=== PATIENT | male | born 1940 | race Caucasian/White ===

== ENCOUNTER → 2019-10-02 | Outpatient (CLI) | payer MEDICARE, SELFPAY ==
[2019-10-02 09:50] VITALS: BMI 40.7
[2019-10-02 12:50] LABS: Anion Gap 5 (5-15); BUN 17 mg/dL (7-18); BUN/Creat Ratio 14.8 RATIO (10-20); Calcium,Total 8.8 mg/dL (8.5-10.1); Chloride 107 mmol/L (98-107); Creatinine, Serum 1.15 mg/dL (0.70-1.30); EST Glomerular Filtration Rate 65 mL/min (>60); Est Glom Filt Rate - Afr Amer 79 mL/min (>60); Glucose 104 mg/dL (74-106); Potassium 3.9 mmol/L (3.5-5.1); Sodium Level 141 mmol/L (136-145)
== END | disposition home or self-care (01) ==
PROVIDERS: PCP Nurse Practitioner Family; Referring Provider Internal Medicine Cardiovascular Disease; Visit Provider Internal Medicine Cardiovascular Disease
DX: I10 Essential (primary) hypertension (principal)
CPT/HCPCS: 36415; 80048

== ENCOUNTER → 2019-10-21 | Outpatient (CLI) | payer MEDICARE, SELFPAY ==
[2019-10-02 09:50] VITALS: BMI 40.7
--- NOTE | 2019-10-21 10:01 | ECHOD_ITS ---
Reason For Study: CAD/ASHD Procedure This was a 2D Doppler, Color Flow transthoracic echocardiogram. Exam performed in department. Left Ventricle Normal LV size. Moderate concentric left ventricular hypertrophy. Left ventricular systolic function is normal. The estimated ejection fraction is 70 %. Stage 1 diastolic dysfunction. No regional wall motion abnormalities noted. Right Ventricle Normal RV size. Normal systolic function. Atria The left atrium is moderately enlarged. Normal right atrium. Mitral Valve Normal mitral valve. Tricuspid Valve Normal tricuspid valve. Aortic Valve Normal aortic valve. Trisinus/trileaflet aortic valve. Pulmonic Valve Normal pulmonic valve. Great Vessels Normal aortic root. The pulmonary artery is normal size. Normal inferior vena cava. Pericardium/Pleural No pericardial effusion. MMode/2D Measurements & Calculations LVIDd: 5.2 cm IVSd: 1.8 cm Ao root diam: 3.3 cm LVIDs: 3.9 cm LVPWd: 1.5 cm RVDd: 3.5 cm FS: 24.9 % LAV(MOD-bp): 120.5 ml LA A4 area: 29.9 cm2 LA dimension(2D): 5.4 cm LAV(MOD-bp) Indexed: 55.9 ml/m2 LAV(MOD-sp2): 110.3 ml LAV(MOD-sp4): 121.3 ml RA A4 area: 19.8 cm2 Time Measurements MV dec time: 0.21 sec Doppler Measurements & Calculations MV E max yuval: 72.0 cm/sec Lat Peak E' Yuval: 5.7 cm/sec Med Peak E' Yuval: 4.7 cm/sec MV A max yuval: 103.7 cm/sec E/E' lat: 12.6 E/E' med: 15.2 MV E/A: 0.69 Ao V2 max: 169.3 cm/sec LV V1 max: 81.9 cm/sec MR max yuval: 572.7 cm/sec Ao max P.5 mmHg LV V1 max P.7 mmHg MR max P.2 mmHg PA V2 max: 94.2 cm/sec TR max yuval: 191.8 cm/sec TR max P.7 mmHg Interpretation Summary Normal LV size. Moderate concentric left ventricular hypertrophy. Left ventricular systolic function is normal. The estimated ejection fraction is 70 %. Stage 1 diastolic dysfunction. The left atrium is moderately enlarged. Ordering Physician: Papa Morgan Referring Physician: Rajesh Caal Performed By: Aaliyah Lares RVT, RDCS and Student
== END | disposition home or self-care (01) ==
PROVIDERS: PCP Nurse Practitioner Family; Referring Provider Internal Medicine Cardiovascular Disease; Visit Provider Internal Medicine Cardiovascular Disease
DX: I25.10 Atherosclerotic heart disease of native coronary artery without angina pectoris (principal)
CPT/HCPCS: 93306

== ENCOUNTER → 2019-12-19 | Outpatient (CLI) | payer MEDICARE, SELFPAY ==
[2019-10-02 09:50] VITALS: BMI 40.7
[2019-12-19 09:08] LABS: Hematocrit 40.2 % (40-54); Hemoglobin 12.9 g/dL (13.0-16.5); Mean Corp Hgb Conc 32.1 g/dL (32-36); Mean Corpuscular Hgb 30.9 pg (27.0-32.0); Mean Corpuscular Volume 96.4 fL (80-94); Mean Platelet Vol. 10.3 fl (6.2-12.0); Platelet Count 132 K/mm3 (150-450); RBC Distribution Width CV 13.9 % (11.6-14.6); RBC Distribution Width SD 48.9 fl (35.1-43.9); Red Blood Count 4.17 M/mm3 (4.6-6.2); White Blood Count 7.1 K/mm3 (4.4-11.0)
[2019-12-19 09:37] LABS: Vitamin D,25 Hydroxy 46.4 ng/mL
[2019-12-19 09:38] LABS: AST(SGOT) 31 U/L (15-37); Alanine Aminotransfer ALT/SGPT 27 U/L (16-61); Albumin, Serum 3.8 g/dL (3.2-5.0); Alkaline Phosphatase 78 U/L (45-117); Anion Gap 4 (5-15); BUN 15 mg/dL (7-18); BUN/Creat Ratio 12.3 RATIO (10-20); Calcium,Total 9.6 mg/dL (8.5-10.1); Chloride 104 mmol/L (98-107); Cholesterol 91 mg/dL (200); Creatinine, Serum 1.22 mg/dL (0.70-1.30); EST Glomerular Filtration Rate 61 mL/min (>60); Est Glom Filt Rate - Afr Amer 74 mL/min (>60); Globulin 3.7 g/dL (2.2-4.2); Glucose 110 mg/dL (74-106); High Density Lipoprotein 28 mg/dL; Potassium 3.7 mmol/L (3.5-5.1); Protein, Total 7.5 g/dL (6.4-8.2); Sodium Level 139 mmol/L (136-145); Triglycerides 118 mg/dL; Very Low Density Lipoprotein 24 mg/dL (5-40)
== END | disposition home or self-care (01) ==
LOC: LAB 08:21
PROVIDERS: PCP Nurse Practitioner Family; Referring Provider Nurse Practitioner Family; Visit Provider Nurse Practitioner Family
DX: E55.9 Vitamin D deficiency, unspecified (principal); I12.9 Hypertensive chronic kidney disease with stage 1 through stage 4 chronic kidney disease, or unspecified chronic kidney disease; N18.9 Chronic kidney disease, unspecified; R73.01 Impaired fasting glucose; E78.5 Hyperlipidemia, unspecified; I25.10 Atherosclerotic heart disease of native coronary artery without angina pectoris
CPT/HCPCS: 36415; 80053; 80061; 82306; 85027

== ENCOUNTER → 2020-06-18 08:51 | Outpatient (CLI) | payer MEDICARE, SELFPAY ==
[2019-10-02 09:50] VITALS: BMI 40.7
[2020-06-18 10:30] LABS: Hematocrit 36.9 % (40-54); Hemoglobin 12.1 g/dL (13.0-16.5); Mean Corp Hgb Conc 32.8 g/dL (32-36); Mean Corpuscular Hgb 31.8 pg (27.0-32.0); Mean Corpuscular Volume 96.9 fL (80-94); Mean Platelet Vol. 10.3 fl (6.2-12.0); Platelet Count 129 K/mm3 (150-450); RBC Distribution Width CV 14.3 % (11.6-14.6); RBC Distribution Width SD 50.6 fl (35.1-43.9); Red Blood Count 3.81 M/mm3 (4.6-6.2); White Blood Count 6.8 K/mm3 (4.4-11.0)
[2020-06-18 10:56] LABS: Vitamin D,25 Hydroxy 37.2 ng/mL
[2020-06-18 11:03] LABS: AST(SGOT) 23 U/L (15-37); Alanine Aminotransfer ALT/SGPT 22 U/L (16-61); Albumin, Serum 3.7 g/dL (3.2-5.0); Alkaline Phosphatase 70 U/L (45-117); Anion Gap 5 (5-15); BUN 20 mg/dL (7-18); BUN/Creat Ratio 17.4 RATIO (10-20); Calcium,Total 9.1 mg/dL (8.5-10.1); Chloride 105 mmol/L (98-107); Cholesterol 97 mg/dL (200); Creatinine, Serum 1.15 mg/dL (0.70-1.30); EST Glomerular Filtration Rate 65 mL/min (>60); Est Glom Filt Rate - Afr Amer 79 mL/min (>60); Globulin 3.7 g/dL (2.2-4.2); Glucose 101 mg/dL (74-106); High Density Lipoprotein 28 mg/dL; Potassium 3.9 mmol/L (3.5-5.1); Protein, Total 7.4 g/dL (6.4-8.2); Sodium Level 141 mmol/L (136-145); Triglycerides 124 mg/dL; Very Low Density Lipoprotein 25 mg/dL (5-40)
== END ==
PROVIDERS: PCP Nurse Practitioner Family; Referring Provider Nurse Practitioner Family; Visit Provider Nurse Practitioner Family
DX: E55.9 Vitamin D deficiency, unspecified (principal); E78.5 Hyperlipidemia, unspecified; I12.9 Hypertensive chronic kidney disease with stage 1 through stage 4 chronic kidney disease, or unspecified chronic kidney disease; N18.9 Chronic kidney disease, unspecified
CPT/HCPCS: 36415; 80053; 80061; 82306; 85027

== ENCOUNTER → 2020-06-29 14:54 | Outpatient (CLI) | payer MEDICARE, SELFPAY ==
[2019-10-02 09:50] VITALS: BMI 40.7
--- NOTE | 2020-06-29 14:57 | VDLE_ITS ---
Reason For Study: Pain in LLE Procedure LEFT This is a venous duplex using B-mode, color GSV is normal. flow and spectral Doppler. CFV is compressible, spontaneous, phasic, Exam performed in department. competent, and demonstrates normal A preliminary report was called and/or faxed augmentation. to [facility]. FV is compressible, spontaneous, phasic, competent and demonstrates normal augmentation. POP V is compressible, spontaneous, phasic, competent and demonstrates normal augmentation. T/P Trunk is compressible. PTV is compressible. LT PerV is compressible. VL/Venous Duplex US, Unilateral Interpretation Summary Left no DVT or SVT. Ordering Physician: Rajesh Caal Referring Physician: Rajesh Caal Performed By: Allison Lund RVT
--- NOTE | 2020-06-29 15:30 | RAD_ITS ---
ACR Level 3 findings have been noted. An addendum which confirms receipt of the report will follow. INDICATION: CHRONIC BACK PAIN THAT IS WORSENING AND NOW HAVING RADICULAR PAIN -- LEFT SIDE EXAMINATION/TECHNIQUE: X-RAY - XR Spine Lumbar 2 or 3 Views COMPARISON: None. FINDINGS: VERTEBRAE: Preserved vertebral body height. Age-indeterminate anterior wedge compression deformity of L1. 7 mm anterolisthesis L4 on L5. Preservation of the normal lumbar lordosis. Mild left convex curvature of the lumbar spine. Severe multilevel facet arthropathy. DISCS: Moderate multilevel disc space narrowing and osteophytosis, most severe at L5-S1. INCLUDED ABDOMEN: Mild air-filled dilatation of the large bowel measuring up to 6.4 cm in diameter. No small bowel dilatation. Partially visualized right hip arthroplasty. RAD/Lumbar Spine 2 or 3 Views IMPRESSION: Mild air-filled dilatation of the large bowel measuring up to 6.4 cm in diameter. No small bowel dilatation. Recommend clinical correlation. Age-indeterminate anterior wedge compression deformity of L1. Grade 1 anterolisthesis L4 on L5. Moderate multilevel lumbar spondylosis. Severe multilevel facet arthropathy. Electronically Signed: Erik Vazquez MD at 16:33 EDT Tel , Service support ,
== END ==
PROVIDERS: PCP Nurse Practitioner Family; Referring Provider Nurse Practitioner Family; Visit Provider Nurse Practitioner Family
DX: M79.662 Pain in left lower leg (principal); M54.5 Low back pain
CPT/HCPCS: 72100; 93971

== ENCOUNTER → 2020-12-21 08:39 | Outpatient (CLI) | payer MEDICARE, SELFPAY ==
[2020-12-21 09:35] LABS: Hematocrit 35.3 % (40-54); Hemoglobin 11.4 g/dL (13.0-16.5); Mean Corp Hgb Conc 32.3 g/dL (32-36); Mean Corpuscular Hgb 31.8 pg (27.0-32.0); Mean Corpuscular Volume 98.3 fL (80-94); Platelet Count 109 K/mm3 (150-450); RBC Distribution Width CV 14.8 % (11.6-14.6); RBC Distribution Width SD 53.1 fl (35.1-43.9); Red Blood Count 3.59 M/mm3 (4.6-6.2); White Blood Count 6.9 K/mm3 (4.4-11.0)
[2020-12-21 10:03] LABS: Vitamin D,25 Hydroxy 34.5 ng/mL
[2020-12-21 10:09] LABS: ALB/GLOB Ratio 0.8 RATIO (0.9-2.4); AST(SGOT) 30 U/L (15-37); Alanine Aminotransfer ALT/SGPT 31 U/L (16-61); Albumin, Serum 3.4 g/dL (3.2-5.0); Alkaline Phosphatase 68 U/L (45-117); Anion Gap 7 (5-15); BUN 20 mg/dL (7-18); BUN/Creat Ratio 16.7 RATIO (10-20); CRP < 2.90 mg/L (0.0-3.0); Calcium,Total 9.2 mg/dL (8.5-10.1); Chloride 107 mmol/L (98-107); Cholesterol 98 mg/dL (200); EST Glomerular Filtration Rate 62 mL/min (>60); Est Glom Filt Rate - Afr Amer 75 mL/min (>60); Globulin 4.1 g/dL (2.2-4.2); Glucose 111 mg/dL (74-106); High Density Lipoprotein 26 mg/dL; PSA,Total- Diagnostic 1.12 ng/mL (0.0-4.0); Potassium 4.1 mmol/L (3.5-5.1); Protein, Total 7.5 g/dL (6.4-8.2); Sodium Level 143 mmol/L (136-145); Triglycerides 142 mg/dL; Very Low Density Lipoprotein 28 mg/dL (5-40)
== END ==
PROVIDERS: PCP Nurse Practitioner Family; Visit Provider Nurse Practitioner Family
DX: D69.6 Thrombocytopenia, unspecified (principal); N40.0 Benign prostatic hyperplasia without lower urinary tract symptoms; E55.9 Vitamin D deficiency, unspecified; I13.0 Hypertensive heart and chronic kidney disease with heart failure and stage 1 through stage 4 chronic kidney disease, or unspecified chronic kidney disease; I50.9 Heart failure, unspecified; N18.9 Chronic kidney disease, unspecified; I25.10 Atherosclerotic heart disease of native coronary artery without angina pectoris; E78.5 Hyperlipidemia, unspecified
CPT/HCPCS: 36415; 80053; 80061; 82306; 83880; 84153; 85027; 86140

== ENCOUNTER 2021-06-29 08:28 | Outpatient (CLI) | payer MEDICARE, SELFPAY ==
[2021-06-29 10:20] LABS: Hematocrit 38.7 % (40-54); Hemoglobin 12.3 g/dL (13.0-16.5); Mean Corp Hgb Conc 31.8 g/dL (32-36); Mean Corpuscular Hgb 31.5 pg (27.0-32.0); Mean Platelet Vol. 10.7 fl (6.2-12.0); Platelet Count 142 K/mm3 (150-450); RBC Distribution Width CV 14.7 % (11.6-14.6); RBC Distribution Width SD 53.9 fl (35.1-43.9); Red Blood Count 3.91 M/mm3 (4.6-6.2); White Blood Count 8.1 K/mm3 (4.4-11.0)
[2021-06-29 10:51] LABS: ALB/GLOB Ratio 0.8 RATIO (0.9-2.4); AST(SGOT) 20 U/L (15-37); Alanine Aminotransfer ALT/SGPT 18 U/L (16-61); Albumin, Serum 3.6 g/dL (3.2-5.0); Alkaline Phosphatase 70 U/L (45-117); Anion Gap 4 (5-15); BUN 17 mg/dL (7-18); BUN/Creat Ratio 14.2 RATIO (10-20); Calcium,Total 8.8 mg/dL (8.5-10.1); Chloride 107 mmol/L (98-107); Cholesterol 103 mg/dL (200); EST Glomerular Filtration Rate 62 mL/min (>60); Est Glom Filt Rate - Afr Amer 75 mL/min (>60); Globulin 4.3 g/dL (2.2-4.2); Glucose 103 mg/dL (74-106); High Density Lipoprotein 28 mg/dL; Potassium 3.7 mmol/L (3.5-5.1); Protein, Total 7.9 g/dL (6.4-8.2); Sodium Level 142 mmol/L (136-145); Triglycerides 187 mg/dL; Very Low Density Lipoprotein 37 mg/dL (5-40)
[2021-06-29 10:52] LABS: Vitamin D,25 Hydroxy 39.9 ng/mL
== END 2021-06-29 23:59 | disposition home or self-care (01) ==
LOC: LAB 08:30
PROVIDERS: PCP Nurse Practitioner Family; Referring Provider Nurse Practitioner Family; Visit Provider Nurse Practitioner Family
DX: D53.9 Nutritional anemia, unspecified (principal); I12.9 Hypertensive chronic kidney disease with stage 1 through stage 4 chronic kidney disease, or unspecified chronic kidney disease; E78.5 Hyperlipidemia, unspecified; N18.9 Chronic kidney disease, unspecified; E55.9 Vitamin D deficiency, unspecified
CPT/HCPCS: 36415; 80053; 80061; 82306; 85027

== ENCOUNTER → 2022-01-06 | Outpatient (CLI) | payer MEDICARE, SELFPAY ==
[2022-01-06 09:04] LABS: Hematocrit 40.2 % (40-54); Hemoglobin 13.1 g/dL (13.0-16.5); Mean Corp Hgb Conc 32.6 g/dL (32-36); Mean Corpuscular Hgb 32.3 pg (27.0-32.0); Mean Corpuscular Volume 99.3 fL (80-94); Mean Platelet Vol. 10.5 fl (6.2-12.0); Platelet Count 118 K/mm3 (150-450); RBC Distribution Width CV 13.9 % (11.6-14.6); RBC Distribution Width SD 50.9 fl (35.1-43.9); Red Blood Count 4.05 M/mm3 (4.6-6.2); White Blood Count 8.3 K/mm3 (4.4-11.0)
[2022-01-06 09:33] LABS: BNP,B-Type NATRIURETIC PEPTIDE 108.8 pg/mL (0-100)
[2022-01-06 09:35] LABS: ALB/GLOB Ratio 0.8 RATIO (0.9-2.4); AST(SGOT) 25 U/L (15-37); Alanine Aminotransfer ALT/SGPT 22 U/L (16-61); Albumin, Serum 3.5 g/dL (3.2-5.0); Alkaline Phosphatase 76 U/L (45-117); Anion Gap 5 (5-15); BUN 22 mg/dL (7-18); BUN/Creat Ratio 16.2 RATIO (10-20); Calcium,Total 9.4 mg/dL (8.5-10.1); Chloride 107 mmol/L (98-107); Cholesterol 95 mg/dL (200); Creatinine, Serum 1.36 mg/dL (0.70-1.30); EST Glomerular Filtration Rate 53 mL/min (>60); Est Glom Filt Rate - Afr Amer 65 mL/min (>60); Globulin 4.2 g/dL (2.2-4.2); Glucose 113 mg/dL (74-106); High Density Lipoprotein 29 mg/dL; Potassium 3.9 mmol/L (3.5-5.1); Protein, Total 7.7 g/dL (6.4-8.2); Sodium Level 143 mmol/L (136-145); Triglycerides 150 mg/dL; Very Low Density Lipoprotein 30 mg/dL (5-40); Vitamin D,25 Hydroxy 42.4 ng/mL
== END | disposition home or self-care (01) ==
LOC: LAB 08:24
PROVIDERS: PCP Nurse Practitioner Family; Referring Provider Nurse Practitioner Family; Visit Provider Nurse Practitioner Family
DX: N18.9 Chronic kidney disease, unspecified (principal); I50.9 Heart failure, unspecified; I13.0 Hypertensive heart and chronic kidney disease with heart failure and stage 1 through stage 4 chronic kidney disease, or unspecified chronic kidney disease; D53.9 Nutritional anemia, unspecified; R73.01 Impaired fasting glucose; E78.5 Hyperlipidemia, unspecified; E55.9 Vitamin D deficiency, unspecified
CPT/HCPCS: 36415; 80053; 80061; 82306; 83880; 85027

== ENCOUNTER 2022-04-24 17:30 | Inpatient (IN) | payer MEDICARE, SELFPAY ==
[2022-04-24] VITALS (11 sets, daily range): BP systolic 94–135; BP diastolic 43–122; PULSE 69–140; RESP 16–22; TEMP 35.6–36.6; O2SAT 92–100; BMI 41.0; BMI 38.9
--- NOTE | 2022-04-24 17:46 | EDS_ITS ---
HPI HPI - GI History of Present Illness Chief Complaint: GI Bleed Informant: patient Nausea/Vomiting/Emesis GI Symptom: Positive for Nausea and Vomiting Onset: Today Quality: Positive for - (Dark brown) Severity: Moderate Diarrhea/Melena/Hematochezia GI Symptom: Positive for Hematochezia Onset: Today Stool Quality: Positive for BRB per rectum Severity: Moderate Associated Symptoms Associated Symptoms: Negative for Dysuria, Frequency or Hematuria Narrative Narrative: Patient presents with rectal bleeding and hematemesis. Patient states his em esis is dark brown. Patient denies any coffee grounds. Patient states he is passing bright red blood from his rectum. Patient states he has a history of hemorrhoids and initially thought that it was due to his hemorrhoids. Patient denies any lightheadedness or dizziness. Patient denies any chest pain or palpitations. Patient denies any shortness of breath or cough. Patient does admit to some mild chills. Patient denies any abdominal pain. Patient denies any urinary complaints. 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 BPH (benign prostatic hyperplasia) Cardiac arrest (11/2015) COVID-19 virus detected (03/21/21) Essential (primary) hypertension GERD (gastroesophageal reflux disease) Hyperlipidemia Obesity Obstructive sleep apnea Syncope and collapse Home Medications aspirin 81 mg tablet,delayed release (Adult Aspirin Regimen) 81 mg PO QDAY 03/22/17 [History Last Taken Unknown] atenolol 50 mg tablet 50 mg PO BID #180 tabs 05/03/18 [Rx Last Taken Unknown] losartan 100 mg tablet 100 mg PO DAILY #90 tabs 05/03/18 [Rx Last Taken Unknown] omega-3 fatty acids 1,000 mg capsule (Fish Oil Concentrate) 1,000 mg PO DAILY 09/30/20 [History Last Taken Unknown] furosemide 40 mg tablet (Lasix) 40 mg PO DAILY #90 tabs 06/07/21 [Rx Last Taken Unknown] nitroglycerin 0.4 mg sublingual tablet 0.4 mg sublingual Q5-15M PRN chest pain #25 tabs 06/07/21 [Rx Last Taken Unknown] atorvastatin 80 mg tablet 80 mg PO QDAY #90 tabs 07/05/21 [Rx Last Taken Unknown] cinnamon bark 500 mg capsule (Cinnamon) 500 mg PO DAILY 12/08/21 [History Last Taken Unknown] clopidogrel 75 mg tablet (Plavix) 75 mg PO QDAY #90 tabs 12/08/21 [Rx Last Taken Unknown] niacin 500 mg tablet 500 mg PO DAILY 12/08/21 [History Last Taken Unknown] Allergy/AdvReac Type Severity Reaction Status Date / Time No Known Allergies Allergy Verified 12/08/21 13:44 Family History (Updated 04/24/22 @ 21:[address] Liberty Dan MD) Father CAD (coronary artery disease) Heart disease Hypertension Myocardial infarction Brother CAD (coronary artery disease) Heart disease Hypertension Myocardial infarction Mother CAD (coronary artery disease) Heart disease Hypertension Myocardial infarction Other Diabetes Surgical History History of coronary artery stent placement (12/07/15) History of hemorrhoidectomy (1972) History of right hip replacement (09/2013) Social History (Updated 04/24/22 @ 21:[address] Liberty Dan MD) household members: spouse Smoking Status: Former smoker how long ago did patient quit smoking: Quit in his 30s, smoked since teen (~ 15-20 years), < 1 ppd day. alcohol intake: former substance use type: does not use caffeine: Yes Type: tea Number of servings: 2 ROS ROS ED Constitutional Constitutional ED: Reports chills and subjective; Denies fever(s) Eyes Eyes: Denies blurry vision or change in vision ENT ENT ED: Denies rhinorrhea or sore throat Cardiovascular Cardiovascular: Denies chest pain or palpitations Respiratory/Chest Respiratory/Chest: Denies cough or dyspnea Gastrointestinal Gastrointestinal: Reports melena, nausea and vomiting; Denies abdominal pain Genitourinary Genitourinary ED: Denies dysuria or hematuria Musculoskeletal Musculoskeletal: Denies back pain or neck pain Integumentary Denies abscess or rash Neurologic Neurologic: Denies headache(s) or weakness Allergic/Immunologic Allergic/Immunologic ED: Denies mouth swelling or urticaria EXAM Physical Exam Const Vital Signs: 04/24/22 17:31 04/24/22 18:30 04/24/22 19:58 Temperature 96.1 F L Temperature Source Temporal Pulse Rate 69 117 H 126 H Respiratory Rate 18 22 H 18 Blood Pressure 135/122 H 103/43 L 109/54 L Blood Pressure Mean 126 63 72 Pulse Ox 92 97 Oxygen Delivery Method Room Air Nasal Cannula Oxygen Flow Rate (L/min) 3 04/24/22 21:00 Temperature Temperature Source Pulse Rate 113 H Respiratory Rate 18 Blood Pressure 105/74 Blood Pressure Mean 84 Pulse Ox 98 Oxygen Delivery Method Nasal Cannula Oxygen Flow Rate (L/min) 3 Positive well nourished and well developed General Appearance ED: well developed HEENT Reports moist mucous membranes Neck supple and no JVD Resp normal respiratory effort and clear to auscultation bilaterally Cardio regular rate, regular rhythm and no murmurs GI normal to inspection, nondistended, normoactive bowel sounds and non-tender GI Narrative: Rectal exam showed dark blood on the perineum and rectal area. Because of this, stool Hemoccult was canceled since it is obviously positive. Palpation: soft Rectal Exam: heme positive stool Extremity normal to inspection General Extremety ED: Negative for edema or tenderness General Extremity: Negative for edema Neuro oriented x3, CN's II-XII intact bilaterally and no sensory deficits noted Sensorium / Orientation: alert Motor Exam: strength 5/5 throughout Psych mental status grossly normal Skin no rashes or lesions noted MDM MDM MDM Narrative Medical decision making narrative: Differential diagnosis includes upper gastrointestinal bleeding, lower gastrointestinal bleeding, peptic ulcer disease, coagulopathy, and cancer. CBC will be obtained to assess for anemia and leukocytosis. Comprehensive metabolic profile will be obtained to assess for electrolyte abnormality, renal function, and hepatic function. PT was INR and PTT will be obtained to assess for coagulopathy. CT scan of the abdomen pelvis will be obtained to assess for mass, or inflammatory process. Stool occult blood will be obtained to assess for gastrointestinal bleeding. Lab Data Attestation: I reviewed the patient's lab results. Lab results narrative: CBC was reviewed. There is a leukocytosis of 21.3. Hemoglobin was 8.3 and hematocrit was 27.8. This is a significant drop from previous outpatient result which was 13.1 on 01/06/2022. Pro time with INR was reviewed. Pro time was 15.6 and INR is 1.3. PTT was reviewed and was normal. Comprehensive metabolic profile was reviewed and showed a CO2 of 15 with an anion gap of 21. BUN was 52 and creatinine was 2.43. Glucose was slightly elevated at 247. Blood type was O+. Screen was negative. Labs: Laboratory Results - last 24 hr 04/24/22 04/24/22 04/24/22 17:48 17:48 17:48 WBC 21.3 H RBC 2.60 L Hgb 8.3 L Hct 27.8 L MCV 106.9 H MCH 31.9 MCHC 29.9 L RDW Std Deviation 58.1 H RDW Coeff of Maura 14.9 H Plt Count 175 MPV 11.5 Immature Gran % (Auto) 1.000 H Neut % (Auto) 78.9 H Lymph % (Auto) 12.3 L [place] % (Auto) 7.6 Eos % (Auto) 0.0 Baso % (Auto) 0.2 Absolute Neuts (auto) 16.8 H Absolute Lymphs (auto) 2.63 Nucleated RBC % 0 Differential Comment SCANNED Diff Path Review May foll PT 15.6 H INR 1.3 APTT 27.5 Sodium 145 Potassium 3.8 Chloride 109 H Carbon Dioxide 15.0 L Anion Gap 21 H BUN 52 H Creatinine 2.43 H Estim Creat Clear Calc 20.74 Est GFR (MDRD) Af Amer 33 L Est GFR (MDRD) Non-Af 27 L BUN/Creatinine Ratio 21.4 H Glucose 247 H Calcium 8.5 Total Bilirubin 0.30 AST 30 ALT 19 Alkaline Phosphatase 47 Total Protein 6.5 Albumin 3.1 L Globulin 3.4 Albumin/Globulin Ratio 0.9 Blood Type Antibody Screen Crossmatch 04/24/22 04/24/22 17:50 17:50 WBC RBC Hgb Hct MCV MCH MCHC RDW Std Deviation RDW Coeff of Maura Plt Count MPV Immature Gran % (Auto) Neut % (Auto) Lymph % (Auto) [place] % (Auto) Eos % (Auto) Baso % (Auto) Absolute Neuts (auto) Absolute Lymphs (auto) Nucleated RBC % Differential Comment Diff Path Review PT INR APTT Sodium Potassium Chloride Carbon Dioxide Anion Gap BUN Creatinine Estim Creat Clear Calc Est GFR (MDRD) Af Amer Est GFR (MDRD) Non-Af BUN/Creatinine Ratio Glucose Calcium Total Bilirubin AST ALT Alkaline Phosphatase Total Protein Albumin Globulin Albumin/Globulin Ratio Blood Type O POSITIVE Antibody Screen NEGATIVE Crossmatch See Detail Radiography Diagnostic Testing: Clinical Impression(s) from Imaging Studies Abdomen CT 04/24/22 18:18 IMPRESSION: (NOT LISTED IN ORDER OF SIGNIFICANCE) The urinary bladder is distended. This can suggest urinary retention. Hyperdense fluid in the rectal vault may represent prior oral contrast administration. However this may also represent blood products. Other findings as above. Electronically Signed: Triston Friedman MD at 20:06 EST , CT scan of the abdomen pelvis was reviewed. On my independent review, there is a distended bladder. There is no perforation or obstruction. There is no free air noted. There is no free fluid. Radiologist also interpreted the CT scan and noted hyperdense fluid in the rectal vault which may represent either prior oral contrast administration or blood products. Given the patient's rectal bleeding is most likely blood. Treatment and Re-Evaluation Narrative: Case was discussed with Dr. Vega from general surgery. She will help with any urgent surgical problem but recommended consulting Dr. Major tomorrow. If he is unavailable she will be able to see the patient in consultation tomorrow. Case was discussed with the hospitalist. She recommended admitting the patient to ICU. She also recommended obtaining a urinalysis and serum acetone level because of the anion gap acidosis. These were ordered. Patient and family understand and are agreeable with the plan. All questions were answered. Critical Care Time Critical Care Time: Yes Critical care time (excluding procedures): 30-74 minutes (38), Including time spent:, Discussing w/Patient &/or Family/Petroleum Inspector Supervisor, Discussing w/Consultants, Arranging Admission or Transfer and Performing Direct Patient Care at Bedside Discharge Plan Triage Chief Complaint: GI Bleed Other Complaint: Nausea/Vomiting ED Provider: Daniele Hammer Dx/Rx/DC Orders Clinical Impression: Gastrointestinal bleeding, Anemia, High anion gap metabolic acidosis, Acute kidney injury Primary Care Provider: Rajesh Caal NP Disposition Disposition: Acute Care [facility]
[2022-04-24 18:00] LABS: Absolute Lymphocyte Count 2.63 X10^3/uL (0.83-4.51); Absolute Neutrophil Count 16.8 X10^3/uL (2.0-7.7); Basophil# 0.04 X10^3/uL; Basophil% 0.2 % (0-1); Eosinophil# 0.01 X10^3/uL; Hematocrit 27.8 % (40-54); Hemoglobin 8.3 g/dL (13.0-16.5); Lymphocyte # 2.63 X10^3/ul (0.83-4.51); Lymphocyte % 12.3 % (19-41); Mean Corp Hgb Conc 29.9 g/dL (32-36); Mean Corpuscular Hgb 31.9 pg (27.0-32.0); Mean Corpuscular Volume 106.9 fL (80-94); Mean Platelet Vol. 11.5 fl (6.2-12.0); Monocyte# 1.62 X10^3/uL; Monocyte% 7.6 % (0-10); NRBC Flagged by Analyzer 0 % (0-5); Neutrophil % 78.9 % (47-70); POSITIVE DIFFERENTIAL YES; Platelet Count 175 K/mm3 (150-450); RBC Distribution Width CV 14.9 % (11.6-14.6); RBC Distribution Width SD 58.1 fl (35.1-43.9); White Blood Count 21.3 K/mm3 (4.4-11.0)
[2022-04-24] MEDS: Ondansetron 4 MG/2 ML Vial IV (18:07)
[2022-04-24 18:08] LABS: Differential Indicated SCAN CRITERIA MET
[2022-04-24 18:11] LABS: International Normalized Ratio 1.3; Partial Thromboplast Time 27.5 Seconds (24.1-36.2); Prothrombin Time (Protime)PT. 15.6 SECONDS (11.7-14.9)
[2022-04-24 18:16] LABS: ALB/GLOB Ratio 0.9 RATIO (0.9-2.4); AST(SGOT) 30 U/L (15-37); Alanine Aminotransfer ALT/SGPT 19 U/L (16-61); Albumin, Serum 3.1 g/dL (3.2-5.0); Alkaline Phosphatase 47 U/L (45-117); Anion Gap 21 (5-15); BUN 52 mg/dL (7-18); BUN/Creat Ratio 21.4 RATIO (10-20); Calcium,Total 8.5 mg/dL (8.5-10.1); Chloride 109 mmol/L (98-107); Creatinine, Serum 2.43 mg/dL (0.70-1.30); EST Glomerular Filtration Rate 27 mL/min (>60); Est Glom Filt Rate - Afr Amer 33 mL/min (>60); Estimated Creatinine Clearance 20.74 ml/min; Globulin 3.4 g/dL (2.2-4.2); Glucose 247 mg/dL (74-106); Potassium 3.8 mmol/L (3.5-5.1); Protein, Total 6.5 g/dL (6.4-8.2); Sodium Level 145 mmol/L (136-145)
--- NOTE | 2022-04-24 18:18 | CT_ITS ---
STUDY: CT Abdomen And Pelvis W/O Contrast Injection 04/24/2022 8:02 PM REASON FOR EXAM: Male, 81 years old. RECTAL BLEEDING, COFFEE GROUND EMESIS X 2 DAYS, [place],CHF,HTN pain Abdominal pain Individualized dose optimization techniques were used for this CT. COMPARISON: None. TECHNIQUE: CT Abdomen And Pelvis W/O Contrast Injection FINDINGS: There are atherosclerotic calcifications of visualized coronary arteries. The visualized portions of the heart are within normal limits. Normal liver. Normal gallbladder and extrahepatic biliary system. Normal spleen. Normal pancreas. Normal bilateral adrenal glands. No acute findings of the right kidney. No acute findings of the left kidney. Oral contrast in the visualized stomach. Normal small intestine. Normal colon. There is non-visualization of the appendix. There are calcifications of the abdominal aorta. This is consistent for atherosclerotic disease. There is NO abdominal aortic aneurysm. Vascular workup can be obtained based on clinical correlation. Normal inferior vena cava. Subcentimeter mesenteric lymph nodes. There is a right urinary bladder diverticulum or ureterocele. There are prostatic calcifications. The urinary bladder is distended. This can suggest urinary retention. Hyperdense fluid in the rectal vault may represent prior oral contrast administration. However this may also represent blood products. There is an umbilical hernia containing fat. There are diffuse degenerative changes of the visualized lumbar spine. Total right hip arthroplasty. CT/Abdomen/Pel W ORAL Cont Only IMPRESSION: (NOT LISTED IN ORDER OF SIGNIFICANCE) The urinary bladder is distended. This can suggest urinary retention. Hyperdense fluid in the rectal vault may represent prior oral contrast administration. However this may also represent blood products. Other findings as above. Electronically Signed: Triston Friedman MD at 20:06 EST ,
[2022-04-24 18:28] LABS: Differential Comment SCANNED
[2022-04-24] MEDS: 0.9% Normal Saline 1,000 ML 1000 ML IV (19:55)
--- NOTE | 2022-04-24 21:54 | NURSING ---
pt straight cath for 800cc urine sample collected and sent to lab. pt tolerated well.
--- NOTE | 2022-04-24 21:55 | ED.RN ---
attempted to contact pt Nilsa sandhu parth.
[2022-04-24 22:08] LABS: Mucous, Urine 0 SEEN /hpf (<or=2+); Red Blood Cells-Urine 0 SEEN /hpf (0-5); Squamous Epithelial Cells - UA 0 SEEN /hpf (0-5)
[2022-04-24 22:25] LABS: Magnesium 2.2 mg/dL (1.6-2.6); Phosphorus 4.8 mg/dL (2.5-4.9)
[2022-04-24 22:26] LABS: Color, Urine Yellow (Yellow); Glucose, Dipstick Normal (Normal); Ketone-Dipstick 5 mg/dl (Negative); Leukocyte Esterase-Dipstick Negative /ul (Negative); Nitrite-Dipstick Negative (Negative); Occult Blood-Urine 10 /ul (Negative); Protein-Dipstick 30 mg/dl (Negative); Specific Gravity, Urine 1.025 (1.002-1.030); Urine Bilirubin Dipstick Negative (Negative); Urine Clarity Sl. Cloudy (Clear); Urine Urobilinogen Normal (Normal)
[2022-04-24] MEDS: 0.9% Normal Saline 1,000 ML 100 ML IV (22:30)
[2022-04-24 22:41] LABS: Hyaline Cast 5-10 SEEN /lpf (0-5); White Blood Cells 0-5 SEEN /hpf (0-5)
[2022-04-24 22:42] LABS: Bacteria RARE /hpf (None Seen)
[2022-04-24 22:59] LABS: Hematocrit 23.7 % (40-54); Hemoglobin 7.6 g/dL (13.0-16.5)
--- NOTE | 2022-04-24 23:00 | EX.PCM.CON.G ---
HPI Consult Data Date of Consult: 04/24/22 HPI Narrative Reason for Consultation: GI bleed HPI Narrative: SOULEYMANE DUGGAN, is a 81 M who presents with rectal bleeding and hematemesis.? He has a history of coronary artery disease status post ventricular fibrillation arrest who underwent cardiac catheterization with angioplasty and stenting to the circumflex artery branch in 2016.? He also has a history of hypertension, hyperlipidemia, obesity. Patient states his emesis is dark brown.? Patient denies any coffee grounds.? Patient states he is passing bright red blood from his rectum.? Patient states he has a history of hemorrhoids and initially thought that it was due to his hemorrhoids.? Patient denies any lightheadedness or dizziness.? Patient denies any chest pain or palpitations.? Patient denies any shortness of breath or cough.? Patient does admit to some mild chills.? Patient denies any abdominal pain.? Patient denies any urinary complaints. He does take Plavix on a daily basis and aspirin on a daily basis. CT scan of the abdomen pelvis displayed: The urinary bladder is distended.? This can suggest urinary retention. Hyperdense fluid in the rectal vault may represent prior oral contrast administration. However this may also represent blood products. There were no signs of cirrhosis or portal hypertension. COUNTS INCLUDE 234 BEDS AT THE [facility] Medical History Atherosclerosis of [place] coronary artery of [place] heart without angina pectoris BPH (benign prostatic hyperplasia) Cardiac arrest (11/2015) COVID-19 virus detected (03/21/21) Essential (primary) hypertension GERD (gastroesophageal reflux disease) Hyperlipidemia Obesity Obstructive sleep apnea Syncope and collapse Home Medications aspirin 81 mg tablet,delayed release (Adult Aspirin Regimen) 81 mg PO QDAY 03/22/17 [History Last Taken Unknown] atenolol 50 mg tablet 50 mg PO BID #180 tabs 05/03/18 [Rx Last Taken Unknown] losartan 100 mg tablet 100 mg PO DAILY #90 tabs 05/03/18 [Rx Last Taken Unknown] omega-3 fatty acids 1,000 mg capsule (Fish Oil Concentrate) 1,000 mg PO DAILY 09/30/20 [History Last Taken Unknown] furosemide 40 mg tablet (Lasix) 40 mg PO DAILY #90 tabs 06/07/21 [Rx Last Taken Unknown] nitroglycerin 0.4 mg sublingual tablet 0.4 mg sublingual Q5-15M PRN chest pain #25 tabs 06/07/21 [Rx Last Taken Unknown] atorvastatin 80 mg tablet 80 mg PO QDAY #90 tabs 07/05/21 [Rx Last Taken Unknown] cinnamon bark 500 mg capsule (Cinnamon) 500 mg PO DAILY 12/08/21 [History Last Taken Unknown] clopidogrel 75 mg tablet (Plavix) 75 mg PO QDAY #90 tabs 12/08/21 [Rx Last Taken Unknown] niacin 500 mg tablet 500 mg PO DAILY 12/08/21 [History Last Taken Unknown] Allergy/AdvReac Type Severity Reaction Status Date / Time No Known Allergies Allergy Verified 12/08/21 13:44 Family History Father CAD (coronary artery disease) Heart disease Hypertension Myocardial infarction Brother CAD (coronary artery disease) Heart disease Hypertension Myocardial infarction Mother CAD (coronary artery disease) Heart disease Hypertension Myocardial infarction Other Diabetes Surgical History History of coronary artery stent placement (12/07/15) History of hemorrhoidectomy (1972) History of right hip replacement (09/2013) Social History household members: spouse Smoking Status: Former smoker how long ago did patient quit smoking: Quit in his 30s, smoked since teen (~ 15-20 years), < 1 ppd day. alcohol intake: former substance use type: does not use caffeine: Yes Type: tea Number of servings: 2 ROS ROS Narrative Unable to obtain secondary to acute medical status Physical Exam Const alert, oriented x3, no apparent distress and average body habitus General Appearance: cooperative, well kempt and well developed Orientation / Consciousness: awake, oriented to person, oriented to place and oriented to time HEENT normocephalic, head/scalp atraumatic and moist oral mucous membranes Eyes PERRL, EOMs intact bilaterally and conjunctivae normal Neck supple, no JVD, thyroid normal and no carotid bruits General: trachea midline Resp normal respiratory effort, no retractions, no use of accessory muscles and clear to auscultation bilaterally Auscultation: Negative for rales, rhonchi or wheezes Cardio regular rate, regular rhythm, S1 normal heart sound, S2 normal heart sound, no murmurs, no rub and no gallops GI normal to inspection, nondistended, normoactive bowel sounds, soft to palpation, non-tender and non-distended Extremity no clubbing, cyanosis or edema Skin no rashes or lesions noted General Skin Exam: no breakdown Neuro oriented x3, CN's II-XII intact bilaterally, moves all extremities, no focal motor deficits and no sensory deficits noted Sensorium / Orientation: awake, alert, oriented to person, oriented to place and oriented to time Speech: speech normal Psych affect normal Lab / Micro Data Result Diagrams: 04/25/22 16:10 04/25/22 05:08 Labs: Laboratory Results - last 24 hr 04/24/22 17:48: WBC 21.3 H, RBC 2.60 L, Hgb 8.3 L, Hct 27.8 L, MCV 106.9 H, MCH 31.9, MCHC 29.9 L, RDW Std Deviation 58.1 H, RDW Coeff of Maura 14.9 H, Plt Count 175, MPV 11.5, Immature Gran % (Auto) 1.000 H, Neut % (Auto) 78.9 H, Lymph % (Auto) 12.3 L, [place] % (Auto) 7.6, Eos % (Auto) 0.0, Baso % (Auto) 0.2, Absolute Neuts (auto) 16.8 H, Absolute Lymphs (auto) 2.63, Nucleated RBC % 0, Differential Comment SCANNED, Diff Path Review Reviewed 04/24/22 17:48: PT 15.6 H, INR 1.3, APTT 27.5 04/24/22 17:48: Sodium 145, Potassium 3.8, Chloride 109 H, Carbon Dioxide 15.0 L, Anion Gap 21 H, BUN 52 H, Creatinine 2.43 H, Estim Creat Clear Calc 20.74, Est GFR (MDRD) Af Amer 33 L, Est GFR (MDRD) Non-Af 27 L, BUN/Creatinine Ratio 21.4 H, Glucose 247 H, Calcium 8.5, Total Bilirubin 0.30, AST 30, ALT 19, Alkaline Phosphatase 47, Total Protein 6.5, Albumin 3.1 L, Globulin 3.4, Albumin/Globulin Ratio 0.9 04/24/22 17:48: Phosphorus 4.8, Magnesium 2.2 04/24/22 17:50: Blood Type O POSITIVE, Antibody Screen NEGATIVE 04/24/22 17:50: Crossmatch See Detail 04/24/22 22:00: Acetone Level NEGATIVE 04/24/22 22:00: Urine Color Yellow, Urine Clarity Sl. Cloudy, Urine pH 5.0, Ur Specific [place] 1.025, Urine Protein 30 H, Urine Glucose (UA) Normal, Urine Ketones 5 H, Urine Occult Blood 10 H, Urine Nitrite Negative, Urine Bilirubin Negative, Urine Urobilinogen Normal, Ur Leukocyte Esterase Negative, Urine RBC 0 SEEN, Urine WBC 0-5 SEEN, Ur Squamous Epith Cells 0 SEEN, Urine Bacteria RARE, Hyaline Casts 5-10 SEEN, Urine Mucus 0 SEEN 04/24/22 22:53: Hgb 7.6 L, Hct 23.7 L 04/25/22 05:08: Hgb 8.0 L, Hct 24.6 L 04/25/22 05:08: Sodium 144, Potassium 4.5, Chloride 110 H, Carbon Dioxide 21.0, Anion Gap 13, BUN 65 H, Creatinine 2.06 H, Estim Creat Clear Calc 25.38, Est GFR (MDRD) Af Amer 40 L, Est GFR (MDRD) Non-Af 33 L, BUN/Creatinine Ratio 31.6 H, Glucose 193 H, Calcium 8.1 L, Total Bilirubin 0.70, AST 37, ALT 18, Alkaline Phosphatase 37 L, Total Protein 5.6 L, Albumin 2.8 L, Globulin 2.8, Albumin/Globulin Ratio 1.0 04/25/22 05:08: Hemoglobin A1c 5.6 04/25/22 05:08: Phosphorus 3.4, Magnesium 2.1 04/25/22 10:00: Hgb 10.7 L, Hct 33.3 L 04/25/22 16:10: Hgb 9.8 L, Hct 30.4 L Radiology Impression Abdomen CT 04/24/22 18:18 IMPRESSION: (NOT LISTED IN ORDER OF SIGNIFICANCE) The urinary bladder is distended. This can suggest urinary retention. Hyperdense fluid in the rectal vault may represent prior oral contrast administration. However this may also represent blood products. Other findings as above. Electronically Signed: Tritson Friedman MD at 20:06 EST , Chest X-Ray 04/25/22 07:20 IMPRESSION: No radiographic evidence of acute cardiopulmonary disease. Electronically Signed: Brandon Roland MD at 7:47 EST , Assessment & Plan Assessment/Plan (1) Gastrointestinal bleeding: PLAN: The differential diagnosis for his upper GI bleed is likely secondary to antiplatelet induced peptic ulcer disease, angiodysplasia, Angely-Cuello tear, Rojas's erosions with telangiectasias, erosive esophagitis. Recommend octreotide drip and PPI drip. He will undergo an upper endoscopy. Him and his were explained alternatives, risk, benefits including not withstanding bleeding, infection, sepsis, perforation, need for urgent . He will have an ASA of 3. Charges/Coding Visit Charges Inpatient E&M: 49265 Init Hosp L2
--- NOTE | 2022-04-24 23:18 | PCM.HP.STD ---
HPI - General General Date of Admission: 04/24/22 Date of Service: 04/24/22 Chief Complaint: Acute Hematemesis, rectal bleeding/clots HPI Narrative The patient is an 81 y/o M w/ PMHx: CAD s/p PCI with Hx prior cardiac arrest, HTN, HLD, Morbid Obesity, KRISTY, GERD, Hx COVID-19, Former tobacco use who presents to the [facility] ED on 04/24/22 with history of persistent nausea and emesis with dark brown appearing emesis with additionally bright red blood per rectum and hematochezia initially thinking that potentially was secondary to hemorrhoids however persisted and then he started to have hematemesis although denies any lightheadedness or dizziness no any chest pain or palpitations or dyspnea but ongoing prompted ED evaluation. Per discussion with ED physician following completion of the CT of his abdomen he did have transient hypotension and reportedly his blood pressure dropped to a systolic of 50s to 60s but was very responsive to IV fluid boluses. He notes that with any movement he becomes lightheaded and dizzy. Work-up in the ED included T96.1, heart rate initially 69 with most recent repeat 117, BP initially 135/122 with most recent repeat 103/43, respiratory rate 22, 92% on room air, CBC with WC 21.3, hemoglobin 8.3, MCV 106.9, platelet 175 with significant left shift, coags with PT 15.6 otherwise not marked appearing, CMP with chloride 109, carbon dioxide 15, anion gap 21, BUN/creat 52/2.43, glucose 247, hepatic profile not marked appearing, type and screen pending per ED, CT abdomen and pelvis with noted distended urinary bladder with possible urinary retention as an etiology, hyperdense fluid in the rectal vault possibly prior oral contrast however could represent a blood product in the ED patient is started 1 L normal saline bolus as well as Zofran. ED discussed case with Dr. Vega and recommended also consultation with Dr. Major GI. Reviewed case with both general surgery and also contacted Dr. Major with gastroenterology who recommended patient be initiated both on IV Protonix continuous drip and octreotide intravenously. Reviewed plan of care with patient including evaluation by these physicians in addition to planned ICU admission with airplane patroller involvement concurrently. [facility] Medical History Atherosclerosis of [place] coronary artery of [place] heart without angina pectoris BPH (benign prostatic hyperplasia) Cardiac arrest (11/2015) COVID-19 virus detected (03/21/21) Essential (primary) hypertension GERD (gastroesophageal reflux disease) Hyperlipidemia Obesity Obstructive sleep apnea Syncope and collapse Home Medications aspirin 81 mg tablet,delayed release (Adult Aspirin Regimen) 81 mg PO QDAY 03/22/17 [History Last Taken Unknown] atenolol 50 mg tablet 50 mg PO BID #180 tabs 05/03/18 [Rx Last Taken Unknown] losartan 100 mg tablet 100 mg PO DAILY #90 tabs 05/03/18 [Rx Last Taken Unknown] omega-3 fatty acids 1,000 mg capsule (Fish Oil Concentrate) 1,000 mg PO DAILY 09/30/20 [History Last Taken Unknown] furosemide 40 mg tablet (Lasix) 40 mg PO DAILY #90 tabs 06/07/21 [Rx Last Taken Unknown] nitroglycerin 0.4 mg sublingual tablet 0.4 mg sublingual Q5-15M PRN chest pain #25 tabs 06/07/21 [Rx Last Taken Unknown] atorvastatin 80 mg tablet 80 mg PO QDAY #90 tabs 07/05/21 [Rx Last Taken Unknown] cinnamon bark 500 mg capsule (Cinnamon) 500 mg PO DAILY 12/08/21 [History Last Taken Unknown] clopidogrel 75 mg tablet (Plavix) 75 mg PO QDAY #90 tabs 12/08/21 [Rx Last Taken Unknown] niacin 500 mg tablet 500 mg PO DAILY 12/08/21 [History Last Taken Unknown] Allergy/AdvReac Type Severity Reaction Status Date / Time No Known Allergies Allergy Verified 12/08/21 13:44 Family History Father CAD (coronary artery disease) Heart disease Hypertension Myocardial infarction Brother CAD (coronary artery disease) Heart disease Hypertension Myocardial infarction Mother CAD (coronary artery disease) Heart disease Hypertension Myocardial infarction Other Diabetes Surgical History History of coronary artery stent placement (12/07/15) History of hemorrhoidectomy (1972) History of right hip replacement (09/2013) Social History household members: spouse Smoking Status: Former smoker how long ago did patient quit smoking: Quit in his 30s, smoked since teen (~ 15-20 years), < 1 ppd day. alcohol intake: former substance use type: does not use caffeine: Yes Type: tea Number of servings: 2 ROS ROS Narrative Admission Review of Systems: CONSTITUTIONAL: No weight loss, fever, chills, + weakness or fatigue. HEENT: Eyes: No visual loss, blurred vision, double vision or yellow sclerae. Ears, Nose, Throat: No hearing loss, sneezing, congestion, runny nose or sore throat. SKIN: No rash or itching, lesions, wounds. CARDIOVASCULAR: No chest pain, chest pressure or chest discomfort, palpitations, edema, orthopnea, syncopal events. RESPIRATORY: + shortness of breath primarily with exertion, No cough or sputum, wheezing, hemoptysis. GASTROINTESTINAL: + anorexia, nausea, vomiting, hematemesis, bright red blood also per rectum, no marked severe abdominal pain associated and no specific melanotic stools noted. GENITOURINARY: Despite CT findings bladder, reports No dysuria, frequency, urgency or retention. NEUROLOGICAL: +headache, dizziness, No syncope, paralysis, ataxia, numbness or tingling in the extremities, focal weakness, change in bowel or bladder control, seizure. MUSCULOSKELETAL: + muscle, back pain, joint pain or stiffness. HEMATOLOGIC: + anemia, bleeding or bruising. LYMPHATICS: No enlarged nodes. No history of splenectomy. PSYCHIATRIC: No history of depression or anxiety. ENDOCRINOLOGIC: No reports of sweating, cold or heat intolerance. No polyuria or polydipsia. ALLERGIES: No history of asthma, hives, eczema or rhinitis. Vital Signs Vital Signs Vital Signs: 04/24/22 17:31 04/24/22 18:30 04/24/22 19:58 Temperature 96.1 F L Temperature Source Temporal Pulse Rate 69 117 H 126 H Respiratory Rate 18 22 H 18 Blood Pressure 135/122 H 103/43 L 109/54 L Blood Pressure Mean 126 63 72 Pulse Ox 92 97 Oxygen Delivery Method Room Air Room Air Weight Weight: 246 lb 11.156 oz Body Mass Index (BMI) 41.0 Physical Exam Narrative Physical Examination: General: Awake, alert, oriented x 3 and cooperative, seated upright in the ED bed, extremely pale appearing, remains notably tachycardic on telemetry at bedside. Skin: Notably pale color, normal turgor, no icterus, no cyanosis, bilateral lower extremity chronic venous stasis skin changes. HEENT: AT/NC, EOMI, PERRLA, dry MM, no carotid bruits or JVD noted. Lungs: Diminished, greater bases, mildly increased respiratory rate but no distress, no rales, ronchi or wheezing. Heart: Tachycardic, regular; no gallop, rub audible. Abdomen: Soft, morbidly obese, NTTP, denies sensation of distention but appears on evaluation mildly tympanitic with distention, hyperactive BS, difficult assess HSM secondary to habitus. Extremities: No cyanosis, no clubbing, bilateral lower extremity notable chronic venous stasis skin changes, pedal to distal buckner not markedly pitting edema. Neurological: Patient awake, alert, oriented as noted, cognitive function intact; pupils equally reactive to light and accommodation, cranial nerves II-XII grossly normal, moving all 4 extremities, no focal deficits, strength severely global decrease secondary to acute presentation. Psychiatric: Affect appears flat, fatigued, no acute evidence of depressive or anxiety feelings. Results Lab / Micro Data Result Diagrams: 04/24/22 22:53 04/24/22 17:48 Labs: Laboratory Results - last 24 hr 04/24/22 17:48: WBC 21.3 H, RBC 2.60 L, Hgb 8.3 L, Hct 27.8 L, MCV 106.9 H, MCH 31.9, MCHC 29.9 L, RDW Std Deviation 58.1 H, RDW Coeff of Maura 14.9 H, Plt Count 175, MPV 11.5, Immature Gran % (Auto) 1.000 H, Neut % (Auto) 78.9 H, Lymph % (Auto) 12.3 L, [place] % (Auto) 7.6, Eos % (Auto) 0.0, Baso % (Auto) 0.2, Absolute Neuts (auto) 16.8 H, Absolute Lymphs (auto) 2.63, Nucleated RBC % 0, Differential Comment SCANNED, Diff Path Review July04/24/22 17:48: PT 15.6 H, INR 1.3, APTT 27.5 04/24/22 17:48: Sodium 145, Potassium 3.8, Chloride 109 H, Carbon Dioxide 15.0 L, Anion Gap 21 H, BUN 52 H, Creatinine 2.43 H, Estim Creat Clear Calc 20.74, Est GFR (MDRD) Af Amer 33 L, Est GFR (MDRD) Non-Af 27 L, BUN/Creatinine Ratio 21.4 H, Glucose 247 H, Calcium 8.5, Total Bilirubin 0.30, AST 30, ALT 19, Alkaline Phosphatase 47, Total Protein 6.5, Albumin 3.1 L, Globulin 3.4, Albumin/Globulin Ratio 0.9 04/24/22 17:50: Blood Type O POSITIVE, Antibody Screen NEGATIVE Radiology Impression Abdomen CT 04/24/22 18:18 IMPRESSION: (NOT LISTED IN ORDER OF SIGNIFICANCE) The urinary bladder is distended. This can suggest urinary retention. Hyperdense fluid in the rectal vault may represent prior oral contrast administration. However this may also represent blood products. Other findings as above. Electronically Signed: Triston Friedman MD at 20:06 EST Reading Location ID and State: [facility] / [place] , Service support , Assessment & Plan Assessment/Plan (1) Gastrointestinal bleeding: PLAN: Plan The patient is an 81 y/o M w/ PMHx: CAD s/p PCI with Hx prior cardiac arrest, HTN, HLD, Morbid Obesity, KRISTY, GERD, Hx COVID-19, Former tobacco use who presents to the [facility] ED on 04/24/22 with history of persistent nausea and emesis with dark brown appearing emesis with additionally bright red blood per rectum and hematochezia initially thinking that potentially was secondary to hemorrhoids however persisted and then he started to have hematemesis although denies any lightheadedness or dizziness no any chest pain or palpitations or dyspnea but ongoing prompted ED evaluation. #1. Acute GI Bleed w/ resultant Acute Blood Loss Anemia with associated significant hypotensive event: Patient with hematemesis as well as hematochezia, admission hemoglobin 8.3, prior baseline noted 12-13 with most recent hemoglobin 01/07/2020 213.1 at that time, will admit to the ICU given concerns about his presentation and high risk decompensation, will continue consultation Surgery Dr. Gary gustafson [facility] and also with Dr. Peterson Seals Eng[employer]ver and planned AM GI evaluation concurrently who are currently recommending initiation of octreotide and PPI continue drips which will be started, will request 4 u PRBC to be ordered with planned 2 units start given symptomatic presentation with IV lasix in between if necessary, maintain on IVFs in interim, obtain serial H+H, NPO status. #2. Anion gap metabolic acidosis with hyperglycemia with no history of diabetes, possibly HHS versus DKA, evaluation ongoing: We will request urinalysis as well as acetone and if appropriate may require initiation of insulin drip, hemoglobin A1c requested, if consistent with DKA or HHS requiring insulin drip will continue serial BMPs, will obtain magnesium and phosphorus levels. If diagnosis of new onset diabetes will request nutrition consultation for education. #3. Acute kidney injury: Secondary to acute presentation as noted #1, #2. Admission BUN/Cr 52/2.43, prior baseline creatinine noted to be most recently prior 1.1-1.3 primarily. Will continue to hydrate, hold nephrotoxic medications and repeat chemistry in AM. Will obtain FeNa assessment and urinalysis requested as noted. If not improving low threshold to obtain nephrology consultation. #4. CAD: Status post prior PCI noted remotely 12/07/2015, will temporarily hold aspirin, Plavix as well as hypertensive regimen given BP decrease while in the ED to be cautious, continue statin therapy. #5. Hypertension: BP decreasing in the ED, to be cautious especially given acute GI bleed will hold hypertensive regimen and add back once appropriate. #6. Hyperlipidemia: We will continue patient on statin therapy. #7. KRISTY: Given nausea and emesis with hematemesis will defer usage of CPAP for safety. #8. GERD: We will maintain on IV PPI drip as noted above #9. BPH: Per current regimen not on any medication, distended bladder noted on CT scan but patient currently asymptomatic, will straight cath as needed and place Dalal catheter if recurrent need. If necessary may also add Flomax however cautiously given #1 with low blood pressures and already dizzy/lightheadedness present. #10. Former tobacco usage: Encourage continued tobacco cessation. #11. DVT prophylaxis: SCDs, defer chemoprophylaxis given acute GI bleed presentation. #12. CODE status: Patient does not have healthcare power of health care attorney nor living will in place. Given patient's significant underlying history and acute presentation, discussed CODE status at length including difference between FULL code, DNR-CCA and DNR-CC status. Following discussions about the differences in these status, requested Full Code status. He notes being amenable to PRBC administration and endoscopies. Advanced Care Planning Face to Face Time: 18 minutes. Admission Evaluation Time spent evaluating chart, patient history, patient evaluation, care planning and discussion with specialists: 78 minutes. Charges/Coding Visit Charges Inpatient E&M: 09393 Init Hosp L3 Procedures Hospitalists Procedures: [id number] Advncd Care Plan 30 Min
[2022-04-25] VITALS (33 sets, daily range): BP systolic 87–142; BP diastolic 33–116; PULSE 102–133; RESP 18–36; TEMP 36.4–38.6; O2SAT 88–100
--- NOTE | 2022-04-25 00:24 | EKG12_ITS ---
Test Reason : Blood Pressure : / mmHG Vent. Rate : 116 BPM Atrial Rate : 116 BPM P-R Int : 232 ms QRS Dur : 076 ms QT Int : 312 ms P-R-T Axes : 061 004 012 degrees QTc Int : 433 ms Sinus tachycardia with 1st degree A-V block Inferior infarct (cited on or before 06-DEC-2015) Anterior infarct , age undetermined Abnormal ECG When compared with ECG of 06-DEC-2015 19:00, No significant change was found Confirmed by ALBAN MOTA, CODY ([id number]), advertising editor FREDERICK QUINTANILLA ([id number]) on 04/28/2022 9:12:48 AM Referred By: SHERITA FISCHER Confirmed By:JOANNA PHOENIX MD
[2022-04-25] MEDS: Ondansetron 4 MG/2 ML Vial IV (05:14)
[2022-04-25] MEDS: 0.9% Saline Lock 10 ML Syringe IV ×4 (05:14→20:34)
[2022-04-25 05:25] LABS: Hematocrit 24.6 % (40-54)
[2022-04-25 06:00] LABS: AST(SGOT) 37 U/L (15-37); Alanine Aminotransfer ALT/SGPT 18 U/L (16-61); Albumin, Serum 2.8 g/dL (3.2-5.0); Alkaline Phosphatase 37 U/L (45-117); Anion Gap 13 (5-15); BUN 65 mg/dL (7-18); BUN/Creat Ratio 31.6 RATIO (10-20); Calcium,Total 8.1 mg/dL (8.5-10.1); Chloride 110 mmol/L (98-107); Creatinine, Serum 2.06 mg/dL (0.70-1.30); EST Glomerular Filtration Rate 33 mL/min (>60); Est Glom Filt Rate - Afr Amer 40 mL/min (>60); Estimated Creatinine Clearance 25.38 ml/min; Globulin 2.8 g/dL (2.2-4.2); Glucose 193 mg/dL (74-106); Potassium 4.5 mmol/L (3.5-5.1); Protein, Total 5.6 g/dL (6.4-8.2); Sodium Level 144 mmol/L (136-145)
[2022-04-25] MEDS: fentaNYL 100 MCG/2 ML Ampul 25 MCG IV ×3 (06:32→20:34)
[2022-04-25 06:48] LABS: Magnesium 2.1 mg/dL (1.6-2.6); Phosphorus 3.4 mg/dL (2.5-4.9)
--- NOTE | 2022-04-25 06:55 | NURSING ---
Dr. Vega at bedside for central line placement.
--- NOTE | 2022-04-25 07:20 | RAD_ITS ---
INDICATION: line placement EXAMINATION/TECHNIQUE: X-RAY - AP view of chest COMPARISON: Chest x-ray from 12/06/2015 FINDINGS: LINES/DEVICES: Right jugular central line tip at lower SVC. LUNGS: No overt pulmonary edema or focal airspace consolidation. No sizable pleural effusion. No detectable pneumothorax. MEDIASTINUM AND CARDIOVASCULAR STRUCTURES: Heart size within normal limits for imaging technique. Atherosclerotic calcifications along aorta. BONES AND SOFT TISSUES: Skeletal degenerative changes. RAD/CXR for Line Placement IMPRESSION: No radiographic evidence of acute cardiopulmonary disease. Electronically Signed: Brandon Roland MD at 7:47 EST ,
--- NOTE | 2022-04-25 07:30 | EX.PCM.CON.S ---
Assessment & Plan Assessment/Plan (1) Gastrointestinal bleeding: (2) Need for intravenous access: (3) Anemia: PLAN: Plan Will place triple lumen central line as Dr. Major is preparing to do an upper possible lower colonoscopy in ICU. HPI Consult Data Date of Consult: 04/26/22 HPI Narrative HPI Narrative: SOULEYMANE DUGGAN, is a 81 M who presents to ER due to coffee ground emesis and blood per rectum--brbpr has been going on at home for a couple of days prior to coming in. Pt was hypotensive in ER but responded to IVF. Currently pt is still having blood per rectum and hypotensive in ICU- on second unit PRBC. [facility] [place] Medical History Atherosclerosis of [place] coronary artery of [place] heart without angina pectoris BPH (benign prostatic hyperplasia) Cardiac arrest (11/2015) COVID-19 virus detected (03/21/21) Essential (primary) hypertension GERD (gastroesophageal reflux disease) Hyperlipidemia Obesity Obstructive sleep apnea Syncope and collapse Home Medications aspirin 81 mg tablet,delayed release (Adult Aspirin Regimen) 81 mg PO QDAY 03/22/17 [History Last Taken Unknown] atenolol 50 mg tablet 50 mg PO BID #180 tabs 05/03/18 [Rx Last Taken Unknown] losartan 100 mg tablet 100 mg PO DAILY #90 tabs 05/03/18 [Rx Last Taken Unknown] omega-3 fatty acids 1,000 mg capsule (Fish Oil Concentrate) 1,000 mg PO DAILY 09/30/20 [History Last Taken Unknown] furosemide 40 mg tablet (Lasix) 40 mg PO DAILY #90 tabs 06/07/21 [Rx Last Taken Unknown] nitroglycerin 0.4 mg sublingual tablet 0.4 mg sublingual Q5-15M PRN chest pain #25 tabs 06/07/21 [Rx Last Taken Unknown] atorvastatin 80 mg tablet 80 mg PO QDAY #90 tabs 07/05/21 [Rx Last Taken Unknown] cinnamon bark 500 mg capsule (Cinnamon) 500 mg PO DAILY 12/08/21 [History Last Taken Unknown] clopidogrel 75 mg tablet (Plavix) 75 mg PO QDAY #90 tabs 12/08/21 [Rx Last Taken Unknown] niacin 500 mg tablet 500 mg PO DAILY 12/08/21 [History Last Taken Unknown] Allergy/AdvReac Type Severity Reaction Status Date / Time No Known Allergies Allergy Verified 12/08/21 13:44 Family History Father CAD (coronary artery disease) Heart disease Hypertension Myocardial infarction Brother CAD (coronary artery disease) Heart disease Hypertension Myocardial infarction Mother CAD (coronary artery disease) Heart disease Hypertension Myocardial infarction Other Diabetes Surgical History History of coronary artery stent placement (12/07/15) History of hemorrhoidectomy (1972) History of right hip replacement (09/2013) Social History household members: spouse Smoking Status: Former smoker how long ago did patient quit smoking: Quit in his 30s, smoked since teen (~ 15-20 years), < 1 ppd day. alcohol intake: former substance use type: does not use caffeine: Yes Type: tea Number of servings: 2 Physical Exam Const alert Resp normal respiratory effort Cardio Rate: regular rate GI soft to palpation Inspection: Negative for abdominal distention Skin No no rashes or lesions noted Neuro CN's II-XII intact bilaterally Psych affect normal Lab / Micro Data Result Diagrams: 04/26/22 08:55 04/26/22 03:05 Labs: Laboratory Results - last 24 hr 04/24/22 17:48: WBC 21.3 H, RBC 2.60 L, Hgb 8.3 L, Hct 27.8 L, MCV 106.9 H, MCH 31.9, MCHC 29.9 L, RDW Std Deviation 58.1 H, RDW Coeff of Maura 14.9 H, Plt Count 175, MPV 11.5, Immature Gran % (Auto) 1.000 H, Neut % (Auto) 78.9 H, Lymph % (Auto) 12.3 L, [place] % (Auto) 7.6, Eos % (Auto) 0.0, Baso % (Auto) 0.2, Absolute Neuts (auto) 16.8 H, Absolute Lymphs (auto) 2.63, Nucleated RBC % 0, Differential Comment SCANNED, Diff Path Review July04/24/22 17:48: PT 15.6 H, INR 1.3, APTT 27.5 04/24/22 17:48: Sodium 145, Potassium 3.8, Chloride 109 H, Carbon Dioxide 15.0 L, Anion Gap 21 H, BUN 52 H, Creatinine 2.43 H, Estim Creat Clear Calc 20.74, Est GFR (MDRD) Af Amer 33 L, Est GFR (MDRD) Non-Af 27 L, BUN/Creatinine Ratio 21.4 H, Glucose 247 H, Calcium 8.5, Total Bilirubin 0.30, AST 30, ALT 19, Alkaline Phosphatase 47, Total Protein 6.5, Albumin 3.1 L, Globulin 3.4, Albumin/Globulin Ratio 0.9 04/24/22 17:48: Phosphorus 4.8, Magnesium 2.2 04/24/22 17:50: Blood Type O POSITIVE, Antibody Screen NEGATIVE 04/24/22 17:50: Crossmatch See Detail 04/24/22 22:00: Acetone Level NEGATIVE 04/24/22 22:00: Urine Color Yellow, Urine Clarity Sl. Cloudy, Urine pH 5.0, Ur Specific [place] 1.025, Urine Protein 30 H, Urine Glucose (UA) Normal, Urine Ketones 5 H, Urine Occult Blood 10 H, Urine Nitrite Negative, Urine Bilirubin Negative, Urine Urobilinogen Normal, Ur Leukocyte Esterase Negative, Urine RBC 0 SEEN, Urine WBC 0-5 SEEN, Ur Squamous Epith Cells 0 SEEN, Urine Bacteria RARE, Hyaline Casts 5-10 SEEN, Urine Mucus 0 SEEN 04/24/22 22:53: Hgb 7.6 L, Hct 23.7 L 04/25/22 05:08: Hgb 8.0 L, Hct 24.6 L 04/25/22 05:08: Sodium 144, Potassium 4.5, Chloride 110 H, Carbon Dioxide 21.0, Anion Gap 13, BUN 65 H, Creatinine 2.06 H, Estim Creat Clear Calc 25.38, Est GFR (MDRD) Af Amer 40 L, Est GFR (MDRD) Non-Af 33 L, BUN/Creatinine Ratio 31.6 H, Glucose 193 H, Calcium 8.1 L, Total Bilirubin 0.70, AST 37, ALT 18, Alkaline Phosphatase 37 L, Total Protein 5.6 L, Albumin 2.8 L, Globulin 2.8, Albumin/Globulin Ratio 1.0 04/25/22 05:08: Phosphorus 3.4, Magnesium 2.[address] 04/24/22 18:18 IMPRESSION: (NOT LISTED IN ORDER OF SIGNIFICANCE) The urinary bladder is distended. This can suggest urinary retention. Hyperdense fluid in the rectal vault may represent prior oral contrast administration. However this may also represent blood products. Other findings as above. Electronically Signed: Triston Friedman MD at 20:06 EST Reading Location ID and State: [facility] / [place] , Service support , Charges/Coding Visit Charges Inpatient E&M: 09896 Init Hosp L3
[2022-04-25] MEDS: Etomidate 20 MG/10 ML Vial 32 MG IV (07:32)
[2022-04-25] MEDS: Epinephrine (1 mg/ml) 1 MG/ML VIAL (07:33)
--- NOTE | 2022-04-25 07:34 | PCM.OPRPT ---
Report of Operation Date of Procedure: 04/25/22 Pre-Operative Diagnosis: Need for IV access, hypotension, GI bleed Post-Operative Diagnosis: same Surgery/Procedure Performed:: Placement of Right IJ triple lumen catheter Surgeon: Sonia Vega Type of Anesthesia: Local Description of Procedure: In procedure: A time-out was completed to verify correct patient, indication procedure, and equipment needed. The patient was placed in the supine position for a central line placement to the right IJ vein. The patients right neck was prepped using chlorhexidine and a full body sterile drape was applied. 1% lidocaine was used to anesthetize the surrounding skin. US was used to get access to right internal jugular. A Triple lumen catheter was introduced into the internal jugular vein using the modified Seldinger technique with the assistance of ultrasound. The site was dilated. The catheter was threaded smoothly over the guidewire, the guidewire was removed easily, nonpulsatile blood returned. All ports were aspirated of air and flushed with sterile saline. The catheter was sutured in place and biopatch and OpSite were placed. Pt tolerated procedure well and x-ray was ordered. catheter was in proper position, no PTX. Grafts/Implants Used: ARROW triple lumen LOT: [id number] REF: [id number] Complications none
[2022-04-25 07:52] LABS: Hemoglobin A1c 5.6 % (3.8-5.6)
--- NOTE | 2022-04-25 08:34 | OP.CCLET_ITS ---
04/25/2022 Rajesh Caal Re : Upper GI endoscopy procedure for Lisandro Joyce Richar Ten This procedure was performed on Monday, April 25, 2022. My impressions and recommendations are as follows: Impressions : - No gross lesions in esophagus. - Red blood in the gastric body, in the anterior wall of the stomach and in the greater curvature of the stomach. - One spurting duodenal ulcer with a visible vessel. Injected. Treated with a heater probe. - No specimens collected. Recommendations : - Return patient to ICU for ongoing care. - NPO. - Continue present medications. My findings are described in the full procedure note, which is enclosed. If I can be of further assistance, please feel free to contact me at . Sincerely, Bernardo Major, 04/25/2022 8:34:09 AM This report has been signed electronically.
--- NOTE | 2022-04-25 08:34 | OP.EGD_ITS ---
Patient Name: Lisandro Joyce Procedure Date: 04/25/2022 7:22 AM Date of : 1940 Age: 81 Procedure: Upper GI endoscopy Indications: Hematemesis Providers: Bernardo Major DO Patient Profile: This is an 81 year old male. Refer to note in patient chart for documentation of history and physical. Patient has symptoms of acute vomiting. Complications: No immediate complications. Procedure: Pre-Anesthesia Assessment: - Prior to the procedure, a History and Physical was performed, and patient medications and allergies were reviewed. The patient is competent. The risks and benefits of the procedure and the sedation options and risks were discussed with the patient. All questions were answered and informed consent was obtained. Patient identification and proposed procedure were verified by the physician in the pre-procedure area. Mental Status Examination: alert and oriented. Airway Examination: normal oropharyngeal airway and neck mobility. Respiratory Examination: clear to auscultation. CV Examination: normal. Prophylactic Antibiotics: The patient does not require prophylactic antibiotics. Prior Anticoagulants: The patient has taken no previous anticoagulant or antiplatelet agents. ASA Grade Assessment: II - A patient with mild systemic disease. After reviewing the risks and benefits, the patient was deemed in satisfactory condition to undergo the procedure. The anesthesia plan was to use moderate sedation / analgesia (conscious sedation). Immediately prior to administration of medications, the patient was re-assessed for adequacy to receive sedatives. The heart rate, respiratory rate, oxygen saturations, blood pressure, adequacy of pulmonary ventilation, and response to care were monitored throughout the procedure. The physical status of the patient was re-assessed after the procedure. After obtaining informed consent, the endoscope was passed under direct vision. Throughout the procedure, the patient's blood pressure, pulse, and oxygen saturations were monitored continuously. The gastroscope was introduced through the mouth, and advanced to the second part of duodenum. The upper GI endoscopy was accomplished without difficulty. The patient tolerated the procedure well. Scope In: 7:33:09 AM Scope Out: 8:10:25 AM Total Procedure Duration Time 0 hours 37 minutes 16 seconds Findings: No gross lesions were noted in the entire esophagus. Red blood was found in the gastric body, on the anterior wall of the stomach and on the greater curvature of the stomach. One spurting cratered duodenal ulcer with a visible vessel was found in the first portion of the duodenum. The lesion was 6 mm in largest dimension. Area was successfully injected with 5 mL of a 1:10,000 solution of epinephrine for drug delivery. Coagulation for hemostasis using heater probe was successful. Impression: - No gross lesions in esophagus. - Red blood in the gastric body, in the anterior wall of the stomach and in the greater curvature of the stomach. - One spurting duodenal ulcer with a visible vessel. Injected. Treated with a heater probe. - No specimens collected. Recommendation: - Return patient to ICU for ongoing care. - NPO. - Continue present medications. Procedure Code(s): --- Professional --- 39547, Esophagogastroduodenoscopy, flexible, transoral; with control of bleeding, any method 33877, 59, Esophagogastroduodenoscopy, flexible, transoral; with directed submucosal injection(s), any substance CPT copyright 2017 [employer]. All rights reserved. The codes documented in this report are preliminary and upon top collar baster review may be revised to meet current compliance requirements. Bernardo Major DO 04/25/2022 8:34:09 AM This report has been signed electronically. Number of Addenda: 0 Note Initiated On: 04/25/2022 7:22 AM
--- NOTE | 2022-04-25 08:41 | CON.PCM.CC_ITS ---
Assessment & Plan Assessment/Plan (1) Gastrointestinal bleeding: (2) Anemia: (3) Acute kidney injury: PLAN: Plan RECOMMENDATIONS: 1. N.p.o. given GI procedure for 24 hours 2. Obtain H&H every 6 for 24 hours 3. Continue Protonix. Check with GI on octreotide 4. Possible dosing with Lasix pending respiratory status 5. Wean supplemental oxygen as tolerated IMPRESSIONS: 1. Hemorrhagic shock secondary to acute blood loss anemia secondary to an acute upper GI bleed with hypotension Endorgan damage demonstrated by problem #2. Patient with a hemoglobin of 8 and is not responding appropriately to transfusions. We will continue to monitor H&H's every 6 for 24 hours. Patient has had definitive therapy by GI. Patient appeared to tolerate conscious sedation well. We will continue to transfuse as necessary, but may need to start pressors if patient starts to develop respiratory complications. 2. Acute kidney injury secondary to problem #1 Patient's baseline creatinine appears to be approximately 1.1-1.3. Patient presented with a creatinine of 2.4. Patient has received aggressive fluid resuscitation and blood products. We will continue to monitor. There is no indication for renal replacement therapy at this time. We will hold on a nephrology consult and monitor for response to therapy. 3. Acute anion gap metabolic acidosis Unclear etiology at this time. Patient does appear to be responding well to resuscitation efforts. Bicarbonate is back to normal. Some concern for a nonanion gap metabolic acidosis given GI losses. No bicarbonate drip at this time. We will continue to monitor closely. Gap is currently closed. 4. CAD/hypertension/KRISTY/hyperlipidemia/GERD/advanced age/BPH Complicates care, management, recovery and prognosis. Patient is reportedly a full code, but this cannot be verified independently. Patient is on Plavix at baseline, likely complicating problem #1. Patient is receiving a Protonix drip secondary to problem #1. Patient has a Dalal in place, so BPH should not be an issue. Some concern for congestive heart failure, likely diastolic. May need to dose with Lasix given the amount of blood and fluids the patient has received. TIME: 80 minutes of critical care time spent addressing patient's acute blood loss anemia, hemorrhagic shock, acute kidney injury, review of all data and collaboration with care team HPI Consult Data Date of Consult: 04/25/22 HPI Narrative Reason for Consultation: GI bleed HPI Narrative: SOULEYMANE DUGGAN is a 81 M, with past medical history listed below, who presents to [facility] on 04/24/2022 secondary to nausea, vomiting and hematochezia. Patient reportedly had some dark brown emesis and passed bright red blood per rectum. Patient does have a history of hemorrhoids and initially thought this was due to the hemorrhoids. Patient denied any chest pain, lightheadedness, dizziness or palpitations. Patient did not have any shortness of breath or cough. Patient had initially denied any abdominal pain, but then started to have some lower abdominal pain. Patient did not have any urinary complaints. Patient does have a history of CHF and is on Lasix, aspirin and Plavix at baseline. No other anticoagulation is reported. In the ER, patient was afebrile, normotensive, but tachycardic at 126 bpm. P atient was requiring 3 L nasal cannula to maintain saturations. Laboratory work-up showed a white blood cell count of 21.3, hemoglobin of 8.3 and a platelet count of 175. Coagulation studies were within normal limits. Chemistry showed an elevated BUN of 52 and a creatinine of 2.4. Patient also h ad a decreased bicarbonate of 15 and relatively normal LFTs. CT of the abdomen showed a distended bladder with possible blood in the rectum. There was no perforation or free air noted. Surgery was consulted overnight and stated they could come in for an emergent evaluation. Patient had 4 units of blood ordered, but only 2 were given. Patient was admitted to the intensive care unit for further evaluation. On my evaluation this morning, patient was hypotensive and appeared pale. Patient continued to have frequent bloody bowel movements. Surgery and GI were called. Patient ended up having an emergent EGD by Dr. Major. I did provide conscious sedation to help stabilize the patient. Patient maintained blood pressures throughout the procedure. The patient was unable to provide any a dditional history or review of systems secondary to acute status. [facility] Medical History Atherosclerosis of [place] coronary artery of [place] heart without angina pectoris BPH (benign prostatic hyperplasia) Cardiac arrest (11/2015) COVID-19 virus detected (03/21/21) Essential (primary) hypertension GERD (gastroesophageal reflux disease) Hyperlipidemia Obesity Obstructive sleep apnea Syncope and collapse Home Medications aspirin 81 mg tablet,delayed release (Adult Aspirin Regimen) 81 mg PO QDAY 03/22/17 [History Last Taken Unknown] atenolol 50 mg tablet 50 mg PO BID #180 tabs 05/03/18 [Rx Last Taken Unknown] losartan 100 mg tablet 100 mg PO DAILY #90 tabs 05/03/18 [Rx Last Taken Unknown] omega-3 fatty acids 1,000 mg capsule (Fish Oil Concentrate) 1,000 mg PO DAILY 09/30/20 [History Last Taken Unknown] furosemide 40 mg tablet (Lasix) 40 mg PO DAILY #90 tabs 06/07/21 [Rx Last Taken Unknown] nitroglycerin 0.4 mg sublingual tablet 0.4 mg sublingual Q5-15M PRN chest pain #25 tabs 06/07/21 [Rx Last Taken Unknown] atorvastatin 80 mg tablet 80 mg PO QDAY #90 tabs 07/05/21 [Rx Last Taken Unknown] cinnamon bark 500 mg capsule (Cinnamon) 500 mg PO DAILY 12/08/21 [History Last Taken Unknown] clopidogrel 75 mg tablet (Plavix) 75 mg PO QDAY #90 tabs 12/08/21 [Rx Last Taken Unknown] niacin 500 mg tablet 500 mg PO DAILY 12/08/21 [History Last Taken Unknown] Allergy/AdvReac Type Severity Reaction Status Date / Time No Known Allergies Allergy Verified 12/08/21 13:44 Family History Father CAD (coronary artery disease) Heart disease Hypertension Myocardial infarction Brother CAD (coronary artery disease) Heart disease Hypertension Myocardial infarction Mother CAD (coronary artery disease) Heart disease Hypertension Myocardial infarction Other Diabetes Surgical History History of coronary artery stent placement (12/07/15) History of hemorrhoidectomy (1972) History of right hip replacement (09/2013) Social History household members: spouse Smoking Status: Former smoker how long ago did patient quit smoking: Quit in his 30s, smoked since teen (~ 15-20 years), < 1 ppd day. alcohol intake: former substance use type: does not use caffeine: Yes Type: tea Number of servings: 2 ROS ROS Narrative Unable to obtain secondary to acute medical status Physical Exam Narrative Given patient's acute condition, EGD was done in an emergent fashion. Patient did have an emergent central line placed by surgery to allow for this to take place. Upon placement of the bite-block, patient did have hematemesis without obvious aspiration or hypoxia. At 7:32 AM, timeout procedure was obtained. Patient was given 4 mg of etomidate and EGD was undertaken. Please see Dr. Major's note for further details. In total, the patient received 32 mg of etomidate, with the last dose at 8:08 AM and was monitored until 8:30 AM. Const alert Constitutional Narrative: Obese. Complaining of lower abdominal pain and nausea. Appeared pale. General Appearance: well developed HEENT normocephalic and head/scalp atraumatic HEENT Narrative: Pale, dry mucous membranes. No upper dentures noted. Eyes PERRL, EOMs intact bilaterally and conjunctivae normal Neck full ROM Lymph Lymphatic: no lymphadenopathy noted Resp normal respiratory effort Auscultation: Negative for rales, rhonchi or wheezes Cardio S1 normal heart sound, S2 normal heart sound, no murmurs, no rub and no gallops Cardio Narrative: Sinus tachycardia noted on telemetry Rate: tachycardic GI soft to palpation Inspection: Negative for abdominal distention Palpation: tender suprapubic Back/Spine no CVA tenderness Extremity General Extremity: edema; Negative for clubbing Skin No no rashes or lesions noted Neuro CN's II-XII intact bilaterally, moves all extremities and no focal motor deficits Psych Mood & Affect: anxious Lab / Micro Data Attestation: I reviewed the patient's lab results. Result Diagrams: 04/25/22 05:08 04/25/22 05:08 Labs: Laboratory Results - last 24 hr 04/24/22 17:48: WBC 21.3 H, RBC 2.60 L, Hgb 8.3 L, Hct 27.8 L, MCV 106.9 H, MCH 31.9, MCHC 29.9 L, RDW Std Deviation 58.1 H, RDW Coeff of Maura 14.9 H, Plt Count 175, MPV 11.5, Immature Gran % (Auto) 1.000 H, Neut % (Auto) 78.9 H, Lymph % (Auto) 12.3 L, [place] % (Auto) 7.6, Eos % (Auto) 0.0, Baso % (Auto) 0.2, Absolute Neuts (auto) 16.8 H, Absolute Lymphs (auto) 2.63, Nucleated RBC % 0, Differential Comment SCANNED, Diff Path Review July04/24/22 17:48: PT 15.6 H, INR 1.3, APTT 27.5 04/24/22 17:48: Sodium 145, Potassium 3.8, Chloride 109 H, Carbon Dioxide 15.0 L , Anion Gap 21 H, BUN 52 H, Creatinine 2.43 H, Estim Creat Clear Calc 20.74, Est GFR (MDRD) Af Amer 33 L, Est GFR (MDRD) Non-Af 27 L, BUN/Creatinine Ratio 21.4 H , Glucose 247 H, Calcium 8.5, Total Bilirubin 0.30, AST 30, ALT 19, Alkaline Phosphatase 47, Total Protein 6.5, Albumin 3.1 L, Globulin 3.4, Albumin/Globulin Ratio 0.9 04/24/22 17:48: Phosphorus 4.8, Magnesium 2.2 04/24/22 17:50: Blood Type O POSITIVE, Antibody Screen NEGATIVE 04/24/22 17:50: Crossmatch See Detail 04/24/22 22:00: Acetone Level NEGATIVE 04/24/22 22:00: Urine Color Yellow, Urine Clarity Sl. Cloudy, Urine pH 5.0, Ur Specific [place] 1.025, Urine Protein 30 H, Urine Glucose (UA) Normal, Urine Ketones 5 H, Urine Occult Blood 10 H, Urine Nitrite Negative, Urine Bilirubin Negative, Urine Urobilinogen Normal, Ur Leukocyte Esterase Negative, Urine RBC 0 SEEN, Urine WBC 0-5 SEEN, Ur Squamous Epith Cells 0 SEEN, Urine Bacteria RARE, Hyaline Casts 5-10 SEEN, Urine Mucus 0 SEEN 04/24/22 22:53: Hgb 7.6 L, Hct 23.7 L 04/25/22 05:08: Hgb 8.0 L, Hct 24.6 L 04/25/22 05:08: Sodium 144, Potassium 4.5, Chloride 110 H, Carbon Dioxide 21.0, Anion Gap 13, BUN 65 H, Creatinine 2.06 H, Estim Creat Clear Calc 25.38, Est GFR (MDRD) Af Amer 40 L, Est GFR (MDRD) Non-Af 33 L, BUN/Creatinine Ratio 31.6 H, Glucose 193 H, Calcium 8.1 L, Total Bilirubin 0.70, AST 37, ALT 18, Alkaline Phosphatase 37 L, Total Protein 5.6 L, Albumin 2.8 L, Globulin 2.8, Albumin/Globulin Ratio 1.0 04/25/22 05:08: Hemoglobin A1c 5.6 04/25/22 05:08: Phosphorus 3.4, Magnesium 2.[address] 04/24/22 18:18 IMPRESSION: (NOT LISTED IN ORDER OF SIGNIFICANCE) The urinary bladder is distended. This can suggest urinary retention. Hyperdense fluid in the rectal vault may represent prior oral contrast administration. However this may also represent blood products. Other findings as above. Electronically Signed: Triston Friedman MD at 20:06 EST , Chest X-Ray 04/25/22 07:20 IMPRESSION: No radiographic evidence of acute cardiopulmonary disease. Electronically Signed: Brandon Roland MD at 7:47 EST , Charges/Coding Procedures Hospitalists Procedures: 82000 Critial Care 1st Hr Multi Select Codes Hospitalists' Procedures Procedures: 89249 Critial Care Addl 30 Min
[2022-04-25 10:18] LABS: Hematocrit 33.3 % (40-54); Hemoglobin 10.7 g/dL (13.0-16.5)
--- NOTE | 2022-04-25 11:15 | CASEMGMT ---
RN CM SHEET TESTER CM to room to meet with patient for initial transition planning/care coordination assessment. RN RODRÍGUEZ introduced self and role at [facility]. Pt voices understanding and consents to assessment at this time. Pt resting in bed in no distress at this time. Pt is A/O at this time and answers all questions appropriately. Care providers, pharmacy, and demographics verified/updated at this time. 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 LNOK: , Nilsa. 2 adult children Living Arrangements: Lives w/his and oldest son in one-story home w/basement and 3 steps to enter home. He states no difficulty w/stairs to enter home. He does not go to the basement. He states he is independent w/ADL's and manages his own medications. does home mgmt tasks. Transportation: Pt states he can drive, but does most of the driving. DME: Has/uses a cane. Has a walker available, but does not use. No home O2. HHC/SNF: No hx of either. Has went to [facility] for OP therapy. Pt does not feel he will need any HHC or OP therapy @ discharge. Currently he is on CBR. PT/OT evals pending. Pt wishes to return home and states has no concerns with going home at time of discharge. CM to follow for home oxygen needs and any further discharge planning/needs. Pt voices no further concerns/needs at this time. Advised pt to ask for CM if any further questions/concerns/needs arise. Voices understanding. PLAN: Home. PT/OT evals pending. CM to follow. Erin VALDEZ RN, CM
[2022-04-25 12:32] LABS: Pathologist Review Reviewed
--- NOTE | 2022-04-25 15:39 | PCM.PN.HOSP ---
Subjective Subjective And examined today, he underwent an EGD and had placement of a central line. Patient had a bleeding duodenal ulceration, at the time of my examination, patient appears stable. I talked briefly with critical care about his care. Objective Data Objective Data Vital Signs: Vital Signs Temp Pulse Resp BP Pulse Ox O2 Del Method O2 Flow Rate 99.0 F 125 H 24 H 114/80 98 Nasal Cannula 2 04/25/22 12:00 04/25/22 14:00 04/25/22 14:00 04/25/22 14:00 04/25/22 14:00 04/25/22 14:00 04/25/22 14:00 Oxygen Flow Rate (L/min) 2 Oxygen Delivery Method Nasal Cannula Weight: 110.6 kg Body Mass Index (BMI) 38.9 Intake & Output: Intake and Output for Last 24 Hours 04/23/22 04/24/22 04/25/22 23:59 23:59 23:59 Intake Total 1000 / 1000 1505.00 / 1505.00 Output Total 610 / 610 Balance 1000 / 1000 895.00 / 895.00 Lab / Micro Data Result Diagrams: 04/25/22 10:00 04/25/22 05:08 Labs: Laboratory Results - last 24 hr 04/24/22 17:48: WBC 21.3 H, RBC 2.60 L, Hgb 8.3 L, Hct 27.8 L, MCV 106.9 H, MCH 31.9, MCHC 29.9 L, RDW Std Deviation 58.1 H, RDW Coeff of Maura 14.9 H, Plt Count 175, MPV 11.5, Immature Gran % (Auto) 1.000 H, Neut % (Auto) 78.9 H, Lymph % (Auto) 12.3 L, [place] % (Auto) 7.6, Eos % (Auto) 0.0, Baso % (Auto) 0.2, Absolute Neuts (auto) 16.8 H, Absolute Lymphs (auto) 2.63, Nucleated RBC % 0, Differential Comment SCANNED, Diff Path Review Reviewed 04/24/22 17:48: PT 15.6 H, INR 1.3, APTT 27.5 04/24/22 17:48: Sodium 145, Potassium 3.8, Chloride 109 H, Carbon Dioxide 15.0 L, Anion Gap 21 H, BUN 52 H, Creatinine 2.43 H, Estim Creat Clear Calc 20.74, Est GFR (MDRD) Af Amer 33 L, Est GFR (MDRD) Non-Af 27 L, BUN/Creatinine Ratio 21.4 H, Glucose 247 H, Calcium 8.5, Total Bilirubin 0.30, AST 30, ALT 19, Alkaline Phosphatase 47, Total Protein 6.5, Albumin 3.1 L, Globulin 3.4, Albumin/Globulin Ratio 0.9 04/24/22 17:48: Phosphorus 4.8, Magnesium 2.2 04/24/22 17:50: Blood Type O POSITIVE, Antibody Screen NEGATIVE 04/24/22 17:50: Crossmatch See Detail 04/24/22 22:00: Acetone Level NEGATIVE 04/24/22 22:00: Urine Color Yellow, Urine Clarity Sl. Cloudy, Urine pH 5.0, Ur Specific [place] 1.025, Urine Protein 30 H, Urine Glucose (UA) Normal, Urine Ketones 5 H, Urine Occult Blood 10 H, Urine Nitrite Negative, Urine Bilirubin Negative, Urine Urobilinogen Normal, Ur Leukocyte Esterase Negative, Urine RBC 0 SEEN, Urine WBC 0-5 SEEN, Ur Squamous Epith Cells 0 SEEN, Urine Bacteria RARE, Hyaline Casts 5-10 SEEN, Urine Mucus 0 SEEN 04/24/22 22:53: Hgb 7.6 L, Hct 23.7 L 04/25/22 05:08: Hgb 8.0 L, Hct 24.6 L 04/25/22 05:08: Sodium 144, Potassium 4.5, Chloride 110 H, Carbon Dioxide 21.0, Anion Gap 13, BUN 65 H, Creatinine 2.06 H, Estim Creat Clear Calc 25.38, Est GFR (MDRD) Af Amer 40 L, Est GFR (MDRD) Non-Af 33 L, BUN/Creatinine Ratio 31.6 H, Glucose 193 H, Calcium 8.1 L, Total Bilirubin 0.70, AST 37, ALT 18, Alkaline Phosphatase 37 L, Total Protein 5.6 L, Albumin 2.8 L, Globulin 2.8, Albumin/Globulin Ratio 1.0 04/25/22 05:08: Hemoglobin A1c 5.6 04/25/22 05:08: Phosphorus 3.4, Magnesium 2.1 04/25/22 10:00: Hgb 10.7 L, Hct 33.3 L Radiography Diagnostic Testing: Radiology Impression Abdomen CT 04/24/22 18:18 IMPRESSION: (NOT LISTED IN ORDER OF SIGNIFICANCE) The urinary bladder is distended. This can suggest urinary retention. Hyperdense fluid in the rectal vault may represent prior oral contrast administration. However this may also represent blood products. Other findings as above. Electronically Signed: Triston Friedman MD at 20:06 EST , Chest X-Ray 04/25/22 07:20 IMPRESSION: No radiographic evidence of acute cardiopulmonary disease. Electronically Signed: Brandon Roland MD at 7:47 EST , Physical Exam Const alert, oriented x3, no apparent distress and average body habitus General Appearance: cooperative, well kempt and well developed Orientation / Consciousness: awake, oriented to person, oriented to place and oriented to time HEENT normocephalic, head/scalp atraumatic and moist oral mucous membranes Eyes PERRL, EOMs intact bilaterally and conjunctivae normal Neck supple, no JVD, thyroid normal and no carotid bruits General: trachea midline Resp normal respiratory effort, no retractions, no use of accessory muscles and clear to auscultation bilaterally Auscultation: Negative for rales, rhonchi or wheezes Cardio regular rate, regular rhythm, S1 normal heart sound, S2 normal heart sound, no murmurs, no rub and no gallops GI normal to inspection, nondistended, normoactive bowel sounds, soft to palpation, non-tender and non-distended Extremity no clubbing, cyanosis or edema Skin no rashes or lesions noted General Skin Exam: no breakdown Neuro oriented x3, CN's II-XII intact bilaterally, moves all extremities, no focal motor deficits and no sensory deficits noted Sensorium / Orientation: awake, alert, oriented to person, oriented to place and oriented to time Speech: speech normal Psych affect normal Assessment & Plan Assessment/Plan (1) Gastrointestinal bleeding: PLAN: Plan 1. Acute upper gastrointestinal hemorrhage secondary to bleeding duodenal ulcer-continue IV PPI, gastroenterology is participating in his care #2 acute blood loss anemia secondary to acute duodenal hemorrhage from ulcer-requiring transfusion, patient will get a total of 4 units of packed red blood cells #3 atherosclerotic heart disease-stable at this time, patient's Plavix and aspirin will be held at this time due to upper GI bleed #4 essential hypertension-patient's blood pressure medications are being held at this time #5 hyperlipidemia-patient is on Lipitor Total clinical time spent by myself addressing the patient's medical problems, reviewing all the data, and collaborating with patient's care team: 35 minutes Charges/Coding Visit Charges Inpatient E&M: 99599 Subs Hosp L2
[2022-04-25] MEDS: oxyCODONE 5 MG Tablet PO (16:07)
[2022-04-25 16:34] LABS: Hematocrit 30.4 % (40-54); Hemoglobin 9.8 g/dL (13.0-16.5)
[2022-04-25] MEDS: Acetaminophen 325 MG Tablet 650 MG PO (17:29)
[2022-04-25] MEDS: Mag Hydrox/Al Hydrox/Simeth 30 ML UDC PO (20:34)
[2022-04-25] MEDS: proCHLORPERazine 10 MG/2 ML Vial 5 MG IV (20:34)
[2022-04-25 22:35] LABS: Hematocrit 27.6 % (40-54); Hemoglobin 9.1 g/dL (13.0-16.5)
[2022-04-26] VITALS (32 sets, daily range): BP systolic 77–144; BP diastolic 38–95; PULSE 79–124; RESP 12–24; TEMP 36.3–37.9; O2SAT 93–99; BMI 38.7
[2022-04-26 03:21] LABS: Absolute Lymphocyte Count 2.15 X10^3/uL (0.83-4.51); Absolute Neutrophil Count 16.6 X10^3/uL (2.0-7.7); Basophil# 0.05 X10^3/uL; Basophil% 0.2 % (0-1); Hematocrit 25.6 % (40-54); Lymphocyte # 2.15 X10^3/ul (0.83-4.51); Lymphocyte % 10.2 % (19-41); Mean Corp Hgb Conc 35.2 g/dL (32-36); Mean Corpuscular Hgb 32.6 pg (27.0-32.0); Mean Corpuscular Volume 92.8 fL (80-94); Mean Platelet Vol. 10.5 fl (6.2-12.0); Monocyte# 2.21 X10^3/uL; Monocyte% 10.5 % (0-10); NRBC Flagged by Analyzer 0.1 % (0-5); Neutrophil # 16.55 X10^3/uL (2.7-7.7); Neutrophil % 78.4 % (47-70); POSITIVE DIFFERENTIAL YES; Platelet Count 115 K/mm3 (150-450); RBC Distribution Width CV 16.9 % (11.6-14.6); RBC Distribution Width SD 55.2 fl (35.1-43.9); Red Blood Count 2.76 M/mm3 (4.6-6.2); White Blood Count 21.1 K/mm3 (4.4-11.0)
[2022-04-26 03:40] LABS: ALB/GLOB Ratio 0.9 RATIO (0.9-2.4); AST(SGOT) 227 U/L (15-37); Alanine Aminotransfer ALT/SGPT 219 U/L (16-61); Albumin, Serum 2.6 g/dL (3.2-5.0); Alkaline Phosphatase 38 U/L (45-117); Anion Gap 6 (5-15); BUN 75 mg/dL (7-18); BUN/Creat Ratio 37.7 RATIO (10-20); Calcium,Total 7.8 mg/dL (8.5-10.1); Chloride 114 mmol/L (98-107); Creatinine, Serum 1.99 mg/dL (0.70-1.30); EST Glomerular Filtration Rate 34 mL/min (>60); Est Glom Filt Rate - Afr Amer 42 mL/min (>60); Estimated Creatinine Clearance 26.27 ml/min; Globulin 2.9 g/dL (2.2-4.2); Glucose 163 mg/dL (74-106); Protein, Total 5.5 g/dL (6.4-8.2); Sodium Level 146 mmol/L (136-145)
[2022-04-26 03:53] LABS: Differential Indicated SCAN CRITERIA MET
[2022-04-26 04:40] LABS: Differential Comment SCANNED
[2022-04-26] MEDS: Ondansetron 4 MG/2 ML Vial IV (06:07)
[2022-04-26] MEDS: 0.9% Saline Lock 10 ML Syringe IV ×3 (06:07→22:35)
[2022-04-26] MEDS: oxyCODONE 5 MG Tablet PO ×2 (06:08→20:32)
--- NOTE | 2022-04-26 07:04 | PN.CC_ITS ---
Assessment & Plan Assessment/Plan (1) Gastrointestinal bleeding: (2) Anemia: (3) Acute kidney injury: PLAN: Plan RECOMMENDATIONS: 1. Continue n.p.o. status pending GI recommendations 2. Obtain repeat H&H in 6 hours 3. Continue Protonix. Check with GI on octreotide 4. Possible dosing with Lasix pending respiratory status 5. Wean supplemental oxygen as tolerated IMPRESSIONS: 1. Hemorrhagic shock secondary to acute blood loss anemia secondary to an acute upper GI bleed with hypotension Endorgan damage demonstrated by problem #2. Patient still having some bloody bowel movements overnight. Unclear if this is residual. H&H has remained stable. Patient does have some mild increase in liver enzymes, but this may be secondary to intervention. We will repeat H&H this afternoon given ongoing bloody bowel movements. Defer to GI on whether patient needs a repeat evaluation by endoscopy. 2. Acute kidney injury secondary to problem #1 Slightly improved. Patient's baseline creatinine appears to be approximately 1.1-1.3. Patient presented with a creatinine of 2.4. Patient has received aggressive fluid resuscitation and blood products. We will continue to monitor. There is no indication for renal replacement therapy at this time. We will hold on a nephrology consult and monitor for response to therapy. 3. Acute anion gap metabolic acidosis Unclear etiology at this time. Patient does appear to be responding well to resuscitation efforts. Bicarbonate is back to normal. Some concern for a nonanion gap metabolic acidosis given GI losses. No bicarbonate drip at this time. We will continue to monitor closely. Gap is currently closed. 4. CAD/hypertension/KRISTY/hyperlipidemia/GERD/advanced age/BPH Complicates care, management, recovery and prognosis. Patient is reportedly a full code, but this cannot be verified independently. Patient is on Plavix at baseline, likely complicating problem #1. Patient is receiving a Protonix drip secondary to problem #1. Patient has a Dalal in place, so BPH leela uld not be an issue. Some concern for congestive heart failure, likely diastolic. May need to dose with Lasix given the amount of blood and fluids the patient has received. Subjective Subjective Patient did okay from a hemodynamic standpoint. However, patient has had some bloody bowel movements reported by nursing. Patient continues to have some lower abdominal cramping that is responsive to fentanyl. Patient's H&H has remained stable. Patient remains NPO. Objective Data Objective Data Vital Signs: Vital Signs Temp Pulse Resp BP Pulse Ox O2 Del Method O2 Flow Rate 37.4 C H 95 20 H 140/58 H 97 Nasal Cannula 2 04/26/22 06:00 04/26/22 06:00 04/26/22 06:00 04/26/22 06:00 04/26/22 06:00 04/26/22 06:00 04/26/22 06:00 Oxygen Flow Rate (L/min) 2 Oxygen Delivery Method Nasal Cannula Weight: 109 kg Body Mass Index (BMI) 38.9 Intake & Output: Intake and Output for Last 24 Hours 04/24/22 04/25/22 04/26/22 23:59 23:59 23:59 Intake Total 1000 / 1000 1857.33 / 1857.33 544.5 / 544.5 Output Total 810 / 810 250 / 250 Balance 1000 / 1000 1047.33 / 1047.33 294.5 / 294.5 Lab / Micro Data Attestation: I reviewed the patient's lab results. Result Diagrams: 04/26/22 03:05 04/26/22 03:05 Labs: Laboratory Results - last 24 hr 04/24/22 17:48: Diff Path Review Reviewed 04/24/22 17:50: Crossmatch See Detail 04/25/22 05:08: Hemoglobin A1c 5.6 04/25/22 10:00: Hgb 10.7 L, Hct 33.3 L 04/25/22 16:10: Hgb 9.8 L, Hct 30.4 L 04/25/22 22:20: Hgb 9.1 L, Hct 27.6 L 04/26/22 03:05: WBC 21.1 H, RBC 2.76 L, Hgb 9.0 L, Hct 25.6 L, MCV 92.8 D, MCH 32.6 H, MCHC 35.2 D, RDW Std Deviation 55.2 H, RDW Coeff of Maura 16.9 H, Plt Count 115 L, MPV 10.5, Immature Gran % (Auto) 0.700, Neut % (Auto) 78.4 H, Lymph % (Auto) 10.2 L, [place] % (Auto) 10.5 H, Eos % (Auto) 0.0, Baso % (Auto) 0.2, Absolute Neuts (auto) 16.6 H, Absolute Lymphs (auto) 2.15, Nucleated RBC % 0.1, Differential Comment SCANNED, Diff Path Review July04/26/22 03:05: Sodium 146 H, Potassium 4.0, Chloride 114 H, Carbon Dioxide 26.0, Anion Gap 6, BUN 75 H, Creatinine 1.99 H, Estim Creat Clear Calc 26.27, Est GFR (MDRD) Af Amer 42 L, Est GFR (MDRD) Non-Af 34 L, BUN/Creatinine Ratio 37.7 H, Glucose 163 H, Calcium 7.8 L, Total Bilirubin 0.60, AST 227 H, ALT 219 H , Alkaline Phosphatase 38 L, Total Protein 5.5 L, Albumin 2.6 L, Globulin 2.9, Albumin/Globulin Ratio 0.9 Radiography Diagnostic Testing: Radiology Impression Chest X-Ray 04/25/22 07:20 IMPRESSION: No radiographic evidence of acute cardiopulmonary disease. Electronically Signed: Brandon Roland MD at 7:47 EST , Physical Exam Const alert General Appearance: well developed HEENT normocephalic and head/scalp atraumatic HEENT Narrative: Better color today., dry mucous membranes. No upper dentures noted. Eyes PERRL, EOMs intact bilaterally and conjunctivae normal Neck full ROM Lymph Lymphatic: no lymphadenopathy noted Resp normal respiratory effort Auscultation: Negative for rales, rhonchi or wheezes Cardio regular rate, regular rhythm, S1 normal heart sound, S2 normal heart sound, no murmurs, no rub and no gallops GI soft to palpation Inspection: Negative for abdominal distention Palpation: tender suprapubic Back/Spine no CVA tenderness Extremity General Extremity: edema; Negative for clubbing Skin No no rashes or lesions noted Neuro CN's II-XII intact bilaterally, moves all extremities and no focal motor deficits Psych Mood & Affect: anxious Charges/Coding Visit Charges Inpatient E&M: 13773 Subs Hosp L3
[2022-04-26] MEDS: Furosemide 20 MG/2 ML VIAL IV (07:49)
--- NOTE | 2022-04-26 08:44 | EKG12_ITS ---
Test Reason : AFIB Blood Pressure : / mmHG Vent. Rate : 089 BPM Atrial Rate : 340 BPM P-R Int : 000 ms QRS Dur : 078 ms QT Int : 372 ms P-R-T Axes : 000 -02 060 degrees QTc Int : 452 ms Atrial fibrillation with premature ventricular or aberrantly conducted complexes Inferior infarct , age undetermined Anterior infarct , age undetermined Abnormal ECG When compared with ECG of 25-APR-2022 00:24, MANUAL COMPARISON REQUIRED, DATA IS UNCONFIRMED Confirmed by ALBAN MOTA, CODY ([id number]), make up editor FREDERICK QUINTANILLA ([id number]) on 04/28/2022 9:09:19 AM Referred By: SAUD Confirmed By:JOANNA PHOENIX MD
[2022-04-26 09:08] LABS: Hemoglobin 8.8 g/dL (13.0-16.5)
--- NOTE | 2022-04-26 10:38 | PN.HOSP_ITS ---
Subjective Subjective Was seen and examined today, he will be going down for a repeat EGD today, his hemoglobin today is 8.8. Creatinine is minimally improved. Objective Data Objective Data Vital Signs: Vital Signs Temp Pulse Resp BP Pulse Ox O2 Del Method O2 Flow Rate 99.6 F H 92 18 113/38 L 97 Nasal Cannula 2 04/26/22 10:00 04/26/22 10:00 04/26/22 10:00 04/26/22 10:00 04/26/22 10:00 04/26/22 10:00 04/26/22 10:00 Oxygen Flow Rate (L/min) 2 Oxygen Delivery Method Nasal Cannula Weight: 109 kg Body Mass Index (BMI) 38.9 Intake & Output: Intake and Output for Last 24 Hours 04/24/22 04/25/22 04/26/22 23:59 23:59 23:59 Intake Total 1000 / 1000 1857.33 / 1857.33 544.5 / 544.5 Output Total 810 / 810 1000 / 1000 Balance 1000 / 1000 1047.33 / 1047.33 -455.5 / -455.5 Lab / Micro Data Result Diagrams: 04/26/22 08:55 04/26/22 03:05 Labs: Laboratory Results - last 24 hr 04/24/22 17:48: Diff Path Review Reviewed 04/24/22 17:50: Crossmatch See Detail 04/25/22 16:10: Hgb 9.8 L, Hct 30.4 L 04/25/22 22:20: Hgb 9.1 L, Hct 27.6 L 04/26/22 03:05: WBC 21.1 H, RBC 2.76 L, Hgb 9.0 L, Hct 25.6 L, MCV 92.8 D, MCH 32.6 H, MCHC 35.2 D, RDW Std Deviation 55.2 H, RDW Coeff of Maura 16.9 H, Plt Count 115 L, MPV 10.5, Immature Gran % (Auto) 0.700, Neut % (Auto) 78.4 H, Lymph % (Auto) 10.2 L, [place] % (Auto) 10.5 H, Eos % (Auto) 0.0, Baso % (Auto) 0.2, Absolute Neuts (auto) 16.6 H, Absolute Lymphs (auto) 2.15, Nucleated RBC % 0.1, Differential Comment SCANNED, Diff Path Review July04/26/22 03:05: Sodium 146 H, Potassium 4.0, Chloride 114 H, Carbon Dioxide 26.0, Anion Gap 6, BUN 75 H, Creatinine 1.99 H, Estim Creat Clear Calc 26.27, Est GFR (MDRD) Af Amer 42 L, Est GFR (MDRD) Non-Af 34 L, BUN/Creatinine Ratio 37.7 H, Glucose 163 H, Calcium 7.8 L, Total Bilirubin 0.60, AST 227 H, ALT 219 H , Alkaline Phosphatase 38 L, Total Protein 5.5 L, Albumin 2.6 L, Globulin 2.9, Albumin/Globulin Ratio 0.9 04/26/22 08:55: Hgb 8.8 L, Hct 27.0 L Physical Exam Narrative alert, oriented x3, no apparent distress and average body habitus General Appearance: cooperative, well kempt and well developed Orientation / Consciousness: awake, oriented to person, oriented to place and oriented to time HEENT normocephalic, head/scalp atraumatic and moist oral mucous membranes Eyes PERRL, EOMs intact bilaterally and conjunctivae normal Neck supple, no JVD, thyroid normal and no carotid bruits General: trachea midline Resp normal respiratory effort, no retractions, no use of accessory muscles and clear to auscultation bilaterally Auscultation: Negative for rales, rhonchi or wheezes Cardio regular rate, regular rhythm, S1 normal heart sound, S2 normal heart sound, no murmurs, no rub and no gallops GI normal to inspection, nondistended, normoactive bowel sounds, soft to palpation, non-tender and non-distended Extremity no clubbing, cyanosis or edema Skin no rashes or lesions noted General Skin Exam: no breakdown Neuro oriented x3, CN's II-XII intact bilaterally, moves all extremities, no focal motor deficits and no sensory deficits noted Sensorium / Orientation: awake, alert, oriented to person, oriented to place and oriented to time Speech: speech normal Psych affect normal Assessment & Plan Assessment/Plan (1) Gastrointestinal bleeding: PLAN: Plan 1. Acute upper gastrointestinal hemorrhage secondary to bleeding duodenal ulcer-continue IV PPI, gastroenterology is participating in his care, he will undergo an EGD today #2 acute blood loss anemia secondary to acute duodenal hemorrhage from ulcer- requiring transfusion, patient will get a total of 4 units of packed red blood cells, hemoglobin today is 8.8 #3 atherosclerotic heart disease-stable at this time, patient's Plavix and aspirin will be held at this time due to upper GI bleed #4 essential hypertension-patient's blood pressure medications are being held at this time #5 hyperlipidemia-patient is on Lipitor Total clinical time spent by myself addressing the patient's medical problems, r eviewing all the data, and collaborating with patient's care team: 36 minutes Charges/Coding Visit Charges Inpatient E&M: 00394 Subs Hosp L2
--- NOTE | 2022-04-26 11:40 | NURSING ---
To EGD w/ [employer]PER[employer] at this time
[2022-04-26] MEDS: Lactated Ringers 1,000 ML 15 ML IV (11:59)
[2022-04-26 12:41] LABS: Pathologist Review Reviewed
--- NOTE | 2022-04-26 12:47 | OP.EGD_ITS ---
Patient Name: Lisandro Joyce Procedure Date: 04/26/2022 12:32 PM Date of : 1940 Age: 81 Procedure: Upper GI endoscopy Indications: Melena Providers: Bernardo Major DO Medicines: Monitored Anesthesia Care Patient Profile: This is an 81 year old male. Refer to note in patient chart for documentation of history and physical. Patient has symptoms of acute vomiting. Complications: No immediate complications. Procedure: Pre-Anesthesia Assessment: - Prior to the procedure, a History and Physical was performed, and patient medications and allergies were reviewed. The risks and benefits of the procedure and the sedation options and risks were discussed with the patient. All questions were answered and informed consent was obtained. Patient identification and proposed procedure were verified by the physician in the pre-procedure area. Mental Status Examination: alert and oriented. Airway Examination: normal oropharyngeal airway and neck mobility. Respiratory Examination: clear to auscultation. CV Examination: normal. Prophylactic Antibiotics: The patient does not require prophylactic antibiotics. Prior Anticoagulants: The patient has taken no previous anticoagulant or antiplatelet agents. ASA Grade Assessment: II - A patient with mild systemic disease. After reviewing the risks and benefits, the patient was deemed in satisfactory condition to undergo the procedure. The anesthesia plan was to use monitored anesthesia care (MAC). Immediately prior to administration of medications, the patient was re-assessed for adequacy to receive sedatives. The heart rate, respiratory rate, oxygen saturations, blood pressure, adequacy of pulmonary ventilation, and response to care were monitored throughout the procedure. The physical status of the patient was re-assessed after the procedure. After obtaining informed consent, the endoscope was passed under direct vision. Throughout the procedure, the patient's blood pressure, pulse, and oxygen saturations were monitored continuously. The gastroscope was introduced through the mouth, and advanced to the second part of duodenum. The upper GI endoscopy was accomplished without difficulty. The patient tolerated the procedure well. Scope In: 12:40:17 PM Scope Out: 12:42:26 PM Total Procedure Duration Time 0 hours 2 minutes 9 seconds Findings: The examined esophagus was normal. Localized moderate inflammation characterized by erythema and friability was found in the gastric body. Biopsies were taken with a cold forceps for Helicobacter pylori testing. Verification of patient identification for the specimen was done. Estimated blood loss was minimal. Three non-bleeding cratered duodenal ulcers with no stigmata of bleeding were found in the duodenal bulb and in the first portion of the duodenum. The largest lesion was 5 mm in largest dimension. Coagulation for bleeding prevention using argon plasma at 0.3 liters/minute and 20 reddy was successful. Estimated blood loss was minimal. Impression: - Normal esophagus. - Chronic gastritis. Biopsied. - Multiple non-bleeding duodenal ulcers with no stigmata of bleeding. Treated with argon plasma coagulation (APC). Recommendation: - [facility]. - Full liquid diet today. - No aspirin, ibuprofen, naproxen, or other non-steroidal anti-inflammatory drugs for 12 days after biopsy. - Use Protonix (pantoprazole) 40 mg PO BID for 12 weeks. - Use sucralfate tablets 1 gram PO QID for 4 weeks. Procedure Code(s): --- Professional --- 47407, 59, Esophagogastroduodenoscopy, flexible, transoral; with control of bleeding, any method 71773, Esophagogastroduodenoscopy, flexible, transoral; with biopsy, single or multiple CPT copyright 2017 [employer]. All rights reserved. The codes documented in this report are preliminary and upon freight traffic consultant review may be revised to meet current compliance requirements. Bernardo Major DO 04/26/2022 12:47:19 PM This report has been signed electronically. Number of Addenda: 0 Note Initiated On: 04/26/2022 12:32 PM
--- NOTE | 2022-04-26 12:48 | OP.CCLET_ITS ---
04/26/2022 Rajesh Caal Re : Upper GI endoscopy procedure for Lisandro Joyce Richar Ten This procedure was performed on Tuesday, April 26, 2022. My impressions and recommendations are as follows: Impressions : - Normal esophagus. - Chronic gastritis. Biopsied. - Multiple non-bleeding duodenal ulcers with no stigmata of bleeding. Treated with argon plasma coagulation (APC). Recommendations : - [facility]. - Full liquid diet today. - No aspirin, ibuprofen, naproxen, or other non-steroidal anti-inflammatory drugs for 12 days after biopsy. - Use Protonix (pantoprazole) 40 mg PO BID for 12 weeks. - Use sucralfate tablets 1 gram PO QID for 4 weeks. My findings are described in the full procedure note, which is enclosed. If I can be of further assistance, please feel free to contact me at . Sincerely, Bernardo Major, 04/26/2022 12:47:19 PM This report has been signed electronically.
[2022-04-26] MEDS: proCHLORPERazine 10 MG/2 ML Vial 5 MG IV (20:32)
[2022-04-26] MEDS: MELATONIN 3 MG TABLET PO (20:32)
[2022-04-26] MEDS: Acetaminophen 325 MG Tablet 650 MG PO (20:33)
[2022-04-26] MEDS: Sucralfate 1 GM Tablet PO (20:33)
[2022-04-26] MEDS: Atorvastatin Calcium 80 MG Tablet PO (20:33)
[2022-04-26 23:24] LABS: ALB/GLOB Ratio 0.9 RATIO (0.9-2.4); AST(SGOT) 190 U/L (15-37); Alanine Aminotransfer ALT/SGPT 252 U/L (16-61); Albumin, Serum 2.5 g/dL (3.2-5.0); Alkaline Phosphatase 41 U/L (45-117); Anion Gap 6 (5-15); BUN 61 mg/dL (7-18); BUN/Creat Ratio 34.9 RATIO (10-20); Chloride 116 mmol/L (98-107); Creatinine, Serum 1.75 mg/dL (0.70-1.30); EST Glomerular Filtration Rate 40 mL/min (>60); Est Glom Filt Rate - Afr Amer 48 mL/min (>60); Estimated Creatinine Clearance 29.87 ml/min; Globulin 2.9 g/dL (2.2-4.2); Glucose 150 mg/dL (74-106); Magnesium 2.5 mg/dL (1.6-2.6); Phosphorus 2.5 mg/dL (2.5-4.9); Potassium 3.8 mmol/L (3.5-5.1); Protein, Total 5.4 g/dL (6.4-8.2); Sodium Level 149 mmol/L (136-145)
[2022-04-27] VITALS (13 sets, daily range): BP systolic 104–151; BP diastolic 48–73; PULSE 85–121; RESP 16–24; TEMP 36.7–38.2; O2SAT 91–100
--- NOTE | 2022-04-27 00:55 | NURSING ---
1999-This RN was told in report that patient had developed Afib today which was confirmed on an EKG that Dr. Peterson had seen. Patient also continued to have frequent ectopy and small runs of vtach throughout the day and said that cardiology had been consulted. Once looking through the patient's orders this RN did not see consult placed. This RN then called Dr. Peterson to verify it was ok to place consult cardiology order in which he agreed to. 2124- Patient continues to have frequent ectopy and afib with HR sustaining 120s. Dr. Walker was texted with this update on patient and new orders were placed. 2129- Due to the consult order just being placed this RN called the [employer] sales consultant, Dr. Morgan, to update him on consult and patient's condition. Dr. Morgan had stated that this was the first time he had heard of this patient and was not previously consulted or updated. Dr. Morgan then asked for the EKG and rhythm strips to be sent to him to review. 2144- Dr. Morgan called back after reveiwing EKG and rhythm strips and ordered for an Amiodarone 150mg bolus to be given x1 and that he would see patient in the morning. 2149- Dr. Walker called this RN to ask why Dr. Morgan was not notified previously of consult. This RN stated that I believe overall it was a miscommunication between previous shift and this shift so that is why this RN had called Dr. Morgan and you to make sure everyone was on the same page.
[2022-04-27] MEDS: 0.9% Saline Lock 10 ML Syringe IV (05:47)
[2022-04-27] MEDS: Sucralfate 1 GM Tablet PO ×4 (05:48→20:21)
--- NOTE | 2022-04-27 06:56 | PN.CC_ITS ---
Assessment & Plan Assessment/Plan (1) Gastrointestinal bleeding: (2) Anemia: (3) Acute kidney injury: PLAN: Plan RECOMMENDATIONS: 1. Advance diet per GI recommendations 2. Likely okay to go to daily blood counts 3. Defer to cardiology on SVT 4. Could consider reinitiation of baseline Lasix dosing 5. Walking oximetry prior to discharge 6. Hemodynamically stable on room air. Will sign off from a critical care/pulmonary perspective. IMPRESSIONS: 1. Hemorrhagic shock secondary to acute blood loss anemia secondary to an acute upper GI bleed with hypotension Endorgan damage demonstrated by problem #2. Patient had no bloody bowel movements overnight. Repeat endoscopy was notable for other ulcers, but no inte rventions. H&H has remained stable. Patient does have some mild increase in liver enzymes, but this may be secondary to intervention. Hemostasis appears to be achieved. 2. Acute kidney injury secondary to problem #1 Slightly improved. Patient's baseline creatinine appears to be approximately 1.1-1.3. Patient presented with a creatinine of 2.4. Patient has received aggressive fluid resuscitation and blood products. We will continue to monitor. There is no indication for renal replacement therapy at this time. Patient appears to be responding to therapy, so no nephrology consult will be necessary in my opinion. 3. Acute anion gap metabolic acidosis Unclear etiology at this time. Patient does appear to be responding well to resuscitation efforts. Bicarbonate is back to normal. Some concern for a nonanion gap metabolic acidosis given GI losses. No bicarbonate drip at this time. We will continue to monitor closely. Gap is currently closed. 4. CAD/hypertension/KRISTY/hyperlipidemia/GERD/advanced age/BPH Complicates care, management, recovery and prognosis. Patient is reportedly a full code, but this cannot be verified independently. Patient is on Plavix at baseline, likely complicating problem #1. Patient is receiving a Protonix drip secondary to problem #1. Subjective Subjective Patient has done well from a hemodynamic standpoint. Patient did have significant ectopy with A. fib overnight that reportedly responded to amiodarone transiently. Patient has been on room air. Patient believes his pain is improving. No further bloody bowel movements have been noted. Patient has been tolerating a full liquid diet. Objective Data Objective Data Patient did have a repeat EGD yesterday with no intervention required. Vital Signs: Vital Signs Temp Pulse Resp BP Pulse Ox O2 Del Method O2 Flow Rate 36.9 C 101 H 21 H 108/60 96 Room Air 6 04/27/22 04:00 04/27/22 04:00 04/27/22 04:00 04/27/22 04:00 04/27/22 04:00 04/27/22 04:00 04/26/22 20:00 Oxygen Flow Rate (L/min) 6 Oxygen Delivery Method Room Air Weight: 109.8 kg Body Mass Index (BMI) 38.7 Intake & Output: Intake and Output for Last 24 Hours 04/25/22 04/26/22 04/27/22 23:59 23:59 23:59 Intake Total 1857.33 / 1857.33 1035.92 / 1135.92 300 / 300 Output Total 810 / 810 1650 / 2000 650 / 650 Balance 1047.33 / 1047.33 -614.08 / -864.08 -350 / -350 Lab / Micro Data Attestation: I reviewed the patient's lab results. Result Diagrams: 04/26/22 08:55 04/26/22 22:30 Labs: Laboratory Results - last 24 hr 04/24/22 17:50: Crossmatch See Detail 04/26/22 03:05: Diff Path Review Reviewed 04/26/22 08:55: Hgb 8.8 L, Hct 27.0 L 04/26/22 22:30: Sodium 149 H, Potassium 3.8, Chloride 116 H, Carbon Dioxide 27.0, Anion Gap 6, BUN 61 H, Creatinine 1.75 H, Estim Creat Clear Calc 29.87, Est GFR (MDRD) Af Amer 48 L, Est GFR (MDRD) Non-Af 40 L, BUN/Creatinine Ratio 34.9 H, Glucose 150 H, Calcium 8.0 L, Phosphorus 2.5, Magnesium 2.5, Total Bilirubin 0.50, AST 190 H, ALT 252 H, Alkaline Phosphatase 41 L, Total Protein 5.4 L, Albumin 2.5 L, Globulin 2.9, Albumin/Globulin Ratio 0.9 Physical Exam Const alert General Appearance: well developed HEENT normocephalic and head/scalp atraumatic HEENT Narrative: Better color today. Moist mucous membranes. No upper dentures noted. Eyes PERRL, EOMs intact bilaterally and conjunctivae normal Neck full ROM Lymph Lymphatic: no lymphadenopathy noted Resp normal respiratory effort Auscultation: Negative for rales, rhonchi or wheezes Cardio S1 normal heart sound, S2 normal heart sound, no murmurs, no rub and no gallops Rhythm: abnormal rhythm irregularly irregular GI soft to palpation Inspection: Negative for abdominal distention Palpation: Negative for tender Back/Spine no CVA tenderness Extremity General Extremity: edema bilateral (Improving); Negative for clubbing Skin No no rashes or lesions noted Neuro CN's II-XII intact bilaterally, moves all extremities and no focal motor deficits Psych cooperative and affect normal Charges/Coding Visit Charges Inpatient E&M: 26901 Subs Hosp L2
--- NOTE | 2022-04-27 08:27 | CON.PCM.CA_ITS ---
Assessment & Plan Assessment/Plan (1) Paroxysmal atrial fibrillation: PLAN: He does presents with new onset atrial fibrillation. This is likely from the stress of his GI bleed as well as the stress of hospitalization. We will obtain an echocardiogram to assess his left ventricular function. At this time I am not sure that he can be anticoagulated due to the above findings. * Will continue rate control with the beta-redd. He has since reverted back to sinus rhythm. (2) History of coronary artery stent placement: PLAN: He does have a history of previous remote coronary artery stenting. May be able to resume aspirin at a later date. (3) Essential (primary) hypertension: PLAN: He has a history of hypertension and will continue on the beta-redd prior to discharge. Thank you for allowing me to participate in the care of your patient. Please don't hesitate to call if any issues arise. HPI Consult Data Date of Consult: 04/27/22 HPI Narrative HPI Narrative: SOULEYMANE DUGGAN, is a 81 M who presents with a GI bleed. Patient was admitted to the intensive care unit and apparently went into atrial fibrillation with rapid ventricular response rate. Cardiology was notified through the nurse about the heart rate elevation.? He is a gentleman with a history of coronary artery disease status post ventricular fibrillation arrest who underwent cardiac catheterization with angioplasty and stenting to the circumflex artery branch in 2016.? He also has a history of hypertension, hyperlipidemia, obesity. He had been seen in the office and had been doing well with no previous episodes of shortness of breath or paroxysmal nocturnal dyspnea or pedal edema. He does have a history of bilateral pedal edema. [facility] Medical History Atherosclerosis of [place] coronary artery of [place] heart without angina pectoris BPH (benign prostatic hyperplasia) Cardiac arrest (11/2015) COVID-19 virus detected (03/21/21) Essential (primary) hypertension GERD (gastroesophageal reflux disease) Hyperlipidemia Obesity Obstructive sleep apnea Syncope and collapse Home Medications aspirin 81 mg tablet,delayed release (Adult Aspirin Regimen) 81 mg PO QDAY 03/22/17 [History Last Taken Unknown] atenolol 50 mg tablet 50 mg PO BID #180 tabs 05/03/18 [Rx Last Taken Unknown] losartan 100 mg tablet 100 mg PO DAILY #90 tabs 05/03/18 [Rx Last Taken Unknown] omega-3 fatty acids 1,000 mg capsule (Fish Oil Concentrate) 1,000 mg PO DAILY 09/30/20 [History Last Taken Unknown] furosemide 40 mg tablet (Lasix) 40 mg PO DAILY #90 tabs 06/07/21 [Rx Last Taken Unknown] nitroglycerin 0.4 mg sublingual tablet 0.4 mg sublingual Q5-15M PRN chest pain #25 tabs 06/07/21 [Rx Last Taken Unknown] atorvastatin 80 mg tablet 80 mg PO QDAY #90 tabs 07/05/21 [Rx Last Taken Unknown] cinnamon bark 500 mg capsule (Cinnamon) 500 mg PO DAILY 12/08/21 [History Last Taken Unknown] clopidogrel 75 mg tablet (Plavix) 75 mg PO QDAY #90 tabs 12/08/21 [Rx Last Taken Unknown] niacin 500 mg tablet 500 mg PO DAILY 12/08/21 [History Last Taken Unknown] Allergy/AdvReac Type Severity Reaction Status Date / Time No Known Allergies Allergy Verified 12/08/21 13:44 Family History Father CAD (coronary artery disease) Heart disease Hypertension Myocardial infarction Brother CAD (coronary artery disease) Heart disease Hypertension Myocardial infarction Mother CAD (coronary artery disease) Heart disease Hypertension Myocardial infarction Other Diabetes Surgical History History of coronary artery stent placement (12/07/15) History of hemorrhoidectomy (1972) History of right hip replacement (09/2013) Social History household members: spouse Smoking Status: Former smoker how long ago did patient quit smoking: Quit in his 30s, smoked since teen (~ 15-20 years), < 1 ppd day. alcohol intake: former substance use type: does not use caffeine: Yes Type: tea Number of servings: 2 ROS Constitutional Constitutional: Denies fever(s) or weight loss Eyes Eyes: Reports systems reviewed and no addt'l complaints, except as documented ENT HEENT: Reports systems reviewed and no addt'l complaints, except as documented Cardiovascular Cardiovascular: Denies chest pain at rest, chest pain with activity, dyspnea at rest, dyspnea on exertion, edema, palpitations or paroxysmal nocturnal dyspnea Respiratory/Chest Respiratory/Chest: Denies dyspnea on exertion, productive cough, shortness of breath at rest or shortness of breath with exertion Gastrointestinal Gastrointestinal: Denies change in bowel habits, nausea, vomiting or weight changes Genitourinary Genitourinary: Denies difficulty urinating Musculoskeletal Musculoskeletal: Denies joint stiffness or muscle weakness Integumentary Integumentary: Denies lesions Neurologic Neurologic: Denies dizziness or syncope Psychiatric Psychiatric: Denies anxiety Endocrine Endocrinology: Denies excessive sweating or fatigue Hematologic/Lymphatic Hematologic/Lymphatic: Denies anemia Allergic/Immunologic Allergic/Immunologic: Denies seasonal rhinorrhea Physical Exam Const alert, oriented x3 and no apparent distress General Appearance: cooperative HEENT hearing grossly normal bilaterally Head and Scalp: atraumatic Eyes EOMs intact bilaterally Neck General: normal visual inspection Chest inspection of chest normal and palpation of chest normal Resp normal respiratory effort Auscultation: clear to auscultation bilaterally Cardio regular rate, regular rhythm, S1 normal heart sound and S2 normal heart sound Jugular Venous Distention: JVD GI normal to inspection, nondistended, normoactive bowel sounds Extremity normal capillary refill and no pedal edema Peripheral Pulses: Yes pulses 2+ throughout and femoral pulses present Skin no rashes or lesions noted Neuro oriented x3 and CN's II-XII intact bilaterally Psych Appearance: grossly normal and appropriate Risk Stratification Risk Stratification Applicable: No Objective Data Vital Signs: Vital Signs Temp Pulse Resp BP Pulse Ox O2 Del Method O2 Flow Rate 98.4 F 101 H 21 H 108/60 96 Room Air 6 04/27/22 04:00 04/27/22 04:00 04/27/22 04:00 04/27/22 04:00 04/27/22 04:00 04/27/22 04:00 04/26/22 20:00 Oxygen Flow Rate (L/min) 6 Oxygen Delivery Method Room Air Weight: 242 lb 1.081 oz Body Mass Index (BMI) 38.7 Intake & Output: Intake and Output for Last 24 Hours 04/25/22 04/26/22 04/27/22 23:59 23:59 23:59 Intake Total 1857.33 / 1857.33 1035.92 / 1135.92 300 / 300 Output Total 810 / 810 1650 / 2000 650 / 650 Balance 1047.33 / 1047.33 -614.08 / -864.08 -350 / -350 Lab / Micro Data Result Diagrams: 04/26/22 08:55 04/26/22 22:30 Labs: Laboratory Results - last 24 hr 04/26/22 03:05: Diff Path Review Reviewed 04/26/22 08:55: Hgb 8.8 L, Hct 27.0 L 04/26/22 22:30: Sodium 149 H, Potassium 3.8, Chloride 116 H, Carbon Dioxide 27.0, Anion Gap 6, BUN 61 H, Creatinine 1.75 H, Estim Creat Clear Calc 29.87, Est GFR (MDRD) Af Amer 48 L, Est GFR (MDRD) Non-Af 40 L, BUN/Creatinine Ratio 34.9 H, Glucose 150 H, Calcium 8.0 L, Phosphorus 2.5, Magnesium 2.5, Total Bilirubin 0.50, AST 190 H, ALT 252 H, Alkaline Phosphatase 41 L, Total Protein 5.4 L, Albumin 2.5 L, Globulin 2.9, Albumin/Globulin Ratio 0.9 Cardiology Labs/Tests 04/26/22 08:55: Hgb 8.8 L, Hct 27.0 L 04/26/22 22:30: Sodium 149 H, Potassium 3.8, Chloride 116 H, Carbon Dioxide 27.0, Anion Gap 6, BUN 61 H, Creatinine 1.75 H, Est GFR (MDRD) Af Amer 48 L, Est GFR (MDRD) Non-Af 40 L, BUN/Creatinine Ratio 34.9 H, Glucose 150 H, Calcium 8.0 L, Phosphorus 2.5, Magnesium 2.5, Total Bilirubin 0.50 Rhythm: EKG: ECHO: Stress Test: Cardiac Cath: PCI: CT Surgery: Holter monitor: EPS: PPM: CXR: Chest CT Scan:
--- NOTE | 2022-04-27 08:33 | ECHOD_ITS ---
Reason For Study: ATRIAL FIB/FLUTTER Procedure This was a 2D Doppler, Color Flow transthoracic echocardiogram. The study was technically difficult. Exam performed in department. Left Ventricle Normal left ventricle. Moderate concentric left ventricular hypertrophy. Left ventricular systolic function is normal. The estimated ejection fraction is 60 %. No regional wall motion abnormalities noted. Right Ventricle Normal RV size. Normal systolic function. Atria The left atrium is moderately enlarged. Normal right atrium. Mitral Valve Normal mitral valve. Tricuspid Valve Normal tricuspid valve. Trivial tricuspid valve insufficiency. Aortic Valve Trisinus/trileaflet aortic valve. Pulmonic Valve Normal pulmonic valve. Great Vessels Normal aortic root. The pulmonary artery is normal size. Normal inferior vena cava. Pericardium/Pleural No pericardial effusion. MMode/2D Measurements & Calculations LVIDd: 4.8 cm IVSd: 1.8 cm LVOT diam: 2.4 cm LVIDs: 2.9 cm LVPWd: 1.6 cm LVOT area: 4.7 cm2 FS: 40.0 % Ao root diam: 3.4 cm LAV(MOD-bp): 85.5 ml LVAd ap4: 28.5 cm2 LAV(MOD-bp) Indexed: 39.7 ml/m2 LVLd ap4: 7.9 cm LAV(MOD-sp2): 79.5 ml EDV(MOD-sp4): 87.1 ml LAV(MOD-sp4): 91.4 ml EDV(sp4-el): 86.9 ml LVAs ap4: 14.9 cm2 LVLs ap4: 6.8 cm ESV(MOD-sp4): 29.4 ml ESV(sp4-el): 27.8 ml EF(MOD-sp4): 66.2 % EF(sp4-el): 68.0 % LVAd ap2: 24.8 cm2 SV(MOD-sp4): 57.7 ml SV(MOD-sp2): 43.6 ml LVLd ap2: 8.5 cm EDV(MOD-sp2): 66.6 ml EDV(sp2-el): 61.7 ml LVAs ap2: 13.0 cm2 LVLs ap2: 7.2 cm ESV(MOD-sp2): 22.9 ml ESV(sp2-el): 19.8 ml EF(MOD-sp2): 65.6 % SV(sp4-el): 59.1 ml LA dimension(2D): 4.6 cm LA A4 area: 25.8 cm2 RA A4 area: 19.3 cm2 Doppler Measurements & Calculations MV E max stephanie: 139.8 cm/sec Ao V2 max: 248.1 cm/sec LV V1 max: 102.9 cm/sec Ao max P.6 mmHg LV V1 max P.3 mmHg Ao V2 mean: 162.9 cm/sec LV V1 mean P.5 mmHg Ao mean P.3 mmHg LV V1 mean: 76.7 cm/sec Ao V2 VTI: 37.3 cm LV V1 VTI: 17.2 cm AV (velocity ratio): 0.46 MICHAEL(I,D): 2.1 cm2 MICHAEL(V,D): 1.9 cm2 SV(LVOT): 80.2 ml PA V2 max: 207.9 cm/sec TR max stephanie: 175.8 cm/sec PA V2 mean: 143.6 cm/sec TR max P.4 mmHg ECHO/Echo Complete Interpretation Summary Normal left ventricle. Left ventricular systolic function is normal. The estimated ejection fraction is 60 %. Moderate concentric left ventricular hypertrophy. The left atrium is moderately enlarged. Ordering Physician: Papa Morgan Referring Physician: Braden Mcneal Performed By: Aaliyah Lares, CORNELIUS, RVT
[2022-04-27] MEDS: Metoprolol Tartrate 25 MG Tablet PO ×2 (10:21→20:21)
--- NOTE | 2022-04-27 13:59 | PN.HOSP_ITS ---
Subjective Subjective Patient was seen and examined today, he had episode of atrial fibrillation and was seen by cardiology, he is currently in sinus rhythm at this time with PACs. I have advanced the patient's diet today to a regular diet. Objective Data Objective Data Vital Signs: Vital Signs Temp Pulse Resp BP Pulse Ox O2 Del Method O2 Flow Rate 99.3 F H 99 17 113/55 L 95 Room Air 6 04/27/22 09:00 04/27/22 10:21 04/27/22 09:00 04/27/22 10:21 04/27/22 09:00 04/27/22 09:00 04/26/22 20:00 Oxygen Flow Rate (L/min) 6 Oxygen Delivery Method Room Air Weight: 109.8 kg Body Mass Index (BMI) 38.7 Intake & Output: Intake and Output for Last 24 Hours 04/25/22 04/26/22 04/27/22 23:59 23:59 23:59 Intake Total 1857.33 / 1857.33 1035.92 / 1135.92 667 / 667 Output Total 810 / 810 1650 / 2000 1000 / 1000 Balance 1047.33 / 1047.33 -614.08 / -864.08 -333 / -333 Lab / Micro Data Result Diagrams: 04/26/22 08:55 04/26/22 22:30 Labs: Laboratory Results - last 24 hr 04/26/22 22:30: Sodium 149 H, Potassium 3.8, Chloride 116 H, Carbon Dioxide 27.0, Anion Gap 6, BUN 61 H, Creatinine 1.75 H, Estim Creat Clear Calc 29.87, Est GFR (MDRD) Af Amer 48 L, Est GFR (MDRD) Non-Af 40 L, BUN/Creatinine Ratio 34.9 H, Glucose 150 H, Calcium 8.0 L, Phosphorus 2.5, Magnesium 2.5, Total Bilirubin 0.50, AST 190 H, ALT 252 H, Alkaline Phosphatase 41 L, Total Protein 5.4 L, Albumin 2.5 L, Globulin 2.9, Albumin/Globulin Ratio 0.9 Radiography Diagnostic Testing: Radiology Impression Echocardiogram 04/27/22 08:33 Interpretation Summary Normal left ventricle. Left ventricular systolic function is normal. The estimated ejection fraction is 60 %. Moderate concentric left ventricular hypertrophy. The left atrium is moderately enlarged. Ordering Physician: Papa Morgan Referring Physician: Braden Mcneal Performed By: Aaliyah Lares, REAGANCS, RVT Physical Exam Narrative alert, oriented x3, no apparent distress and average body habitus General Appearance: cooperative, well kempt and well developed Orientation / Consciousness: awake, oriented to person, oriented to place and oriented to time HEENT normocephalic, head/scalp atraumatic and moist oral mucous membranes Eyes PERRL, EOMs intact bilaterally and conjunctivae normal Neck supple, no JVD, thyroid normal and no carotid bruits General: trachea midline Resp normal respiratory effort, no retractions, no use of accessory muscles and clear to auscultation bilaterally Auscultation: Negative for rales, rhonchi or wheezes Cardio regular rate, regular rhythm, S1 normal heart sound, S2 normal heart sound, no murmurs, no rub and no gallops GI normal to inspection, nondistended, normoactive bowel sounds, soft to palpation, non-tender and non-distended Extremity no clubbing, cyanosis or edema Skin no rashes or lesions noted General Skin Exam: no breakdown Neuro oriented x3, CN's II-XII intact bilaterally, moves all extremities, no focal motor deficits and no sensory deficits noted Sensorium / Orientation: awake, alert, oriented to person, oriented to place and oriented to time Speech: speech normal Psych affect normal Assessment & Plan Assessment/Plan (1) Paroxysmal atrial fibrillation: (2) Gastrointestinal bleeding: PLAN: Plan 1. Acute upper gastrointestinal hemorrhage secondary to bleeding duodenal ulcer-continue IV PPI, gastroenterology is participating in his care, he will undergo an EGD today #2 acute blood loss anemia secondary to acute duodenal hemorrhage from ulcer- requiring transfusion, patient will get a total of 4 units of packed red blood cells, hemoglobin today is 8.8 #3 atherosclerotic heart disease-stable at this time, patient's Plavix and aspirin will be held at this time due to upper GI bleed #4 essential hypertension-patient's blood pressure medications are being held at this time #5 hyperlipidemia-patient is on Lipitor #6 paroxysmal atrial fibrillation-patient is echocardiogram showed a normal EF, he will remain on rate limiting medications, he cannot be anticoagulated due to his severe upper GI bleed. Total clinical time spent by myself addressing the patient's medical problems, reviewing all the data, and collaborating with patient's care team: 37 minutes Charges/Coding Visit Charges Inpatient E&M: 40061 Subs Hosp L2
[2022-04-27] MEDS: Acetaminophen 325 MG Tablet 650 MG PO (15:24)
--- NOTE | 2022-04-27 16:47 | PCM.PROGNOTE ---
Subjective Subjective Patient underwent a repeat upper endoscopy yesterday for an acute upper GI bleed. His ulcers were healing well except for one ulcer in the duodenum that needed repeat APC treatment. Objective Data Objective Data Vital Signs: Vital Signs Temp Pulse Resp BP Pulse Ox O2 Del Method O2 Flow Rate 98.4 F 102 H 18 151/73 H 95 Room Air 6 04/27/22 15:55 04/27/22 15:55 04/27/22 15:55 04/27/22 15:55 04/27/22 15:55 04/27/22 15:55 04/26/22 20:00 Oxygen Flow Rate (L/min) 6 Oxygen Delivery Method Room Air Weight: 242 lb 1.081 oz Body Mass Index (BMI) 38.7 Intake & Output: Intake and Output for Last 24 Hours 04/25/22 04/26/22 04/27/22 23:59 23:59 23:59 Intake Total 1857.33 / 1857.33 1035.92 / 1135.92 770 / 770 Output Total 810 / 810 1650 / 2000 1000 / 1000 Balance 1047.33 / 1047.33 -614.08 / -864.08 -230 / -230 Lab / Micro Data Result Diagrams: 04/26/22 08:55 04/26/22 22:30 Labs: Laboratory Results - last 24 hr 04/26/22 22:30: Sodium 149 H, Potassium 3.8, Chloride 116 H, Carbon Dioxide 27.0, Anion Gap 6, BUN 61 H, Creatinine 1.75 H, Estim Creat Clear Calc 29.87, Est GFR (MDRD) Af Amer 48 L, Est GFR (MDRD) Non-Af 40 L, BUN/Creatinine Ratio 34.9 H, Glucose 150 H, Calcium 8.0 L, Phosphorus 2.5, Magnesium 2.5, Total Bilirubin 0.50, AST 190 H, ALT 252 H, Alkaline Phosphatase 41 L, Total Protein 5.4 L, Albumin 2.5 L, Globulin 2.9, Albumin/Globulin Ratio 0.9 Radiography Diagnostic Testing: Radiology Impression Echocardiogram 04/27/22 08:33 Interpretation Summary Normal left ventricle. Left ventricular systolic function is normal. The estimated ejection fraction is 60 %. Moderate concentric left ventricular hypertrophy. The left atrium is moderately enlarged. Ordering Physician: Papa Morgan Referring Physician: Braden Mcneal Performed By: Aaliyah Lares, RDCS, RVT Physical Exam Narrative alert, oriented x3, no apparent distress and average body habitus General Appearance: cooperative, well kempt and well developed Orientation / Consciousness: awake, oriented to person, oriented to place and oriented to time HEENT normocephalic, head/scalp atraumatic and moist oral mucous membranes Eyes PERRL, EOMs intact bilaterally and conjunctivae normal Neck supple, no JVD, thyroid normal and no carotid bruits General: trachea midline Resp normal respiratory effort, no retractions, no use of accessory muscles and clear to auscultation bilaterally Auscultation: Negative for rales, rhonchi or wheezes Cardio regular rate, regular rhythm, S1 normal heart sound, S2 normal heart sound, no murmurs, no rub and no gallops GI normal to inspection, nondistended, normoactive bowel sounds, soft to palpation, non-tender and non-distended Extremity no clubbing, cyanosis or edema Skin no rashes or lesions noted General Skin Exam: no breakdown Neuro oriented x3, CN's II-XII intact bilaterally, moves all extremities, no focal motor deficits and no sensory deficits noted Sensorium / Orientation: awake, alert, oriented to person, oriented to place and oriented to time Speech: speech normal Psych affect normal Assessment & Plan Assessment/Plan (1) Gastrointestinal bleeding: PLAN: Acute GI bleed thought to be secondary to medications. He has been on octreotide and Protonix drip for 24 hours. Recommend is to transitioned to oral Protonix 40 mg p.o. twice daily and Carafate 1 g p.o. 4 times daily. Continue to trend hemoglobin and hematocrit. He will need repeat upper endoscopy as an outpatient for surveillance of his peptic ulcer disease. If at that time his ulcers all healed he can go on anticoagulation for atrial fibrillation. Charges/Coding Visit Charges Inpatient E&M: 41883 Subs Hosp L2
[2022-04-27] MEDS: Amiodarone 200 MG Tablet PO (20:21)
[2022-04-27] MEDS: Atorvastatin Calcium 80 MG Tablet PO (20:21)
[2022-04-28] VITALS (14 sets, daily range): BP systolic 106–147; BP diastolic 53–65; PULSE 84–108; RESP 18–26; TEMP 37.6–38.1; O2SAT 92–97
[2022-04-28] MEDS: Sucralfate 1 GM Tablet PO ×4 (06:08→20:46)
[2022-04-28] MEDS: Amiodarone 200 MG Tablet PO ×2 (08:04→20:46)
[2022-04-28] MEDS: Metoprolol Tartrate 25 MG Tablet PO (08:04)
--- NOTE | 2022-04-28 08:26 | PN.CARD_ITS ---
Subjective Subjective Patient seen and evaluated. Appears to be doing well. Still having episodes of nonsustained VT Objective Data Vital Signs: Vital Signs Temp Pulse Resp BP Pulse Ox O2 Del Method O2 Flow Rate 100.5 F H 106 H 26 H 147/62 H 93 Room Air 2 04/28/22 06:00 04/28/22 08:04 04/28/22 06:00 04/28/22 08:04 04/28/22 06:00 04/28/22 06:00 04/28/22 03:35 Oxygen Flow Rate (L/min) 2 Oxygen Delivery Method Room Air Weight: 245 lb 5.992 oz Body Mass Index (BMI) 38.7 Intake & Output: Intake and Output for Last 24 Hours 04/26/22 04/27/22 04/28/22 23:59 23:59 23:59 Intake Total 1035.92 / 1135.92 1120 / 1520 600 / 600 Output Total 1650 / 2000 1350 / 1850 950 / 950 Balance -614.08 / -864.08 -230 / -330 -350 / -350 Lab / Micro Data Result Diagrams: 04/26/22 08:55 04/26/22 22:30 Cardiology Labs/Tests Rhythm: EKG: ECHO: Stress Test: Cardiac Cath: PCI: CT Surgery: Holter monitor: EPS: PPM: CXR: Chest CT Scan: Radiography Diagnostic Testing: Radiology Impression Echocardiogram 04/27/22 08:33 Interpretation Summary Normal left ventricle. Left ventricular systolic function is normal. The estimated ejection fraction is 60 %. Moderate concentric left ventricular hypertrophy. The left atrium is moderately enlarged. Ordering Physician: Papa Morgan Referring Physician: Braden Mcneal Performed By: Aaliyah Lares, CORNELIUS, RVT Physical Exam Const alert, oriented x3 and no apparent distress General Appearance: cooperative HEENT hearing grossly normal bilaterally Head and Scalp: atraumatic Eyes EOMs intact bilaterally Neck General: normal visual inspection Chest inspection of chest normal and palpation of chest normal Resp normal respiratory effort Auscultation: clear to auscultation bilaterally Cardio regular rate, regular rhythm, S1 normal heart sound and S2 normal heart sound Jugular Venous Distention: JVD GI normal to inspection, nondistended, normoactive bowel sounds Extremity normal capillary refill and no pedal edema Peripheral Pulses: Yes pulses 2+ throughout and femoral pulses present Skin no rashes or lesions noted Neuro oriented x3 and CN's II-XII intact bilaterally Psych Appearance: grossly normal and appropriate Assessment & Plan Assessment/Plan (1) Paroxysmal atrial fibrillation: PLAN: He does presents with new onset atrial fibrillation. This is likely from the stress of his GI bleed as well as the stress of hospitalization. His echocardiogram demonstrated preserved left ventricular systolic function. At this time I am not sure that he can be anticoagulated due to the above findings. We will probably wait till he is cleared from the GI standpoint. * Will continue rate control with the beta-redd. He has since reverted back to sinus rhythm. (2) History of coronary artery stent placement: PLAN: He does have a history of previous remote coronary artery stenting. May be able to resume aspirin at a later date. We will hold off for the next few weeks. (3) Essential (primary) hypertension: PLAN: He has a history of hypertension and will continue on the beta-redd prior to discharge. Thank you for allowing me to participate in the care of your patient. Please don't hesitate to call if any issues arise. (4) NSVT (nonsustained ventricular tachycardia): PLAN: Patient has episodes of nonsustained VT. We will recommend continuing the beta-redd as well as amiodarone for now.
--- NOTE | 2022-04-28 09:27 | CASEMGMT ---
Social Work Consult: [facility] placement Referral source: [facility] Per Dr. Silva patient would like to return to home with family. Dr. Silva inquiring if family is able to manage patient at current level of assistance. Telephone call to patient spouse, Nilsa. This social service director touching base with Nilsa on patient current care needs per therapy notes from yesterday. Nilsa reports some concern with patient returning to home but I want to honor what he wants. This social service director explaining possible benefits of patient going to a senior living short term for therapy, Nilsa voiced understanding. Nilsa plans to come and meet with patient today at 11:00am and talk things over. Nilsa agreeable to this social service director stopping by patient room shortly after 11 for support and to be able to answer questions. Social Work to continue to follow. Carlie NIELSEN, MINDY
[2022-04-28] MEDS: Metoprolol Tartrate 50 MG Tablet PO ×2 (10:00→20:46)
[2022-04-28 10:20] LABS: Absolute Lymphocyte Count 0.88 X10^3/uL (0.83-4.51); Absolute Neutrophil Count 10.7 X10^3/uL (2.0-7.7); Basophil# 0.02 X10^3/uL; Basophil% 0.2 % (0-1); Eosinophil# 0.01 X10^3/uL; Eosinophils% 0.1 % (0-5); Hematocrit 23.1 % (40-54); Hemoglobin 7.1 g/dL (13.0-16.5); Lymphocyte # 0.88 X10^3/ul (0.83-4.51); Mean Corp Hgb Conc 30.7 g/dL (32-36); Mean Corpuscular Volume 100.9 fL (80-94); Mean Platelet Vol. 10.7 fl (6.2-12.0); Monocyte# 0.81 X10^3/uL; Monocyte% 6.5 % (0-10); NRBC Flagged by Analyzer 0.9 % (0-5); Neutrophil # 10.71 X10^3/uL (2.7-7.7); Neutrophil % 85.4 % (47-70); Platelet Count 118 K/mm3 (150-450); RBC Distribution Width CV 17.8 % (11.6-14.6); RBC Distribution Width SD 61.6 fl (35.1-43.9); Red Blood Count 2.29 M/mm3 (4.6-6.2); White Blood Count 12.5 K/mm3 (4.4-11.0)
--- NOTE | 2022-04-28 12:20 | CASEMGMT ---
Social Work SW met w/pt, , son and [id number] to review discharge plan. After some discussion, plan will be for pt to go to a senior care facility from the hospital. SW provided to a list of senior care facilities via [facility], complete with quality and resource use data, in pt's insurance network and preferred geographic area. states would like referral to [facility], pt agreeable to what states. SW explained will make referral, will need insurance to approve. SW explained will start referral today. [facility] await [facility]. MINDY Anton
--- NOTE | 2022-04-28 14:04 | CASEMGMT ---
Social Work This social worker clinical communicating to patient that [facility] is able to accept patient per [facility] and that pre-cert is being started. Patient thanked this social worker clinical and plans to update family later today. PLAN: [facility], pending pre-cert. Carlie NIELSEN, MINDY
[2022-04-28] MEDS: 0.9% Saline Lock 10 ML Syringe IV (14:25)
[2022-04-28] MEDS: Acetaminophen 325 MG Tablet 650 MG PO (14:25)
--- NOTE | 2022-04-28 15:37 | PN_ITS ---
Subjective Subjective Patient is doing well. He is tolerating a diet. He is not have any abdominal pain. He denies any black stools. He denies any abdominal pain. He denies any chest pain or shortness of breath. Objective Data Objective Data Vital Signs: Vital Signs Temp Pulse Resp BP Pulse Ox O2 Del Method O2 Flow Rate 100.1 F H 93 20 H 119/64 94 Room Air 2 04/28/22 14:00 04/28/22 14:00 04/28/22 14:00 04/28/22 14:00 04/28/22 14:50 04/28/22 14:50 04/28/22 03:35 Oxygen Flow Rate (L/min) 2 Oxygen Delivery Method Room Air Weight: 245 lb 5.992 oz Body Mass Index (BMI) 38.7 Intake & Output: Intake and Output for Last 24 Hours 04/26/22 04/27/22 04/28/22 23:59 23:59 23:59 Intake Total 1035.92 / 1135.92 1120 / 1520 1160 / 1160 Output Total 1650 / 2000 1350 / 1850 1350 / 1350 Balance -614.08 / -864.08 -230 / -330 -190 / -190 Lab / Micro Data Result Diagrams: 04/28/22 10:10 04/26/22 22:30 Labs: Laboratory Results - last 24 hr 04/28/22 10:10: WBC 12.5 H, RBC 2.29 L, Hgb 7.1 L, Hct 23.1 L, MCV 100.9 H D, MCH 31.0, MCHC 30.7 L D, RDW Std Deviation 61.6 H, RDW Coeff of Maura 17.8 H, Plt Count 118 L, MPV 10.7, Immature Gran % (Auto) 0.800, Neut % (Auto) 85.4 H, Lymph % (Auto) 7.0 L, [place] % (Auto) 6.5, Eos % (Auto) 0.1, Baso % (Auto) 0.2, Absolute Neuts (auto) 10.7 H, Absolute Lymphs (auto) 0.88, Nucleated RBC % 0.9 Physical Exam Const alert, oriented x3 and no apparent distress General Appearance: cooperative HEENT hearing grossly normal bilaterally Head and Scalp: atraumatic Eyes EOMs intact bilaterally Neck General: normal visual inspection Chest inspection of chest normal and palpation of chest normal Resp normal respiratory effort Auscultation: clear to auscultation bilaterally Cardio regular rate, regular rhythm, S1 normal heart sound and S2 normal heart sound Jugular Venous Distention: JVD GI normal to inspection, nondistended, normoactive bowel sounds Extremity normal capillary refill and no pedal edema Peripheral Pulses: Yes pulses 2+ throughout and femoral pulses present Skin no rashes or lesions noted Neuro oriented x3 and CN's II-XII intact bilaterally Psych Appearance: grossly normal and appropriate Assessment & Plan Assessment/Plan (1) Gastrointestinal bleeding: PLAN: Acute GI bleed thought to be secondary to medications. He has been on octreotide and Protonix drip for 24 hours. Recommend is to transitioned to oral Protonix 40 mg p.o. twice daily and Carafate 1 g p.o. 4 times daily. Continue to trend hemoglobin and hematocrit. He will need repeat upper endoscopy as an outpatient for surveillance of his peptic ulcer disease. If at that time his ulcers all healed he can go on anticoagulation for atrial fibrillation. PLAN: Plan His hemoglobin seems to be stable. I would start him on iron ferrous sulfate 325 mg p.o. 3 times daily along with Colace 100 mg p.o. twice daily. Once he gets his repeat upper endoscopy as an outpatient we can discuss him going back on anticoagulation or antiplatelet therapy. Charges/Coding Visit Charges Inpatient E&M: 69279 Subs Hosp L3
--- NOTE | 2022-04-28 16:41 | PN.HOSP_ITS ---
Subjective Subjective Patient was seen and examined today, he is still running a low-grade temperature at times, patient does not appear to be exhibiting symptoms of a urinary tract infection or pneumonia however. Patient's white blood cell count today was 12.5, hemoglobin was 7.1. PT and OT evaluated the patient, it appears that he w ould benefit from going to a [facility]itentiary facility for short-term rehab services and the patient's family would be in favor of this. Patient is no longer on oxygen. Objective Data Objective Data Vital Signs: Vital Signs Temp Pulse Resp BP Pulse Ox O2 Del Method O2 Flow Rate 100.1 F H 93 20 H 119/64 94 Room Air 2 04/28/22 14:00 04/28/22 14:00 04/28/22 14:00 04/28/22 14:00 04/28/22 14:50 04/28/22 14:50 04/28/22 03:35 Oxygen Flow Rate (L/min) 2 Oxygen Delivery Method Room Air Weight: 111.3 kg Body Mass Index (BMI) 38.7 Intake & Output: Intake and Output for Last 24 Hours 04/26/22 04/27/22 04/28/22 23:59 23:59 23:59 Intake Total 1035.92 / 1135.92 1120 / 1520 1160 / 1160 Output Total 1650 / 2000 1350 / 1850 1350 / 1350 Balance -614.08 / -864.08 -230 / -330 -190 / -190 Lab / Micro Data Result Diagrams: 04/28/22 10:10 04/26/22 22:30 Labs: Laboratory Results - last 24 hr 04/28/22 10:10: WBC 12.5 H, RBC 2.29 L, Hgb 7.1 L, Hct 23.1 L, MCV 100.9 H D, MCH 31.0, MCHC 30.7 L D, RDW Std Deviation 61.6 H, RDW Coeff of Maura 17.8 H, Plt Count 118 L, MPV 10.7, Immature Gran % (Auto) 0.800, Neut % (Auto) 85.4 H, Lymph % (Auto) 7.0 L, [place] % (Auto) 6.5, Eos % (Auto) 0.1, Baso % (Auto) 0.2, Absolute Neuts (auto) 10.7 H, Absolute Lymphs (auto) 0.88, Nucleated RBC % 0.9 Physical Exam Narrative alert, oriented x3, no apparent distress and average body habitus General Appearance: cooperative, well kempt and well developed Orientation / Consciousness: awake, oriented to person, oriented to place and oriented to time HEENT normocephalic, head/scalp atraumatic and moist oral mucous membranes Eyes PERRL, EOMs intact bilaterally and conjunctivae normal Neck supple, no JVD, thyroid normal and no carotid bruits General: trachea midline Resp normal respiratory effort, no retractions, no use of accessory muscles and clear to auscultation bilaterally Auscultation: Negative for rales, rhonchi or wheezes Cardio regular rate, regular rhythm, S1 normal heart sound, S2 normal heart sound, no murmurs, no rub and no gallops GI normal to inspection, nondistended, normoactive bowel sounds, soft to palpation, non-tender and non-distended Extremity no clubbing, cyanosis or edema Skin no rashes or lesions noted General Skin Exam: no breakdown Neuro oriented x3, CN's II-XII intact bilaterally, moves all extremities, no focal motor deficits and no sensory deficits noted Sensorium / Orientation: awake, alert, oriented to person, oriented to place and oriented to time Speech: speech normal Psych affect normal Assessment & Plan Assessment/Plan (1) Paroxysmal atrial fibrillation: (2) Gastrointestinal bleeding: PLAN: Plan 1. Acute upper gastrointestinal hemorrhage secondary to bleeding duodenal ulcer-continue IV PPI, H&H will be ordered tomorrow, if hemoglobin falls below 7 he may need packed red blood cells. #2 acute blood loss anemia secondary to acute duodenal hemorrhage from ulcer- requiring transfusion, patient got a total of 4 units of packed red blood cells, hemoglobin today is 7.1 #3 atherosclerotic heart disease-stable at this time, patient's Plavix and aspirin will be held at this time due to upper GI bleed #4 essential hypertension-patient's blood pressure medications are being held at this time #5 hyperlipidemia-patient is on Lipitor #6 paroxysmal atrial fibrillation-patient is echocardiogram showed a normal EF, he will remain on rate limiting medications, he cannot be anticoagulated due to his severe upper GI bleed. #7 acute debility-patient will go to an extended care facility for short-term rehab services, we will have to get approval for this. Total clinical time spent by myself addressing the patient's medical problems, reviewing all the data, and collaborating with patient's care team: 36 minutes Charges/Coding Visit Charges Inpatient E&M: 74139 Subs Hosp L2
[2022-04-28] MEDS: Atorvastatin Calcium 80 MG Tablet PO (20:46)
[2022-04-29] VITALS (11 sets, daily range): BP systolic 126–146; BP diastolic 50–89; PULSE 83–88; RESP 18; TEMP 37.1–38; O2SAT 92–96
[2022-04-29] MEDS: Sucralfate 1 GM Tablet PO ×4 (05:39→21:20)
[2022-04-29 05:47] LABS: Hematocrit 23.5 % (40-54); Hemoglobin 7.1 g/dL (13.0-16.5)
[2022-04-29 06:13] LABS: Anion Gap 6 (5-15); BUN 34 mg/dL (7-18); BUN/Creat Ratio 22.1 RATIO (10-20); Calcium,Total 7.8 mg/dL (8.5-10.1); Chloride 116 mmol/L (98-107); Creatinine, Serum 1.54 mg/dL (0.70-1.30); EST Glomerular Filtration Rate 46 mL/min (>60); Est Glom Filt Rate - Afr Amer 56 mL/min (>60); Estimated Creatinine Clearance 33.95 ml/min; Glucose 160 mg/dL (74-106); Potassium 3.5 mmol/L (3.5-5.1); Sodium Level 149 mmol/L (136-145)
[2022-04-29] MEDS: 0.9% Saline Lock 10 ML Syringe IV (09:54)
--- NOTE | 2022-04-29 09:56 | PCM.PN.HOSP ---
Subjective Subjective Mr. Joyce is an 81-year-old white male who presented to the emergency department on 04/24/2022 with persistent nausea and emesis and acute hematemesis with possible hematochezia. Upon presentation he had transient hypotension which resolved prior to admission and his hemoglobin was 8.[address] of the abdomen pelvis showed a urinary bladder that was distended and hyperdense fluid in the rectal vault. The patient has been on Plavix and aspirin prior to admission. GI and general surgery were consulted. A right IJ was placed on the day after admission and an EGD was performed. EGD on 04/25/2022 demonstrated no gross lesions in the esophagus, red blood in the gastric body, anterior wall of the stomach and greater curvature of the stomach with one spurting duodenal ulcer with a visible vessel. It was treated with injection and heater probe, biopsies were taken and the patient was transported back to the ICU following the procedure as he did demonstrate hemorrhagic shock. He was maintained on a Protonix drip and n.p.o. he was transition to oral Protonix 40 mg p.o. twice daily and this was recommended for 12 weeks, he is to be on Carafate 1 g 4 times daily for 4 weeks and to avoid NSAIDs aspirin and Plavix for 12 days after his biopsy which was performed on 04/25/2022. As of yesterday he was doing well overall not having any abdominal pain black stools and was tolerating his diet well. He did have some debility so family desired ECF placement at discharge. Pre-CERT was started on 04/28/2022. Patient states overall he is feeling well other than fatigue and weakness. He indicated they got him up into a chair yesterday but he was not happy about it because he was tired at that time. He indicated they need to get him up and he feels like he can do it. He is tolerating oral diet without any difficulty and having no abdominal pain. No further bloody bowel movements or hematemesis. Objective Data Objective Data Vital Signs: Vital Signs Temp Pulse Resp BP Pulse Ox O2 Del Method O2 Flow Rate 98.7 F 83 18 129/68 H 93 Room Air 2 04/29/22 03:00 04/29/22 03:00 04/29/22 03:00 04/29/22 03:00 04/29/22 07:52 04/29/22 07:52 02/03/23 03:35 Oxygen Flow Rate (L/min) 2 Oxygen Delivery Method Room Air Weight: 111.266 kg Body Mass Index (BMI) 38.7 Intake & Output: Intake and Output for Last 24 Hours 04/27/22 04/28/22 04/29/22 23:59 23:59 23:59 Intake Total 1120 / 1520 1840 / 2060 660 / 660 Output Total 1350 / 1850 1350 / 1700 650 / 650 Balance -230 / -330 490 / 360 Lab / Micro Data Result Diagrams: 04/29/22 05:35 04/29/22 05:35 Labs: Laboratory Results - last 24 hr 04/28/22 10:10: WBC 12.5 H, RBC 2.29 L, Hgb 7.1 L, Hct 23.1 L, MCV 100.9 H D, MCH 31.0, MCHC 30.7 L D, RDW Std Deviation 61.6 H, RDW Coeff of Maura 17.8 H, Plt Count 118 L, MPV 10.7, Immature Gran % (Auto) 0.800, Neut % (Auto) 85.4 H, Lymph % (Auto) 7.0 L, [place] % (Auto) 6.5, Eos % (Auto) 0.1, Baso % (Auto) 0.2, Absolute Neuts (auto) 10.7 H, Absolute Lymphs (auto) 0.88, Nucleated RBC % 0.9 04/29/22 05:35: Hgb 7.1 L, Hct 23.5 L 04/29/22 05:35: Sodium 149 H, Potassium 3.5, Chloride 116 H, Carbon Dioxide 27.0, Anion Gap 6, BUN 34 H, Creatinine 1.54 H, Estim Creat Clear Calc 33.95, Est GFR (MDRD) Af Amer 56 L, Est GFR (MDRD) Non-Af 46 L, BUN/Creatinine Ratio 22.1 H, Glucose 160 H, Calcium 7.8 L Physical Exam Const alert, oriented x3, no apparent distress and well nourished Constitutional Narrative: Elderly white male, sitting up in bed watching television, appears comfortable nontoxic HEENT head/scalp atraumatic and moist oral mucous membranes Head and Scalp: normocephalic Resp normal respiratory effort, no retractions, no use of accessory muscles and clear to auscultation bilaterally Resp Narrative: Diminished but clear Auscultation: Negative for crackles, rhonchi or wheezes Cardio regular rate, regular rhythm, S1 normal heart sound, S2 normal heart sound, no murmurs, no rub, no gallops and no clicks Cardio Narrative: Currently in normal sinus rhythm GI normal to inspection, nondistended, normoactive bowel sounds, soft to palpation and non-tender Extremity Extremity Narrative: Bilateral upper extremity edema most notably in hands, trace bilateral lower extremity edema, no clubbing or cyanosis Neuro oriented x3, moves all extremities and no focal motor deficits Speech: speech normal Psych affect normal Psych Narrative: Pleasant, appropriately interactive Assessment & Plan Assessment/Plan (1) Paroxysmal atrial fibrillation: (2) Gastrointestinal bleeding: (3) Anemia: (4) Leukocytosis: (5) Acute kidney injury: (6) Hemorrhagic shock: PLAN: Plan Hemorrhagic shock secondary to upper GI bleed -Shock is resolved Upper GI bleed secondary to duodenal ulcer -Status post EGD on 04/25/2022 with repeat EGD on 04/26/2022 -Initial showed duodenal ulcer that was spurting blood treated with injection and heater probe -Repeat EGD demonstrated normal esophagus with chronic gastritis and multiple nonbleeding duodenal ulcers that were treated with argon plasma coagulation -Patient is to remain on Protonix 40 mg p.o. twice daily for 12 weeks and Carafate 1 g p.o. 4 times daily for 4 weeks -No NSAIDs Plavix or aspirin for 12 days after biopsy with restart date of 05/09/2022 -Pathology is pending -Follow-up with GI after discharge REMY on CKD stage IIIa -Improving and close to baseline -Baseline serum creatinine appears to be between 1.1 and 1.4 -Serum creatinine on admission was 2.43 -Likely elevated secondary to hemorrhagic shock -Current serum creatinine is 1.54 -Continue to monitor -Avoid nephrotoxins as able -Continue to hold losartan Anemia-acute on chronic -Baseline hemoglobin appears to be between 8 and 10 -Current hemoglobin 7.1 but stable -Patient was given IV iron on 04/28/2022 and 04/29/2022 -No current need for transfusion -Transfuse for hemoglobin less than 7 -Continue to monitor clinically -Repeat CBC in a.m. Leukocytosis -Suspect stress response -White count has dramatically improved and almost normalized at this point -Repeat CBC in Thrombocytopenia-chronic -Baseline platelet count appears to be between 109 and 135 -Current platelet count is 118 -Might stay a little bit lower than baseline secondary to consumption with GI bleed PAF -New onset -Likely related from the stress of his GI bleed -Currently normal sinus rhythm -Echocardiogram demonstrated preserved EF -No anticoagulation at this time -Recommend anticoagulation once cleared from GI -Continue beta-redd -Patient started on amiodarone secondary to nonsustained VT Nonsustained VT -Cardiology following-appreciate input -Continue amiodarone as ordered -We will clarify amiodarone dosing at discharge as he is currently on 200 mg p.o. twice daily -Echocardiogram with preserved LV function CAD/HTN/HPL -Hold aspirin/Plavix until 05/09/2021 -Restart home Lasix today 40 mg daily -Blood pressures are improving but no marked elevations -Hold home losartan -Restart home niacin/continue statin Hypernatremia/hyperchloremia -Likely related to recent IV fluid status -IV fluids discontinued -We will trial Lasix -Repeat BMP in a.m. Hyperglycemia -Hemoglobin A1c was 5.6 on admission however the patient is anemic -Blood sugars have been somewhat elevated may be related to stress response -Continue to monitor -Would recommend repeat evaluation of A1c once hemoglobin improves History of GERD -Continue PPI as ordered KRISTY -Patient does not wear CPAP at baseline -As needed oxygen Obesity -BMI 39.6 -Recommend weight loss -Complicates treatment, prognosis, outcomes BPH -Patient on no medication -Monitor for urinary issues DVT prophylaxis -SCDs -Chemoprophylaxis contraindicated with severe GI bleed admission CODE STATUS -Full code is verified on mission Charges/Coding Visit Charges Inpatient E&M: 73486 Subs Hosp L2
[2022-04-29] MEDS: Amiodarone 200 MG Tablet PO ×2 (09:59→21:20)
[2022-04-29] MEDS: Metoprolol Tartrate 50 MG Tablet PO ×2 (09:59→21:20)
[2022-04-29 10:46] LABS: Thyroid Stim Hormone (TSH) 2.84 uIU/mL (0.358-3.74)
[2022-04-29] MEDS: Acetaminophen 325 MG Tablet 650 MG PO (16:06)
[2022-04-29 17:49] LABS: Color, Urine Yellow (Yellow); Glucose, Dipstick Normal (Normal); Ketone-Dipstick Negative (Negative); Leukocyte Esterase-Dipstick 500 /ul (Negative); Nitrite-Dipstick Positive (Negative); Occult Blood-Urine 250 /ul (Negative); Protein-Dipstick 100 mg/dl (Negative); Urine Bilirubin Dipstick Negative (Negative); Urine Clarity Cloudy (Clear); Urine Urobilinogen Normal (Normal)
--- NOTE | 2022-04-29 19:35 | RAD_ITS ---
EXAM: XR CHEST, 1 VIEW CLINICAL INDICATION: fever TECHNIQUE: Frontal view of the chest. This report was created using [employer] report generation technology. COMPARISON: 04/25/2022. FINDINGS: LUNGS AND PLEURAL SPACES: Unremarkable. No consolidation or edema. No pneumothorax. No effusion. HEART: Unremarkable. Cardiac silhouette not enlarged. MEDIASTINUM: Central airways and mediastinal contour are unremarkable. BONES/JOINTS: Unremarkable. SOFT TISSUES: Unremarkable. TUBES, LINES AND DEVICES: No change right-sided central line with the tip in the superior vena cava. RAD/Chest 1 View (Portable) IMPRESSION: 1. No change right-sided central line with the tip in the superior vena cava. 2. No acute cardiopulmonary abnormality. Electronically Signed: Honorio Marcus MD at 21:06 EST ,
--- NOTE | 2022-04-29 21:09 | PN_ITS ---
Subjective Subjective Patient complains of still being very weak and fatigued. He is not very well. He still is having low-grade fevers. Objective Data Objective Data Vital Signs: Vital Signs Temp Pulse Resp BP Pulse Ox O2 Del Method O2 Flow Rate 100.4 F H 83 18 146/89 H 92 Room Air 2 04/29/22 16:00 04/29/22 16:00 04/29/22 16:00 04/29/22 16:00 04/29/22 16:00 04/29/22 16:00 04/28/22 03:35 Oxygen Flow Rate (L/min) 2 Oxygen Delivery Method Room Air Weight: 245 lb 4.8 oz Body Mass Index (BMI) 38.7 Intake & Output: Intake and Output for Last 24 Hours 04/27/22 04/28/22 04/29/22 23:59 23:59 23:59 Intake Total 1120 / 1520 1840 / 2060 1760 / 1760 Output Total 1350 / 1850 1350 / 1700 1300 / 1300 Balance -230 / -330 490 / 360 460 / 460 Lab / Micro Data Result Diagrams: 04/29/22 05:35 04/29/22 05:35 Labs: Laboratory Results - last 24 hr 04/29/22 05:35: Hgb 7.1 L, Hct 23.5 L 04/29/22 05:35: Sodium 149 H, Potassium 3.5, Chloride 116 H, Carbon Dioxide 27.0, Anion Gap 6, BUN 34 H, Creatinine 1.54 H, Estim Creat Clear Calc 33.95, Es t GFR (MDRD) Af Amer 56 L, Est GFR (MDRD) Non-Af 46 L, BUN/Creatinine Ratio 22.1 H, Glucose 160 H, Calcium 7.8 L 04/29/22 05:35: TSH 2.84 04/29/22 17:15: Urine Color Yellow, Urine Clarity Cloudy, Urine pH 7.0, Ur Specific [place] 1.010, Urine Protein 100 H, Urine Glucose (UA) Normal, Urine Ketones Negative, Urine Occult Blood 250 H, Urine Nitrite Positive H, Urine Bilirubin Negative, Urine Urobilinogen Normal, Ur Leukocyte Esterase 500 H Radiography Diagnostic Testing: Radiology Impression Chest X-Ray 04/29/22 19:35 IMPRESSION: 1. No change right-sided central line with the tip in the superior vena cava. 2. No acute cardiopulmonary abnormality. Electronically Signed: Honorio Marcus MD at 21:06 EST , Physical Exam Const alert, oriented x3, no apparent distress and well nourished HEENT head/scalp atraumatic and moist oral mucous membranes Head and Scalp: normocephalic Resp normal respiratory effort, no retractions, no use of accessory muscles and clear to auscultation bilaterally Resp Narrative: Diminished but clear Auscultation: Negative for crackles, rhonchi or wheezes Cardio regular rate, regular rhythm, S1 normal heart sound, S2 normal heart sound, no murmurs, no rub, no gallops and no clicks Cardio Narrative: Currently in normal sinus rhythm GI normal to inspection, nondistended, normoactive bowel sounds, soft to palpation and non-tender Extremity Extremity Narrative: Bilateral upper extremity edema most notably in hands, trace bilateral lower extremity edema, no clubbing or cyanosis Neuro oriented x3, moves all extremities and no focal motor deficits Speech: speech normal Psych affect normal Psych Narrative: Pleasant, appropriately interactive Assessment & Plan Assessment/Plan (1) Gastrointestinal bleeding: PLAN: Acute GI bleed thought to be secondary to medications. He has been on octreotide and Protonix drip for 24 hours. Recommend is to transitioned to oral Protonix 40 mg p.o. twice daily and Carafate 1 g p.o. 4 times daily. Continue to trend hemoglobin and hematocrit. He will need repeat upper endoscopy as an outpatient for surveillance of his peptic ulcer disease. If he is still here on Sunday then he should have a repeat upper endoscopy to make sure that everything is healing due to his decreased hemoglobin and persistent fevers. PLAN: Plan His hemoglobin seems to be stable. I would start him on iron ferrous sulfate 325 mg p.o. 3 times daily along with Colace 100 mg p.o. twice daily. Once he gets his repeat upper endoscopy as an outpatient we can discuss him going back on anticoagulation or antiplatelet therapy. Charges/Coding Visit Charges Inpatient E&M: 63578 Subs Hosp L3
[2022-04-29] MEDS: Pantoprazole Sodium 40 MG Tablet PO (21:20)
[2022-04-29] MEDS: Atorvastatin Calcium 80 MG Tablet PO (21:20)
[2022-04-30] VITALS (14 sets, daily range): BP systolic 119–148; BP diastolic 44–98; PULSE 68–103; RESP 18–20; TEMP 36.4–37.9; O2SAT 92–97; BMI 40.0
[2022-04-30] MEDS: Sucralfate 1 GM Tablet PO ×4 (05:18→21:40)
[2022-04-30 06:17] LABS: Absolute Lymphocyte Count 1.67 X10^3/uL (0.83-4.51); Absolute Neutrophil Count 8.7 X10^3/uL (2.0-7.7); Basophil# 0.03 X10^3/uL; Basophil% 0.3 % (0-1); Eosinophil# 0.21 X10^3/uL; Eosinophils% 1.8 % (0-5); Hematocrit 22.6 % (40-54); Lymphocyte # 1.67 X10^3/ul (0.83-4.51); Lymphocyte % 13.9 % (19-41); Mean Corpuscular Hgb 31.4 pg (27.0-32.0); Mean Corpuscular Volume 101.3 fL (80-94); Mean Platelet Vol. 11.3 fl (6.2-12.0); Neutrophil # 8.66 X10^3/uL (2.7-7.7); Neutrophil % 72.2 % (47-70); Platelet Count 124 K/mm3 (150-450); RBC Distribution Width CV 17.8 % (11.6-14.6); RBC Distribution Width SD 63.6 fl (35.1-43.9); Red Blood Count 2.23 M/mm3 (4.6-6.2)
[2022-04-30 06:58] LABS: ALB/GLOB Ratio 0.6 RATIO (0.9-2.4); AST(SGOT) 49 U/L (15-37); Alanine Aminotransfer ALT/SGPT 111 U/L (16-61); Alkaline Phosphatase 64 U/L (45-117); Anion Gap 6 (5-15); BUN 28 mg/dL (7-18); BUN/Creat Ratio 19.7 RATIO (10-20); Calcium,Total 7.6 mg/dL (8.5-10.1); Chloride 114 mmol/L (98-107); Creatinine, Serum 1.42 mg/dL (0.70-1.30); EST Glomerular Filtration Rate 51 mL/min (>60); Est Glom Filt Rate - Afr Amer 62 mL/min (>60); Estimated Creatinine Clearance 36.82 ml/min; Globulin 3.3 g/dL (2.2-4.2); Glucose 127 mg/dL (74-106); Magnesium 2.4 mg/dL (1.6-2.6); Phosphorus 2.1 mg/dL (2.5-4.9); Potassium 3.3 mmol/L (3.5-5.1); Protein, Total 5.3 g/dL (6.4-8.2); Sodium Level 145 mmol/L (136-145)
[2022-04-30] MEDS: Pantoprazole Sodium 40 MG Tablet PO ×2 (08:45→21:40)
[2022-04-30] MEDS: Amiodarone 200 MG Tablet PO ×2 (08:45→21:40)
[2022-04-30] MEDS: Potassium Chloride Oral Tablet 20 MEQ 40 MEQ PO (08:45)
[2022-04-30] MEDS: Metoprolol Tartrate 50 MG Tablet PO ×2 (08:45→21:40)
[2022-04-30] MEDS: Na Biphos/Potassium Phosphate PACKET 1 PACKET PO ×2 (08:46→21:39)
[2022-04-30] MEDS: Furosemide 40 MG Tablet PO (08:53)
[2022-04-30] MEDS: Ceftriaxone 1 GM/50 ML BAG IV (10:40)
[2022-04-30] MEDS: 0.9% Saline Lock 10 ML Syringe IV (10:40)
--- NOTE | 2022-04-30 15:28 | PN.HOSP_ITS ---
Subjective Subjective Patient states he is having multiple bowel movements however when I discussed this with nursing she said that she states that he is having some intermittent mucousy discharge with flatus but not having any significant diarrhea. Patient does not like the food so his oral intake has not been great. Patient is peter nt that he is not ready to go anywhere further but is unable to identify what needs need to be addressed further here prior to discharge. He did have some transient fevers overnight and we did collect a UA a chest x-ray and blood cultures were obtained however no antibiotics were initiated. There is some discussion of a repeat EGD tomorrow to reassess for healing. Objective Data Objective Data Vital Signs: Vital Signs Temp Pulse Resp BP Pulse Ox O2 Del Method O2 Flow Rate 98.2 F 73 20 H 121/68 H 93 Room Air 2 04/30/22 14:49 04/30/22 14:49 04/30/22 14:49 04/30/22 14:49 04/30/22 14:49 04/30/22 14:49 04/28/22 03:35 Oxygen Flow Rate (L/min) 2 Oxygen Delivery Method Room Air Weight: 112.6 kg Body Mass Index (BMI) 38.7 Intake & Output: Intake and Output for Last 24 Hours 04/28/22 04/29/22 04/30/22 23:59 23:59 23:59 Intake Total 1840 / 2060 1760 / 1900 700 / 700 Output Total 1350 / 1700 1300 / 1600 1350 / 1350 Balance 490 / 360 460 / 300 -650 / -650 Lab / Micro Data Result Diagrams: 04/30/22 05:12 04/30/22 05:12 Labs: Laboratory Results - last 24 hr 04/29/22 17:15: Urine Color Yellow, Urine Clarity Cloudy, Urine pH 7.0, Ur Specific [place] 1.010, Urine Protein 100 H, Urine Glucose (UA) Normal, Urine Ketones Negative, Urine Occult Blood 250 H, Urine Nitrite Positive H, Urine Bili gastelum Negative, Urine Urobilinogen Normal, Ur Leukocyte Esterase 500 H 04/30/22 05:12: WBC 12.0 H, RBC 2.23 L, Hgb 7.0 L, Hct 22.6 L, MCV 101.3 H, MCH 31.4, MCHC 31.0 L, RDW Std Deviation 63.6 H, RDW Coeff of Maura 17.8 H, Plt Count 124 L, MPV 11.3, Immature Gran % (Auto) 1.800 H, Neut % (Auto) 72.2 H, Lymph % (Auto) 13.9 L, [place] % (Auto) 10.0, Eos % (Auto) 1.8, Baso % (Auto) 0.3, Absolute Neuts (auto) 8.7 H, Absolute Lymphs (auto) 1.67, Nucleated RBC % 1.0 04/30/22 05:12: Sodium 145, Potassium 3.3 L, Chloride 114 H, Carbon Dioxide 25.0, Anion Gap 6, BUN 28 H, Creatinine 1.42 H, Estim Creat Clear Calc 36.82, Est GFR (MDRD) Af Amer 62, Est GFR (MDRD) Non-Af 51 L, BUN/Creatinine Ratio 19.7, Glucose 127 H, Calcium 7.6 L, Phosphorus 2.1 L, Magnesium 2.4, Total Bilirubin 0.50, AST 49 H, ALT 111 H, Alkaline Phosphatase 64, Total Protein 5.3 L, Albumin 2.0 L, Globulin 3.3, Albumin/Globulin Ratio 0.6 L 04/30/22 09:25: Blood Type O POSITIVE, Antibody Screen NEGATIVE, Crossmatch See Detail Radiography Diagnostic Testing: Radiology Impression Chest X-Ray 04/29/22 19:35 IMPRESSION: 1. No change right-sided central line with the tip in the superior vena cava. 2. No acute cardiopulmonary abnormality. Electronically Signed: Honorio Marcus MD at 21:06 EST , Physical Exam Const alert, oriented x3, no apparent distress and average body habitus Constitutional Narrative: Elderly white male, sitting up in bed watching television, appears comfortable nontoxic HEENT normocephalic, head/scalp atraumatic and moist oral mucous membranes Resp normal respiratory effort, no retractions, no use of accessory muscles and clear to auscultation bilaterally Resp Narrative: Diminished but clear Auscultation: Negative for crackles, rales, rhonchi or wheezes Cardio regular rate, regular rhythm, S1 normal heart sound, S2 normal heart sound, no murmurs, no rub, no gallops and no clicks Cardio Narrative: Currently in normal sinus rhythm GI normal to inspection, nondistended, normoactive bowel sounds, soft to palpation, non-tender and non-distended Extremity no clubbing, cyanosis or edema Extremity Narrative: Bilateral upper extremity edema most notably in hands improving, trace lower EXTR edema has been resolved, no clubbing or cyanosis Neuro oriented x3, moves all extremities and no focal motor deficits Speech: speech normal Psych affect normal Psych Narrative: Patient somewhat grouchy today Assessment & Plan Assessment/Plan (1) Paroxysmal atrial fibrillation: (2) Gastrointestinal bleeding: (3) Anemia: (4) Leukocytosis: (5) Acute kidney injury: (6) Hemorrhagic shock: PLAN: Plan Hemorrhagic shock secondary to upper GI bleed -Shock is resolved Upper GI bleed secondary to duodenal ulcer -Status post EGD on 04/25/2022 with repeat EGD on 04/26/2022 -Initial showed duodenal ulcer that was spurting blood treated with injection and heater probe -Repeat EGD demonstrated normal esophagus with chronic gastritis and multiple nonbleeding duodenal ulcers that were treated with argon plasma coagulation -Patient is to remain on Protonix 40 mg p.o. twice daily for 12 weeks and Carafate 1 g p.o. 4 times daily for 4 weeks -No NSAIDs Plavix or aspirin for 12 days after biopsy with restart date of 05/09/2022 -Pathology is pending -Possible EGD tomorrow morning to reassess healing per GI documentation -Follow-up with GI after discharge REMY on CKD stage IIIa -Improving and close to baseline -Baseline serum creatinine appears to be between 1.1 and 1.4 -Serum creatinine on admission was 2.43 -Likely elevated secondary to hemorrhagic shock -Current serum creatinine is 1.54 -Continue to monitor -Avoid nephrotoxins as able -Continue to hold losartan Anemia-acute on chronic -Baseline hemoglobin appears to be between 8 and 10 -Current hemoglobin 7.0 down from 7.1 yesterday which I would consider stable -Since he is somewhat still fatigued and his hemoglobin did drop fairly dramatically since admission I will go ahead and give him 1 unit today and reassess his hemoglobin in the morning -Patient was given IV iron on 04/28/2022 and 04/29/2022 -Start oral iron with ferrous sulfate 325 mg 3 times daily and Colace 100 mg p.o. twice daily per GI recommendations -Transfuse for hemoglobin less or equal to than 7 -Continue to monitor clinically -Repeat CBC in a.m. Leukocytosis -Suspect stress response -White count has dramatically improved and almost normalized at this point -White count 12.5-12.0 in the last 24 hours -Patient did have some low-grade temperatures yesterday with T-max of 100.4 -UA is suggestive of infection with positive nitrites, blood, and leuk esterase -Urine culture obtained -Patient started on ceftriaxone -Blood cultures pending -Chest x-ray showed no acute infiltrate -Repeat CBC in Thrombocytopenia-chronic -Baseline platelet count appears to be between 109 and 135 -Current platelet count is 124,000 which shows slight trend up from 118,000 yesterday -Might stay a little bit lower than baseline secondary to consumption with GI bleed PAF -New onset -Likely related from the stress of his GI bleed -Remains in normal sinus rhythm -Echocardiogram demonstrated preserved EF -No anticoagulation at this time -Recommend anticoagulation once cleared from GI -Continue beta-redd -Patient started on amiodarone secondary to nonsustained VT Nonsustained VT -Cardiology following-appreciate input -Continue amiodarone as ordered -We will clarify amiodarone dosing at discharge as he is currently on 200 mg p.o. twice daily -Echocardiogram with preserved LV function -No nonsustained VT in the last 24 hours CAD/HTN/HPL -Hold aspirin/Plavix until 05/09/2021 -Continue home Lasix today 40 mg daily -Blood pressures are improving but no marked elevations -Hold home losartan -Restart home niacin/continue statin Hypernatremia/hyperchloremia -Likely related to recent IV fluid status -Resolving -Continue home Lasix -Repeat BMP in a.m. Hyperglycemia -Hemoglobin A1c was 5.6 on admission however the patient is anemic -Blood sugars have been somewhat elevated may be related to stress response -Continue to monitor -Would recommend repeat evaluation of A1c once hemoglobin improves History of GERD -Continue PPI as ordered KRISTY -Patient does not wear CPAP at baseline -As needed oxygen Obesity -BMI 39.6 -Recommend weight loss -Complicates treatment, prognosis, outcomes BPH -Patient on no medication -Monitor for urinary issues DVT prophylaxis -SCDs -Chemoprophylaxis contraindicated with severe GI bleed admission CODE STATUS -Full code is verified on mission Charges/Coding Visit Charges Inpatient E&M: 31479 Subs Hosp L2
[2022-04-30] MEDS: Ferrous Sulfate 325 MG Tablet PO (16:12)
[2022-04-30] MEDS: Acetaminophen 325 MG Tablet 650 MG PO (17:14)
[2022-04-30] MEDS: Docusate Sodium 100 MG Capsule PO (21:39)
[2022-04-30] MEDS: Atorvastatin Calcium 80 MG Tablet PO (21:40)
[2022-05-01] VITALS (14 sets, daily range): BP systolic 99–143; BP diastolic 45–78; PULSE 78–99; RESP 18; TEMP 36.6–37.3; O2SAT 94–99
[2022-05-01 05:35] LABS: Absolute Lymphocyte Count 1.92 X10^3/uL (0.83-4.51); Absolute Neutrophil Count 9.4 X10^3/uL (2.0-7.7); Basophil# 0.02 X10^3/uL; Basophil% 0.2 % (0-1); Eosinophil# 0.23 X10^3/uL; Eosinophils% 1.8 % (0-5); Hematocrit 24.8 % (40-54); Hemoglobin 7.6 g/dL (13.0-16.5); Lymphocyte # 1.92 X10^3/ul (0.83-4.51); Mean Corp Hgb Conc 30.6 g/dL (32-36); Mean Corpuscular Hgb 30.4 pg (27.0-32.0); Mean Corpuscular Volume 99.2 fL (80-94); Mean Platelet Vol. 10.9 fl (6.2-12.0); Monocyte# 0.99 X10^3/uL; Monocyte% 7.7 % (0-10); NRBC Flagged by Analyzer 0.2 % (0-5); Neutrophil # 9.41 X10^3/uL (2.7-7.7); Neutrophil % 73.3 % (47-70); Platelet Count 142 K/mm3 (150-450); RBC Distribution Width SD 62.4 fl (35.1-43.9); White Blood Count 12.8 K/mm3 (4.4-11.0)
[2022-05-01 05:48] LABS: Anion Gap 5 (5-15); BUN 29 mg/dL (7-18); BUN/Creat Ratio 22.3 RATIO (10-20); Calcium,Total 7.8 mg/dL (8.5-10.1); Chloride 114 mmol/L (98-107); EST Glomerular Filtration Rate 56 mL/min (>60); Est Glom Filt Rate - Afr Amer 68 mL/min (>60); Estimated Creatinine Clearance 40.22 ml/min; Glucose 125 mg/dL (74-106); Potassium 3.2 mmol/L (3.5-5.1); Sodium Level 146 mmol/L (136-145)
--- NOTE | 2022-05-01 05:55 | EKG12_ITS ---
Test Reason : AM EKG Blood Pressure : / mmHG Vent. Rate : 071 BPM Atrial Rate : 071 BPM P-R Int : 260 ms QRS Dur : 088 ms QT Int : 430 ms P-R-T Axes : 015 039 057 degrees QTc Int : 467 ms Sinus rhythm with marked sinus arrhythmia with 1st degree A-V block with occasional Premature ventric ular complexes Otherwise normal ECG When compared with ECG of 26-APR-2022 08:49, Sinus rhythm has replaced Atrial fibrillation Confirmed by ALLEY MOTA, EMILY ([id number]), news video editor FREDERICK QUINTANILLA ([id number]) on 05/02/2022 9:05:52 AM Referred By: Confirmed By:EMILY HAGER MD
[2022-05-01 06:11] LABS: International Normalized Ratio 1.3; Prothrombin Time (Protime)PT. 16.2 SECONDS (11.7-14.9)
[2022-05-01 06:12] LABS: Partial Thromboplast Time 48.5 Seconds (24.1-36.2)
[2022-05-01] MEDS: Lactated Ringers 1,000 ML 15 ML IV (10:55)
--- NOTE | 2022-05-01 12:56 | OP.EGD_ITS ---
Patient Name: Lisandro Joyce Procedure Date: 05/01/2022 12:37 PM Date of : 1940 Age: 81 Procedure: Upper GI endoscopy Indications: Iron deficiency anemia, Coffee-ground emesis Providers: Bernardo Major DO Medicines: Monitored Anesthesia Care Patient Profile: This is an 81 year old male. Refer to note in patient chart for documentation of history and physical. Patient has symptoms of acute epigastric abdominal pain and chronic nausea. He is status post EGD for treatment of bleeding within the past month. Complications: No immediate complications. Procedure: Pre-Anesthesia Assessment: - Prior to the procedure, a History and Physical was performed, and patient medications and allergies were reviewed. The patient is competent. The risks and benefits of the procedure and the sedation options and risks were discussed with the patient. All questions were answered and informed consent was obtained. Patient identification and proposed procedure were verified by the physician in the pre-procedure area. Mental Status Examination: alert and oriented. Airway Examination: normal oropharyngeal airway and neck mobility. Respiratory Examination: clear to auscultation. CV Examination: normal. Prophylactic Antibiotics: The patient does not require prophylactic antibiotics. Prior Anticoagulants: The patient has taken no previous anticoagulant or antiplatelet agents. ASA Grade Assessment: II - A patient with mild systemic disease. After reviewing the risks and benefits, the patient was deemed in satisfactory condition to undergo the procedure. The anesthesia plan was to use moderate sedation / analgesia (conscious sedation). Immediately prior to administration of medications, the patient was re-assessed for adequacy to receive sedatives. The heart rate, respiratory rate, oxygen saturations, blood pressure, adequacy of pulmonary ventilation, and response to care were monitored throughout the procedure. The physical status of the patient was re-assessed after the procedure. After obtaining informed consent, the endoscope was passed under direct vision. Throughout the procedure, the patient's blood pressure, pulse, and oxygen saturations were monitored continuously. The gastroscope was introduced through the mouth, and advanced to the second part of duodenum. The upper GI endoscopy was accomplished without difficulty. The patient tolerated the procedure well. 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 The maximum longitudinal extent of these mucosal changes was 2 cm in length. Mucosa was biopsied with a cold forceps for histology at intervals of 1 cm in the lower third of the esophagus. A medium-sized hiatal hernia was present. No other significant abnormalities were identified in a careful examination of the stomach. One oozing cratered duodenal ulcer with a visible vessel was found in the duodenal bulb. The lesion was 6 mm in largest dimension. Coagulation for hemostasis using heater probe was successful. Coagulation for hemostasis using argon plasma at 0.3 liters/minute and 20 reddy was successful. Estimated blood loss was minimal. 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 Biopsied. - Medium-sized hiatal hernia. - One oozing duodenal ulcer with a visible vessel. Treated with a heater probe. Treated with argon plasma coagulation (APC). Recommendation: - [facility]. - Resume previous diet today. - Use Protonix (pantoprazole) 40 mg PO BID for 3 months. - Use sucralfate tablets 1 gram PO QID. - Continue present medications. Procedure Code(s): --- Professional --- 07626, 59, Esophagogastroduodenoscopy, flexible, transoral; with control of bleeding, any method 23659, 51, Esophagogastroduodenoscopy, flexible, transoral; with biopsy, single or multiple CPT copyright 2017 [employer]. All rights reserved. The codes documented in this report are preliminary and upon sound engineer review may be revised to meet current compliance requirements. Bernardo Major DO 05/01/2022 12:55:59 PM This report has been signed electronically. Number of Addenda: 0 Note Initiated On: 05/01/2022 12:37 PM
--- NOTE | 2022-05-01 12:56 | OP.CCLET_ITS ---
05/01/2022 Rajesh Caal Re : Upper GI endoscopy procedure for Lisandro Joyce Richar Ten This procedure was performed on Sunday, May 01, 2022. 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 Biopsied. - Medium-sized hiatal hernia. - One oozing duodenal ulcer with a visible vessel. Treated with a heater probe. Treated with argon plasma coagulation (APC). Recommendations : - [facility]. - Resume previous diet today. - Use Protonix (pantoprazole) 40 mg PO BID for 3 months. - Use sucralfate tablets 1 gram PO QID. - Continue present medications. My findings are described in the full procedure note, which is enclosed. If I can be of further assistance, please feel free to contact me at . Sincerely, Bernardo Friend, 05/01/2022 12:55:59 PM This report has been signed electronically.
[2022-05-01] MEDS: 0.9% Saline Lock 10 ML Syringe IV ×2 (14:46→17:27)
--- NOTE | 2022-05-01 14:58 | CASEMGMT ---
Social Work SW spoke with [facility] and precert has not been obtained at this time. Updated clinicals faxed to [facility] for insurance review. Plan: [facility], pending precert PIETER Lauren
--- NOTE | 2022-05-01 16:48 | PN.HOSP_ITS ---
Objective Data Objective Data Vital Signs: Vital Signs Temp Pulse Resp BP Pulse Ox O2 Del Method O2 Flow Rate 97.9 F 86 18 138/54 H 98 Room Air 2 05/01/22 14:50 05/01/22 14:50 05/01/22 14:50 05/01/22 14:50 05/01/22 14:50 05/01/22 14:50 04/28/22 03:35 Oxygen Flow Rate (L/min) 2 Oxygen Delivery Method Room Air Weight: 113.1 kg Body Mass Index (BMI) 40.0 Intake & Output: Intake and Output for Last 24 Hours 04/29/22 04/30/22 05/01/22 23:59 23:59 23:59 Intake Total 1760 / 1900 1480 / 1480 0 / 0 Output Total 1300 / 1600 1750 / 1750 400 / 400 Balance 460 / 300 -270 / -270 -400 / -400 Lab / Micro Data Result Diagrams: 05/01/22 05:25 05/01/22 05:25 Labs: Laboratory Results - last 24 hr 04/30/22 09:25: Crossmatch See Detail 05/01/22 05:25: WBC 12.8 H, RBC 2.50 L, Hgb 7.6 L, Hct 24.8 L, MCV 99.2 H, MCH 30.4, MCHC 30.6 L, RDW Std Deviation 62.4 H, RDW Coeff of Maura 18.0 H, Plt Count 142 L, MPV 10.9, Immature Gran % (Auto) 2.000 H, Neut % (Auto) 73.3 H, Lymph % (Auto) 15.0 L, [place] % (Auto) 7.7, Eos % (Auto) 1.8, Baso % (Auto) 0.2, Absolute Neuts (auto) 9.4 H, Absolute Lymphs (auto) 1.92, Nucleated RBC % 0.2 05/01/22 05:25: Sodium 146 H, Potassium 3.2 L, Chloride 114 H, Carbon Dioxide 27.0, Anion Gap 5, BUN 29 H, Creatinine 1.30, Estim Creat Clear Calc 40.22, Est GFR (MDRD) Af Amer 68, Est GFR (MDRD) Non-Af 56 L, BUN/Creatinine Ratio 22.3 H, Glucose 125 H, Calcium 7.8 L 05/01/22 05:25: PT 16.2 H, INR 1.3, APTT 48.5 H Micro: Microbiology 04/30/22 14:50 Urine, Clean Catch Urine Culture - Preliminary Staphylococcus aureus Physical Exam Const alert, oriented x3, no apparent distress, average body habitus and well nourished Constitutional Narrative: Elderly white male, sitting up in bed watching television, appears comfortable nontoxic HEENT normocephalic, head/scalp atraumatic and moist oral mucous membranes HEENT Narrative: Mallampati 3 Resp normal respiratory effort, no retractions, no use of accessory muscles and clear to auscultation bilaterally Resp Narrative: Diminished but clear Auscultation: Negative for crackles, rales, rhonchi or wheezes Cardio regular rate, regular rhythm, S1 normal heart sound, S2 normal heart sound, no murmurs, no rub, no gallops and no clicks Cardio Narrative: Currently in normal sinus rhythm GI normal to inspection, nondistended, normoactive bowel sounds, soft to palpation, non-tender and non-distended Extremity no clubbing, cyanosis or edema Extremity Narrative: Bilateral upper extremity edema most notably in hands improving, trace lower edema has been resolved, no clubbing or cyanosis Skin Skin Narrative: Right IJ in place-dressing is clean dry and intact Neuro oriented x3, moves all extremities and no focal motor deficits Speech: speech normal Psych affect normal Psych Narrative: More pleasant today Assessment & Plan Assessment/Plan (1) Paroxysmal atrial fibrillation: (2) Gastrointestinal bleeding: (3) Anemia: (4) Leukocytosis: (5) Acute kidney injury: (6) Hemorrhagic shock: (7) UTI (urinary tract infection): PLAN: Plan Hemorrhagic shock secondary to upper GI bleed -Shock is resolved Upper GI bleed secondary to duodenal ulcer -Status post EGD on 04/25/2022 with repeat EGD on 04/26/2022 -Initial showed duodenal ulcer that was spurting blood treated with injection and heater probe -Repeat EGD demonstrated normal esophagus with chronic gastritis and multiple nonbleeding duodenal ulcers that were treated with argon plasma coagulation -EGD done today on 05/01/2022 and showed esophageal mucosal changes suspicious for short segment Carrasquillo's esophagus which were biopsied, medium size hiatal hernia and 1 due to oozing duodenal ulcer with visible vessel that was treated with heater probe and argon plasma coagulation -Patient is to remain on Protonix 40 mg p.o. twice daily for 12 weeks and Carafate 1 g p.o. 4 times daily for 4 weeks -No NSAIDs Plavix or aspirin for 12 days after biopsy with restart date of 05/13/2022 -Pathology is pending -Follow-up with GI after discharge--> okay for discharge per GI REMY on CKD stage IIIa -REMY has now resolved -Baseline serum creatinine appears to be between 1.1 and 1.4 -Serum creatinine on admission was 2.43 -Likely elevated secondary to hemorrhagic shock -Current serum creatinine is 1.30 -Continue to monitor -Avoid nephrotoxins as able -Continue to hold losartan Anemia-acute on chronic -Baseline hemoglobin appears to be between 8 and 10 -Patient did receive 1 unit packed red blood cells on 04/30/2022 -Hemoglobin this morning 7.6 -EGD did show oozing ulcer and this was addressed -Repeat CBC in a.m. -Patient was given IV iron on 04/28/2022 and 04/29/2022 -Continue oral iron with ferrous sulfate 325 mg 3 times daily and Colace 100 mg p.o. twice daily per GI recommendations -Transfuse for hemoglobin less or equal to than 7 -Continue to monitor clinically -Repeat CBC in a.m. Staph aureus UTI -Patient with mild persistent white count elevation therefore infectious work-up was pursued -Also had low-grade temps with Tmax of 100.4 -Blood cultures remain pending -Chest x-ray was unremarkable -Urine cultures showing Staph aureus at greater than 100,000 CFU -Discontinue ceftriaxone and start vancomycin -Consult infectious disease given the organism Thrombocytopenia-chronic -Baseline platelet count appears to be between 109 and 135 -Current platelet count is 142,000 which shows slight trend up from under 24,000 yesterday PAF -New onset -Likely related from the stress of his GI bleed -Remains in normal sinus rhythm -Echocardiogram demonstrated preserved EF -No anticoagulation at this time -Recommend anticoagulation once cleared from GI -Continue beta-redd -Patient started on amiodarone secondary to nonsustained VT Nonsustained VT -Cardiology following-appreciate input -Continue amiodarone as ordered -We will clarify amiodarone dosing at discharge as he is currently on 200 mg p.o. twice daily prior to discharge -Echocardiogram with preserved LV function -No nonsustained VT in the last 24 hours CAD/HTN/HPL -Hold aspirin/Plavix until 05/13/2021 -Continue home Lasix today 40 mg daily -Blood pressures are improving but no marked elevations -Hold home losartan -Restart home niacin/continue statin Hypernatremia/hyperchloremia -Slight increase compared to yesterday -Resolving -Continue home Lasix -Repeat BMP in a.m. Hyperglycemia -Hemoglobin A1c was 5.6 on admission however the patient is anemic -Blood sugars have been somewhat elevated may be related to stress response -Continue to monitor -Would recommend repeat evaluation of A1c once hemoglobin improves History of GERD -Continue PPI as ordered KRISTY -Patient does not wear CPAP at baseline -As needed oxygen Obesity -BMI 39.6 -Recommend weight loss -Complicates treatment, prognosis, outcomes BPH -Patient on no medication -Monitor for urinary issues DVT prophylaxis -SCDs -Chemoprophylaxis contraindicated with severe GI bleed admission CODE STATUS -Full code is verified on admission Charges/Coding Visit Charges Inpatient E&M: 66085 Subs Hosp L2 Reason for Visit Reason for Visit: Diagnoses Anemia, unspecified (04/24/22) Elevated white blood cell count, unspecified (04/24/22) Essential (primary) hypertension (04/24/22) Other ventricular tachycardia (04/24/22) Paroxysmal atrial fibrillation (04/24/22) Gastrointestinal hemorrhage, unspecified (04/24/22) Acute kidney failure, unspecified (04/24/22) Other shock (04/24/22) Presence of coronary angioplasty implant and graft (04/24/22)
[2022-05-01] MEDS: Potassium Chloride 20mEq/100mL 20 MEQ/100 ML IV.SOLN. 100 MEQ IV BOLUS ×2 (17:18→19:24)
[2022-05-01] MEDS: Ferrous Sulfate 325 MG Tablet PO (17:27)
[2022-05-01] MEDS: Sucralfate 1 GM Tablet PO ×2 (17:27→23:48)
--- NOTE | 2022-05-01 20:24 | PCM.RX.CS ---
Consult Pharmacy has been consulted to manage selected antiobiotic: Vancomycin Type of Consult: New start Suspected Infection: Other Prior Doses of Antibiotics Received/Current Regimen: Received initial dose of ~15mg/kg (1750mg) iv x 1 on 05.01.22 @1830. Labs: Sodium 146 mmol/L (136-145) H 05/01/22 05:25 Potassium 3.2 mmol/L (3.5-5.1) L 05/01/22 05:25 Chloride 114 mmol/L (98-107) H 05/01/22 05:25 Carbon Dioxide 27.0 mmol/L (21.0-32.0) 05/01/22 05:25 Anion Gap 5 (5-15) 05/01/22 05:25 BUN 29 mg/dL (7-18) H 05/01/22 05:25 Creatinine 1.30 mg/dL (0.70-1.30) 05/01/22 05:25 Est GFR (MDRD) Af Amer 68 mL/min (>60) 05/01/22 05:25 Est GFR (MDRD) Non-Af 56 mL/min (>60) L 05/01/22 05:25 BUN/Creatinine Ratio 22.3 RATIO (10-20) H 05/01/22 05:25 Glucose 125 mg/dL (74-106) H 05/01/22 05:25 Microbiology: Microbiology 04/30/22 14:50 Urine, Clean Catch Urine Culture - Preliminary Staphylococcus aureus Weight used for dosin kg Estimated Creatinine Clearance: 53 ml/min Pharmacy Plan for Drug Dosing: Using an adjusted body weight of 83.5kg, CrCl calculated to be ~53 ml/min. Will start dosing at 1250mg iv q12h per protocol. Trough level has been ordered for before 4th total dose on 05.03.22. Pharmacy Service will continue to monitor and adjust dosing as required. Follow-Up Labs: Trough Vancomycin - 05.03.22 @0530 before 0600 dose
[2022-05-01] MEDS: Docusate Sodium 100 MG Capsule PO (23:48)
[2022-05-01] MEDS: Atorvastatin Calcium 80 MG Tablet PO (23:50)
[2022-05-01] MEDS: Pantoprazole Sodium 40 MG Tablet PO (23:50)
[2022-05-01] MEDS: Amiodarone 200 MG Tablet PO (23:53)
[2022-05-01] MEDS: Metoprolol Tartrate 50 MG Tablet PO (23:54)
[2022-05-02] VITALS (7 sets, daily range): BP systolic 109–144; BP diastolic 69–85; PULSE 74–92; RESP 16–20; TEMP 36.3–37.2; O2SAT 95–98
[2022-05-02] MEDS: Sucralfate 1 GM Tablet PO ×3 (06:21→16:08)
[2022-05-02 07:59] LABS: Absolute Lymphocyte Count 1.95 X10^3/uL (0.83-4.51); Absolute Neutrophil Count 8.2 X10^3/uL (2.0-7.7); Basophil# 0.02 X10^3/uL; Basophil% 0.2 % (0-1); Eosinophil# 0.31 X10^3/uL; Eosinophils% 2.7 % (0-5); Hematocrit 24.6 % (40-54); Hemoglobin 7.6 g/dL (13.0-16.5); Lymphocyte # 1.95 X10^3/ul (0.83-4.51); Lymphocyte % 17.1 % (19-41); Mean Corp Hgb Conc 30.9 g/dL (32-36); Mean Corpuscular Hgb 30.6 pg (27.0-32.0); Mean Corpuscular Volume 99.2 fL (80-94); Mean Platelet Vol. 10.5 fl (6.2-12.0); Monocyte# 0.75 X10^3/uL; Monocyte% 6.6 % (0-10); NRBC Flagged by Analyzer 0 % (0-5); Neutrophil # 8.19 X10^3/uL (2.7-7.7); Neutrophil % 71.9 % (47-70); Platelet Count 151 K/mm3 (150-450); RBC Distribution Width CV 18.2 % (11.6-14.6); RBC Distribution Width SD 63.8 fl (35.1-43.9); Red Blood Count 2.48 M/mm3 (4.6-6.2); White Blood Count 11.4 K/mm3 (4.4-11.0)
[2022-05-02 08:15] LABS: Anion Gap 6 (5-15); BUN 25 mg/dL (7-18); BUN/Creat Ratio 22.9 RATIO (10-20); Calcium,Total 7.8 mg/dL (8.5-10.1); Chloride 115 mmol/L (98-107); Creatinine, Serum 1.09 mg/dL (0.70-1.30); EST Glomerular Filtration Rate 69 mL/min (>60); Est Glom Filt Rate - Afr Amer 83 mL/min (>60); Estimated Creatinine Clearance 47.96 ml/min; Glucose 117 mg/dL (74-106); Magnesium 2.4 mg/dL (1.6-2.6); Phosphorus 2.1 mg/dL (2.5-4.9); Potassium 3.2 mmol/L (3.5-5.1); Sodium Level 146 mmol/L (136-145)
--- NOTE | 2022-05-02 09:00 | PCM.PROGNOTE ---
Subjective Subjective Patient is doing well and his hemoglobin seems to be holding stable. He is not having any signs or symptoms of bleeding at this time. Objective Data Objective Data Vital Signs: Vital Signs Temp Pulse Resp BP Pulse Ox O2 Del Method O2 Flow Rate 97.8 F 92 18 109/72 96 Room Air 2 05/02/22 12:00 05/02/22 12:00 05/02/22 12:00 05/02/22 12:00 05/02/22 12:00 05/02/22 14:00 04/28/22 03:35 Oxygen Flow Rate (L/min) 2 Oxygen Delivery Method Room Air Weight: 250 lb 0.067 oz Body Mass Index (BMI) 40.0 Intake & Output: Intake and Output for Last 24 Hours 04/30/22 05/01/22 05/02/22 23:59 23:59 23:59 Intake Total 1480 / 1480 1160 / 1160 870.5 / 870.5 Output Total 1750 / 1750 700 / 1200 1450 / 1450 Balance -270 / -270 460 / -40 -579.5 / -579.5 Lab / Micro Data Result Diagrams: 05/02/22 07:47 05/02/22 07:47 Labs: Laboratory Results - last 24 hr 05/02/22 07:47: WBC 11.4 H, RBC 2.48 L, Hgb 7.6 L, Hct 24.6 L, MCV 99.2 H, MCH 30.6, MCHC 30.9 L, RDW Std Deviation 63.8 H, RDW Coeff of Maura 18.2 H, Plt Count 151, MPV 10.5, Immature Gran % (Auto) 1.500 H, Neut % (Auto) 71.9 H, Lymph % (Auto) 17.1 L, [place] % (Auto) 6.6, Eos % (Auto) 2.7, Baso % (Auto) 0.2, Absolute Neuts (auto) 8.2 H, Absolute Lymphs (auto) 1.95, Nucleated RBC % 0 05/02/22 07:47: Sodium 146 H, Potassium 3.2 L, Chloride 115 H, Carbon Dioxide 25.0, Anion Gap 6, BUN 25 H, Creatinine 1.09, Estim Creat Clear Calc 47.96, Est GFR (MDRD) Af Amer 83, Est GFR (MDRD) Non-Af 69, BUN/Creatinine Ratio 22.9 H, Glucose 117 H, Calcium 7.8 L, Phosphorus 2.1 L, Magnesium 2.4 Micro: Microbiology 04/29/22 18:00 Blood Culture (Wb) - Anticubital Left Blood Culture - Preliminary No growth in 48 hours. 04/29/22 17:47 Blood Culture (Wb) - Anticubital Left Blood Culture - Preliminary No growth in 48 hours. 04/30/22 14:50 Urine, Clean Catch Urine Culture - Preliminary Staphylococcus aureus Physical Exam Const alert, oriented x3, no apparent distress, average body habitus and well nourished Constitutional Narrative: Elderly white male, sitting up in bed watching television, appears comfortable, nontoxic, occupational health nursing director at bedside General Appearance: cooperative, comfortable, well kempt and well developed Orientation / Consciousness: awake, oriented to person, oriented to place and oriented to time Exam Limitations: no limitations Nutritional Appearance: morbidly obese HEENT normocephalic, head/scalp atraumatic and moist oral mucous membranes HEENT Narrative: Mallampati 3, no thrush Eyes PERRL, EOMs intact bilaterally and conjunctivae normal Neck no lymphadenopathy, supple and no JVD Neck Narrative: Trachea midline, no thyroid enlargement, right IJ in place-dressing is intact clean and dry Resp normal respiratory effort, no retractions, no use of accessory muscles and clear to auscultation bilaterally Resp Narrative: Diminished but clear Auscultation: Negative for crackles, rales, rhonchi or wheezes Cardio regular rate, regular rhythm, S1 normal heart sound, S2 normal heart sound, no murmurs, no rub, no gallops and no clicks GI normal to inspection, nondistended, normoactive bowel sounds, soft to palpation, non-tender and non-distended Extremity no clubbing, cyanosis or edema Extremity Narrative: Trace to 1+ bilateral upper extremity edema most notably in hands improving, trace lower edema has been resolved, no clubbing or cyanosis Skin no rashes or lesions noted, skin turgor normal and no jaundice Neuro oriented x3, CN's II-XII intact bilaterally, moves all extremities and no focal motor deficits Neuro Narrative: Significant generalized weakness with no focal deficits Sensorium / Orientation: awake, alert, oriented to person, oriented to place and oriented to time Speech: speech normal Psych affect normal Psych Narrative: Very pleasant, appropriately interactive Assessment & Plan Assessment/Plan (1) Paroxysmal atrial fibrillation: (2) Gastrointestinal bleeding: (3) Anemia: (4) Leukocytosis: (5) Acute kidney injury: (6) Hemorrhagic shock: (7) UTI (urinary tract infection): PLAN: Plan Hemorrhagic shock secondary to upper GI bleed -Shock is resolved Upper GI bleed secondary to duodenal ulcer -Status post EGD on 04/25/2022 with repeat EGD on 04/26/2022 -Initial showed duodenal ulcer that was spurting blood treated with injection and heater probe -Repeat EGD demonstrated normal esophagus with chronic gastritis and multiple nonbleeding duodenal ulcers that were treated with argon plasma coagulation -EGD done today on 05/01/2022 and showed esophageal mucosal changes suspicious for short segment Carrasquillo's esophagus which were biopsied, medium size hiatal hernia and 1 due to oozing duodenal ulcer with visible vessel that was treated with heater probe and argon plasma coagulation -Patient is to remain on Protonix 40 mg p.o. twice daily for 12 weeks and Carafate 1 g p.o. 4 times daily for 4 weeks -No NSAIDs Plavix or aspirin for 12 days after biopsy with restart date of 05/13/2022 -Pathology is pending okay for discharge Anemia-acute on chronic -Baseline hemoglobin appears to be between 8 and 10 -Patient did receive 1 unit packed red blood cells on 04/30/2022 -Hemoglobin this morning 7.6 -EGD did show oozing ulcer and this was addressed -Repeat CBC in a.m. -Patient was given IV iron on 04/28/2022 and 04/29/2022 -Continue oral iron with ferrous sulfate 325 mg 3 times daily and Colace 100 mg p.o. twice daily -Transfuse for hemoglobin less or equal to than 7 -Continue to monitor clinically -Repeat CBC in a.m. Charges/Coding Visit Charges Inpatient E&M: 01265 Subs Hosp L3
[2022-05-02] MEDS: Metoprolol Tartrate 50 MG Tablet PO (09:02)
[2022-05-02] MEDS: Pantoprazole Sodium 40 MG Tablet PO (09:02)
[2022-05-02] MEDS: Furosemide 40 MG Tablet PO (09:02)
[2022-05-02] MEDS: Docusate Sodium 100 MG Capsule PO (09:03)
[2022-05-02] MEDS: Amiodarone 200 MG Tablet PO (09:03)
[2022-05-02] MEDS: Ferrous Sulfate 325 MG Tablet PO ×3 (09:03→16:08)
[2022-05-02] MEDS: Potassium Chloride Oral Tablet 20 MEQ 60 MEQ PO (09:55)
--- NOTE | 2022-05-02 10:38 | CASEMGMT ---
Insurance is requesting current physician note and vitals. SW sent this information to [facility] via [employer]. Arcelia WALTERS
--- NOTE | 2022-05-02 10:39 | CON.PCM.ID_ITS ---
Assessment & Plan Assessment/Plan (1) UTI (urinary tract infection): PLAN: REMY resolved. Dalal out 2/3. Staph aureus in ucx, paired bcx neg at 48h, so low suspicion for hematogenous source. On vanc. If he is able to leave today, would give 5 more days po linezolid 600mg bid. Will follow, thank you, d/w Dr. Choi HPI Consult Data Date of Consult: 05/02/22 HPI Narrative Reason for Consultation: uti HPI Narrative: SOULEYMANE DUGGAN, is a 81 M who presented 04/24/22 with n/v, hematemesis, bright red blood in stool. Transferred to icu, scope done x3 for hemorrhagic shock complicated by REMY. Dalal removed 2/. In evening of 04/29, developed fever, leukocytosis. Started on ceftriaxone 04/30. Now changed to vanc due to staph aureus in ucx. Feeling ok, no fever, no dysuria, no abd pain. Full ROS performed and neg except as noted above. FORMERLY [facility], [facility] Medical History Atherosclerosis of ramona coronary artery of ramona heart without angina pectoris BPH (benign prostatic hyperplasia) Cardiac arrest (11/2015) COVID-19 virus detected (03/21/21) Essential (primary) hypertension GERD (gastroesophageal reflux disease) Hyperlipidemia Obesity Obstructive sleep apnea Syncope and collapse Home Medications aspirin 81 mg tablet,delayed release (Adult Aspirin Regimen) 81 mg PO QDAY 03/22/17 [History Last Taken Unknown] atenolol 50 mg tablet 50 mg PO BID #180 tabs 05/03/18 [Rx Last Taken Unknown] losartan 100 mg tablet 100 mg PO DAILY #90 tabs 05/03/18 [Rx Last Taken Unknown] omega-3 fatty acids 1,000 mg capsule (Fish Oil Concentrate) 1,000 mg PO DAILY 09/30/20 [History Last Taken Unknown] furosemide 40 mg tablet (Lasix) 40 mg PO DAILY #90 tabs 06/07/21 [Rx Last Taken Unknown] nitroglycerin 0.4 mg sublingual tablet 0.4 mg sublingual Q5-15M PRN chest pain #25 tabs 06/07/21 [Rx Last Taken Unknown] atorvastatin 80 mg tablet 80 mg PO QDAY #90 tabs 07/05/21 [Rx Last Taken Unknown] cinnamon bark 500 mg capsule (Cinnamon) 500 mg PO DAILY 12/08/21 [History Last Taken Unknown] clopidogrel 75 mg tablet (Plavix) 75 mg PO QDAY #90 tabs 12/08/21 [Rx Last Taken Unknown] niacin 500 mg tablet 500 mg PO DAILY 12/08/21 [History Last Taken Unknown] Allergy/AdvReac Type Severity Reaction Status Date / Time No Known Allergies Allergy Verified 12/08/21 13:44 Family History Father CAD (coronary artery disease) Heart disease Hypertension Myocardial infarction Brother CAD (coronary artery disease) Heart disease Hypertension Myocardial infarction Mother CAD (coronary artery disease) Heart disease Hypertension Myocardial infarction Other Diabetes Surgical History History of coronary artery stent placement (12/07/15) History of hemorrhoidectomy (1972) History of right hip replacement (09/2013) Social History household members: spouse Smoking Status: Former smoker how long ago did patient quit smoking: Quit in his 30s, smoked since teen (~ 15-20 years), < 1 ppd day. alcohol intake: former substance use type: does not use caffeine: Yes Type: tea Number of servings: 2 Physical Exam Const alert, oriented x3 and no apparent distress General Appearance: cooperative HEENT normocephalic and head/scalp atraumatic Eyes PERRL and EOMs intact bilaterally Neck supple and No nodes Resp normal air movement and clear to auscultation bilaterally Cardio regular rate and regular rhythm GI soft to palpation, non-tender and non-distended Extremity General Extremity: Negative for edema Skin no rashes or lesions noted Neuro CN's II-XII intact bilaterally Lab / Micro Data Attestation: I reviewed the patient's lab results. Result Diagrams: 05/02/22 07:47 05/02/22 07:47 Labs: Laboratory Results - last 24 hr 05/02/22 07:47: WBC 11.4 H, RBC 2.48 L, Hgb 7.6 L, Hct 24.6 L, MCV 99.2 H, MCH 30.6, MCHC 30.9 L, RDW Std Deviation 63.8 H, RDW Coeff of Maura 18.2 H, Plt Count 151, MPV 10.5, Immature Gran % (Auto) 1.500 H, Neut % (Auto) 71.9 H, Lymph % (Auto) 17.1 L, Tucker % (Auto) 6.6, Eos % (Auto) 2.7, Baso % (Auto) 0.2, Absolute Neuts (auto) 8.2 H, Absolute Lymphs (auto) 1.95, Nucleated RBC % 0 05/02/22 07:47: Sodium 146 H, Potassium 3.2 L, Chloride 115 H, Carbon Dioxide 25.0, Anion Gap 6, BUN 25 H, Creatinine 1.09, Estim Creat Clear Calc 47.96, Est GFR (MDRD) Af Amer 83, Est GFR (MDRD) Non-Af 69, BUN/Creatinine Ratio 22.9 H, Glucose 117 H, Calcium 7.8 L, Phosphorus 2.1 L, Magnesium 2.4 Micro: Microbiology 04/29/22 18:00 Blood Culture (Wb) - Anticubital Left Blood Culture - Preliminary No growth in 48 hours. 04/29/22 17:47 Blood Culture (Wb) - Anticubital Left Blood Culture - Preliminary No growth in 48 hours. 04/30/22 14:50 Urine, Clean Catch Urine Culture - Preliminary Staphylococcus aureus
--- NOTE | 2022-05-02 14:53 | TREXTCAR_ITS ---
Diet Diet Order/Speech Therapy: 05/01/22 14:42 Diet: Regular - General cardiac Is pt able to select menu?: Yes Routine Orders/Code Status Suppository Frequency: Daily PRN O2 Frequency: PRN Keep PO Greater than or Equal to (%): 92 Routine Lab Work: CBC (Repeat CBC on 05/05/2022) and BMP (Repeat BMP on 05/05/2022) Code Status: Full Code Therapies Weight Bearing: Full weight bearing Physical Therapy: Eval and Treat Occupational Therapy: Eval and Treat Problem/Diagnosis (1) UTI (urinary tract infection): Status: Acute Code(s): N39.0 - Urinary tract infection, site not specified Allergies/Procedures Done in Hospital Allergies No Known Allergies Allergy (Verified 12/08/21 13:44) Procedures: 2-D Echocardiogram, Blood transfusion, Central line placement and EGD (X3) Type of Care/Length of Stay Estimated LOS: Convalescent Care Less Than 30 days Type of Care Needed: Skilled Rehab Potential: Good Prognosis: Fair Additional Orders/Day of Discharge Day of Discharge: 05/02/22 Discharge Plan Admission Admit Date/Time: 04/24/22 21:01 Attending Provider: Diann Choi Primary Care Provider: Rajesh Caal PRIMARY SCHOOL TEACHER Consulting Providers: Liberty Dan ; Sonia Vega ; Enrike Peterson ; Papa Morgan ; Brandon Silva ; Lisandro Stearns Discharge Orders/Prescriptions Prescriptions: No Action aspirin [Adult Aspirin Regimen] 81 mg tablet,delayed release (DR/EC) 81 mg PO QDAY omega-3 fatty acids [Fish Oil Concentrate] 1,000 mg capsule 1,000 mg PO DAILY furosemide [Lasix] 40 mg tablet 40 mg PO DAILY Qty: 90 3RF Hold Instructions: Pt refuses the test nitroglycerin 0.4 mg tablet, sublingual 0.4 mg SUBLINGUAL Q5-15M PRN (Reason: chest pain) Qty: 25 3RF cinnamon bark [Cinnamon] 500 mg capsule 500 mg PO DAILY niacin 500 mg tablet 500 mg PO DAILY clopidogrel [Plavix] 75 mg tablet 75 mg PO QDAY Qty: 90 3RF atenolol 50 mg tablet 50 mg PO BID Qty: 180 3RF losartan 100 mg tablet 100 mg PO DAILY Qty: 90 3RF atorvastatin 80 mg tablet 80 mg PO QDAY Qty: 90 3RF Referrals / Follow Up: Rajesh Caal PRIMARY SCHOOL TEACHER, PRIMARY SCHOOL TEACHER-C [Primary Care Provider] -
--- NOTE | 2022-05-02 14:56 | CASEMGMT ---
Patient was approved and will go to [facility] today. SW notified psychiatric secretary, RN, physician, and patient. Arcelia WALTRES
--- NOTE | 2022-05-02 14:59 | PCM.DC.SUM ---
Providers Date of Admission: 04/24/22 Date of Discharge: 05/02/22 Primary Care Physician: Rajesh Caal, KOLBY-Liv Consultations 04/24/22 22:14 Consult: Gastroenterology Routine Consulting Provider: Sallie Gastroenterology Reason for Consult: Acute GI bleed, acute blood loss anemia EMERGENT Consult: No Notified: Yes Date Notified: 04/24/22 Time Notified: 21:47 Method of Notification: Text Consult: General Surgery Routine Consulting Provider: Sonia Vega Reason for Consult: GI bleed, acute, blood loss anemia EMERGENT Consult: No Notified: Yes Date Notified: 04/24/22 Time Notified: 21:47 Method of Notification: Text Consult: Electronics Inspector / Pulmonary Medicine Routine Consulting Provider: Enrike Peterson Reason for Consult: Acute GI bleed, acute blood loss anemia EMERGENT Consult: No Notified: Yes Date Notified: 04/24/22 Time Notified: 21:47 Method of Notification: Text 04/26/22 20:00 Consult: Cardiology Routine Consulting Provider: Papa Morgan Reason for Consult: Vtach and Afib EMERGENT Consult: No Notified: Yes Date Notified: 04/26/22 Time Notified: 20:00 Method of Notification: Text 05/01/22 16:53 Consult: Infectious Disease Routine Consulting Provider: Lisandro Stearns Reason for Consult: staph aureus UTI EMERGENT Consult: No Notified: Yes Date Notified: 05/01/22 Time Notified: 17:06 Method of Notification: Answering Service Reason For Visit: ACUTE GI BLEED, ACUTE BLOOD LOSS ANEMIA Diagnosis Discharge Diagnosis (1) UTI (urinary tract infection): Status: Acute Code(s): N39.0 - Urinary tract infection, site not specified Medications at Discharge Home Medications aspirin 81 mg tablet,delayed release (Adult Aspirin Regimen) 81 mg PO QDAY 03/22/17 omega-3 fatty acids 1,000 mg capsule (Fish Oil Concentrate) 1,000 mg PO DAILY 09/30/20 furosemide 40 mg tablet (Lasix) 40 mg PO DAILY #90 tabs 06/07/21 nitroglycerin 0.4 mg sublingual tablet 0.4 mg sublingual Q5-15M PRN chest pain #25 tabs 06/07/21 atorvastatin 80 mg tablet 80 mg PO QDAY #90 tabs 07/05/21 cinnamon bark 500 mg capsule (Cinnamon) 500 mg PO DAILY 12/08/21 clopidogrel 75 mg tablet (Plavix) 75 mg PO QDAY #90 tabs 12/08/21 niacin 500 mg tablet 500 mg PO DAILY 12/08/21 amiodarone 200 mg tablet 200 mg PO DAILY #0 tabs 05/02/22 docusate sodium 100 mg capsule 100 mg PO BID #0 caps 05/02/22 ferrous sulfate 325 mg (65 mg iron) tablet (FeroSul) 325 mg PO TIDCM #0 tabs 05/02/22 linezolid 600 mg tablet (Zyvox) 600 mg PO BID #10 tabs 05/02/22 metoprolol tartrate 50 mg tablet 50 mg PO BID #0 tabs 05/02/22 pantoprazole 40 mg tablet,delayed release 40 mg PO BID #60 tabs 05/02/22 sucralfate 1 gram tablet 1 g PO 1HR_ACHS #0 tabs 05/02/22 Hospital Course Procedures 2-D Echocardiogram, Central line placement, EGD (X3) and EKG Summary of Care Provided Minutes Spent on Discharge: 42 Hospital Course: Mr. Joyce is an 81-year-old white male who presented to the emergency department on 04/24/2022 with persistent nausea and emesis that developed into hematemesis and hematochezia as well. Upon presentation the patient had transient hypotension which resolved prior to admission and his hemoglobin was found to be 8.3. CT of the abdomen pelvis showed a urinary bladder that was distended and hyperdense fluid in the rectal vault. The patient was on aspirin and Plavix prior to admission. GI and general surgery were consulted. A right IJ was placed on the day after admission and an EGD was performed. EGD on 04/25/2022 showed no gross lesion in the esophagus, red blood in the gastric body, anterior wall of the stomach, and greater curvature of the stomach with 1 spurting duodenal ulcer with a visible vessel. It was treated with injection and heater probe and biopsies were taken. The patient was transported back to the ICU following the previous seizure as he did develop some hemorrhagic shock. He was maintained on an IV Protonix drip as well as an octreotide drip and had n.p.o. status. His hemoglobin appeared to stabilize and he was transition to oral Protonix 40 mg p.o. twice daily as well as Carafate 1 g 4 times daily for 4 weeks and he was instructed to avoid NSAIDs, aspirin, and Plavix for 12 to 14 days after his biopsy. Repeat EGD EGD was done on 04/26/2022 which showed normal esophagus, chronic gastritis and multiple nonbleeding duodenal ulcers that were treated with argon plasma coagulation. Patient developed slight hemoglobin drop but stabilized in the low 7's. He was having some fatigue therefore we did give him 1 unit packed red blood cells at which time his hemoglobin improved to the upper sevens. 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 Again he was to maintain on Protonix 40 mg p.o. twice daily and Carafate 1 g p.o. 4 times daily. The Protonix was recommended for 12 weeks and the Carafate was recommended for at least 4 weeks. We will go ahead and hold his aspirin and Plavix and avoid NSAIDs until 05/15/2022. Pathology is pending. Per discussion with GI they felt he was stable for discharge and his hemoglobin did stabilize and on the day of discharge was stable at 7.6. He was noted to have a low-grade temperature over the weekend and a persistent leukocytosis for which blood cultures and urine culture were obtained as well as a chest x-ray. Chest x-ray was unremarkable. Blood cultures were negative at 48 hours, however his urine culture was positive for Staph aureus. He did have a Dalal catheter during his hospital stay which was discontinued about 4 days prior to discharge. He was placed on vancomycin initially and transition to Zyvox at discharge. ID was consulted and recommended continuing the Zyvox for 5 days at 600 mg p.o. twice daily. He did develop some REMY secondary to ischemic ATN with his hemorrhagic shock where his serum creatinine peaked at 2.48 however serum creatinine returned to baseline at 1.3 (baseline 1.1-1.4) by the time of discharge and he was tolerating his home diuretics at Lasix 40 mg daily. He did have some nonsustained VT with new atrial fibrillation that started during his acute events while hospitalized. It is suspected that his PAF was related to acute stress. He was placed on amiodarone 200 mg p.o. twice daily which was down titrated to 200 mg daily at the time of discharge. Anticoagulation for his PAF was contraindicated at this time and will need to be reevaluated at a future time after repeat EGD is performed at GIs discretion. He had no further events of nonsustained VT within 72 hours of discharge. Again his aspirin and Plavix will be held until 05/15/2021. We will discontinue his home losartan and his atenolol was transferred position to metoprolol. He did have some slight hypernatremia and hyperchloremia. I do recommend a repeat BMP and CBC be done on 05/05/2022. He will need to follow-up with cardiology, Dr. Morgan, within 1 month; Dr. Major from gastroenterology, within 1 month, and his primary care physician within 1 month. He was discharged to the skilled facility in stable condition as physical and Occupational Therapy felt that he needed ongoing strengthening prior to discharge home. Discharge diagnoses: Hemorrhagic shock secondary to upper GI bleed-resolved Upper GI bleed secondary to duodenal ulcer-stabilized Acute blood loss anemia REMY-resolved CKD stage IIIa Chronic anemia with baseline hemoglobin of 8-10 Staph aureus UTI Chronic thrombocytopenia PAF-new onset Nonsustained VT-resolved CAD Hypertension Hyperlipidemia Hyponatremia Hyperchloremia Hyperglycemia History of GERD KRISTY Obesity BPH Physical Exam Const alert, oriented x3, no apparent distress, average body habitus and well nourished Constitutional Narrative: Elderly white male, sitting up in bed watching television, appears comfortable, nontoxic, nursing consultant at bedside General Appearance: cooperative, comfortable, well kempt and well developed Orientation / Consciousness: awake, oriented to person, oriented to place and oriented to time Exam Limitations: no limitations Nutritional Appearance: morbidly obese HEENT normocephalic, head/scalp atraumatic and moist oral mucous membranes HEENT Narrative: Mallampati 3, no thrush Eyes PERRL, EOMs intact bilaterally and conjunctivae normal Neck no lymphadenopathy, supple and no JVD Neck Narrative: Trachea midline, no thyroid enlargement, right IJ in place-dressing is intact clean and dry Resp normal respiratory effort, no retractions, no use of accessory muscles and clear to auscultation bilaterally Resp Narrative: Diminished but clear Auscultation: Negative for crackles, rales, rhonchi or wheezes Cardio regular rate, regular rhythm, S1 normal heart sound, S2 normal heart sound, no murmurs, no rub, no gallops and no clicks GI normal to inspection, nondistended, normoactive bowel sounds, soft to palpation, non-tender and non-distended Extremity no clubbing, cyanosis or edema Extremity Narrative: Trace to 1+ bilateral upper extremity edema most notably in hands improving, trace lower edema has been resolved, no clubbing or cyanosis Skin no rashes or lesions noted, skin turgor normal and no jaundice Neuro oriented x3, CN's II-XII intact bilaterally, moves all extremities and no focal motor deficits Neuro Narrative: Significant generalized weakness with no focal deficits Sensorium / Orientation: awake, alert, oriented to person, oriented to place and oriented to time Speech: speech normal Psych affect normal Psych Narrative: Very pleasant, appropriately interactive Weight / BMI Weight Weight: 113.4 kg Body Mass Index (BMI) 40.0 ABG / Lab / Microbiology Data Result Diagrams: 05/02/22 07:47 05/02/22 07:47 Laboratory: Laboratory Results - last 24 hr 05/02/22 07:47: WBC 11.4 H, RBC 2.48 L, Hgb 7.6 L, Hct 24.6 L, MCV 99.2 H, MCH 30.6, MCHC 30.9 L, RDW Std Deviation 63.8 H, RDW Coeff of Maura 18.2 H, Plt Count 151, MPV 10.5, Immature Gran % (Auto) 1.500 H, Neut % (Auto) 71.9 H, Lymph % (Auto) 17.1 L, [place] % (Auto) 6.6, Eos % (Auto) 2.7, Baso % (Auto) 0.2, Absolute Neuts (auto) 8.2 H, Absolute Lymphs (auto) 1.95, Nucleated RBC % 0 05/02/22 07:47: Sodium 146 H, Potassium 3.2 L, Chloride 115 H, Carbon Dioxide 25.0, Anion Gap 6, BUN 25 H, Creatinine 1.09, Estim Creat Clear Calc 47.96, Est GFR (MDRD) Af Amer 83, Est GFR (MDRD) Non-Af 69, BUN/Creatinine Ratio 22.9 H, Glucose 117 H, Calcium 7.8 L, Phosphorus 2.1 L, Magnesium 2.4 Microbiology: Microbiology 04/29/22 18:00 Blood Culture (Wb) - Anticubital Left Blood Culture - Preliminary No growth in 48 hours. 04/29/22 17:47 Blood Culture (Wb) - Anticubital Left Blood Culture - Preliminary No growth in 48 hours. 04/30/22 14:50 Urine, Clean Catch Urine Culture - Preliminary Staphylococcus aureus D/C Instructions Discharge Diet: Low fat / Low cholesterol Meaningful Use Info Meaningful Use Diagnoses (Choose all that apply): None applicable Discharge Plan Admission Admit Date/Time: 04/24/22 21:01 Primary Reason for Your Visit: Hematemesis/hematochezia Attending Provider: Diann Choi Primary Care Provider: Rajesh Caal NP Consulting Providers: Liberty Dan ; Sonia Vega ; Enrike Peterson ; Papa Morgan ; Brandon Silva ; Lisandro Sterans Discharge Orders/Prescriptions Prescriptions: New sucralfate 1 gram Tablet 1 g PO 1HR_ACHS Qty: 0 0RF Rx Instructions: Needs to continue indefinitely until seen by gastroenterology and follow-up pantoprazole 40 mg Tablet,Delayed Release (Dr/Ec) 40 mg PO BID Qty: 60 0RF Rx Instructions: Needs to continue indefinitely until followed up with gastroenterology ferrous sulfate [FeroSul] 325 mg (65 mg iron) Tablet 325 mg PO TIDCM Qty: 0 0RF metoprolol tartrate 50 mg Tablet 50 mg PO BID Qty: 0 0RF amiodarone 200 mg Tablet 200 mg PO DAILY Qty: 0 0RF docusate sodium 100 mg Capsule 100 mg PO BID Qty: 0 0RF linezolid [Zyvox] 600 mg tablet 600 mg PO BID Qty: 10 0RF Rx Instructions: To complete 5 more days of treatment Continued omega-3 fatty acids [Fish Oil Concentrate] 1,000 mg capsule 1,000 mg PO DAILY furosemide [Lasix] 40 mg tablet 40 mg PO DAILY Qty: 90 3RF Hold Instructions: Pt refuses the test nitroglycerin 0.4 mg tablet, sublingual 0.4 mg SUBLINGUAL Q5-15M PRN (Reason: chest pain) Qty: 25 3RF cinnamon bark [Cinnamon] 500 mg capsule 500 mg PO DAILY niacin 500 mg tablet 500 mg PO DAILY atorvastatin 80 mg tablet 80 mg PO QDAY Qty: 90 3RF Held aspirin [Adult Aspirin Regimen] 81 mg tablet,delayed release (DR/EC) 81 mg PO QDAY Hold Instructions: Resume on 05/15/22. clopidogrel [Plavix] 75 mg tablet 75 mg PO QDAY Qty: 90 3RF Hold Instructions: Resume on 05/15/22. Discontinued atenolol 50 mg tablet 50 mg PO BID Qty: 180 3RF losartan 100 mg tablet 100 mg PO DAILY Qty: 90 3RF Referrals / Follow Up: Papa Morgan MD [Med Staff - Active Staff] - Within 1 Month Bernardo Major DO [Med Staff - Active Staff] - Within 1 Month Rajesh Caal NP, AGRICULTURE LABORER-C [Primary Care Provider] - Within 1 Month Disposition Disposition (needs filled in before D/C Order can be placed): [facility] Facility Charges/Coding Visit Charges Inpatient E&M: 76963 SNF Disch >30 Min
--- NOTE | 2022-05-02 15:27 | CASEMGMT ---
[facility]ASS called Physicians and arranged for patient to get picked up at 6p via wheelchair. CASS notified RN, patient, confidential secretary, and Martine at [facility]. [facility]ASS completed a 7000 in [facility]. Orders were sent to [facility] via [facility]. Plan: d/c to [facility] under skilled level of care on a convalescent stay. Physicians will transport patient via wheelchair van. Arcelia WALTERS
--- NOTE | 2022-05-02 15:49 | PHA.DC.MR ---
Pharmacy Service has performed discharge medication reconciliation for this patient. The patient's discharge medication list was reviewed for discrepancies and discrepancies were resolved. Home Medications aspirin 81 mg tablet,delayed release (Adult Aspirin Regimen) 81 mg PO QDAY 03/22/17 omega-3 fatty acids 1,000 mg capsule (Fish Oil Concentrate) 1,000 mg PO DAILY 09/30/20 furosemide 40 mg tablet (Lasix) 40 mg PO DAILY #90 tabs 06/07/21 nitroglycerin 0.4 mg sublingual tablet 0.4 mg sublingual Q5-15M PRN chest pain #25 tabs 06/07/21 atorvastatin 80 mg tablet 80 mg PO QDAY #90 tabs 07/05/21 cinnamon bark 500 mg capsule (Cinnamon) 500 mg PO DAILY 12/08/21 clopidogrel 75 mg tablet (Plavix) 75 mg PO QDAY #90 tabs 12/08/21 niacin 500 mg tablet 500 mg PO DAILY 12/08/21 amiodarone 200 mg tablet 200 mg PO DAILY #0 tabs 05/02/22 docusate sodium 100 mg capsule 100 mg PO BID #0 caps 05/02/22 ferrous sulfate 325 mg (65 mg iron) tablet (FeroSul) 325 mg PO TIDCM #0 tabs 05/02/22 linezolid 600 mg tablet (Zyvox) 600 mg PO BID #10 tabs 05/02/22 metoprolol tartrate 50 mg tablet 50 mg PO BID #0 tabs 05/02/22 pantoprazole 40 mg tablet,delayed release 40 mg PO BID #60 tabs 05/02/22 sucralfate 1 gram tablet 1 g PO 1HR_ACHS #0 tabs 05/02/22
--- NOTE | 2022-05-02 16:55 | NURSING ---
Report called to [facility] nurse
== END 2022-05-02 18:58 | disposition skilled nursing facility (03) | DRG 377 ==
LOC: ED 21:05 → ICU 21:31 → PCU 04-27 14:52
PROVIDERS: Anesthesiology; Internal Medicine; Internal Medicine Critical Care Medicine; Internal Medicine Gastroenterology; Admitting Provider Family Medicine; Emergency Provider Emergency Medicine; PCP Nurse Practitioner Family; Visit Provider Internal Medicine
PROC: 0DJD8ZZ Inspection of Lower Intestinal Tract, Via Natural or Artificial Opening Endoscopic (ICD-10-PCS; CPT 45378; principal; 2022-04-25 06:00)
PROC: 0DJ08ZZ Inspection of Upper Intestinal Tract, Via Natural or Artificial Opening Endoscopic (ICD-10-PCS; CPT 43235; principal; 2022-04-26 12:40)
DX: K26.4 Chronic or unspecified duodenal ulcer with hemorrhage (principal); R57.8 Other shock; N17.0 Acute kidney failure with tubular necrosis; I13.0 Hypertensive heart and chronic kidney disease with heart failure and stage 1 through stage 4 chronic kidney disease, or unspecified chronic kidney disease; E87.0 Hyperosmolality and hypernatremia; E87.1 Hypo-osmolality and hyponatremia; I50.32 Chronic diastolic (congestive) heart failure; I47.20 Ventricular tachycardia, unspecified; D62 Acute posthemorrhagic anemia; N39.0 Urinary tract infection, site not specified; D69.6 Thrombocytopenia, unspecified; I48.0 Paroxysmal atrial fibrillation; N18.31 Chronic kidney disease, stage 3a; I25.10 Atherosclerotic heart disease of native coronary artery without angina pectoris; E78.5 Hyperlipidemia, unspecified; G47.33 Obstructive sleep apnea (adult) (pediatric); K21.9 Gastro-esophageal reflux disease without esophagitis; E87.8 Other disorders of electrolyte and fluid balance, not elsewhere classified; D72.829 Elevated white blood cell count, unspecified; K44.9 Diaphragmatic hernia without obstruction or gangrene; K22.70 Barrett's esophagus without dysplasia; I25.2 Old myocardial infarction; Z68.39 Body mass index [BMI] 39.0-39.9, adult; K29.51 Unspecified chronic gastritis with bleeding; N40.0 Benign prostatic hyperplasia without lower urinary tract symptoms; B95.61 Methicillin susceptible Staphylococcus aureus infection as the cause of diseases classified elsewhere; T50.905A Adverse effect of unspecified drugs, medicaments and biological substances, initial encounter; R73.9 Hyperglycemia, unspecified; E66.9 Obesity, unspecified; Z68.38 Body mass index [BMI] 38.0-38.9, adult; Z79.82 Long term (current) use of aspirin; Z79.02 Long term (current) use of antithrombotics/antiplatelets; Z79.899 Other long term (current) drug therapy; Z87.891 Personal history of nicotine dependence; Z86.16 Personal history of COVID-19; Z95.5 Presence of coronary angioplasty implant and graft
CPT/HCPCS: 36415; 71045; 74176; 80048; 80053; 81001; 81002; 82009; 83036; 83735; 84100; 84443; 85014; 85018; 85025; 85610; 85730; 86850; 86900; 86901; 86920; 86922; 87040; 87077; 87086; 87088; 87186; 93005; 93306; 94668; 94762; 97110; 97116; 97162; 97166; 97530; 97535; 99285; J7030; J7040; J7050; J7120; P9016; P9040; A4216; C1751; J1940; J2405; J2916; J3490

== ENCOUNTER → 2022-06-08 | Outpatient (CLI) | payer MEDICARE, SELFPAY ==
[2022-06-08 10:56] LABS: Absolute Lymphocyte Count 2.71 X10^3/uL (0.83-4.51); Absolute Neutrophil Count 4.2 X10^3/uL (2.0-7.7); Basophil# 0.04 X10^3/uL; Basophil% 0.5 % (0-1); Eosinophil# 0.28 X10^3/uL; Eosinophils% 3.5 % (0-5); Hematocrit 36.5 % (40-54); Hemoglobin 11.2 g/dL (13.0-16.5); Lymphocyte # 2.71 X10^3/ul (0.83-4.51); Lymphocyte % 33.7 % (19-41); Mean Corp Hgb Conc 30.7 g/dL (32-36); Mean Corpuscular Hgb 31.1 pg (27.0-32.0); Mean Corpuscular Volume 101.4 fL (80-94); Mean Platelet Vol. 10.1 fl (6.2-12.0); Monocyte# 0.77 X10^3/uL; Monocyte% 9.6 % (0-10); NRBC Flagged by Analyzer 0 % (0-5); Neutrophil # 4.21 X10^3/uL (2.7-7.7); Neutrophil % 52.5 % (47-70); Platelet Count 174 K/mm3 (150-450); RBC Distribution Width CV 16.7 % (11.6-14.6); RBC Distribution Width SD 62.4 fl (35.1-43.9)
[2022-06-08 11:41] LABS: Anion Gap 8 (5-15); BUN 16 mg/dL (7-18); BUN/Creat Ratio 12.5 RATIO (10-20); Calcium,Total 9.4 mg/dL (8.5-10.1); Chloride 106 mmol/L (98-107); Creatinine, Serum 1.28 mg/dL (0.70-1.30); EST Glomerular Filtration Rate 57 mL/min (>60); Est Glom Filt Rate - Afr Amer 69 mL/min (>60); Glucose 93 mg/dL (74-106); Potassium 3.7 mmol/L (3.5-5.1); Sodium Level 142 mmol/L (136-145); Thyroid Stim Hormone (TSH) 5.76 uIU/mL (0.358-3.74)
== END | disposition home or self-care (01) ==
LOC: LAB 10:37
PROVIDERS: PCP Nurse Practitioner Family; Referring Provider Physician Assistant Medical; Visit Provider Physician Assistant Medical
DX: I48.0 Paroxysmal atrial fibrillation (principal); E78.5 Hyperlipidemia, unspecified
CPT/HCPCS: 36415; 80048; 84443; 85025

== ENCOUNTER → 2022-07-06 | Outpatient (CLI) | payer MEDICARE, SELFPAY ==
[2022-07-06 09:24] LABS: Hematocrit 38.1 % (40-54); Hemoglobin 11.6 g/dL (13.0-16.5); Mean Corp Hgb Conc 30.4 g/dL (32-36); Mean Corpuscular Hgb 30.4 pg (27.0-32.0); Mean Platelet Vol. 10.7 fl (6.2-12.0); Platelet Count 139 K/mm3 (150-450); RBC Distribution Width SD 55.9 fl (35.1-43.9); Red Blood Count 3.81 M/mm3 (4.6-6.2); White Blood Count 7.1 K/mm3 (4.4-11.0)
[2022-07-06 09:47] LABS: PTHIN 56.3 pg/mL (18.4-80.1)
[2022-07-06 09:51] LABS: Vitamin D,25 Hydroxy 42.5 ng/mL
[2022-07-06 09:54] LABS: Hemoglobin A1c 5.7 % (3.8-5.6)
[2022-07-06 10:01] LABS: ALB/GLOB Ratio 0.9 RATIO (0.9-2.4); AST(SGOT) 25 U/L (15-37); Alanine Aminotransfer ALT/SGPT 20 U/L (16-61); Albumin, Serum 3.5 g/dL (3.2-5.0); Alkaline Phosphatase 89 U/L (45-117); Anion Gap 2 (5-15); BUN 14 mg/dL (7-18); BUN/Creat Ratio 12.2 RATIO (10-20); Calcium,Total 8.9 mg/dL (8.5-10.1); Chloride 108 mmol/L (98-107); Cholesterol 92 mg/dL (200); Creatinine, Serum 1.15 mg/dL (0.70-1.30); EST Glomerular Filtration Rate 65 mL/min (>60); Est Glom Filt Rate - Afr Amer 78 mL/min (>60); Globulin 3.8 g/dL (2.2-4.2); Glucose 113 mg/dL (74-106); High Density Lipoprotein 29 mg/dL; PSA,Total - Annual Screen 0.52 ng/mL (0.00-4.00); Potassium 3.3 mmol/L (3.5-5.1); Protein, Total 7.3 g/dL (6.4-8.2); Sodium Level 141 mmol/L (136-145); Triglycerides 89 mg/dL; Very Low Density Lipoprotein 18 mg/dL (5-40)
[2022-07-11 20:08] LABS: Renin, Plasma 0.209 ng/mL/hr (0.167-5.380)
== END | disposition home or self-care (01) ==
LOC: LAB 08:51
PROVIDERS: PCP Nurse Practitioner Family; Visit Provider Nurse Practitioner Family
DX: R73.01 Impaired fasting glucose (principal); D53.9 Nutritional anemia, unspecified; N18.9 Chronic kidney disease, unspecified; I12.9 Hypertensive chronic kidney disease with stage 1 through stage 4 chronic kidney disease, or unspecified chronic kidney disease; E78.5 Hyperlipidemia, unspecified; E55.9 Vitamin D deficiency, unspecified; Z12.5 Encounter for screening for malignant neoplasm of prostate
CPT/HCPCS: 36415; 80053; 80061; 82306; 83036; 83970; 84153; 84244; 85027; G0103

== ENCOUNTER → 2022-08-17 | Outpatient (CLI) | payer MEDICARE, SELFPAY ==
[2022-08-17 09:22] LABS: Absolute Lymphocyte Count 2.74 X10^3/uL (0.83-4.51); Absolute Neutrophil Count 4.3 X10^3/uL (2.0-7.7); Basophil# 0.04 X10^3/uL; Basophil% 0.5 % (0-1); Eosinophil# 0.22 X10^3/uL; Eosinophils% 2.8 % (0-5); Hematocrit 39.7 % (40-54); Hemoglobin 12.1 g/dL (13.0-16.5); Lymphocyte # 2.74 X10^3/ul (0.83-4.51); Lymphocyte % 34.5 % (19-41); Mean Corp Hgb Conc 30.5 g/dL (32-36); Mean Corpuscular Hgb 29.4 pg (27.0-32.0); Mean Corpuscular Volume 96.6 fL (80-94); Monocyte# 0.66 X10^3/uL; Monocyte% 8.3 % (0-10); NRBC Flagged by Analyzer 0 % (0-5); Neutrophil # 4.27 X10^3/uL (2.7-7.7); Neutrophil % 53.6 % (47-70); Platelet Count 149 K/mm3 (150-450); RBC Distribution Width CV 15.1 % (11.6-14.6); RBC Distribution Width SD 53.8 fl (35.1-43.9); Red Blood Count 4.11 M/mm3 (4.6-6.2)
[2022-08-17 09:48] LABS: ALB/GLOB Ratio 0.8 RATIO (0.9-2.4); AST(SGOT) 24 U/L (15-37); Alanine Aminotransfer ALT/SGPT 21 U/L (16-61); Albumin, Serum 3.6 g/dL (3.2-5.0); Alkaline Phosphatase 94 U/L (45-117); Anion Gap 4 (5-15); BUN 17 mg/dL (7-18); BUN/Creat Ratio 13.9 RATIO (10-20); Calcium,Total 9.2 mg/dL (8.5-10.1); Chloride 109 mmol/L (98-107); Creatinine, Serum 1.22 mg/dL (0.70-1.30); EST Glomerular Filtration Rate 61 mL/min (>60); Est Glom Filt Rate - Afr Amer 73 mL/min (>60); Ferritin 225 ng/mL (26-388); Globulin 4.4 g/dL (2.2-4.2); Glucose 114 mg/dL (74-106); Iron 51 ug/dL (65-175); Iron Binding Capacity,Total 231 ug/dL (250-450); PERCENT IRON SATURATION 22.1 % (15.0-55.0); Potassium 3.8 mmol/L (3.5-5.1); Sodium Level 143 mmol/L (136-145)
== END | disposition home or self-care (01) ==
PROVIDERS: PCP Nurse Practitioner Family; Referring Provider Nurse Practitioner Adult Health; Visit Provider Nurse Practitioner Adult Health
DX: E78.5 Hyperlipidemia, unspecified (principal); D64.9 Anemia, unspecified
CPT/HCPCS: 36415; 80053; 82728; 83540; 83550; 85025

== ENCOUNTER → 2022-08-18 | Outpatient (CLI) | payer MEDICARE, SELFPAY | END | disposition home or self-care (01) | LOC: LABSPEC 13:35 | PROVIDERS: PCP Nurse Practitioner Family; Visit Provider Nurse Practitioner Adult Health | DX: R19.7 Diarrhea, unspecified (principal) | CPT/HCPCS: 87493 ==

== ENCOUNTER 2022-11-20 08:55 | Outpatient (CLI) | payer MEDICARE, SELFPAY ==
[2022-11-20 10:09] LABS: ALB/GLOB Ratio 0.7 RATIO (0.9-2.4); AST(SGOT) 39 U/L (15-37); Alanine Aminotransfer ALT/SGPT 31 U/L (16-61); Albumin, Serum 3.5 g/dL (3.2-5.0); Alkaline Phosphatase 94 U/L (45-117); Anion Gap 5 (5-15); BUN 31 mg/dL (7-18); BUN/Creat Ratio 18.9 RATIO (10-20); Calcium,Total 9.3 mg/dL (8.5-10.1); Chloride 105 mmol/L (98-107); Creatinine, Serum 1.64 mg/dL (0.70-1.30); EST Glomerular Filtration Rate 43 mL/min (>60); Est Glom Filt Rate - Afr Amer 52 mL/min (>60); Globulin 5.1 g/dL (2.2-4.2); Glucose 109 mg/dL (74-106); Potassium 4.4 mmol/L (3.5-5.1); Protein, Total 8.6 g/dL (6.4-8.2); Sodium Level 141 mmol/L (136-145); Thyroid Stim Hormone (TSH) 6.27 uIU/mL (0.358-3.74)
[2022-11-20 12:42] LABS: BNP,B-Type NATRIURETIC PEPTIDE 165.2 pg/mL (0-100)
== END 2022-11-20 23:59 | disposition home or self-care (01) ==
LOC: LAB 08:57
PROVIDERS: PCP Nurse Practitioner Family; Referring Provider Nurse Practitioner Family; Visit Provider Nurse Practitioner Family
DX: N18.9 Chronic kidney disease, unspecified (principal); I50.9 Heart failure, unspecified; I48.0 Paroxysmal atrial fibrillation
CPT/HCPCS: 36415; 80053; 83880; 84443

== ENCOUNTER → 2023-01-08 | Outpatient (CLI) | payer MEDICARE, SELFPAY ==
[2023-01-08 09:04] LABS: Hematocrit 38.7 % (40-54); Hemoglobin 12.1 g/dL (13.0-16.5); Mean Corp Hgb Conc 31.3 g/dL (32-36); Mean Corpuscular Hgb 31.2 pg (27.0-32.0); Mean Corpuscular Volume 99.7 fL (80-94); Mean Platelet Vol. 10.7 fl (6.2-12.0); Platelet Count 140 K/mm3 (150-450); RBC Distribution Width CV 16.3 % (11.6-14.6); RBC Distribution Width SD 59.8 fl (35.1-43.9); Red Blood Count 3.88 M/mm3 (4.6-6.2); White Blood Count 8.5 K/mm3 (4.4-11.0)
[2023-01-08 09:40] LABS: BNP,B-Type NATRIURETIC PEPTIDE 355.3 pg/mL (0-100)
[2023-01-08 09:44] LABS: Vitamin D,25 Hydroxy 54.5 ng/mL
[2023-01-08 09:47] LABS: ALB/GLOB Ratio 0.8 RATIO (0.9-2.4); AST(SGOT) 25 U/L (15-37); Alanine Aminotransfer ALT/SGPT 20 U/L (16-61); Albumin, Serum 3.4 g/dL (3.2-5.0); Alkaline Phosphatase 82 U/L (45-117); Anion Gap 4 (5-15); BUN 17 mg/dL (7-18); BUN/Creat Ratio 13.2 RATIO (10-20); Calcium,Total 9.2 mg/dL (8.5-10.1); Chloride 108 mmol/L (98-107); Cholesterol 103 mg/dL (200); Creatinine, Serum 1.29 mg/dL (0.70-1.30); EST Glomerular Filtration Rate 57 mL/min (>60); Est Glom Filt Rate - Afr Amer 69 mL/min (>60); Globulin 4.3 g/dL (2.2-4.2); Glucose 118 mg/dL (74-106); High Density Lipoprotein 30 mg/dL; Iron 62 ug/dL (65-175); Potassium 3.6 mmol/L (3.5-5.1); Protein, Total 7.7 g/dL (6.4-8.2); Sodium Level 143 mmol/L (136-145); Triglycerides 76 mg/dL; Very Low Density Lipoprotein 15 mg/dL (5-40)
[2023-01-08 09:48] LABS: Hemoglobin A1c 5.9 % (3.8-5.6)
[2023-01-08 15:36] LABS: Microalbumin,Random Urine 50.9 mg/L (NO RANGE EST.); Microalbumin:Creatinine Ratio 48.5 mg/g CRE (<30 mg/g CRE)
== END | disposition home or self-care (01) ==
LOC: LAB 08:35
PROVIDERS: PCP Nurse Practitioner Family; Referring Provider Nurse Practitioner Family; Visit Provider Nurse Practitioner Family
DX: R73.01 Impaired fasting glucose (principal); I50.9 Heart failure, unspecified; I13.0 Hypertensive heart and chronic kidney disease with heart failure and stage 1 through stage 4 chronic kidney disease, or unspecified chronic kidney disease; N18.9 Chronic kidney disease, unspecified; D50.0 Iron deficiency anemia secondary to blood loss (chronic); E78.5 Hyperlipidemia, unspecified; E55.9 Vitamin D deficiency, unspecified
CPT/HCPCS: 36415; 80053; 80061; 82043; 82306; 82570; 83036; 83540; 83880; 85027

== ENCOUNTER → 2023-01-13 | Outpatient (CLI) | payer MEDICARE, SELFPAY ==
[2023-01-13 11:19] LABS: T4 Free Direct 1.23 ng/dL (0.76-1.46); Thyroid Stim Hormone (TSH) 3.65 uIU/mL (0.358-3.74)
== END | disposition home or self-care (01) ==
LOC: LAB 09:12
PROVIDERS: PCP Nurse Practitioner Family; Visit Provider Nurse Practitioner Family
DX: E03.9 Hypothyroidism, unspecified (principal)
CPT/HCPCS: 36415; 84439; 84443

== ENCOUNTER → 2023-02-19 | Outpatient (CLI) | payer MEDICARE, SELFPAY ==
[2023-02-19 15:43] LABS: ALB/GLOB Ratio 0.7 RATIO (0.9-2.4); AST(SGOT) 26 U/L (15-37); Alanine Aminotransfer ALT/SGPT 18 U/L (16-61); Albumin, Serum 3.5 g/dL (3.2-5.0); Alkaline Phosphatase 100 U/L (45-117); Anion Gap 6 (5-15); BUN 30 mg/dL (7-18); BUN/Creat Ratio 19.4 RATIO (10-20); Calcium,Total 9.2 mg/dL (8.5-10.1); Chloride 107 mmol/L (98-107); Creatinine, Serum 1.55 mg/dL (0.70-1.30); EST Glomerular Filtration Rate 46 mL/min (>60); Est Glom Filt Rate - Afr Amer 56 mL/min (>60); Globulin 4.8 g/dL (2.2-4.2); Glucose 103 mg/dL (74-106); Potassium 4.2 mmol/L (3.5-5.1); Protein, Total 8.3 g/dL (6.4-8.2); Sodium Level 142 mmol/L (136-145)
== END | disposition home or self-care (01) ==
LOC: LAB 14:46
PROVIDERS: PCP Nurse Practitioner Family; Referring Provider Nurse Practitioner Family; Visit Provider Nurse Practitioner Family
DX: R60.9 Edema, unspecified (principal); I48.0 Paroxysmal atrial fibrillation; I25.10 Atherosclerotic heart disease of native coronary artery without angina pectoris
CPT/HCPCS: 36415; 80053

== ENCOUNTER → 2023-05-17 | Outpatient (CLI) | payer MEDICARE, SELFPAY ==
--- OUTSIDE RECORDS SUMMARY | 2023-05-17 12:25 | XMS RPT_ITS | CCD ---
Author Name Unknown Address [address] [place] [address] Organization [facility] Results Test Name Value Interpretation Reference Range Facil ity Summary Purpose Family History No Family History Records Found Advance Directives No Advanced Directives Records Found Additional Source Comments (unrecognized sect ion and content) No Status Records Found INFORMATION SOURCE (unrecogn ized section and content) FOR RECORDS PERTAINING TO PATIENTS WHO ARE OR HAVE BEEN ENROLLED IN A CHEMICAL DEPENDENCY/SUBSTANCEABUSE PROGRAM, SOME INFORMATION MAY BE OMITTED. This clinical summary was aggregated from multiple sources. Caution should be exercised in using it in the provision of clinical care. This summary normalizes information from multiple sources, and as a consequence, information in this document may materially change the coding, format and clinical context of patient data. In addition, data may be omitted in some cases. CLINICAL DECISIONS SHOULD BE BASED ON THE PRIMARY CLINICAL RECORDS. [employer] provides no warranty or guarantee of the accuracy or completeness of information in this document.
[2023-05-17 12:47] LABS: Absolute Lymphocyte Count 3.06 X10^3/uL (0.83-4.51); Absolute Neutrophil Count 6.3 X10^3/uL (2.0-7.7); Basophil# 0.05 X10^3/uL; Basophil% 0.5 % (0-1); Eosinophil# 0.17 X10^3/uL; Eosinophils% 1.6 % (0-5); Hematocrit 37.4 % (40-54); Hemoglobin 11.8 g/dL (13.0-16.5); Lymphocyte # 3.06 X10^3/ul (0.83-4.51); Lymphocyte % 28.8 % (19-41); Mean Corp Hgb Conc 31.6 g/dL (32-36); Mean Corpuscular Hgb 30.7 pg (27.0-32.0); Mean Corpuscular Volume 97.4 fL (80-94); Monocyte# 1.05 X10^3/uL; Monocyte% 9.9 % (0-10); NRBC Flagged by Analyzer 0 % (0-5); Neutrophil # 6.27 X10^3/uL (2.7-7.7); Neutrophil % 58.8 % (47-70); Platelet Count 169 K/mm3 (150-450); RBC Distribution Width CV 15.8 % (11.6-14.6); Red Blood Count 3.84 M/mm3 (4.6-6.2); Reticulocyte Count 1.16 % (0.5-1.5); White Blood Count 10.6 K/mm3 (4.4-11.0)
[2023-05-17 13:31] LABS: Ferritin 568 ng/mL (26-388); Iron 62 ug/dL (65-175); Iron Binding Capacity,Total 316 ug/dL (250-450); LDH 171 U/L (87-241)
--- NOTE | 2023-05-17 17:57 | WC ---
Patient came in to obtain an appointment after being referred by Dr. Major. After patient had left I had a discussion with his PCP office and reported my observation of extremely red and swollen legs, I suggested to the PCP office that the patient needed to be seen either in their office or the ER and they agreed. This nurse then called the patient at approx 13:00 to inform them to either go to the PCP office or the ER, there was no answer but a VM was left stating such recommendations. At 17:50 this nurse attempted to follow up and see if the patient had received the message and had followed the recommendation, again no answer so a second message was left reinforcing the need for the patient to be seen for treatment and asked the patient or family member to contact me with the outcome of their decision. If I receive no response I will attempt to contact them again.
[2023-05-21 16:09] LABS: Albumin 3.5 g/dL (2.9-4.4); Alpha-1-Globulins 0.2 g/dL (0.0-0.4); Alpha-2-Globulins 0.9 g/dL (0.4-1.0); Endomysial Antibody IgA Negative (Negative); Gamma Globulin 1.1 g/dL (0.4-1.8); Immunoglobulin A 747 mg/dL (61-437); Immunoglobulin G 1328 mg/dL (603-1613); Immunoglobulin M 60 mg/dL (15-143); PROEL- TOTAL PROTEIN 7.2 g/dL (6.0-8.5); t-Transglutaminase IgA 3 U/mL (0-3)
== END | disposition home or self-care (01) ==
LOC: LAB 12:11
PROVIDERS: PCP Nurse Practitioner Family; Referring Provider Internal Medicine Gastroenterology; Visit Provider Internal Medicine Gastroenterology
DX: I48.0 Paroxysmal atrial fibrillation (principal); K21.9 Gastro-esophageal reflux disease without esophagitis; D50.9 Iron deficiency anemia, unspecified
CPT/HCPCS: 36415; 82728; 82784; 83516; 83540; 83550; 83615; 84165; 85025; 85045; 86255; 86334

== ENCOUNTER 2023-05-21 13:44 | Outpatient (RCR) | payer MEDICARE, SELFPAY ==
[2023-05-21 13:55] VITALS: BP 134/75; PULSE 82; RESP 18; TEMP 36.6; BMI 39.0
--- NOTE | 2023-05-21 14:32 | PCM.WC.HP ---
History of Present Illness Date of Service: 05/21/23 Chief Complaint: Bilateral lower extremity ulcerations, swelling, edema, and lymphedema History of Wound: This is an 82-year-old male who presents with a longstanding history of swelling, edema, and lymphedema in his lower extremities. The patient has recently developed ulcerations in both lower extremities. These ulcerations began as blisters. They were associated with severe swelling, edema, and lymphedema. It appears as though the patient's presenting symptoms and manifestations are related to his daily habits. The patient sleeps in a chair. He does so due to sleep apnea. He is not active. He spends a large part of each day sitting. He requires a cane for ambulation. He denies a history of thrombophlebitis. His relates that the swelling and edema in his lower extremities was minimized after a week in the intensive care unit for treatment of other problems. This was likely due to the patient's confinement to bed, with his legs elevated to heart level. Patient had blood work performed on May 17, 2023, with results as follows: White blood count 10.6, hemoglobin 11.8, hematocrit 37.4, platelets 169,000, iron 62, TIBC 316, ferritin 568. The patient has a history of pre-existing medical problems and prior procedures, which are listed below. [facility] Medical History Atherosclerosis of [place] coronary artery of [place] heart without angina pectoris Bilateral leg ulcer BPH (benign prostatic hyperplasia) Cardiac arrest (11/2015) COVID-19 virus detected (03/21/21) Dependent edema Essential (primary) hypertension GERD (gastroesophageal reflux disease) History of myocardial infarction History of upper gastrointestinal hemorrhage Hyperlipidemia Leg edema, left Leg edema, right Leg swelling Lymphedema Obesity Obesity (BMI 30-39.9) Obstructive sleep apnea Obstructive sleep apnea Paroxysmal atrial fibrillation Syncope and collapse Home Medications omega-3 fatty acids 1,000 mg capsule (Fish Oil Concentrate) 1,000 mg PO DAILY 09/30/20 [History Last Taken Unknown] cinnamon bark 500 mg capsule (Cinnamon) 500 mg PO DAILY 12/08/21 [History Last Taken Unknown] niacin 500 mg tablet 500 mg PO DAILY 12/08/21 [History Last Taken Unknown] ferrous sulfate 325 mg (65 mg iron) tablet (FeroSul) 325 mg PO TIDCM #0 tabs 05/02/22 [Rx Last Taken Unknown] pantoprazole 40 mg tablet,delayed release 40 mg PO QAM #90 tabs 08/17/22 [Rx Last Taken Unknown] atenolol 50 mg tablet 50 mg PO BID 02/09/23 [History Last Taken Unknown] levothyroxine 25 mcg tablet 25 mcg PO DAILY 02/09/23 [History Last Taken Unknown] spironolactone 25 mg tablet 25 mg PO DAILY #90 tabs 02/12/23 [Rx Last Taken Unknown] atorvastatin 80 mg tablet 80 mg PO QDAY #90 tabs 02/19/23 [Rx Last Taken Unknown] clopidogrel 75 mg tablet 75 mg PO DAILY #90 tabs 02/19/23 [Rx Last Taken Unknown] losartan 100 mg tablet 100 mg PO DAILY #90 tabs 02/19/23 [Rx Last Taken Unknown] nitroglycerin 0.4 mg sublingual tablet 0.4 mg sublingual Q5-15M PRN chest pain #25 tabs 02/19/23 [Rx Last Taken Unknown] furosemide 40 mg tablet 40 mg PO DAILY #90 tabs 03/22/23 [Rx Last Taken Unknown] famotidine 20 mg tablet 20 mg PO BID #60 tabs 05/17/23 [Rx Last Taken Unknown] sucralfate 1 gram tablet 1 g PO QAC #30 tabs 05/17/23 [Rx Last Taken Unknown] Allergy/AdvReac Type Severity Reaction Status Date / Time amiodarone AdvReac Intermediate Dizzy and Verified 03/22/23 13:53 GI upset, SOB and cough Family History Father CAD (coronary artery disease) Heart disease Hypertension Myocardial infarction Brother CAD (coronary artery disease) Heart disease Hypertension Myocardial infarction Mother CAD (coronary artery disease) Heart disease Hypertension Myocardial infarction Other Diabetes Surgical History History of coronary artery stent placement (12/07/15) History of hemorrhoidectomy (1972) History of right hip replacement (09/2013) History of total right hip replacement Social History household members: spouse Smoking Status: Former smoker how long ago did patient quit smoking: Quit in his 30s, smoked since teen (~ 15-20 years), < 1 ppd day. alcohol intake: former substance use type: does not use caffeine: Yes Type: tea Number of servings: 2 Physical Exam Const alert, oriented x3, no apparent distress and well nourished Constitutional Narrative: The patient is obese. His BMI is 39. General Appearance: cooperative, comfortable, well kempt and well developed Orientation / Consciousness: awake, oriented to person, oriented to place and oriented to time Exam Limitations: no limitations HEENT normocephalic and head/scalp atraumatic Head and Scalp: normal to inspection, normocephalic and atraumatic External Ear: external ears normal Eyes PERRL and EOMs intact bilaterally General Eye: normal appearance of both eyes Resp normal respiratory effort, normal air movement, no retractions and no use of accessory muscles Effort and Inspection: able to speak in complete sentences Extremity no calf tenderness General Extremity: Negative for clubbing or cyanosis Skin Wound Narrative: Severe swelling, edema, and lymphedema are noted in the patient's lower extremities bilaterally. Multiple excoriations and ulcerations are noted in the lower extremities bilaterally. With each, a moderate amount of bioburden and nonviable tissue is noted. Dimensions are documented elsewhere. There is no obvious sign of infection or cellulitis. Very slight erythema is noted in the gaiter areas bilaterally, appearing to be inflammatory rather than cellulitic. Neuro oriented x3, CN's II-XII intact bilaterally, moves all extremities and no focal motor deficits Sensorium / Orientation: awake, alert, oriented to person, oriented to place and oriented to time Psych Appearance: grossly normal and appropriate Attitude: calm Activity / Motor Behavior: appropriate eye contact Speech: normal speech Mood & Affect: euthymic mood Thought Process: normal thought process Thought Content: normal thought content Attention / Concentration: attention grossly intact Debridement Note Debridement Note Wound debrided: Multiple ulcerations of the right gaiter area Laterality: Right Type of Debridement: Excisional debridement Anesthesia Used: 5% Lidocaine Gel Depth: Down to and including healthy tissue and in the subcutaneous layer Percentage of wound debrided: 100 Instrument Used: 5mm curette Tissue Removed: Bioburden and nonviable tissue Severity: Fat Layer Exposed Amount of bleeding with debridement: Mild Bleeding Controlled with: Compression and gauze Patient tolerated procedure: Patient tolerated procedure well Additional Wound Wound debrided: Multiple ulcerations of the left gaiter area Laterality: Left Type of Debridement: Excisional debridement Anesthesia Used: 5% Lidocaine Gel Depth: Down to and including healthy tissue and in the subcutaneous layer Percentage of wound debrided: 100 Instrument Used: 5mm curette Severity: Fat Layer Exposed Amount of bleeding with debridement: Mild Bleeding Controlled with: Compression and gauze Patient tolerated procedure: Patient tolerated procedure well Assessment/Plan Assessment/Plan (1) Bilateral leg ulcer: CODE(S): L97.919 - 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; L97.929 - Non-pressure chronic ulcer of unspecified part of left lower leg with unspecified severity QUALIFIERS: Non-pressure ulcer stage: with fat layer exposed Qualified Code(s): L97.912 - Non-pressure chronic ulcer of unspecified part of right lower leg with fat layer exposed; L97.922 - Non-pressure chronic ulcer of unspecified part of left lower leg with fat layer exposed (2) Lymphedema: CODE(S): I89.0 - Lymphedema, not elsewhere classified (3) Leg edema, right: CODE(S): R60.0 - Localized edema (4) Leg edema, left: CODE(S): R60.0 - Localized edema (5) Leg swelling: CODE(S): M79.89 - Other specified soft tissue disorders (6) Dependent edema: CODE(S): R60.9 - Edema, unspecified (7) GERD (gastroesophageal reflux disease): CODE(S): K21.9 - Gastro-esophageal reflux disease without esophagitis (8) Essential (primary) hypertension: CODE(S): I10 - Essential (primary) hypertension (9) Anemia: CODE(S): D64.9 - Anemia, unspecified (10) Atherosclerosis of [place] coronary artery of [place] heart without angina pectoris: CODE(S): I25.10 - Atherosclerotic heart disease of [place] coronary artery without angina pectoris (11) Obesity (BMI 30-39.9): CODE(S): E66.9 - Obesity, unspecified (12) History of myocardial infarction: CODE(S): I25.2 - Old myocardial infarction (13) History of upper gastrointestinal hemorrhage: CODE(S): Z87.19 - Personal history of other diseases of the digestive system (14) Obstructive sleep apnea: CODE(S): G47.33 - Obstructive sleep apnea (adult) (pediatric) (15) History of total right hip replacement: CODE(S): Z96.641 - Presence of right artificial hip joint PLAN: Plan This is an 82-year-old male who has slept in a chair chronically for a long period of time. He is not active. He sits for long periods of time each day. Ambulation is limited, and is assisted by a cane. Additionally, the patient is obese. Graduated compression stockings have been previously dispensed, but the patient has failed to comply with their use. A lengthy discussion has been undertaken with the patient and his regarding the appropriate measures for management. Leg elevation has been advised. His legs are to be elevated to heart level, or higher. This is to be during both daytime and nighttime hours. Prolonged idle sitting has been discouraged. Activity has been encouraged, though it is unlikely that the patient will enhance his activity level to any significant degree. We are to implement the use of Promogran topically to the ulcerations in both lower extremities. Compression is to be implemented by use of a 3M 2 layer compression wrap to each lower extremity. Initially, these are to be applied with only moderate compression, to minimize the possibility of congestive heart failure due to enhanced venous return. Ultimately, with subsequent reapplications of the wraps, compression will be enhanced. The compression wraps will be changed twice weekly. The patient will return in 1 week for reevaluation. The patient has been encouraged to optimize his nutritional intake. Total time: 48 minutes
== END 2023-05-24 23:59 | disposition home or self-care (01) ==
LOC: WC 13:44
PROVIDERS: PCP Nurse Practitioner Family; Referring Provider Internal Medicine Gastroenterology; Visit Provider Podiatrist Foot & Ankle Surgery
DX: L97.912 Non-pressure chronic ulcer of unspecified part of right lower leg with fat layer exposed (principal); L97.922 Non-pressure chronic ulcer of unspecified part of left lower leg with fat layer exposed; G47.33 Obstructive sleep apnea (adult) (pediatric); Z68.39 Body mass index [BMI] 39.0-39.9, adult; K21.9 Gastro-esophageal reflux disease without esophagitis; I10 Essential (primary) hypertension; E66.9 Obesity, unspecified; I25.10 Atherosclerotic heart disease of native coronary artery without angina pectoris; Z87.891 Personal history of nicotine dependence; I89.0 Lymphedema, not elsewhere classified; D64.9 Anemia, unspecified; R60.0 Localized edema; Z96.641 Presence of right artificial hip joint; Z87.19 Personal history of other diseases of the digestive system; I25.2 Old myocardial infarction; M79.89 Other specified soft tissue disorders
CPT/HCPCS: 11042; 11045; 29581; 99213; G0463

== ENCOUNTER 2023-06-20 11:30 | Outpatient (RCR) | payer MEDICARE, SELFPAY ==
[2023-05-25 00:42] VITALS: BP 134/75; PULSE 82; RESP 18; TEMP 36.6; BMI 39.0
[2023-05-30 14:43] VITALS: BP 144/64; PULSE 81; RESP 18; TEMP 35.7; BMI 39.0
--- NOTE | 2023-05-30 16:33 | PN.PCM_ITS ---
History of Present Illness Date of Service: 05/30/23 Chief Complaint: Bilateral lower extremity ulcerations, swelling, edema, and lymphedema History of Wound: This is an 82-year-old male who presents with a longstanding history of swelling, edema, and lymphedema in his lower extremities. The patient has recently developed ulcerations in both lower extremities. These ulcerations began as blisters. They were associated with severe swelling, edema, and lymphedema. It appears as though the patient's presenting symptoms and manifestations are related to his daily habits. The patient sleeps in a chair. He does so due to sleep apnea. He is not active. He spends a large part of each day sitting. He requires a cane for ambulation. He denies a history of thrombophlebitis. His relates that the swelling and edema in his lower extremities was minimized after a week in the intensive care unit for treatment of other problems. This was likely due to the patient's confinement to bed, with his legs elevated to heart level. Patient had blood work performed on May 17, 2023, with results as follows: White blood count 10.6, hemoglobin 11.8, hematocrit 37.4, platelets 169,000, iron 62, TIBC 316, ferritin 568. The patient has a history of pre-existing medical problems and prior proc edures, which are listed below. Subjective Subjective Mr. Joyce is a 82-year-old male presenting for follow-up and evaluation of bilateral lower extremity ulcerations and swelling at the wound care center at [facility]. Patient was seen by an outside provider. Patient is following up with Dr. Camilo for continued evaluation and treatment to the patient's bilateral lower extremity ulcerations and swelling. Patient is not a diabetic. Patient admits to improvement when being evaluated today. Denies trauma. Denies constitutional symptoms. Other pedal complaints at this time. Objective Data Objective Data Vital Signs: Vital Signs Temp Pulse Resp BP O2 Del Method 96.3 F L 81 18 144/64 H Room Air 05/30/23 14:43 05/30/23 14:43 05/30/23 14:43 05/30/23 14:43 05/30/23 14:43 Oxygen Delivery Method Room Air Weight: 109.769 kg Body Mass Index (BMI) 39.0 Physical Exam Narrative Vascular: DP and PT pulse are palpable. CFT is brisk. +1 pitting edema appreciated bilateral lower extremity. Evidence of hemosiderin deposits are appreciated bilateral lower extremity. Skin temperature great is warm to warm from proximal ankle to distal digits bilateral. No increase in focal warmth is appreciated. Neurological: Light touch and epicritic station is intact. Patient responds to painful stimuli. Dermatological: Full-thickness ulcerations appreciated to the bilateral lower extremity. The right lower extremity ulceration measures 7.0 x 3.8 x 0.1 cm. Left lower extremity ulceration measures 10.0 x 3.5 x 0.1 cm. All ulcerations wound base is 100% granular nature. Evidence of serous drainage. +1 pitting edema is appreciated bilateral lower extremity. Evidence of hemosiderin deposi ts are appreciated. Excisional debridement down to and including subcutaneous tissue of the right lower extremity full-thickness ulceration with a 5 mm dermal curette. Predebridement measurements are 6.8 x 3.5 x 0.1 cm. Postdebridement measurement is 7.0 x 3.8 x 0.1 cm. Excisional debridement down to and including subcutaneous tissue of the left lower extremity full-thickness ulceration with a 5 mm dermal curette. Predebridement measurement is 9.5 x 3.0 x 0.1 cm. Postdebridement measurement is 10.0 x 3.5 x 0.1 cm. Musculoskeletal: No strength 5 and 5 bilaterally. Mild pain on palpation to bilateral full-thickness ulcerations. No pain with calf compression. Debridement Note Debridement Note Debridement Free Text: Excisional debridement down to and including subcutaneous tissue of the right lower extremity full-thickness ulceration with a 5 mm dermal curette. Predebridement measurements are 6.8 x 3.5 x 0.1 cm. Postdebridement measurement is 7.0 x 3.8 x 0.1 cm. Excisional debridement down to and including subcutaneous tissue of the left lower extremity full-thickness ulceration with a 5 mm dermal curette. Predebridement measurement is 9.5 x 3.0 x 0.1 cm. Postdebridement measurement is 10.0 x 3.5 x 0.1 cm. Post-Debridement Measurements and Additional Note: Post-Debridement Measurements/Treatment RAMÓN - Nurse 1 - General Ulcer Assessment Start: 05/25/23 11:43 Freq: Status: Active Protocol: LOWEXT Activity Type Activity Date Activity User E-sign Co-sign Detail Recorded Client Recorded Date Recorded By Document 05/30/23 14:43 [email or web address] 05/30/23 15:04 05/30/23 14:43 WC - Today's Visit Information Type of service Follow-up Visit (Physician/CHIEF PRIVACY OFFICER ) Patient Identification Verified (Name & Yes ) Height and Weight Body Mass Index (BMI) 39.0 BMI Classification Obese Vital Signs Temperature (97.8 F-99.1 F) 96.3 F L Temperature Source Temporal Pulse Rate (60-100) 81 Pulse Location Monitor Respiratory Rate (12-18) 18 Respiratory rate source Observation Oxygen Delivery Method Room Air Blood Pressure (90/60-120/80) 144/64 H Blood Pressure Mean (mm Hg) 90 Source Monitor Position Supine Blood Pressure Location Left Forearm History Since Last Visit- (Skip if this is Patient's initial visit) Have you changed medications since your No last visit? Any new allergies or adverse reactions No Had a fall/change in ADL's that may No increase risk of falls Signs or symptoms of abuse and/or No neglect since last visit Have you been in the hospital since your No last visit? Has dressing in place as prescribed Yes Has compression in place as prescribed Yes Has offloadiing in place as prescribed N/A Experienced any changes in pain level or No management Left Footwear Regular Shoe Right Footwear Regular Shoe Pain Scale: 0-10 Numeric Is Patient Pain Free? Yes - Nurse 1 - General Ulcer Measurement Start: 05/25/23 11:43 Freq: Status: Active Protocol: Activity Type Activity Date Activity User E-sign Co-sign Detail Recorded Client Recorded Date Recorded By Document 05/30/23 14:43 [employer] 05/30/23 15:04 05/30/23 14:43 Wound Center Nurse 1 #4 RLE Lateral -Current Size (cm) - Length 8.7 -Current Size (cm) - Width 4 -Current Size (cm) - Depth 0.2 -Total Square Cm 34.8 -Exudate Amt Small -Exudate Type Serosanguineous -Wound Margin Distinct, Outline Attached -Granulation Amt Large (67-100%) -Granulation Quality Red -Texture (Julia-wound Skin Appearance) Assessed -Moisture (Julia-wound Skin Appearance) Maceration -Color (Julia-wound Skin Appearance) Assessed, Erythema -Temperature (Julia-wound Skin No Abnormality Appearance) (Pt Warm) -Ulcer Cleansing Soap and Water -Foul Odor after Cleansing No -Anesthetic Used 4% Lidocaine Solution #2 LLE Posterior -Current Size (cm) - Length 2.2 -Current Size (cm) - Width 1 -Current Size (cm) - Depth 0.2 -Total Square Cm 2.2 -Exudate Amt Medium -Exudate Type Serosanguineous -Wound Margin Distinct, Outline Attached -Granulation Amt Large (67-100%) -Granulation Quality [place] -Necrosis Amt Medium (34-66%) -Necrotic Tissue Type Adherent Slough -Texture (Julia-wound Skin Appearance) Assessed -Moisture (Julia-wound Skin Appearance) Assessed, Maceration -Color (Julia-wound Skin Appearance) Assessed, Erythema -Temperature (Julia-wound Skin No Abnormality Appearance) (Pt Warm) -Ulcer Cleansing Soap and Water -Anesthetic Used 4% Lidocaine Solution #3 RLE -Current Size (cm) - Length 3 -Current Size (cm) - Width 2.7 -Current Size (cm) - Depth 0.1 -Total Square Cm 8.1 -Exudate Amt Medium -Exudate Type Serosanguineous -Wound Margin Distinct, Outline Attached -Granulation Amt Small (1-33%) -Granulation Quality Red -Necrosis Amt Medium (34-66%) -Necrotic Tissue Type Adherent Slough -Texture (Julia-wound Skin Appearance) Assessed -Moisture (Julia-wound Skin Appearance) Assessed -Color (Julia-wound Skin Appearance) Assessed -Temperature (Julia-wound Skin No Abnormality Appearance) (Pt Warm) -Ulcer Cleansing Soap and Water -Anesthetic Used 4% Lidocaine Solution -Wound Comment(s) scabbing #1 LLE Medial -Current Size (cm) - Length 2.2 -Current Size (cm) - Width 2.5 -Current Size (cm) - Depth 0.1 -Total Square Cm 5.50 -Exudate Amt Small -Exudate Type Serosanguineous -Wound Margin Distinct, Outline Attached -Granulation Amt Large (67-100%) -Granulation Quality Red -Texture (Julia-wound Skin Appearance) Assessed -Moisture (Julia-wound Skin Appearance) Assessed -Color (Julia-wound Skin Appearance) Assessed, Erythema -Temperature (Julia-wound Skin No Abnormality Appearance) (Pt Warm) -Ulcer Cleansing Soap and Water -Anesthetic Used 4% Lidocaine Solution Right Calf (cm) 46 Right Ankle (cm) 30 Left Calf (cm) 43 Left Ankle (cm) 30 WC - Nurse 2 - General Ulcer CM Notes Start: 05/25/23 11:43 Freq: Status: Active Protocol: Activity Type Activity Date Activity User E-sign Co-sign Detail Recorded Client Recorded Date Recorded By Document 05/30/23 15:17 Desktop 05/30/23 15:22 05/30/23 15:17 Wound Center Nurse 2 #4 RLE Lateral -Time 15:17 -Correct Patient Yes -Correct Side, Site, Position Yes -Correct Procedure Yes -Procedure Performed Yes -Type of Procedure Debridement -Clinical Debridement Subcutaneous -Tissue Removed Subcutaneous -Tunneling No -Undermining/Tunneling No -Circular Undermining No -Wound/Ulcer Outcome Not Healed -Ulcer Cleansing Rinsed/ Irrigated with Saline -Foul Odor after Cleansing No -Bioengineered Tissue No -Bleeding Controlled with Pressure -Treatment Response Procedure Tolerated Well -Offloading No -Debridement - Subq, 1st 20sq cm No #2 LLE Posterior -Time 15:18 -Correct Patient Yes -Correct Side, Site, Position Yes -Correct Procedure Yes -Procedure Performed Yes -Type of Procedure Debridement -Clinical Debridement Subcutaneous -Tissue Removed Subcutaneous -Tunneling No -Undermining/Tunneling No -Circular Undermining No -Wound/Ulcer Outcome Not Healed -Ulcer Cleansing Rinsed/ Irrigated with Saline -Foul Odor after Cleansing No -Bioengineered Tissue No -Bleeding Controlled with Pressure -Treatment Response Procedure Tolerated Well -Offloading No -Debridement - Subq, 1st 20sq cm No #3 RLE -Time 15:17 -Correct Patient Yes -Correct Side, Site, Position Yes -Correct Procedure Yes -Procedure Performed Yes -Type of Procedure Debridement -Clinical Debridement Subcutaneous -Tissue Removed Subcutaneous -Post Debridement (cm) - Length 7 -Post Debridement (cm) - Width 3.8 -Post Debridement (cm) - Depth 0.1 -Total Square (Post) (cm) 26.6 -Area of Debridement (cm) - Length 7 -Area of Debridement (cm) - Width 3.8 -Total Square (Area) (cm) 26.6 -Tunneling No -Undermining/Tunneling No -Circular Undermining No -Wound/Ulcer Outcome Not Healed -Ulcer Cleansing Rinsed/ Irrigated with Saline -Foul Odor after Cleansing No -Bioengineered Tissue No -Bleeding Controlled with Pressure -Treatment Response Procedure Tolerated Well -Offloading No -Debridement - Subq, 1st 20sq cm No #1 LLE Medial -Time 15:18 -Correct Patient Yes -Correct Side, Site, Position Yes -Correct Procedure Yes -Procedure Performed Yes -Type of Procedure Debridement -Clinical Debridement Subcutaneous -Tissue Removed Subcutaneous -Post Debridement (cm) - Length 10.0 -Post Debridement (cm) - Width 3.5 -Post Debridement (cm) - Depth 0.1 -Total Square (Post) (cm) 35.00 -Area of Debridement (cm) - Length 10 -Area of Debridement (cm) - Width 3.5 -Total Square (Area) (cm) 35.0 -Tunneling No -Undermining/Tunneling No -Circular Undermining No -Wound/Ulcer Outcome Not Healed -Ulcer Cleansing Rinsed/ Irrigated with Saline -Foul Odor after Cleansing No -Bioengineered Tissue No -Bleeding Controlled with Pressure -Treatment Response Procedure Tolerated Well -Offloading No -Debridement - Subq, 1st 20sq cm Yes -Debridement, SubQ, ea addt'l 20sq cm 3 or part thereof Pain Scale: 0-10 Numeric Is Patient Pain Free? Yes WC - Nurse 3 - General Ulcer D/C NN Start: 05/25/23 11:43 Freq: Status: Active Protocol: Activity Type Activity Date Activity User E-sign Co-sign Detail Recorded Client Recorded Date Recorded By Document 05/25/23 11:44 MT [id number] 05/25/23 11:58 MT Document 05/30/23 15:33 KW Desktop 05/30/23 15:35 KW 05/25/23 05/30/23 11:44 15:33 Wound Care Center Nurse 3 #4 RLE Lateral -Ulcer Cleansing Soap and Water -Primary Dressing Applied Promogran -Other Dressing adaptic -Promogran 3 #2 LLE Posterior -Ulcer Cleansing Soap and Water -Primary Dressing Applied Optilok 8x12 -Optilok 8x12 3 #3 RLE -Primary Dressing Applied NonAdherent Contact Layer, Other -Other Dressing cast padding #1 LLE Medial -Primary Dressing Applied NonAdherent Contact Layer, Other -Other Dressing casting pad BLE -Multi-Layered Wrap Application Unna Boot - Bilateral ($) Right -Multi-Layered Wrap Application Multi-Layer Comp - Right ($ ) Left -Multi-Layered Wrap Application Multi-Layer Comp - Left ($) Pain Scale: 0-10 Numeric Is Patient Pain Free? Yes Yes WC - Visit Discharge Discharge Condition Stable Stable Ambulatory Status Ambulatory Cane Transportation Private Auto Private Auto Medication Reconcilliation completed & No No provided to patient/care provider Clinical Summary of Care Provided Yes Yes Notes: nurse visit Assessment/Plan Assessment/Plan (1) Non-pressure chronic ulcer of other part of right lower leg with fat layer exposed: CODE(S): L97.812 - Non-pressure chronic ulcer of other part of right lower leg with fat layer exposed PLAN: Patient was examined and evaluated. All findings were discussed with the patient. All questions were answered to the patient's satisfaction. Excisional debridement down to and including subcutaneous tissue of the right lower extremity full-thickness ulceration with a 5 mm dermal curette. Predebridement measurements are 6.8 x 3.5 x 0.1 cm. Postdebridement measurement is 7.0 x 3.8 x 0.1 cm. Excisional debridement down to and including subcutaneous tissue of the left lower extremity full-thickness ulceration with a 5 mm dermal curette. Predebridement measurement is 9.5 x 3.0 x 0.1 cm. Postdebridement measurement is 10.0 x 3.5 x 0.1 cm. The patient's bilateral ulceration was dressed with Xeroform and a multilayer compression bandage was applied to the bilateral lower extremity. Patient and his were instructed to leave the dressing clean dry and intact. They were educated that if they notice strikethrough they are to call the wound care center and follow-up for a nurse visit for multilayer compression dressing change. Patient is understanding of this. We begin authorization for skin graft substitute after a total of 4 weeks of treatment. Patient was also given order for venous and arterial studies. Follow-up at the wound care center with Dr. Caimlo in 1 week. (2) Non-pressure chronic ulcer of other part of left lower leg with fat layer exposed: CODE(S): L97.822 - Non-pressure chronic ulcer of other part of left lower leg with fat layer exposed (3) Other specified peripheral vascular diseases: CODE(S): I73.89 - Other specified peripheral vascular diseases
[2023-06-01 11:21] VITALS: BP 122/53; PULSE 75; RESP 18; TEMP 36.2; BMI 39.0
[2023-06-06 15:10] VITALS: BP 163/71; PULSE 73; RESP 18; BMI 39.0
--- NOTE | 2023-06-06 16:29 | PN.PCM_ITS ---
History of Present Illness Date of Service: 06/06/23 Chief Complaint: Bilateral lower extremity ulcerations, swelling, edema, and lymphedema History of Wound: This is an 82-year-old male who presents with a longstanding history of swelling, edema, and lymphedema in his lower extremities. The patient has recently developed ulcerations in both lower extremities. These ulcerations began as blisters. They were associated with severe swelling, edema, and lymphedema. It appears as though the patient's presenting symptoms and manifestations are related to his daily habits. The patient sleeps in a chair. He does so due to sleep apnea. He is not active. He spends a large part of each day sitting. He requires a cane for ambulation. He denies a history of thrombophlebitis. His relates that the swelling and edema in his lower extremities was minimized after a week in the intensive care unit for treatment of other problems. This was likely due to the patient's confinement to bed, with his legs elevated to heart level. Patient had blood work performed on May 17, 2023, with results as follows: White blood count 10.6, hemoglobin 11.8, hematocrit 37.4, platelets 169,000, iron 62, TIBC 316, ferritin 568. The patient has a history of pre-existing medical problems and prior proc edures, which are listed below. Subjective Subjective Mr. Joyce is a 82-year-old male presenting for follow-up and evaluation of bilateral lower extremity ulcerations and swelling at the wound care center at [facility]. Patient was seen by an outside provider. Patient is following up with Dr. Camilo for continued evaluation and treatment to the patient's bilateral lower extremity ulcerations and swelling. Patient is not a diabetic. Patient admits to improvement when being evaluated today. Denies trauma. Denies constitutional symptoms. Other pedal complaints at this time. Objective Data Objective Data Vital Signs: Vital Signs Temp Pulse Resp BP O2 Del Method 97.2 F L 73 18 163/71 H Room Air 06/01/23 11:21 06/06/23 15:10 06/06/23 15:10 06/06/23 15:10 06/06/23 15:10 Oxygen Delivery Method Room Air Weight: 109.769 kg Body Mass Index (BMI) 39.0 Physical Exam Narrative Vascular: DP and PT pulse are palpable. CFT is brisk. +1 pitting edema appreciated bilateral lower extremity. Evidence of hemosiderin deposits are appreciated bilateral lower extremity. Skin temperature great is warm to warm from proximal ankle to distal digits bilateral. No increase in focal warmth is appreciated. Neurological: Light touch and epicritic station is intact. Patient responds to painful stimuli. Dermatological: Full-thickness ulcerations appreciated to the bilateral lower extremity. The right lower extremity ulceration measures 2.5 x 2.5 x 0.1 cm. Left lower extremity ulceration measures 2.4 x 1.7 x 0.1 cm. All ulcerations wound base is 100% granular nature. Evidence of serous drainage. +1 pitting edema is appreciated bilateral lower extremity. Evidence of hemosiderin deposit s are appreciated. Excisional debridement down to and including subcutaneous tissue of the right lower extremity full-thickness ulceration with a 5 mm dermal curette. Predebridement measurements are 2.3 x 2.3 x 0.1 cm. Postdebridement measurement is 2.5 x 2.5 x 0.1 cm. Excisional debridement down to and including subcutaneous tissue of the left lower extremity full-thickness ulceration with a 5 mm dermal curette. Predebridement measurement is 2.3 x 1.5 x 0.1 cm. Postdebridement measurement is 2.4 x 1.7 x 0.1 cm. Musculoskeletal: No strength 5 and 5 bilaterally. Mild pain on palpation to bilateral full-thickness ulcerations. No pain with calf compression. Debridement Note Debridement Note Debridement Free Text: Excisional debridement down to and including subcutaneous tissue of the right lower extremity full-thickness ulceration with a 5 mm dermal curette. Predebridement measurements are 2.3 x 2.3 x 0.1 cm. Postdebridement measurement is 2.5 x 2.5 x 0.1 cm. Excisional debridement down to and including subcutaneous tissue of the left lower extremity full-thickness ulceration with a 5 mm dermal curette. Predebridement measurement is 2.3 x 1.5 x 0.1 cm. Postdebridement measurement is 2.4 x 1.7 x 0.1 cm. Post-Debridement Measurements and Additional Note: Post-Debridement Measurements/Treatment RAMÓN - Nurse 1 - General Ulcer Assessment Start: 05/25/23 11:43 Freq: Status: Active Protocol: LOWEXT Activity Type Activity Date Activity User E-sign Co-sign Detail Recorded Client Recorded Date Recorded By Document 05/30/23 14:43 KW Desktop 05/30/23 15:04 KW Document 06/01/23 11:21 KW Desktop 06/01/23 11:32 KW Document 06/06/23 15:10 KW Desktop 06/06/23 15:27 KW 05/30/23 06/01/23 06/06/23 14:43 11:21 15:10 - Today's Visit Information Type of service Follow-up Visit Nurse-only Follow-up Visit (Physician/JEWEL GAUGER Visit (Physician/JEWEL GAUGER ) ) Arrival Mode Ambulatory,Cane Ambulatory,Cane Patient Identification Verified (Name & Yes Yes Yes ) Height and Weight Body Mass Index (BMI) 39.0 39.0 39.0 BMI Classification Obese Obese Obese Vital Signs Temperature (97.8 F-99.1 F) 96.3 F L 97.2 F L Temperature Source Temporal Temporal Pulse Rate (60-100) 81 75 73 Pulse Location Monitor Monitor Monitor Respiratory Rate (12-18) 18 18 18 Respiratory rate source Observation Observation Observation Oxygen Delivery Method Room Air Room Air Room Air Blood Pressure (90/60-120/80) 144/64 H 122/53 H 163/71 H Blood Pressure Mean (mm Hg) 90 76 101 Source Monitor Monitor Monitor Position Supine Semi-Fowlers Semi-Fowlers Blood Pressure Location Left Forearm Left Arm Left Arm History Since Last Visit- (Skip if this is Patient's initial visit) Have you changed medications since your No No No last visit? Any new allergies or adverse reactions No No No Had a fall/change in ADL's that may No No No increase risk of falls Signs or symptoms of abuse and/or No No No neglect since last visit Have you been in the hospital since your No No No last visit? Has dressing in place as prescribed Yes Yes Yes Has compression in place as prescribed Yes Yes Yes Has offloadiing in place as prescribed N/A N/A N/A Experienced any changes in pain level or No No No management Left Footwear Regular Shoe Regular Shoe Regular Shoe Right Footwear Regular Shoe Regular Shoe Regular Shoe Pain Scale: 0-10 Numeric Is Patient Pain Free? Yes Yes Yes - Nurse 1 - General Ulcer Measurement Start: 05/25/23 11:43 Freq: Status: Active Protocol: Activity Type Activity Date Activity User E-sign Co-sign Detail Recorded Client Recorded Date Recorded By Document 05/30/23 14:43 KW Desktop 05/30/23 15:04 KW Document 06/01/23 11:21 KW Desktop 06/01/23 11:32 KW Document 06/06/23 15:10 KW Desktop 06/06/23 15:27 KW 05/30/23 06/01/23 06/06/23 14:43 11:21 15:10 Wound Center Nurse 1 #4 RLE Lateral -Current Size (cm) - Length 8.7 -Current Size (cm) - Width 4 -Current Size (cm) - Depth 0.2 -Total Square Cm 34.8 -Exudate Amt Small -Exudate Type Serosanguineous -Wound Margin Distinct, Outline Attached -Granulation Amt Large (67-100%) -Granulation Quality Red -Texture (Julia-wound Skin Appearance) Assessed -Moisture (Julia-wound Skin Appearance) Maceration -Color (Julia-wound Skin Appearance) Assessed, Erythema -Temperature (Julia-wound Skin No Abnormality Appearance) (Pt Warm) -Ulcer Cleansing Soap and Water -Foul Odor after Cleansing No -Anesthetic Used 4% Lidocaine Solution #2 LLE Posterior -Current Size (cm) - Length 2.2 -Current Size (cm) - Width 1 -Current Size (cm) - Depth 0.2 -Total Square Cm 2.2 -Exudate Amt Medium -Exudate Type Serosanguineous -Wound Margin Distinct, Outline Attached -Granulation Amt Large (67-100%) -Granulation Quality [facility] -Necrosis Amt Medium (34-66%) -Necrotic Tissue Type Adherent Slough -Texture (Julia-wound Skin Appearance) Assessed -Moisture (Julia-wound Skin Appearance) Assessed, Maceration -Color (Julia-wound Skin Appearance) Assessed, Erythema -Temperature (Julia-wound Skin No Abnormality Appearance) (Pt Warm) -Ulcer Cleansing Soap and Water -Anesthetic Used 4% Lidocaine Solution #3 RLE -Current Size (cm) - Length 3 3 -Current Size (cm) - Width 2.7 2 -Current Size (cm) - Depth 0.1 0.1 -Total Square Cm 8.1 6 -Exudate Amt Medium Small -Exudate Type Serosanguineous Serosanguineous -Wound Margin Distinct, Distinct, Outline Outline Attached Attached -Granulation Amt Small (1-33%) Large (67-100%) -Granulation Quality Red [place] -Necrosis Amt Medium (34-66%) -Necrotic Tissue Type Adherent Slough -Texture (Julia-wound Skin Appearance) Assessed Assessed -Moisture (Julia-wound Skin Appearance) Assessed Assessed -Color (Julia-wound Skin Appearance) Assessed Assessed -Temperature (Julia-wound Skin No Abnormality No Abnormality Appearance) (Pt Warm) (Pt Warm) -Ulcer Cleansing Soap and Water Soap and Water -Foul Odor after Cleansing No -Anesthetic Used 4% Lidocaine 4% Lidocaine Solution Solution -Wound Comment(s) scabbing #1 LLE Medial -Current Size (cm) - Length 2.2 7.7 -Current Size (cm) - Width 2.5 1 -Current Size (cm) - Depth 0.1 0.1 -Total Square Cm 5.50 7.7 -Exudate Amt Small Small -Exudate Type Serosanguineous Serosanguineous -Wound Margin Distinct, Distinct, Outline Outline Attached Attached -Granulation Amt Large (67-100%) Large (67-100%) -Granulation Quality Red [place] -Texture (Julia-wound Skin Appearance) Assessed Assessed -Moisture (Julia-wound Skin Appearance) Assessed Assessed -Color (Julia-wound Skin Appearance) Assessed, Assessed, Erythema Erythema -Temperature (Julia-wound Skin No Abnormality Appearance) (Pt Warm) -Tenderness on Palpation (Julia-wound No Skin Appearance) -Ulcer Cleansing Soap and Water Soap and Water -Foul Odor after Cleansing No -Anesthetic Used 4% Lidocaine 4% Lidocaine Solution Solution Lower Limb Edema Present Yes Right Calf (cm) 46 44 42.5 Right Ankle (cm) 30 28.6 27.5 Left Calf (cm) 43 43 41.5 Left Ankle (cm) 30 29 29.5 WC - Nurse 2 - General Ulcer CM Notes Start: 05/25/23 11:43 Freq: Status: Active Protocol: Activity Type Activity Date Activity User E-sign Co-sign Detail Recorded Client Recorded Date Recorded By Document 05/30/23 15:17 Desktop 05/30/23 15:22 Document 06/06/23 15:30 Laptop 06/06/23 15:34 05/30/23 06/06/23 15:17 15:30 Wound Center Nurse 2 #4 RLE Lateral -Time 15:17 -Correct Patient Yes -Correct Side, Site, Position Yes -Correct Procedure Yes -Procedure Performed Yes -Type of Procedure Debridement -Clinical Debridement Subcutaneous -Tissue Removed Subcutaneous -Tunneling No -Undermining/Tunneling No -Circular Undermining No -Wound/Ulcer Outcome Not Healed -Ulcer Cleansing Rinsed/ Irrigated with Saline -Foul Odor after Cleansing No -Bioengineered Tissue No -Bleeding Controlled with Pressure -Treatment Response Procedure Tolerated Well -Offloading No -Debridement - Subq, 1st 20sq cm No #2 LLE Posterior -Time 15:18 -Correct Patient Yes -Correct Side, Site, Position Yes -Correct Procedure Yes -Procedure Performed Yes -Type of Procedure Debridement -Clinical Debridement Subcutaneous -Tissue Removed Subcutaneous -Tunneling No -Undermining/Tunneling No -Circular Undermining No -Wound/Ulcer Outcome Not Healed -Ulcer Cleansing Rinsed/ Irrigated with Saline -Foul Odor after Cleansing No -Bioengineered Tissue No -Bleeding Controlled with Pressure -Treatment Response Procedure Tolerated Well -Offloading No -Debridement - Subq, 1st 20sq cm No #3 RLE -Time 15:17 15:33 -Correct Patient Yes Yes -Correct Side, Site, Position Yes Yes -Correct Procedure Yes Yes -Procedure Performed Yes Yes -Type of Procedure Debridement Debridement -Clinical Debridement Subcutaneous Subcutaneous -Tissue Removed Subcutaneous Subcutaneous -Post Debridement (cm) - Length 7 2.5 -Post Debridement (cm) - Width 3.8 2.5 -Post Debridement (cm) - Depth 0.1 0.1 -Total Square (Post) (cm) 26.6 6.25 -Area of Debridement (cm) - Length 7 2.5 -Area of Debridement (cm) - Width 3.8 2.5 -Total Square (Area) (cm) 26.6 6.25 -Tunneling No No -Undermining/Tunneling No No -Circular Undermining No No -Wound/Ulcer Outcome Not Healed Not Healed -Ulcer Cleansing Rinsed/ Rinsed/ Irrigated with Irrigated with Saline Saline -Foul Odor after Cleansing No No -Bioengineered Tissue No No -Bleeding Controlled with Pressure Pressure -Treatment Response Procedure Procedure Tolerated Well Tolerated Well -Offloading No No -Debridement - Subq, 1st 20sq cm No No #1 LLE Medial -Time 15:18 15:33 -Correct Patient Yes Yes -Correct Side, Site, Position Yes Yes -Correct Procedure Yes Yes -Procedure Performed Yes Yes -Type of Procedure Debridement Debridement -Clinical Debridement Subcutaneous Subcutaneous -Tissue Removed Subcutaneous Subcutaneous -Post Debridement (cm) - Length 10.0 2.4 -Post Debridement (cm) - Width 3.5 1.7 -Post Debridement (cm) - Depth 0.1 0.1 -Total Square (Post) (cm) 35.00 4.08 -Area of Debridement (cm) - Length 10 2.4 -Area of Debridement (cm) - Width 3.5 1.7 -Total Square (Area) (cm) 35.0 4.08 -Tunneling No No -Undermining/Tunneling No No -Circular Undermining No No -Wound/Ulcer Outcome Not Healed Not Healed -Ulcer Cleansing Rinsed/ Rinsed/ Irrigated with Irrigated with Saline Saline -Foul Odor after Cleansing No No -Bioengineered Tissue No No -Bleeding Controlled with Pressure Pressure -Treatment Response Procedure Procedure Tolerated Well Tolerated Well -Offloading No No -Debridement - Subq, 1st 20sq cm Yes Yes -Debridement, SubQ, ea addt'l 20sq cm 3 or part thereof Pain Scale: 0-10 Numeric Is Patient Pain Free? Yes Yes - Nurse 3 - General Ulcer D/C NN Start: 05/25/23 11:43 Freq: Status: Active Protocol: Activity Type Activity Date Activity User E-sign Co-sign Detail Recorded Client Recorded Date Recorded By Document 05/25/23 11:44 MT [id number] 05/25/23 11:58 MT Document 05/30/23 15:33 KW Desktop 05/30/23 15:35 KW Document 06/01/23 11:21 KW Desktop 06/01/23 11:32 KW Document 06/06/23 15:56 GM Desktop 06/06/23 15:57 GM 05/25/23 05/30/23 06/01/23 11:44 15:33 11:21 Wound Care Center Nurse 3 #4 RLE Lateral -Ulcer Cleansing Soap and Water -Primary Dressing Applied Promogran -Other Dressing adaptic -Promogran 3 #2 LLE Posterior -Ulcer Cleansing Soap and Water -Primary Dressing Applied Optilok 8x12 -Optilok 8x12 3 #3 RLE -Ulcer Cleansing Soap and Water -Foul Odor after Cleansing -Primary Dressing Applied NonAdherent NonAdherent Contact Layer, Contact Layer Other -Other Dressing cast padding cast padding -Primary Dressing Covered/Secured with #1 LLE Medial -Ulcer Cleansing -Foul Odor after Cleansing -Primary Dressing Applied NonAdherent NonAdherent Contact Layer, Contact Layer Other -Other Dressing casting pad cast padding -Primary Dressing Covered/Secured with BLE -Lotion applied to leg before compression wrap -Multi-Layered Wrap Application Unna Boot - Unna Boot - Bilateral ($) Bilateral ($) Right -Multi-Layered Wrap Application Multi-Layer Comp - Right ($ ) Left -Multi-Layered Wrap Application Multi-Layer Comp - Left ($) Vital Signs Temperature (97.8 F-99.1 F) 97.2 F L Temperature Source Temporal Pulse Rate (60-100) 75 Pulse Location Monitor Respiratory Rate (12-18) 18 Respiratory rate source Observation Oxygen Delivery Method Room Air Blood Pressure (90/60-120/80) 122/53 H Blood Pressure Mean (mm Hg) 76 Source Monitor Position Semi-Fowlers Blood Pressure Location Left Arm Pain Scale: 0-10 Numeric Is Patient Pain Free? Yes Yes Yes Teaching: Wound Center *Wound/Skin Impairment -Person Taught -Teaching Method -Response to teaching WC - Visit Discharge Discharge Condition Stable Stable Stable Ambulatory Status Ambulatory Cane Ambulatory, Walker Transportation Private Auto Private Auto Private Auto Medication Reconcilliation completed & No No No provided to patient/care provider Clinical Summary of Care Provided Yes Yes Yes Notes: nurse visit 06/06/23 15:56 Wound Care Center Nurse 3 #4 RLE Lateral -Ulcer Cleansing -Primary Dressing Applied -Other Dressing -Promogran #2 LLE Posterior -Ulcer Cleansing -Primary Dressing Applied -Optilok 8x12 #3 RLE -Ulcer Cleansing Not Cleansed -Foul Odor after Cleansing No -Primary Dressing Applied NonAdherent Contact Layer -Other Dressing xeroform -Primary Dressing Covered/Secured with Dry Gauze & Roll Gauze, Secured with Tape #1 LLE Medial -Ulcer Cleansing Not Cleansed -Foul Odor after Cleansing No -Primary Dressing Applied -Other Dressing -Primary Dressing Covered/Secured with Dry Gauze & Roll Gauze BLE -Lotion applied to leg before No compression wrap -Multi-Layered Wrap Application Unna Boot - Bilateral ($) Right -Multi-Layered Wrap Application Left -Multi-Layered Wrap Application Vital Signs Temperature (97.8 F-99.1 F) Temperature Source Pulse Rate (60-100) Pulse Location Respiratory Rate (12-18) Respiratory rate source Oxygen Delivery Method Blood Pressure (90/60-120/80) Blood Pressure Mean (mm Hg) Source Position Blood Pressure Location Pain Scale: 0-10 Numeric Is Patient Pain Free? Yes Teaching: Wound Center *Wound/Skin Impairment -Person Taught Patient -Teaching Method Discussion, Demonstration -Response to teaching Verbalize understanding WC - Visit Discharge Discharge Condition Stable Ambulatory Status Ambulatory Transportation Private Auto Medication Reconcilliation completed & Yes provided to patient/care provider Clinical Summary of Care Provided Yes Notes: Assessment/Plan Assessment/Plan (1) Non-pressure chronic ulcer of other part of left lower leg with fat layer exposed: CODE(S): L97.822 - Non-pressure chronic ulcer of other part of left lower leg with fat layer exposed PLAN: Patient was examined and evaluated. All findings were discussed with the patient. All questions were answered to the patient's satisfaction. Excisional debridement down to and including subcutaneous tissue of the right lower extremity full-thickness ulceration with a 5 mm dermal curette. Predebridement measurements are 2.3 x 2.3 x 0.1 cm. Postdebridement measurement is 2.5 x 2.5 x 0.1 cm. Excisional debridement down to and including subcutaneous tissue of the left lower extremity full-thickness ulceration with a 5 mm dermal curette. Predebridement measurement is 2.3 x 1.5 x 0.1 cm. Postdebridement measurement is 2.4 x 1.7 x 0.1 cm. Patient was placed in multilayer compression bandage. He is to keep them clean dry and intact. Do not remove. Follow-up at the wound care center with Dr. Camilo in 1 week. (2) Non-pressure chronic ulcer of other part of right lower leg with fat layer exposed: CODE(S): L97.812 - Non-pressure chronic ulcer of other part of right lower leg with fat layer exposed (3) Other specified peripheral vascular diseases: CODE(S): I73.89 - Other specified peripheral vascular diseases
[2023-06-11 14:07] VITALS: BP 129/63; PULSE 75; RESP 18; TEMP 36.2; BMI 39.0
[2023-06-13 13:45] VITALS: BP 151/60; PULSE 78; RESP 18; TEMP 35.7; BMI 39.0
--- NOTE | 2023-06-13 20:33 | PN.PCM_ITS ---
History of Present Illness Date of Service: 06/13/23 Chief Complaint: Bilateral lower extremity ulcerations, swelling, edema, and lymphedema History of Wound: This is an 82-year-old male who presents with a longstanding history of swelling, edema, and lymphedema in his lower extremities. The patient has recently developed ulcerations in both lower extremities. These ulcerations began as blisters. They were associated with severe swelling, edema, and lymphedema. It appears as though the patient's presenting symptoms and manifestations are related to his daily habits. The patient sleeps in a chair. He does so due to sleep apnea. He is not active. He spends a large part of each day sitting. He requires a cane for ambulation. He denies a history of thrombophlebitis. His relates that the swelling and edema in his lower extremities was minimized after a week in the intensive care unit for treatment of other problems. This was likely due to the patient's confinement to bed, with his legs elevated to heart level. Patient had blood work performed on May 17, 2023, with results as follows: White blood count 10.6, hemoglobin 11.8, hematocrit 37.4, platelets 169,000, iron 62, TIBC 316, ferritin 568. The patient has a history of pre-existing medical problems and prior proc edures, which are listed below. Subjective Subjective Mr. Joyce is a 82-year-old male presenting for follow-up and evaluation of bilateral lower extremity ulcerations and swelling at the wound care center at [facility]. Patient was seen by an outside provider. Patient is following up with Dr. Camilo for continued evaluation and treatment to the patient's bilateral lower extremity ulcerations and swelling. Patient is not a diabetic. Patient admits to improvement when being evaluated today. Denies trauma. Denies constitutional symptoms. Other pedal complaints at this time. Objective Data Objective Data Vital Signs: Vital Signs Temp Pulse Resp BP O2 Del Method 96.2 F L 78 18 151/60 H Room Air 06/13/23 13:45 06/13/23 13:45 06/13/23 13:45 06/13/23 13:45 06/13/23 13:45 Oxygen Delivery Method Room Air Weight: 109.769 kg Body Mass Index (BMI) 39.0 Physical Exam Narrative Vascular: DP and PT pulse are palpable. CFT is brisk. +1 pitting edema appreciated bilateral lower extremity. Evidence of hemosiderin deposits are appreciated bilateral lower extremity. Skin temperature great is warm to warm from proximal ankle to distal digits bilateral. No increase in focal warmth is appreciated. Neurological: Light touch and epicritic station is intact. Patient responds to painful stimuli. Dermatological: Full-thickness ulcerations appreciated to the bilateral lower extremity. The right lower extremity ulceration is now healed. Left lower extremity ulceration measures 1.3 x 1.0 x 0.1 cm. All ulcerations wound base is 100% granular nature. Evidence of serous drainage. +1 pitting edema is appreciated bilateral lower extremity. Evidence of hemosiderin deposits are appreciated. Excisional debridement down to and including subcutaneous tissue of the left lower extremity full-thickness ulceration with a 5 mm dermal curette. Predebridement measurement is 1.0 x 0.8 x 0.1 cm. Postdebridement measurement is 1.3 x 1.0 x 0.1 cm. Musculoskeletal: No strength 5 and 5 bilaterally. Mild pain on palpation to bilateral full-thickness ulcerations. No pain with calf compression. Debridement Note Debridement Note Debridement Free Text: Excisional debridement down to and including subcutaneous tissue of the left lower extremity full-thickness ulceration with a 5 mm dermal curette. Predebridement measurement is 1.0 x 0.8 x 0.1 cm. Postdebridement measurement is 1.3 x 1.0 x 0.1 cm. Post-Debridement Measurements and Additional Note: Post-Debridement Measurements/Treatment RAMÓN - Nurse 1 - General Ulcer Assessment Start: 05/25/23 11:43 Freq: Status: Active Protocol: YEYO Activity Type Activity Date Activity User E-sign Co-sign Detail Recorded Client Recorded Date Recorded By Document 05/30/23 14:43 KW Desktop 05/30/23 15:04 KW Document 06/01/23 11:21 KW Desktop 06/01/23 11:32 KW Document 06/06/23 15:10 KW Desktop 06/06/23 15:27 KW Document 06/11/23 14:07 DL Desktop 06/11/23 14:13 DL Document 06/13/23 13:45 DL Desktop 06/13/23 13:51 DL 05/30/23 06/01/23 06/06/23 14:43 11:21 15:10 - Today's Visit Information Type of service Follow-up Visit Nurse-only Follow-up Visit (Physician/FEATHER BALER Visit (Physician/FEATHER BALER ) ) Arrival Mode Ambulatory,Cane Ambulatory,Cane Transfer Assistance Accompanied by Patient Identification Verified (Name & Yes Yes Yes ) Patient Requires Transmission-Based Precautions Safety Precautions Height and Weight Body Mass Index (BMI) 39.0 39.0 39.0 BMI Classification Obese Obese Obese Vital Signs Temperature (97.8 F-99.1 F) 96.3 F L 97.2 F L Temperature Source Temporal Temporal Pulse Rate (60-100) 81 75 73 Pulse Location Monitor Monitor Monitor Respiratory Rate (12-18) 18 18 18 Respiratory rate source Observation Observation Observation Oxygen Delivery Method Room Air Room Air Room Air Blood Pressure (90/60-120/80) 144/64 H 122/53 H 163/71 H Blood Pressure Mean (mm Hg) 90 76 101 Source Monitor Monitor Monitor Position Supine Semi-Fowlers Semi-Fowlers Blood Pressure Location Left Forearm Left Arm Left Arm History Since Last Visit- (Skip if this is Patient's initial visit) Have you changed medications since your No No No last visit? Any new allergies or adverse reactions No No No Had a fall/change in ADL's that may No No No increase risk of falls Signs or symptoms of abuse and/or No No No neglect since last visit Have you been in the hospital since your No No No last visit? Has dressing in place as prescribed Yes Yes Yes Has compression in place as prescribed Yes Yes Yes Has offloadiing in place as prescribed N/A N/A N/A Experienced any changes in pain level or No No No management Left Footwear Regular Shoe Regular Shoe Regular Shoe Right Footwear Regular Shoe Regular Shoe Regular Shoe Pain Scale: 0-10 Numeric Is Patient Pain Free? Yes Yes Yes 06/11/23 06/13/23 14:07 13:45 - Today's Visit Information Type of service Nurse-only Follow-up Visit Visit (Physician/FEATHER BALER ) Arrival Mode Ambulatory,Cane Ambulatory,Cane Transfer Assistance None Accompanied by Patient Identification Verified (Name & Yes Yes ) Patient Requires Transmission-Based No Precautions Safety Precautions Fall Prevention Height and Weight Body Mass Index (BMI) 39.0 39.0 BMI Classification Obese Obese Vital Signs Temperature (97.8 F-99.1 F) 97.1 F L 96.2 F L Temperature Source Temporal Temporal Pulse Rate (60-100) 75 78 Pulse Location Monitor Monitor Respiratory Rate (12-18) 18 18 Respiratory rate source Observation Observation Oxygen Delivery Method Room Air Blood Pressure (90/60-120/80) 129/63 H 151/60 H Blood Pressure Mean (mm Hg) 85 90 Source Monitor Monitor Position Semi-Fowlers Blood Pressure Location Left Arm History Since Last Visit- (Skip if this is Patient's initial visit) Have you changed medications since your No No last visit? Any new allergies or adverse reactions No No Had a fall/change in ADL's that may No No increase risk of falls Signs or symptoms of abuse and/or No No neglect since last visit Have you been in the hospital since your No No last visit? Has dressing in place as prescribed Yes Yes Has compression in place as prescribed Yes Yes Has offloadiing in place as prescribed N/A N/A Experienced any changes in pain level or No No management Left Footwear Regular Shoe Right Footwear Regular Shoe Pain Scale: 0-10 Numeric Is Patient Pain Free? Yes Yes WC - Nurse 1 - General Ulcer Measurement Start: 05/25/23 11:43 Freq: Status: Active Protocol: Activity Type Activity Date Activity User E-sign Co-sign Detail Recorded Client Recorded Date Recorded By Document 05/30/23 14:43 KW Desktop 05/30/23 15:04 KW Document 06/01/23 11:21 KW Desktop 06/01/23 11:32 KW Document 06/06/23 15:10 KW Desktop 06/06/23 15:27 KW Document 06/11/23 14:07 DL Desktop 06/11/23 14:13 DL Document 06/13/23 13:45 DL Desktop 06/13/23 13:51 DL 05/30/23 06/01/23 06/06/23 14:43 11:21 15:10 Wound Center Nurse 1 #4 RLE Lateral -Current Size (cm) - Length 8.7 -Current Size (cm) - Width 4 -Current Size (cm) - Depth 0.2 -Total Square Cm 34.8 -Exudate Amt Small -Exudate Type Serosanguineous -Wound Margin Distinct, Outline Attached -Granulation Amt Large (67-100%) -Granulation Quality Red -Texture (Julia-wound Skin Appearance) Assessed -Moisture (Julia-wound Skin Appearance) Maceration -Color (Julia-wound Skin Appearance) Assessed, Erythema -Temperature (Julia-wound Skin No Abnormality Appearance) (Pt Warm) -Ulcer Cleansing Soap and Water -Foul Odor after Cleansing No -Anesthetic Used 4% Lidocaine Solution #3 RLE -Current Size (cm) - Length 3 3 -Current Size (cm) - Width 2.7 2 -Current Size (cm) - Depth 0.1 0.1 -Total Square Cm 8.1 6 -Exudate Amt Medium Small -Exudate Type Serosanguineous Serosanguineous -Wound Margin Distinct, Distinct, Outline Outline Attached Attached -Granulation Amt Small (1-33%) Large (67-100%) -Granulation Quality [place] -Necrosis Amt Medium (34-66%) -Necrotic Tissue Type Adherent Slough -Structure Exposed -Texture (Julia-wound Skin Appearance) Assessed Assessed -Moisture (Julia-wound Skin Appearance) Assessed Assessed -Color (Julia-wound Skin Appearance) Assessed Assessed -Temperature (Julia-wound Skin No Abnormality No Abnormality Appearance) (Pt Warm) (Pt Warm) -Tenderness on Palpation (Julia-wound Skin Appearance) -Ulcer Cleansing Soap and Water Soap and Water -Foul Odor after Cleansing No -Anesthetic Used 4% Lidocaine 4% Lidocaine Solution Solution -Wound Comment(s) scabbing #2 LLE Posterior -Current Size (cm) - Length 2.2 -Current Size (cm) - Width 1 -Current Size (cm) - Depth 0.2 -Total Square Cm 2.2 -Exudate Amt Medium -Exudate Type Serosanguineous -Wound Margin Distinct, Outline Attached -Granulation Amt Large (67-100%) -Granulation Quality [place] -Necrosis Amt Medium (34-66%) -Necrotic Tissue Type Adherent Slough -Texture (Julia-wound Skin Appearance) Assessed -Moisture (Julia-wound Skin Appearance) Assessed, Maceration -Color (Julia-wound Skin Appearance) Assessed, Erythema -Temperature (Julia-wound Skin No Abnormality Appearance) (Pt Warm) -Ulcer Cleansing Soap and Water -Anesthetic Used 4% Lidocaine Solution #1 LLE Medial -Current Size (cm) - Length 2.2 7.7 -Current Size (cm) - Width 2.5 1 -Current Size (cm) - Depth 0.1 0.1 -Total Square Cm 5.50 7.7 -Exudate Amt Small Small -Exudate Type Serosanguineous Serosanguineous -Wound Margin Distinct, Distinct, Outline Outline Attached Attached -Granulation Amt Large (67-100%) Large (67-100%) -Granulation Quality [place] -Texture (Julia-wound Skin Appearance) Assessed Assessed -Moisture (Julia-wound Skin Appearance) Assessed Assessed -Color (Julia-wound Skin Appearance) Assessed, Assessed, Erythema Erythema -Temperature (Julia-wound Skin No Abnormality Appearance) (Pt Warm) -Tenderness on Palpation (Julia-wound No Skin Appearance) -Ulcer Cleansing Soap and Water Soap and Water -Foul Odor after Cleansing No -Anesthetic Used 4% Lidocaine 4% Lidocaine Solution Solution Lower Limb Edema Present Yes Right Calf (cm) 46 44 42.5 Right Ankle (cm) 30 28.6 27.5 Left Calf (cm) 43 43 41.5 Left Ankle (cm) 30 29 29.5 06/11/23 06/13/23 14:07 13:45 Wound Center Nurse 1 #4 RLE Lateral -Current Size (cm) - Length -Current Size (cm) - Width -Current Size (cm) - Depth -Total Square Cm -Exudate Amt -Exudate Type -Wound Margin -Granulation Amt -Granulation Quality -Texture (Julia-wound Skin Appearance) -Moisture (Julia-wound Skin Appearance) -Color (Julia-wound Skin Appearance) -Temperature (Julia-wound Skin Appearance) -Ulcer Cleansing -Foul Odor after Cleansing -Anesthetic Used #3 RLE -Current Size (cm) - Length -Current Size (cm) - Width -Current Size (cm) - Depth -Total Square Cm -Exudate Amt None Present -Exudate Type -Wound Margin Flat & Intact -Granulation Amt Large (67-100%) -Granulation Quality [place] -Necrosis Amt None Present (0 %) -Necrotic Tissue Type -Structure Exposed N/A -Texture (Julia-wound Skin Appearance) Scarring -Moisture (Julia-wound Skin Appearance) Dry/Scaly -Color (Julia-wound Skin Appearance) No Abnormality -Temperature (Julia-wound Skin No Abnormality Appearance) (Pt Warm) -Tenderness on Palpation (Julia-wound No Skin Appearance) -Ulcer Cleansing Soap and Water -Foul Odor after Cleansing -Anesthetic Used Cetacaine -Wound Comment(s) #2 LLE Posterior -Current Size (cm) - Length -Current Size (cm) - Width -Current Size (cm) - Depth -Total Square Cm -Exudate Amt -Exudate Type -Wound Margin -Granulation Amt -Granulation Quality -Necrosis Amt -Necrotic Tissue Type -Texture (Julia-wound Skin Appearance) -Moisture (Julia-wound Skin Appearance) -Color (Julia-wound Skin Appearance) -Temperature (Julia-wound Skin Appearance) -Ulcer Cleansing -Anesthetic Used #1 LLE Medial -Current Size (cm) - Length -Current Size (cm) - Width -Current Size (cm) - Depth -Total Square Cm -Exudate Amt None Present -Exudate Type -Wound Margin Flat & Intact -Granulation Amt -Granulation Quality -Texture (Julia-wound Skin Appearance) Scarring -Moisture (Julia-wound Skin Appearance) No Abnormality, Dry/Scaly -Color (Julia-wound Skin Appearance) Assessed -Temperature (Julia-wound Skin Appearance) -Tenderness on Palpation (Julia-wound Skin Appearance) -Ulcer Cleansing -Foul Odor after Cleansing -Anesthetic Used Lower Limb Edema Present Right Calf (cm) 43 44 Right Ankle (cm) 28.8 28.5 Left Calf (cm) 42 43.6 Left Ankle (cm) 29.4 29.5 WC - Nurse 2 - General Ulcer CM Notes Start: 05/25/23 11:43 Freq: Status: Active Protocol: Activity Type Activity Date Activity User E-sign Co-sign Detail Recorded Client Recorded Date Recorded By Document 05/30/23 15:17 Desktop 05/30/23 15:22 Document 06/06/23 15:30 Laptop 06/06/23 15:34 Document 06/13/23 14:20 Laptop 06/13/23 14:21 05/30/23 06/06/23 06/13/23 15:17 15:30 14:20 Wound Center Nurse 2 #4 RLE Lateral -Time 15:17 -Correct Patient Yes -Correct Side, Site, Position Yes -Correct Procedure Yes -Procedure Performed Yes -Type of Procedure Debridement -Clinical Debridement Subcutaneous -Tissue Removed Subcutaneous -Tunneling No -Undermining/Tunneling No -Circular Undermining No -Wound/Ulcer Outcome Not Healed -Ulcer Cleansing Rinsed/ Irrigated with Saline -Foul Odor after Cleansing No -Bioengineered Tissue No -Bleeding Controlled with Pressure -Treatment Response Procedure Tolerated Well -Offloading No -Debridement - Subq, 1st 20sq cm No #3 RLE -Time 15:17 15:33 -Correct Patient Yes Yes No -Correct Side, Site, Position Yes Yes No -Correct Procedure Yes Yes No -Procedure Performed Yes Yes No -Type of Procedure Debridement Debridement -Clinical Debridement Subcutaneous Subcutaneous -Tissue Removed Subcutaneous Subcutaneous -Post Debridement (cm) - Length 7 2.5 0 -Post Debridement (cm) - Width 3.8 2.5 0 -Post Debridement (cm) - Depth 0.1 0.1 0 -Total Square (Post) (cm) 26.6 6.25 0 -Area of Debridement (cm) - Length 7 2.5 0 -Area of Debridement (cm) - Width 3.8 2.5 0 -Total Square (Area) (cm) 26.6 6.25 0 -Tunneling No No -Undermining/Tunneling No No -Circular Undermining No No -Wound/Ulcer Outcome Not Healed Not Healed Healed- Epithelialized -Ulcer Cleansing Rinsed/ Rinsed/ Irrigated with Irrigated with Saline Saline -Foul Odor after Cleansing No No -Bioengineered Tissue No No -Bleeding Controlled with Pressure Pressure -Treatment Response Procedure Procedure Tolerated Well Tolerated Well -Offloading No No -Debridement - Subq, 1st 20sq cm No No #2 LLE Posterior -Time 15:18 -Correct Patient Yes -Correct Side, Site, Position Yes -Correct Procedure Yes -Procedure Performed Yes -Type of Procedure Debridement -Clinical Debridement Subcutaneous -Tissue Removed Subcutaneous -Tunneling No -Undermining/Tunneling No -Circular Undermining No -Wound/Ulcer Outcome Not Healed -Ulcer Cleansing Rinsed/ Irrigated with Saline -Foul Odor after Cleansing No -Bioengineered Tissue No -Bleeding Controlled with Pressure -Treatment Response Procedure Tolerated Well -Offloading No -Debridement - Subq, 1st 20sq cm No #1 LLE Medial -Time 15:18 15:33 14:20 -Correct Patient Yes Yes Yes -Correct Side, Site, Position Yes Yes Yes -Correct Procedure Yes Yes Yes -Procedure Performed Yes Yes Yes -Type of Procedure Debridement Debridement Debridement -Clinical Debridement Subcutaneous Subcutaneous Subcutaneous -Tissue Removed Subcutaneous Subcutaneous Subcutaneous -Post Debridement (cm) - Length 10.0 2.4 1.3 -Post Debridement (cm) - Width 3.5 1.7 1.0 -Post Debridement (cm) - Depth 0.1 0.1 0.1 -Total Square (Post) (cm) 35.00 4.08 1.30 -Area of Debridement (cm) - Length 10 2.4 1.3 -Area of Debridement (cm) - Width 3.5 1.7 1.0 -Total Square (Area) (cm) 35.0 4.08 1.30 -Tunneling No No No -Undermining/Tunneling No No No -Circular Undermining No No No -Wound/Ulcer Outcome Not Healed Not Healed Not Healed -Ulcer Cleansing Rinsed/ Rinsed/ Rinsed/ Irrigated with Irrigated with Irrigated with Saline Saline Saline -Foul Odor after Cleansing No No No -Bioengineered Tissue No No No -Bleeding Controlled with Pressure Pressure Pressure -Treatment Response Procedure Procedure Procedure Tolerated Well Tolerated Well Tolerated Well -Offloading No No No -Debridement - Subq, 1st 20sq cm Yes Yes Yes -Debridement, SubQ, ea addt'l 20sq cm 3 or part thereof Pain Scale: 0-10 Numeric Is Patient Pain Free? Yes Yes Yes WC - Nurse 3 - General Ulcer D/C NN Start: 05/25/23 11:43 Freq: Status: Active Protocol: Activity Type Activity Date Activity User E-sign Co-sign Detail Recorded Client Recorded Date Recorded By Document 05/25/23 11:44 [place] [id number] 05/25/23 11:58 MT Document 05/30/23 15:33 KW Desktop 05/30/23 15:35 KW Document 06/01/23 11:21 KW Desktop 06/01/23 11:32 KW Document 06/06/23 15:56 GM Desktop 06/06/23 15:57 GM Document 06/11/23 14:07 DL Desktop 06/11/23 14:13 DL Document 06/13/23 14:36 KW Desktop 06/13/23 14:37 KW 05/25/23 05/30/23 06/01/23 11:44 15:33 11:21 Wound Care Center Nurse 3 #4 RLE Lateral -Ulcer Cleansing Soap and Water -Primary Dressing Applied Promogran -Other Dressing adaptic -Promogran 3 #3 RLE -Ulcer Cleansing Soap and Water -Foul Odor after Cleansing -Primary Dressing Applied NonAdherent NonAdherent Contact Layer, Contact Layer Other -Other Dressing cast padding cast padding -Primary Dressing Covered/Secured with #2 LLE Posterior -Ulcer Cleansing Soap and Water -Primary Dressing Applied Optilok 8x12 -Optilok 8x12 3 #1 LLE Medial -Ulcer Cleansing -Foul Odor after Cleansing -Primary Dressing Applied NonAdherent NonAdherent Contact Layer, Contact Layer Other -Other Dressing casting pad cast padding -Primary Dressing Covered/Secured with BLE -Lotion applied to leg before compression wrap -Multi-Layered Wrap Application Unna Boot - Unna Boot - Bilateral ($) Bilateral ($) Right -Multi-Layered Wrap Application Multi-Layer Comp - Right ($ ) -Tubular Bandage -Size of Tubigrip Used -Size E ($) Left -Multi-Layered Wrap Application Multi-Layer Comp - Left ($) -Tubular Bandage -Size of Tubigrip Used -Size E ($) Treatment Response Vital Signs Temperature (97.8 F-99.1 F) 97.2 F L Temperature Source Temporal Pulse Rate (60-100) 75 Pulse Location Monitor Respiratory Rate (12-18) 18 Respiratory rate source Observation Oxygen Delivery Method Room Air Blood Pressure (90/60-120/80) 122/53 H Blood Pressure Mean (mm Hg) 76 Source Monitor Position Semi-Fowlers Blood Pressure Location Left Arm Pain Scale: 0-10 Numeric Is Patient Pain Free? Yes Yes Yes Teaching: Wound Center *Wound/Skin Impairment -Person Taught -Teaching Method -Response to teaching WC - Visit Discharge Discharge Condition Stable Stable Stable Ambulatory Status Ambulatory Cane Ambulatory, Walker Transportation Private Auto Private Auto Private Auto Medication Reconcilliation completed & No No No provided to patient/care provider Clinical Summary of Care Provided Yes Yes Yes Notes: nurse visit 06/06/23 06/11/23 06/13/23 15:56 14:07 14:36 Wound Care Center Nurse 3 #4 RLE Lateral -Ulcer Cleansing -Primary Dressing Applied -Other Dressing -Promogran #3 RLE -Ulcer Cleansing Not Cleansed Soap and Water -Foul Odor after Cleansing No No -Primary Dressing Applied NonAdherent NonAdherent Contact Layer Contact Layer -Other Dressing xeroform unna boot -Primary Dressing Covered/Secured with Dry Gauze & Roll Gauze, Secured with Tape #2 LLE Posterior -Ulcer Cleansing -Primary Dressing Applied -Optilok 8x12 #1 LLE Medial -Ulcer Cleansing Not Cleansed Soap and Water -Foul Odor after Cleansing No No -Primary Dressing Applied Other -Other Dressing unna boot xeroform -Primary Dressing Covered/Secured with Dry Gauze & Dry Gauze & Roll Gauze Roll Gauze, Secured with Tape BLE -Lotion applied to leg before No compression wrap -Multi-Layered Wrap Application Unna Boot - Unna Boot - Bilateral ($) Bilateral ($) Right -Multi-Layered Wrap Application -Tubular Bandage Single Layer -Size of Tubigrip Used Size E -Size E ($) 1 Left -Multi-Layered Wrap Application -Tubular Bandage Single Layer -Size of Tubigrip Used Size E -Size E ($) 1 Treatment Response Procedure Tolerated Well Vital Signs Temperature (97.8 F-99.1 F) 97.1 F L Temperature Source Temporal Pulse Rate (60-100) 75 Pulse Location Monitor Respiratory Rate (12-18) 18 Respiratory rate source Observation Oxygen Delivery Method Blood Pressure (90/60-120/80) 129/63 H Blood Pressure Mean (mm Hg) 85 Source Monitor Position Blood Pressure Location Pain Scale: 0-10 Numeric Is Patient Pain Free? Yes Yes Yes Teaching: Wound Center *Wound/Skin Impairment -Person Taught Patient -Teaching Method Discussion, Demonstration -Response to teaching Verbalize understanding WC - Visit Discharge Discharge Condition Stable Stable Stable Ambulatory Status Ambulatory Ambulatory,Cane Ambulatory,Cane Transportation Private Auto Private Auto Private Auto Medication Reconcilliation completed & Yes No provided to patient/care provider Clinical Summary of Care Provided Yes Yes Notes: Assessment/Plan Assessment/Plan (1) Non-pressure chronic ulcer of other part of left lower leg with fat layer exposed: CODE(S): L97.822 - Non-pressure chronic ulcer of other part of left lower leg with fat layer exposed PLAN: Patient was examined and evaluated. All findings were discussed with the patient. All questions were answered to the patient satisfaction. Excisional debridement down to and including subcutaneous tissue of the left lower extremity full-thickness ulceration with a 5 mm dermal curette. Predebridement measurement is 1.0 x 0.8 x 0.1 cm. Postdebridement measurement is 1.3 x 1.0 x 0.1 cm. Left lower extremity ulcer dressed with Xeroform followed by dry sterile dressing and a double layer Tubigrip. Patient will plan for pulse volume recordings and venous Dopplers on 06/14/2023. Once we have the patient's results we will begin treatment with 3M compression wraps followed by long-term CircAid wraps that the patient will need to purchase prior to discharge from the wound care center. Patient was understanding of this. Patient will follow-up in 2 weeks. (2) Other specified peripheral vascular diseases: CODE(S): I73.89 - Other specified peripheral vascular diseases
--- NOTE | 2023-06-14 13:08 | VDLE_ITS ---
Reason For Study: Ulcer RIGHT LEFT CFV is compressible, spontaneous, phasic, CFV is compressible, spontaneous, phasic, competent and demonstrates normal competent, and demonstrates normal augmentation. augmentation. FV is compressible, spontaneous, phasic, FV is compressible, spontaneous, phasic, competent and demonstrates normal competent and demonstrates normal augmentation. augmentation. POP V is compressible, spontaneous, phasic, POP V is compressible, spontaneous, phasic, competent and demonstrates normal competent and demonstrates normal augmentation. augmentation. T/P Trunk is compressible. T/P Trunk is compressible. PTV is compressible. PTV is compressible. RT PerV is compressible. LT PerV is compressible. SFJ is competent and measures 0.59 x 0.56 cm. SFJ is competent and measures 0.53 x 0.52 cm. GSV proximal thigh measures 0.37 x 0.38 cm. GSV proximal thigh measures 0.41 x 0.40 cm. GSV at knee measures 0.38 x 0.36 cm. GSV at knee measures 0.48 x 0.48 cm. GSV INCOMPETENT throughout for greater than GSV INCOMPETENT throughout for greater than 0.5 seconds. 0.5 seconds. ASV proximal calf is INCOMPETENT for greater SSV proximal calf is competent and measures than 0.5 seconds and measures 0.27 x 0.30 cm. 0.40 x 0.41 cm. SSV proximal calf is competent and measures 0.28 x 0.28 cm. Procedure This is a venous duplex using B-mode, color flow and spectral Doppler. Exam performed in department. A preliminary report was called and/or faxed to . VL/Venous Duplex US - Marky Extrem Interpretation Summary Deep veins of the lower extremities are bilaterally patent and compressible seg mentally. There is no evidence of deep vein thrombosis on either side. Valvular competence appears in tact within the proximal deep venous systems bilaterally. The great saphenous veins appear bila terally patent and compressible segmentally. Sapheno-femoral junctions are bilaterally competent . Segmental valvular incompetence is noted within the great saphenous veins bilaterally. Small saphe nous veins are patent and competent bilaterally. The accessory saphenous vein in the right proximal c penitentiary is incompetent. Ordering Physician: Last Camilo Referring Physician: Rajesh Caal Performed By: Allison Lund RVT
--- NOTE | 2023-06-14 13:08 | ART_ITS ---
Reason For Study: Ulcer Procedure A bilateral lower extremity continuous wave Doppler with analog waveform analysis,segmental pressures,and ankle brachial indexes without exercise. Left Segmental Pressures Left brachial= 134mmHg. Left posterior tibial artery = 152mmHg. Left dorsalis pedis artery = 162mmHg. Left digit = 101 mmHg. The left dorsalis pedis waveforms are triphasic. The left posterior tibial artery waveforms are triphasic. Right Segmental Pressures Right brachial= 143mmHg. Right posterior tibial artery = 166mmHg. Right dorsalis pedis artery = 167mmHg. Right digit = 94 mmHg. The right dorsalis pedis waveforms are triphasic. The right posterior tibial artery waveforms are triphasic. Indices The right ankle brachial index by the dorsalis pedis is 1.17. The right ankle brachial index by the posterior tibial artery is 1.16. The right digital-brachial index is 0.66. The left ankle brachial index by the dorsalis pedis is 1.13. The left ankle brachial index by the posterior tibial artery is 1.06. The left digital-brachial index is 0.71. VL/Lower Ext Art Exam w/o Exercis Interpretation Summary Triphasic Doppler waveforms are noted at ankle level bilaterally. Pulse-volume recordings appear satisfactory at all levels bilaterally. Resting ankle-brachial indices are norm al bilaterally. The right digital-brachial index is mildly diminished. The left digital-brachial in dex is normal. Arterial flow appears normal at ankle level bilaterally, and at digital level o n the left. 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 Ordering Physician: Last Camilo Referring Physician: Rajesh Caal Performed By: Allison Lund RVT
[2023-06-14 15:17] VITALS: BP 138/58; PULSE 80; RESP 18; TEMP 36.1; BMI 39.0
[2023-06-20 11:09] VITALS: BP 135/65; PULSE 68; RESP 18; TEMP 35.9; BMI 39.0
== END 2023-06-24 23:59 | disposition home or self-care (01) ==
LOC: WC 11:30
PROVIDERS: PCP Nurse Practitioner Family; Referring Provider Internal Medicine Gastroenterology; Visit Provider Podiatrist Foot & Ankle Surgery
DX: L97.812 Non-pressure chronic ulcer of other part of right lower leg with fat layer exposed (principal); L97.822 Non-pressure chronic ulcer of other part of left lower leg with fat layer exposed; R60.0 Localized edema; G47.30 Sleep apnea, unspecified; I89.0 Lymphedema, not elsewhere classified; I73.89 Other specified peripheral vascular diseases
CPT/HCPCS: 11042; 11045; 29580; 29581; 93923; 93970

== ENCOUNTER 2023-07-11 13:30 | Outpatient (RCR) | payer MEDICARE, SELFPAY ==
[2023-06-25 00:50] VITALS: BP 135/65; PULSE 68; RESP 18; TEMP 35.9; BMI 39.0
[2023-06-27 13:38] VITALS: BP 146/99; PULSE 107; RESP 18; TEMP 35.9; BMI 39.0
--- NOTE | 2023-06-27 14:48 | PN.PCM_ITS ---
History of Present Illness Date of Service: 06/27/23 Chief Complaint: Bilateral lower extremity ulcerations, swelling, edema, and lymphedema History of Wound: This is an 82-year-old male who presents with a longstanding history of swelling, edema, and lymphedema in his lower extremities. The patient has recently developed ulcerations in both lower extremities. These ulcerations began as blisters. They were associated with severe swelling, edema, and lymphedema. It appears as though the patient's presenting symptoms and manifestations are related to his daily habits. The patient sleeps in a chair. He does so due to sleep apnea. He is not active. He spends a large part of each day sitting. He requires a cane for ambulation. He denies a history of thrombophlebitis. His relates that the swelling and edema in his lower extremities was minimized after a week in the intensive care unit for treatment of other problems. This was likely due to the patient's confinement to bed, with his legs elevated to heart level. Patient had blood work performed on May 17, 2023, with results as follows: White blood count 10.6, hemoglobin 11.8, hematocrit 37.4, platelets 169,000, iron 62, TIBC 316, ferritin 568. The patient has a history of pre-existing medical problems and prior proc edures, which are listed below. Subjective Subjective Mr. Joyce is a 82-year-old male presenting for follow-up and evaluation of bilateral lower extremity ulcerations and swelling at the wound care center at [facility]. Patient was seen by an outside provider. Patient is following up with Dr. Camilo for continued evaluation and treatment to the patient's bilateral lower extremity ulcerations and swelling. Patient is not a diabetic. Patient admits to improvement when being evaluated today. Patient does admit to stopping his Lasix because of improvement to his bilateral lower extremity. This was not authorized by a physician but by the patient. Denies trauma. Denies constitutional symptoms. Other pedal complaints at this time. Objective Data Objective Data Vital Signs: Vital Signs Temp Pulse Resp BP O2 Del Method 96.7 F L 107 H 18 146/99 H Room Air 06/27/23 13:38 06/27/23 13:38 06/27/23 13:38 06/27/23 13:38 06/27/23 13:38 Oxygen Delivery Method Room Air Weight: 109.769 kg Body Mass Index (BMI) 39.0 Physical Exam Narrative Vascular: DP and PT pulse are palpable. CFT is brisk. +1 pitting edema appreciated bilateral lower extremity. Evidence of hemosiderin deposits are appreciated bilateral lower extremity. Skin temperature great is warm to warm from proximal ankle to distal digits bilateral. No increase in focal warmth is appreciated. Neurological: Light touch and epicritic station is intact. Patient responds to painful stimuli. Dermatological: Full-thickness ulcerations appreciated to the bilateral lower extremity. The right lower extremity ulceration is now healed. Left lower extremity posterior ulceration measures 0.8 x 1.0 x 0.1 cm. Ulceration wound base is 100% granular nature. Evidence of serous drainage. +1 pitting edema is appreciated bilateral lower extremity. Evidence of hemosiderin deposits are appreciated. Excisional debridement down to and including subcutaneous tissue of the left lower extremity posterior full-thickness ulceration with a 5 mm dermal curette. Predebridement measurement is 0.7 x 0.9 x 0.1 cm. Postdebridement measurement is 0.8 x 1.0 x 0.1 cm. Musculoskeletal: No strength 5 and 5 bilaterally. Mild pain on palpation to bilateral full-thickness ulcerations. No pain with calf compression. Debridement Note Debridement Note Debridement Free Text: Excisional debridement down to and including subcutaneous tissue of the left lower extremity posterior full-thickness ulceration with a 5 mm dermal curette. Predebridement measurement is 0.7 x 0.9 x 0.1 cm. Postdebridement measurement is 0.8 x 1.0 x 0.1 cm. Post-Debridement Measurements and Additional Note: Post-Debridement Measurements/Treatment - Nurse 1 - General Ulcer Assessment Start: 06/27/23 13:38 Freq: Status: Active Protocol: WC.LOWEXT Activity Type Activity Date Activity User E-sign Co-sign Detail Recorded Client Recorded Date Recorded By Document 06/27/23 13:38 KW Desktop 06/27/23 13:52 KW 06/27/23 13:38 - Today's Visit Information Type of service Follow-up Visit (Physician/[facility] ) Arrival Mode Ambulatory,Cane Accompanied by Patient Identification Verified (Name & Yes ) Height and Weight Body Mass Index (BMI) 39.0 BMI Classification Obese Vital Signs Temperature (97.8 F-99.1 F) 96.7 F L Temperature Source Temporal Pulse Rate (60-100) 107 H Pulse Location Monitor Respiratory Rate (12-18) 18 Respiratory rate source Observation Oxygen Delivery Method Room Air Blood Pressure (90/60-120/80) 146/99 H Blood Pressure Mean (mm Hg) 114 Source Monitor Position Semi-Fowlers Blood Pressure Location Left Arm History Since Last Visit- (Skip if this is Patient's initial visit) Have you changed medications since your No last visit? Any new allergies or adverse reactions No Had a fall/change in ADL's that may No increase risk of falls Signs or symptoms of abuse and/or No neglect since last visit Have you been in the hospital since your No last visit? Has dressing in place as prescribed Yes Has compression in place as prescribed Yes Has offloadiing in place as prescribed N/A Experienced any changes in pain level or No management Left Footwear Regular Shoe Right Footwear Regular Shoe Pain Scale: 0-10 Numeric Is Patient Pain Free? Yes WC - Nurse 1 - General Ulcer Measurement Start: 06/27/23 13:38 Freq: Status: Active Protocol: Activity Type Activity Date Activity User E-sign Co-sign Detail Recorded Client Recorded Date Recorded By Document 06/27/23 13:38 KW Desktop 06/27/23 13:52 KW 06/27/23 13:38 Wound Center Nurse 1 #1 LLE Medial -Current Size (cm) - Length 0.1 -Current Size (cm) - Width 0.1 -Current Size (cm) - Depth 0.1 -Total Square Cm 0.01 -Photo Taken No -Exudate Amt Small -Exudate Type Serosanguineous -Wound Margin Distinct, Outline Attached -Granulation Amt Large (67-100%) -Granulation Quality Red -Texture (Julia-wound Skin Appearance) Assessed -Moisture (Julia-wound Skin Appearance) Assessed -Color (Julia-wound Skin Appearance) Assessed -Temperature (Julia-wound Skin No Abnormality Appearance) (Pt Warm) -Ulcer Cleansing Soap and Water -Foul Odor after Cleansing No -Anesthetic Used 4% Lidocaine Solution Right Calf (cm) 43.3 Right Ankle (cm) 29 Left Calf (cm) 42.5 Left Ankle (cm) 30.4 WC - Nurse 2 - General Ulcer CM Notes Start: 06/27/23 13:38 Freq: Status: Active Protocol: Activity Type Activity Date Activity User E-sign Co-sign Detail Recorded Client Recorded Date Recorded By Document 06/27/23 14:19 RICARDO Laptop 06/27/23 14:20 RICARDO Edit Result 06/27/23 14:19 JF (1) Laptop 06/27/23 14:21 JF (1) #2 LLE Posterior - Time => 14:21 - Correct Patient => Yes - Correct Side, Site, Position => Yes - Correct Procedure => Yes - Procedure Performed => Yes - Type of Procedure => Debridement - Clinical Debridement => Subcutaneous - Tissue Removed => Subcutaneous - Post Debridement (cm) - Length => 0.8 - Post Debridement (cm) - Width => 1.0 - Post Debridement (cm) - Depth => 0.1 - Total Square (Post) (cm) => 0.80 - Area of Debridement (cm) - Length => 0.8 - Area of Debridement (cm) - Width => 1.0 - Total Square (Area) (cm) => 0.80 - Tunneling => No - Undermining/Tunneling => No - Circular Undermining => No - Wound/Ulcer Outcome => Not Healed - Ulcer Cleansing => Rinsed/Irrigated => with Saline - Foul Odor after Cleansing => No - Bioengineered Tissue => No - Bleeding Controlled with => Pressure - Treatment Response => Procedure => Tolerated Well - Offloading => No - Debridement - Subq, 1st 20sq cm => Yes 06/27/23 14:19 Wound Center Nurse 2 #1 LLE Medial -Correct Patient No -Correct Side, Site, Position No -Correct Procedure No -Procedure Performed No -Post Debridement (cm) - Length 0 -Post Debridement (cm) - Width 0 -Post Debridement (cm) - Depth 0 -Total Square (Post) (cm) 0 -Area of Debridement (cm) - Length 0 -Area of Debridement (cm) - Width 0 -Total Square (Area) (cm) 0 -Wound/Ulcer Outcome Healed- Epithelialized #2 LLE Posterior -Time 14:21 -Correct Patient Yes -Correct Side, Site, Position Yes -Correct Procedure Yes -Procedure Performed Yes -Type of Procedure Debridement -Clinical Debridement Subcutaneous -Tissue Removed Subcutaneous -Post Debridement (cm) - Length 0.8 -Post Debridement (cm) - Width 1.0 -Post Debridement (cm) - Depth 0.1 -Total Square (Post) (cm) 0.80 -Area of Debridement (cm) - Length 0.8 -Area of Debridement (cm) - Width 1.0 -Total Square (Area) (cm) 0.80 -Tunneling No -Undermining/Tunneling No -Circular Undermining No -Wound/Ulcer Outcome Not Healed -Ulcer Cleansing Rinsed/ Irrigated with Saline -Foul Odor after Cleansing No -Bioengineered Tissue No -Bleeding Controlled with Pressure -Treatment Response Procedure Tolerated Well -Offloading No -Debridement - Subq, 1st 20sq cm Yes Pain Scale: 0-10 Numeric Is Patient Pain Free? Yes - Nurse 3 - General Ulcer D/C NN Start: 06/27/23 13:38 Freq: Status: Active Protocol: Activity Type Activity Date Activity User E-sign Co-sign Detail Recorded Client Recorded Date Recorded By Document 06/27/23 14:46 Desktop 06/27/23 14:47 RB 06/27/23 14:46 Wound Care Center Nurse 3 #2 LLE Posterior -Ulcer Cleansing Rinsed/ Irrigated with Saline -Other Dressing xeroform bilat -Multi-Layered Wrap Application Multi-Layer Comp - Bilat ($ ) Treatment Response Procedure Tolerated Well Pain Scale: 0-10 Numeric Is Patient Pain Free? Yes - Visit Discharge Discharge Condition Stable Ambulatory Status Ambulatory Transportation Private Auto Medication Reconcilliation completed & No provided to patient/care provider Clinical Summary of Care Provided Yes Assessment/Plan Assessment/Plan (1) Non-pressure chronic ulcer of other part of left lower leg with fat layer exposed: CODE(S): L97.822 - Non-pressure chronic ulcer of other part of left lower leg with fat layer exposed PLAN: Patient was examined and evaluated. All findings were discussed with the patient. All questions were answered to the patient's satisfaction. Excisional debridement down to and including subcutaneous tissue of the left lower extremity posterior full-thickness ulceration with a 5 mm dermal curette. Predebridement measurement is 0.7 x 0.9 x 0.1 cm. Postdebridement measurement is 0.8 x 1.0 x 0.1 cm. The left lower extremities were cleaned and patted dry. The patient was placed in bilateral 3M wraps. He was instructed keep them clean dry and intact. The patient will begin to and resume his Lasix. The patient will follow-up in 1 week for nursing visit and will bring his compression stockings for evaluation by nursing staff and then rewrapped with his 3M wraps. Follow-up at the wound care center with Dr. Camilo in 2 week. (2) Other specified peripheral vascular diseases: CODE(S): I73.89 - Other specified peripheral vascular diseases
[2023-07-03 15:24] VITALS: BP 143/62; PULSE 65; RESP 18; TEMP 36.6; BMI 39.0
[2023-07-11 13:41] VITALS: BP 136/76; PULSE 69; RESP 18; TEMP 36.8; BMI 39.0
--- NOTE | 2023-07-11 14:14 | PCM.WC.PN ---
History of Present Illness Date of Service: 07/11/23 Chief Complaint: Bilateral lower extremity ulcerations, swelling, edema, and lymphedema History of Wound: This is an 82-year-old male who presents with a longstanding history of swelling, edema, and lymphedema in his lower extremities. The patient has recently developed ulcerations in both lower extremities. These ulcerations began as blisters. They were associated with severe swelling, edema, and lymphedema. It appears as though the patient's presenting symptoms and manifestations are related to his daily habits. The patient sleeps in a chair. He does so due to sleep apnea. He is not active. He spends a large part of each day sitting. He requires a cane for ambulation. He denies a history of thrombophlebitis. His relates that the swelling and edema in his lower extremities was minimized after a week in the intensive care unit for treatment of other problems. This was likely due to the patient's confinement to bed, with his legs elevated to heart level. Patient had blood work performed on May 17, 2023, with results as follows: White blood count 10.6, hemoglobin 11.8, hematocrit 37.4, platelets 169,000, iron 62, TIBC 316, ferritin 568. The patient has a history of pre-existing medical problems and prior procedures, which are listed below. Subjective Subjective Mr. Joyce is a 82-year-old male presenting for follow-up and evaluation of full-thickness ulceration to the left lower extremity. Patient has been compliant with wearing his multilayer compression bandages. He states that he has noticed great improvement with his bilateral leg swelling. He has does not have his compression stockings and will need a prescription. Denies trauma. Denies constitutional symptoms. No other pedal complaints at this time. Objective Data Objective Data Vital Signs: Vital Signs Temp Pulse Resp BP O2 Del Method 98.3 F 69 18 136/76 H Room Air 07/11/23 13:41 07/11/23 13:41 07/11/23 13:41 07/11/23 13:41 07/11/23 13:41 Oxygen Delivery Method Room Air Weight: 109.769 kg Body Mass Index (BMI) 39.0 Physical Exam Narrative Vascular: DP and PT pulse are palpable bilateral. CFT is brisk. +1 pitting edema appreciated bilateral extremity. Evidence of hemosiderin deposits appreciated bilateral lower extremity. Skin temperature great is warm to warm from proximal ankle to distal digit bilateral. No focal increase is appreciated. Neurological: Light touch and epicritic station is intact. Patient responds to painful stimuli. Dermatological: Full-thickness ulceration to bilateral lower extremity are now healed. +1 pitting edema appreciated bilateral extremity. Evidence of hemosiderin deposits to bilateral extremity. Musculoskeletal: No strength 5 and 5 bilaterally. No pain to palpation to all healed bilateral full-thickness ulceration.. No pain with calf compression. Debridement Note Debridement Note Post-Debridement Measurements and Additional Note: Post-Debridement Measurements/Treatment - Nurse 1 - General Ulcer Assessment Start: 06/27/23 13:38 Freq: Status: Active Protocol: .[email or web address] Activity Type Activity Date Activity User E-sign Co-sign Detail Recorded Client Recorded Date Recorded By Document 06/27/23 13:38 KW Desktop 06/27/23 13:52 KW Document 07/03/23 15:24 RB Desktop 07/03/23 15:27 RB Document 07/11/23 13:41 GM Desktop 07/11/23 13:55 GM 06/27/23 07/03/23 07/11/23 13:38 15:24 13:41 - Today's Visit Information Type of service Follow-up Visit Follow-up Visit Follow-up Visit (Physician/ACCOUNTS RECEIVABLE BOOKKEEPER (Physician/ACCOUNTS RECEIVABLE BOOKKEEPER (Physician/ACCOUNTS RECEIVABLE BOOKKEEPER ) ) ) Arrival Mode Ambulatory,Cane Ambulatory,Cane Ambulatory,Cane Transfer Assistance None None Accompanied by Patient Identification Verified (Name & Yes Yes Yes ) Patient Requires Transmission-Based No Precautions Height and Weight Body Mass Index (BMI) 39.0 39.0 39.0 BMI Classification Obese Obese Obese Vital Signs Temperature (97.8 F-99.1 F) 96.7 F L 97.9 F 98.3 F Temperature Source Temporal Temporal Temporal Pulse Rate (60-100) 107 H 65 69 Pulse Location Monitor Monitor Monitor Respiratory Rate (12-18) 18 18 18 Respiratory rate source Observation Observation Observation Oxygen Delivery Method Room Air Room Air Blood Pressure (90/60-120/80) 146/99 H 143/62 H 136/76 H Blood Pressure Mean (mm Hg) 114 89 96 Source Monitor Monitor Monitor Position Semi-Fowlers Semi-Fowlers Sitting Blood Pressure Location Left Arm Left Arm Left Arm History Since Last Visit- (Skip if this is Patient's initial visit) Have you changed medications since your No No No last visit? Any new allergies or adverse reactions No No No Had a fall/change in ADL's that may No No No increase risk of falls Signs or symptoms of abuse and/or No No No neglect since last visit Have you been in the hospital since your No No last visit? Has dressing in place as prescribed Yes Yes Has compression in place as prescribed Yes Yes Has offloadiing in place as prescribed N/A No N/A Experienced any changes in pain level or No No No management Left Footwear Regular Shoe Regular Shoe Right Footwear Regular Shoe Regular Shoe Pain Scale: 0-10 Numeric Is Patient Pain Free? Yes Yes Yes RAMÓN - Nurse 1 - General Ulcer Measurement Start: 06/27/23 13:38 Freq: Status: Active Protocol: Activity Type Activity Date Activity User E-sign Co-sign Detail Recorded Client Recorded Date Recorded By Document 06/27/23 13:38 KW Desktop 06/27/23 13:52 KW Document 07/03/23 15:24 RB Desktop 07/03/23 15:27 RB Document 07/11/23 13:41 GM Desktop 07/11/23 13:55 06/27/23 07/03/23 07/11/23 13:38 15:24 13:41 Wound Center Nurse 1 #1 LLE Medial -Current Size (cm) - Length 0.1 -Current Size (cm) - Width 0.1 -Current Size (cm) - Depth 0.1 -Total Square Cm 0.01 -Photo Taken No -Exudate Amt Small -Exudate Type Serosanguineous -Wound Margin Distinct, Outline Attached -Granulation Amt Large (67-100%) -Granulation Quality Red -Texture (Julia-wound Skin Appearance) Assessed -Moisture (Julia-wound Skin Appearance) Assessed -Color (Julia-wound Skin Appearance) Assessed -Temperature (Julia-wound Skin No Abnormality Appearance) (Pt Warm) -Ulcer Cleansing Soap and Water -Foul Odor after Cleansing No -Anesthetic Used 4% Lidocaine Solution Lower Limb Edema Present Yes Right Calf (cm) 43.3 42.5 42 Right Ankle (cm) 29 27 27.5 Left Calf (cm) 42.5 41 40.5 Left Ankle (cm) 30.4 28.5 28.0 - Nurse 2 - General Ulcer CM Notes Start: 06/27/23 13:38 Freq: Status: Active Protocol: Activity Type Activity Date Activity User E-sign Co-sign Detail Recorded Client Recorded Date Recorded By Document 06/27/23 14:19 JF Laptop 06/27/23 14:20 Edit Result 06/27/23 14:19 JF (1) Laptop 06/27/23 14:21 JF Document 07/11/23 14:13 JF Laptop 07/11/23 14:13 (1) #2 LLE Posterior - Time => 14:21 - Correct Patient => Yes - Correct Side, Site, Position => Yes - Correct Procedure => Yes - Procedure Performed => Yes - Type of Procedure => Debridement - Clinical Debridement => Subcutaneous - Tissue Removed => Subcutaneous - Post Debridement (cm) - Length => 0.8 - Post Debridement (cm) - Width => 1.0 - Post Debridement (cm) - Depth => 0.1 - Total Square (Post) (cm) => 0.80 - Area of Debridement (cm) - Length => 0.8 - Area of Debridement (cm) - Width => 1.0 - Total Square (Area) (cm) => 0.80 - Tunneling => No - Undermining/Tunneling => No - Circular Undermining => No - Wound/Ulcer Outcome => Not Healed - Ulcer Cleansing => Rinsed/Irrigated => with Saline - Foul Odor after Cleansing => No - Bioengineered Tissue => No - Bleeding Controlled with => Pressure - Treatment Response => Procedure => Tolerated Well - Offloading => No - Debridement - Subq, 1st 20sq cm => Yes 06/27/23 07/11/23 14:19 14:13 Wound Center Nurse 2 #2 LLE Posterior -Time 14:21 -Correct Patient Yes -Correct Side, Site, Position Yes -Correct Procedure Yes -Procedure Performed Yes -Type of Procedure Debridement -Clinical Debridement Subcutaneous -Tissue Removed Subcutaneous -Post Debridement (cm) - Length 0.8 -Post Debridement (cm) - Width 1.0 -Post Debridement (cm) - Depth 0.1 -Total Square (Post) (cm) 0.80 -Area of Debridement (cm) - Length 0.8 -Area of Debridement (cm) - Width 1.0 -Total Square (Area) (cm) 0.80 -Tunneling No -Undermining/Tunneling No -Circular Undermining No -Wound/Ulcer Outcome Not Healed -Ulcer Cleansing Rinsed/ Irrigated with Saline -Foul Odor after Cleansing No -Bioengineered Tissue No -Bleeding Controlled with Pressure -Treatment Response Procedure Tolerated Well -Offloading No -Debridement - Subq, 1st 20sq cm Yes #1 LLE Medial -Correct Patient No -Correct Side, Site, Position No -Correct Procedure No -Procedure Performed No -Post Debridement (cm) - Length 0 -Post Debridement (cm) - Width 0 -Post Debridement (cm) - Depth 0 -Total Square (Post) (cm) 0 -Area of Debridement (cm) - Length 0 -Area of Debridement (cm) - Width 0 -Total Square (Area) (cm) 0 -Wound/Ulcer Outcome Healed- Epithelialized Pain Scale: 0-10 Numeric Is Patient Pain Free? Yes Yes - Nurse 3 - General Ulcer D/C NN Start: 06/27/23 13:38 Freq: Status: Active Protocol: Activity Type Activity Date Activity User E-sign Co-sign Detail Recorded Client Recorded Date Recorded By Document 06/27/23 14:46 RB Desktop 06/27/23 14:47 RB Document 07/03/23 15:24 RB Desktop 07/03/23 15:27 RB 06/27/23 07/03/23 14:46 15:24 Wound Care Center Nurse 3 #2 LLE Posterior -Ulcer Cleansing Rinsed/ Wound Cleanser Irrigated with Saline -Other Dressing xeroform xeroform bilat -Multi-Layered Wrap Application Multi-Layer Multi-Layer Comp - Bilat ($ Comp - Bilat ($ ) ) Treatment Response Procedure Procedure Tolerated Well Tolerated Well Vital Signs Temperature (97.8 F-99.1 F) 97.9 F Temperature Source Temporal Pulse Rate (60-100) 65 Pulse Location Monitor Respiratory Rate (12-18) 18 Respiratory rate source Observation Blood Pressure (90/60-120/80) 143/62 H Blood Pressure Mean (mm Hg) 89 Source Monitor Position Semi-Fowlers Blood Pressure Location Left Arm Pain Scale: 0-10 Numeric Is Patient Pain Free? Yes Yes WC - Visit Discharge Discharge Condition Stable Stable Ambulatory Status Ambulatory Ambulatory,Cane Transportation Private Auto Private Auto Medication Reconcilliation completed & No No provided to patient/care provider Clinical Summary of Care Provided Yes Yes Assessment/Plan Assessment/Plan (1) Non-pressure chronic ulcer of other part of left lower leg with fat layer exposed: CODE(S): L97.822 - Non-pressure chronic ulcer of other part of left lower leg with fat layer exposed PLAN: Patient was examined and evaluated. All findings were discussed with the patient. All questions were answered to the patient's satisfaction. Patient's bilateral full-thickness ulcerations are now healed. The patient has been grateful for his care. The patient was placed in bilateral multilayer compression 3M dressings. Patient will keep these on for approximately 1 week. He will follow-up for a nursing visit at week [address] Camilo at week 2. Patient was given a prescription for compression stockings, 20 to 30 mmHg to be sized and fitted at [facility] [place]. Patient's toenails 1 through 5 bilateral were debrided down to and including normal limits with a sterile double-action nail nipper without incident. Patient expressed relief after debridement. Follow-up at the wound care center with Dr. Camilo in 1 week. (2) Other specified peripheral vascular diseases: CODE(S): I73.89 - Other specified peripheral vascular diseases
--- NOTE | 2023-07-17 13:06 | WC ---
Patient arrived to [facility] today but does not have his compression stockings in yet. They are on order and were instructed to call wound center when they are available. Compression wraps currently on were in place and did not need changed. Patient and his verbalized understanding to call us once stockings are in and we can schedule a nurse visit to instruct application of stockings
== END 2023-07-24 23:59 | disposition home or self-care (01) ==
LOC: WC 13:30
PROVIDERS: PCP Nurse Practitioner Family; Referring Provider Internal Medicine Gastroenterology; Visit Provider Podiatrist Foot & Ankle Surgery
DX: L97.822 Non-pressure chronic ulcer of other part of left lower leg with fat layer exposed (principal); I89.0 Lymphedema, not elsewhere classified; G47.30 Sleep apnea, unspecified; I73.89 Other specified peripheral vascular diseases
CPT/HCPCS: 11042; 29581; 99213; G0463

== ENCOUNTER → 2023-07-13 | Outpatient (CLI) | payer MEDICARE, SELFPAY ==
[2023-07-13 09:15] LABS: Absolute Lymphocyte Count 3.26 X10^3/uL (0.83-4.51); Absolute Neutrophil Count 3.7 X10^3/uL (2.0-7.7); Basophil# 0.05 X10^3/uL; Basophil% 0.6 % (0-1); Eosinophil# 0.24 X10^3/uL; Hematocrit 38.2 % (40-54); Hemoglobin 12.5 g/dL (13.0-16.5); Lymphocyte # 3.26 X10^3/ul (0.83-4.51); Mean Corp Hgb Conc 32.7 g/dL (32-36); Mean Corpuscular Hgb 32.5 pg (27.0-32.0); Mean Corpuscular Volume 99.2 fL (80-94); Mean Platelet Vol. 10.3 fl (6.2-12.0); Monocyte# 0.71 X10^3/uL; Monocyte% 8.9 % (0-10); NRBC Flagged by Analyzer 0 % (0-5); Neutrophil # 3.65 X10^3/uL (2.7-7.7); Platelet Count 148 K/mm3 (150-450); RBC Distribution Width SD 50.8 fl (35.1-43.9); Red Blood Count 3.85 M/mm3 (4.6-6.2)
[2023-07-13 09:41] LABS: Hemoglobin A1c 5.7 % (3.8-5.6)
[2023-07-13 09:56] LABS: BNP,B-Type NATRIURETIC PEPTIDE 54.5 pg/mL (0-100)
[2023-07-13 10:05] LABS: Vitamin D,25 Hydroxy 60.4 ng/mL
[2023-07-13 10:08] LABS: ALB/GLOB Ratio 0.8 RATIO (0.9-2.4); AST(SGOT) 19 U/L (15-37); Alanine Aminotransfer ALT/SGPT 20 U/L (16-61); Albumin, Serum 3.4 g/dL (3.2-5.0); Alkaline Phosphatase 90 U/L (45-117); Anion Gap 4 (5-15); BUN 25 mg/dL (7-18); Calcium,Total 9.2 mg/dL (8.5-10.1); Chloride 107 mmol/L (98-107); Cholesterol 93 mg/dL (200); Creatinine, Serum 1.25 mg/dL (0.70-1.30); EST Glomerular Filtration Rate 59 mL/min (>60); Est Glom Filt Rate - Afr Amer 71 mL/min (>60); Glucose 113 mg/dL (74-106); High Density Lipoprotein 27 mg/dL; Potassium 4.1 mmol/L (3.5-5.1); Protein, Total 7.4 g/dL (6.4-8.2); Sodium Level 139 mmol/L (136-145); Triglycerides 173 mg/dL; Very Low Density Lipoprotein 35 mg/dL (5-40)
== END | disposition home or self-care (01) ==
LOC: LAB 08:33
PROVIDERS: PCP Nurse Practitioner Family; Referring Provider Nurse Practitioner Family; Visit Provider Nurse Practitioner Family
DX: I13.0 Hypertensive heart and chronic kidney disease with heart failure and stage 1 through stage 4 chronic kidney disease, or unspecified chronic kidney disease (principal); I50.9 Heart failure, unspecified; N18.9 Chronic kidney disease, unspecified; R73.01 Impaired fasting glucose; E78.5 Hyperlipidemia, unspecified; D50.0 Iron deficiency anemia secondary to blood loss (chronic); E55.9 Vitamin D deficiency, unspecified
CPT/HCPCS: 36415; 80053; 80061; 82306; 83036; 83880; 85025

== ENCOUNTER 2023-08-22 11:00 | Outpatient (RCR) | payer MEDICARE, SELFPAY ==
[2023-07-25 00:28] VITALS: BP 136/76; PULSE 69; RESP 18; TEMP 36.8; BMI 39.0
[2023-07-26 13:33] VITALS: BP 144/76; PULSE 79; RESP 18; TEMP 35.9; BMI 39.0
[2023-07-30 11:50] VITALS: BP 131/73; PULSE 69; RESP 18; TEMP 36.6; BMI 39.0
--- NOTE | 2023-08-08 11:40 | PN.PCM_ITS ---
History of Present Illness Date of Service: 08/08/23 Chief Complaint: Bilateral lower extremity ulcerations, swelling, edema, and lymphedema History of Wound: This is an 82-year-old male who presents with a longstanding history of swelling, edema, and lymphedema in his lower extremities. The patient has recently developed ulcerations in both lower extremities. These ulcerations began as blisters. They were associated with severe swelling, edema, and lymphedema. It appears as though the patient's presenting symptoms and manifestations are related to his daily habits. The patient sleeps in a chair. He does so due to sleep apnea. He is not active. He spends a large part of each day sitting. He requires a cane for ambulation. He denies a history of thrombophlebitis. His relates that the swelling and edema in his lower extremities was minimized after a week in the intensive care unit for treatment of other problems. This was likely due to the patient's confinement to bed, with his legs elevated to heart level. Patient had blood work performed on May 17, 2023, with results as follows: White blood count 10.6, hemoglobin 11.8, hematocrit 37.4, platelets 169,000, iron 62, TIBC 316, ferritin 568. The patient has a history of pre-existing medical problems and prior proc edures, which are listed below. Subjective Subjective Mr. Joyce is a 82-year-old male presenting to the wound care center today to follow-up on evaluation of bilateral leg swelling. Patient has been using his compression stockings but states that he has increase in swelling and redness to the bilateral lower extremity left greater than right. He has multiple eschars that are stable with no drainage or concern for infection. Patient has been compliant with his new compression stockings but states that maybe they are not tight enough. He is unsure how his bilateral legs have swollen to the size they are today. He denies trauma. Denies constitutional symptoms. No other pedal complaints at this time. Objective Data Objective Data Vital Signs: Vital Signs Temp Pulse Resp BP O2 Del Method 97.8 F 69 18 131/73 H Room Air 07/30/23 11:50 07/30/23 11:50 07/30/23 11:50 07/30/23 11:50 07/30/23 11:50 Oxygen Delivery Method Room Air Weight: 109.769 kg Body Mass Index (BMI) 39.0 Physical Exam Narrative Vascular: DP and PT pulse are palpable bilateral. CFT is brisk. +1 pitting edema appreciated bilateral extremity. Evidence of hemosiderin deposits appreciated bilateral lower extremity. Skin temperature great is warm to warm from proximal ankle to distal digit bilateral. Blanchable erythema to the bilateral lower extremity. No focal increase is appreciated. Neurological: Light touch and epicritic station is intact. Patient responds to painful stimuli. Dermatological: Partial-thickness ulceration appreciated to the anterior left leg measuring 0.7 x 0.7 x 0.1 cm. Wound base is granular. No drainage. No sign of infection. No malodor probe to bone. Selective debridement down to and including dermal tissue with a number 3 mm dermal curette to the left leg ulceration without incident. Predebridement measurement is eschar. Posterior right measurement is 0.7 x 0.7 x 0.1 cm. Musculoskeletal: No strength 5 and 5 bilaterally. No pain on palpation to the bilateral extremity. No pain with calf compression. Debridement Note Debridement Note Debridement Free Text: Selective debridement down to and including dermal tissue with a number 3 mm dermal curette to the left leg ulceration without incident. Predebridement measurement is eschar. Posterior right measurement is 0.7 x 0.7 x 0.1 cm. Post-Debridement Measurements and Additional Note: Post-Debridement Measurements/Treatment - Nurse 1 - General Ulcer Assessment Start: 07/26/23 13:33 Freq: Status: Active Protocol: WC.LOWEXT Activity Type Activity Date Activity User E-sign Co-sign Detail Recorded Client Recorded Date Recorded By Document 07/26/23 13:33 Desktop 07/26/23 13:35 RB Document 07/30/23 11:50 Desktop 07/30/23 11:55 KW 07/26/23 07/30/23 13:33 11:50 - Today's Visit Information Type of service Nurse-only Nurse-only Visit Visit Arrival Mode Ambulatory,Cane Ambulatory,Cane Transfer Assistance None Accompanied by Patient Identification Verified (Name & Yes Yes ) Patient Requires Transmission-Based No Precautions Height and Weight Body Mass Index (BMI) 39.0 39.0 BMI Classification Obese Obese Vital Signs Temperature (97.8 F-99.1 F) 96.7 F L 97.8 F Temperature Source Temporal Temporal Pulse Rate (60-100) 79 69 Pulse Location Monitor Monitor Respiratory Rate (12-18) 18 18 Respiratory rate source Observation Observation Oxygen Delivery Method Room Air Blood Pressure (90/60-120/80) 144/76 H 131/73 H Blood Pressure Mean (mm Hg) 98 92 Source Monitor Monitor Position Semi-Fowlers Semi-Fowlers Blood Pressure Location Left Arm Left Forearm History Since Last Visit- (Skip if this is Patient's initial visit) Have you changed medications since your No No last visit? Any new allergies or adverse reactions No No Had a fall/change in ADL's that may No No increase risk of falls Signs or symptoms of abuse and/or No No neglect since last visit Have you been in the hospital since your No No last visit? Has dressing in place as prescribed Yes Yes Has compression in place as prescribed Yes Yes Has offloadiing in place as prescribed No N/A Experienced any changes in pain level or No No management Left Footwear Regular Shoe Right Footwear Regular Shoe Pain Scale: 0-10 Numeric Is Patient Pain Free? Yes Yes WC - Nurse 1 - General Ulcer Measurement Start: 07/26/23 13:33 Freq: Status: Active Protocol: Activity Type Activity Date Activity User E-sign Co-sign Detail Recorded Client Recorded Date Recorded By Document 07/26/23 13:33 RB Desktop 07/26/23 13:35 RB 07/26/23 13:33 Wound Center Nurse 1 Lower Limb Edema Present Yes Right Calf (cm) 41.5 Right Ankle (cm) 25.6 Left Calf (cm) 41 Left Ankle (cm) 26.5 WC - Nurse 2 - General Ulcer CM Notes Start: 07/26/23 13:33 Freq: Status: Active Protocol: Activity Type Activity Date Activity User E-sign Co-sign Detail Recorded Client Recorded Date Recorded By Document 08/08/23 11:22 [place] [id number] 08/08/23 11:23 DS Edit Result 08/08/23 11:22 DS (1) [id number] 08/08/23 11:25 DS (1) #1 LLE Medial - Post Debridement (cm) - Length => 0.7 - Post Debridement (cm) - Width => 0.7 - Post Debridement (cm) - Depth => 0.1 - Total Square (Post) (cm) => 0.49 - Area of Debridement (cm) - Length => 0.7 - Area of Debridement (cm) - Width => 0.7 - Total Square (Area) (cm) => 0.49 - Tunneling => No - Undermining/Tunneling => No - Circular Undermining => No 08/08/23 11:22 Wound Center Nurse 2 #1 LLE Medial -Time 11:22 -Correct Patient Yes -Correct Side, Site, Position Yes -Correct Procedure Yes -Procedure Performed Yes -Type of Procedure Debridement -Clinical Debridement Epidermis / Dermis -Tissue Removed Epidermis, Dermis -Post Debridement (cm) - Length 0.7 -Post Debridement (cm) - Width 0.7 -Post Debridement (cm) - Depth 0.1 -Total Square (Post) (cm) 0.49 -Area of Debridement (cm) - Length 0.7 -Area of Debridement (cm) - Width 0.7 -Total Square (Area) (cm) 0.49 -Tunneling No -Undermining/Tunneling No -Circular Undermining No -Wound/Ulcer Outcome Not Healed -Ulcer Cleansing Rinsed/ Irrigated with Saline -Bleeding Controlled with Pressure -Treatment Response Procedure Tolerated Well -Debridement - Open, 1st 20sq cm Yes Pain Scale: 0-10 Numeric Is Patient Pain Free? Yes WC - Nurse 3 - General Ulcer D/C NN Start: 07/26/23 13:33 Freq: Status: Active Protocol: Activity Type Activity Date Activity User E-sign Co-sign Detail Recorded Client Recorded Date Recorded By Document 07/26/23 13:33 RB Desktop 07/26/23 13:35 RB Document 07/30/23 11:50 KW Desktop 07/30/23 11:55 KW Document 08/08/23 11:36 [id number] 08/08/23 11:37 07/26/23 07/30/23 08/08/23 13:33 11:50 11:36 Vital Signs Temperature (97.8 F-99.1 F) 96.7 F L 97.8 F Temperature Source Temporal Temporal Pulse Rate (60-100) 79 69 Pulse Location Monitor Monitor Respiratory Rate (12-18) 18 18 Respiratory rate source Observation Observation Oxygen Delivery Method Room Air Blood Pressure (90/60-120/80) 144/76 H 131/73 H Blood Pressure Mean (mm Hg) 98 92 Source Monitor Monitor Position Semi-Fowlers Semi-Fowlers Blood Pressure Location Left Arm Left Forearm Pain Scale: 0-10 Numeric Is Patient Pain Free? Yes Yes Yes Wound Care Center Nurse 3 #1 LLE Medial -Ulcer Cleansing Rinsed/ Irrigated with Saline -Other Dressing xeroform -Primary Dressing Covered/Secured with Dry Gauze bilat LE\ -Multi-Layered Wrap Application Multi-Layer Multi-Layer Comp - Bilat ($ Comp - Bilat ($ ) ) -Other APPLIED PT NEW COMPRESSION STOCKINGS Treatment Response Procedure Tolerated Well WC - Visit Discharge Discharge Condition Stable Stable Ambulatory Status Ambulatory Ambulatory,Cane Transportation Private Auto Private Auto Accompanied by Medication Reconcilliation completed & No Yes provided to patient/care provider Clinical Summary of Care Provided Yes Yes Assessment/Plan Assessment/Plan (1) Non-pressure chronic ulcer of other part of left lower leg limited to rosalio akdown of skin: CODE(S): L97.821 - Non-pressure chronic ulcer of other part of left lower leg limited to breakdown of skin PLAN: Patient was examined and evaluated. All findings were discussed with the patient. All questions were answered to the patient's satisfaction. Selective debridement down to and including dermal tissue with a number 3 mm dermal curette to the left leg ulceration without incident. Predebridement measurement is eschar. Posterior right measurement is 0.7 x 0.7 x 0.1 cm. The patient's left lower extremities were cleaned and patted dry. Hydrogel was applied to the partial-thickness wound followed by bilateral 3M compression wraps. Patient will follow-up this Sunday for nursing visit for wrap change. Patient will follow-up with nursing visits in 1 week and then with Dr. Camilo in 2 weeks. Patient left the office pleased with the visit. It was discussed with the patient and his that he is waiting to receive his open toed compression socks as those may be easier to place secondary to the compression. Also recommended CircAid wraps with the patient and are understanding of. Follow-up at the wound care center with Dr. Camilo in 2 week. (2) Other specified peripheral vascular diseases: CODE(S): I73.89 - Other specified peripheral vascular diseases
[2023-08-14 13:12] VITALS: BMI 39.0
[2023-08-22 11:04] VITALS: BP 164/71; PULSE 78; RESP 18; TEMP 36; BMI 39.0
--- NOTE | 2023-08-22 12:53 | PCM.WC.PN ---
History of Present Illness Date of Service: 08/22/23 Chief Complaint: Bilateral lower extremity ulcerations, swelling, edema, and lymphedema History of Wound: This is an 82-year-old male who presents with a longstanding history of swelling, edema, and lymphedema in his lower extremities. The patient has recently developed ulcerations in both lower extremities. These ulcerations began as blisters. They were associated with severe swelling, edema, and lymphedema. It appears as though the patient's presenting symptoms and manifestations are related to his daily habits. The patient sleeps in a chair. He does so due to sleep apnea. He is not active. He spends a large part of each day sitting. He requires a cane for ambulation. He denies a history of thrombophlebitis. His relates that the swelling and edema in his lower extremities was minimized after a week in the intensive care unit for treatment of other problems. This was likely due to the patient's confinement to bed, with his legs elevated to heart level. Patient had blood work performed on May 17, 2023, with results as follows: White blood count 10.6, hemoglobin 11.8, hematocrit 37.4, platelets 169,000, iron 62, TIBC 316, ferritin 568. The patient has a history of pre-existing medical problems and prior procedures, which are listed below. Subjective Subjective Mr. Joyce is a 82-year-old male presenting to wound care center today for follow-up evaluation of bilateral leg swelling and ulceration. Patient has kept his compression wraps clean dry and intact. He notices great improvement with the multilayer compression bandage. He presents today with his new compression stockings as well as to help evaluated. He denies any swelling to the bilateral legs have the been controlled with 3M Multilayer compression wraps. Denies trauma. Denies constitutional symptoms. No other pedal complaints at this time. Objective Data Objective Data Vital Signs: Vital Signs Temp Pulse Resp BP O2 Del Method 96.8 F L 78 18 164/71 H Room Air 08/22/23 11:04 08/22/23 11:04 08/22/23 11:04 08/22/23 11:04 08/22/23 11:04 Oxygen Delivery Method Room Air Weight: 109.769 kg Body Mass Index (BMI) 39.0 Physical Exam Narrative Vascular: DP and PT pulse are palpable bilateral. CFT is brisk. +1 pitting edema appreciated bilateral extremity. Evidence of hemosiderin deposits appreciated bilateral lower extremity. Skin temperature great is warm to warm from proximal ankle to distal digit bilateral. Blanchable erythema to the bilateral lower extremity. No focal increase is appreciated. Neurological: Light touch and epicritic station is intact. Patient responds to painful stimuli. Dermatological: Partial-thickness ulceration appreciated to the anterior left leg measuring 0.1 x 0.1 x 0.1 cm. Wound base is granular. No drainage. No sign of infection. No malodor probe to bone. Musculoskeletal: No strength 5 and 5 bilaterally. No pain on palpation to the bilateral extremity. No pain with calf compression. Debridement Note Debridement Note Post-Debridement Measurements and Additional Note: Post-Debridement Measurements/Treatment - Nurse 1 - General Ulcer Assessment Start: 07/26/23 13:33 Freq: Status: Active Protocol: WC.LOWEXT Activity Type Activity Date Activity User E-sign Co-sign Detail Recorded Client Recorded Date Recorded By Document 07/26/23 13:33 RB Desktop 07/26/23 13:35 RB Document 07/30/23 11:50 KW Desktop 07/30/23 11:55 KW Document 08/14/23 13:12 KW wound center 08/14/23 13:14 KW Document 08/22/23 11:04 KW wound center 08/22/23 11:15 KW 07/26/23 07/30/23 08/14/23 13:33 11:50 13:12 - Today's Visit Information Type of service Nurse-only Nurse-only Follow-up Visit Visit Visit (Physician/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 ) Arrival Mode Ambulatory,Cane Ambulatory,Cane Ambulatory,Cane Transfer Assistance None Accompanied by Patient Identification Verified (Name & Yes Yes Yes ) Patient Requires Transmission-Based No Precautions Height and Weight Body Mass Index (BMI) 39.0 39.0 39.0 BMI Classification Obese Obese Obese Vital Signs Temperature (97.8 F-99.1 F) 96.7 F L 97.8 F Temperature Source Temporal Temporal Pulse Rate (60-100) 79 69 Pulse Location Monitor Monitor Respiratory Rate (12-18) 18 18 Respiratory rate source Observation Observation Oxygen Delivery Method Room Air Blood Pressure (90/60-120/80) 144/76 H 131/73 H Blood Pressure Mean (mm Hg) 98 92 Source Monitor Monitor Position Semi-Fowlers Semi-Fowlers Blood Pressure Location Left Arm Left Forearm History Since Last Visit- (Skip if this is Patient's initial visit) Have you changed medications since your No No No last visit? Any new allergies or adverse reactions No No No Had a fall/change in ADL's that may No No No increase risk of falls Signs or symptoms of abuse and/or No No No neglect since last visit Have you been in the hospital since your No No No last visit? Has dressing in place as prescribed Yes Yes Yes Has compression in place as prescribed Yes Yes Yes Has offloadiing in place as prescribed No N/A N/A Experienced any changes in pain level or No No No management Left Footwear Regular Shoe Regular Shoe Right Footwear Regular Shoe Regular Shoe Pain Scale: 0-10 Numeric Is Patient Pain Free? Yes Yes Yes 08/22/23 11:04 WC - Today's Visit Information Type of service Follow-up Visit (Physician/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 ) Arrival Mode Ambulatory,Cane Transfer Assistance Accompanied by Patient Identification Verified (Name & Yes ) Patient Requires Transmission-Based Precautions Height and Weight Body Mass Index (BMI) 39.0 BMI Classification Obese Vital Signs Temperature (97.8 F-99.1 F) 96.8 F L Temperature Source Temporal Pulse Rate (60-100) 78 Pulse Location Monitor Respiratory Rate (12-18) 18 Respiratory rate source Observation Oxygen Delivery Method Room Air Blood Pressure (90/60-120/80) 164/71 H Blood Pressure Mean (mm Hg) 102 Source Monitor Position Semi-Fowlers Blood Pressure Location Left Arm History Since Last Visit- (Skip if this is Patient's initial visit) Have you changed medications since your No last visit? Any new allergies or adverse reactions No Had a fall/change in ADL's that may No increase risk of falls Signs or symptoms of abuse and/or No neglect since last visit Have you been in the hospital since your No last visit? Has dressing in place as prescribed Yes Has compression in place as prescribed Yes Has offloadiing in place as prescribed N/A Experienced any changes in pain level or No management Left Footwear Regular Shoe Right Footwear Regular Shoe Pain Scale: 0-10 Numeric Is Patient Pain Free? Yes - Nurse 1 - General Ulcer Measurement Start: 07/26/23 13:33 Freq: Status: Active Protocol: Activity Type Activity Date Activity User E-sign Co-sign Detail Recorded Client Recorded Date Recorded By Document 07/26/23 13:33 RB Desktop 07/26/23 13:35 RB Document 08/14/23 13:12 KW wound center 08/14/23 13:14 KW Document 08/22/23 11:04 KW wound center 08/22/23 11:15 KW 07/26/23 08/14/23 08/22/23 13:33 13:12 11:04 Wound Center Nurse 1 #1 LLE Medial -Current Size (cm) - Length 0.1 -Current Size (cm) - Width 0.1 -Total Square Cm 0.01 -Texture (Julia-wound Skin Appearance) Assessed -Moisture (Juila-wound Skin Appearance) Assessed -Color (Julia-wound Skin Appearance) Assessed Lower Limb Edema Present Yes Right Calf (cm) 41.5 42.8 43 Right Ankle (cm) 25.6 28 26 Left Calf (cm) 41 40.6 39.6 Left Ankle (cm) 26.5 29 27 WC - Nurse 2 - General Ulcer CM Notes Start: 07/26/23 13:33 Freq: Status: Active Protocol: Activity Type Activity Date Activity User E-sign Co-sign Detail Recorded Client Recorded Date Recorded By Document 08/08/23 11:22 DS [id number] 08/08/23 11:23 DS Edit Result 08/08/23 11:22 DS (1) [id number] 08/08/23 11:25 DS Document 08/22/23 11:21 JF [id number] 08/22/23 11:21 JF (1) #1 LLE Medial - Post Debridement (cm) - Length => 0.7 - Post Debridement (cm) - Width => 0.7 - Post Debridement (cm) - Depth => 0.1 - Total Square (Post) (cm) => 0.49 - Area of Debridement (cm) - Length => 0.7 - Area of Debridement (cm) - Width => 0.7 - Total Square (Area) (cm) => 0.49 - Tunneling => No - Undermining/Tunneling => No - Circular Undermining => No 08/08/23 08/22/23 11:22 11:21 Wound Center Nurse 2 #1 LLE Medial -Time 11:22 -Correct Patient Yes No -Correct Side, Site, Position Yes No -Correct Procedure Yes No -Procedure Performed Yes No -Type of Procedure Debridement -Clinical Debridement Epidermis / Dermis -Tissue Removed Epidermis, Dermis -Post Debridement (cm) - Length 0.7 0.1 -Post Debridement (cm) - Width 0.7 0.1 -Post Debridement (cm) - Depth 0.1 0.1 -Total Square (Post) (cm) 0.49 0.01 -Area of Debridement (cm) - Length 0.7 0.1 -Area of Debridement (cm) - Width 0.7 0.1 -Total Square (Area) (cm) 0.49 0.01 -Tunneling No -Undermining/Tunneling No -Circular Undermining No -Wound/Ulcer Outcome Not Healed Healed- Epithelialized -Ulcer Cleansing Rinsed/ Irrigated with Saline -Bleeding Controlled with Pressure -Treatment Response Procedure Tolerated Well -Debridement - Open, 1st 20sq cm Yes -Debridement - Subq, 1st 20sq cm No Pain Scale: 0-10 Numeric Is Patient Pain Free? Yes Yes WC - Nurse 3 - General Ulcer D/C NN Start: 07/26/23 13:33 Freq: Status: Active Protocol: Activity Type Activity Date Activity User E-sign Co-sign Detail Recorded Client Recorded Date Recorded By Document 07/26/23 13:33 RB Desktop 07/26/23 13:35 RB Document 07/30/23 11:50 KW Desktop 07/30/23 11:55 KW Document 08/08/23 11:36 JF [id number] 08/08/23 11:37 JF Document 08/14/23 13:12 KW wound center 08/14/23 13:14 KW Document 08/22/23 11:33 [id number] [id number] 08/22/23 11:34 JF 07/26/23 07/30/23 08/08/23 13:33 11:50 11:36 Vital Signs Temperature (97.8 F-99.1 F) 96.7 F L 97.8 F Temperature Source Temporal Temporal Pulse Rate (60-100) 79 69 Pulse Location Monitor Monitor Respiratory Rate (12-18) 18 18 Respiratory rate source Observation Observation Oxygen Delivery Method Room Air Blood Pressure (90/60-120/80) 144/76 H 131/73 H Blood Pressure Mean (mm Hg) 98 92 Source Monitor Monitor Position Semi-Fowlers Semi-Fowlers Blood Pressure Location Left Arm Left Forearm Pain Scale: 0-10 Numeric Is Patient Pain Free? Yes Yes Yes Wound Care Center Nurse 3 #1 LLE Medial -Ulcer Cleansing Rinsed/ Irrigated with Saline -Primary Dressing Applied -Other Dressing xeroform -Primary Dressing Covered/Secured with Dry Gauze bilat LE\ -Multi-Layered Wrap Application Multi-Layer Multi-Layer Comp - Bilat ($ Comp - Bilat ($ ) ) -Stockings -Other APPLIED PT NEW COMPRESSION STOCKINGS Treatment Response Procedure Tolerated Well WC - Visit Discharge Discharge Condition Stable Stable Ambulatory Status Ambulatory Ambulatory,Cane Transportation Private Auto Private Auto Accompanied by Medication Reconcilliation completed & No Yes provided to patient/care provider Clinical Summary of Care Provided Yes Yes 08/14/23 08/22/23 13:12 11:33 Vital Signs Temperature (97.8 F-99.1 F) Temperature Source Pulse Rate (60-100) Pulse Location Respiratory Rate (12-18) Respiratory rate source Oxygen Delivery Method Blood Pressure (90/60-120/80) Blood Pressure Mean (mm Hg) Source Position Blood Pressure Location Pain Scale: 0-10 Numeric Is Patient Pain Free? Yes Yes Wound Care Center Nurse 3 #1 LLE Medial -Ulcer Cleansing Soap and Water -Primary Dressing Applied Other -Other Dressing xeroform -Primary Dressing Covered/Secured with Dry Gauze bilat LE\ -Multi-Layered Wrap Application Multi-Layer Comp - Bilat ($ ) -Stockings Yes: 20/30 mmHg -Other Treatment Response WC - Visit Discharge Discharge Condition Stable Stable Ambulatory Status Ambulatory,Cane Ambulatory,Cane Transportation Private Auto Private Auto Accompanied by Medication Reconcilliation completed & No Yes provided to patient/care provider Clinical Summary of Care Provided Yes Yes Assessment/Plan Assessment/Plan (1) Non-pressure chronic ulcer of other part of left lower leg limited to breakdown of skin: CODE(S): L97.821 - Non-pressure chronic ulcer of other part of left lower leg limited to breakdown of skin PLAN: Patient was examined and evaluated. All findings were discussed with the patient. All questions were answered to the patient's satisfaction. The patient shows evidence of improved edema/swelling to the bilateral lower extremity after using multilayer compression wraps. The patient's ulcerations are measured at 0.1 x 0.1 x 0.1 cm. The patient's new purchased compression wraps were donned without incident. The patient will wear these for 1 month and knows to not get them wet nor use them at night and will remove and don them daily as he begins to ambulate as tolerated in regular clinic shoe gear. The patient will follow-up in 1 week for evaluation. If the patient does show evidence of improved swelling he will be discharged from the wound care center. If he shows evidence of increased welling and breakdown he will be placed back in multilayer compression bandage until a new type of compression device can be purchased/ordered for the patient. Patient and his are understanding of this. Follow-up at the wound care center with Dr. Camilo in 1 week. (2) Other specified peripheral vascular diseases: CODE(S): I73.89 - Other specified peripheral vascular diseases
== END 2023-08-24 23:59 | disposition home or self-care (01) ==
LOC: WC 11:00
PROVIDERS: PCP Nurse Practitioner Family; Referring Provider Internal Medicine Gastroenterology; Visit Provider Podiatrist Foot & Ankle Surgery
DX: L97.821 Non-pressure chronic ulcer of other part of left lower leg limited to breakdown of skin (principal); G47.30 Sleep apnea, unspecified; R60.0 Localized edema; I89.0 Lymphedema, not elsewhere classified; I73.89 Other specified peripheral vascular diseases
CPT/HCPCS: 29581; 97597; 99212; 99213; G0463

== ENCOUNTER 2023-09-19 10:45 | Outpatient (RCR) | payer MEDICARE, SELFPAY ==
[2023-08-25 00:46] VITALS: BP 136/76; PULSE 69; RESP 18; TEMP 36.8; BMI 39.0
[2023-08-29 11:23] VITALS: BP 132/79; PULSE 64; RESP 18; TEMP 35.9; BMI 39.0
--- NOTE | 2023-08-29 12:58 | PCM.WC.PN ---
History of Present Illness Date of Service: 08/29/23 Chief Complaint: Bilateral lower extremity ulcerations, swelling, edema, and lymphedema History of Wound: This is an 82-year-old male who presents with a longstanding history of swelling, edema, and lymphedema in his lower extremities. The patient has recently developed ulcerations in both lower extremities. These ulcerations began as blisters. They were associated with severe swelling, edema, and lymphedema. It appears as though the patient's presenting symptoms and manifestations are related to his daily habits. The patient sleeps in a chair. He does so due to sleep apnea. He is not active. He spends a large part of each day sitting. He requires a cane for ambulation. He denies a history of thrombophlebitis. His relates that the swelling and edema in his lower extremities was minimized after a week in the intensive care unit for treatment of other problems. This was likely due to the patient's confinement to bed, with his legs elevated to heart level. Patient had blood work performed on May 17, 2023, with results as follows: White blood count 10.6, hemoglobin 11.8, hematocrit 37.4, platelets 169,000, iron 62, TIBC 316, ferritin 568. The patient has a history of pre-existing medical problems and prior procedures, which are listed below. Subjective Subjective Mr. Joyce is a 82-year-old male presenting to wound care center today for follow-up evaluation of bilateral leg swelling and ulceration. He has been using compression as tolerated. He admits to great improvement to the bilateral leg swelling. However he believes that he got a wound from donning and removing the compression wraps secondary to a finger nail to the left lower extremity. Objective Data Objective Data Vital Signs: Vital Signs Temp Pulse Resp BP O2 Del Method 96.7 F L 64 18 132/79 H Room Air 08/29/23 11:23 08/29/23 11:23 08/29/23 11:23 08/29/23 11:08/29/23 11:23 Oxygen Delivery Method Room Air Weight: 109.769 kg Body Mass Index (BMI) 39.0 Physical Exam Narrative Vascular: DP and PT pulse are palpable bilateral. CFT is brisk. +1 pitting edema appreciated bilateral extremity. Evidence of hemosiderin deposits appreciated bilateral lower extremity. Skin temperature great is warm to warm from proximal ankle to distal digit bilateral. Blanchable erythema to the bilateral lower extremity. No focal increase is appreciated. Neurological: Light touch and epicritic station is intact. Patient responds to painful stimuli. Dermatological: Partial-thickness ulceration appreciated to the anterior left leg measuring 0.1 x 0.1 x 0.1 cm. Wound base is granular. No drainage. No sign of infection. No malodor probe to bone. Musculoskeletal: No strength 5 and 5 bilaterally. No pain on palpation to the bilateral extremity. No pain with calf compression. 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 WEIGHER ) Arrival Mode Ambulatory,Cane Accompanied by Patient Identification Verified (Name & Yes ) Height and Weight Body Mass Index (BMI) 39.0 BMI Classification Obese Vital Signs Temperature (97.8 F-99.1 F) 96.7 F L Temperature Source Temporal Pulse Rate (60-100) 64 Pulse Location Monitor Respiratory Rate (12-18) 18 Respiratory rate source Observation Oxygen Delivery Method Room Air Blood Pressure (90/60-120/80) 132/79 H Blood Pressure Mean (mm Hg) 96 Source Monitor Position Sitting Blood Pressure Location Left Arm History Since Last Visit- (Skip if this is Patient's initial visit) Have you changed medications since your No last visit? Any new allergies or adverse reactions No Had a fall/change in ADL's that may No increase risk of falls Signs or symptoms of abuse and/or No neglect since last visit Have you been in the hospital since your No last visit? Has dressing in place as prescribed Yes Has compression in place as prescribed Yes Has offloadiing in place as prescribed N/A Experienced any changes in pain level or No management Left Footwear Regular Shoe Right Footwear Regular Shoe Pain Scale: 0-10 Numeric Is Patient Pain Free? Yes - Nurse 1 - General Ulcer Measurement Start: 08/29/23 11:23 Freq: Status: Active Protocol: Activity Type Activity Date Activity User E-sign Co-sign Detail Recorded Client Recorded Date Recorded By Document 08/29/23 11:23 [facility] 08/29/23 11:31 08/29/23 11:23 Wound Center Nurse 1 #5 Left Lateral Leg -Combined with other wound Yes -Combined with (Name of Wound-Exactly cluster as it is documented) -Current Size (cm) - Length 6.0 -Current Size (cm) - Width 3.0 -Current Size (cm) - Depth 0.1 -Total Square Cm 18.00 -Date of Last Picture (Recall this 08/29/23 field) -Photo Taken Yes -Epithelialization None Present -Tunneling No -Undermining/Tunneling No -Circular Undermining No -Exudate Amt None Present -Wound Margin Distinct, Outline Attached -Granulation Quality Red -Necrosis Amt None Present (0 %) -Texture (Julia-wound Skin Appearance) Assessed -Moisture (Julia-wound Skin Appearance) Assessed -Color (Julia-wound Skin Appearance) Assessed, Erythema -Temperature (Julia-wound Skin No Abnormality Appearance) (Pt Warm) -Ulcer Cleansing Not Cleansed -Foul Odor after Cleansing No -Anesthetic Used 5% Lidocaine Gel #1 LLE Medial -Combined with (Name of Wound-Exactly 0.1 as it is documented) -Current Size (cm) - Length 0.1 -Current Size (cm) - Width 0.1 -Total Square Cm 0.01 Lower Limb Edema Present No Right Calf (cm) 46.0 Right Ankle (cm) 25.3 Left Calf (cm) 45 Left Ankle (cm) 25.5 - Nurse 2 - General Ulcer CM Notes Start: 08/29/23 11:23 Freq: Status: Active Protocol: Activity Type Activity Date Activity User E-sign Co-sign Detail Recorded Client Recorded Date Recorded By Document 08/29/23 11:48 [id number] 08/29/23 11:49 08/29/23 11:48 Wound Center Nurse 2 #5 Left Lateral Leg -Correct Patient No -Correct Side, Site, Position No -Correct Procedure No -Procedure Performed No -Wound/Ulcer Outcome Not Healed #1 LLE Medial -Correct Patient No -Correct Side, Site, Position No -Correct Procedure No -Procedure Performed No -Wound/Ulcer Outcome Not Healed Pain Scale: 0-10 Numeric Is Patient Pain Free? Yes - Nurse 3 - General Ulcer D/C NN Start: 08/29/23 11:23 Freq: Status: Active Protocol: Activity Type Activity Date Activity User E-sign Co-sign Detail Recorded Client Recorded Date Recorded By Document 08/29/23 12:06 [facility] 08/29/23 12:07 08/29/23 12:06 Wound Care Center Nurse 3 #5 Left Lateral Leg -Ulcer Cleansing Not Cleansed -Foul Odor after Cleansing No -Primary Dressing Applied NonAdherent Contact Layer -Primary Dressing Covered/Secured with Dry Gauze,Dry Gauze & Roll Gauze,Secured with Tape bilat LE\ -Lotion applied to leg before No compression wrap -Multi-Layered Wrap Application Multi-Layer Comp - Bilat ($ ) Pain Scale: 0-10 Numeric Is Patient Pain Free? Yes - Visit Discharge Discharge Condition Stable Ambulatory Status Ambulatory,Cane Transportation Private Auto Clinical Summary of Care Provided Yes Assessment/Plan Assessment/Plan (1) Non-pressure chronic ulcer of other part of left lower leg limited to breakdown of skin: CODE(S): L97.821 - Non-pressure chronic ulcer of other part of left lower leg limited to breakdown of skin PLAN: Patient was examined and evaluated. All findings were discussed with the patient. All questions were answered to the patient's satisfaction. The patient will be placed on bilateral 3M multilayer compression bandages secondary to his edema and partial wound to the left leg. We will begin authorization through the patient's insurance through [employer] for CircAid wraps. It was educated the patient that he will pay [id number] which she is understanding of. Patient will follow-up for nurse visit in approximately 1 week [address] then with Dr. Camilo in 2 weeks. (2) Other specified peripheral vascular diseases: CODE(S): I73.89 - Other specified peripheral vascular diseases
--- NOTE | 2023-08-31 09:13 | WC ---
08/29/2023 LEFT LATERAL LEG
[2023-09-05 11:25] VITALS: BP 141/90; PULSE 65; RESP 16; TEMP 36.2; BMI 39.0
[2023-09-14 11:13] VITALS: BP 138/67; PULSE 57; RESP 18; TEMP 36; BMI 39.0
[2023-09-19 11:07] VITALS: BP 170/88; PULSE 77; RESP 18; TEMP 36.1; BMI 39.0
--- NOTE | 2023-09-19 13:11 | PCM.WC.PN ---
History of Present Illness Date of Service: 09/19/23 Chief Complaint: Bilateral lower extremity ulcerations, swelling, edema, and lymphedema History of Wound: This is an 82-year-old male who presents with a longstanding history of swelling, edema, and lymphedema in his lower extremities. The patient has recently developed ulcerations in both lower extremities. These ulcerations began as blisters. They were associated with severe swelling, edema, and lymphedema. It appears as though the patient's presenting symptoms and manifestations are related to his daily habits. The patient sleeps in a chair. He does so due to sleep apnea. He is not active. He spends a large part of each day sitting. He requires a cane for ambulation. He denies a history of thrombophlebitis. His relates that the swelling and edema in his lower extremities was minimized after a week in the intensive care unit for treatment of other problems. This was likely due to the patient's confinement to bed, with his legs elevated to heart level. Patient had blood work performed on May 17, 2023, with results as follows: White blood count 10.6, hemoglobin 11.8, hematocrit 37.4, platelets 169,000, iron 62, TIBC 316, ferritin 568. The patient has a history of pre-existing medical problems and prior procedures, which are listed below. Subjective Subjective Mr. Joyce is a 82-year-old male presenting to wound care center today for follow-up evaluation of bilateral leg swelling and ulceration. He has been using compression as tolerated. He admits to great improvement to the bilateral leg swelling. He denies trauma. Denies constitutional symptoms. No other pedal complaints at this time. Objective Data Objective Data Vital Signs: Vital Signs Temp Pulse Resp BP O2 Del Method 97.0 F L 77 18 170/88 H Room Air 09/19/23 11:07 09/19/23 11:07 09/19/23 11:07 09/19/23 11:07 09/19/23 11:07 Oxygen Delivery Method Room Air Weight: 109.769 kg Body Mass Index (BMI) 39.0 Physical Exam Narrative Vascular: DP and PT pulse are palpable bilateral. CFT is brisk. +1 pitting edema appreciated bilateral extremity, improved. Evidence of hemosiderin deposits appreciated bilateral lower extremity. Skin temperature great is warm to warm from proximal ankle to distal digit bilateral. Blanchable erythema to the bilateral lower extremity. No focal increase is appreciated. Neurological: Light touch and epicritic station is intact. Patient responds to painful stimuli. Dermatological: Partial-thickness ulceration healed. Musculoskeletal: No strength 5 and 5 bilaterally. No pain on palpation to the bilateral extremity. No pain with calf compression. Debridement Note Debridement Note Post-Debridement Measurements and Additional Note: Post-Debridement Measurements/Treatment - Nurse 1 - General Ulcer Assessment Start: 08/29/23 11:23 Freq: Status: Active Protocol: YEYO Activity Type Activity Date Activity User E-sign Co-sign Detail Recorded Client Recorded Date Recorded By Document 08/29/23 11:23 GM wc 08/29/23 11:31 GM Document 09/05/23 11:25 KW wound center 09/05/23 11:48 KW Document 09/14/23 11:13 DS 1 09/14/23 11:14 DS Document 09/19/23 11:07 KW ; 09/19/23 11:07 KW 08/29/23 09/05/23 09/14/23 11:23 11:25 11:13 - Today's Visit Information Type of service Follow-up Visit Nurse-only Nurse-only (Physician/SPEECH LANGUAGE PATHOLOGIST ASSISTANT Visit Visit ) Arrival Mode Ambulatory,Cane Ambulatory,Cane Ambulatory,Cane Accompanied by Patient Identification Verified (Name & Yes ) Safety Precautions Fall Prevention Height and Weight Body Mass Index (BMI) 39.0 39.0 39.0 BMI Classification Obese Obese Obese Vital Signs Temperature (97.8 F-99.1 F) 96.7 F L 97.2 F L 96.8 F L Temperature Source Temporal Temporal Temporal Pulse Rate (60-100) 64 65 57 L Pulse Location Monitor Monitor Monitor Respiratory Rate (12-18) 18 16 18 Respiratory rate source Observation Observation Observation Oxygen Delivery Method Room Air Room Air Room Air Blood Pressure (90/60-120/80) 132/79 H 141/90 H 138/67 H Blood Pressure Mean (mm Hg) 96 107 90 Source Monitor Monitor Monitor Position Sitting Semi-Fowlers Semi-Fowlers Blood Pressure Location Left Arm Left Arm Right Arm History Since Last Visit- (Skip if this is Patient's initial visit) Have you changed medications since your No No No last visit? Any new allergies or adverse reactions No No No Had a fall/change in ADL's that may No No No increase risk of falls Signs or symptoms of abuse and/or No No No neglect since last visit Have you been in the hospital since your No No No last visit? Has dressing in place as prescribed Yes Yes Yes Has compression in place as prescribed Yes Yes Yes Has offloadiing in place as prescribed N/A N/A N/A Experienced any changes in pain level or No No No management Left Footwear Regular Shoe Regular Shoe Regular Shoe Right Footwear Regular Shoe Regular Shoe Regular Shoe Pain Scale: 0-10 Numeric Is Patient Pain Free? Yes Yes Yes 09/19/23 11:07 - Today's Visit Information Type of service Follow-up Visit (Physician/SPEECH LANGUAGE PATHOLOGIST ASSISTANT ) Arrival Mode Ambulatory,Cane Accompanied by Patient Identification Verified (Name & Yes ) Safety Precautions Height and Weight Body Mass Index (BMI) 39.0 BMI Classification Obese Vital Signs Temperature (97.8 F-99.1 F) 97.0 F L Temperature Source Temporal Pulse Rate (60-100) 77 Pulse Location Monitor Respiratory Rate (12-18) 18 Respiratory rate source Observation Oxygen Delivery Method Room Air Blood Pressure (90/60-120/80) 170/88 H Blood Pressure Mean (mm Hg) 115 Source Monitor Position Semi-Fowlers Blood Pressure Location Right Arm History Since Last Visit- (Skip if this is Patient's initial visit) Have you changed medications since your No last visit? Any new allergies or adverse reactions No Had a fall/change in ADL's that may No increase risk of falls Signs or symptoms of abuse and/or No neglect since last visit Have you been in the hospital since your No last visit? Has dressing in place as prescribed No Has compression in place as prescribed Yes Has offloadiing in place as prescribed N/A Experienced any changes in pain level or No management Left Footwear Regular Shoe Right Footwear Regular Shoe Pain Scale: 0-10 Numeric Is Patient Pain Free? Yes - Nurse 1 - General Ulcer Measurement Start: 08/29/23 11:23 Freq: Status: Active Protocol: Activity Type Activity Date Activity User E-sign Co-sign Detail Recorded Client Recorded Date Recorded By Document 08/29/23 11:23 [facility] 08/29/23 11:31 Document 09/05/23 11:25 KW wound center 09/05/23 11:48 KW Document 09/14/23 11:14 DS 1 09/14/23 11:30 DS 08/29/23 09/05/23 09/14/23 11:23 11:25 11:14 Wound Center Nurse 1 #5 Left Lateral Leg -Combined with other wound Yes -Combined with (Name of Wound-Exactly cluster as it is documented) -Current Size (cm) - Length 6.0 -Current Size (cm) - Width 3.0 -Current Size (cm) - Depth 0.1 -Total Square Cm 18.00 -Date of Last Picture (Recall this 08/29/23 field) -Photo Taken Yes -Epithelialization None Present -Tunneling No -Undermining/Tunneling No -Circular Undermining No -Exudate Amt None Present -Wound Margin Distinct, Outline Attached -Granulation Quality Red -Necrosis Amt None Present (0 %) -Texture (Julia-wound Skin Appearance) Assessed -Moisture (Julia-wound Skin Appearance) Assessed -Color (Julia-wound Skin Appearance) Assessed, Erythema -Temperature (Julia-wound Skin No Abnormality Appearance) (Pt Warm) -Ulcer Cleansing Not Cleansed -Foul Odor after Cleansing No -Anesthetic Used 5% Lidocaine Gel #1 LLE Medial -Combined with (Name of Wound-Exactly 0.1 as it is documented) -Current Size (cm) - Length 0.1 -Current Size (cm) - Width 0.1 -Total Square Cm 0.01 Lower Limb Edema Present No Right Calf (cm) 46.0 42 42.7 Right Ankle (cm) 25.3 26.5 26.6 Left Calf (cm) 45 41 40.8 Left Ankle (cm) 25.5 27 27.0 WC - Nurse 2 - General Ulcer CM Notes Start: 08/29/23 11:23 Freq: Status: Active Protocol: Activity Type Activity Date Activity User E-sign Co-sign Detail Recorded Client Recorded Date Recorded By Document 08/29/23 11:48 [facility] [id number] 08/29/23 11:49 Document 09/19/23 11:18 JF 000 09/19/23 11:24 JF 08/29/23 09/19/23 11:48 11:18 Wound Center Nurse 2 #5 Left Lateral Leg -Correct Patient No No -Correct Side, Site, Position No No -Correct Procedure No No -Procedure Performed No No -Post Debridement (cm) - Length 0 -Post Debridement (cm) - Width 0 -Post Debridement (cm) - Depth 0 -Total Square (Post) (cm) 0 -Area of Debridement (cm) - Length 0 -Area of Debridement (cm) - Width 0 -Total Square (Area) (cm) 0 -Wound/Ulcer Outcome Not Healed Healed- Epithelialized #1 LLE Medial -Correct Patient No No -Correct Side, Site, Position No No -Correct Procedure No No -Procedure Performed No No -Post Debridement (cm) - Length 0 -Post Debridement (cm) - Width 0 -Post Debridement (cm) - Depth 0 -Total Square (Post) (cm) 0 -Area of Debridement (cm) - Length 0 -Area of Debridement (cm) - Width 0 -Total Square (Area) (cm) 0 -Wound/Ulcer Outcome Not Healed Healed- Epithelialized Pain Scale: 0-10 Numeric Is Patient Pain Free? Yes Yes - Nurse 3 - General Ulcer D/C NN Start: 08/29/23 11:23 Freq: Status: Active Protocol: Activity Type Activity Date Activity User E-sign Co-sign Detail Recorded Client Recorded Date Recorded By Document 08/29/23 12:06 [facility] 08/29/23 12:07 Document 09/05/23 11:25 KW wound center 09/05/23 11:48 KW Document 09/14/23 11:14 DS 1 09/14/23 11:30 DS Document 09/19/23 11:24 JF 000 09/19/23 11:25 JF 08/29/23 09/05/23 09/14/23 12:06 11:25 11:14 Wound Care Center Nurse 3 #5 Left Lateral Leg -Ulcer Cleansing Not Cleansed Soap and Water -Foul Odor after Cleansing No -Primary Dressing Applied NonAdherent Contact Layer -Primary Dressing Covered/Secured with Dry Gauze,Dry Gauze & Roll Gauze,Secured with Tape #1 LLE Medial -Ulcer Cleansing Soap and Water -Primary Dressing Applied NonAdherent Contact Layer -Primary Dressing Covered/Secured with Dry Gauze & Roll Gauze, Secured with Tape bilat LE\ -Lotion applied to leg before No Yes compression wrap -Multi-Layered Wrap Application Multi-Layer Multi-Layer Comp - Bilat ($ Comp - Bilat ($ ) ) -Stockings -Other circades applied Vital Signs Temperature (97.8 F-99.1 F) 97.2 F L Temperature Source Temporal Pulse Rate (60-100) 65 Pulse Location Monitor Respiratory Rate (12-18) 16 Respiratory rate source Observation Oxygen Delivery Method Room Air Blood Pressure (90/60-120/80) 141/90 H Blood Pressure Mean (mm Hg) 107 Source Monitor Position Semi-Fowlers Blood Pressure Location Left Arm Pain Scale: 0-10 Numeric Is Patient Pain Free? Yes Yes Yes WC - Visit Discharge Discharge Condition Stable Ambulatory Status Ambulatory,Cane Transportation Private Auto Accompanied by Medication Reconcilliation completed & provided to patient/care provider Clinical Summary of Care Provided Yes 09/19/23 11:24 Wound Care Center Nurse 3 #5 Left Lateral Leg -Ulcer Cleansing -Foul Odor after Cleansing -Primary Dressing Applied -Primary Dressing Covered/Secured with #1 LLE Medial -Ulcer Cleansing -Primary Dressing Applied -Primary Dressing Covered/Secured with bilat LE\ -Lotion applied to leg before compression wrap -Multi-Layered Wrap Application -Stockings Yes: circaids -Other Vital Signs Temperature (97.8 F-99.1 F) Temperature Source Pulse Rate (60-100) Pulse Location Respiratory Rate (12-18) Respiratory rate source Oxygen Delivery Method Blood Pressure (90/60-120/80) Blood Pressure Mean (mm Hg) Source Position Blood Pressure Location Pain Scale: 0-10 Numeric Is Patient Pain Free? Yes WC - Visit Discharge Discharge Condition Stable Ambulatory Status Ambulatory,Cane Transportation Private Auto Accompanied by Medication Reconcilliation completed & Yes provided to patient/care provider Clinical Summary of Care Provided Yes Assessment/Plan Assessment/Plan (1) Non-pressure chronic ulcer of other part of left lower leg limited to breakdown of skin: CODE(S): L97.821 - Non-pressure chronic ulcer of other part of left lower leg limited to breakdown of skin PLAN: Patient was examined and evaluated. All findings were discussed with the patient. All questions were answered to the patient's satisfaction. Patient's bilateral lower extremity swelling is improved with his CircAid wraps. He will continue to follow their application as instructed. Patient is very grateful for his care. He will follow-up with the wound care center as needed. The patient left the office pleased with his visit. (2) Other specified peripheral vascular diseases: CODE(S): I73.89 - Other specified peripheral vascular diseases
== END 2023-09-23 23:59 | disposition home or self-care (01) ==
LOC: WC 10:45
PROVIDERS: PCP Nurse Practitioner Family; Referring Provider Internal Medicine Gastroenterology; Visit Provider Podiatrist Foot & Ankle Surgery
DX: I73.89 Other specified peripheral vascular diseases (principal); L97.821 Non-pressure chronic ulcer of other part of left lower leg limited to breakdown of skin; I89.0 Lymphedema, not elsewhere classified; G47.30 Sleep apnea, unspecified; R60.0 Localized edema; M79.89 Other specified soft tissue disorders
CPT/HCPCS: 29581; 99212; 99213; G0463

== ENCOUNTER 2023-10-04 00:34 | Outpatient (RCR) | payer MEDICARE, SELFPAY ==
[2023-09-24 00:34] VITALS: BP 136/76; PULSE 69; RESP 18; TEMP 36.8; BMI 39.0
== END 2023-10-04 23:00 | disposition home or self-care (01) ==
LOC: WC 00:34
PROVIDERS: PCP Nurse Practitioner Family; Referring Provider Internal Medicine Gastroenterology; Visit Provider Podiatrist Foot & Ankle Surgery
DX: Z00.00 Encounter for general adult medical examination without abnormal findings (principal)
CPT/HCPCS: 96360; 96361

== ENCOUNTER → 2024-01-14 | Outpatient (CLI) | payer MEDICARE, SELFPAY ==
--- OUTSIDE RECORDS SUMMARY | 2024-01-14 09:28 | XMS RPT_ITS | CCD ---
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 ([place]) Comment on above: Performed By: #### C ALXEANDRE DUGGAN, ANEU #### [place] [address] #### LIPID, CMP, GFR, VIDH #### [address] [address] Basophils (Bld) [#/Vol] 0.00 10 3/mcL Normal 0.00-0.19 [facility] ([place]) Comment on above: Performed By: #### C BCMIGUELIFF, ANEU #### [address] [address] #### LIPID, CMP, GFR, VIDH #### [address] [address] Basophils/100 WBC (Bld) 0.4 % Normal 0.0-2.5 [facility] ([place]) Comment on above: Performed By: #### C BCALEXANDRE, ANEU #### [place] [address] #### LIPID, CMP, GFR, VIDH #### [address] [address] Eosinophils (Bld) [#/Vol] 0.10 10 3/mcL Normal 0.00-0.40 [facility] ([place]) Comment on above: Performed By: #### C BC ADIFF, ANEU #### [place] [address] #### LIPID, CMP, GFR, VIDH #### [address] [address] Eosinophils/100 WBC (Bld) 1.6 % Normal 0.0-7.0 [facility] ([place]) Comment on above: Performed By: #### C BC, ADIFF, ANEU #### [address] [address] #### LIPID, CMP, GFR, VIDH #### [address] [address] Lymphocytes (Bld) [#/Vol] 2.40 10 3/mcL Normal 0.77-3.85 [facility] ([place]) Comment on above: Performed By: #### C BC, ADIFF, ANEU #### [address] [address] #### LIPID, CMP, GFR, VIDH #### [address] [address] Lymphocytes/100 WBC (Bld) 35.1 % Normal 10.0-50.0 [facility] ([place]) Comment on above: Performed By: #### C BC, ADIFF, ANEU #### [address] [address] #### LIPID, CMP, GFR, VIDH #### [address] [address] Monocytes/100 WBC (Bld) 12.1 % Normal 1.7-13.0 [facility] ([place]) Comment on above: Performed By: #### C BC, ADIFF, ANEU #### [address] [address] #### LIPID, CMP, GFR, VIDH #### [address] [address] Neutrophils/100 WBC (Bld) 50.8 % Normal 37.0-80.0 [facility] ([place]) Comment on above: Performed By: #### C BC, ADIFF, ANEU #### [address] [address] #### LIPID, CMP, GFR, VIDH #### [address] [address] .GFRon 06-21-2019 GFR 65 ml/min/1.73sqm Normal [facility] ([place]) Comment on above: Result Comment: GFR Population mean for , Non- Americans Ages 20-29 = 116 mL/min/1.73 sq.m. Ages 30-39 = 107 mL/min/1.73 sq.m. Ages 40-49 = 99 mL/min/1.73 sq.m. Ages 50-59 = 93 mL/min/1.73 sq.m. Ages 60-69 = 85 mL/min/1.73 sq.m. Ages 70+ = 75 mL/min/1.73 sq.m. Chronic Kidney Disease: Less than 60 mL/min/1.73 square meters End Stage Renal Disease: Less than 15 mL/min/1.73 square meters Performed By: #### C BC, ALEXANDRE, ANEU #### [address] [address] #### LIPID, CMP, GFR, VIDH #### [address] [address] GFR Non- 54 ml/min/1.73sqm Normal [facility] ([place]) Comment on above: Result Comment: GFR Population mean for , Non- Americans Ages 20-29 = 116 mL/min/1.73 sq.m. Ages 30-39 = 107 mL/min/1.73 sq.m. Ages 40-49 = 99 mL/min/1.73 sq.m. Ages 50-59 = 93 mL/min/1.73 sq.m. Ages 60-69 = 85 mL/min/1.73 sq.m. Ages 70+ = 75 mL/min/1.73 sq.m. Chronic Kidney Disease: Less than 60 mL/min/1.73 square meters End Stage Renal Disease: Less than 15 mL/min/1.73 square meters Performed By: #### C BC, ADIFF, ANEU #### [address] [address] #### LIPID, CMP, GFR, VIDH #### [address] [address] .NEUABSon 06-21-2019 Neutrophils (Bld) [#/Vol] 3.50 10 3/mcL Normal 2.85-6.16 [facility] ([place]) Comment on above: Performed By: #### C MIGUEL DUGGANIFF, ANEU #### [place] [address] #### LIPID, CMP, GFR, VIDH #### [place] [address] A1Con 06-21-2019 HbA1c (Bld) [Mass fraction] 6.3 % Normal 4.3-6.4 [facility] ([place]) Comment on above: Performed By: #### C ALEXANDRE DUGGAN, ANEU #### [place] [address] #### LIPID, CMP, GFR, VIDH #### [place] [address] CBCon 06-21-2019 Erythrocyte distribution width (RBC) [Ratio] 14.5 % Normal 11.5-14.5 [facility] ([place]) Comment on above: Performed By: #### C ALEXANDRE DUGGAN, ANEU #### [place] [address] #### LIPID, CMP, GFR, VIDH #### [place] [address] Hematocrit (Bld) [Volume fraction] 39.3 % Low 42.0-52.0 [facility] ([place]) Comment on above: Performed By: #### C BC ADIFF, ANEU #### [place] [address] #### LIPID, CMP, GFR, VIDH #### [place] [address] Hemoglobin (Bld) [Mass/Vol] 13.1 G/dL Low 14.0-18.0 [facility] ([place]) Comment on above: Performed By: #### C ALEXANDRE DUGGAN, ANEU #### [place] [address] #### LIPID, CMP, GFR, VIDH #### [address] [address] MCH (RBC) [Entitic mass] 31.2 pg Normal 27.0-31.2 [facility] ([place]) Comment on above: Performed By: #### C BC, ADIFF, ANEU #### [place] [address] #### LIPID, CMP, GFR, VIDH #### [place] [address] MCHC (RBC) [Mass/Vol] 33.4 G/dL Normal 31.8-35.4 [facility] ([place]) Comment on above: Performed By: #### C MIGUEL DUGGANIFF, ANEU #### [place] [address] #### LIPID, CMP, GFR, VIDH #### [place] [address] MCV (RBC) [Entitic vol] 93.4 fL Normal 80.0-94.0 [facility] ([place]) Comment on above: Performed By: #### C ALEXANDRE DUGGAN, ANEU #### [place] [address] #### LIPID, CMP, GFR, VIDH #### [place] [address] Platelet mean volume (Bld) [Entitic vol] 8.9 fL Normal 7.4-10.4 [facility] ([place]) Comment on above: Performed By: #### C BC, ADIFF, ANEU #### [place] [address] #### LIPID, CMP, GFR, VIDH #### [place] [id number] Platelets (Bld) [#/Vol] 149 10 3/mcL Normal 130-400 [facility] ([place]) Comment on above: Performed By: #### C BCALEXANDRE, ANEU #### [place] [address] #### LIPID, CMP, GFR, VIDH #### [address] [address] RBC (Bld) [#/Vol] 4.21 10 6/mcL Normal 4.04-6.13 [facility] ([place]) Comment on above: Performed By: #### C MIGUEL DUGGANIFF, ANEU #### [place] [address] #### LIPID, CMP, GFR, VIDH #### [place] [address] WBC (Bld) [#/Vol] 6.90 10 3/mcL Normal 4.60-10.80 [facility] ([place]) Comment on above: Performed By: #### C ALEXANDRE DUGGAN, ANEU #### [place] [address] #### LIPID, CMP, GFR, VIDH #### [place] [address] CMPon 06-21-2019 Albumin [Mass/Vol] 3.9 G/dL Normal 3.4-4.8 [facility] ([place]) Comment on above: Performed By: #### C ALEXANDRE DUGGAN, ANEU #### [place] [address] #### LIPID, CMP, GFR, VIDH #### [place] [address] Albumin/Globulin [Mass ratio] 1.2 {ratio} Normal 1.1-2.5 [facility] ([place]) Comment on above: Performed By: #### C BC ADIFF, ANEU #### [place] [address] #### LIPID, CMP, GFR, VIDH #### [place] [id number] ALP [Catalytic activity/Vol] 73 U/L Normal 40-135 [facility] ([place]) Comment on above: Performed By: #### C BCALEXANDRE, ANEU #### [place] [address] #### LIPID, CMP, GFR, VIDH #### [address] [address] ALT [Catalytic activity/Vol] 25 U/L Normal 10-35 [facility] ([place]) Comment on above: Performed By: #### C BC, ADIFF, ANEU #### [place] [address] #### LIPID, CMP, GFR, VIDH #### [address] [address] AST [Catalytic activity/Vol] 28 U/L Normal 10-40 [facility] ([place]) Comment on above: Performed By: #### C BC ADIFF, ANEU #### [place] [address] #### LIPID, CMP, GFR, VIDH #### [address] [address] Bili Total 0.7 mg/dL Normal 0.2-1.0 [facility] ([place]) Comment on above: Result Comment: Use of this assay is not recommended for patients undergoing treatment with eltrombopag due to the potential for falsely elevated results. Performed By: #### C BC ADIFF, ANEU #### [place] [address] #### LIPID, CMP, GFR, VIDH #### [address] [address] Calcium [Mass/Vol] 9.4 mg/dL Normal 8.4-10.2 [facility] ([place]) Comment on above: Performed By: #### C BC, ADIFF, ANEU #### [place] [address] #### LIPID, CMP, GFR, VIDH #### [address] [address] Chloride [Moles/Vol] 105 mmol/L Normal 98-107 [facility] ([place]) Comment on above: Performed By: #### C BC, ADIFF, ANEU #### [place] [id number] #### LIPID, CMP, GFR, VIDH #### [address] [address] CO2 [Moles/Vol] 32 mmol/L High 23-31 [facility] ([place]) Comment on above: Performed By: #### C BC, ADIFF, ANEU #### [address] [address] #### LIPID, CMP, GFR, VIDH #### [address] [address] Creatinine [Mass/Vol] 1.29 mg/dL Normal 0.70-1.30 [facility] ([place]) Comment on above: Performed By: #### C BC, ADIFF, ANEU #### [place] [address] #### LIPID, CMP, GFR, VIDH #### [place] [address] Electrolyte Balance 5.0 mEq/L Normal [facility] ([place]) Comment on above: Performed By: #### C BC, ADIFF, ANEU #### [place] [address] #### LIPID, CMP, GFR, VIDH #### [address] [address] Globulin (S) [Mass/Vol] 3.2 G/dL Normal [facility] ([place]) Comment on above: Performed By: #### C BC, ADIFF, ANEU #### [place] [address] #### LIPID, CMP, GFR, VIDH #### [address] [address] Glucose [Mass/Vol] 108 mg/dL Normal 83-110 [facility] ([place]) Comment on above: Performed By: #### C BC, ADIFF, ANEU #### [place] [address] #### LIPID, CMP, GFR, VIDH #### [address] [address] Potassium [Moles/Vol] 3.9 mmol/L Normal 3.5-5.1 [facility] ([place]) Comment on above: Performed By: #### C ALEXANDRE DUGGAN, ANEU #### [address] [address] #### LIPID, CMP, GFR, VIDH #### [address] [address] Protein [Mass/Vol] 7.1 G/dL Normal 6.4-8.2 [facility] ([place]) Comment on above: Performed By: #### C ALEXANDRE DUGGAN, ANEU #### [address] [address] #### LIPID, CMP, GFR, VIDH #### [address] [address] Sodium [Moles/Vol] 142 mmol/L Normal 136-145 [facility] ([place]) Comment on above: Performed By: #### C MIGUEL DUGGANIFF, ANEU #### [address] [address] #### LIPID, CMP, GFR, VIDH #### [address] [address] Urea nitrogen [Mass/Vol] 18 mg/dL Normal 7-18 [facility] ([place]) Comment on above: Performed By: #### ALEXANDRE AMADOR, ANEU #### [address] [address] #### LIPID, CMP, GFR, VIDH #### [address] [address] Urea nitrogen/Creatinine [Mass ratio] 14 ratio Normal 7-27 [facility] ([place]) Comment on above: Performed By: #### C ALEXANDRE DUGGAN, ANEU #### [address] [address] #### LIPID, CMP, GFR, VIDH #### [address] [address] LIPIDon 06-21-2019 Cholesterol [Mass/Vol] 89 mg/dL Normal 0-200 [facility] ([place]) Comment on above: Result Comment: Chol esterol Reference Interval: Less than 200 Desirable 200-239 Borderline high risk 240 and above High risk Performed By: #### C BC, ADIFF, ANEU #### [address] [address] #### LIPID, CMP, GFR, VIDH #### [address] [address] Cholesterol in HDL [Mass/Vol] 24 mg/dL Low 40-60 [facility] ([place]) Comment on above: Performed By: #### C BC, ADIFF, ANEU #### [address] [address] #### LIPID, CMP, GFR, VIDH #### [address] [address] Cholesterol in LDL [Mass/Vol] 47 mg/dL Normal 0-130 [facility] ([place]) Comment on above: Performed By: #### C BC, ADIFF, ANEU #### [address] [address] #### LIPID, CMP, GFR, VIDH #### [address] [address] Triglyceride [Mass/Vol] 92 mg/dL Normal 0-150 [facility] ([place]) Comment on above: Result Comment: Trig lyceride Reference Interval: Less than 150 Normal 150-199 Borderline high risk 200-499 High risk 500 or higher Very high risk Performed By: #### C BC, ADIFF, ANEU #### [address] [address] #### LIPID, CMP, GFR, VIDH #### [address] [address] VIDHon 06-21-2019 Vit. D 25-Hydroxy 23 ng/mL Normal [facility] ([place]) Comment on above: Result Comment: Inte rpretive Values Based on Total 25(OH)D: Severe Deficiency <20 ng/mL Mild to Moderate Deficiency 20-30 ng/mL Optimum Levels 30-100 ng/mL Toxicity Possible >100 ng/mL Performed By: #### C ALEXANDRE DUGGAN, ANEU #### [place] [address] #### LIPID, CMP, GFR, VIDH #### [address] [address] .Auto Diffon 05-15-2019 Ammonia (P) [Mass/Vol] 0.60 10 3/mcL Normal 0.15-1.00 [facility] ([place]) Comment on above: Performed By: #### ALEXANDRE AMADOR, ANEU #### [place] [address] #### LIPID, CMP, GFR, VIDH #### [address] [address] Basophils (Bld) [#/Vol] 0.00 10 3/mcL Normal 0.00-0.19 [facility] ([place]) Comment on above: Performed By: #### ALEXANDRE AMADOR, ANEU #### [place] [address] #### LIPID, CMP, GFR, VIDH #### [address] [address] Basophils/100 WBC (Bld) 0.3 % Normal 0.0-2.5 [facility] ([place]) Comment on above: Performed By: #### ALEXANDRE AMADOR, ANEU #### [place] [address] #### LIPID, CMP, GFR, VIDH #### [address] [address] Eosinophils (Bld) [#/Vol] 0.10 10 3/mcL Normal 0.00-0.40 [facility] ([place]) Comment on above: Performed By: #### ALEXANDRE AMADOR, ANEU #### [place] [address] #### LIPID, CMP, GFR, VIDH #### [address] [address] Eosinophils/100 WBC (Bld) 1.6 % Normal 0.0-7.0 [facility] ([place]) Comment on above: Performed By: #### C BC, ADIFF, ANEU #### [address] [address] #### LIPID, CMP, GFR, VIDH #### [address] [address] Lymphocytes (Bld) [#/Vol] 1.40 10 3/mcL Normal 0.77-3.85 [facility] ([place]) Comment on above: Performed By: #### C BC, ADIFF, ANEU #### [place] [address] #### LIPID, CMP, GFR, VIDH #### [address] [address] Lymphocytes/100 WBC (Bld) 25.2 % Normal 10.0-50.0 [facility] ([place]) Comment on above: Performed By: #### C BC, ADIFF, ANEU #### [place] [address] #### LIPID, CMP, GFR, VIDH #### [address] [address] Monocytes/100 WBC (Bld) 11.8 % Normal 1.7-13.0 [facility] ([place]) Comment on above: Performed By: #### C BC, ADIFF, ANEU #### [place] [address] #### LIPID, CMP, GFR, VIDH #### [address] [address] Neutrophils/100 WBC (Bld) 61.1 % Normal 37.0-80.0 [facility] ([place]) Comment on above: Performed By: #### C BC, ADIFF, ANEU #### [place] [address] #### LIPID, CMP, GFR, VIDH #### [address] [address] .GFRon 05-15-2019 GFR Non- 52 ml/min/1.73sqm Normal [facility] ([place]) Comment on above: Result Comment: GFR Population mean for , Non- Americans Ages 20-29 = 116 mL/min/1.73 sq.m. Ages 30-39 = 107 mL/min/1.73 sq.m. Ages 40-49 = 99 mL/min/1.73 sq.m. Ages 50-59 = 93 mL/min/1.73 sq.m. Ages 60-69 = 85 mL/min/1.73 sq.m. Ages 70+ = 75 mL/min/1.73 sq.m. Chronic Kidney Disease: Less than 60 mL/min/1.73 square meters End Stage Renal Disease: Less than 15 mL/min/1.73 square meters Performed By: #### C ALEXANDRE DUGGAN, ANEU #### [address] [address] #### LIPID, CMP, GFR, VIDH #### [place] [address] GFR 62 ml/min/1.73sqm Normal [facility] ([place]) Comment on above: Result Comment: GFR Population mean for , Non- Americans Ages 20-29 = 116 mL/min/1.73 sq.m. Ages 30-39 = 107 mL/min/1.73 sq.m. Ages 40-49 = 99 mL/min/1.73 sq.m. Ages 50-59 = 93 mL/min/1.73 sq.m. Ages 60-69 = 85 mL/min/1.73 sq.m. Ages 70+ = 75 mL/min/1.73 sq.m. Chronic Kidney Disease: Less than 60 mL/min/1.73 square meters End Stage Renal Disease: Less than 15 mL/min/1.73 square meters Performed By: #### C ALEXANDRE DUGGAN, ANEU #### [address] [address] #### LIPID, CMP, GFR, VIDH #### [address] [address] .NEUABSon 05-15-2019 Neutrophils (Bld) [#/Vol] 3.30 10 3/mcL Normal 2.85-6.16 [facility] ([place]) Comment on above: Performed By: #### C ALEXANDRE DUGGAN, ANEU #### [place] [address] #### LIPID, CMP, GFR, VIDH #### [address] [address] CBCon 05-15-2019 Erythrocyte distribution width (RBC) [Ratio] 14.8 % High 11.5-14.5 [facility] ([place]) Comment on above: Performed By: #### C ALEXANDRE DUGGAN, ANEU #### [place] [address] #### LIPID, CMP, GFR, VIDH #### [place] [address] Hematocrit (Bld) [Volume fraction] 39.1 % Low 42.0-52.0 [facility] ([place]) Comment on above: Performed By: #### C ALEAXNDRE DUGGAN, ANEU #### [place] [address] #### LIPID, CMP, GFR, VIDH #### [place] [address] Hemoglobin (Bld) [Mass/Vol] 13.0 G/dL Low 14.0-18.0 [facility] ([place]) Comment on above: Performed By: #### C ALEXANDRE DUGGAN, ANEU #### [place] [address] #### LIPID, CMP, GFR, VIDH #### [place] [address] MCH (RBC) [Entitic mass] 31.4 pg High 27.0-31.2 [facility] ([place]) Comment on above: Performed By: #### C ALEXANDRE DUGGAN, ANEU #### [place] [address] #### LIPID, CMP, GFR, VIDH #### [place] [address] MCHC (RBC) [Mass/Vol] 33.3 G/dL Normal 31.8-35.4 [facility] ([place]) Comment on above: Performed By: #### C ALEXANDRE DUGGAN, ANEU #### [place] [address] #### LIPID, CMP, GFR, VIDH #### [address] [address] MCV (RBC) [Entitic vol] 94.2 fL High 80.0-94.0 [facility] ([place]) Comment on above: Performed By: #### C URBAN ADLILY, ANEU #### [place] [address] #### LIPID, CMP, GFR, VIDH #### [address] [address] Platelet mean volume (Bld) [Entitic vol] 9.4 fL Normal 7.4-10.4 [facility] ([place]) Comment on above: Performed By: #### C ALEXANDRE DUGGAN, ANEU #### [place] [address] #### LIPID, CMP, GFR, VIDH #### [address] [address] Platelets (Bld) [#/Vol] 131 10 3/mcL Normal 130-400 [facility] ([place]) Comment on above: Performed By: #### C ALEXANDRE DUGGAN, ANEU #### [place] [address] #### LIPID, CMP, GFR, VIDH #### [address] [address] RBC (Bld) [#/Vol] 4.15 10 6/mcL Normal 4.04-6.13 [facility] ([place]) Comment on above: Performed By: #### C URBAN ADLILY, ANEU #### [place] [address] #### LIPID, CMP, GFR, VIDH #### [address] [address] WBC (Bld) [#/Vol] 5.40 10 3/mcL Normal 4.60-10.80 [facility] ([place]) Comment on above: Performed By: #### C BC, ADIFF, ANEU #### [address] [address] #### LIPID, CMP, GFR, VIDH #### [address] [address] CMPon 05-15-2019 Albumin [Mass/Vol] 3.7 G/dL Normal 3.4-4.8 [facility] ([place]) Comment on above: Performed By: #### C BC, ADIFF, ANEU #### [place] [address] #### LIPID, CMP, GFR, VIDH #### [address] [address] Albumin/Globulin [Mass ratio] 1.1 {ratio} Normal 1.1-2.5 [facility] ([place]) Comment on above: Performed By: #### C URBAN, ADIFF, ANEU #### [address] [address] #### LIPID, CMP, GFR, VIDH #### [address] [address] ALP [Catalytic activity/Vol] 56 U/L Normal 40-135 [facility] ([place]) Comment on above: Performed By: #### C MIGUEL DUGGANIFF, ANEU #### [place] [address] #### LIPID, CMP, GFR, VIDH #### [address] [address] ALT [Catalytic activity/Vol] 22 U/L Normal 10-35 [facility] ([place]) Comment on above: Performed By: #### C BC, ADIFF, ANEU #### [place] [address] #### LIPID, CMP, GFR, VIDH #### [address] [address] AST [Catalytic activity/Vol] 23 U/L Normal 10-40 [facility] ([place]) Comment on above: Performed By: #### C BC, ADIFF, ANEU #### [address] [address] #### LIPID, CMP, GFR, VIDH #### [address] [address] Bili Total 0.8 mg/dL Normal 0.2-1.0 [facility] ([place]) Comment on above: Performed By: #### C BC, ADIFF, ANEU #### [address] [address] #### LIPID, CMP, GFR, VIDH #### [address] [address] Calcium [Mass/Vol] 8.6 mg/dL Normal 8.4-10.2 [facility] ([place]) Comment on above: Performed By: #### C BC, ADIFF, ANEU #### [place] [address] #### LIPID, CMP, GFR, VIDH #### [address] [address] Chloride [Moles/Vol] 100 mmol/L Normal 98-107 [facility] ([place]) Comment on above: Performed By: #### C BC, ADIFF, ANEU #### [address] [address] #### LIPID, CMP, GFR, VIDH #### [address] [address] CO2 [Moles/Vol] 35 mmol/L High 23-31 [facility] ([place]) Comment on above: Performed By: #### C BC, ADIFF, ANEU #### [address] [address] #### LIPID, CMP, GFR, VIDH #### [address] [address] Creatinine [Mass/Vol] 1.34 mg/dL High 0.70-1.30 [facility] ([place]) Comment on above: Performed By: #### C BC, ADIFF, ANEU #### [address] [address] #### LIPID, CMP, GFR, VIDH #### [address] [address] Electrolyte Balance 7.0 mEq/L Normal [facility] ([place]) Comment on above: Performed By: #### C BC, ADIFF, ANEU #### [address] [address] #### LIPID, CMP, GFR, VIDH #### [address] [address] Globulin (S) [Mass/Vol] 3.3 G/dL Normal [facility] ([place]) Comment on above: Performed By: #### C BC, ADIFF, ANEU #### [address] [address] #### LIPID, CMP, GFR, VIDH #### [address] [address] Glucose [Mass/Vol] 104 mg/dL Normal 83-110 [facility] ([place]) Comment on above: Performed By: #### C BC, ADIFF, ANEU #### [address] [address] #### LIPID, CMP, GFR, VIDH #### [address] [address] Potassium [Moles/Vol] 3.5 mmol/L Normal 3.5-5.1 [facility] ([place]) Comment on above: Performed By: #### C BC, ADIFF, ANEU #### [address] [address] #### LIPID, CMP, GFR, VIDH #### [address] [address] Protein [Mass/Vol] 7.0 G/dL Normal 6.4-8.2 [facility] ([place]) Comment on above: Performed By: #### C BC, ADIFF, ANEU #### [address] [address] #### LIPID, CMP, GFR, VIDH #### [address] [address] Sodium [Moles/Vol] 142 mmol/L Normal 136-145 [facility] ([place]) Comment on above: Performed By: #### C BC, ADIFF, ANEU #### [address] [address] #### LIPID, CMP, GFR, VIDH #### [address] [address] Urea nitrogen [Mass/Vol] 33 mg/dL High 7-18 [facility] ([place]) Comment on above: Performed By: #### C BC, ADIFF, ANEU #### [address] [address] #### LIPID, CMP, GFR, VIDH #### [address] [address] Urea nitrogen/Creatinine [Mass ratio] 25 ratio Normal 7-27 [facility] ([place]) Comment on above: Performed By: #### C BC, ADIFF, ANEU #### [address] [address] #### LIPID, CMP, GFR, VIDH #### [address] [address] PBNPon 05-15-2019 Natriuretic peptide B (Bld) [Mass/Vol] 266 pg/mL Normal 0-450 [facility] ([place]) Comment on above: Result Comment: NT-p roBNP results of less than 300 pg/mL effectively rules out acute congestive heart failure with 99% negative predictive value. Performed By: #### C BC, ADIFF, ANEU #### [address] [address] #### LIPID, CMP, GFR, VIDH #### [address] [address] TROPon 05-15-2019 Troponin I.cardiac [Mass/Vol] 0.034 ng/mL Normal 0.000-0.040 [facility] ([place]) Comment on above: Result Comment: Trop onin I reference range: 0.00-0.040 ng/mL Negative and non-diagnostic. >0.040 ng/mL Consistent with cardiac damage, increased clinical risk and possibility of myocardial infarction. Serial measurements, a rise & fall in test results, clinical history, appropriate symptoms and/or ECG changes may help assess possibility of DC. *Other non-acute coronary syndrome conditions such as CHF, myocarditis, pulmonary emboli, sepsis and cardiac surgery could result in myocardial damage and increased troponin levels. Performed By: #### C BC, ADIFF, ANEU #### [place] [address], [place] [address] #### LIPID, CMP, GFR, VIDH #### [address] [address] CWDon 05-11-2019 CWD . MICRO - Microbiology PROCEDURE: Culture Wound Aerobic with Gram Stain [*1] SOURCE: Exudate BODY SITE: Leg L COLLECTED DATE/TIME: 05/08/2019 10:15 EST RECEIVED DATE/TIME: 05/08/2019 20:20 EST START DATE/TIME: 05/08/2019 20:21 EST FREE TEXT SOURCE: FINAL REPORTS Final Report [] Verified Date/Time/Personnel: 05/11/2019 11:59 EST Light Enterococcus faecalis Light Pseudomonas aeruginosa Light normal skin murray present. Sensitivity testing not indicated. PRELIMINARY REPORTS Preliminary Report [] Verified Date/Time/Personnel: 05/10/2019 10:54 EST Light Presumptive Group D Enterococcus Final identification and DORA to follow. Light Non Fermentering Gram Negative Rods Final identification and DORA to follow. Preliminary Report [] Verified Date/Time/Personnel: 05/09/2019 09:17 EST Culture results pending. STAINS GS [] Verified Date/Time/Personnel: 05/08/2019 23:03 EST 1+ Red Blood Cells 2+ Gram Negative Rods 1+ Gram Positive Rods SUSCEPTIBILITY RESULTS Enterococcus faecalis Antibiotic DORA Dilutn DORA Interp Ampicillin <=2 Susceptible Gentamicin <=500 Susceptible synergy Penicillin 2 Susceptible Vancomycin 1 Susceptible Pseudomonas aeruginosa Antibiotic DORA Dilutn DORA Interp Ceftazidime <=1 Susceptible Gentamicin <=4 Susceptible Levofloxacin <=2 Susceptible Meropenem <=1 Susceptible Piperacillin/ <=16 Susceptible Tazobactam Tobramycin <=4 Susceptible Performing Locations *1: This test was performed at: [facility], [address] [place] [address], [id number] , [facility] Normal [facility] ([place]) Comment on above: Performed By: #### C ALEXANDRE DUGGAN, ANEU #### [address] [address] #### LIPID, CMP, GFR, VIDH #### [address] [address] .Auto Diffon 02-18-2019 Ammonia (P) [Mass/Vol] 0.90 10 3/mcL Normal 0.15-1.00 [facility] ([place]) Comment on above: Performed By: #### C ALEXANDRE DUGGAN, ANEU #### [place] [address] #### LIPID, CMP, GFR, VIDH #### [address] [address] Basophils (Bld) [#/Vol] 0.00 10 3/mcL Normal 0.00-0.19 [facility] ([place]) Comment on above: Performed By: #### C ALEXANDRE DUGGAN, ANEU #### [place] [address] #### LIPID, CMP, GFR, VIDH #### [address] [address] Basophils/100 WBC (Bld) 0.5 % Normal 0.0-2.5 [facility] ([place]) Comment on above: Performed By: #### C BC ADIFF, ANEU #### [place] [address] #### LIPID, CMP, GFR, VIDH #### [address] [address] Eosinophils (Bld) [#/Vol] 0.20 10 3/mcL Normal 0.00-0.40 [facility] ([place]) Comment on above: Performed By: #### C ALEXANDRE DUGGAN, ANEU #### [place] [address] #### LIPID, CMP, GFR, VIDH #### [address] [address] Eosinophils/100 WBC (Bld) 2.1 % Normal 0.0-7.0 [facility] ([place]) Comment on above: Performed By: #### C BC, ADIFF, ANEU #### [address] [address] #### LIPID, CMP, GFR, VIDH #### [address] [address] Lymphocytes (Bld) [#/Vol] 2.60 10 3/mcL Normal 0.77-3.85 [facility] ([place]) Comment on above: Performed By: #### C BC, ADIFF, ANEU #### [place] [address] #### LIPID, CMP, GFR, VIDH #### [address] [address] Lymphocytes/100 WBC (Bld) 34.8 % Normal 10.0-50.0 [facility] ([place]) Comment on above: Performed By: #### C BC, ADIFF, ANEU #### [place] [address] #### LIPID, CMP, GFR, VIDH #### [address] [address] Monocytes/100 WBC (Bld) 11.3 % Normal 1.7-13.0 [facility] ([place]) Comment on above: Performed By: #### C BC, ADIFF, ANEU #### [place] [address] #### LIPID, CMP, GFR, VIDH #### [address] [address] Neutrophils/100 WBC (Bld) 51.3 % Normal 37.0-80.0 [facility] ([place]) Comment on above: Performed By: #### C BC, ADIFF, ANEU #### [place] [address] #### LIPID, CMP, GFR, VIDH #### [address] [address] .GFRon 02-18-2019 GFR 68 ml/min/1.73sqm Normal [facility] ([place]) Comment on above: Result Comment: GFR Population mean for , Non- Americans Ages 20-29 = 116 mL/min/1.73 sq.m. Ages 30-39 = 107 mL/min/1.73 sq.m. Ages 40-49 = 99 mL/min/1.73 sq.m. Ages 50-59 = 93 mL/min/1.73 sq.m. Ages 60-69 = 85 mL/min/1.73 sq.m. Ages 70+ = 75 mL/min/1.73 sq.m. Chronic Kidney Disease: Less than 60 mL/min/1.73 square meters End Stage Renal Disease: Less than 15 mL/min/1.73 square meters Performed By: #### C ALEXANDRE DUGGAN, ANEU #### Jong [address] [address] #### LIPID, CMP, GFR, VIDH #### [address] [address] GFR Non- 56 ml/min/1.73sqm Normal [facility] ([place]) Comment on above: Result Comment: GFR Population mean for , Non- Americans Ages 20-29 = 116 mL/min/1.73 sq.m. Ages 30-39 = 107 mL/min/1.73 sq.m. Ages 40-49 = 99 mL/min/1.73 sq.m. Ages 50-59 = 93 mL/min/1.73 sq.m. Ages 60-69 = 85 mL/min/1.73 sq.m. Ages 70+ = 75 mL/min/1.73 sq.m. Chronic Kidney Disease: Less than 60 mL/min/1.73 square meters End Stage Renal Disease: Less than 15 mL/min/1.73 square meters Performed By: #### C BC, ADLILY, ANEU #### [address] [address] #### LIPID, CMP, GFR, VIDH #### [address] [address] .NEUABSon 02-18-2019 Neutrophils (Bld) [#/Vol] 3.90 10 3/mcL Normal 2.85-6.16 [facility] ([place]) Comment on above: Performed By: #### C ALEXANDRE DUGGAN, ANEU #### [address] [address] #### LIPID, CMP, GFR, VIDH #### [place] [address] A1Con 02-18-2019 HbA1c (Bld) [Mass fraction] 6.0 % Normal 4.5-6.2 [facility] ([place]) Comment on above: Performed By: #### C ALEXANDRE DUGGAN, ANEU #### [place] [address] #### LIPID, CMP, GFR, VIDH #### [place] [address] CBCon 02-18-2019 Erythrocyte distribution width (RBC) [Ratio] 14.3 % Normal 11.5-14.5 [facility] ([place]) Comment on above: Performed By: #### ALEXANDRE AMADOR, ANEU #### [place] [address] #### LIPID, CMP, GFR, A1C, VIDH #### [place] [address] Hematocrit (Bld) [Volume fraction] 40.5 % Low 42.0-52.0 [facility] ([place]) Comment on above: Performed By: #### C BCALEXANDRE, ANEU #### [place] [address] #### LIPID, CMP, GFR, A1C, VIDH #### [place] [address] Hemoglobin (Bld) [Mass/Vol] 13.4 G/dL Low 14.0-18.0 [facility] ([place]) Comment on above: Performed By: #### C ALEXANDRE DUGGAN, ANEU #### [place] [address] #### LIPID, CMP, GFR, A1C, VIDH #### [place] [address] MCH (RBC) [Entitic mass] 31.5 pg High 27.0-31.2 [facility] ([place]) Comment on above: Performed By: #### C ALEXANDRE DUGGAN, ANEU #### [place] [address] #### LIPID, CMP, GFR, A1C, VIDH #### [place] [address] MCHC (RBC) [Mass/Vol] 33.2 G/dL Normal 31.8-35.4 [facility] ([place]) Comment on above: Performed By: #### C ALEXANDRE DUGGAN, ANEU #### [place] [address] #### LIPID, CMP, GFR, A1C, VIDH #### [place] [address] MCV (RBC) [Entitic vol] 94.9 fL High 80.0-94.0 [facility] ([place]) Comment on above: Performed By: #### ALEXANDRE AMADOR, ANEU #### [place] [address] #### LIPID, CMP, GFR, A1C, VIDH #### [place] [address] Platelet mean volume (Bld) [Entitic vol] 8.4 fL Normal 7.4-10.4 [facility] ([place]) Comment on above: Performed By: #### C ALEXANDRE DUGGAN, ANEU #### [place] [address] #### LIPID, CMP, GFR, A1C, VIDH #### [place] [id number] Platelets (Bld) [#/Vol] 126 10 3/mcL Low 130-400 [facility] ([place]) Comment on above: Performed By: #### C BC, ADIFF, ANEU #### [address] [address] #### LIPID, CMP, GFR, A1C, VIDH #### [address] [address] RBC (Bld) [#/Vol] 4.26 10 6/mcL Normal 4.04-6.13 [facility] ([place]) Comment on above: Performed By: #### C BC, ADIFF, ANEU #### [place] [address] #### LIPID, CMP, GFR, A1C, VIDH #### [place] [id number] WBC (Bld) [#/Vol] 7.60 10 3/mcL Normal 4.60-10.80 [facility] ([place]) Comment on above: Performed By: #### C MIGUEL DUGGANIFF, ANEU #### [place] [address] #### LIPID, CMP, GFR, A1C, VIDH #### [place] [address] CMPon 02-18-2019 Albumin [Mass/Vol] 4.1 G/dL Normal 3.4-4.8 [facility] ([place]) Comment on above: Performed By: #### C MIGUEL DUGGANIFF, ANEU #### [place] [address] #### LIPID, CMP, GFR, VIDH #### [place] [address] Albumin/Globulin [Mass ratio] 1.2 {ratio} Normal 1.1-2.5 [facility] ([place]) Comment on above: Performed By: #### C BC, ADIFF, ANEU #### [place] [address] #### LIPID, CMP, GFR, VIDH #### [place] [id number] ALP [Catalytic activity/Vol] 72 U/L Normal 40-135 [facility] ([place]) Comment on above: Performed By: #### C BC, ADIFF, ANEU #### [address] [address] #### LIPID, CMP, GFR, VIDH #### [address] [address] ALT [Catalytic activity/Vol] 26 U/L Normal 10-35 [facility] ([place]) Comment on above: Performed By: #### C BC, ADIFF, ANEU #### [address] [address] #### LIPID, CMP, GFR, VIDH #### [address] [address] AST [Catalytic activity/Vol] 25 U/L Normal 10-40 [facility] ([place]) Comment on above: Performed By: #### C BC, ADIFF, ANEU #### [address] [address] #### LIPID, CMP, GFR, VIDH #### [address] [address] Bili Total 0.8 mg/dL Normal 0.2-1.0 [facility] ([place]) Comment on above: Performed By: #### C BC, ADIFF, ANEU #### [place] [address] #### LIPID, CMP, GFR, VIDH #### [address] [address] Calcium [Mass/Vol] 9.6 mg/dL Normal 8.4-10.2 [facility] ([place]) Comment on above: Performed By: #### C BC, ADIFF, ANEU #### [address] [address] #### LIPID, CMP, GFR, VIDH #### [address] [address] Chloride [Moles/Vol] 105 mmol/L Normal 98-107 [facility] ([place]) Comment on above: Performed By: #### C BC, ADIFF, ANEU #### [address] [address] #### LIPID, CMP, GFR, VIDH #### [address] [address] CO2 [Moles/Vol] 31 mmol/L Normal 23-31 [facility] ([place]) Comment on above: Performed By: #### C BC, ADIFF, ANEU #### [place] [address] #### LIPID, CMP, GFR, VIDH #### [address] [address] Creatinine [Mass/Vol] 1.25 mg/dL Normal 0.70-1.30 [facility] ([place]) Comment on above: Performed By: #### C BC, ADIFF, ANEU #### [place] [address] #### LIPID, CMP, GFR, VIDH #### [place] [address] Electrolyte Balance 8.0 mEq/L Normal [facility] ([place]) Comment on above: Performed By: #### C BC, ADIFF, ANEU #### [place] [address] #### LIPID, CMP, GFR, VIDH #### [address] [address] Globulin (S) [Mass/Vol] 3.3 G/dL Normal [facility] ([place]) Comment on above: Performed By: #### C BC, ADIFF, ANEU #### [place] [address] #### LIPID, CMP, GFR, VIDH #### [address] [address] Glucose [Mass/Vol] 111 mg/dL High 83-110 [facility] ([place]) Comment on above: Performed By: #### C BC, ADIFF, ANEU #### [place] [address] #### LIPID, CMP, GFR, VIDH #### [address] [address] Potassium [Moles/Vol] 3.9 mmol/L Normal 3.5-5.1 [facility] ([place]) Comment on above: Performed By: #### C ALEXANDRE DUGGAN, ANEU #### [address] [address] #### LIPID, CMP, GFR, VIDH #### [address] [address] Protein [Mass/Vol] 7.4 G/dL Normal 6.4-8.2 [facility] ([place]) Comment on above: Performed By: #### C ALEXANDRE DUGGAN, ANEU #### [address] [address] #### LIPID, CMP, GFR, VIDH #### [address] [address] Sodium [Moles/Vol] 144 mmol/L Normal 136-145 [facility] ([place]) Comment on above: Performed By: #### C ALEXANDRE DUGGAN, ANEU #### [address] [address] #### LIPID, CMP, GFR, VIDH #### [address] [address] Urea nitrogen [Mass/Vol] 19 mg/dL High 7-18 [facility] ([place]) Comment on above: Performed By: #### C ALEXANDRE DUGGAN, ANEU #### [address] [address] #### LIPID, CMP, GFR, VIDH #### [address] [address] Urea nitrogen/Creatinine [Mass ratio] 15 ratio Normal 7-27 [facility] ([place]) Comment on above: Performed By: #### C ALEXANDRE DUGGAN, ANEU #### [address] [address] #### LIPID, CMP, GFR, VIDH #### [address] [address] LIPIDon 02-18-2019 Cholesterol [Mass/Vol] 90 mg/dL Normal 0-200 [facility] ([place]) Comment on above: Result Comment: Chol esterol Reference Interval: Less than 200 Desirable 200-239 Borderline high risk 240 and above High risk Performed By: #### C BC, ADIFF, ANEU #### [address] [address] #### LIPID, CMP, GFR, VIDH #### [address] [address] Cholesterol in HDL [Mass/Vol] 28 mg/dL Low 40-60 [facility] ([place]) Comment on above: Performed By: #### C BC, ADIFF, ANEU #### [address] [address] #### LIPID, CMP, GFR, VIDH #### [address] [address] Cholesterol in LDL [Mass/Vol] 44 mg/dL Normal 0-130 [facility] ([place]) Comment on above: Performed By: #### C BC, ADIFF, ANEU #### [address] [address] #### LIPID, CMP, GFR, VIDH #### [address] [address] Triglyceride [Mass/Vol] 90 mg/dL Normal 0-150 [facility] ([place]) Comment on above: Result Comment: Trig lyceride Reference Interval: Less than 150 Normal 150-199 Borderline high risk 200-499 High risk 500 or higher Very high risk Performed By: #### C BC, ADIFF, ANEU #### [address] [address] #### LIPID, CMP, GFR, VIDH #### [address] [address] VIDHon 02-18-2019 Vit. D 25-Hydroxy 32 ng/mL Normal [facility] ([place]) Comment on above: Result Comment: Inte rpretive Values Based on Total 25(OH)D: Severe Deficiency <20 ng/mL Mild to Moderate Deficiency 20-30 ng/mL Optimum Levels 30-100 ng/mL Toxicity Possible >100 ng/mL Performed By: #### C ALEXANDRE DUGGAN ANEU #### [address] [address] #### LIPID, CMP, GFR, VIDH #### [place] [address] RENINDon 08-15-2018 Direct Renin 2.4 pg/mL Normal [facility] ([place]) Comment on above: Result Comment: Soco n Reference Range, 41-99 years: Upright: 3.6-81.6 pg/mL Supine: 2.5-45.1 pg/mL Performed By: [facility] [employer] [address] [place] [address] Box Stacker: Taty Phillips#: [id number] Phone#: Performed By: #### P TH #### [place] [address] #### RENIND #### [place] [address] PTHon 08-14-2018 PTH, Intact 30.4 pg/mL Normal 18.5-88.0 [facility] ([place]) Comment on above: Performed By: #### P TH #### [place] [address] #### RENIND #### [address] [address] VIDHon 08-14-2018 Vit. D 25-Hydroxy 27 ng/mL Normal [facility] ([place]) Comment on above: Result Comment: Inte rpretive Values Based on Total 25(OH)D: Severe Deficiency <20 ng/mL Mild to Moderate Deficiency 20-30 ng/mL Optimum Levels 30-100 ng/mL Toxicity Possible >100 ng/mL Performed By: #### C ALEXANDRE DUGGAN ANEU #### [place] [address] #### LIPID, CMP, GFR, VIDH #### [place] [address] .Auto Diffon 08-13-2018 Ammonia (P) [Mass/Vol] 0.60 10 3/mcL Normal 0.15-1.00 [facility] ([place]) Comment on above: Performed By: #### C URBAN, MIGUELIFF, ANEU #### [place] [address] #### LIPID, CMP, GFR, VIDH #### [address] [address] Basophils (Bld) [#/Vol] 0.00 10 3/mcL Normal 0.00-0.19 [facility] ([place]) Comment on above: Performed By: #### C URBAN, ADIFF, ANEU #### [place] [address] #### LIPID, CMP, GFR, VIDH #### [address] [address] Basophils/100 WBC (Bld) 0.4 % Normal 0.0-2.5 [facility] ([place]) Comment on above: Performed By: #### C URBAN, ADIFF, ANEU #### [place] [address] #### LIPID, CMP, GFR, VIDH #### [address] [address] Eosinophils (Bld) [#/Vol] 0.10 10 3/mcL Normal 0.00-0.40 [facility] ([place]) Comment on above: Performed By: #### C URBAN, ALEXANDRE, ANEU #### [place] [address] #### LIPID, CMP, GFR, VIDH #### [address] [address] Eosinophils/100 WBC (Bld) 1.2 % Normal 0.0-7.0 [facility] ([place]) Comment on above: Performed By: #### C BC, ADIFF, ANEU #### [place] [address] #### LIPID, CMP, GFR, VIDH #### [address] [address] Lymphocytes (Bld) [#/Vol] 1.80 10 3/mcL Normal 0.77-3.85 [facility] ([place]) Comment on above: Performed By: #### C BC ADIFF, ANEU #### [address] [address] #### LIPID, CMP, GFR, VIDH #### [address] [address] Lymphocytes/100 WBC (Bld) 29.6 % Normal 10.0-50.0 [facility] ([place]) Comment on above: Performed By: #### C BC, ADIFF, ANEU #### [address] [address] #### LIPID, CMP, GFR, VIDH #### [address] [address] Monocytes/100 WBC (Bld) 9.4 % Normal 1.7-13.0 [facility] ([place]) Comment on above: Performed By: #### C BCMIGUELIFF, ANEU #### [address] [address] #### LIPID, CMP, GFR, VIDH #### [address] [address] Neutrophils/100 WBC (Bld) 59.4 % Normal 37.0-80.0 [facility] ([place]) Comment on above: Performed By: #### ALEXANDRE AMADOR, ANEU #### [place] [address] #### LIPID, CMP, GFR, VIDH #### [address] [address] .GFRon 08-13-2018 GFR Non- 67 ml/min/1.73sqm Normal [facility] ([place]) Comment on above: Result Comment: GFR Population mean for , Non- Americans Ages 20-29 = 116 mL/min/1.73 sq.m. Ages 30-39 = 107 mL/min/1.73 sq.m. Ages 40-49 = 99 mL/min/1.73 sq.m. Ages 50-59 = 93 mL/min/1.73 sq.m. Ages 60-69 = 85 mL/min/1.73 sq.m. Ages 70+ = 75 mL/min/1.73 sq.m. Chronic Kidney Disease: Less than 60 mL/min/1.73 square meters End Stage Renal Disease: Less than 15 mL/min/1.73 square meters Performed By: #### C BC, ADIFF, ANEU #### [address] [address] #### LIPID, CMP, GFR, VIDH #### [address] [address] GFR 81 ml/min/1.73sqm Normal [facility] ([place]) Comment on above: Result Comment: GFR Population mean for , Non- Americans Ages 20-29 = 116 mL/min/1.73 sq.m. Ages 30-39 = 107 mL/min/1.73 sq.m. Ages 40-49 = 99 mL/min/1.73 sq.m. Ages 50-59 = 93 mL/min/1.73 sq.m. Ages 60-69 = 85 mL/min/1.73 sq.m. Ages 70+ = 75 mL/min/1.73 sq.m. Chronic Kidney Disease: Less than 60 mL/min/1.73 square meters End Stage Renal Disease: Less than 15 mL/min/1.73 square meters Performed By: #### C BC, ADIFF, ANEU #### [address] [address] #### LIPID, CMP, GFR, VIDH #### [address] [address] .NEUABSon 08-13-2018 Neutrophils (Bld) [#/Vol] 3.60 10 3/mcL Normal 2.85-6.16 [facility] ([place]) Comment on above: Performed By: #### C BC, ADIFF, ANEU #### [address] [address] #### LIPID, CMP, GFR, VIDH #### [place] [address] CBCon 08-13-2018 Erythrocyte distribution width (RBC) [Ratio] 14.4 % Normal 11.5-14.5 [facility] ([place]) Comment on above: Order Comment: FASTI NG Performed By: #### C BC, ADIFF, ANEU #### [address] [address] #### LIPID, CMP, GFR, VIDH #### [address] [address] Hematocrit (Bld) [Volume fraction] 38.5 % Low 42.0-52.0 [facility] ([place]) Comment on above: Order Comment: FASTI NG Performed By: #### C BC, ADIFF, ANEU #### [place] [address] #### LIPID, CMP, GFR, VIDH #### [place] [address] Hemoglobin (Bld) [Mass/Vol] 13.0 G/dL Low 14.0-18.0 [facility] ([place]) Comment on above: Order Comment: FASTI NG Performed By: #### C BC, ADIFF, ANEU #### [place] [address] #### LIPID, CMP, GFR, VIDH #### [address] [address] MCH (RBC) [Entitic mass] 31.6 pg High 27.0-31.2 [facility] ([place]) Comment on above: Order Comment: FASTI NG Performed By: #### C BC, ADIFF, ANEU #### [address] [address] #### LIPID, CMP, GFR, VIDH #### [address] [address] MCHC (RBC) [Mass/Vol] 33.8 G/dL Normal 31.8-35.4 [facility] ([place]) Comment on above: Order Comment: FASTI NG Performed By: #### C BC, ADIFF, ANEU #### [place] [address] #### LIPID, CMP, GFR, VIDH #### [address] [address] MCV (RBC) [Entitic vol] 93.3 fL Normal 80.0-94.0 [facility] ([place]) Comment on above: Order Comment: FASTI NG Performed By: #### C BC, ADIFF, ANEU #### [place] [address] #### LIPID, CMP, GFR, VIDH #### [address] [address] Platelet mean volume (Bld) [Entitic vol] 8.5 fL Normal 7.4-10.4 [facility] ([place]) Comment on above: Order Comment: FASTI NG Performed By: #### C BC, ADIFF, ANEU #### [place] [address] #### LIPID, CMP, GFR, VIDH #### [address] [address] Platelets (Bld) [#/Vol] 128 10 3/mcL Low 130-400 [facility] ([place]) Comment on above: Order Comment: FASTI NG Performed By: #### C BC, ADIFF, ANEU #### [place] [address] #### LIPID, CMP, GFR, VIDH #### [address] [address] RBC (Bld) [#/Vol] 4.12 10 6/mcL Normal 4.04-6.13 [facility] ([place]) Comment on above: Order Comment: FASTI NG Performed By: #### C BC, ADIFF, ANEU #### [place] [address] #### LIPID, CMP, GFR, VIDH #### [address] [address] WBC (Bld) [#/Vol] 6.10 10 3/mcL Normal 4.60-10.80 [facility] ([place]) Comment on above: Order Comment: FASTI NG Performed By: #### C BC, ADIFF, ANEU #### [place] [address] #### LIPID, CMP, GFR, VIDH #### [address] [address] CMPon 08-13-2018 Albumin [Mass/Vol] 4.0 G/dL Normal 3.4-4.8 [facility] ([place]) Comment on above: Performed By: #### C BC, ADIFF, ANEU #### [place] [address] #### LIPID, CMP, GFR, VIDH #### [address] [address] Albumin/Globulin [Mass ratio] 1.2 {ratio} Normal 1.1-2.5 [facility] ([place]) Comment on above: Performed By: #### C BC, ADIFF, ANEU #### [place] [address] #### LIPID, CMP, GFR, VIDH #### [address] [address] ALP [Catalytic activity/Vol] 73 U/L Normal 40-135 [facility] ([place]) Comment on above: Performed By: #### C BC, ADIFF, ANEU #### [place] [address] #### LIPID, CMP, GFR, VIDH #### [address] [address] ALT [Catalytic activity/Vol] 24 U/L Normal 10-35 [facility] ([place]) Comment on above: Performed By: #### C BC, ADIFF, ANEU #### [place] [address] #### LIPID, CMP, GFR, VIDH #### [address] [address] AST [Catalytic activity/Vol] 23 U/L Normal 10-40 [facility] ([place]) Comment on above: Performed By: #### C BC, ADIFF, ANEU #### [address] [address] #### LIPID, CMP, GFR, VIDH #### [address] [address] Bili Total 0.7 mg/dL Normal 0.2-1.0 [facility] ([place]) Comment on above: Performed By: #### C BC, ADIFF, ANEU #### [place] [address] #### LIPID, CMP, GFR, VIDH #### [address] [address] Calcium [Mass/Vol] 9.3 mg/dL Normal 8.4-10.2 [facility] ([place] Comment on above: Performed By: #### C BC, ADIFF, ANEU #### [place] [address] #### LIPID, CMP, GFR, VIDH #### [address] [address] Chloride [Moles/Vol] 106 mmol/L Normal 98-107 [facility] ([place]) Comment on above: Performed By: #### C BC, ADIFF, ANEU #### [address] [address] #### LIPID, CMP, GFR, VIDH #### [address] [address] CO2 [Moles/Vol] 30 mmol/L Normal 23-31 [facility] ([place]) Comment on above: Performed By: #### C BC, ADIFF, ANEU #### [address] [address] #### LIPID, CMP, GFR, VIDH #### [address] [address] Creatinine [Mass/Vol] 1.07 mg/dL Normal 0.70-1.30 [facility] ([place]) Comment on above: Performed By: #### C BC, ADIFF, ANEU #### [address] [address] #### LIPID, CMP, GFR, VIDH #### [address] [address] Electrolyte Balance 8.0 mEq/L Normal [facility] ([place]) Comment on above: Performed By: #### C BC, ADIFF, ANEU #### [address] [address] #### LIPID, CMP, GFR, VIDH #### [address] [address] Globulin (S) [Mass/Vol] 3.4 G/dL Normal [facility] ([place]) Comment on above: Performed By: #### C BC, ADIFF, ANEU #### [address] [address] #### LIPID, CMP, GFR, VIDH #### [address] [address] Glucose [Mass/Vol] 95 mg/dL Normal 83-110 [facility] ([place]) Comment on above: Performed By: #### C BC, ADIFF, ANEU #### [address] [address] #### LIPID, CMP, GFR, VIDH #### [address] [address] Potassium [Moles/Vol] 4.1 mmol/L Normal 3.5-5.1 [facility] ([place]) Comment on above: Performed By: #### C BC, ADIFF, ANEU #### [address] [address] #### LIPID, CMP, GFR, VIDH #### [address] [address] Protein [Mass/Vol] 7.4 G/dL Normal 6.4-8.2 [facility] ([place]) Comment on above: Performed By: #### C BC, ADIFF, ANEU #### [address] [address] #### LIPID, CMP, GFR, VIDH #### [address] [address] Sodium [Moles/Vol] 144 mmol/L Normal 136-145 [facility] ([place]) Comment on above: Performed By: #### C BC ADIFF, ANEU #### [address] [address] #### LIPID, CMP, GFR, VIDH #### [address] [address] Urea nitrogen [Mass/Vol] 16 mg/dL Normal 7-18 [facility] ([place]) Comment on above: Performed By: #### C BC, ADIFF, ANEU #### [address] [address] #### LIPID, CMP, GFR, VIDH #### [address] [address] Urea nitrogen/Creatinine [Mass ratio] 15 ratio Normal 7-27 [facility] ([place]) Comment on above: Performed By: #### C BCMIGUELIFF, ANEU #### [address] [address] #### LIPID, CMP, GFR, VIDH #### [address] [address] LIPIDon 08-13-2018 Cholesterol [Mass/Vol] 96 mg/dL Normal 0-200 [facility] ([place]) Comment on above: Result Comment: Chol esterol Reference Interval: Less than 200 Desirable 200-239 Borderline high risk 240 and above High risk Performed By: #### C BC ADIFF, ANEU #### [address] [address] #### LIPID, CMP, GFR, VIDH #### [address] [address] Cholesterol in HDL [Mass/Vol] 27 mg/dL Low 40-60 [facility] ([place]) Comment on above: Performed By: #### C BC, ADIFF, ANEU #### [address] [address] #### LIPID, CMP, GFR, VIDH #### [address] [address] Cholesterol in LDL [Mass/Vol] 46 mg/dL Normal 0-130 [facility] ([place]) Comment on above: Performed By: #### C ALEXANDRE DUGGAN, ANEU #### [facility] [address], [place] [address] #### LIPID, CMP, GFR, VIDH #### [facility] [address] [place] [id number] Triglyceride [Mass/Vol] 116 mg/dL Normal 0-150 [facility] ([place]) Comment on above: Result Comment: Trig lyceride Reference Interval: Less than 150 Normal 150-199 Borderline high risk 200-499 High risk 500 or higher Very high risk Performed By: #### C ALEXANDRE DUGGAN ANEU #### [facility] [address], [place] [address] #### LIPID, CMP, GFR, VIDH #### [facility] [address] [place] [id number] Summary Purpose Family History No Family History Records Found Advance Directives No Advanced Directives Records Found Additional Source Comments (unrecognized sect ion and content) No Status Records Found INFORMATION SOURCE (unrecogn ized section and content) DATE CREATED AUTHOR 06/21/2019 [facility] ([place]) FOR RECORDS PERTAINING TO PATIENTS WHO ARE [...] BE BASED ON THE PRIMARY CLINICAL RECORDS. [facility] [employer]. provides no warranty or guarantee of the accuracy or completeness of information in this document.
[2024-01-14 09:34] LABS: Hematocrit 37.9 % (40-54); Hemoglobin 12.6 g/dL (13.0-16.5); Mean Corp Hgb Conc 33.2 g/dL (32-36); Mean Corpuscular Volume 96.2 fL (80-94); Mean Platelet Vol. 10.6 fl (6.2-12.0); Platelet Count 137 K/mm3 (150-450); RBC Distribution Width CV 14.2 % (11.6-14.6); RBC Distribution Width SD 50.1 fl (35.1-43.9); Red Blood Count 3.94 M/mm3 (4.6-6.2)
[2024-01-14 10:04] LABS: PTHIN 58.5 pg/mL (18.4-80.1)
[2024-01-14 10:08] LABS: Vitamin D,25 Hydroxy 47.1 ng/mL
[2024-01-14 11:22] LABS: ALB/GLOB Ratio 0.9 RATIO (0.9-2.4); AST(SGOT) 23 U/L (15-37); Alanine Aminotransfer ALT/SGPT 20 U/L (16-61); Albumin, Serum 3.5 g/dL (3.2-5.0); Alkaline Phosphatase 89 U/L (45-117); Anion Gap 9 (5-15); BUN 22 mg/dL (7-18); BUN/Creat Ratio 15.1 RATIO (10-20); Calcium,Total 9.5 mg/dL (8.5-10.1); Chloride 108 mmol/L (98-107); Cholesterol 92 mg/dL (200); Creatinine, Serum 1.46 mg/dL (0.70-1.30); EST Glomerular Filtration Rate 49 mL/min (>60); Est Glom Filt Rate - Afr Amer 59 mL/min (>60); Globulin 4.1 g/dL (2.2-4.2); Glucose 109 mg/dL (74-106); High Density Lipoprotein 28 mg/dL; PSA,Total - Annual Screen 0.68 ng/mL (0.00-4.00); Protein, Total 7.6 g/dL (6.4-8.2); Sodium Level 140 mmol/L (136-145); T4 Free Direct 1.07 ng/dL (0.76-1.46); Triglycerides 118 mg/dL; Very Low Density Lipoprotein 24 mg/dL (5-40)
[2024-01-14 11:47] LABS: Hemoglobin A1c 6.2 % (3.8-5.6)
== END | disposition home or self-care (01) ==
LOC: LAB 08:57
PROVIDERS: PCP Nurse Practitioner Family; Referring Provider Nurse Practitioner Family; Visit Provider Nurse Practitioner Family
DX: Z12.5 Encounter for screening for malignant neoplasm of prostate (principal); N18.30 Chronic kidney disease, stage 3 unspecified; E55.9 Vitamin D deficiency, unspecified; E03.9 Hypothyroidism, unspecified; I12.9 Hypertensive chronic kidney disease with stage 1 through stage 4 chronic kidney disease, or unspecified chronic kidney disease; E78.5 Hyperlipidemia, unspecified; R73.01 Impaired fasting glucose
CPT/HCPCS: 36415; 80053; 80061; 82306; 83036; 83970; 84153; 84439; 84443; 85027; G0103

== ENCOUNTER → 2024-01-15 | Outpatient (CLI) | payer MEDICARE, SELFPAY ==
--- OUTSIDE RECORDS SUMMARY | 2024-01-15 11:57 | XMS RPT_ITS | CCD ---
Author Organization [facility] [employer] [facility] Results Test Name Value Interpretation Reference Range Facil ity .Auto Diffon 06-21-2019 Ammonia (P) [Mass/Vol] 0.80 10 3/mcL Normal 0.15-1.00 [facility] ([place]) Comment on above: Performed By: #### C ALEXANDRE DUGGAN, ANEU #### [place] [address] #### LIPID, CMP, GFR, VIDH #### [address] [address] Basophils (Bld) [#/Vol] 0.00 10 3/mcL Normal 0.00-0.19 [facility] ([place] Comment on above: Performed By: #### C BCMIGUELIFF, ANEU #### [address] [address] #### LIPID, CMP, GFR, VIDH #### [address] [address] Basophils/100 WBC (Bld) 0.4 % Normal 0.0-2.5 [facility] ([place] Comment on above: Performed By: #### C BCALEXANDRE, ANEU #### [place] [address] #### LIPID, CMP, GFR, VIDH #### [address] [address] Eosinophils (Bld) [#/Vol] 0.10 10 3/mcL Normal 0.00-0.40 [facility] ([place] Comment on above: Performed By: #### C BC ADIFF, ANEU #### [place] [address] #### LIPID, CMP, GFR, VIDH #### [address] [address] Eosinophils/100 WBC (Bld) 1.6 % Normal 0.0-7.0 [facility] ([place]) Comment on above: Performed By: #### C BC, ADIFF, ANEU #### [address] [address] #### LIPID, CMP, GFR, VIDH #### [address] [address] Lymphocytes (Bld) [#/Vol] 2.40 10 3/mcL Normal 0.77-3.85 [facility] ([place]) Comment on above: Performed By: #### C BC, ADIFF, ANEU #### [address] [address] #### LIPID, CMP, GFR, VIDH #### [address] [address] Lymphocytes/100 WBC (Bld) 35.1 % Normal 10.0-50.0 [facility] ([place]) Comment on above: Performed By: #### C BC, ADIFF, ANEU #### [address] [address] #### LIPID, CMP, GFR, VIDH #### [address] [address] Monocytes/100 WBC (Bld) 12.1 % Normal 1.7-13.0 [facility] ([place]) Comment on above: Performed By: #### C BC, ADIFF, ANEU #### [address] [address] #### LIPID, CMP, GFR, VIDH #### [address] [address] Neutrophils/100 WBC (Bld) 50.8 % Normal 37.0-80.0 [facility] ([place]) Comment on above: Performed By: #### C BC, ADIFF, ANEU #### [address] [address] #### LIPID, CMP, GFR, VIDH #### [address] [address] .GFRon 06-21-2019 GFR 65 ml/min/1.73sqm Normal [facility] ([place] Comment on above: Result Comment: GFR Population [...] By: #### C BC, ALEXANDRE, ANEU #### [address] [address] #### LIPID, CMP, GFR, VIDH #### [address] [address] GFR Non- 54 ml/min/1.73sqm Normal [facility] ([place] Comment on above: Result Comment: GFR Population [...] By: #### C BC, ADIFF, ANEU #### [address] [address] #### LIPID, CMP, GFR, VIDH #### [address] [address] .NEUABSon 06-21-2019 Neutrophils (Bld) [#/Vol] 3.50 10 3/mcL Normal 2.85-6.16 [facility] ([place] Comment on above: Performed By: #### C MIGUEL DUGGANIFF, ANEU #### [place] [address] #### LIPID, CMP, GFR, VIDH #### [place] [address] A1Con 06-21-2019 HbA1c (Bld) [Mass fraction] 6.3 % Normal 4.3-6.4 [facility] ([place]) Comment on above: Performed By: #### C ALEXANDRE DUGGAN, ANEU #### [place] [address] #### LIPID, CMP, GFR, VIDH #### [place] [address] CBCon 06-21-2019 Erythrocyte distribution width (RBC) [Ratio] 14.5 % Normal 11.5-14.5 [facility] ([place] Comment on above: Performed By: #### C ALEXANDRE DUGGAN, ANEU #### [place] [address] #### LIPID, CMP, GFR, VIDH #### [place] [address] Hematocrit (Bld) [Volume fraction] 39.3 % Low 42.0-52.0 [facility] ([place] Comment on above: Performed By: #### C BC ADIFF, ANEU #### [place] [address] #### LIPID, CMP, GFR, VIDH #### [place] [address] Hemoglobin (Bld) [Mass/Vol] 13.1 G/dL Low 14.0-18.0 [facility] ([place] Comment on above: Performed By: #### C ALEXANDRE DUGGAN, ANEU #### [place] [address] #### LIPID, CMP, GFR, VIDH #### [address] [address] MCH (RBC) [Entitic mass] 31.2 pg Normal 27.0-31.2 [facility] ([place] Comment on above: Performed By: #### C BC, ADIFF, ANEU #### [place] [address] #### LIPID, CMP, GFR, VIDH #### [place] [address] MCHC (RBC) [Mass/Vol] 33.4 G/dL Normal 31.8-35.4 [facility] ([place] Comment on above: Performed By: #### C MIGUEL DUGGANIFF, ANEU #### [place] [address] #### LIPID, CMP, GFR, VIDH #### [place] [address] MCV (RBC) [Entitic vol] 93.4 fL Normal 80.0-94.0 [facility] ([place] Comment on above: Performed By: #### C ALEXANDRE DUGGAN, ANEU #### [place] [address] #### LIPID, CMP, GFR, VIDH #### [place] [address] Platelet mean volume (Bld) [Entitic vol] 8.9 fL Normal 7.4-10.4 [facility] ([place]) Comment on above: Performed By: #### C BC, ADIFF, ANEU #### [place] [address] #### LIPID, CMP, GFR, VIDH #### [place] [id number] Platelets (Bld) [#/Vol] 149 10 3/mcL Normal 130-400 [facility] ([place]) Comment on above: Performed By: #### C BCALEXANDRE, ANEU #### [place] [address] #### LIPID, CMP, GFR, VIDH #### [address] [address] RBC (Bld) [#/Vol] 4.21 10 6/mcL Normal 4.04-6.13 [facility] ([place] Comment on above: Performed By: #### C MIGUEL DUGGANIFF, ANEU #### [place] [address] #### LIPID, CMP, GFR, VIDH #### [place] [address] WBC (Bld) [#/Vol] 6.90 10 3/mcL Normal 4.60-10.80 [facility] ([place] Comment on above: Performed By: #### C ALEXANDRE DUGGAN, ANEU #### [place] [address] #### LIPID, CMP, GFR, VIDH #### [place] [address] CMPon 06-21-2019 Albumin [Mass/Vol] 3.9 G/dL Normal 3.4-4.8 [facility] ([place]) Comment on above: Performed By: #### C ALEXANDRE DUGGAN, ANEU #### [place] [address] #### LIPID, CMP, GFR, VIDH #### [place] [address] Albumin/Globulin [Mass ratio] 1.2 {ratio} Normal 1.1-2.5 [facility] ([place] Comment on above: Performed By: #### C BC ADIFF, ANEU #### [place] [address] #### LIPID, CMP, GFR, VIDH #### [place] [id number] ALP [Catalytic activity/Vol] 73 U/L Normal 40-135 [facility] ([place] Comment on above: Performed By: #### C BCALEXANDRE, ANEU #### [place] [address] #### LIPID, CMP, GFR, VIDH #### [address] [address] ALT [Catalytic activity/Vol] 25 U/L Normal 10-35 [facility] ([place] Comment on above: Performed By: #### C BC, ADIFF, ANEU #### [place] [address] #### LIPID, CMP, GFR, VIDH #### [address] [address] AST [Catalytic activity/Vol] 28 U/L Normal 10-40 [facility] ([place]) Comment on above: Performed By: #### C BC ADIFF, ANEU #### [place] [address] #### LIPID, CMP, GFR, VIDH #### [address] [address] Bili Total 0.7 mg/dL Normal 0.2-1.0 [facility] ([place] Comment on above: Result Comment: Use of this assay is not recommended for patients undergoing treatment with eltrombopag due to the potential for falsely elevated results. Performed By: #### C BC ADIFF, ANEU #### [place] [address] #### LIPID, CMP, GFR, VIDH #### [address] [address] Calcium [Mass/Vol] 9.4 mg/dL Normal 8.4-10.2 [facility] ([place]) Comment on above: Performed By: #### C BC, ADIFF, ANEU #### [place] [address] #### LIPID, CMP, GFR, VIDH #### [address] [address] Chloride [Moles/Vol] 105 mmol/L Normal 98-107 [facility] ([place] Comment on above: Performed By: #### C BC, ADIFF, ANEU #### [place] [id number] #### LIPID, CMP, GFR, VIDH #### [address] [address] CO2 [Moles/Vol] 32 mmol/L High 23-31 [facility] ([place] Comment on above: Performed By: #### C BC, ADIFF, ANEU #### [address] [address] #### LIPID, CMP, GFR, VIDH #### [address] [address] Creatinine [Mass/Vol] 1.29 mg/dL Normal 0.70-1.30 [facility] ([place] Comment on above: Performed By: #### C BC, ADIFF, ANEU #### [place] [address] #### LIPID, CMP, GFR, VIDH #### [place] [address] Electrolyte Balance 5.0 mEq/L Normal [facility] ([place] Comment on above: Performed By: #### C BC, ADIFF, ANEU #### [place] [address] #### LIPID, CMP, GFR, VIDH #### [address] [address] Globulin (S) [Mass/Vol] 3.2 G/dL Normal [facility] ([place] Comment on above: Performed By: #### C BC, ADIFF, ANEU #### [place] [address] #### LIPID, CMP, GFR, VIDH #### [address] [address] Glucose [Mass/Vol] 108 mg/dL Normal 83-110 [facility] ([place] Comment on above: Performed By: #### C BC, ADIFF, ANEU #### [place] [address] #### LIPID, CMP, GFR, VIDH #### [address] [address] Potassium [Moles/Vol] 3.9 mmol/L Normal 3.5-5.1 [facility] ([place] Comment on above: Performed By: #### C ALEXANDRE DUGGAN, ANEU #### [address] [address] #### LIPID, CMP, GFR, VIDH #### [address] [address] Protein [Mass/Vol] 7.1 G/dL Normal 6.4-8.2 [facility] ([place] Comment on above: Performed By: #### C ALEXANDRE DUGGAN, ANEU #### [address] [address] #### LIPID, CMP, GFR, VIDH #### [address] [address] Sodium [Moles/Vol] 142 mmol/L Normal 136-145 [facility] ([place] Comment on above: Performed By: #### C MIGUEL DUGGANIFF, ANEU #### [address] [address] #### LIPID, CMP, GFR, VIDH #### [address] [address] Urea nitrogen [Mass/Vol] 18 mg/dL Normal 7-18 [facility] ([place] Comment on above: Performed By: #### ALEXANDRE AMADOR, ANEU #### [address] [address] #### LIPID, CMP, GFR, VIDH #### [address] [address] Urea nitrogen/Creatinine [Mass ratio] 14 ratio Normal 7-27 [facility] ([place] Comment on above: Performed By: #### C ALEXANDRE DUGGAN, ANEU #### [address] [address] #### LIPID, CMP, GFR, VIDH #### [address] [address] LIPIDon 06-21-2019 Cholesterol [Mass/Vol] 89 mg/dL Normal 0-200 [facility] ([place] Comment on above: Result Comment: Chol esterol Reference Interval: Less than 200 Desirable 200-239 Borderline high risk 240 and above High risk Performed By: #### C BC, ADIFF, ANEU #### [address] [address] #### LIPID, CMP, GFR, VIDH #### [address] [address] Cholesterol in HDL [Mass/Vol] 24 mg/dL Low 40-60 [facility] ([place] Comment on above: Performed By: #### C BC, ADIFF, ANEU #### [address] [address] #### LIPID, CMP, GFR, VIDH #### [address] [address] Cholesterol in LDL [Mass/Vol] 47 mg/dL Normal 0-130 [facility] ([place] Comment on above: Performed By: #### C BC, ADIFF, ANEU #### [address] [address] #### LIPID, CMP, GFR, VIDH #### [address] [address] Triglyceride [Mass/Vol] 92 mg/dL Normal 0-150 [facility] ([place] Comment on above: Result Comment: Trig lyceride Reference Interval: Less than 150 Normal 150-199 Borderline high risk 200-499 High risk 500 or higher Very high risk Performed By: #### C BC, ADIFF, ANEU #### [address] [address] #### LIPID, CMP, GFR, VIDH #### [address] [address] VIDHon 06-21-2019 Vit. D 25-Hydroxy 23 ng/mL Normal [facility] ([place] Comment on above: Result Comment: Inte rpretive Values Based on Total 25(OH)D: Severe Deficiency <20 ng/mL Mild to Moderate Deficiency 20-30 ng/mL Optimum Levels 30-100 ng/mL Toxicity Possible >100 ng/mL Performed By: #### C ALEXANDRE DUGGAN, ANEU #### [place] [address] #### LIPID, CMP, GFR, VIDH #### [address] [address] .Auto Diffon 05-15-2019 Ammonia (P) [Mass/Vol] 0.60 10 3/mcL Normal 0.15-1.00 [facility] ([place] Comment on above: Performed By: #### ALEXANDRE AMADOR, ANEU #### [place] [address] #### LIPID, CMP, GFR, VIDH #### [address] [address] Basophils (Bld) [#/Vol] 0.00 10 3/mcL Normal 0.00-0.19 [facility] ([place]) Comment on above: Performed By: #### ALEXANDRE AMADOR, ANEU #### [place] [address] #### LIPID, CMP, GFR, VIDH #### [address] [address] Basophils/100 WBC (Bld) 0.3 % Normal 0.0-2.5 [facility] ([place]) Comment on above: Performed By: #### ALEXANDRE AMADOR, ANEU #### [place] [address] #### LIPID, CMP, GFR, VIDH #### [address] [address] Eosinophils (Bld) [#/Vol] 0.10 10 3/mcL Normal 0.00-0.40 [facility] ([place]) Comment on above: Performed By: #### ALEXANDRE AMADOR, ANEU #### [place] [address] #### LIPID, CMP, GFR, VIDH #### [address] [address] Eosinophils/100 WBC (Bld) 1.6 % Normal 0.0-7.0 [facility] ([place] Comment on above: Performed By: #### C BC, ADIFF, ANEU #### [address] [address] #### LIPID, CMP, GFR, VIDH #### [address] [address] Lymphocytes (Bld) [#/Vol] 1.40 10 3/mcL Normal 0.77-3.85 [facility] ([place]) Comment on above: Performed By: #### C BC, ADIFF, ANEU #### [place] [address] #### LIPID, CMP, GFR, VIDH #### [address] [address] Lymphocytes/100 WBC (Bld) 25.2 % Normal 10.0-50.0 [facility] ([place] Comment on above: Performed By: #### C BC, ADIFF, ANEU #### [place] [address] #### LIPID, CMP, GFR, VIDH #### [address] [address] Monocytes/100 WBC (Bld) 11.8 % Normal 1.7-13.0 [facility] ([place] Comment on above: Performed By: #### C BC, ADIFF, ANEU #### [place] [address] #### LIPID, CMP, GFR, VIDH #### [address] [address] Neutrophils/100 WBC (Bld) 61.1 % Normal 37.0-80.0 [facility] ([place] Comment on above: Performed By: #### C BC, ADIFF, ANEU #### [place] [address] #### LIPID, CMP, GFR, VIDH #### [address] [address] .GFRon 05-15-2019 GFR Non- 52 ml/min/1.73sqm Normal [facility] ([place] Comment on above: Result Comment: GFR Population [...] By: #### C ALEXANDRE DUGGAN, ANEU #### [address] [address] #### LIPID, CMP, GFR, VIDH #### [place] [address] GFR 62 ml/min/1.73sqm Normal [facility] ([place] Comment on above: Result Comment: GFR Population [...] By: #### C ALEXANDRE DUGGAN, ANEU #### [address] [address] #### LIPID, CMP, GFR, VIDH #### [address] [address] .NEUABSon 05-15-2019 Neutrophils (Bld) [#/Vol] 3.30 10 3/mcL Normal 2.85-6.16 [facility] ([place] Comment on above: Performed By: #### C ALEXANDRE DUGGAN, ANEU #### [place] [address] #### LIPID, CMP, GFR, VIDH #### [address] [address] CBCon 05-15-2019 Erythrocyte distribution width (RBC) [Ratio] 14.8 % High 11.5-14.5 [facility] ([place] Comment on above: Performed By: #### C ALEXANDRE DUGGAN, ANEU #### [place] [address] #### LIPID, CMP, GFR, VIDH #### [place] [address] Hematocrit (Bld) [Volume fraction] 39.1 % Low 42.0-52.0 [facility] ([place] Comment on above: Performed By: #### C ALEXANDRE DUGGAN, ANEU #### [place] [address] #### LIPID, CMP, GFR, VIDH #### [place] [address] Hemoglobin (Bld) [Mass/Vol] 13.0 G/dL Low 14.0-18.0 [facility] ([place] Comment on above: Performed By: #### C ALEXANDRE DUGGAN, ANEU #### [place] [address] #### LIPID, CMP, GFR, VIDH #### [place] [address] MCH (RBC) [Entitic mass] 31.4 pg High 27.0-31.2 [facility] ([place] Comment on above: Performed By: #### C ALEXANDRE DUGGAN, ANEU #### [place] [address] #### LIPID, CMP, GFR, VIDH #### [place] [address] MCHC (RBC) [Mass/Vol] 33.3 G/dL Normal 31.8-35.4 [facility] ([place] Comment on above: Performed By: #### C ALEXANDRE DUGGAN, ANEU #### [place] [address] #### LIPID, CMP, GFR, VIDH #### [address] [address] MCV (RBC) [Entitic vol] 94.2 fL High 80.0-94.0 [facility] ([place] Comment on above: Performed By: #### C URBAN ADLILY, ANEU #### [place] [address] #### LIPID, CMP, GFR, VIDH #### [address] [address] Platelet mean volume (Bld) [Entitic vol] 9.4 fL Normal 7.4-10.4 [facility] ([place] Comment on above: Performed By: #### C ALEXANDRE DUGGAN, ANEU #### [place] [address] #### LIPID, CMP, GFR, VIDH #### [address] [address] Platelets (Bld) [#/Vol] 131 10 3/mcL Normal 130-400 [facility] ([place] Comment on above: Performed By: #### C ALEXANDRE DUGGAN, ANEU #### [place] [address] #### LIPID, CMP, GFR, VIDH #### [address] [address] RBC (Bld) [#/Vol] 4.15 10 6/mcL Normal 4.04-6.13 [facility] ([place] Comment on above: Performed By: #### C URBNA ADLILY, ANEU #### [place] [address] #### LIPID, CMP, GFR, VIDH #### [address] [address] WBC (Bld) [#/Vol] 5.40 10 3/mcL Normal 4.60-10.80 [facility] ([place] Comment on above: Performed By: #### C BC, ADIFF, ANEU #### [address] [address] #### LIPID, CMP, GFR, VIDH #### [address] [address] CMPon 05-15-2019 Albumin [Mass/Vol] 3.7 G/dL Normal 3.4-4.8 [facility] ([place]) Comment on above: Performed By: #### C BC, ADIFF, ANEU #### [place] [address] #### LIPID, CMP, GFR, VIDH #### [address] [address] Albumin/Globulin [Mass ratio] 1.1 {ratio} Normal 1.1-2.5 [facility] ([place] Comment on above: Performed By: #### C URBAN, ADIFF, ANEU #### [address] [address] #### LIPID, CMP, GFR, VIDH #### [address] [address] ALP [Catalytic activity/Vol] 56 U/L Normal 40-135 [facility] ([place] Comment on above: Performed By: #### C MIGUEL DUGGANIFF, ANEU #### [place] [address] #### LIPID, CMP, GFR, VIDH #### [address] [address] ALT [Catalytic activity/Vol] 22 U/L Normal 10-35 [facility] ([place] Comment on above: Performed By: #### C BC, ADIFF, ANEU #### [place] [address] #### LIPID, CMP, GFR, VIDH #### [address] [address] AST [Catalytic activity/Vol] 23 U/L Normal 10-40 [facility] ([place]) Comment on above: Performed By: #### C BC, ADIFF, ANEU #### [address] [address] #### LIPID, CMP, GFR, VIDH #### [address] [address] Bili Total 0.8 mg/dL Normal 0.2-1.0 [facility] ([place] Comment on above: Performed By: #### C BC, ADIFF, ANEU #### [address] [address] #### LIPID, CMP, GFR, VIDH #### [address] [address] Calcium [Mass/Vol] 8.6 mg/dL Normal 8.4-10.2 [facility] ([place] Comment on above: Performed By: #### C BC, ADIFF, ANEU #### [place] [address] #### LIPID, CMP, GFR, VIDH #### [address] [address] Chloride [Moles/Vol] 100 mmol/L Normal 98-107 [facility] ([place] Comment on above: Performed By: #### C BC, ADIFF, ANEU #### [address] [address] #### LIPID, CMP, GFR, VIDH #### [address] [address] CO2 [Moles/Vol] 35 mmol/L High 23-31 [facility] ([place] Comment on above: Performed By: #### C BC, ADIFF, ANEU #### [address] [address] #### LIPID, CMP, GFR, VIDH #### [address] [address] Creatinine [Mass/Vol] 1.34 mg/dL High 0.70-1.30 [facility] ([place] Comment on above: Performed By: #### C BC, ADIFF, ANEU #### [address] [address] #### LIPID, CMP, GFR, VIDH #### [address] [address] Electrolyte Balance 7.0 mEq/L Normal [facility] ([place]) Comment on above: Performed By: #### C BC, ADIFF, ANEU #### [address] [address] #### LIPID, CMP, GFR, VIDH #### [address] [address] Globulin (S) [Mass/Vol] 3.3 G/dL Normal [facility] ([place] Comment on above: Performed By: #### C BC, ADIFF, ANEU #### [address] [address] #### LIPID, CMP, GFR, VIDH #### [address] [address] Glucose [Mass/Vol] 104 mg/dL Normal 83-110 [facility] ([place] Comment on above: Performed By: #### C BC, ADIFF, ANEU #### [address] [address] #### LIPID, CMP, GFR, VIDH #### [address] [address] Potassium [Moles/Vol] 3.5 mmol/L Normal 3.5-5.1 [facility] ([place] Comment on above: Performed By: #### C BC, ADIFF, ANEU #### [address] [address] #### LIPID, CMP, GFR, VIDH #### [address] [address] Protein [Mass/Vol] 7.0 G/dL Normal 6.4-8.2 [facility] ([place]) Comment on above: Performed By: #### C BC, ADIFF, ANEU #### [address] [address] #### LIPID, CMP, GFR, VIDH #### [address] [address] Sodium [Moles/Vol] 142 mmol/L Normal 136-145 [facility] ([place] Comment on above: Performed By: #### C BC, ADIFF, ANEU #### [address] [address] #### LIPID, CMP, GFR, VIDH #### [address] [address] Urea nitrogen [Mass/Vol] 33 mg/dL High 7-18 [facility] ([place] Comment on above: Performed By: #### C BC, ADIFF, ANEU #### [address] [address] #### LIPID, CMP, GFR, VIDH #### [address] [address] Urea nitrogen/Creatinine [Mass ratio] 25 ratio Normal 7-27 [facility] ([place] Comment on above: Performed By: #### C BC, ADIFF, ANEU #### [address] [address] #### LIPID, CMP, GFR, VIDH #### [address] [address] PBNPon 05-15-2019 Natriuretic peptide B (Bld) [Mass/Vol] 266 pg/mL Normal 0-450 [facility] ([place]) Comment on above: Result Comment: NT-p roBNP results of less than 300 pg/mL effectively rules out acute congestive heart failure with 99% negative predictive value. Performed By: #### C BC, ADIFF, ANEU #### [address] [address] #### LIPID, CMP, GFR, VIDH #### [address] [address] TROPon 05-15-2019 Troponin I.cardiac [Mass/Vol] 0.034 ng/mL Normal 0.000-0.040 [facility] ([place]) Comment on above: Result Comment: Trop onin I reference range: 0.00-0.040 ng/mL Negative and non-diagnostic. >0.040 ng/mL Consistent with cardiac damage, increased clinical risk and possibility of myocardial infarction. Serial measurements, a rise & fall in test results, clinical history, appropriate symptoms and/or ECG changes may help assess possibility of VA. *Other non-acute coronary syndrome conditions such as CHF, myocarditis, pulmonary emboli, sepsis and cardiac surgery could result in myocardial damage and increased troponin levels. Performed By: #### C BC, ADIFF, ANEU #### [address] [place], [place] [address] #### LIPID, CMP, GFR, VIDH #### [address] [address] CWDon 05-11-2019 CWD . MICRO - Microbiology [...] Locations *1: This test was performed at: [facility], [address] [place] [address], [address] , [facility] Normal [facility] ([place]) Comment on above: Performed By: #### C ALEXANDRE DUGGAN, ANEU #### [address] [address] #### LIPID, CMP, GFR, VIDH #### [address] [address] .Auto Diffon 02-18-2019 Ammonia (P) [Mass/Vol] 0.90 10 3/mcL Normal 0.15-1.00 [facility] ([place]) Comment on above: Performed By: #### C ALEXANDRE DUGGAN, ANEU #### [place] [address] #### LIPID, CMP, GFR, VIDH #### [address] [address] Basophils (Bld) [#/Vol] 0.00 10 3/mcL Normal 0.00-0.19 [facility] ([place]) Comment on above: Performed By: #### C ALEXANDRE DUGGAN, ANEU #### [place] [address] #### LIPID, CMP, GFR, VIDH #### [address] [address] Basophils/100 WBC (Bld) 0.5 % Normal 0.0-2.5 [facility] ([place] Comment on above: Performed By: #### C BC ADIFF, ANEU #### [place] [address] #### LIPID, CMP, GFR, VIDH #### [address] [address] Eosinophils (Bld) [#/Vol] 0.20 10 3/mcL Normal 0.00-0.40 [facility] ([place]) Comment on above: Performed By: #### C ALEXANDRE DUGGAN, ANEU #### [place] [address] #### LIPID, CMP, GFR, VIDH #### [address] [address] Eosinophils/100 WBC (Bld) 2.1 % Normal 0.0-7.0 [facility] ([place]) Comment on above: Performed By: #### C BC, ADIFF, ANEU #### [address] [address] #### LIPID, CMP, GFR, VIDH #### [address] [address] Lymphocytes (Bld) [#/Vol] 2.60 10 3/mcL Normal 0.77-3.85 [facility] ([place]) Comment on above: Performed By: #### C BC, ADIFF, ANEU #### [place] [address] #### LIPID, CMP, GFR, VIDH #### [address] [address] Lymphocytes/100 WBC (Bld) 34.8 % Normal 10.0-50.0 [facility] ([place]) Comment on above: Performed By: #### C BC, ADIFF, ANEU #### [place] [address] #### LIPID, CMP, GFR, VIDH #### [address] [address] Monocytes/100 WBC (Bld) 11.3 % Normal 1.7-13.0 [facility] ([place]) Comment on above: Performed By: #### C BC, ADIFF, ANEU #### [place] [address] #### LIPID, CMP, GFR, VIDH #### [address] [address] Neutrophils/100 WBC (Bld) 51.3 % Normal 37.0-80.0 Formerly [facility] ([place]) Comment on above: Performed By: #### C BC, ADIFF, ANEU #### [place] [address] #### LIPID, CMP, GFR, VIDH #### [address] [address] .GFRon 02-18-2019 GFR 68 ml/min/1.73sqm Normal [facility] ([place]) Comment on above: Result Comment: GFR Population [...] #### C ALEXANDRE DUGGAN, ANEU #### [address] [address] #### LIPID, CMP, GFR, VIDH #### [address] [address] GFR Non- 56 ml/min/1.73sqm Normal [facility] ([place]) Comment on above: Result Comment: GFR Population [...] By: #### C BC, ADLILY, ANEU #### [address] [address] #### LIPID, CMP, GFR, VIDH #### [address] [address] .NEUABSon 02-18-2019 Neutrophils (Bld) [#/Vol] 3.90 10 3/mcL Normal 2.85-6.16 [facility] ([place]) Comment on above: Performed By: #### C ALEXANDRE DUGGAN, ANEU #### [address] [address] #### LIPID, CMP, GFR, VIDH #### [place] [address] A1Con 02-18-2019 HbA1c (Bld) [Mass fraction] 6.0 % Normal 4.5-6.2 [facility] ([place]) Comment on above: Performed By: #### C ALEXANDRE DUGGAN, ANEU #### [place] [address] #### LIPID, CMP, GFR, VIDH #### [place] [address] CBCon 02-18-2019 Erythrocyte distribution width (RBC) [Ratio] 14.3 % Normal 11.5-14.5 [facility] ([place]) Comment on above: Performed By: #### ALEXANDRE AMADOR, ANEU #### [place] [address] #### LIPID, CMP, GFR, A1C, VIDH #### [place] [address] Hematocrit (Bld) [Volume fraction] 40.5 % Low 42.0-52.0 [facility] ([place] Comment on above: Performed By: #### C BCALEXANDRE, ANEU #### [place] [address] #### LIPID, CMP, GFR, A1C, VIDH #### [place] [address] Hemoglobin (Bld) [Mass/Vol] 13.4 G/dL Low 14.0-18.0 [facility] ([place]) Comment on above: Performed By: #### C ALEXANDRE DUGGAN, ANEU #### [place] [address] #### LIPID, CMP, GFR, A1C, VIDH #### [place] [address] MCH (RBC) [Entitic mass] 31.5 pg High 27.0-31.2 [facility] ([place] Comment on above: Performed By: #### C ALEXANDRE DUGGAN, ANEU #### [place] [address] #### LIPID, CMP, GFR, A1C, VIDH #### [place] [address] MCHC (RBC) [Mass/Vol] 33.2 G/dL Normal 31.8-35.4 [facility] ([place] Comment on above: Performed By: #### C ALEXANDRE DUGGAN, ANEU #### [place] [address] #### LIPID, CMP, GFR, A1C, VIDH #### [place] [address] MCV (RBC) [Entitic vol] 94.9 fL High 80.0-94.0 [facility] ([place] Comment on above: Performed By: #### ALEXANDRE AMADOR, ANEU #### [place] [address] #### LIPID, CMP, GFR, A1C, VIDH #### [place] [address] Platelet mean volume (Bld) [Entitic vol] 8.4 fL Normal 7.4-10.4 [facility] ([place] Comment on above: Performed By: #### C ALEXANDRE DUGGAN, ANEU #### [place] [address] #### LIPID, CMP, GFR, A1C, VIDH #### [place] [id number] Platelets (Bld) [#/Vol] 126 10 3/mcL Low 130-400 [facility] ([place] Comment on above: Performed By: #### C BC, ADIFF, ANEU #### [address] [address] #### LIPID, CMP, GFR, A1C, VIDH #### [address] [address] RBC (Bld) [#/Vol] 4.26 10 6/mcL Normal 4.04-6.13 [facility] ([place] Comment on above: Performed By: #### C BC, ADIFF, ANEU #### [place] [address] #### LIPID, CMP, GFR, A1C, VIDH #### [place] [id number] WBC (Bld) [#/Vol] 7.60 10 3/mcL Normal 4.60-10.80 [facility] ([place] Comment on above: Performed By: #### C MIGUEL DUGGANIFF, ANEU #### [place] [address] #### LIPID, CMP, GFR, A1C, VIDH #### [place] [address] CMPon 02-18-2019 Albumin [Mass/Vol] 4.1 G/dL Normal 3.4-4.8 [facility] ([place]) Comment on above: Performed By: #### C MIGUEL DUGGANIFF, ANEU #### [place] [address] #### LIPID, CMP, GFR, VIDH #### [place] [address] Albumin/Globulin [Mass ratio] 1.2 {ratio} Normal 1.1-2.5 [facility] ([place] Comment on above: Performed By: #### C BC, ADIFF, ANEU #### [place] [address] #### LIPID, CMP, GFR, VIDH #### [place] [id number] ALP [Catalytic activity/Vol] 72 U/L Normal 40-135 [facility] ([place] Comment on above: Performed By: #### C BC, ADIFF, ANEU #### [address] [address] #### LIPID, CMP, GFR, VIDH #### [address] [address] ALT [Catalytic activity/Vol] 26 U/L Normal 10-35 [facility] ([place] Comment on above: Performed By: #### C BC, ADIFF, ANEU #### [address] [address] #### LIPID, CMP, GFR, VIDH #### [address] [address] AST [Catalytic activity/Vol] 25 U/L Normal 10-40 [facility] ([place] Comment on above: Performed By: #### C BC, ADIFF, ANEU #### [address] [address] #### LIPID, CMP, GFR, VIDH #### [address] [address] Bili Total 0.8 mg/dL Normal 0.2-1.0 [facility] ([place]) Comment on above: Performed By: #### C BC, ADIFF, ANEU #### [place] [address] #### LIPID, CMP, GFR, VIDH #### [address] [address] Calcium [Mass/Vol] 9.6 mg/dL Normal 8.4-10.2 [facility] ([place] Comment on above: Performed By: #### C BC, ADIFF, ANEU #### [address] [address] #### LIPID, CMP, GFR, VIDH #### [address] [address] Chloride [Moles/Vol] 105 mmol/L Normal 98-107 [facility] ([place] Comment on above: Performed By: #### C BC, ADIFF, ANEU #### [address] [address] #### LIPID, CMP, GFR, VIDH #### [address] [address] CO2 [Moles/Vol] 31 mmol/L Normal 23-31 [facility] ([place]) Comment on above: Performed By: #### C BC, ADIFF, ANEU #### [place] [address] #### LIPID, CMP, GFR, VIDH #### [address] [address] Creatinine [Mass/Vol] 1.25 mg/dL Normal 0.70-1.30 [facility] ([place] Comment on above: Performed By: #### C BC, ADIFF, ANEU #### [place] [address] #### LIPID, CMP, GFR, VIDH #### [place] [address] Electrolyte Balance 8.0 mEq/L Normal [facility] ([place]) Comment on above: Performed By: #### C BC, ADIFF, ANEU #### [place] [address] #### LIPID, CMP, GFR, VIDH #### [address] [address] Globulin (S) [Mass/Vol] 3.3 G/dL Normal [facility] ([place] Comment on above: Performed By: #### C BC, ADIFF, ANEU #### [place] [address] #### LIPID, CMP, GFR, VIDH #### [address] [address] Glucose [Mass/Vol] 111 mg/dL High 83-110 [facility] ([place] Comment on above: Performed By: #### C BC, ADIFF, ANEU #### [place] [address] #### LIPID, CMP, GFR, VIDH #### [address] [address] Potassium [Moles/Vol] 3.9 mmol/L Normal 3.5-5.1 [facility] ([place] Comment on above: Performed By: #### C ALEXANDRE DUGGAN, ANEU #### [address] [address] #### LIPID, CMP, GFR, VIDH #### [address] [address] Protein [Mass/Vol] 7.4 G/dL Normal 6.4-8.2 [facility] ([place] Comment on above: Performed By: #### C ALEXANDRE DUGGAN, ANEU #### [address] [address] #### LIPID, CMP, GFR, VIDH #### [address] [address] Sodium [Moles/Vol] 144 mmol/L Normal 136-145 [facility] ([place] Comment on above: Performed By: #### C ALEXANDRE DUGGAN, ANEU #### [address] [address] #### LIPID, CMP, GFR, VIDH #### [address] [address] Urea nitrogen [Mass/Vol] 19 mg/dL High 7-18 [facility] ([place] Comment on above: Performed By: #### C ALEXANDRE DUGGAN, ANEU #### [address] [address] #### LIPID, CMP, GFR, VIDH #### [address] [address] Urea nitrogen/Creatinine [Mass ratio] 15 ratio Normal 7-27 [facility] ([place] Comment on above: Performed By: #### C ALEXANDRE DUGGAN, ANEU #### [address] [address] #### LIPID, CMP, GFR, VIDH #### [address] [address] LIPIDon 02-18-2019 Cholesterol [Mass/Vol] 90 mg/dL Normal 0-200 [facility] ([place] Comment on above: Result Comment: Chol esterol Reference Interval: Less than 200 Desirable 200-239 Borderline high risk 240 and above High risk Performed By: #### C BC, ADIFF, ANEU #### [address] [address] #### LIPID, CMP, GFR, VIDH #### [address] [address] Cholesterol in HDL [Mass/Vol] 28 mg/dL Low 40-60 [facility] ([place] Comment on above: Performed By: #### C BC, ADIFF, ANEU #### [address] [address] #### LIPID, CMP, GFR, VIDH #### [address] [address] Cholesterol in LDL [Mass/Vol] 44 mg/dL Normal 0-130 [facility] ([place] Comment on above: Performed By: #### C BC, ADIFF, ANEU #### [address] [address] #### LIPID, CMP, GFR, VIDH #### [address] [address] Triglyceride [Mass/Vol] 90 mg/dL Normal 0-150 [facility] ([place] Comment on above: Result Comment: Trig lyceride Reference Interval: Less than 150 Normal 150-199 Borderline high risk 200-499 High risk 500 or higher Very high risk Performed By: #### C BC, ADIFF, ANEU #### [address] [address] #### LIPID, CMP, GFR, VIDH #### [address] [address] VIDHon 02-18-2019 Vit. D 25-Hydroxy 32 ng/mL Normal [facility] ([place] Comment on above: Result Comment: Inte rpretive Values Based on Total 25(OH)D: Severe Deficiency <20 ng/mL Mild to Moderate Deficiency 20-30 ng/mL Optimum Levels 30-100 ng/mL Toxicity Possible >100 ng/mL Performed By: #### C ALEXANDRE DUGGAN ANEU #### [address] [address] #### LIPID, CMP, GFR, VIDH #### [place] [address] RENINDon 08-15-2018 Direct Renin 2.4 pg/mL Normal [facility] ([place] Comment on above: Result Comment: Soco n Reference Range, 41-99 years: Upright: 3.6-81.6 pg/mL Supine: 2.5-45.1 pg/mL Performed By: [facility] [employer] [address] [place] [address] Evaporator Supervisor: Taty Phillips#: [id number] Phone#: Performed By: #### P TH #### [place] [address] #### RENIND #### [place] [address] PTHon 08-14-2018 PTH, Intact 30.4 pg/mL Normal 18.5-88.0 [facility] ([place]) Comment on above: Performed By: #### P TH #### [place] [address] #### RENIND #### [address] [address] VIDHon 08-14-2018 Vit. D 25-Hydroxy 27 ng/mL Normal [facility] ([place] Comment on above: Result Comment: Inte rpretive Values Based on Total 25(OH)D: Severe Deficiency <20 ng/mL Mild to Moderate Deficiency 20-30 ng/mL Optimum Levels 30-100 ng/mL Toxicity Possible >100 ng/mL Performed By: #### C ALEXANDRE DUGGAN ANEU #### [place] [address] #### LIPID, CMP, GFR, VIDH #### [place] [address] .Auto Diffon 08-13-2018 Ammonia (P) [Mass/Vol] 0.60 10 3/mcL Normal 0.15-1.00 [facility] ([place] Comment on above: Performed By: #### C URBAN, MIGUELIFF, ANEU #### [place] [address] #### LIPID, CMP, GFR, VIDH #### [address] [address] Basophils (Bld) [#/Vol] 0.00 10 3/mcL Normal 0.00-0.19 [facility] ([place]) Comment on above: Performed By: #### C URBAN, ADIFF, ANEU #### [place] [address] #### LIPID, CMP, GFR, VIDH #### [address] [address] Basophils/100 WBC (Bld) 0.4 % Normal 0.0-2.5 [facility] ([place] Comment on above: Performed By: #### C URBAN, ADIFF, ANEU #### [place] [address] #### LIPID, CMP, GFR, VIDH #### [address] [address] Eosinophils (Bld) [#/Vol] 0.10 10 3/mcL Normal 0.00-0.40 [facility] ([place] Comment on above: Performed By: #### C URBAN, ALEXANDRE, ANEU #### [place] [address] #### LIPID, CMP, GFR, VIDH #### [address] [address] Eosinophils/100 WBC (Bld) 1.2 % Normal 0.0-7.0 [facility] ([place] Comment on above: Performed By: #### C BC, ADIFF, ANEU #### [place] [address] #### LIPID, CMP, GFR, VIDH #### [address] [address] Lymphocytes (Bld) [#/Vol] 1.80 10 3/mcL Normal 0.77-3.85 [facility] ([place]) Comment on above: Performed By: #### C BC ADIFF, ANEU #### [address] [address] #### LIPID, CMP, GFR, VIDH #### [address] [address] Lymphocytes/100 WBC (Bld) 29.6 % Normal 10.0-50.0 [facility] ([place]) Comment on above: Performed By: #### C BC, ADIFF, ANEU #### [address] [address] #### LIPID, CMP, GFR, VIDH #### [address] [address] Monocytes/100 WBC (Bld) 9.4 % Normal 1.7-13.0 [facility] ([place] Comment on above: Performed By: #### C BCMIGUELIFF, ANEU #### [address] [address] #### LIPID, CMP, GFR, VIDH #### [address] [address] Neutrophils/100 WBC (Bld) 59.4 % Normal 37.0-80.0 [facility] ([place] Comment on above: Performed By: #### ALEXANDRE AMADOR, ANEU #### [place] [address] #### LIPID, CMP, GFR, VIDH #### [address] [address] .GFRon 08-13-2018 GFR Non- 67 ml/min/1.73sqm Normal [facility] ([place] Comment on above: Result Comment: GFR Population [...] By: #### C BC, ADIFF, ANEU #### [address] [address] #### LIPID, CMP, GFR, VIDH #### [address] [address] GFR 81 ml/min/1.73sqm Normal [facility] ([place] Comment on above: Result Comment: GFR Population [...] By: #### C BC, ADIFF, ANEU #### [address] [address] #### LIPID, CMP, GFR, VIDH #### [address] [address] .NEUABSon 08-13-2018 Neutrophils (Bld) [#/Vol] 3.60 10 3/mcL Normal 2.85-6.16 [facility] ([place] Comment on above: Performed By: #### C BC, ADIFF, ANEU #### [address] [address] #### LIPID, CMP, GFR, VIDH #### [place] [address] CBCon 08-13-2018 Erythrocyte distribution width (RBC) [Ratio] 14.4 % Normal 11.5-14.5 [facility] ([place] Comment on above: Order Comment: FASTI NG Performed By: #### C BC, ADIFF, ANEU #### [address] [address] #### LIPID, CMP, GFR, VIDH #### [address] [address] Hematocrit (Bld) [Volume fraction] 38.5 % Low 42.0-52.0 [facility] ([place] Comment on above: Order Comment: FASTI NG Performed By: #### C BC, ADIFF, ANEU #### [place] [address] #### LIPID, CMP, GFR, VIDH #### [place] [address] Hemoglobin (Bld) [Mass/Vol] 13.0 G/dL Low 14.0-18.0 [facility] ([place] Comment on above: Order Comment: FASTI NG Performed By: #### C BC, ADIFF, ANEU #### [place] [address] #### LIPID, CMP, GFR, VIDH #### [address] [address] MCH (RBC) [Entitic mass] 31.6 pg High 27.0-31.2 [facility] ([place] Comment on above: Order Comment: FASTI NG Performed By: #### C BC, ADIFF, ANEU #### [address] [address] #### LIPID, CMP, GFR, VIDH #### [address] [address] MCHC (RBC) [Mass/Vol] 33.8 G/dL Normal 31.8-35.4 [facility] ([place] Comment on above: Order Comment: FASTI NG Performed By: #### C BC, ADIFF, ANEU #### [place] [address] #### LIPID, CMP, GFR, VIDH #### [address] [address] MCV (RBC) [Entitic vol] 93.3 fL Normal 80.0-94.0 [facility] ([place] Comment on above: Order Comment: FASTI NG Performed By: #### C BC, ADIFF, ANEU #### [place] [address] #### LIPID, CMP, GFR, VIDH #### [address] [address] Platelet mean volume (Bld) [Entitic vol] 8.5 fL Normal 7.4-10.4 [facility] ([place] Comment on above: Order Comment: FASTI NG Performed By: #### C BC, ADIFF, ANEU #### [place] [address] #### LIPID, CMP, GFR, VIDH #### [address] [address] Platelets (Bld) [#/Vol] 128 10 3/mcL Low 130-400 [facility] ([place] Comment on above: Order Comment: FASTI NG Performed By: #### C BC, ADIFF, ANEU #### [place] [address] #### LIPID, CMP, GFR, VIDH #### [address] [address] RBC (Bld) [#/Vol] 4.12 10 6/mcL Normal 4.04-6.13 [facility] ([place] Comment on above: Order Comment: FASTI NG Performed By: #### C BC, ADIFF, ANEU #### [place] [address] #### LIPID, CMP, GFR, VIDH #### [address] [address] WBC (Bld) [#/Vol] 6.10 10 3/mcL Normal 4.60-10.80 [facility] ([place] Comment on above: Order Comment: FASTI NG Performed By: #### C BC, ADIFF, ANEU #### [place] [address] #### LIPID, CMP, GFR, VIDH #### [address] [address] CMPon 08-13-2018 Albumin [Mass/Vol] 4.0 G/dL Normal 3.4-4.8 [facility] ([place]) Comment on above: Performed By: #### C BC, ADIFF, ANEU #### [place] [address] #### LIPID, CMP, GFR, VIDH #### [address] [address] Albumin/Globulin [Mass ratio] 1.2 {ratio} Normal 1.1-2.5 [facility] ([place] Comment on above: Performed By: #### C BC, ADIFF, ANEU #### [place] [address] #### LIPID, CMP, GFR, VIDH #### [address] [address] ALP [Catalytic activity/Vol] 73 U/L Normal 40-135 [facility] ([place]) Comment on above: Performed By: #### C BC, ADIFF, ANEU #### [place] [address] #### LIPID, CMP, GFR, VIDH #### [address] [address] ALT [Catalytic activity/Vol] 24 U/L Normal 10-35 [facility] ([place]) Comment on above: Performed By: #### C BC, ADIFF, ANEU #### [place] [address] #### LIPID, CMP, GFR, VIDH #### [address] [address] AST [Catalytic activity/Vol] 23 U/L Normal 10-40 [facility] ([place]) Comment on above: Performed By: #### C BC, ADIFF, ANEU #### [address] [address] #### LIPID, CMP, GFR, VIDH #### [address] [address] Bili Total 0.7 mg/dL Normal 0.2-1.0 [facility] ([place] Comment on above: Performed By: #### C BC, ADIFF, ANEU #### [place] [address] #### LIPID, CMP, GFR, VIDH #### [address] [address] Calcium [Mass/Vol] 9.3 mg/dL Normal 8.4-10.2 [facility] ([place] Comment on above: Performed By: #### C BC, ADIFF, ANEU #### [place] [address] #### LIPID, CMP, GFR, VIDH #### [address] [address] Chloride [Moles/Vol] 106 mmol/L Normal 98-107 [facility] ([place] Comment on above: Performed By: #### C BC, ADIFF, ANEU #### [address] [address] #### LIPID, CMP, GFR, VIDH #### [address] [address] CO2 [Moles/Vol] 30 mmol/L Normal 23-31 [facility] ([place]) Comment on above: Performed By: #### C BC, ADIFF, ANEU #### [address] [address] #### LIPID, CMP, GFR, VIDH #### [address] [address] Creatinine [Mass/Vol] 1.07 mg/dL Normal 0.70-1.30 [facility] ([place] Comment on above: Performed By: #### C BC, ADIFF, ANEU #### [address] [address] #### LIPID, CMP, GFR, VIDH #### [address] [address] Electrolyte Balance 8.0 mEq/L Normal [facility] ([place]) Comment on above: Performed By: #### C BC, ADIFF, ANEU #### [address] [address] #### LIPID, CMP, GFR, VIDH #### [address] [address] Globulin (S) [Mass/Vol] 3.4 G/dL Normal [facility] ([place] Comment on above: Performed By: #### C BC, ADIFF, ANEU #### [address] [address] #### LIPID, CMP, GFR, VIDH #### [address] [address] Glucose [Mass/Vol] 95 mg/dL Normal 83-110 [facility] ([place] Comment on above: Performed By: #### C BC, ADIFF, ANEU #### [address] [address] #### LIPID, CMP, GFR, VIDH #### [address] [address] Potassium [Moles/Vol] 4.1 mmol/L Normal 3.5-5.1 [facility] ([place] Comment on above: Performed By: #### C BC, ADIFF, ANEU #### [address] [address] #### LIPID, CMP, GFR, VIDH #### [address] [address] Protein [Mass/Vol] 7.4 G/dL Normal 6.4-8.2 [facility] ([place] Comment on above: Performed By: #### C BC, ADIFF, ANEU #### [address] [address] #### LIPID, CMP, GFR, VIDH #### [address] [address] Sodium [Moles/Vol] 144 mmol/L Normal 136-145 [facility] ([place] Comment on above: Performed By: #### C BC ADIFF, ANEU #### [address] [address] #### LIPID, CMP, GFR, VIDH #### [address] [address] Urea nitrogen [Mass/Vol] 16 mg/dL Normal 7-18 [facility] ([place] Comment on above: Performed By: #### C BC, ADIFF, ANEU #### [address] [address] #### LIPID, CMP, GFR, VIDH #### [address] [address] Urea nitrogen/Creatinine [Mass ratio] 15 ratio Normal 7-27 [facility] ([place] Comment on above: Performed By: #### C BCMIGUELIFF, ANEU #### [address] [address] #### LIPID, CMP, GFR, VIDH #### [address] [address] LIPIDon 08-13-2018 Cholesterol [Mass/Vol] 96 mg/dL Normal 0-200 [facility] ([place] Comment on above: Result Comment: Chol esterol Reference Interval: Less than 200 Desirable 200-239 Borderline high risk 240 and above High risk Performed By: #### C BC ADIFF, ANEU #### [address] [address] #### LIPID, CMP, GFR, VIDH #### [address] [address] Cholesterol in HDL [Mass/Vol] 27 mg/dL Low 40-60 [facility] ([place] Comment on above: Performed By: #### C BC, ADIFF, ANEU #### [address] [address] #### LIPID, CMP, GFR, VIDH #### [address] [address] Cholesterol in LDL [Mass/Vol] 46 mg/dL Normal 0-130 [facility] ([place] Comment on above: Performed By: #### C ALEXANDRE DUGGAN, ANEU #### [facility] [address] [place], [place] [address] #### LIPID, CMP, GFR, VIDH #### [facility] [address] [place] [address] Triglyceride [Mass/Vol] 116 mg/dL Normal 0-150 [facility] ([place] Comment on above: Result Comment: Trig lyceride Reference Interval: Less than 150 Normal 150-199 Borderline high risk 200-499 High risk 500 or higher Very high risk Performed By: #### C ALEXANDRE DUGGAN ANEU #### [facility] [address] [place], [place] [address] #### LIPID, CMP, GFR, VIDH #### [facility] [address] [place] [id number] Summary Purpose Family History No Family History Records Found Advance Directives No Advanced Directives Records Found Additional Source Comments (unrecognized sect ion and content) No Status Records Found INFORMATION SOURCE (unrecogn ized section and content) DATE CREATED AUTHOR 06/21/2019 [facility] ([place] FOR RECORDS PERTAINING TO PATIENTS WHO ARE [...] BE BASED ON THE PRIMARY CLINICAL RECORDS. [facility]. provides no warranty or guarantee of the accuracy or completeness of information in this document.
[2024-01-15 12:36] LABS: Microalbumin,Random Urine 13.3 mg/L (NO RANGE EST.); Microalbumin:Creatinine Ratio 11.4 mg/g CRE (<30 mg/g CRE)
== END | disposition home or self-care (01) ==
LOC: LABSPEC 11:35
PROVIDERS: PCP Nurse Practitioner Family; Referring Provider Nurse Practitioner Family; Visit Provider Nurse Practitioner Family
DX: I10 Essential (primary) hypertension (principal)
CPT/HCPCS: 82043; 82570

== ENCOUNTER → 2024-07-14 | Outpatient (CLI) | payer MEDICARE, SELFPAY ==
[2024-07-14 09:49] LABS: Hemoglobin 12.4 g/dL (13.0-16.5); Mean Corp Hgb Conc 33.5 g/dL (32-36); Mean Corpuscular Hgb 32.5 pg (27.0-32.0); Mean Corpuscular Volume 96.9 fL (80-94); Mean Platelet Vol. 10.6 fl (6.2-12.0); Platelet Count 133 K/mm3 (150-450); RBC Distribution Width CV 15.3 % (11.6-14.6); RBC Distribution Width SD 54.6 fl (35.1-43.9); Red Blood Count 3.82 M/mm3 (4.6-6.2); White Blood Count 8.4 K/mm3 (4.4-11.0)
[2024-07-14 11:07] LABS: PTHIN 44 pg/mL (11-61)
[2024-07-14 11:38] LABS: ALB/GLOB Ratio 1.2 RATIO (0.9-2.4); AST(SGOT) 25 U/L (<=37); Alanine Aminotransfer ALT/SGPT 13 U/L (<=46); Alkaline Phosphatase 73 U/L (40-129); Anion Gap 11 (5-15); BUN 19 mg/dL (4-19); BUN/Creat Ratio 14.5 RATIO (10-20); Calcium,Total 9.3 mg/dL (7.6-11.0); Chloride 105 mmol/L (98-108); Cholesterol 104 mg/dL (<=200); EST Glomerular Filtration Rate 55 (>60); Globulin 3.2 g/dL (2.2-4.2); Glucose 113 mg/dL (70-99); High Density Lipoprotein 24 mg/dL; Low Density Lipoprotein Calc. 53 mg/dL; Potassium 4.3 mmol/L (3.3-5.1); Pro- Brain NATRIURETIC PEPTIDE 1187 pg/mL (<=1800); Protein, Total 7.2 g/dL (5.9-8.4); Sodium Level 140 mmol/L (133-145); Total Bilirubin 0.69 mg/dL (0.00-1.30); Triglycerides 136 mg/dL; Very Low Density Lipoprotein 27 mg/dL (5-40); Vitamin D,25 Hydroxy 35.7 ng/mL (30-100)
[2024-07-14 12:21] LABS: Iron 79 ug/dL (65-175); Iron Binding Capacity,Unsat 132 ug/dL (228-428)
[2024-07-14 13:55] LABS: Iron Binding Capacity,Total 211 ug/dL (250-450); PERCENT IRON SATURATION 37.4 % (9-55)
== END | disposition home or self-care (01) ==
PROVIDERS: PCP Nurse Practitioner Family; Referring Provider Nurse Practitioner Family; Visit Provider Nurse Practitioner Family
DX: I12.9 Hypertensive chronic kidney disease with stage 1 through stage 4 chronic kidney disease, or unspecified chronic kidney disease (principal); I50.9 Heart failure, unspecified; N18.30 Chronic kidney disease, stage 3 unspecified; E03.9 Hypothyroidism, unspecified; E78.5 Hyperlipidemia, unspecified; I25.10 Atherosclerotic heart disease of native coronary artery without angina pectoris; D63.1 Anemia in chronic kidney disease; E55.9 Vitamin D deficiency, unspecified
CPT/HCPCS: 36415; 80053; 80061; 82306; 83540; 83550; 83880; 83970; 84439; 84443; 85027

== ENCOUNTER → 2024-07-15 | Outpatient (CLI) | payer MEDICARE, SELFPAY ==
[2024-07-15 13:41] LABS: Microalbumin:Creatinine Ratio 141.7 mg/g CRE
== END | disposition home or self-care (01) ==
LOC: LAB 11:43 → LABSPEC 11:44
PROVIDERS: PCP Nurse Practitioner Family; Referring Provider Nurse Practitioner Family; Visit Provider Nurse Practitioner Family
DX: I10 Essential (primary) hypertension (principal)
CPT/HCPCS: 82043; 82570

== ENCOUNTER 2024-08-24 03:52 | Emergency (ER) | payer MEDICARE, SELFPAY ==
[2024-08-24] VITALS (7 sets, daily range): BP systolic 93–133; BP diastolic 54–78; PULSE 41–88; RESP 14–21; TEMP 36.6–36.8; O2SAT 94–99; BMI 36.2
--- NOTE | 2024-08-24 04:15 | EKG12_ITS ---
Test Reason : DYSRHYTHMIA Blood Pressure : */* mmHG Vent. Rate : 50 BPM Atrial Rate : 286 BPM P-R Int : * ms QRS Dur : 90 ms QT Int : 472 ms P-R-T Axes : 72 4 101 degrees QTcB Int : 430 ms Atrial flutter with variable A-V block Low voltage QRS Possible Inferior infarct , age undetermined Cannot rule out Anterior infarct , age undetermined Abnormal ECG Confirmed by Honorio Santaigo ([id number]), web content editor FREDERICK QUINTANILLA ([id number]) on 08/25/2024 10:58:31 AM Referred By: TB Confirmed By: Honorio Santiago
--- NOTE | 2024-08-24 04:30 | RAD_ITS ---
PROCEDURE: CHEST PA AND LATERAL 08/24/2024 REASON FOR EXAM: WEAK TECHNIQUE: Frontal and lateral views of the chest. 2 frontals and 2 lateral images, 4 total images COMPARISON: 04/29/2022 FINDINGS: The lungs appear clear. No pleural effusion. The cardiac and mediastinal contours appear unchanged. Ectatic thoracic aorta again noted. Bilateral AC joint degenerative changes again seen. Note of an age indeterminate [id number] vertebral body height loss, compression deformity upper lumbar spine what may be L1 or L2 on the lateral view. RAD/Chest PA and Lateral IMPRESSION: No evidence of acute cardiopulmonary disease. Note of an age indeterminate [id number] vertebral body height loss, compr ession deformity upper lumbar spine what may be L1 or L2 on the lateral view, clinically correlate. Reading Location: [id number]
[2024-08-24 04:34] LABS: Absolute Lymphocyte Count 3.67 X10^3/uL (0.83-4.51); Absolute Neutrophil Count 5.3 X10^3/uL (2.0-7.7); Basophil# 0.04 X10^3/uL; Basophil% 0.4 % (0-1); Eosinophil# 0.15 X10^3/uL; Eosinophils% 1.5 % (0-5); Hematocrit 39.9 % (40-54); Hemoglobin 13.2 g/dL (13.0-16.5); Lymphocyte # 3.67 X10^3/ul (0.83-4.51); Lymphocyte % 35.7 % (19-41); Mean Corp Hgb Conc 33.1 g/dL (32-36); Mean Corpuscular Hgb 32.4 pg (27.0-32.0); Mean Corpuscular Volume 97.8 fL (80-94); Mean Platelet Vol. 10.9 fl (6.2-12.0); Monocyte# 1.05 X10^3/uL; Monocyte% 10.2 % (0-10); NRBC Flagged by Analyzer 0 % (0-5); Neutrophil # 5.33 X10^3/uL (2.7-7.7); Neutrophil % 51.8 % (47-70); Platelet Count 138 K/mm3 (150-450); RBC Distribution Width CV 14.3 % (11.6-14.6); RBC Distribution Width SD 51.7 fl (35.1-43.9); Red Blood Count 4.08 M/mm3 (4.6-6.2); White Blood Count 10.3 K/mm3 (4.4-11.0)
--- NOTE | 2024-08-24 05:08 | EX.ED.DYSGE1 ---
HPI History of Present Illness Chief Complaint: General Illness Narrative Narrative: Patient is a 83-year-old male past medical history of paroxysmal atrial fibrillation, hypothyroidism, BPH, hyperlipidemia who presented to the emerged part with a chief complaint of generalized not feeling well overall. Patient states that he has been feeling lousy for the last several days and notes that he followed up with his primary care physician last week and noted that they could not find any acute issues to correlate with his symptoms. He states that he also recently followed up with his hash slinger Dr. Morgan who took him off his statin, Plavix, niacin and he states that he does not agree with this. Patient also noted that his atenolol was cut in half he was on 50 mg twice daily and he was told to take it once a day in the morning. [facility] Medical History Bilateral leg ulcer Dependent edema Lymphedema Leg edema, right Leg edema, left Leg swelling Obstructive sleep apnea History of upper gastrointestinal hemorrhage History of myocardial infarction Obesity (BMI 30-39.9) Paroxysmal atrial fibrillation COVID-19 virus detected (03/21/21) Obstructive sleep apnea Obesity BPH (benign prostatic hyperplasia) Essential (primary) hypertension Hyperlipidemia Atherosclerosis of [place] coronary artery of [place] heart without angina pectoris GERD (gastroesophageal reflux disease) Syncope and collapse Cardiac arrest (11/2015) Home Medications ?Medication ?Instructions ?Recorded ?Last Taken ?Type omega-3 fatty acids 1,000 mg 1,000 mg PO DAILY 09/30/20 Unknown History capsule (Fish Oil Concentrate) cinnamon bark 500 mg capsule 500 mg PO DAILY 12/08/21 Unknown History (Cinnamon) levothyroxine 25 mcg tablet 25 mcg PO DAILY 02/09/23 Unknown History losartan 100 mg tablet 100 mg PO DAILY #90 tabs 02/19/23 Unknown Rx nitroglycerin 0.4 mg sublingual 0.4 mg sublingual Q5-15M PRN chest 02/19/23 Unknown Rx tablet pain #25 tabs cholecalciferol (vitamin D3) 50 50 mcg PO DAILY 07/26/23 Unknown History mcg (2,000 unit) capsule furosemide 40 mg tablet 40 mg PO DAILY #90 tabs 04/07/24 Unknown Rx famotidine 20 mg tablet 20 mg PO BID #60 tabs 07/10/24 Unknown Rx atenolol 50 mg tablet 50 mg PO QDAY #90 tabs 08/07/24 Unknown Rx Allergy/AdvReac Type Severity Reaction Status Date / Time No Known Allergies Allergy Unverified 08/07/24 14:34 Family History Father CAD (coronary artery disease) Heart disease Hypertension Myocardial infarction Brother CAD (coronary artery disease) Heart disease Hypertension Myocardial infarction Mother CAD (coronary artery disease) Heart disease Hypertension Myocardial infarction Other Diabetes Surgical History History of total right hip replacement History of coronary artery stent placement (12/07/15) History of right hip replacement (09/2013) History of hemorrhoidectomy (1972) Social History household members: spouse Smoking Status: Former smoker how long ago did patient quit smoking: Quit in his 30s, smoked since teen (~ 15-20 years), < 1 ppd day. alcohol intake: former substance use type: does not use caffeine: Yes Type: tea Number of servings: 2 ROS ROS ED ROS Narrative Constitutional: Denies lightness, dizziness, fevers, chills Eyes: Denies change in vision double vision blurry vision Cardiovascular: Denies chest pain or palpitations Respiratory: Denies coughing wheezing shortness of breath Abdomen: Denies abdominal pain nausea vomit diarrhea : Denies urinary symptoms Neurological: Denies numbness, wheeze, tingling Musculoskeletal: Denies back pain Skin: Denies rashes or lesions EXAM Physical Exam Narrative Exam Narrative: General: Patient lying in bed rest comfortably did not appear to be acute distress Head: Atraumatic, normocephalic Eyes: PERRL bilaterally, EOMI bilaterally, no conjunctival injection noted Neck: Soft, supple, trachea midline Cardiovascular: Patient bradycardic with a regular rhythm Respiratory: Clear to auscultation bilaterally Abdomen: Soft, nondistended, tender to palpation Extremities: +4/5 strength of the bilateral upper and lower extremities, radial pulses +2/4 in bilateral extremities, no pedal edema on exam Neurological: Patient follow commands knew that he was at [facility] years 2024 Skin: Warm, dry, intact no rashes or lesions noted Const Vital Signs: 08/24/24 03:53 08/24/24 03:55 08/24/24 04:25 Temperature 97.8 F Temperature Source Oral Pulse Rate 62 Respiratory Rate 18 Respiratory Effort Normal Non-Labored Respiratory Pattern Normal Blood Pressure 133/77 H Blood Pressure Mean 95 Pulse Ox 99 94 Oxygen Delivery Method Room Air Room Air 08/24/24 05:52 08/24/24 07:07 Temperature Temperature Source Pulse Rate 44 L 41 L Respiratory Rate 16 14 Respiratory Effort Respiratory Pattern Blood Pressure 105/54 L 107/72 Blood Pressure Mean 71 83 Pulse Ox 96 99 Oxygen Delivery Method Room Air MDM MDM MDM Narrative Medical decision making narrative: Patient is a 83-year-old male who presented to the emergency department the chief complaint of generalized fatigue and overall not feeling well. On the differential diagnose includes but not limited to cardiac arrhythmia, electrolyte abnormality, hypothyroidism. Once workup is obtained reviewed he will be reevaluated. Patient CBC reviewed showed no evidence leukocytosis white blood count normal at 10.3, hemoglobin 13.2, platelet count was 138. Patient sodium was 144, potassium normal 3.8, creatinine was 1.42 however he has underlying chronic kidney disease this is around his baseline, magnesium level was 2.2, troponin was 90 with a delta troponin obtained 90. Patient's EKG reviewed showed atrial flutter with variable block at a rate of 50 bpm. Patient TSH normal 3.28, T4 and T3 were normal at 1.50 and 2.8 respectively. Patient's chest x-ray reviewed by myself and by radiology showed no acute cardiopulmonary processes. Discussed case with on-call hash slinger Dr. Marin and since the patient is feeling extremely weak fatigued and overall not well with these findings and we do not have electrophysiology to place a pacemaker he recommends transfer. Patient had previous stents done at [facility] will reach out to them for transfer. Discussed the case with hash slinger Dr. Newman who states that they will accept the patient for transfer. Transfer center said that the accepting physician was Dr. Rivas. Patient notified as well as significant other bedside they are agreeable with plan all question concerns answered. Lab Data Labs: Laboratory Results - last 24 hr 08/24/24 08/24/24 04:13 06:11 WBC 10.3 RBC 4.08 L Hgb 13.2 Hct 39.9 L MCV 97.8 H MCH 32.4 H MCHC 33.1 RDW Std Deviation 51.7 H RDW Coeff of Maura 14.3 Plt Count 138 L MPV 10.9 Immature Gran % (Auto) 0.400 Neut % (Auto) 51.8 Lymph % (Auto) 35.7 Coles % (Auto) 10.2 H Eos % (Auto) 1.5 Baso % (Auto) 0.4 Absolute Neuts (auto) 5.3 Absolute Lymphs (auto) 3.67 Nucleated RBC % 0 Sodium 144 Potassium 3.8 Chloride 106 Carbon Dioxide 22.9 Anion Gap 15 BUN 28 H Creatinine 1.42 H Estim Creat Clear Calc 47.01 L Est GFR (MDRD) Non-Af 49 L BUN/Creatinine Ratio 19.6 Glucose 138 H Calcium 9.4 Magnesium 2.2 Troponin T High Sens 90 H* Troponin T Hi Sens 2 Hr 90 H* TSH 3.280 Free T4 1.50 H Free T3 pg/dL 2.8 Radiography Diagnostic Testing: Clinical Impression(s) from Imaging Studies Chest X-Ray 08/24/24 04:30 IMPRESSION: No evidence of acute cardiopulmonary disease. Note of an age indeterminate [id number] vertebral body height loss, compression deformity upper lumbar spine what may be L1 or L2 on the lateral view, clinically correlate. Reading Location: [facility] Discharge Plan Triage Chief Complaint: General Illness ED Provider: Juancho Valle Dx/Rx/DC Orders Clinical Impression: Generalized weakness, Fatigue, Atrial flutter, Bradycardia, AV heart block Prescriptions: No Action omega-3 fatty acids [Fish Oil Concentrate] 1,000 mg capsule 1,000 mg PO DAILY cinnamon bark [Cinnamon] 500 mg capsule 500 mg PO DAILY levothyroxine 25 mcg tablet 25 mcg PO DAILY losartan 100 mg tablet 100 mg PO DAILY Qty: 90 3RF nitroglycerin 0.4 mg tablet, sublingual 0.4 mg SUBLINGUAL Q5-15M PRN (Reason: chest pain) Qty: 25 3RF cholecalciferol (vitamin D3) 50 mcg (2,000 unit) capsule 50 mcg PO DAILY furosemide 40 mg tablet 40 mg PO DAILY Qty: 90 3RF famotidine 20 mg tablet 20 mg PO BID Qty: 60 5RF atenolol 50 mg tablet 50 mg PO QDAY Qty: 90 3RF Primary Care Provider: Rajesh Caal NP Referrals: Rajesh Caal [employer], [employer] [Primary Care Provider] - Print Language: Guinean Disposition Disposition: DC/Tx to Another Type of HCF
[2024-08-24 06:00] LABS: Anion Gap 15 (5-15); BUN 28 mg/dL (4-19); BUN/Creat Ratio 19.6 RATIO (10-20); Calcium,Total 9.4 mg/dL (7.6-11.0); Carbon Dioxide 22.9 mmol/L (21.0-32.0); Chloride 106 mmol/L (98-108); Creatinine, Serum 1.42 mg/dL (0.70-1.20); EST Glomerular Filtration Rate 49 (>60); Estimated Creatinine Clearance 47.01 ml/min (50-250); Free T3 2.8 pg/mL (2.18-3.98); Glucose 138 mg/dL (70-99); Magnesium 2.2 mg/dL (1.5-2.2); Potassium 3.8 mmol/L (3.3-5.1); Sodium Level 144 mmol/L (133-145)
[2024-08-24 06:01] LABS: Troponin T High Sensitivity 90 ng/L (<=22)
[2024-08-24 07:18] LABS: Troponin T High Sens 2 HR 90 ng/L (<=22)
[2024-08-24 10:11] LABS: Troponin T High Sens 4 HR 92 ng/L (<=22)
--- NOTE | 2024-08-24 10:12 | ED.RN ---
Critical Troponin of [address] Naik notified.
--- NOTE | 2024-08-24 12:07 | ED.RN ---
CALLED PHYSICIANS AT 1206 FOR [facility] STATES THEY ARE ON SCENE.
--- NOTE | 2024-08-24 13:28 | ED.RN ---
Attempted to call report, no answer.
== END 2024-08-24 13:04 | disposition other institution (70) ==
PROVIDERS: Emergency Provider Emergency Medicine; PCP Nurse Practitioner Family; Visit Provider Emergency Medicine
DX: R53.1 Weakness (principal); I48.92 Unspecified atrial flutter; I48.0 Paroxysmal atrial fibrillation; R53.83 Other fatigue; N18.9 Chronic kidney disease, unspecified; I25.10 Atherosclerotic heart disease of native coronary artery without angina pectoris; Z87.891 Personal history of nicotine dependence; E78.5 Hyperlipidemia, unspecified; I12.9 Hypertensive chronic kidney disease with stage 1 through stage 4 chronic kidney disease, or unspecified chronic kidney disease; R00.1 Bradycardia, unspecified; I44.30 Unspecified atrioventricular block; E03.9 Hypothyroidism, unspecified
CPT/HCPCS: 71046; 80048; 83735; 84439; 84443; 84481; 84484; 85025; 93005; 99285; A4216

== ENCOUNTER 2024-09-03 06:15 | Emergency (ER) | payer MEDICARE, SELFPAY ==
[2024-09-03] VITALS (8 sets, daily range): BP systolic 135–159; BP diastolic 62–81; PULSE 50–89; RESP 14–19; TEMP 36.4–36.6; O2SAT 97–99; BMI 36.6
--- OUTSIDE RECORDS SUMMARY | 2024-09-03 07:25 | XMS RPT_ITS | CCD ---
Author Organization [facility] Care Team Providers Care Farmworker Fruit Name Role Phone Ten LITHOGRAPH OPERATOR, LITHOGRAPH OPERATOR-C Shanon Feliciano Primary Care Pr ovider Ten LITHOGRAPH OPERATOR, LITHOGRAPH OPERATOR-C Shanon Feliciano Referring Provi makayla Cali LITHOGRAPH OPERATOR, LITHOGRAPH OPERATOR-C Amalia Attending Provider Ten LITHOGRAPH OPERATOR, LITHOGRAPH OPERATOR-C Shanon Feliciano Primary Care Pr ovider Dr. Daniele Hammer Emergency Provider Dr. Liberty Dan Admit Provider Dr. Liberty Dan Other Provider Dr. Sonia Vega Other Provider Dr. Enrike Peterson Other Provider Dr. Brandon Silva Other Provider Pedrito, Dr. Chang Attending Provider Dr. Diann Choi Referring Provider Dr. Liberty Dan Attending Provider Dr. Angelia Mack Attending Provider Dr. Liberty Dan Referring Provider Dr. Sonia Vega Attending Provider Dr. Enrike Peterson Attending Provider Dr. Brandon Silva Attending Provider Dr. Enrike Peterson Referring Provider Dr. Papa Morgan Other Provider Dr. Papa Morgan Attending Provider Kerwin LITHOGRAPH OPERATOR, LITHOGRAPH OPERATORYari Conrad Attending Provider Dr. Diann Choi Attending Provider Dr. Diann Choi Other Provider Dr. Papa Morgan Referring Provider Dr. Souleymane Stearns Other Provider Ten LITHOGRAPH OPERATOR, LITHOGRAPH OPERATOR-C Shanon Braden Referring Provi makayla MELVI Antonio Attending Provider Ten LITHOGRAPH OPERATOR, LITHOGRAPH OPERATOR-C Shanon Braden Primary Care Pr ovider Halima JARRETT, LITHOGRAPH OPERATOR-C Vanessa Pena Attending Provider [phone] Ten LITHOGRAPH OPERATOR, LITHOGRAPH OPERATOR-C Shanon Braden Primary Care Pr ovider Ten LITHOGRAPH OPERATOR, LITHOGRAPH OPERATOR-C Shanon Braden Referring Provi makayla MELVI Antonio Attending Provider Dr. Bernardo Major Attending Provider Faulk LITHOGRAPH OPERATOR, LITHOGRAPH OPERATOR-C Shanon Braden Primary Care Pr ovider Faulk LITHOGRAPH OPERATOR, LITHOGRAPH OPERATOR-C Shanon Braden Referring Provi makayla Faulk LITHOGRAPH OPERATOR, LITHOGRAPH OPERATOR-C Shanon Braden Primary Care Pr ovider Faulk LITHOGRAPH OPERATOR, LITHOGRAPH OPERATOR-C Shanon Braden Referring Provi makayla Roof LITHOGRAPH OPERATOR, KOLBY-Liv Conrad Attending Provider Dr. Bernardo Major Attending Provider [phone] Faulk LITHOGRAPH OPERATOR, LITHOGRAPH OPERATOR-C Shanon Braden Primary Care Pr ovider Ten LITHOGRAPH OPERATOR, LITHOGRAPH OPERATOR-C Shanon Braden Referring Provi makayla Kerwin LITHOGRAPH OPERATOR, RUSS Conrad Attending Provider Dr. Bernardo Major Attending Provider Ten LITHOGRAPH OPERATOR, LITHOGRAPH OPERATOR-C Shanon Braden Primary Care Pr ovider Faulk LITHOGRAPH OPERATOR, LITHOGRAPH OPERATOR-C Shanon Feliciano Referring Provi makayla Faulk LITHOGRAPH OPERATOR-C, Shanon Feliciano Primary Care Provi makayla Faulk LITHOGRAPH OPERATOR-C, Shanon Feliciano Attending Provider Faulk LITHOGRAPH OPERATOR-C, Shanon Feliciano Referring Provider Eddie MOTA, Dr. Elam Attending Provider Dr. Juancho Valle DO Emergency Provider Faulk LITHOGRAPH OPERATOR, Shanon Feliciano Referring Unav ailable Papa Morgan Attending Unavailable Faulk LITHOGRAPH OPERATOR, Shanon Feliciano Primary Care Unav ailable Faulk LITHOGRAPH OPERATOR, Shanon Feliciano Attending Unav ailable Faulk LITHOGRAPH OPERATOR, Shanon Feliciano Referring Unav ailable Faulk LITHOGRAPH OPERATOR, Shanon Feliciano Primary Care Unav ailable Juancho Valle Attending Unavailable Faulk LITHOGRAPH OPERATOR, Shnaon Feliciano Primary Care Unav ailable Faulk LITHOGRAPH OPERATOR, Shanon Feliciano Attending Unav ailable Ten LITHOGRAPH OPERATOR, Shanon Feliciano Referring Unav ailable Faulk LITHOGRAPH OPERATOR, Shanon Feliciano Primary Care Unav ailable Faulk LITHOGRAPH OPERATOR, Shanon Feliciano Referring Unav ailable Faulk LITHOGRAPH OPERATOR, Shanon Feliciano Primary Care Unav ailable Bernardo Major Attending Unavailable Ten LITHOGRAPH OPERATOR, Shanon Feliciano Attending Unav ailable Faulk LITHOGRAPH OPERATOR, Shanon Feliciano Referring Unav ailable Ten LITHOGRAPH OPERATOR, Shanon Feliciano Primary Care Unav ailable Ten LITHOGRAPH OPERATOR, Shanon Feliciano Attending Unav ailable Faulk LITHOGRAPH OPERATOR, Shanon Feliciano Referring Unav ailable Ten LITHOGRAPH OPERATOR, Shanon Feliciano Primary Care Unav ailable Faulk LITHOGRAPH OPERATOR, Shanon Feliciano Primary Care Unav ailable Last Camilo Attending Unavailable FriendBernardo Referring Unavailable Ten LITHOGRAPH OPERATOR, Shanon Feliciano Primary Care Unav ailable Last Camilo Attending Unavailable Bernardo Major Referring Unavailable EDA RIVAS Admitting Unavailable NONE, PCP Referring Unavailable TEN, SHANON Primary Care Unavailable MARJORIE FOX Attending Unavailable Allergies Allergy Classification Reported Allergen(s) Allergy Type Date of Onset Reaction(s) Facility (10 sources) Amiodarone Drug Allergy 3 Dizzy and GI upset, [facility]B [facility] Comment on above: Patient states that he is not allergic to amiodarone (1 source) Amiodarone Drug Allergy 4 [facility] Medications Current Medications Medication Drug Class(es) Dates Sig (Normalized) Sig (Original) atenolol 50 mg oral tablet (20 sources) beta-Adrenergic Redd Start: 08-07-2024 End: 08-07-2024 take 1 tablet by mouth once daily Atenolol 50 mg tablet Active 50 mg PO daily August 07, 2024 3:31pm Start: 09-21-2022 End: 02-09-2023 Atenolol 50 mg tablet Discon tinued mg PO September 21, 2022 12:00am February 09, 2023 2:39pm Start: 09-21-2022 End: 08-07-2024 take 1 tablet by mouth twice daily Atenolol 50 mg tablet Discontinued 50 mg PO TWICE A DAY February 09, 2023 2:36pm August 07, 2024 3:02pm Start: 09-21-2022 End: 02-09-2023 Atenolol Discontinued MG PO September 21, 2022 12:00am February 09, 2023 2:39pm Start: 09-29-2013 End: 05-02-2022 take 1 tablet by mouth twice daily Atenolol 50 mg tablet Discontinued 50 mg PO TWICE A DAY 180 May 03, 2018 3:13pm May 02, 2022 4:01pm cholecalciferol 0.05 mg oral capsule (4 sources) Vitamin D Start: 07-26-2023 take 1 capsule by mouth once daily Cholecalciferol (Vitamin D3) 50 mcg (2,000 unit) capsule Active 50 ug PO DAILY July 26, 2023 12:00am cinnamon bark 500 mg oral capsule (15 sources) Start: 12-08-2021 take 1 capsule by mouth once daily Cinnamon Bark (Cinnamon) 500 mg capsule Active 500 mg PO DAILY December 08, 2021 12:00am furosemide 40 mg oral tablet (20 sources) Loop Diuretic Start: 03-22-2023 End: 04-07-2024 take 1 tablet by mouth once daily Furosemide 40 mg tablet Active 40 mg PO DAILY April 07, 2024 1:54pm Start: 02-19-2023 End: 03-22-2023 take 1 tablet by mouth twice daily Furosemide 40 mg tablet Discontinued 40 mg PO TWICE A DAY February 19, 2023 3:18pm March 22, 2023 3:18pm Start: 06-07-2021 End: 02-19-2023 take 1 tablet by mouth once daily Furosemide 40 mg tablet Discontinued 0 .ROUTE .COMPLEX August 22, 2022 10:18am February 19, 2023 3:18pm Take 1 tablet by mouth once daily Start: 09-30-2020 End: 06-07-2021 take 1 tablet by mouth twice daily Furosemide (Lasix) 40 mg tablet Discontinued 40 mg PO TWICE A DAY September 30, 2020 12:00am June 07, 2021 1:25pm Start: 10-02-2019 End: 10-07-2019 take 1 tablet by mouth once daily as needed Furosemide 20 mg tablet Discontinued 20 mg PO DAILY as needed October 02, 2019 12:00am October 07, 2019 6:31pm levothyroxine sodium 0.025 mg oral tablet (8 sources) l-Thyroxine Start: 02-09-2023 take 1 tablet by mouth once daily Levothyroxine 25 mcg tablet Active 25 ug PO DAILY February 09, 2023 1:00am losartan potassium 100 mg oral tablet (20 sources) Angiotensin 2 Receptor Redd Start: 02-19-2023 End: 02-19-2023 take 1 tablet by mouth once daily Losartan 100 mg tablet Active 100 mg PO DAILY February 19, 2023 3:18pm Start: 02-09-2023 End: 02-19-2023 Losartan 100 mg tablet Disco ntinued 50 mg PO DAILY February 09, 2023 3:02pm February 19, 2023 3:18pm Start: 02-09-2023 End: 02-19-2023 take 50 mg by mouth once daily Losartan Discontinued 5 0 MG PO DAILY February 09, 2023 3:02pm February 19, 2023 3:18pm Start: 09-21-2022 End: 02-09-2023 take 1 tablet by mouth once daily Losartan 100 mg tablet Discontinued 100 mg PO DAILY February 09, 2023 2:37pm February 09, 2023 3:09pm Start: 09-21-2022 End: 02-09-2023 Losartan Discontinued MG PO September 21, 2022 12:00am February 09, 2023 2:39pm Start: 06-20-2022 End: 07-14-2022 take 1 tablet by mouth once daily Losartan 50 mg tablet Discontinued 50 mg PO DAILY June 20, 2022 12:00am July 14, 2022 3:13pm Start: 12-07-2015 End: 05-02-2022 take 1 tablet by mouth once daily Losartan 100 mg tablet Discontinued 100 mg PO DAILY May 03, 2018 3:14pm May 02, 2022 4:02pm Purchase-3 Fatty Acids (Fish Oil Concentrate) 1,000 mg capsule (16 sources) Start: 09-30-2020 take 1 capsule by mouth once daily Purchase-3 Fatty Acids (Fish Oil Concentrate) 1,000 mg capsule Active 1000 MG PO DAILY September 30, 2020 10:26am Start: 09-30-2020 take 1 capsule by mo uth once daily Purchase-3 Fatty Acids (Fish Oil Concentrate) 1,000 mg capsule Active 1000 mg PO DAILY September 30, 2020 12:00am Start: 09-30-2020 take 1 capsule by mo uth once daily Purchase-3 Fatty Acids (Fish Oil Concentrate) 1,000 mg capsule Active 1000 MG PO DAILY September 29, 2020 11:00pm Start: 09-30-2020 take 1 capsule by mo uth once daily Purchase-3 Fatty Acids (Fish Oil Concentrate) 1,000 mg capsule Active 1000 MG PO DAILY September 30, 2020 12:00am Completed/Discontinued Medications Medication Drug Class(es) Dates Sig (Normalized) Sig (Original) amiodarone hydrochloride 200 mg oral tablet (20 sources) Antiarrhythmic Start: 09-21-2022 End: 02-09-2023 take 1 tablet by mouth once daily Amiodarone 200 mg tablet Discontinued 200 mg PO DAILY September 21, 2022 12:00am February 09, 2023 2:37pm Start: 05-02-2022 End: 08-01-2022 take 1 tablet by mouth once daily Amiodarone 200 mg tablet Discontinued 200 mg PO DAILY July 28, 2022 10:47am August 01, 2022 9:41am apixaban 5 mg oral tablet (12 sources) Factor Xa Inhibitor Start: 09-21-2022 End: 10-05-2022 take 1 tablet by mouth twice daily Apixaban (Eliquis) 5 mg tablet Discontinued 5 mg PO TWICE A DAY September 21, 2022 12:00am October 05, 2022 4:15pm aspirin 81 mg delayed release oral tablet (16 sources) Platelet Aggregation Inhibitor, Nonsteroidal Anti-inflammatory Drug Start: 03-22-2017 End: 06-08-2022 take 1 tablet by mouth once daily Aspirin (Adult Aspirin Regimen) 81 mg tablet,delayed release (DR/EC) Discontinued 81 mg PO daily March 22, 2017 1:00am June 08, 2022 9:46am On Hold: Resume on 05/15/22. atorvastatin 80 mg oral tablet (20 sources) HMG-CoA Reductase Inhibitor Start: 03-22-2017 End: 08-07-2024 take 1 tablet by mouth once daily Atorvastatin 80 mg tablet Discontinued 80 mg PO daily July 28, 2022 10:47am February 19, 2023 3:20pm cephalexin 500 mg oral tablet (8 sources) Cephalosporin Antibacterial Start: 02-09-2023 End: 02-19-2023 take 1 tablet by mouth three times daily Cephalexin 500 mg tablet Discontinued 500 mg PO THREE TIMES A DAY 22 01February 09, 2023 1:00am February 18, 2023 1:00am February 19, 2023 1:04am clopidogrel 75 mg oral tablet (20 sources) [id number] Platelet Inhibitor Start: 10-05-2022 End: 08-07-2024 take 1 tablet by mouth once daily Clopidogrel 75 mg tablet Discontinued 75 mg PO DAILY February 18, 2024 1:52pm August 07, 2024 3:01pm Start: 03-22-2017 End: 09-21-2022 take 1 tablet by mouth once daily Clopidogrel (Plavix) 75 mg tablet Discontinued 75 mg PO daily December 03, 2020 10:24am December 08, 2021 1:44pm colestipol hydrochloride 1000 mg oral tablet (12 sources) Bile Acid Sequestrant Start: 08-22-2022 End: 02-09-2023 Colestipol 1 gram tablet Discontinued 1 g PO DAILY August 22, 2022 12:00am February 09, 2023 2:38pm avoid other meds 1 hr prior to and 4 hrs after colestipol docusate sodium 100 mg oral capsule (13 sources) Start: 05-02-2022 End: 08-17-2022 take 1 capsule by mouth twice daily Docusate Sodium 100 mg Capsule Discontinued 100 mg PO TWICE A DAY 0 May 02, 2022 1:00am August 17, 2022 8:31am famotidine 20 mg oral tablet (16 sources) Histamine-2 Receptor Antagonist Start: 05-17-2023 End: 07-10-2024 take 1 tablet by mouth twice daily Famotidine 20 mg tablet Discontinued 20 mg PO TWICE A DAY January 08, 2024 7:54am July 10, 2024 3:55pm ferrous sulfate 325 mg oral tablet (13 sources) Start: 05-02-2022 End: 08-07-2024 take 1 tablet by mouth three times daily at mealtime Ferrous Sulfate (Ferosul) 325 mg (65 mg iron) Tablet Discontinued 325 mg PO 3 TIMES DAILY WITH MEALS 0 May 02, 2022 1:00am August 07, 2024 2:35pm hydroCHLOROthiazide 25 mg oral tablet (20 sources) Thiazide Diuretic Start: 10-07-2019 End: 09-30-2020 take 1 tablet by mouth once daily Hydrochlorothiazide 25 mg tablet Discontinued 25 mg PO DAILY 90 September 30, 2020 10:25am September 30, 2020 10:41am Start: 10-01-2018 End: 10-02-2019 take 1 tablet by mouth once daily in the morning Hydrochlorothiazide 25 mg tablet Discontinued 25 mg PO EVERY MORNING October 01, 2018 11:04am October 02, 2019 10:00am Start: 09-28-2017 End: 10-01-2018 Hydrochlorothiazide 25 mg ta blet Discontinued 12.5 mg PO EVERY MORNING 60 May 03, 2018 3:13pm October 01, 2018 11:04am Start: 09-28-2017 End: 10-01-2018 take 12.5 mg by mouth once daily in the morning Hydrochlorothiazide Discontinued 12.5 MG PO EVERY MORNING 60 May 03, 2018 3:13pm October 01, 2018 11:04am linezolid 600 mg oral tablet (13 sources) Oxazolidinone Antibacterial Start: 05-02-2022 End: 06-08-2022 take 5 tablets by mouth twice daily Linezolid (Zyvox) 600 mg tablet Discontinued 600 mg PO TWICE A DAY May 02, 2022 1:00am June 08, 2022 9:46am To complete 5 more days of treatment metoprolol tartrate 50 mg oral tablet (20 sources) beta-Adrenergic Redd Start: 05-02-2022 End: 09-21-2022 take 1 tablet by mouth twice daily Metoprolol Tartrate 50 mg tablet Discontinued 50 mg PO TWICE A DAY June 29, 2022 4:03pm September 21, 2022 2:47pm niacin 500 mg oral tablet (15 sources) Nicotinic Acid Start: 12-08-2021 End: 08-07-2024 take 1 tablet by mouth once daily Niacin 500 mg tablet Discontinued 500 mg PO DAILY December 08, 2021 12:00am August 07, 2024 3:01pm nitroglycerin 0.4 mg sublingual tablet (20 sources) Nitrate Vasodilator Start: 03-22-2017 End: 02-19-2023 Nitroglycerin 0.4 mg tablet, sublingual Discontinued 0.4 mg SL every 5 to 15 minutes as needed for chest pain June 07, 2021 1:54pm February 19, 2023 3:29pm Start: 03-22-2017 End: 02-19-2023 Nitroglycerin Discontinued 0 .4 MG SL every 5 to 15 minutes June 07, 2021 1:54pm February 19, 2023 3:29pm Purchase-3 Fatty Acids (12 sources) Start: 09-29-2013 End: 03-22-2017 take 1000 mg by mouth once daily Purchase-3 Fatty Acids Discontinued 1000 MG PO DAILY September 29, 2013 9:49am March 22, 2017 5:59pm Start: 09-29-2013 End: 03-22-2017 take 1000 mg by mouth once daily Purchase-3 Fatty Acids Discontinued 1000 MG PO DAILY September 28, 2013 11:00pm March 22, 2017 4:59pm Start: 09-29-2013 End: 03-22-2017 take 1000 mg by mouth once daily Purchase-3 Fatty Acids Discontinued 1000 MG PO DAILY September 29, 2013 12:00am March 22, 2017 5:59pm Purchase-3 Fatty Acids 500 MG capsule (4 sources) Start: 09-29-2013 End: 03-22-2017 take 1 capsule by mouth once daily Purchase-3 Fatty Acids 500 MG capsule Discontinued 1000 mg PO DAILY September 29, 2013 12:00am March 22, 2017 5:59pm omeprazole 20 mg delayed release oral capsule (16 sources) Proton Pump Inhibitor Start: 03-22-2017 End: 06-07-2021 take 1 capsule by mouth once Omeprazole 20 mg capsule,delayed release(DR/EC) Discontinued 20 mg PO ONCE March 22, 2017 1:00am June 07, 2021 1:24pm pantoprazole 40 mg delayed release oral tablet (20 sources) Proton Pump Inhibitor Start: 08-17-2022 End: 07-26-2023 take 1 tablet by mouth once daily in the morning Pantoprazole 40 mg tablet,delayed release (DR/EC) Discontinued 40 mg PO EVERY MORNING August 17, 2022 8:29am July 26, 2023 2:55pm Start: 05-02-2022 End: 08-17-2022 take 1 tablet by mouth twice daily Pantoprazole 40 mg Tablet,Delayed Release (Dr/Ec) Discontinued 40 mg PO TWICE A DAY May 02, 2022 1:00am August 17, 2022 8:31am Needs to continue indefinitely until followed up with gastroenterology simvastatin 10 mg oral tablet (16 sources) HMG-CoA Reductase Inhibitor Start: 12-07-2015 End: 03-22-2017 take 1 tablet by mouth at bedtime Simvastatin 10 MG tablet Discontinued 10 mg PO AT BEDTIME December 07, 2015 12:00am March 22, 2017 10:12am spironolactone 25 mg oral tablet (16 sources) Aldosterone Antagonist Start: 02-09-2023 End: 11-16-2023 take 1 tablet by mouth once daily Spironolactone 25 mg tablet Discontinued 25 mg PO DAILY February 12, 2023 12:34pm November 16, 2023 10:44am sucralfate 1000 mg oral tablet (20 sources) Aluminum Complex Start: 05-17-2023 End: 08-07-2024 take 1 tablet by mouth three times daily Sucralfate 1 gram tablet Discontinued 1 g PO THREE TIMES A DAY November 07, 2023 1:57pm August 07, 2024 2:36pm Start: 05-02-2022 End: 08-17-2022 take 1 tablet by mouth 1 hour(s) before mealtime Sucralfate 1 gram Tablet Discontinued 1 g PO ONE HOURS BEFORE MEALS & BED 0 May 02, 2022 1:00am August 17, 2022 8:25am Needs to continue indefinitely until seen by gastroenterology and follow-up Problems Active Problems Problem Classification Problem Date Documented Da te Episodic/Chronic Acute and unspecified renal failure (16 sources) Injury of kidney; Translations: [Acute kidney failure, unspecified] 04-24-2022 Episodic Administrative/social admission (4 sources) Procedure needed 05-04-2022 Episodic Cardiac dysrhythmias (20 sources) Paroxysmal atrial fibrillation; Translations: [Paroxysmal atrial fibrillation] 06-08-2022 Chronic Cardiac dysrhythmias (3 sources) Bradycardia; Translations: [Bradycardia, unspecified] Onset: 08-24-2024 Episodic Chronic ulcer of skin (20 sources) Ulcer of lower extremity; Translations: [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] 05-21-2023 Chronic Conduction disorders (1 source) Atrioventricular block; Translations: [Unspecified atrioventricular block] 08-24-2024 Chronic Coronary atherosclerosis and other heart disease (20 sources) Coronary atherosclerosis; Translations: [Atherosclerotic heart disease of viejas coronary artery without angina pectoris] Chronic Deficiency and other anemia (20 sources) Anemia; Translations: [Anemia, unspecified] 04-24-2022 Episodic Deficiency and other anemia (17 sources) Anemia, unspecified; Translations: [Anemia, unspecified] 04-24-2022 Episodic Diseases of white blood cells (14 sources) Leukocytosis; Translations: [Elevated white blood cell count, unspecified] 05-04-2022 Chronic Disorders of lipid metabolism (20 sources) Hyperlipidemia; Translations: [Hyperlipidemia, unspecified] Chronic Esophageal disorders (20 sources) Gastroesophageal reflux disease; Translations: [Gastro-esophageal reflux disease without esophagitis] 08-17-2022 Chronic Essential hypertension (20 sources) Essential hypertension; Translations: [Essential (primary) hypertension] Onset: Chronic Fluid and electrolyte disorders (16 sources) Metabolic acidosis, increased anion gap (IAG); Translations: [High anion gap metabolic acidosis] 04-24-2022 Episodic Gastrointestinal hemorrhage (16 sources) Gastrointestinal hemorrhage; Translations: [Gastrointestinal hemorrhage, unspecified] 04-24-2022 Episodic Hypertension with complications and secondary hypertension (1 source) Hypertensive chronic kidney disease with stage 1 through stage 4 chronic kidney disease, or unspecified chronic kidney disease; Translations: [Hypertensive chronic kidney disease with stage 1 through stage 4 chronic kidney disease, or unspecified chronic kidney disease] Onset: Chronic Malaise and fatigue (2 sources) Fatigue; Translations: [Other fatigue] 08-24-2024 Episodic Other circulatory disease (7 sources) Peripheral vascular disease; Translations: [Other specified peripheral vascular diseases] 05-30-2023 Chronic Other circulatory disease (6 sources) Other specified peripheral vascular diseases; Translations: [Other specified peripheral vascular diseases] Onset: 4 06-24-2023 Chronic Other connective tissue disease (8 sources) History of total hip arthroplasty; Translations: [Presence of right artificial hip joint] 05-21-2023 Chronic Other connective tissue disease (4 sources) Presence of right artificial hip joint; Translations: [Hip joint replacement] 05-24-2023 Chronic Other connective tissue disease (8 sources) Swelling of lower limb; Translations: [Other specified soft tissue disorders] 05-21-2023 Episodic Other connective tissue disease (4 sources) Other specified soft tissue disorders; Translations: [Swelling of limb] 05-24-2023 Episodic Other diseases of veins and lymphatics (8 sources) Lymphedema; Translations: [Lymphedema, not elsewhere classified] 05-21-2023 Chronic Other diseases of veins and lymphatics (4 sources) Lymphedema, not elsewhere classified; Translations: [Other lymphedema] 05-24-2023 Chronic Other gastrointestinal disorders (12 sources) Diarrhea; Translations: [Diarrhea, unspecified] 08-17-2022 Episodic Other gastrointestinal disorders (2 sources) Diarrhea, unspecified; Translations: [Diarrhea] 08-17-2022 Episodic Other gastrointestinal disorders (8 sources) History of upper gastrointestinal tract hemorrhage; Translations: [Personal history of other diseases of the digestive system] 05-21-2023 Episodic Other gastrointestinal disorders (4 sources) Personal history of other diseases of the digestive system; Translations: [Personal history of other diseases of digestive system] 05-24-2023 Episodic Other nutritional; endocrine; and metabolic disorders (8 sources) Obesity; Translations: [Obesity, unspecified] 05-21-2023 Chronic Other nutritional; endocrine; and metabolic disorders (8 sources) Body mass index 30+ - obesity; Translations: [Obesity, unspecified] 05-21-2023 Chronic Other nutritional; endocrine; and metabolic disorders (4 sources) Obesity, unspecified; Translations: [Obesity, unspecified] 05-24-2023 Chronic Residual codes; unclassified (8 sources) Obstructive sleep apnea syndrome; Translations: [Obstructive sleep apnea (adult) (pediatric)] 05-21-2023 Chronic Residual codes; unclassified (4 sources) Obstructive sleep apnea (adult) (pediatric); Translations: [Obstructive sleep apnea (adult)(pediatric)] 05-24-2023 Chronic Residual codes; unclassified (8 sources) Edema of left lower limb; Translations: [Localized edema] 05-21-2023 Episodic Residual codes; unclassified (8 sources) Edema of right lower limb; Translations: [Localized edema] 05-21-2023 Episodic Residual codes; unclassified (9 sources) Edema; Translations: [Edema, unspecified] 02-19-2023 Episodic Residual codes; unclassified (8 sources) Dependent edema; Translations: [Edema, unspecified] 05-21-2023 Episodic Residual codes; unclassified (8 sources) Edema, unspecified; Translations: [Edema] 02-09-2023 Episodic Residual codes; unclassified (4 sources) Localized edema; Translations: [Edema] 05-24-2023 Episodic Residual codes; unclassified (4 sources) Localized edema; Translations: [Edema] 05-24-2023 Episodic Residual codes; unclassified (1 source) Illness, unspecified; Translations: [Illness, unspecified] Onset: Episodic Shock (14 sources) Hemorrhagic shock; Translations: [Other shock] 05-04-2022 Episodic Urinary tract infections (14 sources) Urinary tract infectious disease; Translations: [Urinary tract infection, site not specified] 05-01-2022 Episodic Past or Other Problems Problem Classification Problem Date Documented Da te Episodic/Chronic Coronary atherosclerosis and other heart disease (2 sources) Presence of coronary angioplasty implant and graft; Translations: [Percutaneous transluminal coronary angioplasty status] Onset: 12-07-2015 Episodic Other screening for suspected conditions (not mental disorders or infectious disease) (1 source) Encounter for screening for malignant neoplasm of prostate; Translations: [Encounter for screening for malignant neoplasm of prostate] Onset: 02-08-2024 Episodic Unclassified (10 sources) Procedure needed; Translations: [Need for intravenous access] 05-04-2022 Viral infection (16 sources) COVID-19; Translations: [Severe acute respiratory syndrome coronavirus 2 (SARS-CoV-2) detected] Onset: 03-21-2021 04-29-2021 Episodic Results Test Name Value Interpretation Reference Range Facility BASIC METABOLIC PANELon 06-0 Anion gap [Moles/Vol] 7 mmol/L Normal 3-13 [facility] Comment on above: Performed By: #### L AB15 #### Car Deliverer: REUBEN NEVES ([id number]) [facility] ([facility]) [address] [place] [address] Calcium [Mass/Vol] 8.6 mg/dL Low 8.8-10.0 [facility] Comment on above: Performed By: #### L AB15 #### Car Deliverer: REUBEN NEVES ([id number]) [facility] ([facility]) [address] [place] [address] Chloride [Moles/Vol] 111 mmol/L High 98-107 [facility] Comment on above: Performed By: #### L AB15 #### Car Deliverer: REUBEN NEVES ([id number]) [facility] ([facility]) [address] [place] [address] CO2 [Moles/Vol] 26 mmol/L Normal 23-31 [facility] Comment on above: Performed By: #### L AB15 #### Car Deliverer: REUBEN NEVES ([id number]) [facility] ([facility]) [address] [place] [address] Creatinine [Mass/Vol] 1.15 mg/dL Normal 0.72-1.25 [facility] Comment on above: Performed By: #### L AB15 #### Car Deliverer: REUBEN NEVES ([id number]) [facility]) [address] [place] [address] GLOMERULAR FILTRATION RATE ML/MIN/1.73 SQ M.PREDICTED 63.1 mL/min/1.73m*2 Normal >60.0 [facility] Comment on above: Result Comment: Calc ulation based on the Chronic Kidney Disease Epidemiology Collaboration (CKD-EPI) equation refit without adjustment for race Performed By: #### L AB15 #### Car Deliverer: REUBEN NEVES ([id number]) [facility] [address] [place] [address] Glucose [Mass/Vol] 137 mg/dL High 82-115 [facility] Comment on above: Performed By: #### L AB15 #### Car Deliverer: REUBEN NEVES ([id number]) [facility] ([facility]) [address] [place] [address] Potassium [Moles/Vol] 3.6 mmol/L Normal 3.5-5.1 [facility] Comment on above: Result Comment: [facility] potassium values may be up to 0.5 mmol/L lower than serum values. Performed By: #### L AB15 #### Car Deliverer: REUBEN NEVES ([id number]) [facility] ([facility]) [address] [place] [address] Sodium [Moles/Vol] 144 mmol/L Normal 136-145 [facility] Comment on above: Performed By: #### L AB15 #### Car Deliverer: REUBEN NEVES ([id number]) [facility] ([facility]) [address] [place] [address] Urea nitrogen [Mass/Vol] 23 mg/dL Normal 9-23 [facility] Comment on above: Performed By: #### L AB15 #### Car Deliverer: REUBEN NEVES ([id number]) [facility]) [address] [place] [address] ECG 12-LEADon 08-26-2024 ECG 12-LEAD IMPRESSION: Atrial fibrillation Consider inferior infarct, age indeterminate LOW VOLTAGE THROUGHOUT ANTERIOR INFARCT, AGE INDETERMINATE No previous ECG available for comparison Electronically Signed On 08-26-2024 16:14:00 EDT by Eda Rivas [facility] Nursing Noteon 08-26-2024 Nursing Note Discharge instructions and medication list reviewed with pt and pt's . Pt dc to home [facility] Nursing Note Pt walked around nurse's station the short route pt tolerated well, aliitle sob at the end of walk . Dr Kirkland here observing pt walking Normal [facility] Progress Noteon 08-26-2024 Progress Note Nutrition rescreen completed. Chart reviewed. Patient to be monitored and followed by the diet radiochemical technician. Normal [facility] [id number] 08-25-2024 [id number] Pt adm for tx/ eval of bradycardia. Transfer from [place]. Cardiology following- med changes done. [facility] asked to follow for possible medication assistance. Normal [facility] LIPID PANELon 08-25-2024 Cholesterol [Mass/Vol] 121 mg/dL Normal <200 [facility] Comment on above: Performed By: #### L AB18 ####Car Deliverer: REUBEN NEVES ([id number])[facility] ([facility])[address] [place] [address] Cholesterol in HDL [Mass/Vol] 27 mg/dL Low >=60 [facility] Comment on above: Performed By: #### L AB18 ####Car Deliverer: REUBEN NEVES ([id number])[facility] ([facility])[address] [place] [address] Cholesterol.total/Cholest disha in HDL [Mass ratio] 4 {ratio} Normal [facility] Comment on above: Result Comment: Ref Range: < 3 Low Risk for CHD 3-6 Mod Risk for CHD > 6 High Risk for CHD Performed By: #### L AB18 ####Car Deliverer: REUBEN NEVES ([id number])[facility] ([facility])[address] [place] [address] LOW DENSITY LIPOPROTEIN 75 mg/dL Normal 0-<100 [facility] Comment on above: Performed By: #### L AB18 ####Car Deliverer: REUBEN NEVES ([id number])[facility] ([facility])[address] [place] [address] NON-HDL CHOLESTEROL, CALCULATED 94 Normal <130 [facility] Comment on above: Performed By: #### L AB18 ####Car Deliverer: REUBEN NEVES ([id number])[facility] ([facility])[address] [place] [address] Triglyceride [Mass/Vol] 94 mg/dL Normal <150 [facility] Comment on above: Performed By: #### L AB18 ####Car Deliverer: REUBEN NEVES ([id number])[facility] ([facility])[address] [place] [address] VERY LOW DENSITY LIPOPROTEIN, CALCULATED 19 mg/dL Normal <=30 [facility] Comment on above: Performed By: #### L AB18 ####Car Deliverer: REUBEN NEVES ([id number])[facility] ([facility])[address] [place] [address] 12 Lead EKGon 08-24-2024 12 Lead EKG [facility] Cardiovascular Services [address] [place] [address] 12 Lead EKG 08/24/24 0420 MR#: [id number] Acct: [id number] Name: SOULEYMANE JOYCE Rep #: [id number] : 1940 83 From: Honorio Santiago MD Attending Dr: Status: DEP ER Ordering Dr: Juancho Valle DO Date: 08/24/24 Location: ED Sex: M C Admitted: Test Reason : DYSRHYTHMIA Blood Pressure : */* mmHG Vent. Rate : 50 BPM Atrial Rate : 286 BPM P-R Int : * ms QRS Dur : 90 ms QT Int : 472 ms P-R-T Axes : 72 4 101 degrees QTcB Int : 430 ms Atrial flutter with variable A-V block Low voltage QRS Possible Inferior infarct , age undetermined Cannot rule out Anterior infarct , age undetermined Abnormal ECG Confirmed by Honorio Santiago ([id number]), clinical editor FREDERICK QUINTANILLA ([id number]) on 08/25/2024 10:58:31 AM Referred By: TB Confirmed By: Honorio Santiago 08/25/24 1058 Date Honorio Santiago MD CC: RUSS Caal; Dr. Juancho Valle, DO Signed [facility] Absolute lymphocyte countOrd ered By: Juancho Vlale on 08-24-2024 Lymphocytes Auto (Unsp spec) [#/Vol] 3.67 10*3/uL 0.83-4.51 [facility] Absolute neutrophil countOrd ered By: Juancho Valle on 08-24-2024 Neutrophils (Bld) [#/Vol] 5.3 10*3/uL 2.0-7.7 [facility] Anion gap in Serum or Plasma Ordered By: Juancho Valle on 08-24-2024 Anion gap [Moles/Vol] 15 mmol/L - [facility] Automated lymphocyte count a s percentage of total leukocytesOrdered By: Juancho Valle on 08-24-2024 Lymphocytes/100 WBC Auto (Unsp spec) 35.7 % - [facility] BUN/creatinine ratioOrdered By: Juancho Valle on 08-24-2024 Urea nitrogen/Creatinine [Mass ratio] 19.6 mg/mg - [facility] Basic Metabolic Profile (BMP )on 08-24-2024 Potassium [Moles/Vol] 3.8 mmol/L Normal 3.5-5.1 [facility] Comment on above: Performed By: #### L 100.0100, L500.2500, L501.5200, L501.82967, L501.9520, L506.0400, L501.4021 ####[facility] [address] [place], [address] Result Comment: Plas al potassium values may be up to 0.5 mmol/L lower than serum values. Performed By: #### L AB129, LAB17 ####Car Deliverer: REUBEN NEVES ([id number])[address] BUN/CRE 19.6 RATIO Normal 01-12 [facility] Comment on above: Performed By: #### L 100.0100, L500.2500, L501.5200, L501.08421, L501.9520, L506.0400, L501.4021 ####[facility] [address] [place], [address] ECRCL 47.01 ml/min Low 50-250 [facility] Comment on above: Performed By: #### L 100.0100, L500.2500, L501.5200, L501.74038, L501.9520, L506.0400, L501.4021 ####[facility] [address] [place], [address] GAP 15 Normal 5-15 [facility] Comment on above: Performed By: #### L 100.0100, L500.2500, L501.5200, L501.30470, L501.9520, L506.0400, L501.4021 ####[facility] [address] [place], [place], [id number] Basophil percentageOrdered B y: Juancho Valle on 08-24-2024 Basophils/100 WBC (Bld) 0.4 % 0-1 [facility] CBC (HEMOGRAM)on 08-24-2024 Erythrocyte distribution width (RBC) [Ratio] 14.5 % Normal 11.5-15.0 [facility] Comment on above: Performed By: #### L AB294 ####Car Deliverer: REUBEN NEVES ([id number])[facility])[address] [place] [address] Hematocrit (Bld) [Volume fraction] 37.8 % Low 40.0-52.0 [facility] Comment on above: Performed By: #### L AB294 ####Car Deliverer: REUBEN [id number])[address] Hemoglobin (Bld) [Mass/Vol] 12.8 g/dL Low 13.0-18.0 [facility] Comment on above: Performed By: #### L AB294 ####Car Deliverer: REUBEN [id number])[facility] ([facility])[address] [place] [address] MCH (RBC) [Entitic mass] 32.5 pg Normal 26.0-34.0 [facility] Comment on above: Performed By: #### L AB294 ####Car Deliverer: REUBEN NEVES ([id number])[facility] ([facility])[address] [place] [address] MCHC 33.9 % Normal 30.5-36.0 [facility] Comment on above: Performed By: #### L AB294 ####Car Deliverer: REUBEN NEVES ([id number])[facility] ([facility])[address] [place] [address] MCV (RBC) [Entitic vol] 95.9 fL Normal 77.0-99.0 [facility] Comment on above: Performed By: #### L AB294 ####Car Deliverer: REUBEN NEVES ([id number])[facility] ([facility])[address] [place] [address] Platelet mean volume (Bld) [Entitic vol] 10.5 fL Normal 9.0-12.7 [facility] Comment on above: Performed By: #### L AB294 ####Car Deliverer: REUBEN NEVES ([id number])[facility] ([facility])[address] [place] [address] Platelets (Bld) [#/Vol] 132 10*3/uL Low 140-440 [facility] Comment on above: Performed By: #### L AB294 ####Car Deliverer: REUBEN NEVES ([id number])[facility] ([facility])[address] [place] [address] RBC (Bld) [#/Vol] 3.94 10*6/uL Low 4.40-5.90 [facility] Comment on above: Performed By: #### L AB294 ####Car Deliverer: REUBEN NEVES ([id number])[facility] ([facility])[address] [place] [address] [place] WBC (Bld) [#/Vol] 8.4 10*3/uL Normal 3.6-10.7 [facility] Comment on above: Performed By: #### L AB294 ####Car Deliverer: REUBEN NEVES ([id number])[facility] ([facility])[address] [place] [address] CBC W/Diff, Automatedon 06-0 -2024 Absolute Lymph 3.67 X10 3/uL Normal 0.83-4.51 [facility] Comment on above: Performed By: #### L 100.0100, L500.2500, L501.5200, L501.33912, L501.9520, L506.0400, L501.4021 ####[facility] [address] [place], [address] Absolute Neut 5.3 X10 3/uL Normal 2.0-7.7 [facility] Comment on above: Performed By: #### L 100.0100, L500.2500, L501.5200, L501.98553, L501.9520, L506.0400, L501.4021 ####[facility] [address] [place], [address] Basophils/100 WBC (Bld) 0.4 % Normal 0-1 [facility] Comment on above: Performed By: #### L 100.0100, L500.2500, L501.5200, L501.24780, L501.9520, L506.0400, L501.4021 ####[facility] [address] [place], [address] Eosinophils/100 WBC (Bld) 1.5 % Normal 0-5 [facility] Comment on above: Performed By: #### L 100.0100, L500.2500, L501.5200, L501.03348, L501.9520, L506.0400, L501.4021 ####[facility] [address] [place], [address] Erythrocyte distribution width (RBC) [Ratio] 14.3 % Normal 11.6-14.6 [facility] Comment on above: Performed By: #### L 100.0100, L500.2500, L501.5200, L501.78114, L501.9520, L506.0400, L501.4021 ####[facility] [address] [place], [address] Hematocrit (Bld) [Volume fraction] 39.9 % Low 40-54 [facility] Comment on above: Performed By: #### L 100.0100, L500.2500, L501.5200, L501.52652, L501.9520, L506.0400, L501.4021 ####[facility] [address] [place], [address] Hemoglobin (Bld) [Mass/Vol] 13.2 g/dL Normal 13.0-16.5 [facility] Comment on above: Performed By: #### L 100.0100, L500.2500, L501.5200, L501.05656, L501.9520, L506.0400, L501.4021 ####[facility] [address] [place], [address] IG% 0.400 Normal 0.0-0.9 [facility] Comment on above: Result Comment: IG% - Immature Granulocytes (promyelocytes, myelocytes and metamyelocytes) > 1% indicates that a LEFT SHIFT is Present. Performed By: #### L 100.0100, L500.2500, L501.5200, L501.83132, L501.9520, L506.0400, L501.4021 ####[facility] [address] [place], [address] Lymphocytes/100 WBC (Bld) 35.7 % Normal 19-41 [facility] Comment on above: Performed By: #### L 100.0100, L500.2500, L501.5200, L501.82839, L501.9520, L506.0400, L501.4021 ####[facility] [address] [place], [address] MCH (RBC) [Entitic mass] 32.4 pg High 27.0-32.0 [facility] Comment on above: Performed By: #### L 100.0100, L500.2500, L501.5200, L501.61878, L501.9520, L506.0400, L501.4021 ####[facility] [address] [place], [address] MCHC (RBC) [Mass/Vol] 33.1 g/dL Normal 32-36 [facility] Comment on above: Performed By: #### L 100.0100, L500.2500, L501.5200, L501.65170, L501.9520, L506.0400, L501.4021 ####[facility] [address] [place], [address] MCV (RBC) [Entitic vol] 97.8 fL High 80-94 [facility] Comment on above: Performed By: #### L 100.0100, L500.2500, L501.5200, L501.33905, L501.9520, L506.0400, L501.4021 ####[facility] [address] [place], [address] Monocytes/100 WBC (Bld) 10.2 % High 0-10 [facility] Comment on above: Performed By: #### L 100.0100, L500.2500, L501.5200, L501.03234, L501.9520, L506.0400, L501.4021 ####[facility] [address] [place], [address] Neutrophils/100 WBC (Bld) 51.8 % Normal 47-70 [facility] Comment on above: Performed By: #### L 100.0100, L500.2500, L501.5200, L501.57505, L501.9520, L506.0400, L501.4021 ####[facility] [address] [place], [address] Nucleated RBC (Bld) [#/Vol] 0 10*3/uL Normal 0-5 [facility] Comment on above: Performed By: #### L 100.0100, L500.2500, L501.5200, L501.36835, L501.9520, L506.0400, L501.4021 ####[facility] [address] [place], [address] Platelet mean volume (Bld) [Entitic vol] 10.9 fL Normal 6.2-12.0 [facility] Comment on above: Performed By: #### L 100.0100, L500.2500, L501.5200, L501.19741, L501.9520, L506.0400, L501.4021 ####[facility] [address] [place], [address] Platelets (Bld) [#/Vol] 138 10*3/uL Low 150-450 [facility] Comment on above: Performed By: #### L 100.0100, L500.2500, L501.5200, L501.48022, L501.9520, L506.0400, L501.4021 ####[facility] [address] [place], [address] RBC (Bld) [#/Vol] 4.08 10*6/uL Low 4.6-6.2 [facility] Comment on above: Performed By: #### L 100.0100, L500.2500, L501.5200, L501.98566, L501.9520, L506.0400, L501.4021 ####[facility] [address] [place], [address] RDW SD 51.7 fl High 35.1-43.9 [facility] Comment on above: Performed By: #### L 100.0100, L500.2500, L501.5200, L501.08452, L501.9520, L506.0400, L501.4021 ####[facility] [address] [place], [address] WBC (Bld) [#/Vol] 10.3 10*3/uL Normal 4.4-11.0 [facility] Comment on above: Performed By: #### L 100.0100, L500.2500, L501.5200, L501.43164, L501.9520, L506.0400, L501.4021 ####[facility] [address] [place], [address] COMPREHENSIVE METABOLIC PANE [facility] 08-24-2024 Albumin [Mass/Vol] 3.5 g/dL Normal 3.4-4.8 [facility] Comment on above: Performed By: #### L AB129, LAB17 ####Car Deliverer: REUBEN NEVES ([id number])[address] ALP [Catalytic activity/Vol] 68 U/L Normal 40-150 [facility] Comment on above: Performed By: #### L AB129, LAB17 ####Car Deliverer: REUBEN NEVES ([id number])[facility])[address] [place] [address] ALT [Catalytic activity/Vol] 16 U/L Normal <40 [facility] Comment on above: Performed By: #### L AB129, LAB17 ####Car Deliverer: REUBEN NEVES ([id number])[facility])[address] [place] [address] Anion gap [Moles/Vol] 12 mmol/L Normal 3-13 [facility] Comment on above: Performed By: #### L AB129, LAB17 ####Car Deliverer: REUBEN NEVES ([id number])[facility])[address] [place] [address] AST [Catalytic activity/Vol] 32 U/L Normal <34 [facility] Comment on above: Performed By: #### L AB129, LAB17 ####Car Deliverer: REUBEN NEVES ([id number])[facility] ([facility])[address] [place] [address] Bilirubin [Mass/Vol] 0.8 mg/dL Normal <1.2 [facility] Comment on above: Performed By: #### L AB129, LAB17 ####Car Deliverer: REUBEN NEVES ([id number])[facility])[address] [place] [address] Calcium [Mass/Vol] 9.2 mg/dL Normal 8.8-10.0 [facility] Comment on above: Performed By: #### L AB129, LAB17 ####Car Deliverer: REUBEN NEVES ([id number])[facility] ([facility])[address] [place] [address] Chloride [Moles/Vol] 108 mmol/L High 98-107 [facility] Comment on above: Performed By: #### L AB129, LAB17 ####Car Deliverer: REUBEN NEVES ([id number])[facility])[address] [place] [address] CO2 [Moles/Vol] 22 mmol/L Low 23-31 [facility] Comment on above: Performed By: #### L AB129, LAB17 ####Car Deliverer: REUBEN NEVES ([id number])[facility])[address] [place] [address] Creatinine [Mass/Vol] 1.43 mg/dL High 0.72-1.25 [facility] Comment on above: Performed By: #### L AB129, LAB17 ####Car Deliverer: REUBEN [id number])[facility])[address] [place] [address] GLOMERULAR FILTRATION RATE ML/MIN/1.73 SQ M.PREDICTED 48.6 mL/min/1.73m*2 Low >60.0 [facility] Comment on above: Result Comment: Calc ulation based on the Chronic Kidney Disease Epidemiology Collaboration (CKD-EPI) equation refit without adjustment for race Performed By: #### L AB129, LAB17 ####Car Deliverer: REUBEN NEVES ([id number])[facility] ([facility])[address] [place] [address] Glucose [Mass/Vol] 176 mg/dL High 82-115 [facility] Comment on above: Performed By: #### L AB129, LAB17 ####Car Deliverer: REUBEN NEVES ([id number])[facility])[address] [place] [address] Protein [Mass/Vol] 7.3 g/dL Normal 6.4-8.3 [facility] Comment on above: Performed By: #### L AB129, LAB17 ####Car Deliverer: REUBEN NEVES ([id number])[facility])[address] [place] [address] [place] Sodium [Moles/Vol] 142 mmol/L Normal 136-145 [facility] Comment on above: Performed By: #### L AB129, LAB17 ####Car Deliverer: REUBEN NEVES ([id number])[facility])[address] [place] [address] [place] Urea nitrogen [Mass/Vol] 26 mg/dL High 9-23 [facility] Comment on above: Performed By: #### L AB129, LAB17 ####Car Deliverer: REUBEN NEVES ([id number])[facility])[address] [place] [address] Carbon dioxide, total [Moles /volume] in Central venous bloodOrdered By: Juancho Valle on 08-24-2024 CO2 [Moles/Vol] 22.9 mmol/L Normal 21.0-32.0 [facility] Comment on above: Performed By: #### L 100.0100, L500.2500, L501.5200, L501.03126, L501.9520, L506.0400, L501.4021 ####[facility] [address] [place], [address] Chest PA and Lateralon 08-24 Chest PA and Lateral [facility] Imaging Services [address] [place] [address] Chest PA and Lateral MR#: [id number] Acct: [id number] Name: SOULEYMANE JOYCE Rep #: [id number] : 1940 M 83 From: Souleymane Lima MD PCP: AI HernandezC Status: PRE ER Study: Chest PA and Lateral Date of Exam: 08/24/24 Exam# [id number] Ordering Dr: Juancho Valle DO PROCEDURE: CHEST PA AND LATERAL 08/24/2024 REASON FOR EXAM: WEAK TECHNIQUE: Frontal and lateral views of the chest. 2 frontals and 2 lateral images, 4 total images COMPARISON: 04/29/2022 FINDINGS: The lungs appear clear. No pleural effusion. The cardiac and mediastinal contours appear unchanged. Ectatic thoracic aorta again noted. Bilateral AC joint degenerative changes again seen. Note of an age indeterminate cddj-vz-mnbzslvn vertebral body height loss, compression deformity upper lumbar spine what may be L1 or L2 on the lateral view. RAD/Chest PA and Lateral IMPRESSION: No evidence of acute cardiopulmonary disease. Note of an age indeterminate tzbr-mh-iydqyjhd vertebral body height loss, compression deformity upper lumbar spine what may be L1 or L2 on the lateral view, clinically correlate. Reading Location: [facility] CC: LITHOGRAPH OPERATORYari Caal; Dr. Juancho Valle DO Commercial Driver: Signed [facility] Chloride assayOrdered By: Gabe Valle on 08-24-2024 Chloride [Moles/Vol] 106 mmol/L Normal 98-108 [facility] Comment on above: Performed By: #### L 100.0100, L500.2500, L501.5200, L501.51639, L501.9520, L506.0400, L501.4021 ####[facility] [address] [place], [address] Consulton 08-24-2024 Consult Please see EP note from earlier today Normal [facility] Consult [facility] [place] [facility] [place]iology Consult Note Reason for Consult/Chief Complaint: Afib and bradycardia Referring provider: Evelyn Mejia chocolatier: Eddie in [place] History of Present Illness: Souleymane Joyce is a 83 y.o. male transferred from [place] for afib and bradycardia. He has a Hx of CAD with OM stent 2015 and normal EF, and PAF managed with rate control atenolol 50 mg daily and no OAC. He said he saw his chocolatier over a week ago and was feeling well on a routine visit but for some reason they stopped his lipid-lowering drug, oral anticoagulant and reduce his atenolol dose. He then noticed over the last week he has been feeling more fatigued and washed out. He has not had any chest pain or, increased shortness of breath, PND, orthopnea edema. Has had no palpitations. He has had no dizziness or syncope. He said he has had diagnosis of atrial fibrillation since his original myocardial infarction in 2016. He said he was on anticoagulant the entire time until a week ago when it was stopped. He did state he was in the see his primary care doctor over a year ago and was in atrial fibrillation that day and the next day was back in sinus rhythm. I do not have the specifics but that according to the patient's history. Assessment/Plan HF NYHA Class [] I [] II [] III [] IV []Unable to assess At this point it is impossible to tell whether the patient's symptoms of fatigue are related to the mild bradycardia during atrial fibrillation or whether it is due to atrial fibrillation itself. He has no idea whether he has been in atrial fibrillation persistently or whether it is paroxysmal though he did say over a year ago he was in a course of a few days in atrial fibrillation and later in sinus rhythm. It certainly possible the rhythm itself not the rate is responsible for his symptoms. For now we will hold his beta-redd. We will need to resume his anticoagulation which he has not been taken for the last week. Tomorrow we need to obtain the records from his outpatient chocolatier and sort out whether he has currently a paroxysm of A-fib or whether he has been in persistent A-fib for some time. For now we will watch him on telemetry and hold the beta-redd. Medications: Scheduled Meds[1] Infusion Medications: Continuous Meds[2] Physical Examination: Physical Exam Constitutional: General: He is not in acute distress. Appearance: Normal appearance. He is obese. He is not ill-appearing. HENT: Head: Normocephalic and atraumatic. Eyes: General: No scleral icterus. Cardiovascular: Rate and Rhythm: Bradycardia present. Rhythm irregular. Heart sounds: No murmur heard. No friction rub. No gallop. Pulmonary: Effort: Pulmonary effort is normal. Breath sounds: Normal breath sounds. No wheezing. Abdominal: General: Abdomen is flat. There is no distension. Tenderness: There is no abdominal tenderness. Musculoskeletal: Right lower leg: Edema present. Left lower leg: Edema present. Skin: General: Skin is warm and dry. Findings: Erythema present. Neurological: General: No focal deficit present. Mental Status: He is alert and oriented to person, place, and time. Psychiatric: Mood and Affect: Mood normal. Thought Content: Thought content normal. Laboratory Tests: Radiology: CXR: personally reviewed: Cardiac Tests Personally Reviewed: Last EKG No results found for this or any previous visit. Telemetry findings: afib Reports reviewed: Honorio Newman MD DATE of SERVICE: 08/24/2024 [1] [2] [facility] Emergency Department Summary on 08-24-2024 Emergency Department Summary [facility] Medical Records Department [address] [place] [address] Emergency Department Summary 08/24/24 MR#: [id number] Acct: [id number] Name: SOULEYMANE JOYCE Rep #: [id number] : 1940 83 From: Juancho Valle DO PCP: Shanon Caal NP-C Status:REG ER Location: ED HPI History of Present Illness Chief Complaint: General Illness Narrative Narrative: Patient is a 83-year-old male past medical history of paroxysmal atrial fibrillation, hypothyroidism, BPH, hyperlipidemia who presented to the emerged part with a chief complaint of generalized not feeling well overall. Patient states that he has been feeling lousy for the last several days and notes that he followed up with his primary care physician last week and noted that they could not find any acute issues to correlate with his symptoms. He states that he also recently followed up with his chocolatier Dr. Morgan who took him off his statin, Plavix, niacin and he states that he does not agree with this. Patient also noted that his atenolol was cut in half he was on 50 mg twice daily and he was told to take it once a day in the morning. [facility] Medical History Bilateral leg ulcer Dependent edema Lymphedema Leg edema, right Leg edema, left Leg swelling Obstructive sleep apnea History of upper gastrointestinal hemorrhage History of myocardial infarction Obesity (BMI 30-39.9) Paroxysmal atrial fibrillation COVID-19 virus detected (03/21/21) Obstructive sleep apnea Obesity BPH (benign prostatic hyperplasia) Essential (primary) hypertension Hyperlipidemia 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 GERD (gastroesophageal reflux disease) Syncope and collapse Cardiac arrest (11/2015) Home Medications ???Medication ???Instructions ???Recorded ???Last Taken ???Type omega-3 fatty acids 1,000 mg 1,000 mg PO DAILY 09/30/20 Unknown History capsule (Fish Oil Concentrate) cinnamon bark 500 mg capsule 500 mg PO DAILY 12/08/21 Unknown H istory (Cinnamon) levothyroxine 25 mcg tablet 25 mcg PO DAILY 02/09/23 Unknown H istory losartan 100 mg tablet 100 mg PO DAILY #90 tabs 02/19/23 Unknown Rx nitroglycerin 0.4 mg sublingual 0.4 mg sublingual Q5-15M PRN chest 02/19/23 Unknown Rx tablet pain #25 tabs cholecalciferol (vitamin D3) 50 50 mcg PO DAILY 07/26/23 Unknown H istory mcg (2,000 unit) capsule furosemide 40 mg tablet 40 mg PO DAILY #90 tabs 04/07/24 U nknown Rx famotidine 20 mg tablet 20 mg PO BID #60 tabs 07/10/24 Unk nown Rx atenolol 50 mg tablet 50 mg PO QDAY #90 tabs 08/07/24 Un known Rx Allergy/AdvReac Type Severity Reaction Status Date / Time No Known Allergies Allergy Unverified 08/07/24 14:34 Family History Father CAD (coronary artery disease) Heart disease Hypertension Myocardial infarction Brother CAD (coronary artery disease) Heart disease Hypertension Myocardial infarction Mother CAD (coronary artery disease) Heart disease Hypertension Myocardial infarction Other Diabetes Surgical History History of total right hip replacement History of coronary artery stent placement (12/07/15) History of right hip replacement (09/2013) History of hemorrhoidectomy (1972) Social History household members: spouse Smoking Status: Former smoker how long ago did patient quit smoking: Quit in his 30s, smoked since teen ( 15-20 years), < 1 ppd day. alcohol intake: former substance use type: does not use caffeine: Yes Type: tea Number of servings: 2 ROS ROS ED ROS Narrative Constitutional: Denies lightness, dizziness, fevers, chills Eyes: Denies change in vision double vision blurry vision Cardiovascular: Denies chest pain or palpitations Respiratory: Denies coughing wheezing shortness of breath Abdomen: Denies abdominal pain nausea vomit diarrhea : Denies urinary symptoms Neurological: Denies numbness, wheeze, tingling Musculoskeletal: Denies back pain Skin: Denies rashes or lesions EXAM Physical Exam Narrative Exam Narrative: General: Patient lying in bed rest comfortably did not appear to be acute distress Head: Atraumatic, normocephalic Eyes: PERRL bilaterally, EOMI bilaterally, no conjunctival injection noted Neck: Soft, supple, trachea midline Cardiovascular: Patient bradycardic with a regular rhythm Respiratory: Clear to auscultation bilaterally Abdomen: Soft, nondistended, tender to palpation Extremities: +4/5 strength of the bilateral upper and lower extremities, radial pulses +2/4 in bilateral extremities, no pedal edema on exam Neurological: (more content not included)... [facility] Eosinophil percentageOrdered By: Juancho Valle on 08-24-2024 Eosinophils/100 WBC (Bld) 1.5 % 0-5 [facility] Erythrocyte distribution wid th ratioOrdered By: Juancho Valle on 08-24-2024 Erythrocyte distribution width (RBC) [Ratio] 14.3 % 11.6-14.6 [facility] Erythrocyte distribution wid th standard deviationOrdered By: Juancho Valle on 08-24-2024 Erythrocyte distribution width (RBC) [Ratio] 51.7 fl High 35.1-43.9 [facility] Free J0Clgfaze By: Juancho benavides on 08-24-2024 Free T3 [Mass/Vol] 2.8 pg/mL Normal 2.18-3.98 [facility] Comment on above: Performed By: #### L 100.0100, L500.2500, L501.5200, L501.19073, L501.9520, L506.0400, L501.4021 ####[facility] [address] [place], [address] Glomerular filtration rate ( GFR) estimation/1.73 sq m using serum, plasma, or whole bOrdered By: Juancho Valle on 08-24-2024 GFR/1.73 sq M.predicted among non-blacks MDRD (S/P/Bld) [Vol rate/Area] 49 mL/min/{1.73_m2} Low >60 [facility] Comment on above: mL/min/1.73m2 CKD-EP I Creatinine Equation (2020) Result Comment: mL/m in/1.73m2 CKD-EPI Creatinine Equation (2020) Performed By: #### L 100.0100, L500.2500, L501.5200, L501.89781, L501.9520, L506.0400, L501.4021 ####[facility] [address] [place], [place], [phone] Hematocrit Auto (Bld) [Volum e fraction]Ordered By: Juancho Valle on 08-24-2024 Hematocrit (Bld) [Volume fraction] 39.9 % Low 40-54 [facility] Hemoglobin measurementOrdere d By: Juancho Valle on 08-24-2024 Hemoglobin (Bld) [Mass/Vol] 13.2 g/dL 13.0-16.5 [facility] Immature granulocytes/100 WB C Auto (Bld)Ordered By: Juancho Valle on 08-24-2024 Immature granulocytes/100 WBC (Bld) 0.400 % 0.0-0.9 [facility] Comment on above: IG% - Immature Granu locytes (promyelocytes, myelocytes and metamyelocytes) > 1% indicates that a LEFT SHIFT is Present. L499.0042on 08-24-2024 Trop T High Sen 90 ng/L Invalid Interpretation Code <=22 [facility] Comment on above: Result Comment: Crit ical Result(s) Called to: Dakota RN (ER) by: Cade??Results read back by same. Performed By: #### L 509.1000, L501.9520, L502.0250, L506.0400, L100.0500, L500.4050, L500.4100, L501.9985, L506.1000, L501.9910 #### [facility] [address] [place], [address] L499.0043on 08-24-2024 Trop T High Sen 92 ng/L Invalid Interpretation Code <=22 [facility] Comment on above: Result Comment: Crit ical Result(s) Called to: Mariah ALBA (ER) by: Cade??Results read back by same. Performed By: #### L 499.0043 ####[facility] [address] [place], [address] L501.4021on 08-24-2024 Trop T High Sen 90 ng/L Invalid Interpretation Code <=22 [facility] Comment on above: Result Comment: Crit ical Result(s) Called at: 0601 by:??EPI WOODSN TO KYLIE APARICIO Results read back by same. Performed By: #### L 100.0100, L500.2500, L501.5200, L501.74532, L501.9520, L506.0400, L501.4021 ####[facility] [address] [place], [place], [id number] MCV (mean corpuscular volume ) determinationOrdered By: Juancho Valle on 08-24-2024 MCV (RBC) [Entitic vol] 97.8 fL High 80-94 [facility] Magnesiumon 08-24-2024 Magnesium [Mass/Vol] 2.2 mg/dL Normal 1.5-2.2 [facility] Comment on above: Performed By: #### L 100.0100, L500.2500, L501.5200, L501.71448, L501.9520, L506.0400, L501.4021 ####[facility] [address] [facility] [place], [address] Magnesium measurement (mass/ volume)Ordered By: Juancho Valle on 08-24-2024 Magnesium (Unsp spec) [Mass/Vol] 2.2 mg/dL 1.5-2.2 [facility] Mean corpuscular hemoglobin (MCH) determinationOrdered By: Juancho Valle on 08-24-2024 MCH (RBC) [Entitic mass] 32.4 pg High 27.0-32.0 [facility] Mean corpuscular hemoglobin concentration (MCHC) determinationOrdered By: Juancho Valle on 08-24-2024 MCHC (RBC) [Mass/Vol] 33.1 g/dL 32-36 [facility] Mean platelet volume determi nationOrdered By: Juancho Valle on 08-24-2024 Platelet mean volume (Bld) [Entitic vol] 10.9 fL 6.2-12.0 [facility] Monocyte percentageOrdered B y: Juancho Valle on 08-24-2024 Monocytes/100 WBC (Bld) 10.2 % High 0-10 [facility] Neutrophil percentageOrdered By: Juancho Valle on 08-24-2024 Neutrophils/100 WBC (Bld) 51.8 % 47-70 [facility] Nucleated red blood cell per centageOrdered By: Junacho Valle on 08-24-2024 Nucleated RBC/100 WBC (Bld) [Ratio] 0 % 0-5 [facility] Nursing Noteon 08-24-2024 Nursing Note Pt arrived from [place]. No report was called. Update given from EMS. Attempted to call pts - no answer. arrived to bedside shortly after. Pt and unsure which meds and dosages pt is currently on at home. Unable to update pts home med list. Normal [facility] Platelet countOrdered By: Gabe Valle on 08-24-2024 Platelets (Bld) [#/Vol] 138 10*3/uL Low 150-450 [facility] Potassium measurement (mass/ volume)Ordered By: Juancho Valle on 08-24-2024 Potassium (Unsp spec) [Mass/Vol] 3.8 mmol/L 3.3-5.1 [facility] RBC Auto (Bld) [#/Vol]Ordere d By: Juancho Valle on 08-24-2024 RBC (Bld) [#/Vol] 4.08 10*6/uL Low 4.6-6.2 [facility] Serum creatinine measurement (mass/volume)Ordered By: Juancho Valle on 08-24-2024 Creatinine [Mass/Vol] 1.42 mg/dL High 0.70-1.20 [facility] Comment on above: Performed By: #### L 100.0100, L500.2500, L501.5200, L501.11343, L501.9520, L506.0400, L501.4021 ####[facility] [address] [place], [place], [phone] Serum glucose measurement (m ass/volume)Ordered By: Juancho Valle on 08-24-2024 Glucose [Mass/Vol] 138 mg/dL High 70-99 [facility] Comment on above: Performed By: #### L 100.0100, L500.2500, L501.5200, L501.56751, L501.9520, L506.0400, L501.4021 ####[facility] [address] [place], [place], [phone] Serum or plasma calcium jose armando urement (mass/volume)Ordered By: Juancho Valle on 08-24-2024 Calcium [Mass/Vol] 9.4 mg/dL Normal 7.6-11.0 [facility] Comment on above: Performed By: #### L 100.0100, L500.2500, L501.5200, L501.94973, L501.9520, L506.0400, L501.4021 ####[facility] [address] [place], [place], [address] Serum or plasma urea nitroge n measurement (mass/volume)Ordered By: Juancho Valle on 08-24-2024 Urea nitrogen [Mass/Vol] 28 mg/dL High 4-19 [facility] Comment on above: Performed By: #### L 100.0100, L500.2500, L501.5200, L501.56409, L501.9520, L506.0400, L501.4021 ####[facility] [address] [place], [place], [phone] Sodium levelOrdered By: Bebeto Valle on 08-24-2024 Sodium [Moles/Vol] 144 mmol/L Normal 133-145 [facility] Comment on above: Performed By: #### L 100.0100, L500.2500, L501.5200, L501.55776, L501.9520, L506.0400, L501.4021 ####[facility] [address] [place], [place], [phone] T4 Free Directon 08-24-2024 T4 FREE DIRECT 1.50 ng/dL High 0.76-1.46 [facility] Comment on above: Performed By: #### L 509.1000, L501.9520, L502.0250, L506.0400, L100.0500, L500.4050, L500.4100, L501.9985, L506.1000, L501.9910 #### [facility] [address] [place], [address] T4 freeOrdered By: Juancho benavides on 08-24-2024 Free T4 [Mass/Vol] 1.50 ng/dL High 0.76-1.46 [facility] THYROID STIMULATING HORMONEo n 08-24-2024 THYROID STIMULATING HORMONE 2.04 uIU/mL Normal 0.35-4.94 [facility] Comment on above: Performed By: #### L AB129, LAB17 ####Car Deliverer: REUBEN NEVES ([id number])[facility] ([facility])[address] [place] [address] TSH DL <= 0.005 mIU/L QnOrde red By: Juancho Valle on 08-24-2024 TSH Qn 3.280 uIU/mL 0.300-4.200 [facility] Thyroid Stim Hormone (TSH)on 08-24-2024 TSH 3.280 uIU/mL Normal 0.300-4.200 [facility] Comment on above: Performed By: #### L 509.1000, L501.9520, L502.0250, L506.0400, L100.0500, L500.4050, L500.4100, L501.9985, L506.1000, L501.9910 #### [facility] [address] [place], [address] Troponin T.cardiac [Mass/vol ume] in Serum or Plasma by High sensitivity methodOrdered By: Juancho Valle on 08-24-2024 Troponin T.cardiac High sensitivity method [Mass/Vol] 92 ng/L High <22 [facility] Comment on above: Critical Result(s) C alled to: Mariah RN (ER) by: Cade Results read back by same. Troponin T.cardiac High sensitivity method [Mass/Vol] 90 ng/L High <22 [facility] Comment on above: Critical Result(s) C alled to: Dakota ALBA (ER) by: Cade Results read back by same. Troponin T.cardiac High sensitivity method [Mass/Vol] 90 ng/L High <22 [facility] Comment on above: Critical Result(s) C alled at: 0601 by: EPI HOGAN TO KYLIE MARKUS Results read back by same. White blood cell (WBC) count Ordered By: Juancho Valle on 08-24-2024 WBC (Bld) [#/Vol] 10.3 10*3/uL 4.4-11.0 [facility] Cardiology Visit Reporton Cardiology Visit Report [facility] [address] [place] [address] OFFICE VISIT Date of Service: 08/07/24 MR#: [id number] Acct: [id number] Name: SOULEYMANE JOYCE Rep #: [id number] : 1940 Provider: Dr. Papa Morgan MD Age/Sex: 83/M Location: [facility] [place] [place] Status: Signed HPI HPI History of Present Illness Details: SOULEYMANE JOYCE, is a 83 M who presents to the office today for a cardiovascular outpatient follow-up. He is a gentleman with a history of coronary artery disease status post ventricular fibrillation arrest who underwent cardiac catheterization with angioplasty and stenting to the circumflex artery branch in 2016. He also has a history of hypertension, hyperlipidemia, obesity. His hemoglobin was noted to be 8.3. He did undergo a GI work-up. Patient was on aspirin and Plavix prior to admission. Patient did develop hemorrhagic shock and acute kidney injury secondary to ischemic ATN with his hemorrhagic shock. During his hospitalization he did develop paroxysmal atrial fibrillation. He denies chest, arm, jaw, or neck discomfort. He denies palpitations. He states bilateral lower extremity edema is much improved. He denies claudication. He denies shortness of breath with activity, shortness of breath at rest, orthopnea, or PND. He denies chronic cough. He denies significant, sudden weight gain. He denies lightheadedness, dizziness, near-syncope, or syncope. He denies blood in urine, blood in stool, or epistaxis. He denies fever with chills. He denies myalgia. He denies fatigue. His exercise level has remained stable. Intake Vital Signs 03/22/23 13:52 07/26/23 14:40 08/07/24 14:29 Height 5 ft 6 in 5 ft 6 in 5 ft 6 in Weight: 248 lb BMI 40.0 BP 128/67 H Blood Pressure Location Lt brachial Position Sitting Respiration 16 Pulse 75 Pulse Source Monitor Intake Visit Reasons: 1 Y FU Intelligence Manager Required: No Is patient in pain?: No Allergies No Known Allergies Allergy (Unverified 08/07/24 14:34) Medications ???Medication ???Instructions ???Recorded ???Confirmed ???Type omega-3 fatty acids 1,000 mg 1,000 mg PO DAILY 09/30/20 5 History capsule (Fish Oil Concentrate) cinnamon bark 500 mg capsule 500 mg PO DAILY 12/08/21 08/07/24 History (Cinnamon) levothyroxine 25 mcg tablet 25 mcg PO DAILY 02/09/23 08/07/24 History losartan 100 mg tablet 100 mg PO DAILY #90 tabs 02/19/23 08/07/24 Rx nitroglycerin 0.4 mg sublingual 0.4 mg sublingual Q5-15M PRN chest 02/19/23 08/07/24 Rx tablet pain #25 tabs cholecalciferol (vitamin D3) 50 50 mcg PO DAILY 07/26/23 08/07/24 History mcg (2,000 unit) capsule furosemide 40 mg tablet 40 mg PO DAILY #90 tabs 04/07/24 0 08/07/24 Rx famotidine 20 mg tablet 20 mg PO BID #60 tabs 07/10/24 Rx atenolol 50 mg tablet 50 mg PO ONCE #60 tabs 08/07/24 Rx Have you fallen in the past year?: No PFSH Medical History Bilateral leg ulcer Dependent edema Lymphedema Leg edema, right Leg edema, left Leg swelling Obstructive sleep apnea History of upper gastrointestinal hemorrhage History of myocardial infarction Obesity (BMI 30-39.9) Paroxysmal atrial fibrillation COVID-19 virus detected (03/21/21) Obstructive sleep apnea Obesity BPH (benign prostatic hyperplasia) Essential (primary) hypertension Hyperlipidemia 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 GERD (gastroesophageal reflux disease) Syncope and collapse Cardiac arrest (11/2015) Surgical History History of total right hip replacement History of coronary artery stent placement (12/07/15) History of right hip replacement (09/2013) History of hemorrhoidectomy (1972) Family History Father CAD (coronary artery disease) Heart disease Hypertension Myocardial infarction Brother CAD (coronary artery disease) Heart disease Hypertension Myocardial infarction Mother CAD (coronary artery disease) Heart disease Hypertension Myocardial infarction Other Diabetes Social History household members: spouse Smoking Status: Former smoker how long ago did patient quit smoking: Quit in his 30s, smoked since teen ( 15-20 years), < 1 ppd day. alcohol intake: former substance use type: does not use caffeine: Yes Type: tea Number of servings: 2 ROS Const Const: Positive for fatigue and weakness (bilateral legs); Negative for headache(s), daytime sleepiness or difficulty sleeping ENT ENT: Negative for headache(s), dizziness or Nosebleed/epistaxis Cardio Chest Pain: No Palpitations: No (more content not included)... [facility] Albumin DL <= 20 mg/L (U) [M ass/Vol]Ordered By: Shanon Caal on 07-15-2024 Urine Random Microalbumin 17.0 mg/L NO RANGE EST. [facility] Creatinine Unsp time (U) [Ma ss/Vol]Ordered By: Shanon Caal on 07-15-2024 Creatinine (U) [Mass/Vol] 120.00 mg/dL 39.00-25 9.00 [facility] Microalb:Creat Ratio,Random URon 07-15-2024 Creatinine [Mass/Vol] 120.00 mg/dL Normal 39.00-259.00 [facility] Comment on above: Performed By: #### L 502.0250 ####[facility] [address] [place], [place], [id number] MALB:CREAT 141.7 mg/g CRE Normal [facility] Comment on above: Performed By: #### L 502.0250 ####[facility] [address] [place], [address] MICROALBUMIN,UR 17.0 mg/L Normal NO RANGE EST. [facility] Comment on above: Performed By: #### L 502.0250 ####[facility] [address] [place], [address] Microalbumin/creat ratio urO rdered By: Shanon Caal on 07-15-2024 Urine Microalbumin/Creatinine Ratio 141.7 mg/g CRE [facility] Random urine creatinine jose armando urement (mass/volume)Ordered By: Shanon Caal on 07-15-2024 Creatinine Unsp time (U) [Mass/Vol] 120.00 mg/dL 39.00-259.00 [facility] Urine albumin measurement wi detection limit of 20 mg/L or less (mass/volume)Ordered By: Shanon Caal on 07-15-2024 Albumin DL <= 20 mg/L (U) [Mass/Vol] 17.0 mg/L NO RANGE EST. [facility] Anion gap in Serum or Plasma Ordered By: Shanon Caal on 07-14-2024 Anion gap [Moles/Vol] 11 mmol/L 5- [facility] BUN/creatinine ratioOrdered By: Shanon Caal on 07-14-2024 Urea nitrogen/Creatinine [Mass ratio] 14.5 mg/mg - [facility] Bilirubin, totalOrdered By: Shanon Caal on 07-14-2024 Bilirubin [Mass/Vol] 0.69 mg/dL 0.00-1.30 [facility] CBC-Complete Blood Cnt No Di ffon 07-14-2024 Erythrocyte distribution width (RBC) [Ratio] 15.3 % High 11.6-14.6 [facility] Comment on above: Performed By: #### L 503.6030, L501.9520, L509.1000, L506.0400, L502.0250, L500.4050, L503.7505, L100.0500, L500.4100, L506.1001 ####[facility] [address] [place], [address] Hematocrit (Bld) [Volume fraction] 37.0 % Low 40-54 [facility] Comment on above: Performed By: #### L 503.6030, L501.9520, L509.1000, L506.0400, L502.0250, L500.4050, L503.7505, L100.0500, L500.4100, L506.1001 ####[facility] [address] [place], [address] Hemoglobin (Bld) [Mass/Vol] 12.4 g/dL Low 13.0-16.5 [facility] Comment on above: Performed By: #### L 503.6030, L501.9520, L509.1000, L506.0400, L502.0250, L500.4050, L503.7505, L100.0500, L500.4100, L506.1001 ####[facility] [address] [place], [place], [id number] MCH (RBC) [Entitic mass] 32.5 pg High 27.0-32.0 [facility] Comment on above: Performed By: #### L 503.6030, L501.9520, L509.1000, L506.0400, L502.0250, L500.4050, L503.7505, L100.0500, L500.4100, L506.1001 ####[facility] [address] [place], [place], [id number] MCHC (RBC) [Mass/Vol] 33.5 g/dL Normal 32-36 [facility] Comment on above: Performed By: #### L 503.6030, L501.9520, L509.1000, L506.0400, L502.0250, L500.4050, L503.7505, L100.0500, L500.4100, L506.1001 ####[facility] [address] [place], [place], [id number] MCV (RBC) [Entitic vol] 96.9 fL High 80-94 [facility] Comment on above: Performed By: #### L 503.6030, L501.9520, L509.1000, L506.0400, L502.0250, L500.4050, L503.7505, L100.0500, L500.4100, L506.1001 ####[facility] [address] [place], [address] Platelet mean volume (Bld) [Entitic vol] 10.6 fL Normal 6.2-12.0 [facility] Comment on above: Performed By: #### L 503.6030, L501.9520, L509.1000, L506.0400, L502.0250, L500.4050, L503.7505, L100.0500, L500.4100, L506.1001 ####[facility] [address] [place], [place], [phone]) Platelets (Bld) [#/Vol] 133 10*3/uL Low 150-450 [facility] Comment on above: Performed By: #### L 503.6030, L501.9520, L509.1000, L506.0400, L502.0250, L500.4050, L503.7505, L100.0500, L500.4100, L506.1001 ####[facility] [address] [place], [place], [phone]) RBC (Bld) [#/Vol] 3.82 10*6/uL Low 4.6-6.2 [facility] [facility] Comment on above: Performed By: #### L 503.6030, L501.9520, L509.1000, L506.0400, L502.0250, L500.4050, L503.7505, L100.0500, L500.4100, L506.1001 ####[facility] [address] [place], [place], [phone](402) RDW SD 54.6 fl High 35.1-43.9 [facility] Comment on above: Performed By: #### L 503.6030, L501.9520, L509.1000, L506.0400, L502.0250, L500.4050, L503.7505, L100.0500, L500.4100, L506.1001 ####[facility] [address] [place], [place], [id number] WBC (Bld) [#/Vol] 8.4 10*3/uL Normal 4.4-11.0 [facility] Comment on above: Performed By: #### L 503.6030, L501.9520, L509.1000, L506.0400, L502.0250, L500.4050, L503.7505, L100.0500, L500.4100, L506.1001 ####[facility] [address] [place], [place], [id number] Calculated total iron bindin g capacityOrdered By: Shanon Caal on 07-14-2024 Total Iron Binding Capacity 211 ug/dL Low 250-450 [facility] Calculated very low density lipoprotein (VLDL) cholesterol measurementOrdered By: Shanon Caal on 07-14-2024 Calculated very low density lipoprotein (VLDL) cholesterol measurement 27 mg/dL 5-40 [facility] VLDL Cholesterol 27 mg/dL 5-40 [facility] Carbon dioxide, total [Moles /volume] in Central venous bloodOrdered By: Shanon Caal on 07-14-2024 CO2 [Moles/Vol] 25.0 mmol/L 21.0-32.0 [facility] Chloride assayOrdered By: Lashell Caal on 07-14-2024 Chloride [Moles/Vol] 105 mmol/L 98-108 [facility] Comprehensive Metabolic Prof ilon 07-14-2024 Albumin [Mass/Vol] 4.0 g/dL Normal 3.4-4.8 [facility] Comment on above: Performed By: #### L 503.6030, L501.9520, L509.1000, L506.0400, L502.0250, L500.4050, L503.7505, L100.0500, L500.4100, L506.1001 ####[facility] [address] [place], [place], [id number] Albumin/Globulin [Mass ratio] 1.2 {ratio} Normal 0.9-2.4 [facility] Comment on above: Performed By: #### L 503.6030, L501.9520, L509.1000, L506.0400, L502.0250, L500.4050, L503.7505, L100.0500, L500.4100, L506.1001 ####[facility] [address] [place], [address] ALK PHOS 73 U/L Normal 40-129 [facility] Comment on above: Performed By: #### L 503.6030, L501.9520, L509.1000, L506.0400, L502.0250, L500.4050, L503.7505, L100.0500, L500.4100, L506.1001 ####[facility] [address] [place], [address] ALT [Catalytic activity/Vol] 13 U/L Normal <=46 [facility] Comment on above: Performed By: #### L 503.6030, L501.9520, L509.1000, L506.0400, L502.0250, L500.4050, L503.7505, L100.0500, L500.4100, L506.1001 ####[facility] [address] [place], [address] AST [Catalytic activity/Vol] 25 U/L Normal <=37 [facility] Comment on above: Performed By: #### L 503.6030, L501.9520, L509.1000, L506.0400, L502.0250, L500.4050, L503.7505, L100.0500, L500.4100, L506.1001 ####[facility] [address] [place], [address] Bilirubin [Mass/Vol] 0.69 mg/dL Normal 0.00-1.30 [facility] Comment on above: Performed By: #### L 503.6030, L501.9520, L509.1000, L506.0400, L502.0250, L500.4050, L503.7505, L100.0500, L500.4100, L506.1001 ####[facility] [address] [place], [address] BUN/CRE 14.5 RATIO Normal 10-20 [facility] Comment on above: Performed By: #### L 503.6030, L501.9520, L509.1000, L506.0400, L502.0250, L500.4050, L503.7505, L100.0500, L500.4100, L506.1001 ####[facility] [address] [place], [address] Calcium [Mass/Vol] 9.3 mg/dL Normal 7.6-11.0 [facility] Comment on above: Performed By: #### L 503.6030, L501.9520, L509.1000, L506.0400, L502.0250, L500.4050, L503.7505, L100.0500, L500.4100, L506.1001 ####[facility] [address] [place], [address] Chloride [Moles/Vol] 105 mmol/L Normal 98-108 [facility] Comment on above: Performed By: #### L 503.6030, L501.9520, L509.1000, L506.0400, L502.0250, L500.4050, L503.7505, L100.0500, L500.4100, L506.1001 ####[facility] [address] [place], [address] CO2 [Moles/Vol] 25.0 mmol/L Normal 21.0-32.0 [facility] Comment on above: Performed By: #### L 503.6030, L501.9520, L509.1000, L506.0400, L502.0250, L500.4050, L503.7505, L100.0500, L500.4100, L506.1001 ####[facility] [address] [place], [address] Creatinine [Mass/Vol] 1.30 mg/dL High 0.70-1.20 [facility] Comment on above: Performed By: #### L 503.6030, L501.9520, L509.1000, L506.0400, L502.0250, L500.4050, L503.7505, L100.0500, L500.4100, L506.1001 ####[facility] [address] [place], [address] GAP 11 Normal 5-15 [facility] Comment on above: Performed By: #### L 503.6030, L501.9520, L509.1000, L506.0400, L502.0250, L500.4050, L503.7505, L100.0500, L500.4100, L506.1001 ####[facility] [address] [place], [place], [phone] GFR/1.73 sq M.predicted among non-blacks MDRD (S/P/Bld) [Vol rate/Area] 55 mL/min/{1.73_m2} Low >60 [facility] Comment on above: Result Comment: mL/m in/1.73m2 CKD-EPI Creatinine Equation (2020) Performed By: #### L 503.6030, L501.9520, L509.1000, L506.0400, L502.0250, L500.4050, L503.7505, L100.0500, L500.4100, L506.1001 ####[facility] [address] [place], [address] Globulin (S) [Mass/Vol] 3.2 g/dL Normal 2.2-4.2 [facility] Comment on above: Performed By: #### L 503.6030, L501.9520, L509.1000, L506.0400, L502.0250, L500.4050, L503.7505, L100.0500, L500.4100, L506.1001 ####[facility] [address] [facility] [place], [address] Glucose [Mass/Vol] 113 mg/dL High 70-99 [facility] Comment on above: Performed By: #### L 503.6030, L501.9520, L509.1000, L506.0400, L502.0250, L500.4050, L503.7505, L100.0500, L500.4100, L506.1001 ####[facility] [address] [facility] [place], [address] Potassium [Moles/Vol] 4.3 mmol/L Normal 3.3-5.1 [facility] Comment on above: Performed By: #### L 503.6030, L501.9520, L509.1000, L506.0400, L502.0250, L500.4050, L503.7505, L100.0500, L500.4100, L506.1001 ####[facility] [address] [facility] [place], [address] Sodium [Moles/Vol] 140 mmol/L Normal 133-145 [facility] Comment on above: Performed By: #### L 503.6030, L501.9520, L509.1000, L506.0400, L502.0250, L500.4050, L503.7505, L100.0500, L500.4100, L506.1001 ####[facility] [address] [facility] [place], [address] T PROT 7.2 g/dL Normal 5.9-8.4 [facility] Comment on above: Performed By: #### L 503.6030, L501.9520, L509.1000, L506.0400, L502.0250, L500.4050, L503.7505, L100.0500, L500.4100, L506.1001 ####[facility] [address] [place], [place], [phone] Urea nitrogen [Mass/Vol] 19 mg/dL Normal 4-19 [facility] Comment on above: Performed By: #### L 503.6030, L501.9520, L509.1000, L506.0400, L502.0250, L500.4050, L503.7505, L100.0500, L500.4100, L506.1001 ####[facility] [address] [place], [place], [phone] Erythrocyte distribution wid th (RBC) [Ratio]Ordered By: Shanon Caal on 07-14-2024 Erythrocyte distribution width (RBC) [Entitic vol] 54.6 fL High 35.1-43.9 [facility] Erythrocyte distribution wid th ratioOrdered By: Shanon Caal on 07-14-2024 Erythrocyte distribution width (RBC) [Ratio] 15.3 % High 11.6-14.6 [facility] Erythrocyte distribution wid th standard deviationOrdered By: Shanon Caal on 07-14-2024 Erythrocyte distribution width (RBC) [Ratio] 54.6 fl High 35.1-43.9 [facility] GFR/1.73 sq M.predicted maya g non-blacks MDRD (S/P/Bld) [Vol rate/Area]Ordered By: Shanon Caal on 07-14-2024 Estimated GFR (MDRD) Non-Af Amer 55 Low >60 [facility] Comment on above: mL/min/1.73m2 CKD-EP I Creatinine Equation (2020) Glomerular filtration rate ( GFR) estimation/1.73 sq m using serum, plasma, or whole bOrdered By: Shanon Caal on 07-14-2024 GFR/1.73 sq M.predicted among non-blacks MDRD (S/P/Bld) [Vol rate/Area] 55 mL/min/{1.73_m2} Low >60 [facility] Comment on above: mL/min/1.73m2 CKD-EP I Creatinine Equation (2020) Hematocrit Auto (Bld) [Volum e fraction]Ordered By: Shanon Caal on 07-14-2024 Hematocrit (Bld) [Volume fraction] 37.0 % Low 40-54 [facility] Hemoglobin measurementOrdere d By: Shanon Caal on 07-14-2024 Hemoglobin (Bld) [Mass/Vol] 12.4 g/dL Low 13.0-16.5 [facility] Iron (Unsp spec) [Mass/Mass] Ordered By: Shanon Caal on 07-14-2024 Iron [Mass/Vol] 79 ug/dL 65-175 [facility] Iron measurement (mass/mass) Ordered By: Shanon Caal on 07-14-2024 Iron (Unsp spec) [Mass/Mass] 79 ug/dL 65-175 [facility] Iron saturation [Mass fracti on]Ordered By: Shanon Caal on 07-14-2024 Iron Saturation 37.4 % 9-55 [facility] Comment on above: Previous reported re sult: 37.0 %Edited by: TIERNEY on 07/14/24:1355 AMENDED REPORT 07/14/24 1355 IRON SATURATION previously reported as: 37.0 % Iron+Iron Binding Capacityon 07-14-2024 IRON SATURATION 37.4 Normal 9-55 [facility] Comment on above: Result Comment: AMENDED REPORT 07/14/24 1355 IRON SATURATION previously reported as: 37.0 % Performed By: #### L 503.6030, L501.9520, L509.1000, L506.0400, L502.0250, L500.4050, L503.7505, L100.0500, L500.4100, L506.1001 ####[facility] [address] [place], [address] L503.7505on 07-14-2024 Natriuretic peptide B (Bld) [Mass/Vol] 1187 pg/mL Normal <=1800 [facility] Comment on above: Result Comment: Hear t Failure Unlikely: < 300 pg/mL Heart Failure Likely < 50 Years: > 450 pg/mL 50-75 Years: > 900 pg/mL >75 Years: > 1800 pg/mL Performed By: #### L 503.6030, L501.9520, L509.1000, L506.0400, L502.0250, L500.4050, L503.7505, L100.0500, L500.4100, L506.1001 ####[facility] [address] [place], [address] LDL calc ser/plasOrdered By: Shanon Caal on 07-14-2024 Cholesterol in LDL [Mass/Vol] 53 mg/dL [facility] Comment on above: Jdbwvzbrcx=795-029 m g/dL & Higher Soky=294 mg/dL or greater LDL Cholesterol, Calculated 53 mg/dL [facility] Comment on above: Nqqvftgilh=597-272 m g/dL & Higher Kxsx=099 mg/dL or greater Laboratory - Chemistry and C hemistry - challengeOrdered By: Shanon Caal on 07-14-2024 AST [Catalytic activity/Vol] 25 U/L <38 [facility] Lipid Profileon 07-14-2024 CHOL:HDL 4.30 Normal [facility] Comment on above: Performed By: #### L 503.6030, L501.9520, L509.1000, L506.0400, L502.0250, L500.4050, L503.7505, L100.0500, L500.4100, L506.1001 ####[facility] [address] [place], [place], [phone](313) Cholesterol [Mass/Vol] 104 mg/dL Normal <=200 [facility] Comment on above: Result Comment: Chol esterol level, Desirable <200 mg/dL Borderline high cholesterol 200-239 mg/dL High cholesterol >=240 mg/dL Recommendations of the NCEP Adult Treatment Panel for the following risk-cutoff thresholds for the [place] population. Performed By: #### L 503.6030, L501.9520, L509.1000, L506.0400, L502.0250, L500.4050, L503.7505, L100.0500, L500.4100, L506.1001 ####[facility] [address] [place], [address] Cholesterol in HDL [Mass/Vol] 24 mg/dL Low [facility] Comment on above: Result Comment: Fabiana onal Cholesterol Education Program (NCEP) guidelines: <40 mg/dL: Low HDL-cholesterol (major risk factor for CHD) >= 60 mg/dL: High HDL-cholesterol (negative risk factor for CHD) HDL-cholesterol is affected by a number of factors, e.g. smoking, exercise, hormones, sex and age. Performed By: #### L 503.6030, L501.9520, L509.1000, L506.0400, L502.0250, L500.4050, L503.7505, L100.0500, L500.4100, L506.1001 ####[facility] [address] [place], [address] Cholesterol in LDL [Mass/Vol] 53 mg/dL Normal [facility] Comment on above: Result Comment: Bord iegfxq=006-015 mg/dL Higher Gruv=599 mg/dL or greater Performed By: #### L 503.6030, L501.9520, L509.1000, L506.0400, L502.0250, L500.4050, L503.7505, L100.0500, L500.4100, L506.1001 ####[facility] [address] [place], [address] Cholesterol in VLDL [Mass/Vol] 27 mg/dL Normal 5-40 [facility] Comment on above: Performed By: #### L 503.6030, L501.9520, L509.1000, L506.0400, L502.0250, L500.4050, L503.7505, L100.0500, L500.4100, L506.1001 ####[facility] [address] [place], [place], [phone] Triglyceride [Mass/Vol] 136 mg/dL Normal [facility] Comment on above: Result Comment: The drugs N-Acetylcysteine and Metamizole may falsely depress this assay. Normal range: <150 mg/dL Borderline High: 150-199 mg/dL High: 200-499 mg/dL Very High: >500 mg/dL Performed By: #### L 503.6030, L501.9520, L509.1000, L506.0400, L502.0250, L500.4050, L503.7505, L100.0500, L500.4100, L506.1001 ####[facility] [address] [place], [place], [phone] MCV (mean corpuscular volume ) determinationOrdered By: Shanon Caal on 07-14-2024 MCV (RBC) [Entitic vol] 96.9 fL High 80-94 [facility] Mean corpuscular hemoglobin (MCH) determinationOrdered By: Shanon Caal on 07-14-2024 MCH (RBC) [Entitic mass] 32.5 pg High 27.0-32.0 [facility] Mean corpuscular hemoglobin concentration (MCHC) determinationOrdered By: Shanon Caal on 07-14-2024 MCHC (RBC) [Mass/Vol] 33.5 g/dL 32-36 [facility] Mean platelet volume determi nationOrdered By: Shanon Caal on 07-14-2024 Platelet mean volume (Bld) [Entitic vol] 10.6 fL 6.2-12.0 [facility] Microalb:Creat Ratio,Random URon 07-14-2024 MALB:CREAT Normal [facility] Comment on above: Result Comment: UTO, SENT PATIENT HOME WITH CUP TO BRING BACK. Performed By: #### L 503.6030, L501.9520, L509.1000, L506.0400, L502.0250, L500.4050, L503.7505, L100.0500, L500.4100, L506.1001 ####[facility] [address] [place], [address] MICROALBUMIN,UR Normal NO RANGE EST. [facility] Comment on above: Result Comment: UTO, SENT PATIENT HOME WITH CUP TO BRING BACK. Performed By: #### L 503.6030, L501.9520, L509.1000, L506.0400, L502.0250, L500.4050, L503.7505, L100.0500, L500.4100, L506.1001 ####[facility] [address] [place], [address] UR CREAT Normal 39.00-259.00 [facility] Comment on above: Result Comment: UTO, SENT PATIENT HOME WITH CUP TO BRING BACK. Performed By: #### L 503.6030, L501.9520, L509.1000, L506.0400, L502.0250, L500.4050, L503.7505, L100.0500, L500.4100, L506.1001 ####[facility] [address] [place], [address] Natriuretic peptide.B prohor negra N-Terminal [Mass/Vol]Ordered By: Shanon Caal on 07-14-2024 Natriuretic peptide B (Bld) [Mass/Vol] 1187 pg/mL <1800 [facility] Comment on above: Heart Failure Unlike ly: < 300 pg/mLHeart Failure Likely< 50 Years: > 450 pg/mL50-75 Years: > 900 pg/mL>75 Years: > 1800 pg/mL Natriuretic peptide.B prohor negra N-Terminal [Mass/volume] in Serum or PlasmaOrdered By: Shanon Caal on 07-14-2024 Natriuretic peptide.B prohormone N-Terminal [Mass/Vol] 1187 pg/mL <1800 [facility] Comment on above: Heart Failure Unlike ly: < 300 pg/mLHeart Failure Likely< 50 Years: > 450 pg/mL50-75 Years: > 900 pg/mL>75 Years: > 1800 pg/mL No Panel InformationOrdered By: Shanon Caal on 07-14-2024 Unsaturated Iron Binding Capacity 132 ug/dL Low 228-428 [facility] PTH intactOrdered By: Simon Caal on 07-14-2024 Parathyroid Hormone (Intact) 44 pg/mL [facility] PTHINon 07-14-2024 PTH 44 pg/mL Normal [facility] Comment on above: Performed By: #### L 503.6030, L501.9520, L509.1000, L506.0400, L502.0250, L500.4050, L503.7505, L100.0500, L500.4100, L506.1001 ####[facility] [address] [place], [address] Platelet countOrdered By: Lashell Caal on 07-14-2024 Platelets (Bld) [#/Vol] 133 10*3/uL Low 150-450 [facility] Potassium (Unsp spec) [Mass/ Vol]Ordered By: Shanon Caal on 07-14-2024 Potassium [Moles/Vol] 4.3 mmol/L 3.3-5.1 [facility] Potassium measurement (mass/ volume)Ordered By: Shanon Caal on 07-14-2024 Potassium (Unsp spec) [Mass/Vol] 4.3 mmol/L 3.3-5.1 [facility] RBC Auto (Bld) [#/Vol]Ordere d By: Shanon Caal on 07-14-2024 RBC (Bld) [#/Vol] 3.82 10*6/uL Low 4.6-6.2 [facility] Screening total cholesterol/ high density lipoprotein (HDL) cholesterol ratioOrdered By: Shanon Caal on 07-14-2024 Cholesterol.total/Cholest disha in HDL [Mass ratio] 4.30 {ratio} [facility] Serum creatinine measurement (mass/volume)Ordered By: Shanon Caal on 07-14-2024 Creatinine [Mass/Vol] 1.30 mg/dL High 0.70-1.20 [facility] Serum globulin measurementOr dered By: Shanon Caal on 07-14-2024 Globulin (S) [Mass/Vol] 3.2 g/dL 2.2-4.2 [facility] Serum glucose measurement (m ass/volume)Ordered By: Shanon Caal on 07-14-2024 Glucose [Mass/Vol] 113 mg/dL High 70-99 [facility] Serum or plasma alanine duke otransferase (ALT) measurementOrdered By: Shanon Caal on 07-14-2024 ALT [Catalytic activity/Vol] 13 U/L <47 [facility] Serum or plasma albumin jose armando urement (mass/volume)Ordered By: Shanon Caal on 07-14-2024 Albumin [Mass/Vol] 4.0 g/dL 3.4-4.8 [facility] Serum or plasma albumin/glob ulin mass ratioOrdered By: Shanon Caal on 07-14-2024 Albumin/Globulin [Mass ratio] 1.2 {ratio} 0.9-2.4 [facility] Serum or plasma alkaline melyssa sphatase measurementOrdered By: Shanon Caal on 07-14-2024 ALP [Catalytic activity/Vol] 73 U/L 40-129 [facility] Serum or plasma calcium jose armando urement (mass/volume)Ordered By: Shanon Caal on 07-14-2024 Calcium [Mass/Vol] 9.3 mg/dL 7.6-11.0 [facility] Serum or plasma cholesterol in HDL measurement (mass/volume)Ordered By: Shanon Caal on 07-14-2024 Cholesterol in HDL [Mass/Vol] 24 mg/dL Low >40 [facility] Comment on above: National Cholesterol Education Program (NCEP) guidelines:<40 mg/dL: Low HDL-cholesterol (major risk factor for CHD)>= 60 mg/dL: High HDL-cholesterol (negative risk factor for CHD)HDL-cholesterol is affected by a number of factors, e.g. smoking, exercise, hormones, sex and age. Serum or plasma cholesterol measurement (mass/volume)Ordered By: Shanon Caal on 07-14-2024 Cholesterol [Mass/Vol] 104 mg/dL <201 [facility] Comment on above: Cholesterol level, D esirable <200 mg/dLBorderline high cholesterol 200-239 mg/dLHigh cholesterol >=240 mg/dLRecommendations of the NCEP Adult Treatment Panel for the following risk-cutoff thresholds for the [place] population. Serum or plasma iron saturat ion measurement (mass fraction)Ordered By: Shanon Caal on 07-14-2024 Iron saturation [Mass fraction] 37.4 % 9-55 [facility] Comment on above: Previous reported re sult: 37.0 %Edited by: TIERNEY on 07/14/24:1355 AMENDED REPORT 07/14/24 1355 IRON SATURATION previously reported as: 37.0 % Serum or plasma urea nitroge n measurement (mass/volume)Ordered By: Shanon Caal on 07-14-2024 Urea nitrogen [Mass/Vol] 19 mg/dL 4-19 [facility] Sodium levelOrdered By: Javed Caal on 07-14-2024 Sodium [Moles/Vol] 140 mmol/L 133-145 [facility] T4 Free Directon 07-14-2024 T4 FREE DIRECT 1.20 ng/dL Normal 0.76-1.46 [facility] Comment on above: Performed By: #### L 503.6030, L501.9520, L509.1000, L506.0400, L502.0250, L500.4050, L503.7505, L100.0500, L500.4100, L506.1001 ####[facility] [address] [place], [place], [phone] T4 freeOrdered By: Shanon riddle on 07-14-2024 Free T4 [Mass/Vol] 1.20 ng/dL 0.76-1.46 [facility] TSH DL <= 0.005 mIU/L QnOrde red By: Shanon Caal on 07-14-2024 Thyroid Stimulating Hormone (TSH) 2.670 uIU/mL 0.300-4.200 [facility] TSH Qn 2.670 uIU/mL 0.300-4.200 [facility] Thyroid Stim Hormone (TSH)on 07-14-2024 TSH 2.670 uIU/mL Normal 0.300-4.200 [facility] Comment on above: Performed By: #### L 503.6030, L501.9520, L509.1000, L506.0400, L502.0250, L500.4050, L503.7505, L100.0500, L500.4100, L506.1001 ####[facility] [address] [place], [address] Total proteinOrdered By: Jin Caal on 07-14-2024 Protein [Mass/Vol] 7.2 g/dL 5.9-8.4 [facility] Triglycerides measurementOrd ered By: Shanon Caal on 07-14-2024 Triglyceride [Mass/Vol] 136 mg/dL <199 [facility] Comment on above: The drugs N-Acetylcy steine and Metamizole may falsely depress this assay. Normal range: <150 mg/dLBorderline High: 150-199 mg/dLHigh: 200-499 mg/dLVery High: >500 mg/dL Vitamin D, 25-hydroxyOrdered By: Shanon Caal on 07-14-2024 Vitamin D 25-Hydroxy 35.7 ng/mL 30-100 [facility] Comment on above: Vitamin D StatusDefi ciency: <20 ng/mL (50nmol/L)Insufficiency: 20-30 ng/mL (50-75 nmol/L)Sufficiency: 30-100 ng/mL (75-250 nmol/L)Toxicity: >100 ng/mL (>250 nmol/L) Vitamin D,25 Hydroxyon 07-14 Vitamin D 25-OH 35.7 ng/mL Normal 30-100 [facility] Comment on above: Result Comment: Keily min D Status Deficiency: <20 ng/mL (50nmol/L) Insufficiency: 20-30 ng/mL (50-75 nmol/L) Sufficiency: 30-100 ng/mL (75-250 nmol/L) Toxicity: >100 ng/mL (>250 nmol/L) Performed By: #### L 503.6030, L501.9520, L509.1000, L506.0400, L502.0250, L500.4050, L503.7505, L100.0500, L500.4100, L506.1001 ####[facility] [address] [place], [address] White blood cell (WBC) count Ordered By: Shanon Caal on 07-14-2024 WBC (Bld) [#/Vol] 8.4 10*3/uL 4.4-11.0 [facility] Microalb:Creat Ratio,Random URon 01-15-2024 Creatinine [Mass/Vol] 117.00 mg/dL Normal NO RAN GE EST. [facility] Comment on above: Performed By: #### L 509.1000, L501.9520, L502.0250, L506.0400, L100.0500, L500.4050, L500.4100, L501.9985, L506.1000, L501.9910 #### [facility] [address] [place], [address] MALB:CRE 11.4 mg/g CRE Normal <30 mg/g CRE [facility] Comment on above: Performed By: #### L 509.1000, L501.9520, L502.0250, L506.0400, L100.0500, L500.4050, L500.4100, L501.9985, L506.1000, L501.9910 #### [facility] [address] [place], [address] MICROALBUMIN,UR 13.3 mg/L Normal NO RANGE EST. [facility] Comment on above: Performed By: #### L 509.1000, L501.9520, L502.0250, L506.0400, L100.0500, L500.4050, L500.4100, L501.9985, L506.1000, L501.9910 #### [facility] [address] [place], [address] CBC-Complete Blood Cnt No Di ffon 01-14-2024 Erythrocyte distribution width (RBC) [Ratio] 14.2 % Normal 11.6-14.6 [facility] Comment on above: Performed By: #### L 509.1000, L501.9520, L502.0250, L506.0400, L100.0500, L500.4050, L500.4100, L501.9985, L506.1000, L501.9910 #### [facility] [address] [place], [address] Hematocrit (Bld) [Volume fraction] 37.9 % Low 40-54 [facility] Comment on above: Performed By: #### L 509.1000, L501.9520, L502.0250, L506.0400, L100.0500, L500.4050, L500.4100, L501.9985, L506.1000, L501.9910 #### [facility] [address] [place], [address] Hemoglobin (Bld) [Mass/Vol] 12.6 g/dL Low 13.0-16.5 [facility] Comment on above: Performed By: #### L 509.1000, L501.9520, L502.0250, L506.0400, L100.0500, L500.4050, L500.4100, L501.9985, L506.1000, L501.9910 #### [facility] [address] [place], [address] MCH (RBC) [Entitic mass] 32.0 pg Normal 27.0-32.0 [facility] Comment on above: Performed By: #### L 509.1000, L501.9520, L502.0250, L506.0400, L100.0500, L500.4050, L500.4100, L501.9985, L506.1000, L501.9910 #### [facility] [address] [place], [address] MCHC (RBC) [Mass/Vol] 33.2 g/dL Normal 32-36 [facility] Comment on above: Performed By: #### L 509.1000, L501.9520, L502.0250, L506.0400, L100.0500, L500.4050, L500.4100, L501.9985, L506.1000, L501.9910 #### [facility] [address] [place], [address] MCV (RBC) [Entitic vol] 96.2 fL High 80-94 [facility] Comment on above: Performed By: #### L 509.1000, L501.9520, L502.0250, L506.0400, L100.0500, L500.4050, L500.4100, L501.9985, L506.1000, L501.9910 #### [facility] [address] [place], [address] Platelet mean volume (Bld) [Entitic vol] 10.6 fL Normal 6.2-12.0 [facility] Comment on above: Performed By: #### L 509.1000, L501.9520, L502.0250, L506.0400, L100.0500, L500.4050, L500.4100, L501.9985, L506.1000, L501.9910 #### [facility] [address] [place], [address] Platelets (Bld) [#/Vol] 137 10*3/uL Low 150-450 [facility] Comment on above: Performed By: #### L 509.1000, L501.9520, L502.0250, L506.0400, L100.0500, L500.4050, L500.4100, L501.9985, L506.1000, L501.9910 #### [facility] [address] [place], [address] RBC (Bld) [#/Vol] 3.94 10*6/uL Low 4.6-6.2 [facility] Comment on above: Performed By: #### L 509.1000, L501.9520, L502.0250, L506.0400, L100.0500, L500.4050, L500.4100, L501.9985, L506.1000, L501.9910 #### [facility] [address] [place], [address] RDW SD 50.1 fl High 35.1-43.9 [facility] Comment on above: Performed By: #### L 509.1000, L501.9520, L502.0250, L506.0400, L100.0500, L500.4050, L500.4100, L501.9985, L506.1000, L501.9910 #### [facility] [address] [place], [address] WBC (Bld) [#/Vol] 8.0 10*3/uL Normal 4.4-11.0 [facility] Comment on above: Performed By: #### L 509.1000, L501.9520, L502.0250, L506.0400, L100.0500, L500.4050, L500.4100, L501.9985, L506.1000, L501.9910 #### [facility] [address] [place] [place], [address] Comprehensive Metabolic Prof ilon 01-14-2024 Albumin [Mass/Vol] 3.5 g/dL Normal 3.2-5.0 [facility] Comment on above: Performed By: #### L 509.1000, L501.9520, L502.0250, L506.0400, L100.0500, L500.4050, L500.4100, L501.9985, L506.1000, L501.9910 #### [facility] [address] [place], [place], [id number] Albumin/Globulin [Mass ratio] 0.9 {ratio} Normal 0.9-2.4 [facility] Comment on above: Performed By: #### L 509.1000, L501.9520, L502.0250, L506.0400, L100.0500, L500.4050, L500.4100, L501.9985, L506.1000, L501.9910 #### [facility] [address] [place], [place], [phone] ([phone]) ALK P 89 U/L Normal 45-117 [facility] Comment on above: Performed By: #### L 509.1000, L501.9520, L502.0250, L506.0400, L100.0500, L500.4050, L500.4100, L501.9985, L506.1000, L501.9910 #### [facility] [address] [place], [place], [id number] ALT [Catalytic activity/Vol] 20 U/L Normal 16-61 [facility] Comment on above: Performed By: #### L 509.1000, L501.9520, L502.0250, L506.0400, L100.0500, L500.4050, L500.4100, L501.9985, L506.1000, L501.9910 #### [facility] [address] [place], [place], [id number] AST [Catalytic activity/Vol] 23 U/L Normal 15-37 [facility] Comment on above: Performed By: #### L 509.1000, L501.9520, L502.0250, L506.0400, L100.0500, L500.4050, L500.4100, L501.9985, L506.1000, L501.9910 #### [facility] [address] [place], [address] Bilirubin [Mass/Vol] 0.50 mg/dL Normal 0.20-1.00 [facility] Comment on above: Result Comment: For patients on eltrombopag therapy, use of Dimension [place] TBIL is not recommended. Performed By: #### L 509.1000, L501.9520, L502.0250, L506.0400, L100.0500, L500.4050, L500.4100, L501.9985, L506.1000, L501.9910 #### [facility] [address] [place], [place], [phone] (033) BUN/CRE 15.1 RATIO Normal 10-20 [facility] Comment on above: Performed By: #### L 509.1000, L501.9520, L502.0250, L506.0400, L100.0500, L500.4050, L500.4100, L501.9985, L506.1000, L501.9910 #### [facility] [address] [place], [place], [phone] (226) CA,Total 9.5 mg/dL Normal 8.5-10.1 [facility] Comment on above: Performed By: #### L 509.1000, L501.9520, L502.0250, L506.0400, L100.0500, L500.4050, L500.4100, L501.9985, L506.1000, L501.9910 #### [facility] [address] [place], [address] Chloride [Moles/Vol] 108 mmol/L High 98-107 [facility] Comment on above: Performed By: #### L 509.1000, L501.9520, L502.0250, L506.0400, L100.0500, L500.4050, L500.4100, L501.9985, L506.1000, L501.9910 #### [facility] [address] [place], [place], [id number] CO2 [Moles/Vol] 23.0 mmol/L Normal 21.0-32.0 [facility] Comment on above: Performed By: #### L 509.1000, L501.9520, L502.0250, L506.0400, L100.0500, L500.4050, L500.4100, L501.9985, L506.1000, L501.9910 #### [facility] [address] [place], [address] Creatinine [Mass/Vol] 1.46 mg/dL High 0.70-1.30 [facility] Comment on above: Result Comment: The validity of the calculated GFR GFRAA in patients over 70 years has not been determined. Clinical correlation is essential. Performed By: #### L 509.1000, L501.9520, L502.0250, L506.0400, L100.0500, L500.4050, L500.4100, L501.9985, L506.1000, L501.9910 #### [facility] [address] [place], [place], [id number] EST GFR - AA 59 mL/min Low >60 [facility] Comment on above: Result Comment: Afri can Romanian GFR Calc Performed By: #### L 509.1000, L501.9520, L502.0250, L506.0400, L100.0500, L500.4050, L500.4100, L501.9985, L506.1000, L501.9910 #### [facility] [address] [place], [place], [id number] GAP 9 Normal 5-15 [facility] Comment on above: Performed By: #### L 509.1000, L501.9520, L502.0250, L506.0400, L100.0500, L500.4050, L500.4100, L501.9985, L506.1000, L501.9910 #### [facility] [address] [place], [address] GFR/1.73 sq M.predicted among non-blacks MDRD (S/P/Bld) [Vol rate/Area] 49 mL/min/{1.73_m2} Low >60 [facility] Comment on above: Result Comment: Non- GFR Calc Performed By: #### L 509.1000, L501.9520, L502.0250, L506.0400, L100.0500, L500.4050, L500.4100, L501.9985, L506.1000, L501.9910 #### [facility] [address] [place], [address] Globulin (S) [Mass/Vol] 4.1 g/dL Normal 2.2-4.2 [facility] Comment on above: Performed By: #### L 509.1000, L501.9520, L502.0250, L506.0400, L100.0500, L500.4050, L500.4100, L501.9985, L506.1000, L501.9910 #### [facility] [address] [place], [address] Glucose [Mass/Vol] 109 mg/dL High 74-106 [facility] Comment on above: Result Comment: Fast ing Glucose result from 100 to 125 mg/dL suggests IMPAIRED HOMEOSTASIS per A.D.A. criteria. Performed By: #### L 509.1000, L501.9520, L502.0250, L506.0400, L100.0500, L500.4050, L500.4100, L501.9985, L506.1000, L501.9910 #### [facility] [address] [place], [address] Potassium [Moles/Vol] 4.0 mmol/L Normal 3.5-5.1 [facility] Comment on above: Performed By: #### L 509.1000, L501.9520, L502.0250, L506.0400, L100.0500, L500.4050, L500.4100, L501.9985, L506.1000, L501.9910 #### [facility] [address] [place], [address] Sodium [Moles/Vol] 140 mmol/L Normal 136-145 [facility] Comment on above: Performed By: #### L 509.1000, L501.9520, L502.0250, L506.0400, L100.0500, L500.4050, L500.4100, L501.9985, L506.1000, L501.9910 #### [facility] [address] [place], [place], [phone] (361) T PROT 7.6 g/dL Normal 6.4-8.2 [facility] Comment on above: Performed By: #### L 509.1000, L501.9520, L502.0250, L506.0400, L100.0500, L500.4050, L500.4100, L501.9985, L506.1000, L501.9910 #### [facility] [address] [place], [address] Urea nitrogen [Mass/Vol] 22 mg/dL High 7-18 [facility] Comment on above: Performed By: #### L 509.1000, L501.9520, L502.0250, L506.0400, L100.0500, L500.4050, L500.4100, L501.9985, L506.1000, L501.9910 #### [facility] [address] [place] [place], [address] Hemoglobin A1con 01-14-2024 HbA1c (Bld) [Mass fraction] 6.2 % High 3.8-5.6 [facility] Comment on above: Result Comment: Norm al < 5.7 % Prediabetic 5.7 - 6.4 % Diabetic >or= 6.5 % Please note range changes. Performed By: #### L 509.1000, L501.9520, L502.0250, L506.0400, L100.0500, L500.4050, L500.4100, L501.9985, L506.1000, L501.9910 ####[facility] [address] [place], [address] Lipid Profileon 01-14-2024 Cholesterol [Mass/Vol] 92 mg/dL Normal 200 [facility] Comment on above: Result Comment: <200 mg/dL Desirable 200-240 mg/dL Borderline >240 mg/dL High Risk Performed By: #### L 509.1000, L501.9520, L502.0250, L506.0400, L100.0500, L500.4050, L500.4100, L501.9985, L506.1000, L501.9910 #### [facility] [address] [place], [place], [phone] Cholesterol in HDL [Mass/Vol] 28 mg/dL Low [facility] Comment on above: Result Comment: The drugs N-Acetylcysteine and Metamizole may falsely depress this assay. Reference Range HDL <40 mg/dL Low HDL Cholesterol HDL >or= 60 mg/dL High HDL Cholesterol Performed By: #### L 509.1000, L501.9520, L502.0250, L506.0400, L100.0500, L500.4050, L500.4100, L501.9985, L506.1000, L501.9910 #### [facility] [address] [place], [address] Cholesterol in LDL [Mass/Vol] 40 mg/dL Normal 0-130 [facility] Comment on above: Performed By: #### L 509.1000, L501.9520, L502.0250, L506.0400, L100.0500, L500.4050, L500.4100, L501.9985, L506.1000, L501.9910 #### [facility] [address] [place], [place], [phone] (698) Cholesterol in VLDL [Mass/Vol] 24 mg/dL Normal 5-40 [facility] Comment on above: Performed By: #### L 509.1000, L501.9520, L502.0250, L506.0400, L100.0500, L500.4050, L500.4100, L501.9985, L506.1000, L501.9910 #### [facility] [address] [place], [address] (513) Triglyceride [Mass/Vol] 118 mg/dL Normal [facility] Comment on above: Result Comment: The drugs N-Acetylcysteine and Metamizole may falsely depress this assay. Serum Triglycerides Reference Interval Normal <150 mg/dL Borderline high 150 - 199 mg/dL High 200 - 499 mg/dL Very High > or = 500 mg/dL Performed By: #### L 509.1000, L501.9520, L502.0250, L506.0400, L100.0500, L500.4050, L500.4100, L501.9985, L506.1000, L501.9910 #### [facility] [address] [place], [place], [phone] (167) Microalb:Creat Ratio,Random URon 01-14-2024 MALB:CRE Normal <30 mg/g CRE [facility] Comment on above: Result Comment: PT U TO Performed By: #### L 509.1000, L501.9520, L502.0250, L506.0400, L100.0500, L500.4050, L500.4100, L501.9985, L506.1000, L501.9910 #### [facility] [address] [place], [place], [phone] (303) MICROALBUMIN,UR Normal NO RANGE EST. [facility] Comment on above: Result Comment: PT U TO Performed By: #### L 509.1000, L501.9520, L502.0250, L506.0400, L100.0500, L500.4050, L500.4100, L501.9985, L506.1000, L501.9910 #### [facility] [address] [place], [address] UR CREAT Normal NO RANGE EST. [facility] Comment on above: Result Comment: PT U TO Performed By: #### L 509.1000, L501.9520, L502.0250, L506.0400, L100.0500, L500.4050, L500.4100, L501.9985, L506.1000, L501.9910 #### [facility] [address] [place], [place], [phone] PSA,Total - Annual Screenon 01-14-2024 PSA,TOT SCREEN 0.68 ng/mL Normal 0.00-4.00 [facility] Comment on above: Result Comment: This test was performed using the TPSA assay method for the picsell chemistry system. Values obtained with different assay methods cannot be used interchangably. When changing PSA assays in the course of monitoring a patient, additional sequential testing should be carried out to confirm baseline values. Performed By: #### L 509.1000, L501.9520, L502.0250, L506.0400, L100.0500, L500.4050, L500.4100, L501.9985, L506.1000, L501.9910 ####[facility] [address] [place], [address] PTHINon - PTH 58.5 pg/mL Normal 18.4-80.1 [facility] Comment on above: Performed By: #### L 509.1000, L501.9520, L502.0250, L506.0400, L100.0500, L500.4050, L500.4100, L501.9985, L506.1000, L501.9910 #### [facility] [address] [place], [place], [phone] T4 Free Directon 01-14-2024 T4 FREE DIRECT 1.07 ng/dL Normal 0.76-1.46 [facility] Comment on above: Performed By: #### L 509.1000, L501.9520, L502.0250, L506.0400, L100.0500, L500.4050, L500.4100, L501.9985, L506.1000, L501.9910 ####[facility] [address] [place], [address] Thyroid Stim Hormone (TSH)on 01-14-2024 TSH 2.830 uIU/mL Normal 0.358-3.740 [facility] Comment on above: Performed By: #### L 509.1000, L501.9520, L502.0250, L506.0400, L100.0500, L500.4050, L500.4100, L501.9985, L506.1000, L501.9910 #### [facility] [address] [place], [address] Vitamin D,25 Hydroxyon 01-13 Vitamin D 25-OH 47.1 ng/mL Normal [facility] Comment on above: Result Comment: Keily min D 25(OH) Status Range Deficiency <20 ng/mL (50nmol/L) Insufficiency 20 - 30 ng/mL (50 - 75 nmol/L) Sufficiency 30 - 100 ng/mL (75 - 250 nmol/L) Toxicity >100 ng/mL (>250 nmol/L) Performed By: #### L 509.1000, L501.9520, L502.0250, L506.0400, L100.0500, L500.4050, L500.4100, L501.9985, L506.1000, L501.9910 #### [facility] [address] [place], [address] Gastroenterology Visit Repor ton 11-16-2023 Gastroenterology Visit Report [facility] [address] [place] [address] OFFICE VISIT Date of Service: 11/16/23 MR#: [id number] Acct: [id number] Name: SOULEYMANE JOYCE Rep #: [id number] : 1940 Provider: Bernardo Major DO Age/Sex: 82/M Location: [facility] [place] [place] Status: Signed Intake Vital Signs 03/22/23 13:52 07/26/23 14:40 Height 5 ft 6 in 5 ft 6 in Intake Visit Reasons: 6 M FU Allergies amiodarone Adverse Reaction (Intermediate, Verified 07/26/23 14:48) Dizzy and GI upset, SOB and cough Medications ???Medication ???Instructions ???Recorded ???Confirmed ???Type omega-3 fatty acids 1,000 mg 1,000 mg PO DAILY 09/30/20 11/16/23 History capsule (Fish Oil Concentrate) cinnamon bark 500 mg capsule 500 mg PO DAILY 12/08/21 11/16/23 History (Cinnamon) niacin 500 mg tablet 500 mg PO DAILY 12/08/21 11/16/23 History ferrous sulfate 325 mg (65 mg 325 mg PO TIDCM #0 tabs 05/02/22 11/16/23 Rx iron) tablet (FeroSul) atenolol 50 mg tablet 50 mg PO BID 02/09/23 11/16/23 History levothyroxine 25 mcg tablet 25 mcg PO DAILY 02/09/23 11/16/23 History clopidogrel 75 mg tablet 75 mg PO DAILY #90 tabs 02/19/23 11/16/23 Rx losartan 100 mg tablet 100 mg PO DAILY #90 tabs 02/19/23 11/16/23 Rx nitroglycerin 0.4 mg sublingual 0.4 mg sublingual Q5-15M PRN chest 02/19/23 11/16/23 Rx tablet pain #25 tabs furosemide 40 mg tablet 40 mg PO DAILY #90 tabs 03/22/23 11/16/23 Rx famotidine 20 mg tablet 20 mg PO BID #60 tabs 05/17/23 11/16/23 Rx atorvastatin 80 mg tablet 80 mg PO QDAY #90 tabs 07/26/23 11/16/23 Rx cholecalciferol (vitamin D3) 50 50 mcg PO DAILY 07/26/23 11/16/23 History mcg (2,000 unit) capsule sucralfate 1 gram tablet 1 g PO TID #90 TABLETS 11/07/23 11/16/23 Rx Have you fallen in the past year?: No [facility] Medical History 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 Bilateral leg ulcer BPH (benign prostatic hyperplasia) Cardiac arrest (11/2015) COVID-19 virus detected (03/21/21) Dependent edema Essential (primary) hypertension GERD (gastroesophageal reflux disease) History of myocardial infarction History of upper gastrointestinal hemorrhage Hyperlipidemia Leg edema, left Leg edema, right Leg swelling Lymphedema Obesity Obesity (BMI 30-39.9) Obstructive sleep apnea Obstructive sleep apnea Paroxysmal atrial fibrillation Syncope and collapse Surgical History History of coronary artery stent placement (12/07/15) History of hemorrhoidectomy (1972) History of right hip replacement (09/2013) History of total right hip replacement Family History Father CAD (coronary artery disease) Heart disease Hypertension Myocardial infarction Brother CAD (coronary artery disease) Heart disease Hypertension Myocardial infarction Mother CAD (coronary artery disease) Heart disease Hypertension Myocardial infarction Other Diabetes Social History household members: spouse Smoking Status: Former smoker how long ago did patient quit smoking: Quit in his 30s, smoked since teen ( 15-20 years), < 1 ppd day. alcohol intake: former substance use type: does not use caffeine: Yes Type: tea Number of servings: 2 HPI HPI Details: SOULEYMANE JOYCE, is a 82 M who presents to the office today for follow up. *[facility] hospitalization 04.24.22-2. ED presentation with rectal bleeding and hematemesis. Workup noted H H 8.3/27.8, CT concerning for blood in rectal vault and admitted for GIB management with hemorrhagic shock; additionally managed acute conditions of REMY with CKD III, UTI and various chronic conditions. Surgical consulted for placement of internal jugular IV access. GI consulted with multiple endoscopy procedures performed, anticoagulation/mary jo telet medications for AFib were held during this time; sucralfate, PPI, PO iron and Colace were started. He did not feel ready for discharge without providing clear indication what needed to be addressed. ID consulted 05.02.22 for management of UTI. Transferred to SNF. ? CT abd/pel 04.24.22 urinary bladder diverticulum versus ureterocele; prostatic calcifications; hyperdense fluid in rectal vault, oral contrast versus blood; umbilical hernia. ? EGD 04.25.22 red blood in gastric body; spurting cratered duodenal ulcer with visible vessel, injected and heater probe. No specimens collected. ? EGD 04.26.22 gastric body with inflammation and friability; three non-bleeding cratered duodenal ulcers, largest 5mm, APC (more content not included)... Normal [facility] Absolute lymphocyte countOrd ered By: Shanon Caal on 07-13-2023 Lymphocytes Auto (Unsp spec) [#/Vol] 3.26 10*3/uL 0.83-4.51 [facility] Automated lymphocyte count a s percentage of total leukocytesOrdered By: Shanon Caal on 07-13-2023 Lymphocytes/100 WBC Auto (Unsp spec) 41.0 % 19-41 [facility] Basophil percentageOrdered B y: Shanon Caal on 07-13-2023 Basophils/100 WBC (Bld) 0.6 % 0-1 [facility] Bilirubin [Mass/Vol] 0.40 mg/dL 0.20-1.00 [facility] Comment on above: For patients on eltr ombopag therapy, use of Dimension [place] TBIL is not recommended. Chloride [Moles/Vol] 107 mmol/L 98-107 [facility] Cholesterol [Mass/Vol] 93 mg/dL <200 [facility] Comment on above: <200 mg/dL Desirable 200-240 mg/dL Borderline >240 mg/dL High Risk Eosinophils/100 WBC (Bld) 3.0 % 0-5 [facility] Glucose [Mass/Vol] 113 mg/dL 74-106 [facility] Comment on above: Fasting Glucose resu lt from 100 to 125 mg/dL suggests IMPAIRED HOMEOSTASIS per A.D.A. criteria. Hemoglobin (Bld) [Mass/Vol] 12.5 g/dL 13.0-16.5 [facility] Monocytes/100 WBC (Bld) 8.9 % 0-10 [facility] Neutrophils (Bld) [#/Vol] 3.7 10*3/uL 2.0-7.7 [facility] Neutrophils/100 WBC (Bld) 46.0 % 47-70 [facility] Potassium [Moles/Vol] 4.1 mmol/L 3.5-5.1 [facility] Protein [Mass/Vol] 7.4 g/dL 6.4-8.2 [facility] Sodium [Moles/Vol] 139 mmol/L 136-145 [facility] Triglyceride [Mass/Vol] 173 mg/dL <199 [facility] Comment on above: The drugs N-Acetylcy steine and Metamizole may falsely depress this assay.Serum Triglycerides Reference Interval Normal <150 mg/dL Borderline high 150 - 199 mg/dL High 200 - 499 mg/dL Very High > or = 500 mg/dL WBC (Bld) [#/Vol] 8.0 10*3/uL 4.4-11.0 [facility] Determination of erythrocyte mean corpuscular volume (MCV)Ordered By: Shanon Caal on 07-13-2023 MCV (RBC) [Entitic vol] 99.2 fL 80-94 [facility] Erythrocyte distribution wid th ratioOrdered By: Shanon Caal on 07-13-2023 Erythrocyte distribution width (RBC) [Ratio] 14.0 % 11.6-14.6 [facility] Erythrocyte distribution wid th standard deviationOrdered By: Shanon Caal on 07-13-2023 Erythrocyte distribution width (RBC) [Entitic vol] 50.8 fL 35.1-43.9 [facility] Hematocrit Auto (Bld) [Volum e fraction]Ordered By: Shanon Caal on 07-13-2023 Hematocrit (Bld) [Volume fraction] 38.2 % 40-54 [facility] Immature granulocytes/100 WB C Auto (Bld)Ordered By: Shanon Caal on 07-13-2023 Immature granulocytes/100 WBC (Bld) 0.500 % 0.0-0.9 [facility] Comment on above: IG% - Immature Granu locytes (promyelocytes, myelocytes and metamyelocytes) > 1% indicates that a LEFT SHIFT is Present. Laboratory - Chemistry and C hemistry - challengeOrdered By: Shanon Caal on 07-13-2023 Albumin/Globulin [Mass ratio] 0.8 {ratio} 0.9-2.4 [facility] ALP [Catalytic activity/Vol] 90 U/L 45-117 [facility] ALT [Catalytic activity/Vol] 20 U/L 16-61 [facility] Cholesterol in HDL [Mass/Vol] 27 mg/dL >40 [facility] Comment on above: The drugs N-Acetylcy steine and Metamizole may falsely depress this assay. Reference Range HDL <40 mg/dL Low HDL Cholesterol HDL >or= 60 mg/dL High HDL Cholesterol Cholesterol in LDL [Mass/Vol] 31 mg/dL 0-130 [facility] CO2 [Moles/Vol] 28.0 mmol/L 21.0-32.0 [facility] Globulin (S) [Mass/Vol] 4.0 g/dL 2.2-4.2 [facility] Natriuretic peptide B (Bld) [Mass/Vol] 54.5 pg/mL 0-100 [facility] Urea nitrogen/Creatinine [Mass ratio] 20.0 mg/mg 10-20 [facility] - Hematology and Cell countsOrdered By: Shanon Caal on 07-13-2023 MCH (RBC) [Entitic mass] 32.5 pg 27.0-32.0 [facility] MCHC (RBC) [Mass/Vol] 32.7 g/dL 32-36 [facility] Nucleated RBC/100 WBC (Bld) [Ratio] 0 % 0-5 [facility] Platelet mean volume (Bld) [Entitic vol] 10.3 fL 6.2-12.0 [facility] Platelets (Bld) [#/Vol] 148 10*3/uL 150-450 [facility] No Panel InformationOrdered By: Shanon Caal on 07-13-2023 Estimated GFR (MDRD) Amer 71 mL/min >60 [facility] Comment on above: GFR Calc Estimated GFR (MDRD) Non-Af Amer 59 mL/min >60 [facility] Comment on above: Non- GFR Calc Vitamin D 25-Hydroxy 60.4 ng/mL [facility] Comment on above: Vitamin D 25(OH) Sta tus Range Deficiency <20 ng/mL (50nmol/L) Insufficiency 20 - 30 ng/mL (50 - 75 nmol/L) Sufficiency 30 - 100 ng/mL (75 - 250 nmol/L) Toxicity >100 ng/mL (>250 nmol/L) VLDL Cholesterol 35 mg/dL 5-40 [facility] RBC Auto (Bld) [#/Vol]Ordere d By: Shanon Caal on 07-13-2023 RBC (Bld) [#/Vol] 3.85 10*6/uL 4.6-6.2 [facility] Serum or plasma calcium jose armando urement (mass/volume)Ordered By: Shanon Caal on 07-13-2023 Calcium [Mass/Vol] 9.2 mg/dL 8.5-10.1 [facility] Serum or plasma creatinine m easurement (mass/volume)Ordered By: Shanon Caal on 07-13-2023 Creatinine [Mass/Vol] 1.25 mg/dL 0.70-1.30 [facility] Comment on above: The validity of the calculated GFR & GFRAA in patients over 70 years has not been determined. Clinical correlation is essential. Serum or plasma urea nitroge n measurement (mass/volume)Ordered By: Shanon Caal on 07-13-2023 Urea nitrogen [Mass/Vol] 25 mg/dL 7-18 [facility] Thin prep Papanicolaou smear with manual screeningOrdered By: Shanon Caal on 07-13-2023 Thin prep Papanicolaou smear with manual screening 3.4 g/dL 3.2-5.0 [facility] Thin prep Papanicolaou smear with manual screening 19 U/L 15-37 [facility] Thin prep Papanicolaou smear with manual screening 4 5-15 [facility] Whole blood hemoglobin A1c/t otal hemoglobin ratio (mass fraction)Ordered By: Shanon Caal on 07-13-2023 HbA1c (Bld) [Mass fraction] 5.7 % 3.8-5.6 [facility] Comment on above: Normal < 5.7 % Predi abetic 5.7 - 6.4 % Diabetic >or= 6.5 % Please note range changes. Absolute lymphocyte countOrd ered By: Bernardo Major on 05-17-2023 Lymphocytes Auto (Unsp spec) [#/Vol] 3.06 10*3/uL 0.83-4.51 [facility] Albumin Elph [Mass/Vol]Order ed By: Bernardo Major on 05-17-2023 Albumin [Mass/Vol] 3.5 g/dL 2.9-4.4 [facility] Automated lymphocyte count a s percentage of total leukocytesOrdered By: Bernardo Major on 05-17-2023 Lymphocytes/100 WBC Auto (Unsp spec) 28.8 % 19-41 [facility] Basophil percentageOrdered B y: Bernardo Major on 05-17-2023 Basophils/100 WBC (Bld) 0.5 % 0-1 [facility] Eosinophils/100 WBC (Bld) 1.6 % 0-5 [facility] Hemoglobin (Bld) [Mass/Vol] 11.8 g/dL 13.0-16.5 [facility] LDH [Catalytic activity/Vol] 171 U/L 87-241 [facility] Monocytes/100 WBC (Bld) 9.9 % 0-10 [facility] Neutrophils (Bld) [#/Vol] 6.3 10*3/uL 2.0-7.7 [facility] Neutrophils/100 WBC (Bld) 58.8 % 47-70 [facility] WBC (Bld) [#/Vol] 10.6 10*3/uL 4.4-11.0 [facility] Determination of erythrocyte mean corpuscular volume (MCV)Ordered By: Bernardo Major on 05-17-2023 MCV (RBC) [Entitic vol] 97.4 fL 80-94 [facility] Erythrocyte distribution wid th ratioOrdered By: Bernardo Major on 05-17-2023 Erythrocyte distribution width (RBC) [Ratio] 15.8 % 11.6-14.6 [facility] Erythrocyte distribution wid th standard deviationOrdered By: Bernardo Major on 05-17-2023 Erythrocyte distribution width (RBC) [Entitic vol] 56.0 fL 35.1-43.9 [facility] Hematocrit Auto (Bld) [Volum e fraction]Ordered By: Bernardo Major on 05-17-2023 Hematocrit (Bld) [Volume fraction] 37.4 % 40-54 [facility] Hemoglobin in reticulocytes (mass per reticulocyte)Ordered By: Bernardo Major on 05-17-2023 Hemoglobin (Reticulocytes) [Entitic mass] 35.0 pg 30-35 [facility] Immature granulocytes/100 WB C Auto (Bld)Ordered By: Bernardo Major on 05-17-2023 Immature granulocytes/100 WBC (Bld) 0.400 % 0.0-0.9 [facility] Comment on above: IG% - Immature Granu locytes (promyelocytes, myelocytes and metamyelocytes) > 1% indicates that a LEFT SHIFT is Present. Interpretation of serum or p lasma protein pattern by immunofixation (narrative resultOrdered By: Bernardo Major on 05-17-2023 Protein Fractions Immunofixation Christiano [Interp] Not Observed g/dL Not Observed [facility] Iron measurement (mass/mass) Ordered By: Bernardo Major on 05-17-2023 Iron (Unsp spec) [Mass/Mass] 62 ug/dL 65-175 [facility] Laboratory - Chemistry and C hemistry - challengeOrdered By: Bernardo Major on 05-17-2023 Ferritin [Mass/Vol] 568 ng/mL 26-388 [facility] Laboratory - Hematology and Cell countsOrdered By: Bernardo Major on 05-17-2023 MCH (RBC) [Entitic mass] 30.7 pg 27.0-32.0 [facility] MCHC (RBC) [Mass/Vol] 31.6 g/dL 32-36 [facility] Nucleated RBC/100 WBC (Bld) [Ratio] 0 % 0-5 [facility] Platelet mean volume (Bld) [Entitic vol] 11.0 fL 6.2-12.0 [facility] Platelets (Bld) [#/Vol] 169 10*3/uL 150-450 [facility] No Panel InformationOrdered By: Bernardo Major on 05-17-2023 Addendum Document Comment . [facility] Comment on above: Protein electrophore sis scan will follow via computer,mail, or icing maker delivery.Performed at: [facility] [id number] Director: Efrain Bailey PhD, Phone: [phone] Endomysial IgA Antibody Negative Negative [facility] Immature Reticulocyte Fraction 10.20 % 3.00-15.90 [facility] Immunoglobulin M 60 mg/dL 15-143 [facility] Total Iron Binding Capacity 316 ug/dL 250-450 [facility] RBC Auto (Bld) [#/Vol]Ordere d By: Bernardo Major on 05-17-2023 RBC (Bld) [#/Vol] 3.84 10*6/uL 4.6-6.2 [facility] Reticulocytes Auto (Bld) [#/ Vol]Ordered By: Bernardo Major on 05-17-2023 Reticulocytes/100 RBC (Bld) 1.16 % 0.5-1.5 [facility] Serum syion-0-wbxifczd measu rement by electrophoresisOrdered By: Bernardo Major on 05-17-2023 Alpha 1 globulin Elph [Mass/Vol] 0.2 g/dL 0.0-0.4 [facility] Alpha 1 globulin Elph [Mass/Vol] 0.9 g/dL 0.4-1.0 [facility] Serum globulin measurement ( mass/volume)Ordered By: Bernardo Major on 05-17-2023 Globulin (S) [Mass/Vol] 3.7 g/dL 2.2-3.9 [facility] Serum or plasma IgA measurem ent (mass/volume)Ordered By: Bernardo Major on 05-17-2023 IgA [Mass/Vol] 747 mg/dL 61-437 [facility] Serum or plasma IgG measurem ent (mass/volume)Ordered By: Bernardo Major on 05-17-2023 IgG [Mass/Vol] 1328 mg/dL 603-1613 [facility] Serum or plasma beta globuli n measurement by electrophoresis (mass/volume)Ordered By: Bernardo Major on 05-17-2023 Beta globulin Elph [Mass/Vol] 1.4 g/dL 0.7-1.3 [facility] Serum or plasma gamma globul in measurement by electrophoresis (mass/volume)Ordered By: Bernardo Major on 05-17-2023 Gamma globulin Elph [Mass/Vol] 1.1 g/dL 0.4-1.8 [facility] Serum or plasma immunoelectr ophoresis interpretation (nominal result)Ordered By: Bernardo Major on 05-17-2023 Interpretation IEP [Interp] Comment . [facility] Comment on above: No monoclonality det ected. Serum tissue transglutaminas e IgA antibody assay (units/volume)Ordered By: Bernardo Major on 05-17-2023 tTG IgA Qn (S) 3 U/mL 0-3 [facility] Comment on above: Negative 0 - 3 Weak Positive 4 - 10 Positive >10 Tissue Transglutaminase (tTG) has been identified as the endomysial antigen. Studies have demonstr- ated that endomysial IgA antibodies have over 99% specificity for gluten sensitive enteropathy. Thin prep Papanicolaou smear with manual screeningOrdered By: Bernardo Major on 05-17-2023 Thin prep Papanicolaou smear with manual screening 1.0 0.7-1.7 [facility] Total protein bloodOrdered B y: Bernardo Major on 05-17-2023 Protein [Mass/Vol] 7.2 g/dL 6.0-8.5 [facility] Basophil percentageOrdered B y: Evaristo Suresh on 02-19-2023 Bilirubin [Mass/Vol] 0.60 mg/dL 0.20-1.00 [facility] Comment on above: For patients on eltr ombopag therapy, use of Dimension [place] TBIL is not recommended. Chloride [Moles/Vol] 107 mmol/L 98-107 [facility] Glucose [Mass/Vol] 103 mg/dL 74-106 [facility] Comment on above: Fasting Glucose resu lt from 100 to 125 mg/dL suggests IMPAIRED HOMEOSTASIS per A.D.A. criteria. Potassium [Moles/Vol] 4.2 mmol/L 3.5-5.1 [facility] Protein [Mass/Vol] 8.3 g/dL 6.4-8.2 [facility] Sodium [Moles/Vol] 142 mmol/L 136-145 [facility] Laboratory - Chemistry and C hemistry - challengeOrdered By: Evaristo Suresh on 02-19-2023 ALP [Catalytic activity/Vol] 100 U/L 45-117 [facility] ALT [Catalytic activity/Vol] 18 U/L 16-61 [facility] CO2 [Moles/Vol] 29.0 mmol/L 21.0-32.0 [facility] Globulin (S) [Mass/Vol] 4.8 g/dL 2.2-4.2 [facility] Urea nitrogen/Creatinine [Mass ratio] 19.4 mg/mg 10-20 [facility] No Panel InformationOrdered By: Evaristo Suresh on 02-19-2023 Estimated GFR (MDRD) Amer 56 mL/min >60 [facility] Comment on above: GFR Calc Estimated GFR (MDRD) Non-Af Amer 46 mL/min >60 [facility] Comment on above: Non- GFR Calc Serum or plasma albumin jose armando urement (mass/volume)Ordered By: Evaristo Suresh on 02-19-2023 Albumin [Mass/Vol] 3.5 g/dL 3.2-5.0 [facility] Serum or plasma albumin/glob ulin mass ratioOrdered By: Evaristo Suresh on 02-19-2023 Albumin/Globulin [Mass ratio] 0.7 {ratio} 0.9-2.4 [facility] Serum or plasma calcium jose armando urement (mass/volume)Ordered By: Evaristo Suresh on 02-19-2023 Calcium [Mass/Vol] 9.2 mg/dL 8.5-10.1 [facility] Serum or plasma creatinine m easurement (mass/volume)Ordered By: Evaristo Suresh on 02-19-2023 Creatinine [Mass/Vol] 1.55 mg/dL 0.70-1.30 [facility] Comment on above: The validity of the calculated GFR & GFRAA in patients over 70 years has not been determined. Clinical correlation is essential. Serum or plasma urea nitroge n measurement (mass/volume)Ordered By: Evaristo Suresh on 02-19-2023 Urea nitrogen [Mass/Vol] 30 mg/dL 7-18 [facility] Thin prep Papanicolaou smear with manual screeningOrdered By: Evaristo Suresh on 02-19-2023 Thin prep Papanicolaou smear with manual screening 26 U/L 15-37 [facility] Thin prep Papanicolaou smear with manual screening 6 5-15 [facility] Laboratory - Chemistry and C hemistry - challengeOrdered By: Shanon Caal on 01-13-2023 Free T4 [Mass/Vol] 1.23 ng/dL 0.76-1.46 [facility] No Panel InformationOrdered By: Shanon Caal on 01-13-2023 Thyroid Stimulating Hormone (TSH) 3.65 uIU/mL 0.358-3.74 [facility] Basophil percentageOrdered B y: Shanon Caal on 01-08-2023 Bilirubin [Mass/Vol] 0.70 mg/dL 0.20-1.00 [facility] Comment on above: For patients on eltr ombopag therapy, use of Dimension [place] TBIL is not recommended. Chloride [Moles/Vol] 108 mmol/L 98-107 [facility] Cholesterol [Mass/Vol] 103 mg/dL <200 [facility] Comment on above: <200 mg/dL Desirable 200-240 mg/dL Borderline >240 mg/dL High Risk Glucose [Mass/Vol] 118 mg/dL 74-106 [facility] Comment on above: Fasting Glucose resu lt from 100 to 125 mg/dL suggests IMPAIRED HOMEOSTASIS per A.D.A. criteria. Potassium [Moles/Vol] 3.6 mmol/L 3.5-5.1 [facility] Protein [Mass/Vol] 7.7 g/dL 6.4-8.2 [facility] Sodium [Moles/Vol] 143 mmol/L 136-145 [facility] Triglyceride [Mass/Vol] 76 mg/dL <199 [facility] Comment on above: The drugs N-Acetylcy steine and Metamizole may falsely depress this assay.Serum Triglycerides Reference Interval Normal <150 mg/dL Borderline high 150 - 199 mg/dL High 200 - 499 mg/dL Very High > or = 500 mg/dL WBC (Bld) [#/Vol] 8.5 10*3/uL 4.4-11.0 [facility] Blood erythrocytes count (nu mber/volume)Ordered By: Shanon Caal on 01-08-2023 RBC (Bld) [#/Vol] 3.88 10*6/uL 4.6-6.2 [facility] Blood hemoglobin measurement (mass/volume)Ordered By: Shanon Caal on 01-08-2023 Hemoglobin (Bld) [Mass/Vol] 12.1 g/dL 13.0-16.5 [facility] Blood platelet mean volumeOr dered By: Shanon Caal on 01-08-2023 Platelet mean volume (Bld) [Entitic vol] 10.7 fL 6.2-12.0 [facility] Determination of erythrocyte mean corpuscular volume (MCV)Ordered By: Shanon Caal on 01-08-2023 MCV (RBC) [Entitic vol] 99.7 fL 80-94 [facility] Hematocrit Auto (Bld) [Volum e fraction]Ordered By: Shanon Caal on 01-08-2023 Hematocrit (Bld) [Volume fraction] 38.7 % 40-54 [facility] Iron measurement (mass/mass) Ordered By: Shanon Caal on 01-08-2023 Iron (Unsp spec) [Mass/Mass] 62 ug/dL 65-175 [facility] Laboratory - Chemistry and C hemistry - challengeOrdered By: Shanon Caal on 01-08-2023 ALP [Catalytic activity/Vol] 82 U/L 45-117 [facility] ALT [Catalytic activity/Vol] 20 U/L 16-61 [facility] CO2 [Moles/Vol] 31.0 mmol/L 21.0-32.0 [facility] Globulin (S) [Mass/Vol] 4.3 g/dL 2.2-4.2 [facility] Natriuretic peptide B (Bld) [Mass/Vol] 355.3 pg/mL 0-100 [facility] Urea nitrogen/Creatinine [Mass ratio] 13.2 mg/mg 10-20 [facility] Laboratory - Hematology and Cell countsOrdered By: Shanon Caal on 01-08-2023 Erythrocyte distribution width (RBC) [Entitic vol] 59.8 fL 35.1-43.9 [facility] Erythrocyte distribution width (RBC) [Ratio] 16.3 % 11.6-14.6 [facility] MCH (RBC) [Entitic mass] 31.2 pg 27.0-32.0 [facility] MCHC Auto (RBC) [Mass/Vol]Or dered By: Shanon Caal on 01-08-2023 MCHC (RBC) [Mass/Vol] 31.3 g/dL 32-36 [facility] No Panel InformationOrdered By: Shanon Caal on 01-08-2023 Estimated GFR (MDRD) Amer 69 mL/min >60 [facility] Comment on above: GFR Calc Estimated GFR (MDRD) Non-Af Amer 57 mL/min >60 [facility] Comment on above: Non- GFR Calc Urine Microalbumin/Creatinine Ratio 48.5 mg/g CRE <30 [facility] Vitamin D 25-Hydroxy 54.5 ng/mL [facility] Comment on above: Vitamin D 25(OH) Sta tus Range Deficiency <20 ng/mL (50nmol/L) Insufficiency 20 - 30 ng/mL (50 - 75 nmol/L) Sufficiency 30 - 100 ng/mL (75 - 250 nmol/L) Toxicity >100 ng/mL (>250 nmol/L) Platelets bldOrdered By: Jin Caal on 01-08-2023 Platelets (Bld) [#/Vol] 140 10*3/uL 150-450 [facility] Serum or plasma albumin jose armando urement (mass/volume)Ordered By: Shanon Caal on 01-08-2023 Albumin [Mass/Vol] 3.4 g/dL 3.2-5.0 [facility] Serum or plasma albumin/glob ulin mass ratioOrdered By: Shanon Caal on 01-08-2023 Albumin/Globulin [Mass ratio] 0.8 {ratio} 0.9-2.4 [facility] Serum or plasma calcium jose armando urement (mass/volume)Ordered By: Shanon Caal on 01-08-2023 Calcium [Mass/Vol] 9.2 mg/dL 8.5-10.1 [facility] Serum or plasma cholesterol in HDL measurement (mass/volume)Ordered By: Shanon Caal on 01-08-2023 Cholesterol in HDL [Mass/Vol] 30 mg/dL >40 [facility] Comment on above: The drugs N-Acetylcy steine and Metamizole may falsely depress this assay. Reference Range HDL <40 mg/dL Low HDL Cholesterol HDL >or= 60 mg/dL High HDL Cholesterol Serum or plasma cholesterol in VLDL measurement (mass/volume)Ordered By: Shanon Caal on 01-08-2023 Cholesterol in VLDL [Mass/Vol] 15 mg/dL 5-40 [facility] Serum or plasma creatinine m easurement (mass/volume)Ordered By: Shanon Caal on 01-08-2023 Creatinine [Mass/Vol] 1.29 mg/dL 0.70-1.30 [facility] Comment on above: The validity of the calculated GFR & GFRAA in patients over 70 years has not been determined. Clinical correlation is essential. Serum or plasma low density lipoprotein (LDL) cholesterol measurement (mass/volume)Ordered By: Shanon Caal on 01-08-2023 Cholesterol in LDL [Mass/Vol] 58 mg/dL 0-130 [facility] Serum or plasma urea nitroge n measurement (mass/volume)Ordered By: Shanon Caal on 01-08-2023 Urea nitrogen [Mass/Vol] 17 mg/dL 7-18 [facility] Thin prep Papanicolaou smear with manual screeningOrdered By: Shanon Caal on 01-08-2023 Thin prep Papanicolaou smear with manual screening 25 U/L 15-37 [facility] Thin prep Papanicolaou smear with manual screening 4 5-15 [facility] Thin prep Papanicolaou smear with manual screening 50.9 mg/L NO RANGE EST. [facility] Urine creatinine measurement (mass/volume)Ordered By: Shanon Caal on 01-08-2023 Creatinine (U) [Mass/Vol] 105.00 mg/dL NO RANGE EST. [facility] Whole blood hemoglobin A1c/t otal hemoglobin ratio (mass fraction)Ordered By: Shanon Caal on 01-08-2023 HbA1c (Bld) [Mass fraction] 5.9 % 3.8-5.6 [facility] Comment on above: Normal < 5.7 % Predi abetic 5.7 - 6.4 % Diabetic >or= 6.5 % Please note range changes. Basophil percentageOrdered B y: Shanon Caal on 11-20-2022 Bilirubin [Mass/Vol] 0.70 mg/dL 0.20-1.00 [facility] Comment on above: For patients on eltr ombopag therapy, use of Dimension [place] TBIL is not recommended. Chloride [Moles/Vol] 105 mmol/L 98-107 [facility] Glucose [Mass/Vol] 109 mg/dL 74-106 [facility] Comment on above: Fasting Glucose resu lt from 100 to 125 mg/dL suggests IMPAIRED HOMEOSTASIS per A.D.A. criteria. Potassium [Moles/Vol] 4.4 mmol/L 3.5-5.1 [facility] Comment on above: Moderate Hemolysis, Result may be falsely increased. Protein [Mass/Vol] 8.6 g/dL 6.4-8.2 [facility] Sodium [Moles/Vol] 141 mmol/L 136-145 [facility] Laboratory - Chemistry and C hemistry - challengeOrdered By: Shanon Caal on 11-20-2022 ALP [Catalytic activity/Vol] 94 U/L 45-117 [facility] ALT [Catalytic activity/Vol] 31 U/L 16-61 [facility] CO2 [Moles/Vol] 31.0 mmol/L 21.0-32.0 [facility] Globulin (S) [Mass/Vol] 5.1 g/dL 2.2-4.2 [facility] Natriuretic peptide B (Bld) [Mass/Vol] 165.2 pg/mL 0-100 [facility] Urea nitrogen/Creatinine [Mass ratio] 18.9 mg/mg 10-20 [facility] No Panel InformationOrdered By: Shanon Caal on 11-20-2022 Estimated GFR (MDRD) Amer 52 mL/min >60 [facility] Comment on above: GFR Calc Estimated GFR (MDRD) Non-Af Amer 43 mL/min >60 [facility] Comment on above: Non- GFR Calc Thyroid Stimulating Hormone (TSH) 6.27 uIU/mL 0.358-3.74 [facility] Serum or plasma albumin jose armando urement (mass/volume)Ordered By: Shanon Caal on 11-20-2022 Albumin [Mass/Vol] 3.5 g/dL 3.2-5.0 [facility] Serum or plasma albumin/glob ulin mass ratioOrdered By: Shanon Caal on 11-20-2022 Albumin/Globulin [Mass ratio] 0.7 {ratio} 0.9-2.4 [facility] Serum or plasma calcium jose armando urement (mass/volume)Ordered By: Shanon Caal on 11-20-2022 Calcium [Mass/Vol] 9.3 mg/dL 8.5-10.1 [facility] Serum or plasma creatinine m easurement (mass/volume)Ordered By: Shanon Caal on 11-20-2022 Creatinine [Mass/Vol] 1.64 mg/dL 0.70-1.30 [facility] Comment on above: The validity of the calculated GFR & GFRAA in patients over 70 years has not been determined. Clinical correlation is essential. Serum or plasma urea nitroge n measurement (mass/volume)Ordered By: Shanon Caal on 11-20-2022 Urea nitrogen [Mass/Vol] 31 mg/dL 7-18 [facility] Thin prep Papanicolaou smear with manual screeningOrdered By: Shanon Caal on 11-20-2022 Thin prep Papanicolaou smear with manual screening 39 U/L 15-37 [facility] Comment on above: Moderate Hemolysis, Result may be falsely increased. Thin prep Papanicolaou smear with manual screening 5 5-15 [facility] Clostridium difficile detect ion by polymerase chain reactionOrdered By: Vanessa Varghese on 08-18-2022 C. difficile DNA FERNY+probe Ql (Unsp spec) [facility] Absolute lymphocyte countOrd ered By: Vanessa Varghese on 08-17-2022 Lymphocytes Auto (Unsp spec) [#/Vol] 2.74 10*3/uL 0.83-4.51 [facility] Basophil percentageOrdered B y: Vanessa Varghese on 08-17-2022 Basophils/100 WBC (Bld) 0.5 % 0-1 [facility] Bilirubin [Mass/Vol] 0.40 mg/dL 0.20-1.00 [facility] Comment on above: For patients on eltr ombopag therapy, use of Dimension [place] TBIL is not recommended. Chloride [Moles/Vol] 109 mmol/L 98-107 [facility] Eosinophils/100 WBC (Bld) 2.8 % 0-5 [facility] Glucose [Mass/Vol] 114 mg/dL 74-106 [facility] Comment on above: Fasting Glucose resu lt from 100 to 125 mg/dL suggests IMPAIRED HOMEOSTASIS per A.D.A. criteria. Neutrophils (Bld) [#/Vol] 4.3 10*3/uL 2.0-7.7 [facility] Neutrophils/100 WBC (Bld) 53.6 % 47-70 [facility] Potassium [Moles/Vol] 3.8 mmol/L 3.5-5.1 [facility] Protein [Mass/Vol] 8.0 g/dL 6.4-8.2 [facility] Sodium [Moles/Vol] 143 mmol/L 136-145 [facility] WBC (Bld) [#/Vol] 8.0 10*3/uL 4.4-11.0 [facility] Blood erythrocytes count (nu mber/volume)Ordered By: Vanessa Varghese on 08-17-2022 RBC (Bld) [#/Vol] 4.11 10*6/uL 4.6-6.2 [facility] Blood hemoglobin measurement (mass/volume)Ordered By: Vanessa Varghese on 08-17-2022 Hemoglobin (Bld) [Mass/Vol] 12.1 g/dL 13.0-16.5 [facility] Blood lymphocytes/100 leukoc ytesOrdered By: Vanessa Varghese on 08-17-2022 Lymphocytes/100 WBC (Bld) 34.5 % 19-41 [facility] Blood monocytes/100 leukocyt esOrdered By: Vanessa Varghese on 08-17-2022 Monocytes/100 WBC (Bld) 8.3 % 0-10 [facility] Blood platelet mean volumeOr dered By: Vanessa Varghese on 08-17-2022 Platelet mean volume (Bld) [Entitic vol] 10.0 fL 6.2-12.0 [facility] Determination of erythrocyte mean corpuscular volume (MCV)Ordered By: Vanessa Varghese on 08-17-2022 MCV (RBC) [Entitic vol] 96.6 fL 80-94 [facility] Hematocrit Auto (Bld) [Volum e fraction]Ordered By: Vanessa Varghese on 08-17-2022 Hematocrit (Bld) [Volume fraction] 39.7 % 40-54 [facility] Iron measurement (mass/mass) Ordered By: Vanessa Varghese on 08-17-2022 Iron (Unsp spec) [Mass/Mass] 51 ug/dL 65-175 [facility] Laboratory - Chemistry and C hemistry - challengeOrdered By: Vanessa Varghese on 08-17-2022 ALP [Catalytic activity/Vol] 94 U/L 45-117 [facility] ALT [Catalytic activity/Vol] 21 U/L 16-61 [facility] CO2 [Moles/Vol] 30.0 mmol/L 21.0-32.0 [facility] Globulin (S) [Mass/Vol] 4.4 g/dL 2.2-4.2 [facility] Urea nitrogen/Creatinine [Mass ratio] 13.9 mg/mg 10-20 [facility] Laboratory - Hematology and Cell countsOrdered By: Vanessa Varghese on 08-17-2022 Erythrocyte distribution width (RBC) [Entitic vol] 53.8 fL 35.1-43.9 [facility] Erythrocyte distribution width (RBC) [Ratio] 15.1 % 11.6-14.6 [facility] Immature granulocytes/100 WBC (Bld) 0.300 % 0.0-0.9 [facility] Comment on above: IG% - Immature Granu locytes (promyelocytes, myelocytes and metamyelocytes) > 1% indicates that a LEFT SHIFT is Present. MCH (RBC) [Entitic mass] 29.4 pg 27.0-32.0 [facility] Nucleated RBC/100 WBC (Bld) [Ratio] 0 % 0-5 [facility] MCHC Auto (RBC) [Mass/Vol]Or dered By: Vanessa Varghese on 08-17-2022 MCHC (RBC) [Mass/Vol] 30.5 g/dL 32-36 [facility] No Panel InformationOrdered By: Vanessa Varghese on 08-17-2022 Estimated GFR (MDRD) Amer 73 mL/min >60 [facility] Comment on above: GFR Calc Estimated GFR (MDRD) Non-Af Amer 61 mL/min >60 [facility] Comment on above: Non- GFR Calc Total Iron Binding Capacity 231 ug/dL 250-450 [facility] Platelets bldOrdered By: Beth Varghese on 08-17-2022 Platelets (Bld) [#/Vol] 149 10*3/uL 150-450 [facility] Serum or plasma albumin jose armando urement (mass/volume)Ordered By: Vanessa Varghese on 08-17-2022 Albumin [Mass/Vol] 3.6 g/dL 3.2-5.0 [facility] Serum or plasma albumin/glob ulin mass ratioOrdered By: Vanessa Varghese on 08-17-2022 Albumin/Globulin [Mass ratio] 0.8 {ratio} 0.9-2.4 [facility] Serum or plasma calcium jose armando urement (mass/volume)Ordered By: Vanessa Varghese on 08-17-2022 Calcium [Mass/Vol] 9.2 mg/dL 8.5-10.1 [facility] Serum or plasma creatinine m easurement (mass/volume)Ordered By: Vanessa Varghese on 08-17-2022 Creatinine [Mass/Vol] 1.22 mg/dL 0.70-1.30 [facility] Comment on above: The validity of the calculated GFR & GFRAA in patients over 70 years has not been determined. Clinical correlation is essential. Serum or plasma ferritin sundeep surement (mass/volume)Ordered By: Vanessa Varghese on 08-17-2022 Ferritin [Mass/Vol] 225 ng/mL 26-388 [facility] Serum or plasma iron saturat ion measurement (mass fraction)Ordered By: Vanessa Varghese on 08-17-2022 Iron saturation [Mass fraction] 22.1 % 15.0-55.0 [facility] Serum or plasma urea nitroge n measurement (mass/volume)Ordered By: Vanessa Varghese on 08-17-2022 Urea nitrogen [Mass/Vol] 17 mg/dL 7-18 [facility] Thin prep Papanicolaou smear with manual screeningOrdered By: Vanessa Varghese on 08-17-2022 Thin prep Papanicolaou smear with manual screening 24 U/L 15-37 [facility] Thin prep Papanicolaou smear with manual screening 4 5-15 [facility] Basophil percentageOrdered B y: Shanon Caal on 07-06-2022 WBC (Bld) [#/Vol] 7.1 10*3/uL 4.4-11.0 [facility] Bilirubin [Mass/Vol] 0.40 mg/dL 0.20-1.00 [facility] Comment on above: For patients on eltr ombopag therapy, use of Dimension [place] TBIL is not recommended. Chloride [Moles/Vol] 108 mmol/L 98-107 [facility] Cholesterol [Mass/Vol] 92 mg/dL <200 [facility] Comment on above: <200 mg/dL Desirable 200-240 mg/dL Borderline >240 mg/dL High Risk Glucose [Mass/Vol] 113 mg/dL 74-106 [facility] Comment on above: Fasting Glucose resu lt from 100 to 125 mg/dL suggests IMPAIRED HOMEOSTASIS per A.D.A. criteria. Potassium [Moles/Vol] 3.3 mmol/L 3.5-5.1 [facility] Protein [Mass/Vol] 7.3 g/dL 6.4-8.2 [facility] Sodium [Moles/Vol] 141 mmol/L 136-145 [facility] Triglyceride [Mass/Vol] 89 mg/dL <199 [facility] Comment on above: The drugs N-Acetylcy steine and Metamizole may falsely depress this assay.Serum Triglycerides Reference Interval Normal <150 mg/dL Borderline high 150 - 199 mg/dL High 200 - 499 mg/dL Very High > or = 500 mg/dL Blood erythrocytes count (nu mber/volume)Ordered By: Shanon Caal on 07-06-2022 RBC (Bld) [#/Vol] 3.81 10*6/uL 4.6-6.2 [facility] Blood hemoglobin measurement (mass/volume)Ordered By: Shanon Caal on 07-06-2022 Hemoglobin (Bld) [Mass/Vol] 11.6 g/dL 13.0-16.5 [facility] Blood platelet mean volumeOr dered By: Shanon Caal on 07-06-2022 Platelet mean volume (Bld) [Entitic vol] 10.7 fL 6.2-12.0 [facility] Determination of erythrocyte mean corpuscular volume (MCV)Ordered By: Shanon Caal on 07-06-2022 MCV (RBC) [Entitic vol] 100.0 fL 80-94 [facility] Hematocrit Auto (Bld) [Volum e fraction]Ordered By: Shanon Caal on 07-06-2022 Hematocrit (Bld) [Volume fraction] 38.1 % 40-54 [facility] - Chemistry and C hemistry - challengeOrdered By: Shanon Caal on 07-06-2022 ALP [Catalytic activity/Vol] 89 U/L 45-117 [facility] ALT [Catalytic activity/Vol] 20 U/L 16-61 [facility] CO2 [Moles/Vol] 31.0 mmol/L 21.0-32.0 [facility] Globulin (S) [Mass/Vol] 3.8 g/dL 2.2-4.2 [facility] Urea nitrogen/Creatinine [Mass ratio] 12.2 mg/mg 10-20 [facility] - Hematology and Cell countsOrdered By: Shanon Caal on 07-06-2022 Erythrocyte distribution width (RBC) [Entitic vol] 55.9 fL 35.1-43.9 [facility] Erythrocyte distribution width (RBC) [Ratio] 15.0 % 11.6-14.6 [facility] MCH (RBC) [Entitic mass] 30.4 pg 27.0-32.0 [facility] MCHC Auto (RBC) [Mass/Vol]Or dered By: Shanon Caal on 07-06-2022 MCHC (RBC) [Mass/Vol] 30.4 g/dL 32-36 [facility] No Panel InformationOrdered By: Shanon Caal on 07-06-2022 Parathyroid Hormone (Intact) 56.3 pg/mL 18.4-80.1 [facility] Vitamin D 25-Hydroxy 42.5 ng/mL [facility] Comment on above: Vitamin D 25(OH) Sta tus Range Deficiency <20 ng/mL (50nmol/L) Insufficiency 20 - 30 ng/mL (50 - 75 nmol/L) Sufficiency 30 - 100 ng/mL (75 - 250 nmol/L) Toxicity >100 ng/mL (>250 nmol/L) Estimated GFR (MDRD) Amer 78 mL/min >60 [facility] Comment on above: GFR Calc Estimated GFR (MDRD) Non-Af Amer 65 mL/min >60 [facility] Comment on above: Non- GFR Calc Prostate Specific Antigen Screen 0.52 ng/mL 0.00-4.00 [facility] Comment on above: This test was perfor med using the TPSA assay method for thepicsell chemistry system. Values obtained with differentassay methods cannot be used interchangably.When changing PSA assays in the course of monitoring apatient, additional sequential testing should be carriedout to confirm baseline values. Plasma renin measurement (en zymatic activity/volume)Ordered By: Shanon Caal on 07-06-2022 Renin (P) [Catalytic activity/Vol] 0.209 ng/mL/hr 0.167-5.380 [facility] Comment on above: Performed at: [address] [id number] Director: Manish Saab MD, Phone: [phone] Platelets bldOrdered By: Jin Caal on 07-06-2022 Platelets (Bld) [#/Vol] 139 10*3/uL 150-450 [facility] Serum or plasma albumin jose armando urement (mass/volume)Ordered By: Shanon Caal on 07-06-2022 Albumin [Mass/Vol] 3.5 g/dL 3.2-5.0 [facility] Serum or plasma albumin/glob ulin mass ratioOrdered By: Shanon Caal on 07-06-2022 Albumin/Globulin [Mass ratio] 0.9 {ratio} 0.9-2.4 [facility] Serum or plasma calcium jose armando urement (mass/volume)Ordered By: Shanon Caal on 07-06-2022 Calcium [Mass/Vol] 8.9 mg/dL 8.5-10.1 [facility] Serum or plasma cholesterol in HDL measurement (mass/volume)Ordered By: Shanon Caal on 07-06-2022 Cholesterol in HDL [Mass/Vol] 29 mg/dL >40 [facility] Comment on above: The drugs N-Acetylcy steine and Metamizole may falsely depress this assay. Reference Range HDL <40 mg/dL Low HDL Cholesterol HDL >or= 60 mg/dL High HDL Cholesterol Serum or plasma cholesterol in VLDL measurement (mass/volume)Ordered By: Shanon Caal on 07-06-2022 Cholesterol in VLDL [Mass/Vol] 18 mg/dL 5-40 [facility] Serum or plasma creatinine m easurement (mass/volume)Ordered By: Shanon Caal on 07-06-2022 Creatinine [Mass/Vol] 1.15 mg/dL 0.70-1.30 [facility] Comment on above: The validity of the calculated GFR & GFRAA in patients over 70 years has not been determined. Clinical correlation is essential. Serum or plasma low density lipoprotein (LDL) cholesterol measurement (mass/volume)Ordered By: Shanon Caal on 07-06-2022 Cholesterol in LDL [Mass/Vol] 45 mg/dL 0-130 [facility] Serum or plasma urea nitroge n measurement (mass/volume)Ordered By: Shanon Caal on 07-06-2022 Urea nitrogen [Mass/Vol] 14 mg/dL 7-18 [facility] Thin prep Papanicolaou smear with manual screeningOrdered By: Shanon Caal on 07-06-2022 Thin prep Papanicolaou smear with manual screening 25 U/L 15-37 [facility] Thin prep Papanicolaou smear with manual screening 2 5-15 [facility] Whole blood hemoglobin A1c/t otal hemoglobin ratio (mass fraction)Ordered By: Shanon Caal on 07-06-2022 HbA1c (Bld) [Mass fraction] 5.7 % 3.8-5.6 [facility] Comment on above: Normal < 5.7 % Predi abetic 5.7 - 6.4 % Diabetic >or= 6.5 % Please note range changes. Absolute lymphocyte countOrd ered By: Bette Lebron on 06-08-2022 Lymphocytes Auto (Unsp spec) [#/Vol] 2.71 10*3/uL 0.83-4.51 [facility] Basophil percentageOrdered B y: Bette Lebron on 06-08-2022 Basophils/100 WBC (Bld) 0.5 % 0-1 [facility] Chloride [Moles/Vol] 106 mmol/L 98-107 [facility] Eosin[facility] WBC (Bld) 3.5 % 0-5 [facility] Glucose [Mass/Vol] 93 mg/dL 74-106 [facility] Neutrophils (Bld) [#/Vol] 4.2 10*3/uL 2.0-7.7 [facility] Neutrophils/100 WBC (Bld) 52.5 % 47-70 [facility] Potassium [Moles/Vol] 3.7 mmol/L 3.5-5.1 [facility] Sodium [Moles/Vol] 142 mmol/L 136-145 [facility] WBC (Bld) [#/Vol] 8.0 10*3/uL 4.4-11.0 [facility] Blood erythrocytes count (nu mber/volume)Ordered By: Bette Lebron on 06-08-2022 RBC (Bld) [#/Vol] 3.60 10*6/uL 4.6-6.2 [facility] Blood hemoglobin measurement (mass/volume)Ordered By: Bette Lebron on 06-08-2022 Hemoglobin (Bld) [Mass/Vol] 11.2 g/dL 13.0-16.5 [facility] Blood lymphocytes/100 leukoc ytesOrdered By: Bette Lebron on 06-08-2022 Lymphocytes/100 WBC (Bld) 33.7 % 19-41 [facility] Blood monocytes/100 leukocyt esOrdered By: Bette Lebron on 06-08-2022 Monocytes/100 WBC (Bld) 9.6 % 0-10 [facility] Blood platelet mean volumeOr dered By: Bette Lebron on 06-08-2022 Platelet mean volume (Bld) [Entitic vol] 10.1 fL 6.2-12.0 [facility] Determination of erythrocyte mean corpuscular volume (MCV)Ordered By: Bette Lebron on 06-08-2022 MCV (RBC) [Entitic vol] 101.4 fL 80-94 [facility] Hematocrit Auto (Bld) [Volum e fraction]Ordered By: Bette Lebron on 06-08-2022 Hematocrit (Bld) [Volume fraction] 36.5 % 40-54 [facility] - Chemistry and C hemistry - challengeOrdered By: Bette Lebron on 06-08-2022 CO2 [Moles/Vol] 28.0 mmol/L 21.0-32.0 [facility] Urea nitrogen/Creatinine [Mass ratio] 12.5 mg/mg 10-20 [facility] - Hematology and Cell countsOrdered By: Bette Lebron on 06-08-2022 Erythrocyte distribution width (RBC) [Entitic vol] 62.4 fL 35.1-43.9 [facility] Erythrocyte distribution width (RBC) [Ratio] 16.7 % 11.6-14.6 [facility] Immature granulocytes/100 WBC (Bld) 0.200 % 0.0-0.9 [facility] Comment on above: IG% - Immature Granu locytes (promyelocytes, myelocytes and metamyelocytes) > 1% indicates that a LEFT SHIFT is Present. MCH (RBC) [Entitic mass] 31.1 pg 27.0-32.0 [facility] Nucleated RBC/100 WBC (Bld) [Ratio] 0 % 0-5 [facility] MCHC Auto (RBC) [Mass/Vol]Or dered By: Bette Lebron on 06-08-2022 MCHC (RBC) [Mass/Vol] 30.7 g/dL 32-36 [facility] No Panel InformationOrdered By: Bette Lebron on 06-08-2022 Estimated GFR (MDRD) Amer 69 mL/min >60 [facility] Comment on above: GFR Calc Estimated GFR (MDRD) Non-Af Amer 57 mL/min >60 [facility] Comment on above: Non- GFR Calc Thyroid Stimulating Hormone (TSH) 5.76 uIU/mL 0.358-3.74 [facility] Platelets bldOrdered By: Dora haleyanila Lebron on 06-08-2022 Platelets (Bld) [#/Vol] 174 10*3/uL 150-450 [facility] Serum or plasma calcium jose armando urement (mass/volume)Ordered By: Bette Lebron on 06-08-2022 Calcium [Mass/Vol] 9.4 mg/dL 8.5-10.1 [facility] Serum or plasma creatinine m easurement (mass/volume)Ordered By: Bette Lebron on 06-08-2022 Creatinine [Mass/Vol] 1.28 mg/dL 0.70-1.30 [facility] Comment on above: The validity of the calculated GFR & GFRAA in patients over 70 years has not been determined. Clinical correlation is essential. Serum or plasma urea nitroge n measurement (mass/volume)Ordered By: Bette Lebron on 06-08-2022 Urea nitrogen [Mass/Vol] 16 mg/dL 7-18 [facility] Thin prep Papanicolaou smear with manual screeningOrdered By: Bette Lebron on 06-08-2022 Thin prep Papanicolaou smear with manual screening 8 5-15 [facility] Basophil percentageOrdered B y: Shankar Salgado on 05-10-2022 Chloride [Moles/Vol] 106 mmol/L 98-107 [facility] Glucose [Mass/Vol] 106 mg/dL 74-106 [facility] Comment on above: Fasting Glucose resu lt from 100 to 125 mg/dL suggests IMPAIRED HOMEOSTASIS per A.D.A. criteria. Potassium [Moles/Vol] 3.3 mmol/L 3.5-5.1 [facility] Sodium [Moles/Vol] 141 mmol/L 136-145 [facility] WBC (Bld) [#/Vol] 6.2 10*3/uL 4.4-11.0 [facility] Blood erythrocytes count (nu mber/volume)Ordered By: Shankar Salgado on 05-10-2022 RBC (Bld) [#/Vol] 2.66 10*6/uL 4.6-6.2 [facility] Blood hemoglobin measurement (mass/volume)Ordered By: Shankar Salgado on 05-10-2022 Hemoglobin (Bld) [Mass/Vol] 8.1 g/dL 13.0-16.5 [facility] Blood platelet mean volumeOr dered By: Shankar Salgado on 05-10-2022 Platelet mean volume (Bld) [Entitic vol] 10.5 fL 6.2-12.0 [facility] Determination of erythrocyte mean corpuscular volume (MCV)Ordered By: Shankar Salgado on 05-10-2022 MCV (RBC) [Entitic vol] 101.9 fL 80-94 [facility] Hematocrit Auto (Bld) [Volum e fraction]Ordered By: Shankar Salgado on 05-10-2022 Hematocrit (Bld) [Volume fraction] 27.1 % 40-54 [facility] - Chemistry and C hemistry - challengeOrdered By: Shankar Salgado on 05-10-2022 CO2 [Moles/Vol] 29.0 mmol/L 21.0-32.0 [facility] Urea nitrogen/Creatinine [Mass ratio] 11.6 mg/mg 10-20 [facility] - Hematology and Cell countsOrdered By: Shankar Salgado on 05-10-2022 Erythrocyte distribution width (RBC) [Entitic vol] 59.7 fL 35.1-43.9 [facility] Erythrocyte distribution width (RBC) [Ratio] 16.7 % 11.6-14.6 [facility] MCH (RBC) [Entitic mass] 30.5 pg 27.0-32.0 [facility] MCHC Auto (RBC) [Mass/Vol]Or dered By: Shankar Salgado on 05-10-2022 MCHC (RBC) [Mass/Vol] 29.9 g/dL 32-36 [facility] No Panel InformationOrdered By: Shankar Salgado on 05-10-2022 Estimated GFR (MDRD) Amer 81 mL/min >60 [facility] Comment on above: GFR Calc Estimated GFR (MDRD) Non-Af Amer 67 mL/min >60 [facility] Comment on above: Non- GFR Calc Platelets bldOrdered By: Diann Salgado on 05-10-2022 Platelets (Bld) [#/Vol] 202 10*3/uL 150-450 [facility] Serum or plasma calcium jose armando urement (mass/volume)Ordered By: Shankar Salgado on 05-10-2022 Calcium [Mass/Vol] 8.5 mg/dL 8.5-10.1 [facility] Serum or plasma creatinine m easurement (mass/volume)Ordered By: Shankar Salgado on 05-10-2022 Creatinine [Mass/Vol] 1.12 mg/dL 0.70-1.30 [facility] Comment on above: The validity of the calculated GFR & GFRAA in patients over 70 years has not been determined. Clinical correlation is essential. Serum or plasma urea nitroge n measurement (mass/volume)Ordered By: Shankar Salgado on 05-10-2022 Urea nitrogen [Mass/Vol] 13 mg/dL 7-18 [facility] Thin prep Papanicolaou smear with manual screeningOrdered By: Shankar Salgado on 05-10-2022 Thin prep Papanicolaou smear with manual screening 6 5-15 [facility] - Microbiology an d Antimicrobial susceptibilityOrdered By: Dr. Choi on 05-05-2022 Bacteria identified Cx Nom (Bld) No growth in 5 days. [facility] Basophil percentageOrdered B y: Shankar Salgado on 05-03-2022 Chloride [Moles/Vol] 115 mmol/L 98-107 [facility] Cholesterol [Mass/Vol] 77 mg/dL <200 [facility] Comment on above: <200 mg/dL Desirable 200-240 mg/dL Borderline >240 mg/dL High Risk Glucose [Mass/Vol] 108 mg/dL 74-106 [facility] Comment on above: Fasting Glucose resu lt from 100 to 125 mg/dL suggests IMPAIRED HOMEOSTASIS per A.D.A. criteria. Potassium [Moles/Vol] 3.7 mmol/L 3.5-5.1 [facility] Sodium [Moles/Vol] 146 mmol/L 136-145 [facility] Triglyceride [Mass/Vol] 116 mg/dL <199 [facility] Comment on above: The drugs N-Acetylcy steine and Metamizole may falsely depress this assay.Serum Triglycerides Reference Interval Normal <150 mg/dL Borderline high 150 - 199 mg/dL High 200 - 499 mg/dL Very High > or = 500 mg/dL WBC (Bld) [#/Vol] 10.3 10*3/uL 4.4-11.0 [facility] Blood erythrocytes count (nu mber/volume)Ordered By: Shankar Salgado on 05-03-2022 RBC (Bld) [#/Vol] 2.53 10*6/uL 4.6-6.2 [facility] Blood hemoglobin measurement (mass/volume)Ordered By: Shankar Salgado on 05-03-2022 Hemoglobin (Bld) [Mass/Vol] 7.8 g/dL 13.0-16.5 [facility] Blood platelet mean volumeOr dered By: Shankar Salgado on 05-03-2022 Platelet mean volume (Bld) [Entitic vol] 10.7 fL 6.2-12.0 [facility] Culture, urineOrdered By: Dr Elvia Choi on 05-03-2022 Bacteria identified Cx Nom (U) Staphylococcus aureus [facility] Determination of erythrocyte mean corpuscular volume (MCV)Ordered By: Shankar Salgado on 05-03-2022 MCV (RBC) [Entitic vol] 100.0 fL 80-94 [facility] Hematocrit Auto (Bld) [Volum e fraction]Ordered By: Shankar Salgado on 05-03-2022 Hematocrit (Bld) [Volume fraction] 25.3 % 40-54 [facility] - Chemistry and C hemistry - challengeOrdered By: Shankar Salgado on 05-03-2022 CO2 [Moles/Vol] 25.0 mmol/L 21.0-32.0 [facility] Cobalamin (Vitamin B12) [Mass/Vol] 587 pg/mL 211-911 [facility] Urea nitrogen/Creatinine [Mass ratio] 21.7 mg/mg 10-20 [facility] - Hematology and Cell countsOrdered By: Shankar Salgado on 05-03-2022 Erythrocyte distribution width (RBC) [Entitic vol] 62.4 fL 35.1-43.9 [facility] Erythrocyte distribution width (RBC) [Ratio] 17.5 % 11.6-14.6 [facility] MCH (RBC) [Entitic mass] 30.8 pg 27.0-32.0 [facility] MCHC Auto (RBC) [Mass/Vol]Or dered By: Shankar Salgado on 05-03-2022 MCHC (RBC) [Mass/Vol] 30.8 g/dL 32-36 [facility] No Panel InformationOrdered By: Shankar Salgado on 05-03-2022 Estimated GFR (MDRD) Amer 86 mL/min >60 [facility] Comment on above: GFR Calc Estimated GFR (MDRD) Non-Af Amer 71 mL/min >60 [facility] Comment on above: Non- GFR Calc Thyroid Stimulating Hormone (TSH) 3.95 uIU/mL 0.358-3.74 [facility] Vitamin D 25-Hydroxy 34.6 ng/mL [facility] Comment on above: Vitamin D 25(OH) Sta tus Range Deficiency <20 ng/mL (50nmol/L) Insufficiency 20 - 30 ng/mL (50 - 75 nmol/L) Sufficiency 30 - 100 ng/mL (75 - 250 nmol/L) Toxicity >100 ng/mL (>250 nmol/L) Platelets bldOrdered By: Diann Salgado on 05-03-2022 Platelets (Bld) [#/Vol] 159 10*3/uL 150-450 [facility] Serum or plasma calcium jose armando urement (mass/volume)Ordered By: Shankar Salgado on 05-03-2022 Calcium [Mass/Vol] 7.9 mg/dL 8.5-10.1 [facility] Serum or plasma cholesterol in HDL measurement (mass/volume)Ordered By: Shankar Salgado on 05-03-2022 Cholesterol in HDL [Mass/Vol] 21 mg/dL >40 [facility] Comment on above: The drugs N-Acetylcy steine and Metamizole may falsely depress this assay. Reference Range HDL <40 mg/dL Low HDL Cholesterol HDL >or= 60 mg/dL High HDL Cholesterol Serum or plasma cholesterol in VLDL measurement (mass/volume)Ordered By: Shankar Salgado on 05-03-2022 Cholesterol in VLDL [Mass/Vol] 23 mg/dL 5-40 [facility] Serum or plasma creatinine m easurement (mass/volume)Ordered By: Shankar Salgado on 05-03-2022 Creatinine [Mass/Vol] 1.06 mg/dL 0.70-1.30 [facility] Comment on above: The validity of the calculated GFR & GFRAA in patients over 70 years has not been determined. Clinical correlation is essential. Serum or plasma low density lipoprotein (LDL) cholesterol measurement (mass/volume)Ordered By: Shankar Salgado on 05-03-2022 Cholesterol in LDL [Mass/Vol] 33 mg/dL 0-130 [facility] Serum or plasma urea nitroge n measurement (mass/volume)Ordered By: Shankar Salgado on 05-03-2022 Urea nitrogen [Mass/Vol] 23 mg/dL 7-18 [facility] Thin prep Papanicolaou smear with manual screeningOrdered By: Shankar Salgado on 05-03-2022 Thin prep Papanicolaou smear with manual screening 6 5-15 [facility] Absolute lymphocyte countOrd ered By: Dr. Choi on 05-02-2022 Lymphocytes Auto (Unsp spec) [#/Vol] 1.95 10*3/uL 0.83-4.51 [facility] Basophil percentageOrdered B y: Dr. Choi on 05-02-2022 Basophil percentage 2.1 mg/dL 2.5-4.9 [facility] Basophils/100 WBC (Bld) 0.2 % 0-1 [facility] Chloride [Moles/Vol] 115 mmol/L 98-107 [facility] Eosinophils/100 WBC (Bld) 2.7 % 0-5 [facility] Glucose [Mass/Vol] 117 mg/dL 74-106 [facility] Comment on above: Fasting Glucose resu lt from 100 to 125 mg/dL suggests IMPAIRED HOMEOSTASIS per A.D.A. criteria. Neutrophils (Bld) [#/Vol] 8.2 10*3/uL 2.0-7.7 [facility] Neutrophils/100 WBC (Bld) 71.9 % 47-70 [facility] Potassium [Moles/Vol] 3.2 mmol/L 3.5-5.1 [facility] Sodium [Moles/Vol] 146 mmol/L 136-145 [facility] WBC (Bld) [#/Vol] 11.4 10*3/uL 4.4-11.0 [facility] Blood erythrocytes count (nu mber/volume)Ordered By: Dr. Choi on 05-02-2022 RBC (Bld) [#/Vol] 2.48 10*6/uL 4.6-6.2 [facility] Blood hemoglobin measurement (mass/volume)Ordered By: Dr. Choi on 05-02-2022 Hemoglobin (Bld) [Mass/Vol] 7.6 g/dL 13.0-16.5 [facility] Blood lymphocytes/100 leukoc ytesOrdered By: Dr. Choi on 05-02-2022 Lymphocytes/100 WBC (Bld) 17.1 % 19-41 [facility] Blood monocytes/100 leukocyt esOrdered By: Dr. Choi on 05-02-2022 Monocytes/100 WBC (Bld) 6.6 % 0-10 [facility] Blood platelet mean volumeOr dered By: Dr. Choi on 05-02-2022 Platelet mean volume (Bld) [Entitic vol] 10.5 fL 6.2-12.0 [facility] Determination of erythrocyte mean corpuscular volume (MCV)Ordered By: Dr. Choi on 05-02-2022 MCV (RBC) [Entitic vol] 99.2 fL 80-94 [facility] Hematocrit Auto (Bld) [Volum e fraction]Ordered By: Dr. Choi on 05-02-2022 Hematocrit (Bld) [Volume fraction] 24.6 % 40-54 [facility] - Chemistry and C hemistry - challengeOrdered By: Dr. Choi on 05-02-2022 CO2 [Moles/Vol] 25.0 mmol/L 21.0-32.0 [facility] Magnesium [Mass/Vol] 2.4 mg/dL 1.6-2.6 [facility] Urea nitrogen/Creatinine [Mass ratio] 22.9 mg/mg 10-20 [facility] - Hematology and Cell countsOrdered By: Dr. Choi on 05-02-2022 Erythrocyte distribution width (RBC) [Entitic vol] 63.8 fL 35.1-43.9 [facility] Erythrocyte distribution width (RBC) [Ratio] 18.2 % 11.6-14.6 [facility] Immature granulocytes/100 WBC (Bld) 1.500 % 0.0-0.9 [facility] Comment on above: IG% - Immature Granu locytes (promyelocytes, myelocytes and metamyelocytes) > 1% indicates that a LEFT SHIFT is Present. MCH (RBC) [Entitic mass] 30.6 pg 27.0-32.0 [facility] Nucleated RBC/100 WBC (Bld) [Ratio] 0 % 0-5 [facility] MCHC Auto (RBC) [Mass/Vol]Or dered By: Dr. Choi on 05-02-2022 MCHC (RBC) [Mass/Vol] 30.9 g/dL 32-36 [facility] No Panel InformationOrdered By: Dr. Choi on 05-02-2022 Estimated Creatinine Clearance Calc 47.96 ml/min [facility] Estimated GFR (MDRD) Amer 83 mL/min >60 [facility] Comment on above: GFR Calc Estimated GFR (MDRD) Non-Af Amer 69 mL/min >60 [facility] Comment on above: Non- GFR Calc Platelets bldOrdered By: Dr. Choi on 05-02-2022 Platelets (Bld) [#/Vol] 151 10*3/uL 150-450 [facility] Serum or plasma calcium jose armando urement (mass/volume)Ordered By: Dr. Choi on 05-02-2022 Calcium [Mass/Vol] 7.8 mg/dL 8.5-10.1 [facility] Serum or plasma creatinine m easurement (mass/volume)Ordered By: Dr. Choi on 05-02-2022 Creatinine [Mass/Vol] 1.09 mg/dL 0.70-1.30 [facility] Comment on above: The validity of the calculated GFR & GFRAA in patients over 70 years has not been determined. Clinical correlation is essential. Serum or plasma urea nitroge n measurement (mass/volume)Ordered By: Dr. Choi on 05-02-2022 Urea nitrogen [Mass/Vol] 25 mg/dL 7-18 [facility] Thin prep Papanicolaou smear with manual screeningOrdered By: Dr. Choi on 05-02-2022 Thin prep Papanicolaou smear with manual screening 6 5-15 [facility] INR in Blood by Coagulation assayOrdered By: Dr. Aguila on 05-01-2022 INR Coag (Bld) [Relative time] 1.3 {INR} [facility] - CoagulationOrde red By: Dr. Aguila on 05-01-2022 aPTT Coag (Bld) [Time] 48.5 s 24.1-36.2 [facility] PT Coag (PPP) [Time] 16.2 s 11.7-14.9 [facility] Basophil percentageOrdered B y: Dr. Choi on 04-30-2022 Bilirubin [Mass/Vol] 0.50 mg/dL 0.20-1.00 [facility] Comment on above: For patients on eltr ombopag therapy, use of Dimension [place] TBIL is not recommended. Protein [Mass/Vol] 5.3 g/dL 6.4-8.2 [facility] Laboratory - Chemistry and C hemistry - challengeOrdered By: Dr. Choi on 04-30-2022 ALP [Catalytic activity/Vol] 64 U/L 45-117 [facility] ALT [Catalytic activity/Vol] 111 U/L 16-61 [facility] Globulin (S) [Mass/Vol] 3.3 g/dL 2.2-4.2 [facility] Serum or plasma albumin jose armando urement (mass/volume)Ordered By: Dr. Choi on 04-30-2022 Albumin [Mass/Vol] 2.0 g/dL 3.2-5.0 [facility] Serum or plasma albumin/glob ulin mass ratioOrdered By: Dr. Choi on 04-30-2022 Albumin/Globulin [Mass ratio] 0.6 {ratio} 0.9-2.4 [facility] Thin prep Papanicolaou smear with manual screeningOrdered By: Dr. Choi on 04-30-2022 Thin prep Papanicolaou smear with manual screening 49 U/L 15-37 [facility] Bilirubin Test strip Ql (U)O rdered By: Dr. Choi on 04-29-2022 Bilirubin Ql (U) Negative Negative [facility] Ketones Test strip Ql (U)Ord ered By: Dr. Choi on 04-29-2022 Ketones Ql (U) Negative Negative [facility] Nitrite Test strip Ql (U)Ord ered By: Dr. Choi on 04-29-2022 Nitrite Ql (U) Positive Negative [facility] No Panel InformationOrdered By: Dr. Choi on 04-29-2022 Thyroid Stimulating Hormone (TSH) 2.84 uIU/mL 0.358-3.74 [facility] Protein Test strip Ql (U)Ord ered By: Dr. Choi on 04-29-2022 Protein Ql (U) 100 mg/dl Negative [facility] Urine blood detectionOrdered By: Dr. Choi on 04-29-2022 RBC Ql (U) 250 /ul Negative [facility] Urine clarityOrdered By: Dr. Choi on 04-29-2022 Clarity (U) Cloudy Clear [facility] Urine color determinationOrd ered By: Dr. Choi on 04-29-2022 Color (U) Yellow Yellow [facility] Urine glucose detectionOrder ed By: Dr. Choi on 04-29-2022 Glucose Ql (U) Normal mg/dl Normal [facility] Urine leukocyte esterase det ection by dipstickOrdered By: Dr. Choi on 04-29-2022 Leukocyte esterase Test strip Ql (U) 500 /ul Negative [facility] Urine pHOrdered By: Dr. Choi on 04-29-2022 pH (U) 7.0 [pH] 5.0 - 8.0 [facility] Urine specific gravity measu rementOrdered By: Dr. Choi on 04-29-2022 Specific gravity (U) [Rel density] 1.010 1.002-1.030 [facility] Urobilinogen Auto test strip Ql (U)Ordered By: Dr. Choi on 04-29-2022 Urobilinogen Ql (U) Normal mg/dl Normal [facility] Blood manual differential co mment interpretation (narrative result)Ordered By: Dr. Walker on 04-26-2022 Manual differential comment Christiano (Bld) [Interp] SCANNED [facility] Review by pathologistOrdered By: Dr. Walker on 04-26-2022 Pathologist review Christiano (Unsp spec) [Interp] Reviewed [facility] Comment on above: Previous reported re sult: Ruth chua Edited by: MARIO on 04/26/22:1241Neutrophilic leukocytosis.Normocytic anemia.Thrombocytopenia.Clinical correlation necessary.Maury Szymanski M.D. 04/26/22 AMENDED REPORT 04/26/22 1241 PATH REV previously reported as: Ruth chua Whole blood hemoglobin A1c/t otal hemoglobin ratio (mass fraction)Ordered By: Dr. Dan on 04-25-2022 HbA1c (Bld) [Mass fraction] 5.6 % 3.8-5.6 [facility] Comment on above: Normal < 5.7 % Predi abetic 5.7 - 6.4 % Diabetic >or= 6.5 % Please note range changes. Absolute lymphocyte countOrd ered By: Dr. Hammer on 04-24-2022 Lymphocytes Auto (Unsp spec) [#/Vol] 2.63 10*3/uL 0.83-4.51 [facility] Basophil percentageOrdered B y: Dr. Hammer on 04-24-2022 Basophil percentage 0-5 SEEN /hpf 0-5 [facility] Basophils/100 WBC (Bld) 0.2 % 0-1 [facility] Bilirubin [Mass/Vol] 0.30 mg/dL 0.20-1.00 [facility] Comment on above: For patients on eltr ombopag therapy, use of Dimension [place] TBIL is not recommended. Chloride [Moles/Vol] 109 mmol/L 98-107 [facility] Eosinophils/100 WBC (Bld) 0.0 % 0-5 [facility] Glucose [Mass/Vol] 247 mg/dL 74-106 [facility] Comment on above: Glucose result great er than or equal to 200 mg/dLsuggests DIABETES MELLITUS per A.D.A. criteria. Neutrophils (Bld) [#/Vol] 16.8 10*3/uL 2.0-7.7 [facility] Neutrophils/100 WBC (Bld) 78.9 % 47-70 [facility] Potassium [Moles/Vol] 3.8 mmol/L 3.5-5.1 [facility] Protein [Mass/Vol] 6.5 g/dL 6.4-8.2 [facility] Sodium [Moles/Vol] 145 mmol/L 136-145 [facility] WBC (Bld) [#/Vol] 21.3 10*3/uL 4.4-11.0 [facility] Blood erythrocytes count (nu mber/volume)Ordered By: Dr. Hammer on 04-24-2022 RBC (Bld) [#/Vol] 2.60 10*6/uL 4.6-6.2 [facility] Blood hemoglobin measurement (mass/volume)Ordered By: Dr. Hammer on 04-24-2022 Hemoglobin (Bld) [Mass/Vol] 8.3 g/dL 13.0-16.5 [facility] Blood lymphocytes/100 leukoc ytesOrdered By: Dr. Hammer on 04-24-2022 Lymphocytes/100 WBC (Bld) 12.3 % 19-41 [facility] Blood manual differential co mment interpretation (narrative result)Ordered By: Dr. Hammer on 04-24-2022 Manual differential comment Christiano (Bld) [Interp] SCANNED [facility] Comment on above: MONOCYTOSIS NOTED Blood monocytes/100 leukocyt esOrdered By: Dr. Hammer on 04-24-2022 Monocytes/100 WBC (Bld) 7.6 % 0-10 [facility] Blood platelet mean volumeOr dered By: Dr. Hammer on 04-24-2022 Platelet mean volume (Bld) [Entitic vol] 11.5 fL 6.2-12.0 [facility] Determination of erythrocyte mean corpuscular volume (MCV)Ordered By: Dr. Hammer on 04-24-2022 MCV (RBC) [Entitic vol] 106.9 fL 80-94 [facility] Hematocrit Auto (Bld) [Volum e fraction]Ordered By: Dr. Hammer on 04-24-2022 Hematocrit (Bld) [Volume fraction] 27.8 % 40-54 [facility] Hyaline casts LM.LPF (Urine sed) [#/Area]Ordered By: Dr. Hammer on 04-24-2022 Hyaline casts (Urine sed) [#/Area] 5 /[LPF] 0-5 [facility] INR in Blood by Coagulation assayOrdered By: Dr. Hammer on 04-24-2022 INR Coag (Bld) [Relative time] 1.3 {INR} [facility] Laboratory - Chemistry and C hemistry - challengeOrdered By: Dr. Hammer on 04-24-2022 ALP [Catalytic activity/Vol] 47 U/L 45-117 [facility] ALT [Catalytic activity/Vol] 19 U/L 16-61 [facility] CO2 [Moles/Vol] 15.0 mmol/L 21.0-32.0 [facility] Globulin (S) [Mass/Vol] 3.4 g/dL 2.2-4.2 [facility] Urea nitrogen/Creatinine [Mass ratio] 21.4 mg/mg 10-20 [facility] Laboratory - CoagulationOrde red By: Dr. Hammer on 04-24-2022 aPTT Coag (Bld) [Time] 27.5 s 24.1-36.2 [facility] PT Coag (PPP) [Time] 15.6 s 11.7-14.9 [facility] Laboratory - Hematology and Cell countsOrdered By: Dr. Hammer on 04-24-2022 Erythrocyte distribution width (RBC) [Entitic vol] 58.1 fL 35.1-43.9 [facility] Erythrocyte distribution width (RBC) [Ratio] 14.9 % 11.6-14.6 [facility] Immature granulocytes/100 WBC (Bld) 1.000 % 0.0-0.9 [facility] Comment on above: IG% - Immature Granu locytes (promyelocytes, myelocytes and metamyelocytes) > 1% indicates that a LEFT SHIFT is Present. MCH (RBC) [Entitic mass] 31.9 pg 27.0-32.0 [facility] Nucleated RBC/100 WBC (Bld) [Ratio] 0 % 0-5 [facility] MCHC Auto (RBC) [Mass/Vol]Or dered By: Dr. Hammer on 04-24-2022 MCHC (RBC) [Mass/Vol] 29.9 g/dL 32-36 [facility] Mucus LM Ql (Urine sed)Order ed By: Dr. Hammer on 04-24-2022 Mucus Ql (Urine sed) 0 SEEN /hpf [facility] No Panel InformationOrdered By: Dr. Hammer on 04-24-2022 Estimated Creatinine Clearance Calc 20.74 ml/min [facility] Estimated GFR (MDRD) Amer 33 mL/min >60 [facility] Comment on above: GFR Calc Estimated GFR (MDRD) Non-Af Amer 27 mL/min >60 [facility] Comment on above: Non- GFR Calc Platelets bldOrdered By: Dr. Hammer on 04-24-2022 Platelets (Bld) [#/Vol] 175 10*3/uL 150-450 [facility] Review by pathologistOrdered By: Dr. Hammer on 04-24-2022 Pathologist review Christiano (Unsp spec) [Interp] May foll [facility] Serum or plasma acetone jose armando urement (mass/volume)Ordered By: Dr. Hammer on 04-24-2022 Acetone [Mass/Vol] Negative NEG [facility] Serum or plasma albumin jose armando urement (mass/volume)Ordered By: Dr. Hammer on 04-24-2022 Albumin [Mass/Vol] 3.1 g/dL 3.2-5.0 [facility] Serum or plasma albumin/glob ulin mass ratioOrdered By: Dr. Hammer on 04-24-2022 Albumin/Globulin [Mass ratio] 0.9 {ratio} 0.9-2.4 [facility] Serum or plasma calcium jose armando urement (mass/volume)Ordered By: Dr. Hammer on 04-24-2022 Calcium [Mass/Vol] 8.5 mg/dL 8.5-10.1 [facility] Serum or plasma creatinine m easurement (mass/volume)Ordered By: Dr. Hammer on 04-24-2022 Creatinine [Mass/Vol] 2.43 mg/dL 0.70-1.30 [facility] Comment on above: The validity of the calculated GFR & GFRAA in patients over 70 years has not been determined. Clinical correlation is essential. Serum or plasma urea nitroge n measurement (mass/volume)Ordered By: Dr. Hammer on 04-24-2022 Urea nitrogen [Mass/Vol] 52 mg/dL 7-18 [facility] Squamous epithelial cells de tection in urine sediment by light microscopyOrdered By: Dr. Hammer on 04-24-2022 Epithelial cells.squamous LM Ql (Urine sed) 0 SEEN /hpf 0-5 [facility] Thin prep Papanicolaou smear with manual screeningOrdered By: Dr. Hammer on 04-24-2022 Thin prep Papanicolaou smear with manual screening 30 U/L 15-37 [facility] Thin prep Papanicolaou smear with manual screening 21 5-15 [facility] Urine blood detectionOrdered By: Dr. Hammer on 04-24-2022 RBC Ql (U) 0 SEEN /hpf 0-5 [facility] Urine sediment bacteria coun t by microscopy (number/high power field)Ordered By: Dr. Hammer on 04-24-2022 Bacteria LM.HPF (Urine sed) [#/Area] RARE /hpf None Seen [facility] Basophil percentageOrdered B y: Shanon Caal on 01-06-2022 Bilirubin [Mass/Vol] 0.60 mg/dL 0.20-1.00 [facility] Comment on above: For patients on eltr ombopag therapy, use of Dimension [place] TBIL is not recommended. Chloride [Moles/Vol] 107 mmol/L 98-107 [facility] Cholesterol [Mass/Vol] 95 mg/dL <200 [facility] Comment on above: <200 mg/dL Desirable 200-240 mg/dL Borderline >240 mg/dL High Risk Glucose [Mass/Vol] 113 mg/dL 74-106 [facility] Comment on above: Fasting Glucose resu lt from 100 to 125 mg/dL suggests IMPAIRED HOMEOSTASIS per A.D.A. criteria. Potassium [Moles/Vol] 3.9 mmol/L 3.5-5.1 [facility] Protein [Mass/Vol] 7.7 g/dL 6.4-8.2 [facility] Sodium [Moles/Vol] 143 mmol/L 136-145 [facility] Triglyceride [Mass/Vol] 150 mg/dL <199 [facility] Comment on above: The drugs N-Acetylcy steine and Metamizole may falsely depress this assay.Serum Triglycerides Reference Interval Normal <150 mg/dL Borderline high 150 - 199 mg/dL High 200 - 499 mg/dL Very High > or = 500 mg/dL WBC (Bld) [#/Vol] 8.3 10*3/uL 4.4-11.0 [facility] Blood erythrocytes count (nu mber/volume)Ordered By: Shanon Caal on 01-06-2022 RBC (Bld) [#/Vol] 4.05 10*6/uL 4.6-6.2 [facility] Blood hemoglobin measurement (mass/volume)Ordered By: Shanon Caal on 01-06-2022 Hemoglobin (Bld) [Mass/Vol] 13.1 g/dL 13.0-16.5 [facility] Blood platelet mean volumeOr dered By: Shanon Caal on 01-06-2022 Platelet mean volume (Bld) [Entitic vol] 10.5 fL 6.2-12.0 [facility] Determination of erythrocyte mean corpuscular volume (MCV)Ordered By: Shanon Caal on 01-06-2022 MCV (RBC) [Entitic vol] 99.3 fL 80-94 [facility] Hematocrit Auto (Bld) [Volum e fraction]Ordered By: Shanon Caal on 01-06-2022 Hematocrit (Bld) [Volume fraction] 40.2 % 40-54 [facility] Laboratory - Chemistry and C hemistry - challengeOrdered By: Shanon Caal on 01-06-2022 ALP [Catalytic activity/Vol] 76 U/L 45-117 [facility] ALT [Catalytic activity/Vol] 22 U/L 16-61 [facility] CO2 [Moles/Vol] 31.0 mmol/L 21.0-32.0 [facility] Globulin (S) [Mass/Vol] 4.2 g/dL 2.2-4.2 [facility] Natriuretic peptide B (Bld) [Mass/Vol] 108.8 pg/mL 0-100 [facility] Urea nitrogen/Creatinine [Mass ratio] 16.2 mg/mg 10-20 [facility] - Hematology and Cell countsOrdered By: Shanon Caal on 01-06-2022 Erythrocyte distribution width (RBC) [Entitic vol] 50.9 fL 35.1-43.9 [facility] Erythrocyte distribution width (RBC) [Ratio] 13.9 % 11.6-14.6 [facility] MCH (RBC) [Entitic mass] 32.3 pg 27.0-32.0 [facility] MCHC Auto (RBC) [Mass/Vol]Or dered By: Shanon Caal on 01-06-2022 MCHC (RBC) [Mass/Vol] 32.6 g/dL 32-36 [facility] No Panel InformationOrdered By: Shanon Caal on 01-06-2022 Estimated GFR (MDRD) Amer 65 mL/min >60 [facility] Comment on above: GFR Calc Estimated GFR (MDRD) Non-Af Amer 53 mL/min >60 [facility] Comment on above: Non- GFR Calc Vitamin D 25-Hydroxy 42.4 ng/mL [facility] Comment on above: Vitamin D 25(OH) Sta tus Range Deficiency <20 ng/mL (50nmol/L) Insufficiency 20 - 30 ng/mL (50 - 75 nmol/L) Sufficiency 30 - 100 ng/mL (75 - 250 nmol/L) Toxicity >100 ng/mL (>250 nmol/L) Platelets bldOrdered By: Jin Caal on 01-06-2022 Platelets (Bld) [#/Vol] 118 10*3/uL 150-450 [facility] Serum or plasma albumin jose armando urement (mass/volume)Ordered By: Shanon Caal on 01-06-2022 Albumin [Mass/Vol] 3.5 g/dL 3.2-5.0 [facility] Serum or plasma albumin/glob ulin mass ratioOrdered By: Shanon Caal on 01-06-2022 Albumin/Globulin [Mass ratio] 0.8 {ratio} 0.9-2.4 [facility] Serum or plasma calcium jose armando urement (mass/volume)Ordered By: Shanon Caal on 01-06-2022 Calcium [Mass/Vol] 9.4 mg/dL 8.5-10.1 [facility] Serum or plasma cholesterol in HDL measurement (mass/volume)Ordered By: Shanon Caal on 01-06-2022 Cholesterol in HDL [Mass/Vol] 29 mg/dL >40 [facility] Comment on above: The drugs N-Acetylcy steine and Metamizole may falsely depress this assay. Reference Range HDL <40 mg/dL Low HDL Cholesterol HDL >or= 60 mg/dL High HDL Cholesterol Serum or plasma cholesterol in VLDL measurement (mass/volume)Ordered By: Shanon Caal on 01-06-2022 Cholesterol in VLDL [Mass/Vol] 30 mg/dL 5-40 [facility] Serum or plasma creatinine m easurement (mass/volume)Ordered By: Shanon Caal on 01-06-2022 Creatinine [Mass/Vol] 1.36 mg/dL 0.70-1.30 [facility] Comment on above: The validity of the calculated GFR & GFRAA in patients over 70 years has not been determined. Clinical correlation is essential. Serum or plasma low density lipoprotein (LDL) cholesterol measurement (mass/volume)Ordered By: Shanon Caal on 01-06-2022 Cholesterol in LDL [Mass/Vol] 36 mg/dL 0-130 [facility] Serum or plasma urea nitroge n measurement (mass/volume)Ordered By: Shanon Caal on 01-06-2022 Urea nitrogen [Mass/Vol] 22 mg/dL 7-18 [facility] Thin prep Papanicolaou smear with manual screeningOrdered By: Shanon Wilsonkins on 01-06-2022 Thin prep Papanicolaou smear with manual screening 25 U/L 15-37 [facility] Thin prep Papanicolaou smear with manual screening 5 5-15 [facility] Basophil percentageon 2021 Bilirubin [Mass/Vol] 0.50 mg/dL 0.20-1.00 [facility] Work Phone: Comment on above: For patients on eltr ombopag therapy, use of Dimension [place] TBIL is not recommended. Chloride [Moles/Vol] 107 mmol/L 98-107 [facility] Work Phone: Cholesterol [Mass/Vol] 103 mg/dL <200 [facility] Work Phone: Comment on above: <200 mg/dL Desirable 200-240 mg/dL Borderline >240 mg/dL High Risk Glucose [Mass/Vol] 103 mg/dL 74-106 [facility] Work Phone: Comment on above: Fasting Glucose resu lt from 100 to 125 mg/dL suggests IMPAIRED HOMEOSTASIS per A.D.A. criteria. Potassium [Moles/Vol] 3.7 mmol/L 3.5-5.1 [facility] Work Phone: Protein [Mass/Vol] 7.9 g/dL 6.4-8.2 [facility] Work Phone: Sodium [Moles/Vol] 142 mmol/L 136-145 [facility] Work Phone: [phone] Triglyceride [Mass/Vol] 187 mg/dL [facility] Work Phone: [phone] Comment on above: The drugs N-Acetylcy steine and Metamizole may falsely depress this assay.Serum Triglycerides Reference Interval Normal <150 mg/dL Borderline high 150 - 199 mg/dL High 200 - 499 mg/dL Very High > or = 500 mg/dL WBC (Bld) [#/Vol] 8.1 10*3/uL 4.4-11.0 [facility] Work Phone: [phone] Blood erythrocytes count (nu mber/volume)on 06-29-2021 RBC (Bld) [#/Vol] 3.91 10*6/uL 4.6-6.2 [facility] Work Phone: [phone] Blood hemoglobin measurement (mass/volume)on 06-29-2021 Hemoglobin (Bld) [Mass/Vol] 12.3 g/dL 13.0-16.5 [facility] Work Phone: [phone] Blood platelet mean volumeon 06-29-2021 Platelet mean volume (Bld) [Entitic vol] 10.7 fL 6.2-12.0 [facility] Work Phone: [phone] Determination of erythrocyte mean corpuscular volume (MCV)on 06-29-2021 MCV (RBC) [Entitic vol] 99.0 fL 80-94 [facility] Work Phone: [phone] Hematocrit Auto (Bld) [Volum e fraction]on 06-29-2021 Hematocrit (Bld) [Volume fraction] 38.7 % 40-54 [facility] Work Phone: [phone] Laboratory - Chemistry and C hemistry - challengeon 06-29-2021 ALP [Catalytic activity/Vol] 70 U/L 45-117 [facility] Work Phone: [phone] ALT [Catalytic activity/Vol] 18 U/L 16-61 [facility] Work Phone: [phone] CO2 [Moles/Vol] 31.0 mmol/L 21.0-32.0 [facility] Work Phone: [phone] Globulin (S) [Mass/Vol] 4.3 g/dL 2.2-4.2 [facility] Work Phone: [phone] Urea nitrogen/Creatinine [Mass ratio] 14.2 mg/mg 10-20 [facility] Work Phone: [phone] Laboratory - Hematology and Cell countson 06-29-2021 Erythrocyte distribution width (RBC) [Entitic vol] 53.9 fL 35.1-43.9 [facility] Work Phone: [phone] Erythrocyte distribution width (RBC) [Ratio] 14.7 % 11.6-14.6 [facility] Work Phone: [phone] MCH (RBC) [Entitic mass] 31.5 pg 27.0-32.0 [facility] Work Phone: [phone] MCHC Auto (RBC) [Mass/Vol]on 06-29-2021 MCHC (RBC) [Mass/Vol] 31.8 g/dL 32-36 [facility] Work Phone: No Panel Informationon 06-29 Estimated GFR (MDRD) Amer 75 mL/min >60 [facility] Work Phone: [phone] Comment on above: GFR Calc Estimated GFR (MDRD) Non-Af Amer 62 mL/min >60 [facility] Work Phone: [phone] Comment on above: Non- GFR Calc Vitamin D 25-Hydroxy 39.9 ng/mL [facility] Work Phone: [phone] Comment on above: Vitamin D 25(OH) Sta tus Range Deficiency <20 ng/mL (50nmol/L) Insufficiency 20 - 30 ng/mL (50 - 75 nmol/L) Sufficiency 30 - 100 ng/mL (75 - 250 nmol/L) Toxicity >100 ng/mL (>250 nmol/L) Platelets bldon 06-29-2021 Platelets (Bld) [#/Vol] 142 10*3/uL 150-450 [facility] Work Phone: [phone] Serum or plasma albumin jose armando urement (mass/volume)on 06-29-2021 Albumin [Mass/Vol] 3.6 g/dL 3.2-5.0 [facility] Work Phone: Serum or plasma albumin/glob ulin mass ratioon 06-29-2021 Albumin/Globulin [Mass ratio] 0.8 {ratio} 0.9-2.4 [facility] Work Phone: Serum or plasma calcium jose armando urement (mass/volume)on 06-29-2021 Calcium [Mass/Vol] 8.8 mg/dL 8.5-10.1 [facility] Work Phone: Serum or plasma cholesterol in HDL measurement (mass/volume)on 06-29-2021 Cholesterol in HDL [Mass/Vol] 28 mg/dL [facility] Work Phone: Comment on above: The drugs N-Acetylcy steine and Metamizole may falsely depress this assay. Reference Range HDL <40 mg/dL Low HDL Cholesterol HDL >or= 60 mg/dL High HDL Cholesterol Serum or plasma cholesterol in VLDL measurement (mass/volume)on 06-29-2021 Cholesterol in VLDL [Mass/Vol] 37 mg/dL 5-40 [facility] Work Phone: Serum or plasma creatinine m easurement (mass/volume)on 06-29-2021 Creatinine [Mass/Vol] 1.20 mg/dL 0.70-1.30 [facility] Work Phone: Comment on above: The validity of the calculated GFR & GFRAA in patients over 70 years has not been determined. Clinical correlation is essential. Serum or plasma low density lipoprotein (LDL) cholesterol measurement (mass/volume)on 06-29-2021 Cholesterol in LDL [Mass/Vol] 38 mg/dL 0-130 [facility] Work Phone: Serum or plasma urea nitroge n measurement (mass/volume)on 06-29-2021 Urea nitrogen [Mass/Vol] 17 mg/dL 7-18 [facility] Work Phone: Thin prep Papanicolaou smear with manual screeningon 06-29-2021 Thin prep Papanicolaou smear with manual screening 20 U/L 15-37 [facility] Work Phone: Thin prep Papanicolaou smear with manual screening 4 5-15 [facility] Work Phone: .Auto Diffon 06-21-2019 Ammonia (P) [Mass/Vol] 0.80 10 3/mcL Normal 0.15-1.00 [facility] ([place]) Comment on above: Performed By: #### C ALEXANDRE DUGGAN ANEU #### [place] [address] #### LIPID, CMP, GFR, VIDH #### [address] [address] Basophils (Bld) [#/Vol] 0.00 10 3/mcL Normal 0.00-0.19 [facility] ([place]) Comment on above: Performed By: #### ALEXANDRE AMADOR, ANEU #### [place] [address] #### LIPID, CMP, GFR, VIDH #### [address] [address] Basophils/100 WBC (Bld) 0.4 % Normal 0.0-2.5 [facility] ([place]) Comment on above: Performed By: #### ALEXANDRE AMADOR ANEU #### [place] [address] #### LIPID, CMP, GFR, VIDH #### [address] [address] Eosinophils (Bld) [#/Vol] 0.10 10 3/mcL Normal 0.00-0. 40 [facility] ([place]) Comment on above: Performed By: #### C ALEXANDRE DUGGAN, ANEU #### [place] [address] #### LIPID, CMP, GFR, VIDH #### [address] [address] Eosinophils/100 WBC (Bld) 1.6 % Normal 0.0-7.0 [facility] ([place]) Comment on above: Performed By: #### ALEXANDRE AMADOR, ANEU #### [address] [address] #### LIPID, CMP, GFR, VIDH #### [address] [address] Lymphocytes (Bld) [#/Vol] 2.40 10 3/mcL Normal 0.77-3. 85 [facility] ([place]) Comment on above: Performed By: #### C BCMIGUELIFF, ANEU #### [place] [address] #### LIPID, CMP, GFR, VIDH #### [address] [address] Lymphocytes/100 WBC (Bld) 35.1 % Normal 10.0-50.0 [facility] ([place]) Comment on above: Performed By: #### C BC ADIFF, ANEU #### [place] [address] #### LIPID, CMP, GFR, VIDH #### [address] [address] Monocytes/100 WBC (Bld) 12.1 % Normal 1.7-13.0 A [facility] ([place]) Comment on above: Performed By: #### C MIGUEL DUGGANIFF, ANEU #### [address] [address] #### LIPID, CMP, GFR, VIDH #### [address] [address] Neutrophils/100 WBC (Bld) 50.8 % Normal 37.0-80.0 [facility] ([place]) Comment on above: Performed By: #### C BC, ADIFF, ANEU #### [place] [address] #### LIPID, CMP, GFR, VIDH #### [address] [address] .GFRon 06-21-2019 GFR 65 ml/min/1.73sqm Normal [facility] ([place]) Comment on above: Result Comment: GFR Population [...] By: #### C BC, ADIFF, ANEU #### [address] [address] #### LIPID, CMP, GFR, VIDH #### [address] [address] GFR Non- 54 ml/min/1.73sqm Normal [facility] ([place]) Comment on above: Result Comment: GFR Population [...] mL/min/1.73 square meters Performed By: #### C BCALEXANDRE, ANEU #### [address] [address] #### LIPID, CMP, GFR, VIDH #### [address] [address] .NEUABSon 06-21-2019 Neutrophils (Bld) [#/Vol] 3.50 10 3/mcL Normal 2.85-6. 16 [facility] ([place] Comment on above: Performed By: #### C BCALEXANDRE, ANEU #### [place] [address] #### LIPID, CMP, GFR, VIDH #### [address] [address] A1Con 06-21-2019 HbA1c (Bld) [Mass fraction] 6.3 % Normal 4.3-6.4 [facility] ([place] Comment on above: Performed By: #### ALEXANDRE AMADOR, ANEU #### [place] [address] #### LIPID, CMP, GFR, VIDH #### [address] [address] CBC 06-21-2019 Erythrocyte distribution width (RBC) [Ratio] 14.5 % Normal 11.5-14.5 [facility] ([place]) Comment on above: Performed By: #### ALEXANDRE AMADOR ANEU #### [place] [address] #### LIPID, CMP, GFR, VIDH #### [place] [address] Hematocrit (Bld) [Volume fraction] 39.3 % Low 42.0-52.0 [facility] ([place] Comment on above: Performed By: #### ALEXANDRE AMADOR, ANEU #### [place] [address] #### LIPID, CMP, GFR, VIDH #### [place] [address] Hemoglobin (Bld) [Mass/Vol] 13.1 G/dL Low 14.0-18.0 [facility] ([place] Comment on above: Performed By: #### C ALEXANRDE DUGGAN, ANEU #### [place] [address] #### LIPID, CMP, GFR, VIDH #### [place] [address] MCH (RBC) [Entitic mass] 31.2 pg Normal 27.0-31.2 [facility] ([place]) Comment on above: Performed By: #### C ALEXANDRE DUGGAN, ANEU #### [address] [address] #### LIPID, CMP, GFR, VIDH #### [address] [address] MCHC (RBC) [Mass/Vol] 33.4 G/dL Normal 31.8-35.4 [facility] ([place]) Comment on above: Performed By: #### C ALEXANDRE DUGGAN, ANEU #### [place] [address] #### LIPID, CMP, GFR, VIDH #### [address] [address] MCV (RBC) [Entitic vol] 93.4 fL Normal 80.0-94.0 A [facility] ([place]) Comment on above: Performed By: #### C ALEXANDRE DUGGAN, ANEU #### [place] [address] #### LIPID, CMP, GFR, VIDH #### [address] [address] Platelet mean volume (Bld) [Entitic vol] 8.9 fL Normal 7.4-10.4 [facility] ([place] Comment on above: Performed By: #### C ALEXANDRE DUGGAN, ANEU #### [place] [address] #### LIPID, CMP, GFR, VIDH #### [address] [address] Platelets (Bld) [#/Vol] 149 10 3/mcL Normal 130-400 [facility] ([place]) Comment on above: Performed By: #### C ALEXANDRE DUGGAN, ANEU #### [place] [address] #### LIPID, CMP, GFR, VIDH #### [address] [address] RBC (Bld) [#/Vol] 4.21 10 6/mcL Normal 4.04-6.13 [facility] ([place]) Comment on above: Performed By: #### C BC, ADIFF, ANEU #### [place] [address] #### LIPID, CMP, GFR, VIDH #### [address] [address] WBC (Bld) [#/Vol] 6.90 10 3/mcL Normal 4.60-10.80 [facility] ([place] Comment on above: Performed By: #### C BC, ADIFF, ANEU #### [place] [address] #### LIPID, CMP, GFR, VIDH #### [address] [address] CMPon 06-21-2019 Albumin [Mass/Vol] 3.9 G/dL Normal 3.4-4.8 [facility] ([place] Comment on above: Performed By: #### C URBAN, ADIFF, ANEU #### [place] [address] #### LIPID, CMP, GFR, VIDH #### [address] [address] Albumin/Globulin [Mass ratio] 1.2 {ratio} Normal 1.1-2.5 [facility] ([place] Comment on above: Performed By: #### C URBAN, ADIFF, ANEU #### [place] [address] #### LIPID, CMP, GFR, VIDH #### [address] [address] ALP [Catalytic activity/Vol] 73 U/L Normal 40-135 [facility] ([place] Comment on above: Performed By: #### C BC, ADIFF, ANEU #### [place] [address] #### LIPID, CMP, GFR, VIDH #### [address] [address] ALT [Catalytic activity/Vol] 25 U/L Normal 10-35 [facility] ([place] Comment on above: Performed By: #### C ALEXANDRE DUGGAN, ANEU #### [place] [address] #### LIPID, CMP, GFR, VIDH #### [address] [address] AST [Catalytic activity/Vol] 28 U/L Normal 10-40 [facility] ([place] Comment on above: Performed By: #### C ALEXANDRE DUGGAN, ANEU #### [place] [address] #### LIPID, CMP, GFR, VIDH #### [address] [address] Bili Total 0.7 mg/dL Normal 0.2-1.0 [facility] ([place] Comment on above: Result Comment: Use of this assay is not recommended for patients undergoing treatment with eltrombopag due to the potential for falsely elevated results. Performed By: #### C ALEXANDRE DUGGAN, ANEU #### [place] [address] #### LIPID, CMP, GFR, VIDH #### [address] [address] Calcium [Mass/Vol] 9.4 mg/dL Normal 8.4-10.2 [facility] ([place]) Comment on above: Performed By: #### C ALEXANDRE DUGGAN, ANEU #### [place] [address] #### LIPID, CMP, GFR, VIDH #### [address] [address] Chloride [Moles/Vol] 105 mmol/L Normal 98-107 [facility] ([place]) Comment on above: Performed By: #### C ALEXANDRE DUGGAN, ANEU #### [place] [address] #### LIPID, CMP, GFR, VIDH #### [address] [address] CO2 [Moles/Vol] 32 mmol/L High 23-31 [facility] ([place]) Comment on above: Performed By: #### C BC, ADIFF, ANEU #### [address] [address] #### LIPID, CMP, GFR, VIDH #### [address] [address] Creatinine [Mass/Vol] 1.29 mg/dL Normal 0.70-1.30 [facility] ([place]) Comment on above: Performed By: #### C BC, ADIFF, ANEU #### [address] [address] #### LIPID, CMP, GFR, VIDH #### [address] [address] Electrolyte Balance 5.0 mEq/L Normal [facility] ([place]) Comment on above: Performed By: #### C BC, ADIFF, ANEU #### [address] [address] #### LIPID, CMP, GFR, VIDH #### [address] [address] Globulin (S) [Mass/Vol] 3.2 G/dL Normal A [facility] ([place]) Comment on above: Performed By: #### C BC, ADIFF, ANEU #### [address] [address] #### LIPID, CMP, GFR, VIDH #### [address] [address] Glucose [Mass/Vol] 108 mg/dL Normal 83-110 [facility] ([place]) Comment on above: Performed By: #### C BC, ADIFF, ANEU #### [address] [address] #### LIPID, CMP, GFR, VIDH #### [address] [address] Potassium [Moles/Vol] 3.9 mmol/L Normal 3.5-5.1 [facility] ([place]) Comment on above: Performed By: #### C BC, ADIFF, ANEU #### [address] [address] #### LIPID, CMP, GFR, VIDH #### [address] [address] Protein [Mass/Vol] 7.1 G/dL Normal 6.4-8.2 [facility] ([place]) Comment on above: Performed By: #### C BC, ADIFF, ANEU #### [address] [address] #### LIPID, CMP, GFR, VIDH #### [address] [address] Sodium [Moles/Vol] 142 mmol/L Normal 136-145 [facility] ([place]) Comment on above: Performed By: #### C BC, ADIFF, ANEU #### [address] [address] #### LIPID, CMP, GFR, VIDH #### [address] [address] Urea nitrogen [Mass/Vol] 18 mg/dL Normal 7-18 [facility] ([place] Comment on above: Performed By: #### C BC, MIGUELIFF, ANEU #### [address] [address] #### LIPID, CMP, GFR, VIDH #### [address] [address] Urea nitrogen/Creatinine [Mass ratio] 14 ratio Normal 7-27 [facility] ([place] Comment on above: Performed By: #### C BC, ADIFF, ANEU #### [address] [address] #### LIPID, CMP, GFR, VIDH #### [address] [address] LIPIDon 06-21-2019 Cholesterol [Mass/Vol] 89 mg/dL Normal 0-200 [facility] ([place]) Comment on above: Result Comment: Chol esterol Reference Interval: Less than 200 Desirable 200-239 Borderline high risk 240 and above High risk Performed By: #### C BC, ADIFF, ANEU #### [address] [address] #### LIPID, CMP, GFR, VIDH #### [address] [address] Cholesterol in HDL [Mass/Vol] 24 mg/dL Low 40-60 [facility] ([place] Comment on above: Performed By: #### C BC, ADIFF, ANEU #### [place] [address] #### LIPID, CMP, GFR, VIDH #### [address] [address] Cholesterol in LDL [Mass/Vol] 47 mg/dL Normal 0-130 [facility] ([place]) Comment on above: Performed By: #### C ALEXANDRE DUGGAN, ANEU #### [place] [address] #### LIPID, CMP, GFR, VIDH #### [address] [address] Triglyceride [Mass/Vol] 92 mg/dL Normal 0-150 A [facility] ([place]) Comment on above: Result Comment: Trig lyceride Reference Interval: Less than 150 Normal 150-199 Borderline high risk 200-499 High risk 500 or higher Very high risk Performed By: #### C BCALEXANDRE, ANEU #### [place] [id number] #### LIPID, CMP, GFR, VIDH #### [address] [address] VIDHon 06-21-2019 Vit. D 25-Hydroxy 23 ng/mL Normal [facility] ([place]) Comment on above: Result Comment: Inte rpretive Values Based on Total 25(OH)D: Severe Deficiency <20 ng/mL Mild to Moderate Deficiency 20-30 ng/mL Optimum Levels 30-100 ng/mL Toxicity Possible >100 ng/mL Performed By: #### C BC, ADIFF, ANEU #### [place] [address] #### LIPID, CMP, GFR, VIDH #### [address] [address] .Auto Diffon 05-15-2019 Ammonia (P) [Mass/Vol] 0.60 10 3/mcL Normal 0.15-1.00 [facility] ([place]) Comment on above: Performed By: #### C ALEXANDRE DUGGAN, ANEU #### [address] [address] #### LIPID, CMP, GFR, VIDH #### [address] [address] Basophils (Bld) [#/Vol] 0.00 10 3/mcL Normal 0.00-0.19 [facility] ([place]) Comment on above: Performed By: #### C ALEXANDRE DUGGAN, ANEU #### [place] [address] #### LIPID, CMP, GFR, VIDH #### [address] [address] Basophils/100 WBC (Bld) 0.3 % Normal 0.0-2.5 A [facility] ([place]) Comment on above: Performed By: #### C ALEXANDRE DUGGAN, ANEU #### [place] [address] #### LIPID, CMP, GFR, VIDH #### [place] [address] Eosinophils (Bld) [#/Vol] 0.10 10 3/mcL Normal 0.00-0. 40 [facility] ([place]) Comment on above: Performed By: #### ALEXANDRE AMADOR, ANEU #### [place] [address] #### LIPID, CMP, GFR, VIDH #### [address] [address] Eosinophils/100 WBC (Bld) 1.6 % Normal 0.0-7.0 [facility] ([place]) Comment on above: Performed By: #### C ALEXANDRE DUGGAN, ANEU #### [place] [address] #### LIPID, CMP, GFR, VIDH #### [address] [address] Lymphocytes (Bld) [#/Vol] 1.40 10 3/mcL Normal 0.77-3. 85 [facility] ([place]) Comment on above: Performed By: #### C BC, ADIFF, ANEU #### [address] [address] #### LIPID, CMP, GFR, VIDH #### [address] [address] Lymphocytes/100 WBC (Bld) 25.2 % Normal 10.0-50.0 [facility] ([place]) Comment on above: Performed By: #### C BC, ADIFF, ANEU #### [address] [address] #### LIPID, CMP, GFR, VIDH #### [address] [address] Monocytes/100 WBC (Bld) 11.8 % Normal 1.7-13.0 A [facility] ([place]) Comment on above: Performed By: #### C BC, ADIFF, ANEU #### [place] [address] #### LIPID, CMP, GFR, VIDH #### [address] [address] Neutrophils/100 WBC (Bld) 61.1 % Normal 37.0-80.0 [facility] ([place]) Comment on above: Performed By: #### C BC, ADIFF, ANEU #### [place] [address] #### LIPID, CMP, GFR, VIDH #### [address] [address] .GFRon 05-15-2019 GFR Non- 52 ml/min/1.73sqm Normal [facility] ([place]) Comment on above: Result Comment: GFR Population [...] mL/min/1.73 square meters Performed By: #### C BCALEXANDRE, ANEU #### [address] [address] #### LIPID, CMP, GFR, VIDH #### [address] [address] GFR 62 ml/min/1.73sqm Normal [facility] ([place]) Comment on above: Result Comment: GFR Population [...] By: #### C ALEXANDRE DUGGAN, ANEU #### [address] [address] #### LIPID, CMP, GFR, VIDH #### [address] [address] .NEUABSon 05-15-2019 Neutrophils (Bld) [#/Vol] 3.30 10 3/mcL Normal 2.85-6. 16 [facility] ([place]) Comment on above: Performed By: #### C ALEXANDRE DUGGAN, ANEU #### [address] [address] #### LIPID, CMP, GFR, VIDH #### [address] [address] CBCon 05-15-2019 Erythrocyte distribution width (RBC) [Ratio] 14.8 % High 11.5-14.5 [facility] ([place]) Comment on above: Performed By: #### C BC, ADIFF, ANEU #### [place] [address] #### LIPID, CMP, GFR, VIDH #### [place] [address] Hematocrit (Bld) [Volume fraction] 39.1 % Low 42.0-52.0 [facility] ([place]) Comment on above: Performed By: #### C URBAN, ADIFF, ANEU #### [place] [address] #### LIPID, CMP, GFR, VIDH #### [place] [address] Hemoglobin (Bld) [Mass/Vol] 13.0 G/dL Low 14.0-18.0 [facility] ([place]) Comment on above: Performed By: #### C URBAN, ADIFF, ANEU #### [place] [address] #### LIPID, CMP, GFR, VIDH #### [place] [address] MCH (RBC) [Entitic mass] 31.4 pg High 27.0-31.2 [facility] ([place]) Comment on above: Performed By: #### C BC, ADIFF, ANEU #### [place] [address] #### LIPID, CMP, GFR, VIDH #### [place] [address] MCHC (RBC) [Mass/Vol] 33.3 G/dL Normal 31.8-35.4 [facility] ([place]) Comment on above: Performed By: #### C BC, ADIFF, ANEU #### [place] [address] #### LIPID, CMP, GFR, VIDH #### [address] [address] MCV (RBC) [Entitic vol] 94.2 fL High 80.0-94.0 A [facility] ([place]) Comment on above: Performed By: #### C BC, ADIFF, ANEU #### [address] [address] #### LIPID, CMP, GFR, VIDH #### [address] [address] Platelet mean volume (Bld) [Entitic vol] 9.4 fL Normal 7.4-10.4 [facility] ([place]) Comment on above: Performed By: #### C BC, ADIFF, ANEU #### [place] [address] #### LIPID, CMP, GFR, VIDH #### [address] [address] Platelets (Bld) [#/Vol] 131 10 3/mcL Normal 130-400 [facility] ([place]) Comment on above: Performed By: #### C BC, ADIFF, ANEU #### [place] [address] #### LIPID, CMP, GFR, VIDH #### [address] [address] RBC (Bld) [#/Vol] 4.15 10 6/mcL Normal 4.04-6.13 [facility] ([place]) Comment on above: Performed By: #### C BC, ADIFF, ANEU #### [place] [address] #### LIPID, CMP, GFR, VIDH #### [address] [address] WBC (Bld) [#/Vol] 5.40 10 3/mcL Normal 4.60-10.80 [facility] ([place]) Comment on above: Performed By: #### C BC, ADIFF, ANEU #### [place] [address] #### LIPID, CMP, GFR, VIDH #### [address] [address] CMPon 05-15-2019 Albumin [Mass/Vol] 3.7 G/dL Normal 3.4-4.8 [facility] ([place]) Comment on above: Performed By: #### C BC, ADIFF, ANEU #### [address] [address] #### LIPID, CMP, GFR, VIDH #### [address] [address] Albumin/Globulin [Mass ratio] 1.1 {ratio} Normal 1.1-2.5 [facility] ([place]) Comment on above: Performed By: #### C BC, ADIFF, ANEU #### [place] [address] #### LIPID, CMP, GFR, VIDH #### [address] [address] ALP [Catalytic activity/Vol] 56 U/L Normal 40-135 [facility] ([place]) Comment on above: Performed By: #### C BC, ADIFF, ANEU #### [place] [address] #### LIPID, CMP, GFR, VIDH #### [address] [address] ALT [Catalytic activity/Vol] 22 U/L Normal 10-35 [facility] ([place] Comment on above: Performed By: #### C BC, ADIFF, ANEU #### [address] [address] #### LIPID, CMP, GFR, VIDH #### [address] [address] AST [Catalytic activity/Vol] 23 U/L Normal 10-40 [facility] ([place] Comment on above: Performed By: #### C BC, ADIFF, ANEU #### [place] [address] #### LIPID, CMP, GFR, VIDH #### [address] [address] Bili Total 0.8 mg/dL Normal 0.2-1.0 [facility] ([place] Comment on above: Performed By: #### C BC, ADIFF, ANEU #### [address] [address] #### LIPID, CMP, GFR, VIDH #### [address] [address] Calcium [Mass/Vol] 8.6 mg/dL Normal 8.4-10.2 [facility] ([place]) Comment on above: Performed By: #### C BC, ADIFF, ANEU #### [place] [address] #### LIPID, CMP, GFR, VIDH #### [address] [address] Chloride [Moles/Vol] 100 mmol/L Normal 98-107 [facility] ([place]) Comment on above: Performed By: #### C BC, ADIFF, ANEU #### [address] [address] #### LIPID, CMP, GFR, VIDH #### [address] [address] CO2 [Moles/Vol] 35 mmol/L High 23-31 [facility] ([place] Comment on above: Performed By: #### C BC, ADIFF, ANEU #### [address] [address] #### LIPID, CMP, GFR, VIDH #### [address] [address] Creatinine [Mass/Vol] 1.34 mg/dL High 0.70-1.30 [facility] ([place]) Comment on above: Performed By: #### C BC, ADIFF, ANEU #### [address] [address] #### LIPID, CMP, GFR, VIDH #### [address] [address] Electrolyte Balance 7.0 mEq/L Normal [facility] ([place] Comment on above: Performed By: #### C BC, ADIFF, ANEU #### [address] [address] #### LIPID, CMP, GFR, VIDH #### [address] [address] Globulin (S) [Mass/Vol] 3.3 G/dL Normal A [facility] ([place] Comment on above: Performed By: #### C BC, ADIFF, ANEU #### [address] [address] #### LIPID, CMP, GFR, VIDH #### [address] [address] Glucose [Mass/Vol] 104 mg/dL Normal 83-110 [facility] ([place] Comment on above: Performed By: #### C BC, ADIFF, ANEU #### [address] [address] #### LIPID, CMP, GFR, VIDH #### [address] [address] Potassium [Moles/Vol] 3.5 mmol/L Normal 3.5-5.1 [facility] ([place]) Comment on above: Performed By: #### C BC, ADIFF, ANEU #### [address] [address] #### LIPID, CMP, GFR, VIDH #### [address] [address] Protein [Mass/Vol] 7.0 G/dL Normal 6.4-8.2 [facility] ([place] Comment on above: Performed By: #### C BC, ADIFF, ANEU #### [address] [address] #### LIPID, CMP, GFR, VIDH #### [address] [address] Sodium [Moles/Vol] 142 mmol/L Normal 136-145 [facility] ([place] Comment on above: Performed By: #### C BCALEXANDRE, ANEU #### [address] [address] #### LIPID, CMP, GFR, VIDH #### [address] [address] Urea nitrogen [Mass/Vol] 33 mg/dL High 7-18 [facility] ([place] Comment on above: Performed By: #### C BCMIGUELIFF, ANEU #### [place] [address] #### LIPID, CMP, GFR, VIDH #### [address] [address] Urea nitrogen/Creatinine [Mass ratio] 25 ratio Normal 10-19 [facility] ([place] Comment on above: Performed By: #### C ALEXANDRE DUGGAN, ANEU #### [place] [address] #### LIPID, CMP, GFR, VIDH #### [address] [address] PBNPon 05-15-2019 Natriuretic peptide B (Bld) [Mass/Vol] 266 pg/mL Normal 0-450 [facility] ([place] Comment on above: Result Comment: NT-p roBNP results of less than 300 pg/mL effectively rules out acute congestive heart failure with 99% negative predictive value. Performed By: #### C MIGUEL DUGGANIFF, ANEU #### [place] [address] #### LIPID, CMP, GFR, VIDH #### [address] [address] TROPon 05-15-2019 Troponin I.cardiac [Mass/Vol] 0.034 ng/mL Normal 0.000-0.040 [facility] ([place]) Comment on above: Result Comment: Trop onin I reference range: 0.00-0.040 ng/mL Negative and non-diagnostic. >0.040 ng/mL Consistent with cardiac damage, increased clinical risk and possibility of myocardial infarction. Serial measurements, a rise & fall in test results, clinical history, appropriate symptoms and/or ECG changes may help assess possibility of SC. *Other non-acute coronary syndrome conditions such as CHF, myocarditis, pulmonary emboli, sepsis and cardiac surgery could result in myocardial damage and increased troponin levels. Performed By: #### C ALEXANDRE DUGGAN ANEU #### [place] [address] [place], [place] [address] #### LIPID, CMP, GFR, VIDH #### [address] [address] CWDon 05-11-2019 CWD . MICRO - Microbiology PROCEDURE: Culture Wound Aerobic with Gram Stain [*1] SOURCE: Exudate BODY SITE: Leg L COLLECTED DATE/TIME: 05/08/2019 10:15 EST RECEIVED DATE/TIME: 05/08/2019 20:20 EST START DATE/TIME: 05/08/2019 20:21 EST FREE TEXT SOURCE: FINAL REPORTS Final Report [] Verified Date/Time/Personnel : 05/11/2019 11:59 EST Light Enterococcus faecalis Light Pseudomonas aeruginosa Light normal skin murray present. Sensitivity testing not indicated. PRELIMINARY REPORTS Preliminary Report [] Verified Date/Time/Personnel : 05/10/2019 10:54 EST Light Presumptive Group D Enterococcus Final identification and DORA to follow. Light Non Fermentering Gram Negative Rods Final identification and DORA to follow. Preliminary Report [] Verified Date/Time/Personnel : 05/09/2019 09:17 EST Culture results pending. STAINS GS [] Verified Date/Time/Personnel : 05/08/2019 23:03 EST 1+ Red Blood Cells [...] Locations *1: This test was performed at: [facility], [address] [place] [address], [id number] , [facility] ([place]) Comment on above: Performed By: #### C ALEXANDRE DUGGAN ANEU #### [place] [address] #### LIPID, CMP, GFR, VIDH #### [address] [address] .Auto Diffon 02-18-2019 Ammonia (P) [Mass/Vol] 0.90 10 3/mcL Normal 0.15-1.00 [facility] ([place]) Comment on above: Performed By: #### C ALEXANDRE DUGGAN, ANEU #### [place] [address] #### LIPID, CMP, GFR, VIDH #### [address] [address] Basophils (Bld) [#/Vol] 0.00 10 3/mcL Normal 0.00-0.19 [facility] ([place]) Comment on above: Performed By: #### ALEXANDRE AMADOR, ANEU #### [place] [address] #### LIPID, CMP, GFR, VIDH #### [address] [address] Basophils/100 WBC (Bld) 0.5 % Normal 0.0-2.5 A [facility] ([place]) Comment on above: Performed By: #### ALEXANDRE AMADOR, ANEU #### [place] [address] #### LIPID, CMP, GFR, VIDH #### [address] [address] Eosinophils (Bld) [#/Vol] 0.20 10 3/mcL Normal 0.00-0. 40 [facility] ([place]) Comment on above: Performed By: #### C ALEXANDRE DUGGAN, ANEU #### [place] [address] #### LIPID, CMP, GFR, VIDH #### [address] [address] Eosinophils/100 WBC (Bld) 2.1 % Normal 0.0-7.0 [facility] ([place]) Comment on above: Performed By: #### C BC, ADIFF, ANEU #### [address] [address] #### LIPID, CMP, GFR, VIDH #### [address] [address] Lymphocytes (Bld) [#/Vol] 2.60 10 3/mcL Normal 0.77-3. 85 [facility] ([place]) Comment on above: Performed By: #### C BC, ADIFF, ANEU #### [address] [address] #### LIPID, CMP, GFR, VIDH #### [address] [address] Lymphocytes/100 WBC (Bld) 34.8 % Normal 10.0-50.0 [facility] ([place]) Comment on above: Performed By: #### C BC, ADIFF, ANEU #### [place] [address] #### LIPID, CMP, GFR, VIDH #### [address] [address] Monocytes/100 WBC (Bld) 11.3 % Normal 1.7-13.0 A [facility] ([place] Comment on above: Performed By: #### C BC, ADIFF, ANEU #### [place] [address] #### LIPID, CMP, GFR, VIDH #### [address] [address] Neutrophils/100 WBC (Bld) 51.3 % Normal 37.0-80.0 [facility] ([place]) Comment on above: Performed By: #### C BC, ADIFF, ANEU #### [place] [address] #### LIPID, CMP, GFR, VIDH #### [address] [address] .GFRon 02-18-2019 GFR 68 ml/min/1.73sqm Normal [facility] ([place]) Comment on above: Result Comment: GFR Population [...] By: #### C BC, ALEXANDRE, ANEU #### [address] [address] #### LIPID, CMP, GFR, VIDH #### [address] [address] GFR Non- 56 ml/min/1.73sqm Normal [facility] ([place] Comment on above: Result Comment: GFR Population [...] By: #### C BC, ADIFF, ANEU #### [address] [address] #### LIPID, CMP, GFR, VIDH #### [address] [address] .NEUABSon 02-18-2019 Neutrophils (Bld) [#/Vol] 3.90 10 3/mcL Normal 2.85-6. 16 [facility] ([place]) Comment on above: Performed By: #### C ALEXANDRE DUGGAN, ANEU #### [place] [address] #### LIPID, CMP, GFR, VIDH #### [address] [address] A1Con 02-18-2019 HbA1c (Bld) [Mass fraction] 6.0 % Normal 4.5-6.2 [facility] ([place] Comment on above: Performed By: #### C ALEXANDRE DUGGAN, ANEU #### [place] [address] #### LIPID, CMP, GFR, VIDH #### [place] [address] CBCon 02-18-2019 Erythrocyte distribution width (RBC) [Ratio] 14.3 % Normal 11.5-14.5 [facility] ([place] Comment on above: Performed By: #### C ALEXANDRE DUGGAN, ANEU #### [place] [address] #### LIPID, CMP, GFR, A1C, VIDH #### [place] [address] Hematocrit (Bld) [Volume fraction] 40.5 % Low 42.0-52.0 [facility] ([place] Comment on above: Performed By: #### C ALEXANDRE DUGGAN, ANEU #### [place] [address] #### LIPID, CMP, GFR, A1C, VIDH #### [place] [address] Hemoglobin (Bld) [Mass/Vol] 13.4 G/dL Low 14.0-18.0 [facility] ([place] Comment on above: Performed By: #### C ALEXANDRE DUGGAN, ANEU #### [place] [address] #### LIPID, CMP, GFR, A1C, VIDH #### [place] [address] MCH (RBC) [Entitic mass] 31.5 pg High 27.0-31.2 [facility] ([place] Comment on above: Performed By: #### C BC, ADIFF, ANEU #### [address] [address] #### LIPID, CMP, GFR, A1C, VIDH #### [address] [address] MCHC (RBC) [Mass/Vol] 33.2 G/dL Normal 31.8-35.4 [facility] ([place]) Comment on above: Performed By: #### C BC, ADIFF, ANEU #### [place] [address] #### LIPID, CMP, GFR, A1C, VIDH #### [address] [address] MCV (RBC) [Entitic vol] 94.9 fL High 80.0-94.0 A [facility] ([place] Comment on above: Performed By: #### C BC, ADIFF, ANEU #### [place] [address] #### LIPID, CMP, GFR, A1C, VIDH #### [address] [address] Platelet mean volume (Bld) [Entitic vol] 8.4 fL Normal 7.4-10.4 [facility] ([place] Comment on above: Performed By: #### C ALEXANDRE DUGGAN, ANEU #### [place] [address] #### LIPID, CMP, GFR, A1C, VIDH #### [address] [address] Platelets (Bld) [#/Vol] 126 10 3/mcL Low 130-400 [facility] ([place] Comment on above: Performed By: #### C BC, ADIFF, ANEU #### [place] [address] #### LIPID, CMP, GFR, A1C, VIDH #### [address] [address] RBC (Bld) [#/Vol] 4.26 10 6/mcL Normal 4.04-6.13 [facility] ([place] Comment on above: Performed By: #### C BC ADIFF, ANEU #### [address] [address] #### LIPID, CMP, GFR, A1C, VIDH #### [place] [address] WBC (Bld) [#/Vol] 7.60 10 3/mcL Normal 4.60-10.80 [facility] ([place]) Comment on above: Performed By: #### C ALEXANDRE DUGGAN, ANEU #### [place] [address] #### LIPID, CMP, GFR, A1C, VIDH #### [place] [address] CMPon 02-18-2019 Albumin [Mass/Vol] 4.1 G/dL Normal 3.4-4.8 [facility] ([place] Comment on above: Performed By: #### C URBAN ADIFF, ANEU #### [place] [address] #### LIPID, CMP, GFR, VIDH #### [place] [address] Albumin/Globulin [Mass ratio] 1.2 {ratio} Normal 1.1-2.5 [facility] ([place] Comment on above: Performed By: #### Liv DUGGAN ADIFF, ANEU #### [place] [address] #### LIPID, CMP, GFR, VIDH #### [place] [address] ALP [Catalytic activity/Vol] 72 U/L Normal 40-135 [facility] ([place] Comment on above: Performed By: #### C BC, ADIFF, ANEU #### [place] [address] #### LIPID, CMP, GFR, VIDH #### [address] [address] ALT [Catalytic activity/Vol] 26 U/L Normal 10-35 [facility] ([place] Comment on above: Performed By: #### C BC, ADIFF, ANEU #### [address] [address] #### LIPID, CMP, GFR, VIDH #### [address] [address] AST [Catalytic activity/Vol] 25 U/L Normal 10-40 [facility] ([place] Comment on above: Performed By: #### C BC, ADIFF, ANEU #### [place] [address] #### LIPID, CMP, GFR, VIDH #### [address] [address] Bili Total 0.8 mg/dL Normal 0.2-1.0 [facility] ([place] Comment on above: Performed By: #### C BC, ADIFF, ANEU #### [place] [address] #### LIPID, CMP, GFR, VIDH #### [address] [address] Calcium [Mass/Vol] 9.6 mg/dL Normal 8.4-10.2 [facility] ([place] Comment on above: Performed By: #### C BC, ADIFF, ANEU #### [place] [address] #### LIPID, CMP, GFR, VIDH #### [address] [address] Chloride [Moles/Vol] 105 mmol/L Normal 98-107 [facility] ([place] Comment on above: Performed By: #### C BC, ADIFF, ANEU #### [place] [address] #### LIPID, CMP, GFR, VIDH #### [address] [address] CO2 [Moles/Vol] 31 mmol/L Normal 23-31 [facility] ([place]) Comment on above: Performed By: #### C BC, ADIFF, ANEU #### [address] [address] #### LIPID, CMP, GFR, VIDH #### [address] [address] Creatinine [Mass/Vol] 1.25 mg/dL Normal 0.70-1.30 [facility] ([place]) Comment on above: Performed By: #### C BC, ADIFF, ANEU #### [address] [id number] #### LIPID, CMP, GFR, VIDH #### [address] [address] Electrolyte Balance 8.0 mEq/L Normal [facility] ([place]) Comment on above: Performed By: #### C BC, ADIFF, ANEU #### [address] [address] #### LIPID, CMP, GFR, VIDH #### [address] [address] Globulin (S) [Mass/Vol] 3.3 G/dL Normal A [facility] ([place]) Comment on above: Performed By: #### C BC, ADIFF, ANEU #### [address] [address] #### LIPID, CMP, GFR, VIDH #### [address] [address] Glucose [Mass/Vol] 111 mg/dL High 83-110 [facility] ([place]) Comment on above: Performed By: #### C BC, ADIFF, ANEU #### [address] [address] #### LIPID, CMP, GFR, VIDH #### [address] [address] Potassium [Moles/Vol] 3.9 mmol/L Normal 3.5-5.1 [facility] ([place]) Comment on above: Performed By: #### C BC, ADIFF, ANEU #### [address] [address] #### LIPID, CMP, GFR, VIDH #### [address] [address] Protein [Mass/Vol] 7.4 G/dL Normal 6.4-8.2 [facility] ([place]) Comment on above: Performed By: #### C BCMIGUELIFF, ANEU #### [address] [address] #### LIPID, CMP, GFR, VIDH #### [address] [address] Sodium [Moles/Vol] 144 mmol/L Normal 136-145 [facility] ([place]) Comment on above: Performed By: #### C BCALEXANDRE, ANEU #### [address] [address] #### LIPID, CMP, GFR, VIDH #### [address] [address] Urea nitrogen [Mass/Vol] 19 mg/dL High 7-18 [facility] ([place]) Comment on above: Performed By: #### C BCMIGUELIFF, ANEU #### [address] [address] #### LIPID, CMP, GFR, VIDH #### [address] [address] Urea nitrogen/Creatinine [Mass ratio] 15 ratio Normal 7-27 [facility] ([place]) Comment on above: Performed By: #### C BC, ADIFF, ANEU #### [address] [address] #### LIPID, CMP, GFR, VIDH #### [address] [address] LIPIDon 02-18-2019 Cholesterol [Mass/Vol] 90 mg/dL Normal 0-200 [facility] ([place]) Comment on above: Result Comment: Chol esterol Reference Interval: Less than 200 Desirable 200-239 Borderline high risk 240 and above High risk Performed By: #### C BC, ADIFF, ANEU #### [address] [address] #### LIPID, CMP, GFR, VIDH #### [address] [address] Cholesterol in HDL [Mass/Vol] 28 mg/dL Low 40-60 [facility] ([place] Comment on above: Performed By: #### C BC, ADIFF, ANEU #### [address] [address] #### LIPID, CMP, GFR, VIDH #### [address] [address] Cholesterol in LDL [Mass/Vol] 44 mg/dL Normal 0-130 [facility] ([place]) Comment on above: Performed By: #### C BC, ADIFF, ANEU #### [address] [address] #### LIPID, CMP, GFR, VIDH #### [address] [address] Triglyceride [Mass/Vol] 90 mg/dL Normal 0-150 A [facility] ([place]) Comment on above: Result Comment: Trig lyceride Reference Interval: Less than 150 Normal 150-199 Borderline high risk 200-499 High risk 500 or higher Very high risk Performed By: #### C BC, ADIFF, ANEU #### [address] [address] #### LIPID, CMP, GFR, VIDH #### [address] [address] VIDHon 02-18-2019 Vit. D 25-Hydroxy 32 ng/mL Normal [facility] ([place]) Comment on above: Result Comment: Inte rpretive Values Based on Total 25(OH)D: Severe Deficiency <20 ng/mL Mild to Moderate Deficiency 20-30 ng/mL Optimum Levels 30-100 ng/mL Toxicity Possible >100 ng/mL Performed By: #### C BC, ADIFF, ANEU #### [address] [address] #### LIPID, CMP, GFR, VIDH #### [place] [address] RENINDon 08-15-2018 Direct Renin 2.4 pg/mL Normal [facility] ([place]) Comment on above: Result Comment: Soco morales Reference Range, 41-99 years: Upright: 3.6-81.6 pg/mL Supine: 2.5-45.1 pg/mL Performed By: [facility] [employer] [address] [place] [address] Small Stock Facer: Taty Phillips#: [id number] Phone#: Performed By: #### P TH #### [place] [address] #### RENIND #### [place] [address] PTHon 08-14-2018 PTH, Intact 30.4 pg/mL Normal 18.5-88.0 [facility] ([place]) Comment on above: Performed By: #### P TH #### [place] [address] #### RENIND #### [place] [address] VIDHon 08-14-2018 Vit. D 25-Hydroxy 27 ng/mL Normal [facility] ([place]) Comment on above: Result Comment: Inte rpretive Values Based on Total 25(OH)D: Severe Deficiency <20 ng/mL Mild to Moderate Deficiency 20-30 ng/mL Optimum Levels 30-100 ng/mL Toxicity Possible >100 ng/mL Performed By: #### C BC, ADIFF, ANEU #### [place] [address] #### LIPID, CMP, GFR, VIDH #### [place] [address] .Auto Diffon 08-13-2018 Ammonia (P) [Mass/Vol] 0.60 10 3/mcL Normal 0.15-1.00 [facility] ([place]) Comment on above: Performed By: #### C BC, ADIFF, ANEU #### [place] [address] #### LIPID, CMP, GFR, VIDH #### [address] [address] Basophils (Bld) [#/Vol] 0.00 10 3/mcL Normal 0.00-0.19 [facility] ([place]) Comment on above: Performed By: #### C BC, ADIFF, ANEU #### [place] [address] #### LIPID, CMP, GFR, VIDH #### [address] [address] Basophils/100 WBC (Bld) 0.4 % Normal 0.0-2.5 A [facility] ([place]) Comment on above: Performed By: #### C BC, ADIFF, ANEU #### [place] [address] #### LIPID, CMP, GFR, VIDH #### [address] [address] Eosinophils (Bld) [#/Vol] 0.10 10 3/mcL Normal 0.00-0. 40 [facility] ([place]) Comment on above: Performed By: #### C BC, ADIFF, ANEU #### [place] [address] #### LIPID, CMP, GFR, VIDH #### [address] [address] Eosinophils/100 WBC (Bld) 1.2 % Normal 0.0-7.0 [facility] ([place]) Comment on above: Performed By: #### C BC, ADIFF, ANEU #### [place] [address] #### LIPID, CMP, GFR, VIDH #### [address] [address] Lymphocytes (Bld) [#/Vol] 1.80 10 3/mcL Normal 0.77-3. 85 [facility] ([place]) Comment on above: Performed By: #### C BC, ADIFF, ANEU #### [address] [address] #### LIPID, CMP, GFR, VIDH #### [address] [address] Lymphocytes/100 WBC (Bld) 29.6 % Normal 10.0-50.0 [facility] ([place]) Comment on above: Performed By: #### C BC, ADIFF, ANEU #### [address] [address] #### LIPID, CMP, GFR, VIDH #### [address] [address] Monocytes/100 WBC (Bld) 9.4 % Normal 1.7-13.0 A [facility] ([place]) Comment on above: Performed By: #### C BC, ADIFF, ANEU #### [address] [address] #### LIPID, CMP, GFR, VIDH #### [address] [address] Neutrophils/100 WBC (Bld) 59.4 % Normal 37.0-80.0 [facility] ([place]) Comment on above: Performed By: #### C BC, ADIFF, ANEU #### [address] [address] #### LIPID, CMP, GFR, VIDH #### [address] [address] .GFRon 08-13-2018 GFR Non- 67 ml/min/1.73sqm Normal [facility] ([place]) Comment on above: Result Comment: GFR Population [...] By: #### C BC, ADIFF, ANEU #### [place] [id number] #### LIPID, CMP, GFR, VIDH #### [address] [address] GFR 81 ml/min/1.73sqm Normal [facility] ([place]) Comment on above: Result Comment: GFR Population [...] By: #### C BC, ADIFF, ANEU #### [place] [address]67 #### LIPID, CMP, GFR, VIDH #### [address] [address] .NEUABSon 08-13-2018 Neutrophils (Bld) [#/Vol] 3.60 10 3/mcL Normal 2.85-6. 16 [facility] ([place] Comment on above: Performed By: #### C BC, ADIFF, ANEU #### [address] [address] #### LIPID, CMP, GFR, VIDH #### [address] [address] CBCon 08-13-2018 Erythrocyte distribution width (RBC) [Ratio] 14.4 % Normal 11.5-14.5 [facility] ([place]) Comment on above: Order Comment: FASTI NG Performed By: #### C BC, ADIFF, ANEU #### [place] [address] #### LIPID, CMP, GFR, VIDH #### [address] [address] Hematocrit (Bld) [Volume fraction] 38.5 % Low 42.0-52.0 [facility] ([place] Comment on above: Order Comment: FASTI NG Performed By: #### C BC, ADIFF, ANEU #### [place] [address] #### LIPID, CMP, GFR, VIDH #### [place] [address] Hemoglobin (Bld) [Mass/Vol] 13.0 G/dL Low 14.0-18.0 [facility] ([place] Comment on above: Order Comment: FASTI NG Performed By: #### C BC, ADIFF, ANEU #### [place] [address] #### LIPID, CMP, GFR, VIDH #### [place] [address] MCH (RBC) [Entitic mass] 31.6 pg High 27.0-31.2 [facility] ([place] Comment on above: Order Comment: FASTI NG Performed By: #### C BC, ADIFF, ANEU #### [place] [address] #### LIPID, CMP, GFR, VIDH #### [place] [address] MCHC (RBC) [Mass/Vol] 33.8 G/dL Normal 31.8-35.4 [facility] ([place]) Comment on above: Order Comment: FASTI NG Performed By: #### C BC, ADIFF, ANEU #### [place] [address] #### LIPID, CMP, GFR, VIDH #### [place] [id number] MCV (RBC) [Entitic vol] 93.3 fL Normal 80.0-94.0 A [facility] ([place]) Comment on above: Order Comment: FASTI NG Performed By: #### C BC, ADIFF, ANEU #### [address] [address] #### LIPID, CMP, GFR, VIDH #### [address] [address] Platelet mean volume (Bld) [Entitic vol] 8.5 fL Normal 7.4-10.4 [facility] ([place]) Comment on above: Order Comment: FASTI NG Performed By: #### C BC, ADIFF, ANEU #### [address] [address] #### LIPID, CMP, GFR, VIDH #### [address] [address] Platelets (Bld) [#/Vol] 128 10 3/mcL Low 130-400 [facility] ([place]) Comment on above: Order Comment: FASTI NG Performed By: #### C BC, ADIFF, ANEU #### [address] [address] #### LIPID, CMP, GFR, VIDH #### [address] [address] RBC (Bld) [#/Vol] 4.12 10 6/mcL Normal 4.04-6.13 [facility] ([place]) Comment on above: Order Comment: FASTI NG Performed By: #### C BC, ADIFF, ANEU #### [address] [address] #### LIPID, CMP, GFR, VIDH #### [address] [address] WBC (Bld) [#/Vol] 6.10 10 3/mcL Normal 4.60-10.80 [facility] ([place]) Comment on above: Order Comment: FASTI NG Performed By: #### C BC, ADIFF, ANEU #### [address] [address] #### LIPID, CMP, GFR, VIDH #### [address] [address] CMPon 08-13-2018 Albumin [Mass/Vol] 4.0 G/dL Normal 3.4-4.8 [facility] ([place]) Comment on above: Performed By: #### C BC, ADIFF, ANEU #### [address] [address] #### LIPID, CMP, GFR, VIDH #### [place] [address] Albumin/Globulin [Mass ratio] 1.2 {ratio} Normal 1.1-2.5 [facility] ([place]) Comment on above: Performed By: #### C BC, ADIFF, ANEU #### [place] [address] #### LIPID, CMP, GFR, VIDH #### [place] [address] ALP [Catalytic activity/Vol] 73 U/L Normal 40-135 [facility] ([place] Comment on above: Performed By: #### C BC, ADIFF, ANEU #### [place] [address] #### LIPID, CMP, GFR, VIDH #### [address] [address] ALT [Catalytic activity/Vol] 24 U/L Normal 10-35 [facility] ([place] Comment on above: Performed By: #### C BC, ADIFF, ANEU #### [place] [address] #### LIPID, CMP, GFR, VIDH #### [address] [address] AST [Catalytic activity/Vol] 23 U/L Normal 10-40 [facility] ([place] Comment on above: Performed By: #### C BC, ADIFF, ANEU #### [place] [address] #### LIPID, CMP, GFR, VIDH #### [place] [id number] Bili Total 0.7 mg/dL Normal 0.2-1.0 [facility] ([place] Comment on above: Performed By: #### C BC, ADIFF, ANEU #### [address] [address] #### LIPID, CMP, GFR, VIDH #### [address] [address] Calcium [Mass/Vol] 9.3 mg/dL Normal 8.4-10.2 [facility] ([place]) Comment on above: Performed By: #### C BC, ADIFF, ANEU #### [place] [address] #### LIPID, CMP, GFR, VIDH #### [place] [address] Chloride [Moles/Vol] 106 mmol/L Normal 98-107 [facility] ([place]) Comment on above: Performed By: #### C BC, ADIFF, ANEU #### [place] [address] #### LIPID, CMP, GFR, VIDH #### [place] [address] CO2 [Moles/Vol] 30 mmol/L Normal 23-31 [facility] ([place] Comment on above: Performed By: #### C BC, ADIFF, ANEU #### [place] [address] #### LIPID, CMP, GFR, VIDH #### [place] [address] Creatinine [Mass/Vol] 1.07 mg/dL Normal 0.70-1.30 [facility] ([place]) Comment on above: Performed By: #### C BC, ADIFF, ANEU #### [place] [address] #### LIPID, CMP, GFR, VIDH #### [address] [address] Electrolyte Balance 8.0 mEq/L Normal [facility] ([place] Comment on above: Performed By: #### C BC, ADIFF, ANEU #### [address] [address] #### LIPID, CMP, GFR, VIDH #### [address] [address] Globulin (S) [Mass/Vol] 3.4 G/dL Normal A [facility] ([place]) Comment on above: Performed By: #### C BC, ADIFF, ANEU #### [address] [address] #### LIPID, CMP, GFR, VIDH #### [address] [address] Glucose [Mass/Vol] 95 mg/dL Normal 83-110 [facility] ([place]) Comment on above: Performed By: #### C BC, ADIFF, ANEU #### [address] [address] #### LIPID, CMP, GFR, VIDH #### [address] [address] Potassium [Moles/Vol] 4.1 mmol/L Normal 3.5-5.1 [facility] ([place]) Comment on above: Performed By: #### C BC, ADIFF, ANEU #### [address] [address] #### LIPID, CMP, GFR, VIDH #### [address] [address] Protein [Mass/Vol] 7.4 G/dL Normal 6.4-8.2 [facility] ([place]) Comment on above: Performed By: #### C BC, ADIFF, ANEU #### [address] [address] #### LIPID, CMP, GFR, VIDH #### [address] [address] Sodium [Moles/Vol] 144 mmol/L Normal 136-145 [facility] ([place]) Comment on above: Performed By: #### C BC, ADIFF, ANEU #### [address] [address] #### LIPID, CMP, GFR, VIDH #### [address] [address] Urea nitrogen [Mass/Vol] 16 mg/dL Normal 7-18 [facility] ([place] Comment on above: Performed By: #### C BC, ADIFF, ANEU #### [address] [address] #### LIPID, CMP, GFR, VIDH #### [address] [address] Urea nitrogen/Creatinine [Mass ratio] 15 ratio Normal 7-27 [facility] ([place] Comment on above: Performed By: #### C BC, ADIFF, ANEU #### [address] [address] #### LIPID, CMP, GFR, VIDH #### [address] [address] LIPIDon 08-13-2018 Cholesterol [Mass/Vol] 96 mg/dL Normal 0-200 [facility] ([place]) Comment on above: Result Comment: Chol esterol Reference Interval: Less than 200 Desirable 200-239 Borderline high risk 240 and above High risk Performed By: #### C BC, ADIFF, ANEU #### [address] [address] #### LIPID, CMP, GFR, VIDH #### [address] [address] Cholesterol in HDL [Mass/Vol] 27 mg/dL Low 40-60 [facility] ([place] Comment on above: Performed By: #### C BC, ADIFF, ANEU #### [address] [address] #### LIPID, CMP, GFR, VIDH #### [address] [address] Cholesterol in LDL [Mass/Vol] 46 mg/dL Normal 0-130 [facility] ([place] Comment on above: Performed By: #### C BC, ADIFF, ANEU #### [address] [address] #### LIPID, CMP, GFR, VIDH #### [address] [address] Triglyceride [Mass/Vol] 116 mg/dL Normal 0-150 A [facility] ([place] Comment on above: Result Comment: Trig lyceride Reference Interval: Less than 150 Normal 150-199 Borderline high risk 200-499 High risk 500 or higher Very high risk Performed By: #### C BC, ADIFF, ANEU #### [address] [address] #### LIPID, CMP, GFR, VIDH #### [address] [address] Vital Signs Date Time Vital Sign Value Performing Clinician John martinez 08-24-2024 12:00-0400 Body temperature 98.2 [degF] Shanon Caal LITHOGRAPH OPERATOR-C Work Phone: [facility] 08-24-2024 12:00-0400 Diastolic blood pressure 78 mm[Hg] Shanon Caal LITHOGRAPH OPERATOR-C Work Phone: [facility] 08-24-2024 12:00-0400 Heart rate 62 /min Shanon Caal LITHOGRAPH OPERATOR-C Work Phone: [facility] 08-24-2024 12:00-0400 Respiratory rate 17 /min Shanon Caal LITHOGRAPH OPERATOR-C Work Phone: [facility] 08-24-2024 12:00-0400 SaO2% (BldA) [Mass fraction] 97 % Shanon Caal LITHOGRAPH OPERATOR-C Work Phone: [facility] 08-24-2024 12:00-0400 Systolic blood pressure 110 mm[Hg] Shanon Caal LITHOGRAPH OPERATOR-C Work Phone: [facility] 08-24-2024 03:53-0400 Body height 172.72 cm Shanon Caal LITHOGRAPH OPERATOR-C Work Phone: [facility] 08-24-2024 03:53-0400 Body mass index (BMI) [Ratio] 36.2 kg/m2 Shanon Oliveirapkins LITHOGRAPH OPERATOR-C Work Phone: [facility] 08-24-2024 03:53-0400 Body weight 108.2 kg Shanon Oliveirapkins LITHOGRAPH OPERATOR-C Work Phone: [facility] 08-07-2024 14:29-0400 Body height 167.64 cm Shanon Oliveirapkins LITHOGRAPH OPERATOR-C Work Phone: [facility] 08-07-2024 14:29-0400 Body mass index (BMI) [Ratio] 40 kg/m2 Shanon Oliveirapkins LITHOGRAPH OPERATOR-C Work Phone: [facility] 08-07-2024 14:29-0400 Body weight 112.49 kg Shanon Oliveirapkins LITHOGRAPH OPERATOR-C Work Phone: [facility] 08-07-2024 14:29-0400 Diastolic blood pressure 67 mm[Hg] Shanon Caal LITHOGRAPH OPERATOR-C Work Phone: [facility] 08-07-2024 14:29-0400 Heart rate 75 /min Shanon Oliveirapkins LITHOGRAPH OPERATOR-C Work Phone: [facility] 08-07-2024 14:29-0400 Respiratory rate 16 /min Shanon Oliveirapkins LITHOGRAPH OPERATOR-C Work Phone: [facility] 08-07-2024 14:29-0400 Systolic blood pressure 128 mm[Hg] Shanon Caal LITHOGRAPH OPERATOR-C Work Phone: [facility] 07-11-2023 13:41-0400 Body mass index (BMI) [Ratio] 39 kg/m2 LITHOGRAPH OPERATOR-C Shanon Ten 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: [facility] 07-11-2023 13:41-0400 Body temperature 98.3 [degF] LITHOGRAPH OPERATOR-C Shanon Ten 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: [facility] 07-11-2023 13:41-0400 Diastolic blood pressure 76 mm[Hg] LITHOGRAPH OPERATOR-C Shanon Caal 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: [facility] 07-11-2023 13:41-0400 Heart rate 69 /min LITHOGRAPH OPERATOR-C Shanon Caal 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: [facility] 07-11-2023 13:41-0400 Respiratory rate 18 /min LITHOGRAPH OPERATOR-C Shanon Caal 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: [facility] 07-11-2023 13:41-0400 Systolic blood pressure 136 mm[Hg] LITHOGRAPH OPERATOR-C Shanon Caal 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: [facility] 06-25-2023 00:50-0400 Body weight 109.76 kg LITHOGRAPH OPERATOR-C Shanon Caal 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: [facility] 06-20-2023 11:09-0400 Body mass index (BMI) [Ratio] 39 kg/m2 LITHOGRAPH OPERATOR-C Shanon Caal 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: [facility] 06-20-2023 11:09-0400 Body temperature 96.6 [degF] LITHOGRAPH OPERATOR-C Shanon Caal 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: [facility] 06-20-2023 11:09-0400 Diastolic blood pressure 65 mm[Hg] LITHOGRAPH OPERATOR-C Shanon Caal 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: [facility] 06-20-2023 11:09-0400 Heart rate 68 /min LITHOGRAPH OPERATOR-C Shanon Caal 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: [facility] 06-20-2023 11:09-0400 Respiratory rate 18 /min LITHOGRAPH OPERATOR-C Shanon Caal 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: [facility] 06-20-2023 11:09-0400 Systolic blood pressure 135 mm[Hg] LITHOGRAPH OPERATOR-C Shanon Caal 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: [facility] 05-25-2023 00:42-0500 Body weight 109.76 kg LITHOGRAPH OPERATOR-C Shanon Caal 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: [facility] 05-21-2023 13:55-0500 Body height 167.64 cm LITHOGRAPH OPERATOR-C Shanon Caal 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: [facility] 05-21-2023 13:55-0500 Body mass index (BMI) [Ratio] 39 kg/m2 LITHOGRAPH OPERATOR-C Shanon Caal 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: [facility] 05-21-2023 13:55-0500 Body temperature 97.8 [degF] LITHOGRAPH OPERATOR-C Shanon Caal 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: [facility] 05-21-2023 13:55-0500 Body weight 109.76 kg LITHOGRAPH OPERATOR-C Shanon Caal 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: [facility] 05-21-2023 13:55-0500 Diastolic blood pressure 75 mm[Hg] LITHOGRAPH OPERATOR-C Shanon Caal 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: [facility] 05-21-2023 13:55-0500 Heart rate 82 /min LITHOGRAPH OPERATOR-C Shanon Caal 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: [facility] 05-21-2023 13:55-0500 Respiratory rate 18 /min LITHOGRAPH OPERATOR-C Shanon Caal 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: [facility] 05-21-2023 13:55-0500 Systolic blood pressure 134 mm[Hg] LITHOGRAPH OPERATOR-C Shanon Faulk 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: [facility] 03-22-2023 13:52-0500 Body mass index (BMI) [Ratio] 38 kg/m2 LITHOGRAPH OPERATOR-C Shanon Caal 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: [facility] 03-22-2023 13:52-0500 Body weight 107.04 kg LITHOGRAPH OPERATOR-C Shanon Caal 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: [facility] 03-22-2023 13:52-0500 Diastolic blood pressure 48 mm[Hg] LITHOGRAPH OPERATOR-C Shanon Caal 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: [facility] 03-22-2023 13:52-0500 Heart rate 71 /min LITHOGRAPH OPERATOR-C Shanon Caal 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: [facility] 03-22-2023 13:52-0500 Respiratory rate 20 /min LITHOGRAPH OPERATOR-C Shanon Ten 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: [facility] 03-22-2023 13:52-0500 Systolic blood pressure 97 mm[Hg] LITHOGRAPH OPERATOR-C Shanon Caal 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: [facility] 02-19-2023 14:03-0500 Body mass index (BMI) [Ratio] 38.9 kg/m2 LITHOGRAPH OPERATOR-C Shanon Caal 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: [facility] 02-19-2023 14:03-0500 Body weight 109.31 kg LITHOGRAPH OPERATOR-C Shanon Caal 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: [facility] 02-19-2023 14:03-0500 Diastolic blood pressure 66 mm[Hg] LITHOGRAPH OPERATOR-C Shanon Caal 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: [facility] 02-19-2023 14:03-0500 Heart rate 72 /min LITHOGRAPH OPERATOR-C Shanon Caal 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: [facility] 02-19-2023 14:03-0500 Respiratory rate 18 /min LITHOGRAPH OPERATOR-C Shanon Caal 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: [facility] 02-19-2023 14:03-0500 SaO2% (BldA) [Mass fraction] 96 % LITHOGRAPH OPERATOR-C Shanon Caal 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: [facility] 02-19-2023 14:03-0500 Systolic blood pressure 144 mm[Hg] LITHOGRAPH OPERATOR-C Shanon Caal 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: [facility] 02-09-2023 13:28-0500 Body mass index (BMI) [Ratio] 39.9 kg/m2 LITHOGRAPH OPERATOR-C Shanon Caal 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: [facility] 02-09-2023 13:28-0500 Body weight 112.03 kg LITHOGRAPH OPERATOR-C Shanon Caal 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: [facility] 02-09-2023 13:28-0500 Diastolic blood pressure 55 mm[Hg] LITHOGRAPH OPERATOR-C Shanon Oliveirapkins 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: [facility] 02-09-2023 13:28-0500 Heart rate 70 /min LITHOGRAPH OPERATOR-C Shanon Oliveirapkins 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: [facility] 02-09-2023 13:28-0500 Respiratory rate 18 /min LITHOGRAPH OPERATOR-C Shanon Caal 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: [facility] 02-09-2023 13:28-0500 Systolic blood pressure 114 mm[Hg] LITHOGRAPH OPERATOR-C Shanon Faulk 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: [facility] 09-21-2022 14:03-0400 Body height 167.64 cm LITHOGRAPH OPERATOR-C Shanon Ten 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: [facility] 09-21-2022 14:03-0400 Body mass index (BMI) [Ratio] 39.6 kg/m2 LITHOGRAPH OPERATOR-C Shanon Ten 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: [facility] 09-21-2022 14:03-0400 Body weight 111.58 kg LITHOGRAPH OPERATOR-C Shanon Ten 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: [facility] 09-21-2022 14:03-0400 Diastolic blood pressure 76 mm[Hg] LITHOGRAPH OPERATOR-C Shanon Ten 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: [facility] 09-21-2022 14:03-0400 Heart rate 61 /min LITHOGRAPH OPERATOR-C Shanon Caal 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: [facility] 09-21-2022 14:03-0400 Respiratory rate 20 /min LITHOGRAPH OPERATOR-C Shanon Caal 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: [facility] 09-21-2022 14:03-0400 SaO2% (BldA) [Mass fraction] 94 % LITHOGRAPH OPERATOR-C Shanon Caal 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: [facility] 09-21-2022 14:03-0400 Systolic blood pressure 153 mm[Hg] LITHOGRAPH OPERATOR-C Shanon Caal 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: [facility] 08-17-2022 08:03-0400 Body mass index (BMI) [Ratio] 40 kg/m2 LITHOGRAPH OPERATOR-C Shanon Caal 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: [facility] 08-17-2022 08:03-0400 Body weight 112.49 kg LITHOGRAPH OPERATOR-C Shanon Caal 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: [facility] 08-17-2022 08:03-0400 Diastolic blood pressure 96 mm[Hg] LITHOGRAPH OPERATOR-C Shanon Caal 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: [facility] 08-17-2022 08:03-0400 Heart rate 78 /min LITHOGRAPH OPERATOR-C Shanon Caal 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: [facility] 08-17-2022 08:03-0400 SaO2% (BldA) [Mass fraction] 97 % LITHOGRAPH OPERATOR-C Shanon Caal 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: [facility] 08-17-2022 08:03-0400 Systolic blood pressure 164 mm[Hg] LITHOGRAPH OPERATOR-C Shanon Caal 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: [facility] 06-08-2022 09:40-0400 Body height 167.64 cm LITHOGRAPH OPERATOR-C Shanon Caal 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: [facility] 06-08-2022 09:40-0400 Body mass index (BMI) [Ratio] 38 kg/m2 LITHOGRAPH OPERATOR-C Shanon Caal 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: [facility] 06-08-2022 09:40-0400 Body weight 107.04 kg LITHOGRAPH OPERATOR-C Shanon Caal 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: [facility] 06-08-2022 09:40-0400 Diastolic blood pressure 51 mm[Hg] LITHOGRAPH OPERATOR-C Shanon Caal 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: [facility] 06-08-2022 09:40-0400 Heart rate 83 /min LITHOGRAPH OPERATOR-C Shanon Caal 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: [facility] 06-08-2022 09:40-0400 Respiratory rate 20 /min LITHOGRAPH OPERATOR-C Shanon Caal 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: [facility] 06-08-2022 09:40-0400 SaO2% (BldA) [Mass fraction] 96 % LITHOGRAPH OPERATOR-C Shanon Faulk 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: [facility] 06-08-2022 09:40-0400 Systolic blood pressure 169 mm[Hg] LITHOGRAPH OPERATOR-C Shanon Caal 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: [facility] 05-02-2022 16:46-0500 Body temperature 98.9 [degF] LITHOGRAPH OPERATOR-C Shanon Caal 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: [facility] 05-02-2022 16:46-0500 Diastolic blood pressure 70 mm[Hg] LITHOGRAPH OPERATOR-C Shanon Caal 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: [facility] 05-02-2022 16:46-0500 Heart rate 78 /min LITHOGRAPH OPERATOR-C Shanon Caal 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: [facility] 05-02-2022 16:46-0500 Respiratory rate 18 /min LITHOGRAPH OPERATOR-C Shanon Caal 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: [facility] 05-02-2022 16:46-0500 SaO2% (BldA) [Mass fraction] 96 % LITHOGRAPH OPERATOR-C Shanon Caal 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: [facility] 05-02-2022 16:46-0500 Systolic blood pressure 141 mm[Hg] LITHOGRAPH OPERATOR-C Shanon Caal 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: [facility] 05-02-2022 06:00-0500 Body weight 113.4 kg LITHOGRAPH OPERATOR-C Shanon Caal 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: [facility] 04-30-2022 23:47-0500 Body mass index (BMI) [Ratio] 40 kg/m2 LITHOGRAPH OPERATOR-C Shanon Caal 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: [facility] 04-28-2022 03:35-0500 Inhaled oxygen flow rate 2 L/min LITHOGRAPH OPERATOR-C Shanon Caal 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: [facility] 04-24-2022 21:50-0500 Body temperature 97.9 [degF] [facility] 04-24-2022 21:50-0500 Diastolic blood pressure 70 mm[Hg] [facility] 04-24-2022 21:50-0500 Heart rate 107 /min [facility] 04-24-2022 21:50-0500 Inhaled oxygen flow rate 3 L/min [facility] 04-24-2022 21:50-0500 Respiratory rate 18 /min [facility] 04-24-2022 21:50-0500 SaO2% (BldA) [Mass fraction] 100 % [facility] 04-24-2022 21:50-0500 Systolic blood pressure 114 mm[Hg] [facility] 04-24-2022 17:31-0500 Body height 165.1 cm [facility] 04-24-2022 17:31-0500 Body mass index (BMI) [Ratio] 41 kg/m2 [facility] 04-24-2022 17:31-0500 Body weight 111.9 kg [facility] 12-08-2021 13:12-0400 Body height 165.1 cm LITHOGRAPH OPERATOR-C Shanon Caal 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: [facility] Work Phone: 12-08-2021 13:12-0400 Body mass index (BMI) [Ratio] 40.9 kg/m2 LITHOGRAPH OPERATOR-C Shanon Caal 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: [facility] Work Phone: 12-08-2021 13:12-0400 Body weight 111.58 kg LITHOGRAPH OPERATOR-C Shanon Caal 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: [facility] Work Phone: 12-08-2021 13:12-0400 Diastolic blood pressure 77 mm[Hg] LITHOGRAPH OPERATOR-C Shanon Caal 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: [facility] Work Phone: 12-08-2021 13:12-0400 Heart rate 62 /min LITHOGRAPH OPERATOR-C Shanon Oliveirapkins 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: [facility] Work Phone: 12-08-2021 13:12-0400 Respiratory rate 16 /min LITHOGRAPH OPERATOR-C Shanon Oliveirapkins 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: [facility] Work Phone: 12-08-2021 13:12-0400 Systolic blood pressure 134 mm[Hg] LITHOGRAPH OPERATOR-C Shanon Oliveirapkins 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: [facility] Work Phone: 06-07-2021 13:19-0400 Body height 165.1 cm LITHOGRAPH OPERATOR-C Shanon Faulk 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: [facility] Work Phone: 06-07-2021 13:19-0400 Body mass index (BMI) [Ratio] 37.1 kg/m2 LITHOGRAPH OPERATOR-C Shanon Oliveirapkins 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: [facility] Work Phone: 06-07-2021 13:19-0400 Body weight 101.23 kg LITHOGRAPH OPERATOR-C Shanon Oliveirapkins 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: [facility] Work Phone: 06-07-2021 13:19-0400 Diastolic blood pressure 60 mm[Hg] LITHOGRAPH OPERATOR-C Shanon Faulk 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: [facility] Work Phone: 06-07-2021 13:19-0400 Heart rate 88 /min LITHOGRAPH OPERATOR-C Shanon Faulk 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: [facility] Work Phone: 06-07-2021 13:19-0400 Respiratory rate 18 /min LITHOGRAPH OPERATOR-C Shanon Faulk 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: [facility] Work Phone: 06-07-2021 13:19-0400 Systolic blood pressure 130 mm[Hg] LITHOGRAPH OPERATOR-C Shanon Caal 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: [facility] Work Phone: Encounters Encounter Date Encounter Type Care Provider Facility Start: 08-24-2024 End: 08-26-2024 Evaluation and management of inpatient [facility] Start: 08-24-2024 End: 08-24-2024 Emergency department patient visit Shanon Caal LITHOGRAPH OPERATOR-C Work Phone: -Emergency Department Work Phone: Start: 08-23-2024 Encounter for genera l adult medical examination without abnormal findings Last [facility] Start: 08-07-2024 End: 08-07-[address] Papa Morgan MD -[facility] Work Phone: Start: 08-07-2024 End: 08-07-2024 ambulatory Shanon Caal LITHOGRAPH OPERATOR-C Work Phone: [facility] Work Phone: Start: 07-15-2024 End: 07-15-2024 ambulatory Shanon Caal LITHOGRAPH OPERATOR-C Work Phone: [facility] Work Phone: Start: 07-15-2024 End: 07-15-2024 Patient encounter procedure Shanon Caal LITHOGRAPH OPERATOR-C -Laboratory, Specimen Work Phone: Start: 07-15-2024 End: 07-15-2024 ambulatory Shanon Caal LITHOGRAPH OPERATOR Facility:[facility] Start: 07-14-2024 End: 07-14-2024 Patient encounter procedure Shanon Caal LITHOGRAPH OPERATOR-C -Laboratory Work Phone: Start: 07-14-2024 End: 07-14-2024 ambulatory Shanon Caal LITHOGRAPH OPERATOR Facility:[facility] Start: 01-15-2024 End: 01-15-2024 ambulatory Shanon Caal LITHOGRAPH OPERATOR Facility:[facility] Start: 01-14-2024 End: 01-14-2024 ambulatory Shanon Caal LITHOGRAPH OPERATOR Facility:[facility] Start: 11-16-2023 End: 11-16-2023 ambulatory Shanon Caal LITHOGRAPH OPERATOR Facility:[facility] [place] [place] Start: 10-04-2023 End: 10-04-2023 ambulatory Shanon Caal LITHOGRAPH OPERATOR Facility:[facility] Start: 09-19-2023 End: 09-23-2023 ambulatory Shanon Caal LITHOGRAPH OPERATOR Facility:[facility] Start: 07-13-2023 End: 07-13-2023 ambulatory LITHOGRAPH OPERATOR-C Shanon Caal 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: [facility] Work Phone: Start: 07-13-2023 End: 07-13-2023 Patient encounter procedure LITHOGRAPH OPERATOR-C Shanon Caal 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: [facility] Work Phone: Start: 07-11-2023 End: 07-24-2023 ambulatory LITHOGRAPH OPERATOR-C Shanon Caal 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: [facility] Work Phone: Start: 07-11-2023 End: 07-24-2023 Discharged Recurring LITHOGRAPH OPERATOR-C Shanon Caal 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: [facility] Work Phone: Start: 07-11-2023 Registered Recurring LITHOGRAPH OPERATOR-C Javed Caal 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: [facility] Work Phone: Start: 06-20-2023 End: 06-24-2023 ambulatory LITHOGRAPH OPERATOR-C Shanon Caal 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: [facility] Work Phone: Start: 06-20-2023 End: 06-24-2023 Discharged Recurring LITHOGRAPH OPERATOR-C Shanon Caal 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: [facility] Work Phone: Start: 05-21-2023 End: 05-24-2023 ambulatory LITHOGRAPH OPERATOR-C Shanon Caal 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: [facility] Work Phone: Start: 05-21-2023 End: 05-24-2023 Discharged Recurring LITHOGRAPH OPERATOR-C Shanon Oliveirapkins 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: [facility] Work Phone: Start: 05-17-2023 End: 05-17-2023 Patient encounter procedure LITHOGRAPH OPERATOR-C Shanon Ten 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: [facility] Work Phone: Start: 03-22-2023 End: 03-22-2023 Patient encounter procedure LITHOGRAPH OPERATOR-C Shanon Ten 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: [facility] Work Phone: Start: 02-19-2023 End: 02-19-2023 Patient encounter procedure LITHOGRAPH OPERATOR-C Shanon Faulk 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: [facility] Work Phone: Start: 02-09-2023 End: 02-09-2023 Patient encounter procedure LITHOGRAPH OPERATOR-C Shanon Oliveirapkins 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: [facility] Work Phone: Start: 01-13-2023 End: 01-13-2023 ambulatory LITHOGRAPH OPERATOR-C Shanon Caal 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: [facility] Work Phone: Start: 01-13-2023 End: 01-13-2023 Patient encounter procedure LITHOGRAPH OPERATOR-C Shanon Caal 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: [facility] Work Phone: Start: 01-08-2023 End: 01-08-2023 ambulatory LITHOGRAPH OPERATOR-C Shanon Caal 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: [facility] Work Phone: Start: 01-08-2023 End: 01-08-2023 Patient encounter procedure LITHOGRAPH OPERATOR-C Shanon Caal 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 Start: 11-20-2022 End: 11-20-2022 Patient encounter procedure LITHOGRAPH OPERATOR-C Shanon Caal 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: [facility] Work Phone: Start: 11-20-2022 End: 11-20-2022 ambulatory LITHOGRAPH OPERATOR-C Shanon Caal 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: [facility] Work Phone: Start: 11-20-2022 End: 11-20-2022 Patient encounter procedure LITHOGRAPH OPERATOR-C Shanon Caal 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 Start: 09-21-2022 End: 09-21-2022 Patient encounter procedure LITHOGRAPH OPERATOR-C Shanon Caal 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: [facility] Work Phone: Start: 08-18-2022 End: 08-18-2022 Patient encounter procedure LITHOGRAPH OPERATOR-C Shanon Caal 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: [facility] Work Phone: Start: 08-17-2022 End: 08-17-2022 ambulatory LITHOGRAPH OPERATOR-C Shanon Caal 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: [facility] Work Phone: Start: 08-17-2022 End: 08-17-2022 Patient encounter procedure LITHOGRAPH OPERATOR-C Shanon Caal 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: [facility] Work Phone: Start: 07-06-2022 End: 07-06-2022 Patient encounter procedure LITHOGRAPH OPERATOR-C Shanon Caal 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 Start: 06-08-2022 End: 06-08-2022 ambulatory LITHOGRAPH OPERATOR-C Shanon Caal 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: [facility] Work Phone: Start: 06-08-2022 End: 06-08-2022 Patient encounter procedure LITHOGRAPH OPERATOR-C Shanon Caal 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: [facility] Start: 05-10-2022 Registered Referred LITHOGRAPH OPERATOR-C Jazmine Caal 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: [facility] Start: 05-03-2022 Registered Referred LITHOGRAPH OPERATOR-C Jazmine Caal 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: [facility] Start: 05-02-2022 Non-patient / Non-visit LITHOGRAPH OPERATOR-C Shanon Caal 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: [facility] Start: 05-01-2022 Non-patient / Non-visit LITHOGRAPH OPERATOR-C Shanon Caal 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: [facility] Start: 05-01-2022 Non-patient / Non-visit LITHOGRAPH OPERATOR-C Shanon Caal 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: [facility] Start: 05-01-2022 End: 05-01-2022 Non-patient / Non-visit LITHOGRAPH OPERATOR-C Shanon Caal 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: [facility] Start: 04-30-2022 Non-patient / Non-visit LITHOGRAPH OPERATOR-C Shanon Caal 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: [facility] Start: 04-29-2022 Non-patient / Non-visit LITHOGRAPH OPERATOR-C Shanon Caal 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: [facility] Start: 04-29-2022 Non-patient / Non-visit LITHOGRAPH OPERATOR-C Shanon Caal 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: [facility] Start: 04-28-2022 Non-patient / Non-visit LITHOGRAPH OPERATOR-C Shanon Caal 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: [facility] Start: 04-28-2022 Non-patient / Non-visit LITHOGRAPH OPERATOR-C Shanon Caal 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: [facility] Start: 04-28-2022 Non-patient / Non-visit LITHOGRAPH OPERATOR-C Shanon Caal 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: [facility] Start: 04-28-2022 Non-patient / Non-visit LITHOGRAPH OPERATOR-C Shanon Caal 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: [facility] Start: 04-27-2022 Non-patient / Non-visit LITHOGRAPH OPERATOR-C Shanon Caal 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: [facility] Start: 04-27-2022 Non-patient / Non-visit LITHOGRAPH OPERATOR-C Shanon Caal 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: [facility] Start: 04-27-2022 Non-patient / Non-visit LITHOGRAPH OPERATOR-C Shanon Caal 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: [facility] Start: 04-27-2022 Non-patient / Non-visit LITHOGRAPH OPERATOR-C Shanon Caal 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: [facility] Start: 04-26-2022 Non-patient / Non-visit LITHOGRAPH OPERATOR-C Shanon Caal 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: [facility] Start: 04-26-2022 Non-patient / Non-visit LITHOGRAPH OPERATOR-C Shanon Caal 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: [facility] Start: 04-26-2022 End: 04-26-2022 Non-patient / Non-visit LITHOGRAPH OPERATOR-C Shanon Caal 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: [facility] Start: 04-26-2022 Non-patient / Non-visit LITHOGRAPH OPERATOR-C Shanon Caal 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: [facility] Start: 04-25-2022 Non-patient / Non-visit LITHOGRAPH OPERATOR-C Shanon Caal 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: [facility] Start: 04-25-2022 Non-patient / Non-visit LITHOGRAPH OPERATOR-C Shanon Caal 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: [facility] Start: 04-25-2022 Non-patient / Non-visit LITHOGRAPH OPERATOR-C Shanon Caal 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: [facility] Start: 04-25-2022 End: 04-25-2022 Non-patient / Non-visit LITHOGRAPH OPERATOR-C Shanon Caal 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: [facility] Start: 04-24-2022 Non-patient / Non-visit LITHOGRAPH OPERATOR-C Shanon Caal 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: [facility] Start: 04-24-2022 End: 05-02-2022 [facility] of inpatient [facility] Start: 01-06-2022 End: 01-06-2022 ambulatory LITHOGRAPH OPERATOR-C Shanon Caal 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: [facility] Work Phone: Start: 01-06-2022 End: 01-06-2022 Patient encounter procedure LITHOGRAPH OPERATOR-C Shanon Caal 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: [facility] Start: 12-08-2021 End: 12-08-2021 Patient encounter procedure LITHOGRAPH OPERATOR-C Shanon Caal 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: [facility] Start: 06-29-2021 End: 06-29-2021 Patient encounter procedure LITHOGRAPH OPERATOR-C Shanon Caal 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: [facility] Start: 06-07-2021 End: 06-07-2021 Patient encounter procedure LITHOGRAPH OPERATOR-C Shanon Caal 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: [facility] Procedures Date Procedure Procedure Detail Performing Clinician Start: 08-24-2024 X-ray of chest, PA and lateral views Shaonn Caal LITHOGRAPH OPERATOR-C Work Phone: Start: 08-24-2024 Estimated creatinine clearance Shanon riddle LITHOGRAPH OPERATOR-C Work Phone: Start: 07-15-2024 Urine microalbumin/creatinine ratio measurement Shanon Caal LITHOGRAPH OPERATOR-C Work Phone: Start: 07-14-2024 Parathyroid hormone measurement Shanon Caal LITHOGRAPH OPERATOR-C Work Phone: Start: 07-14-2024 Total iron binding capacity measurement Shanon Caal LITHOGRAPH OPERATOR-C Work Phone: Start: 07-14-2024 Vitamin D, 25-hydroxy measurement Simon hugh Faulk LITHOGRAPH OPERATOR-C Work Phone: Comment on above: Vitamin D StatusDeficiency: <20 ng/mL (5 0nmol/L)Insufficiency: 20-30 ng/mL (50-75 nmol/L)Sufficiency: 30-100 ng/mL (75-250 nmol/L)Toxicity: >100 ng/mL (>250 nmol/L) Start: 08-18-2022 Clostridium difficile detection LITHOGRAPH OPERATOR-C Jin hard Faulk 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: Start: 05-01-2022 Esophagogastroduodenoscopy LITHOGRAPH OPERATOR-C Shanon Caal 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: Start: 04-29-2022 Plain chest X-ray LITHOGRAPH OPERATOR-C Shanon Caal 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: Start: 04-26-2022 Esophagogastroduodenoscopy LITHOGRAPH OPERATOR-C Shanon Caal 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: Start: 04-25-2022 Radiographic procedure of chest LITHOGRAPH OPERATOR-C Jin hard Faulk 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: Start: 04-25-2022 Colonoscopy LITHOGRAPH OPERATOR-Liv Caal 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: Start: 04-24-2022 CT of abdomen and pelvis with oral contrast Start: 12-07-2015 History of placement of stent for coronary artery disease History of coronary artery stent placement LITHOGRAPH OPERATORYari Caal 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: Comment on above: EDT-OZE-Qnrh OM2 w/ 2.75 x 33 mm Xience Alpine Stent 12/07/2015 Bacteria identified in Blood by Culture LITHOGRAPH OPERATOR-Liv Caal 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: 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-Liv Caal 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: Plan of Treatment Date Care Activity Detail Author Start: 08-24-2024 [facility] Start: 05-02-2022 Patient discharge [facility] Start: 05-02-2022 [facility] Start: 05-01-2022 Consultation [facility] Start: 04-30-2022 [facility] of blood product [facility] Start: 04-29-2022 [facility] Start: 04-28-2022 Removal of urinary catheter [facility] Start: 04-26-2022 Referral to chocolatier [facility] Start: 04-26-2022 Catheterization of vein [facility] Start: 04-25-2022 [facility] Start: 04-25-2022 [facility] Start: 04-25-2022 Administration of blood product [facility] Start: 04-25-2022 End: 04-25-2022 [facility] Start: 04-25-2022 [facility] Start: 04-24-2022 Following clinical p athway protocol [facility] Start: 04-24-2022 Application of inter mittent pneumatic compression device [facility] Start: 04-24-2022 Administration of blood product [facility] Start: 04-24-2022 Aspiration precautions [facility] Start: 04-24-2022 Assessment of risk o f venous thromboembolism [facility] Start: 04-24-2022 Consultation [facility] Start: 04-24-2022 Continuous pulse oximetry [facility] Start: 04-24-2022 Elevation of head of bed [facility] Start: 04-24-2022 Fall prevention [facility] Start: 04-24-2022 Incentive spirometry [facility] Start: 04-24-2022 Insertion of cathete r into peripheral vein [facility] Start: 04-24-2022 Introduction of urinary catheter [facility] Start: 04-24-2022 Maintenance therapy [facility] Start: 04-24-2022 Measuring intake and output [facility] Start: 04-24-2022 Oxygen therapy [facility] Start: 04-24-2022 Providing care accor ding to standard [facility] Start: 04-24-2022 Referral to gastroen terology service [facility] Start: 04-24-2022 Referral to general surgeon [facility] Start: 04-24-2022 Referral to occupational therapist [facility] Start: 04-24-2022 Referral to service [facility] Start: 04-24-2022 Vital signs measurements [facility] Start: 04-24-2022 End: 04-24-2022 [facility] Start: 04-24-2022 Verification routine [facility] Start: 04-24-2022 Admission procedure [facility] Start: 04-24-2022 Leukocyte reduced red blood cells [facility] Start: 04-24-2022 [facility] Acetone [Presence] i n Serum or Plasma [facility] Alanine aminotransfe rase [Enzymatic activity/volume] in Serum or Plasma [facility] Albumin [Mass/volume ] in Serum or Plasma [facility] Alkaline phosphatase [Enzymatic activity/volume] in Serum or Plasma [facility] Anion gap measurement [facility] Aspartate aminotrans ferase [Enzymatic activity/volume] in Serum or Plasma [facility] Bilirubin measurement, urine [facility] Bilirubin, total measurement [facility] Blood chemistry [facility] BUN/Creatinine ratio [facility] Calcium [Mass/volume ] in Serum or Plasma [facility] Carbon dioxide, tota l [Moles/volume] in Serum or Plasma [facility] Chloride [Moles/volu me] in Serum or Plasma [facility] Creatinine [Moles/vo lume] in Serum or Plasma [facility] Glucose [Mass/volume ] in Serum or Plasma [facility] Hematocrit [Volume F raction] of Blood [facility] Hematocrit [Volume F raction] of Blood [facility] Hematocrit [Volume F raction] of Blood [facility] Hematocrit [Volume F raction] of Blood [facility] Hematocrit [Volume F raction] of Blood [facility] Hemoglobin [Mass/volume] in Blood [facility] Hemoglobin [Mass/volume] in Blood [facility] Hemoglobin [Mass/volume] in Blood [facility] Hemoglobin [Mass/volume] in Blood [facility] Hemoglobin [Mass/volume] in Blood [facility] Hemoglobin [Presence] in Urine [facility] Hemoglobin A1c/Hemog lobin.total in Blood [facility] Magnesium [Mass/volu me] in Serum or Plasma [facility] Measurement of keton es in urine using dipstick [facility] Measurement of renal function [facility] Microscopic urinalysis [facility] Organism count, microscopic method [facility] Patient referral [facility] Work Phone: pH of Urine [facility] Potassium [Moles/vol ume] in Serum or Plasma [facility] Sodium [Moles/volume ] in Serum or Plasma [facility] Specific gravity of Urine [facility] Total protein measurement [facility] Urea nitrogen [Mass/ volume] in Serum or Plasma [facility] Urinalysis, blood, qualitative [facility] Urine dipstick for glucose [facility] Urine dipstick for l eukocyte esterase [facility] Urine dipstick for nitrite [facility] Urine dipstick for protein [facility] Urine examination [facility] Urine microscopy: epithelial cells [facility] Urobilinogen [Presence] in Urine [facility] White blood cell count [facility] Payers Date Payer Category Payer Self-pay [id number] 2016 Medicare [id number] [facility] [id number] Unknown [id number] Unknown [id number] Unknown [id number] Unknown [id number] Unknown [id number] Unknown [id number] 2.16.8 [id number] Unknown [id number] [id number] Unknown [id number] Unknown [id number] Social History Date Type Detail Facility Start: 06-07-2021 End: 05-17-2023 Tobacco smoking status [facility] Unknown if ever smoked [facility] Start: 1940 Sex Assigned At Male [facility] Start: 05-17-2023 End: 08-24-2024 Tobacco smoking status [facility]IS [facility]sm[facility]) [facility] Start: 07-18-2024 End: 07-22-2024 Sex Male (finding) [facility] Medical Equipment Procedure Code Equipment Code Equipment Origin al Text Equipment Identifier Dates Colonoscopy HEMOSPRAY FDA Start: 04-25-2022 Colonoscopy HEMOSPRAY FDA Start: 04-25-2022 Colonoscopy HEMOSPRAY FDA Start: 04-25-2022 Colonoscopy HEMOSPRAY FDA Start: 04-25-2022 Colonoscopy HEMOSPRAY FDA Start: 04-25-2022 Colonoscopy HEMOSPRAY FDA Start: 04-25-2022 Colonoscopy HEMOSPRAY FDA Start: 04-25-2022 Colonoscopy HEMOSPRAY FDA Start: 04-25-2022 Colonoscopy HEMOSPRAY FDA Start: 04-25-2022 Colonoscopy HEMOSPRAY FDA Start: 04-25-2022 Colonoscopy HEMOSPRAY FDA Start: 04-25-2022 Colonoscopy HEMOSPRAY FDA Start: 04-25-2022 Colonoscopy HEMOSPRAY FDA Start: 04-25-2022 Goals Date Patient Goal Desired Activity /State Functional Status Date Assessment Result Facility 05-02-2022 Functional status Chair [facility] Work Phone: Mental Status Date Assessment Result Facility 08-24-2024 Cognitive function Level Of Cons ciousness Awake;Alert;Appropriate;Follow s [facility] Work Phone: 05-02-2022 Cognitive function Voice/Name [facility] Work Phone: Clinical Notes 12-07-2015 to 08-26-2024 Note Date & Type Note Facility 08-26-2024 Note Patient Choice Patient Name: SOULEYMANE JOYCE Date of : 1940 All Providers Sent Referral Name: [facility] Phone: [phone] Address: [address] [place] [address] 08-26-2024 Note [facility] [place] [facility] Discharge Summary Name: Souleymane Joyce Date of : 1940 Date of Admission: 08/24/2024 Date of Discharge: 08/26/2024 Discharge Attending: Tayla Kirkland DO Primary Care Provider: Shanon Caal Type of Admission: Admission Code Status: Full Code Reason for Admission Atrial fibrillation with Slow ventricular response Discharge Diagnoses: CAD s/p PCI in 2016 Hypertension Hyperlipidemia Hypothyroidism LE swelling Medical History[1] Surgical History[2] Family History[3] Social History[4] Hospital Course Souleymane Joyce is a 83 y.o. male who presented to the [facility] as a transfer from [facility] due to concerns that he would need a pacemaker for symptomatic bradycardia. He has been having symptoms of fatigue and flushing over the last several weeks that progressed over the weekend prior to his admission. His primary chocolatier had decreased his atenolol from 100mg to 50mg recently. On admission he was found to be in atrial fibrillation with slow ventricular response. His atenolol was stopped as well as his losartan. His symptoms improved after holding these medications. Echo showed normal LV function and no significant valvular abnormalities. He was able to ambulate without symptoms and his HR improved with ambulation. He was discharged home in stable condition and recommended follow up with his [employer]her in [place]. Consultants: IP CONSULT TO CARDIOLOGY IP CONSULT TO HOME CARE NEEDS Procedures: None Last diet during hospitalization: Adult diet Regular Recommended at discharge: Same as above. Activity No restriction. Disposition: Home Condition at Discharge: good Followup Testing/ Instructions: N/A Facility/Home Care Agency: [facility] Pending Results: None No future appointments. Discharge Plan Medication List START taking these medications apixaban 5 MG tablet Commonly known as: Eliquis Take 1 tablet (5 mg) by mouth 2 times daily. atorvastatin 80 MG tablet Commonly known as: Lipitor Take 1 tablet (80 mg) by mouth Nightly. clopidogrel 75 MG tablet Commonly known as: Plavix Take 1 tablet (75 mg) by mouth daily. Start taking on: August 27, 2024 CONTINUE taking these medications cholecalciferol 25 MCG (1000 UT) capsule Commonly known as: Vitamin D-3 Cinnamon Bark powder famotidine 20 MG tablet Commonly known as: Pepcid furosemide 40 MG tablet Commonly known as: Lasix levothyroxine 25 MCG tablet Commonly known as: Synthroid, Levoxyl omega-3 acid ethyl esters 1 g capsule Commonly known as: Lovaza STOP taking these medications atenolol 50 MG tablet Commonly known as: Tenormin LOSARTAN POTASSIUM PO Where to Get Your Medications These medications were sent to [facility] [address] [place] [id number] Hours: Sunday to Sunday 10 am to 6 pm apixaban 5 MG tablet atorvastatin 80 MG tablet clopidogrel 75 MG tablet Objective: Physical Exam: Vitals: BP 153/78 Pulse 64 Temp (!) 35.9 ?C (96.6 ?F) (Temporal) Resp 16 Ht 5' 4 (1.626 m) Wt 228 lb (103 kg) SpO2 98% BMI 39.14 kg/m? Intake/Output Summary (Last 24 hours) at 08/26/2024 1616 Last data filed at 08/26/2024 1404 Gross per 24 hour Intake 600 ml Output -- Net 600 ml Admission weight: 228 lb 14.4 oz (104 kg) Last weight: Wt Readings from Last 1 Encounters: 08/25/24 228 lb (103 kg) Body mass index is 39.14 kg/m?. Laboratory Tests: NT-ProBNP level; last two recorded values, may include those outside this admission. No results found for: BNP Lab Results Component Value Date WBC 8.4 08/24/2024 HGB 12.8 (L) 08/24/2024 HCT 37.8 (L) 08/24/2024 MCV 95.9 08/24/2024 PLT 132 (L) 08/24/2024 Lab Results Component Value Date GLUCOSE 137 (H) 08/26/2024 CALCIUM 8.6 (L) 08/26/2024 NA 144 08/26/2024 K 3.6 08/26/2024 CO2 26 08/26/2024 CL 111 (H) 08/26/2024 BUN 23 08/26/2024 CREATININE 1.15 08/26/2024 Lab Results Component Value Date ALT 16 08/24/2024 AST 32 08/24/2024 ALKPHOS 68 08/24/2024 BILITOT 0.8 08/24/2024 National Registry/ Accreditation Requirements/ Other DC information. Quality Indicators if applicable. Other Cardiology Discharge Recommendations Cardiology followup: [x] With his chocolatier at [place], patient will call to schedule [] Recommended; unable to arrange at this time, will arrange post-discharge [] If appointment was made, see above Total time Discharge activity. []30 min or less [x]Greater than 30 min Tayla Kirkland, Parts of this note may be generated using a voice recognition software program. Please excuse any religious education coordinator errors that may have occurred. This note was electronically signed by Tayla Kirkland DO (more content not included)... [facility] 08-26-2024 Note ELECTROPHYSIOLOGY QAMAR TRUJILLO NOTE Chart and interval events reviewed. Reason for Visit generalized weakness SUBJECTIVE: Souleymane Joyce states he feels a lot better than he did in the emergency department several days ago. Further history is obtained from outpatient notes. It is felt that he cannot be anticoagulated safely given GI bleeding. Additionally, he was on 100 mg of atenolol, saw his chocolatier to cut things back to 50 before we ultimately discontinued upon admission. He has not been walking in the halls. SCHEDULED MEDICATIONS: Scheduled Meds[1] Principal Problem: Bradycardia Review of Systems: Review of Systems VITAL SIGNS: Vitals: 08/26/24 0036 08/26/24 0540 08/26/24 0835 08/26/24 1244 BP: 144/79 127/60 136/75 153/78 BP Location: Left arm Left arm Patient Position: Sitting Sitting Pulse: (!) 49 (!) 49 86 64 Resp: 16 16 20 16 Temp: 36.3 ?C (97.4 ?F) 36.1 ?C (97 ?F) (!) 35.4 ?C (95.8 ?F) (!) 35.9 ?C (96.6 ?F) TempSrc: Temporal Temporal Temporal Temporal SpO2: 95% 97% 98% 98% Weight: Height: Intake/Output Summary (Last 24 hours) at 08/26/2024 1407 Last data filed at 08/26/2024 1404 Gross per 24 hour Intake 600 ml Output -- Net 600 ml @[id number]@ Physical Exam: Physical Exam Vitals reviewed. Constitutional: Appearance: Normal appearance. HENT: Head: Normocephalic. Right Ear: External ear normal. Left Ear: External ear normal. Nose: Nose normal. Mouth/Throat: Mouth: Mucous membranes are moist. Eyes: Pupils: Pupils are equal, round, and reactive to light. Cardiovascular: Rate and Rhythm: Normal rate. Rhythm irregular. Heart sounds: Murmur heard. Musculoskeletal: General: Normal range of motion. Right lower leg: Edema present. Left lower leg: Edema present. Skin: General: Skin is warm and dry. Coloration: Skin is not jaundiced. Neurological: General: No focal deficit present. Mental Status: He is alert. Psychiatric: Mood and Affect: Mood normal. Behavior: Behavior normal. Thought Content: Thought content normal. Judgment: Judgment normal. Data: Scheduled Meds: Reviewed Continuous Infusions: Continuous Meds[2] CBC: Recent Labs 08/24/241815 WBC 8.4 HGB 12.8* HCT 37.8* PLT 132* BMP: Recent Labs 08/24/24 1816 08/26/24 0928 NA 142 144 K 3.8 3.6 CL 108* 111* CO2 22* 26 BUN 26* 23 CREATININE 1.43* 1.15 INR:No results for input(s): INR in the last 72 hours. No results for input(s): BNP in the last 72 hours. TSH: Lab Results Component Value Date TSH 2.04 08/24/2024 Cardiac Injury Profile: No results for input(s): CKTOTAL, CKMB, TROPONINI in the last 72 hours. Lipid Profile: Lab Results Component Value Date TRIG 94 08/25/2024 HDL 27 (L) 08/25/2024 LDLCALC 75 08/25/2024 CHOL 121 08/25/2024 EKG: See Report Telemetry Reviewed: Atrial fibrillation, with asleep heart rates in the 35-40 bpm range. No complete heart block is observed. In the awake state at rest heart rates around 60. Echo: See Report IMPRESSIONS/RECOMMENDATIONS: Atrial fibrillation: Thought to be paroxysmal but recently more permanent and his chocolatier in [place] was continuing a rate control and anticoagulation strategy. I would leave him off of his beta-redd, ambulate, if heart rate augments, would not place permanent pacemaker at this point. He feels much better off of his 100 mg of atenolol. Electronicallysigned by Rylan Bhandari MD on 08/26/2024 at 2:07 PM [1] apixaban, 5 mg, Oral, BID atorvastatin, 80 mg, Oral, Nightly clopidogrel, 75 mg, Oral, Daily famotidine, 20 mg, Oral, BID furosemide, 40 mg, Oral, Daily levothyroxine, 25 mcg, Oral, qAM AC sodium chloride 0.9%, 5-40 mL, IntraVENous, q12h [2] [facility] 08-26-2024 Note Start [facility] Note Home Health Referral Educated patient on Home Care and services available. Patient offered choice of available HHC and agreeable to SN services with [facility]. Care Types: None Isolation Precautions: No active isolations Social Determinates of Health: Tobacco Use: Not on file Social History Substance and Sexual Activity Alcohol Use Not on file Social History Substance and Sexual Activity Drug Use Not on file Does the patient have any financial resource strain? No Does the patient have any food insecurities? No Does the patient have any housing instabilities? No If any of the above is noted as yes - consider a REGULATORY TECHNICIAN evaluation once the patient returns home. START PATIENT REGISTRATION INFORMATION Order Information Order Signing Physician: Marjorie Fox MD Service Ordered RN ?: Yes Service Ordered PT ?: No Service Ordered OT ?: No Service Ordered ST ?: No Service Ordered REGULATORY TECHNICIAN?:No Service Ordered TRANSMISSION ENGINEER?: No Following Physician: Shanon Caal Following Physician Overseeing Physician: Shanon Caal (Required for Residents only) Agreeable to Follow? Yes Date/Time of Call 08/26/24 1:03 PM, Spoke with: left message with office. Care Coordination Same Day SOC?: No Primary Care Physician: Shanon Caal Primary Care Physician Primary Care Physician Address: [address] [place] [id number] Visit Instructions: N/A Service Discharge Location Type: Home with Home Care Service Facility Name: N/A Service Floor Facility: N/A Service Room No: N/A Demographics Patient Last Name: Isiah Patient First Name: Souleymane Language/Communication Barrier: na Service Address: [address] Service City: [facility] ST: [place] Service ZIP: [address] Service (home) Other phone numbers: No relevant phone numbers on file. Emergency Contact: Extended Emergency Contact Information Primary Emergency Contact: Breana Okeefe Mobile Relation: Other Preferred language: Lao Intelligence Manager needed? No Secondary Emergency Contact: Marissa Ramos Relation: Spouse Admission Information Admit Date: 08/24/2024 Patient status at discharge: Inpatient Admitting Diagnosis: Bradycardia [R00.1] Caregiver Information Caregiver First Name: self Caregiver Last Name: self Caregiver Relationship to Patient self Caregiver Phone Number: na Caregiver Notes: N/A Broadband Voice List HIGHTECH: [employer] TECH - NEXT DAY REQUEST Requests Next Available SOC/LETI END PATIENT REGISTRATION INFORMATION Pt Home Health goal TBD COVID Status 1. Do you have any upper respiratory symptoms (cough, SOB, Fever)? No 2. Have you been exposed to anyone with COVID-19 Virus? No Answer only if pending or positive for COVID-19? 1. Agreeable to wear PPE at each visit? No 2. Is the hospital supplying them with PPE upon Discharge? No Start P[facility] Summary General Report/ Additional Comments Med management afib Discharge Date: pending Referral Source-PACC: (Hospital/Unit): [facility] / W4-438/W4-438 A End PACC Note [facility] 08-26-2024 Note [facility] Cardiology /Electrophysiology Progress Note HPI / Interval History: Souleymane Joyce is a 83 y.o. male with history of CAD status post PCI OM in 2016, atrial fibrillation (on atenolol and recently discontinued oral anticoagulation), hypertension, hyperlipidemia presents from [facility] with chief complaints of fatigue. This morning, patient continues to have episodes of flushing and feeling diaphoretic. He denies any chest pain or shortness of breath. Assessment/Plan HF NYHA Class [] I [] II [] III [] IV []Unable to assess [] N/A Atrial fibrillation with Slow ventricular response - Hold home atenolol - Continue Eliquis - Monitor on telemetry - EP consulted, appreciate recs CAD s/p PCI in 2016 -continue plavix -continue statin Hypertension - Currently stable - Discontinue home losartan Hyperlipidemia - continue atorvastatin 80 mg nightly Hypothyroidism - TSH normal - Continue home Synthroid 25 mcg LE swelling -continue home lasix 40mg every day Medications: Scheduled Meds[1] Infusion Medications: Continuous Meds[2] Physical Examination: Vitals: 08/25/24 1828 08/25/24201208/26/24 0036 08/26/24 0540 BP: 143/59 139/62 144/79 127/60 BP Location: Right arm Left arm Left arm Patient Position: Sitting Sitting Sitting Pulse: 62 58 (!) 49 (!) 49 Resp: 20 16 16 Temp: 36.5 ?C (97.7 ?F) 36.1 ?C (96.9 ?F) 36.3 ?C (97.4 ?F) 36.1 ?C (97 ?F) TempSrc: Temporal Temporal Temporal Temporal SpO2: 98% 97% 95% 97% Weight: Height: Intake/Output Summary (Last 24 hours) at 08/26/2024 0743 Last data filed at 08/26/2024 0649 Gross per 24 hour Intake 840 ml Output -- Net 840 ml Patient Vitals for the past 168 hrs: Weight Weight Method 08/25/24 1054 228 lb (103 kg) -- 08/24/24 1400 228 lb 14.4 oz (104 kg) Bed scale Physical Exam Constitutional: NAD Psychiatric: Alert. Medical insight intact Neck: No JVD Respiratory: Lungs are CTA Heart: regular, bradycardic ; Nl S1 and S2, no murmur, no rub, gallop Abdomen: NABS; soft, non-tender, non-distended Extremities: no LE edema Skin: Warm to touch and well perfused Laboratory Tests: TROPONIN I, CONVENTIONAL SENSITIVITY No results found for: CKTOTAL, CKMB, CKMBINDEX, TROPONINI TROPONIN I, HIGH SENSITIVITY No results found for: TROPHSBASE No results found for: TROPHS2 No results found for: TROPDELTBASE No results found for: TROPHS3 No results found for: TROPDELTSEC Recent Labs 08/24/24 1816 NA 142 K 3.8 CL 108* CO2 22* BUN 26* CREATININE 1.43* Recent Labs 08/24/24 1816 WBC 8.4 HGB 12.8* HCT 37.8* MCV 95.9 PLT 132* No results for input(s): BNP in the last 72 hours. Recent Labs 08/25/24 0351 TRIG 94 HDL 27* LDLCALC 75 CHOL 121 No results found for: LDLCHOLESTER Lab Results Component Value Date TSH 2.04 08/24/2024 EF BP Date Value Ref Range Status 08/25/2024 72 55 - 100 % Final 08/24/24 TRANSTHORACIC ECHOCARDIOGRAM (TTE) COMPLETE (CONTRAST/BUBBLE/3D PRN) 08/25/2024 3:15 PM (Final) Interpretation Summary Left Ventricle: Left ventricle size is normal. Moderately increased wall thickness. Findings consistent with moderate concentric hypertrophy. Hyperdynamic left ventricular systolic function. EF by 2D Simpsons Biplane is 72%. Normal wall motion. Right Ventricle: Right ventricle size is normal. Normal systolic function. Left Atrium: Left atrium is severely dilated. LA Vol Index A/L is 51 mL/m2. No significant valvular abnormalities. Signed by: Zoë Escobedo MD on 08/25/2024 3:15 PM Other reports reviewed: Cardiac Tests: ECG: a fib Tracing reviewed. Telemetry findings reviewed: a fib EF BP Date Value Ref Range Status 08/25/2024 72 55 - 100 % Final Tayla Kirkland DO Date Of Service 08/26/2024 I, Dr. Fox, saw and evaluated the patient. I personally obtained the colindres and critical portions of the history and physical exam. I reviewed the chart, the fellow's documentation, and discussed the patient with the fellow. I agree with the fellow's medical decision making and have edited the note to reflect my clinical findings and my assessment and plan. -Patient feels well. He walked around the nursing station with increased heart rates to 80-90 bpm, asymptomatic. EP stated no indication for PPM. Consider as an outpatient a Holter monitor. [1] apixaban, 5 mg, Oral, BID atorvastatin, 80 mg, Oral, Nightly clopidogrel, 75 mg, Oral, Daily famotidine, 20 mg, Oral, BID levothyroxine, 25 mcg, Oral, qAM AC [Held by provider] losartan, 100 mg, Oral, Daily sodium chloride 0.9%, 5-40 mL, IntraVENous, q12h [2] [facility] 08-25-2024 Note ELECTROPHYSIOLOGY MA OGRESS NOTE Chart and interval events reviewed. Reason for Visit fatigue SUBJECTIVE: Souleymane Joyce states he is feeling better this morning but is unclear to me how much. He is up in a chair, does not really know any of his medications. He is not aware of the atrial fibrillation in terms of palpitation. Some records have come across. Historically by both stress nuclear and echocardiography he has had normal LV function. SCHEDULED MEDICATIONS: Scheduled Meds[1] Principal Problem: Bradycardia Review of Systems: Review of Systems VITAL SIGNS: Vitals: 08/25/24 0813 08/25/24 0816 08/25/24 1054 08/25/24 1228 BP: 112/64 134/70 BP Location: Right arm Patient Position: Sitting Pulse: 51 52 58 Resp: 18 20 Temp: (!) 35.8 ?C (96.5 ?F) 36.1 ?C (96.9 ?F) 36.1 ?C (97 ?F) TempSrc: Temporal Temporal Temporal SpO2: 97% 95% 98% Weight: 228 lb (103 kg) Height: 5' 4 (1.626 m) Intake/Output Summary (Last 24 hours) at 08/25/2024 1501 Last data filed at 08/25/2024 1012 Gross per 24 hour Intake 480 ml Output -- Net 480 ml @[id number]@ Physical Exam: Physical Exam Vitals reviewed. Constitutional: Appearance: Normal appearance. HENT: Head: Normocephalic. Right Ear: External ear normal. Left Ear: External ear normal. Nose: Nose normal. Mouth/Throat: Mouth: Mucous membranes are moist. Eyes: Pupils: Pupils are equal, round, and reactive to light. Cardiovascular: Rate and Rhythm: Normal rate. Rhythm irregular. Heart sounds: Murmur heard. Pulmonary: Effort: No respiratory distress. Musculoskeletal: General: Normal range of motion. Right lower leg: Edema present. Left lower leg: Edema present. Skin: General: Skin is warm and dry. Coloration: Skin is not jaundiced. Neurological: General: No focal deficit present. Mental Status: He is alert. Cranial Nerves: No cranial nerve deficit. Psychiatric: Mood and Affect: Mood normal. Behavior: Behavior normal. Thought Content: Thought content normal. Judgment: Judgment normal. Data: Scheduled Meds: Reviewed Continuous Infusions: Continuous Meds[2] CBC: Recent Labs 08/24/24 1816 WBC 8.4 HGB 12.8* HCT 37.8* PLT 132* BMP: Recent Labs 08/24/24 1816 NA 142 K 3.8 CL 108* CO2 22* BUN 26* CREATININE 1.43* INR:No results for input(s): INR in the last 72 hours. No results for input(s): BNP in the last 72 hours. TSH: Lab Results Component Value Date TSH 2.04 08/24/2024 Cardiac Injury Profile: No results for input(s): CKTOTAL, CKMB, TROPONINI in the last 72 hours. Lipid Profile: Lab Results Component Value Date TRIG 94 08/25/2024 HDL 27 (L) 08/25/2024 LDLCALC 75 08/25/2024 CHOL 121 08/25/2024 EKG: See Report Telemetry Reviewed: Rate controlled atrial fibrillation, 12 seconds of a wide-complex tachycardia which is quite irregular, preceded by apparent PVCs of similar morphology Echo: See Report IMPRESSIONS/RECOMMENDATIONS: Atrial fibrillation: His heart rate has improved significantly without the atenolol. Telemetry is under sensing his QRS so the trends are inaccurate but at rest he is in the 50 to 65 bpm range. Would maintain his apixaban. No pacing indication at this point. Would leave him in atrial fibrillation and see how he does rather than strive for sinus rhythm. Wide-complex tachycardia: There was a regular, its most consistent with nonsustained ventricular tachycardia. Echocardiography is pending but historically has had normal LV function. Would not recommend any specific therapy. Electronicallysigned by Rylan Bhandari MD on 08/25/2024 at 3:01 PM [1] apixaban, 5 mg, Oral, BID atorvastatin, 80 mg, Oral, Nightly clopidogrel, 75 mg, Oral, Daily famotidine, 20 mg, Oral, BID levothyroxine, 25 mcg, Oral, qAM AC [Held by provider] losartan, 100 mg, Oral, Daily sodium chloride 0.9%, 5-40 mL, IntraVENous, q12h [2] [facility] 08-25-2024 Note [facility] Cardiology /Electrophysiology Progress Note HPI / Interval History: Souleymane Joyce is a 83 y.o. male with history of CAD status post PCI OM in 2016, atrial fibrillation (on atenolol and recently discontinued oral anticoagulation), hypertension, hyperlipidemia presents from [facility] with chief complaints of fatigue. This morning, patient feels well off the beta redd and the losartan. He states he feels better than he has in a long time. He has no symptoms this morning. Assessment/Plan HF NYHA Class [] I [] II [] III [] IV []Unable to assess [] N/A Atrial fibrillation with Slow ventricular response - Hold home atenolol - Holding home losartan - Continue Eliquis - Monitor on telemetry - Check TTE - EP consulted, appreciate recs -Reached out to his chocolatier and they are faxing records over Hypertension - Currently stable - Holding home losartan Hyperlipidemia - continue atorvastatin 80 mg nightly Hypothyroidism - TSH normal - Continue home Synthroid 25 mcg Medications: Scheduled Meds[1] Infusion Medications: Continuous Meds[2] Physical Examination: Vitals: 08/25/24 0033 08/25/24 0414 08/25/24 0813 08/25/24 0816 BP: 123/61 117/58 112/64 BP Location: Patient Position: Pulse: (!) 48 51 52 Resp: 16 17 18 Temp: 36.1 ?C (97 ?F) (!) 35.9 ?C (96.6 ?F) (!) 35.8 ?C (96.5 ?F) 36.1 ?C (96.9 ?F) TempSrc: Temporal Temporal Temporal Temporal SpO2: 100% 98% 97% 95% Weight: Height: Intake/Output Summary (Last 24 hours) at 08/25/2024 0822 Last data filed at 08/24/2024 1817 Gross per 24 hour Intake 240 ml Output -- Net 240 ml Patient Vitals for the past 168 hrs: Weight Weight Method 08/24/24 1400 228 lb 14.4 oz (104 kg) Bed scale Physical Exam Constitutional: NAD Psychiatric: Alert. Medical insight intact Neck: No JVD Respiratory: Lungs are CTA Heart: regular, bradycardic ; Nl S1 and S2, no murmur, no rub, gallop Abdomen: NABS; soft, non-tender, non-distended Extremities: no LE edema Skin: Warm to touch and well perfused Laboratory Tests: TROPONIN I, CONVENTIONAL SENSITIVITY No results found for: CKTOTAL, CKMB, CKMBINDEX, TROPONINI TROPONIN I, HIGH SENSITIVITY No results found for: TROPHSBASE No results found for: TROPHS2 No results found for: TROPDELTBASE No results found for: TROPHS3 No results found for: TROPDELTSEC Recent Labs 08/24/241815 NA 142 K 3.8 CL 108* CO2 22* BUN 26* CREATININE 1.43* Recent Labs 08/24/241815 WBC 8.4 HGB 12.8* HCT 37.8* MCV 95.9 PLT 132* No results for input(s): BNP in the last 72 hours. Recent Labs 08/25/24 0351 TRIG 94 HDL 27* LDLCALC 75 CHOL 121 No results found for: LDLCHOLESTER Lab Results Component Value Date TSH 2.04 08/24/2024 No results found for: EFBP, PLVEF, LVEFPHYS, LVEF2D, EF No results found for this or any previous visit. Other reports reviewed: Cardiac Tests: ECG: a fib Tracing reviewed. Telemetry findings reviewed: a fib, one run of NSVT No results found for: EFBP, PLVEF, LVEFPHYS, LVEF2D, EF Tayla Kirkland, Date Of Service 08/25/2024 I, Dr. Fox, saw and evaluated the patient. I personally obtained the colindres and critical portions of the history and physical exam. I reviewed the chart, the fellow's documentation, and discussed the patient with the fellow. I agree with the fellow's medical decision making and have edited the note to reflect my clinical findings and my assessment and plan. [1] apixaban, 5 mg, Oral, BID atorvastatin, 80 mg, Oral, Nightly clopidogrel, 75 mg, Oral, Daily levothyroxine, 25 mcg, Oral, qAM AC [Held by provider] losartan, 100 mg, Oral, Daily sodium chloride 0.9%, 5-40 mL, IntraVENous, q12h sucralfate, 1 g, Oral, TID WC [2] [facility] 08-24-2024 Note [facility] [place] [facility] [place]/In-Patient Cardiology Service (ICS) History and Physical If patient is on ICS, for questions (see Jackscrew Worker Finder): 7:00 AM- 5:00 PM: Contact ICS Fellow 5:00 PM - 11:00 PM: Contact ICS Moonlighter 11:00 PM- 7:00 AM: Contact Night Call (HLU) Fellow Chief Complaint: Fatigue History of Present Illness: Souleymane Joyce is a 83 y.o. male with history of CAD status post PCI OM in 2016, atrial fibrillation (on atenolol and recently discontinued oral anticoagulation), hypertension, hyperlipidemia presents from [facility] with chief complaints of fatigue. His symptoms have been ongoing for the past few weeks, and have progressively worsened. Some of his medications were adjusted by his PCP and chocolatier Dr. Morgan however patient is a poor historian and was unable to tell me what led to these changes. He currently has no symptoms. He denies any ongoing chest pain, shortness of breath, nausea, vomiting, abdominal pain, presyncope or syncope symptoms. Vitals are stable, except for bradycardia at 54. Labs pending. EP has been consulted and they recommend holding beta-redd and restarting Eliquis and monitoring on telemetry. Formal records from Dr. Morgan's office will need to be obtained tomorrow. Assessment/Plan HF NYHA Class [] I [] II [] III [] IV []Unable to assess Atrial fibrillation with SVR - Hold home atenolol - Holding home losartan (mainly to prevent hypotension in the setting of already ongoing bradycardia) -Restart Eliquis - Monitor on telemetry - Check EKG - Check TTE - EP consulted Hypertension - Currently stable - Holding home losartan Hyperlipidemia -Check lipid panel - Resume atorvastatin 80 mg nightly Hypothyroidism - Check TSH - Continue home Synthroid 25 mcg Medications: Scheduled Meds[1] Infusion Medications: Continuous Meds[2] Physical Examination: Vitals: Vitals: 08/24/24 1400 08/24/24 1629 BP: 125/69 110/53 BP Location: Left arm Left arm Patient Position: Lying Lying Pulse: 54 54 Resp: 20 20 Temp: 36.3 ?C (97.4 ?F) 36.4 ?C (97.5 ?F) TempSrc: Temporal Temporal SpO2: 98% 98% Weight: 228 lb 14.4 oz (104 kg) Height: 5' 4 (1.626 m) No intake or output data in the 24 hours ending 08/24/24 1722 Wt Readings from Last 3 Encounters: 08/24/24 228 lb 14.4 oz (104 kg) Physical Exam Constitutional: Appearance: Normal appearance. Cardiovascular: Rate and Rhythm: Bradycardia present. Rhythm irregular. Pulses: Normal pulses. Heart sounds: Normal heart sounds. Pulmonary: Effort: Pulmonary effort is normal. Breath sounds: Normal breath sounds. Musculoskeletal: General: Normal range of motion. Right lower leg: Edema present. Left lower leg: Edema present. Skin: General: Skin is warm. Neurological: Mental Status: He is alert and oriented to person, place, and time. Laboratory Tests: TROPONIN I, CONVENTIONAL SENSITIVITY No results found for: CKTOTAL, CKMB, CKMBINDEX, TROPONINI TROPONIN I, HIGH SENSITIVITY No results found for: TROPHSBASE No results found for: TROPHS2 No results found for: TROPDELTBASE No results found for: TROPHS3 No results found for: TROPDELTSEC No results for input(s): NA, K, CL, CO2, BUN, CREATININE, GLU in the last 72 hours. No results for input(s): WBC, HGB, HCT, MCV, PLT in the last 72 hours. No results found for: HGBA1C No results found for: TSH No results found for: CHOL No results found for: HDL No results found for: LDLCALC No results found for: TRIG No results found for: CHOLHDL No results found for: LDLCHOLESTER No lab exists for component: NTPROBNP No components found for: LVEF, LVEFMODE Radiology: CXR (image reviewed): Cardiac Tests Personally Reviewed: Last EKG No results found for this or any previous visit. Tracing reviewed. Telemetry findings: Bradycardia with a.fib Reports reviewed: Last Echo No results found for this or any previous visit. Last Cath 12/07/15 (Final) Narrative Ordered by an unspecified provider. Last Stress Test No results found for this or any previous visit. Last EP study No results found for this or any previous visit. No results found for: EFBP, PLVEF, LVEFPHYS, LVEF2D, EF Past Medical History: Medical History[3] Past Surgical History Surgical History[4] Family History: Family History[5] Social History: Social History[6] Shannan Garica MD DATE of SERVICE: 08/24/2024 I, Dr. Fox, saw and evaluated the patient on 08/25/2024. I personally obtained the colindres and critical portions of the history and physical exam. I reviewed the chart, the fellow's documentation, and discussed the patient with the fellow. I agree with the fellow's medical decision making and have edited the note to reflect my clinical findings and my assessment and plan. Still episodes of s (more content not included)... [facility] 08-24-2024 Discharge summary Note Date/Time August 24, 2024 8:21am [facility] Medical Records Department [address] [place] [id number] Emergency Department Summary 08/24/24 MR#: [id number] Acct: [id number] Name: SOULEYMANE JOYEC Rep #:[id number] : 1940 83 From: Juancho Valle DO PCP: RUSS Hernandez tus:REG ER Location: ED HPI History of Present Illness Chief Complaint: General Illness Narrative Narrative: Patient is a 83-year-old male past medical history of paroxysmal atrial fibrillation, hypothyroidism, BPH, hyperlipidemia who presented to the emerged part with a chief complaint of generalized not feeling well overall. Patient states that he has been feeling lousy for the last several days and notes that he followed up with his primary care physician last week and noted that they could not find any acute issues to correlate with his symptoms. He states that he also recently followed up with his chocolatier Dr. Morgan who took him off his statin, Plavix, niacin and he states that he does not agree with this. Patient also noted that his atenolol was cut in half he was on 50 mg twice dailyand he was told to take it once a day in the morning. [facility] Medical History Bilateral leg ulcer Dependent edema Lymphedema Leg edema, right Leg edema, left Leg swelling Obstructive sleep apnea History of upper gastrointestinal hemorrhage History of myocardial infarction Obesity (BMI 30-39.9) Paroxysmal atrial fibrillation COVID-19 virus detected (03/21/21) Obstructive sleep apnea Obesity BPH (benign prostatic hyperplasia) Essential (primary) hypertension Hyperlipidemia 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 GERD (gastroesophageal reflux disease) Syncope and collapse Cardiac arrest (11/2015) Home Medications ?Medication ?Instructions ?Recorded ?Last Taken ?Type omega-3 fatty acids 1,000 mg 1,000 mg PO DAILY 1 Unknown History capsule (Fish Oil Concentrate) cinnamon bark 500 mg capsule 500 mg PO DAILY 12/08/21 Unknown History (Cinnamon) levothyroxine 25 mcg tablet 25 mcg PO DAILY 02/09/23 U nknown History losartan 100 mg tablet 100 mg PO DAILY #90 tabs Unknown Rx nitroglycerin 0.4 mg sublingual 0.4 mg sublingual Q5-1 5M PRN chest 02/19/23 Unknown Rx tablet pain #25 tabs cholecalciferol (vitamin D3) 50 50 mcg PO DAILY Unknown History mcg (2,000 unit) capsule furosemide 40 mg tablet 40 mg PO DAILY #90 tabs 03/26 06/17 Unknown Rx famotidine 20 mg tablet 20 mg PO BID #60 tabs Unknown Rx atenolol 50 mg tablet 50 mg PO QDAY #90 tabs 08/07 Unknown Rx Allergy/AdvReac Type Severity Reaction Status Date / Time No Known Allergies Allergy Unverified 08/07/24 14:34 Family History Father CAD (coronary artery disease) Heart disease Hypertension Myocardial infarction Brother CAD (coronary artery disease) Heart disease Hypertension Myocardial infarction Mother CAD (coronary artery disease) Heart disease Hypertension Myocardial infarction Other Diabetes Surgical History History of total right hip replacement History of coronary artery stent placement (12/07/15) History of right hip replacement (09/2013) History of hemorrhoidectomy (1972) Social History household members: spouse Smoking Status: Former smoker how long ago did patient quit smoking: Quit in his 30s, smoked since teen (~ 15-20 years), < 1 ppd day. alcohol intake: former substance use type: does not use caffeine: Yes Type: tea Number of servings: 2 ROS ROS ED ROS Narrative Constitutional: Denies lightness, dizziness, fevers, chills Eyes: Denies change in vision double vision blurry vision Cardiovascular: Denies chest pain or palpitations Respiratory: Denies coughing wheezing shortness of breath Abdomen: Denies abdominal pain nausea vomit diarrhea : Denies urinary symptoms Neurological: Denies numbness, wheeze, tingling Musculoskeletal: Denies back pain Skin: Denies rashes or lesions EXAM Physical Exam Narrative Exam Narrative: General: Patient lying in bed rest comfortably did not appear to be acute distress Head: Atraumatic, normocephalic Eyes: PERRL bilaterally, EOMI bilaterally, no conjunctival injection noted Neck: Soft, supple, trachea midline Cardiovascular: Patient bradycardic with a regular rhythm Respiratory: Clear to auscultation bilaterally Abdomen: Soft, nondistended, tender to palpation Extremities: +4/5 strength of the bilateral upper and lower extremities, radial pulses +2/4 in bilateral extremities, no pedal edema on exam Neurological: Patient follow commands knew that he was at [facility] Skin: Warm, dry, intact no rashes or lesions noted Const Vital Signs: 08/24/24 03:53 08/24/24 03:55 08/24/24 04:25 Temperature 97.8 F Temperature Source Oral Pulse Rate 62 Respiratory Rate 18 Respiratory Effort Normal Non-Labored Respiratory Pattern Normal Blood Pressure 133/77 H Blood Pressure Mean 95 Pulse Ox 99 94 Oxygen Delivery Method Room Air Room Air 08/24/24 05:52 08/24/24 07:07 Temperature Temperature Source Pulse Rate 44 L 41 L Respiratory Rate 16 14 Respiratory Effort Respiratory Pattern Blood Pressure 105/54 L 107/72 Blood Pressure Mean 71 83 Pulse Ox 96 99 Oxygen Delivery Method Room Air MDM MDM MDM Narrative Medical decision making narrative: Patient is a 83-year-old male who presented to the emergency department the chief complaint of generalized fatigue and overall not feeling well. On the differential diagnose includes but not limited to cardiac arrhythmia, electrolyte abnormality, hypothyroidism. Once workup is obtained reviewed he will be reevaluated. Patient CBC reviewed showed no evidence leukocytosis white blood count normal at10.3, hemoglobin 13.2, platelet count was 138. Patient sodium was 144, potassium normal 3.8, creatinine was 1.42 however he has underlying chronic kidney disease this is around his baseline, magnesium level was 2.2, troponin was 90 with a delta troponin obtained 90. Patient's EKG reviewed showed atrial flutter with variable block at a rate of 50 bpm. Patient TSH normal 3.28, T4 and T3 were normal at 1.50 and 2.8 respectively. Patient's chest x-ray reviewedby myself and by radiology showed no acute cardiopulmonary processes. Discussed case with on-call chocolatier Dr. Marin and since the patient is feeling extremely weak fatigued and overall not well with these findings and we do not have electrophysiology to place a pacemaker he recommends transfer. Patient had previous stents done at [facility] will reach out to them for transfer. Discussed the case with chocolatier Dr. Newman who states that they will acceptthe patient for transfer. Transfer center said that the accepting physician wasDr. Rivas. Patient notified as well as significant other bedside they are agreeable with plan all question concerns answered. Lab Data Labs: Laboratory Results - last 24 hr 08/24/24 08/24/24 04:13 06:11 WBC 10.3 RBC 4.08 L Hgb 13.2 Hct 39.9 L MCV 97.8 H MCH 32.4 H MCHC 33.1 RDW Std Deviation 51.7 H RDW Coeff of Maura 14.3 Plt Count 138 L MPV 10.9 Immature Gran % (Auto) 0.400 Neut % (Auto) 51.8 Lymph % (Auto) 35.7 Cherry % (Auto) 10.2 H Eos % (Auto) 1.5 Baso % (Auto) 0.4 Absolute Neuts (auto) 5.3 Absolute Lymphs (auto) 3.67 Nucleated RBC % 0 Sodium 144 Potassium 3.8 Chloride 106 Carbon Dioxide 22.9 Anion Gap 15 BUN 28 H Creatinine 1.42 H Estim Creat Clear Calc 47.01 L Est GFR (MDRD) Non-Af 49 L BUN/Creatinine Ratio 19.6 Glucose 138 H Calcium 9.4 Magnesium 2.2 Troponin T High Sens 90 H* Troponin T Hi Sens 2 Hr 90 H* TSH 3.280 Free T4 1.50 H Free T3 pg/dL 2.8 Radiography Diagnostic Testing: Clinical Impression(s) from Imaging Studies Chest X-Ray 08/24/24 04:30 IMPRESSION: No evidence of acute cardiopulmonary disease. Note of an age indeterminate [id number] vertebral body height loss, compression deformity upper lumbar spine what may be L1 or L2 on the lateral view, clinically correlate. Reading Location: [facility] Discharge Plan Triage Chief Complaint: General Illness ED Provider: Juancho Valle Dx/Rx/DC Orders Clinical Impression: Generalized weakness, Fatigue, Atrial flutter, Bradycardia, AV heart block Prescriptions: No Action omega-3 fatty acids [Fish Oil Concentrate] 1,000 mg capsule 1,000 mg PO DAILY cinnamon bark [Cinnamon] 500 mg capsule 500 mg PO DAILY levothyroxine 25 mcg tablet 25 mcg PO DAILY losartan 100 mg tablet 100 mg PO DAILY Qty: 90 3RF nitroglycerin 0.4 mg tablet, sublingual 0.4 mg SUBLINGUAL Q5-15M PRN (Reason: chest pain) Qty: 25 3RF cholecalciferol (vitamin D3) 50 mcg (2,000 unit) capsule 50 mcg PO DAILY furosemide 40 mg tablet 40 mg PO DAILY Qty: 90 3RF famotidine 20 mg tablet 20 mg PO BID Qty: 60 5RF atenolol 50 mg tablet 50 mg PO QDAY Qty: 90 3RF Primary Care Provider: Shanon Caal NP Referrals: Shanon Caal NP, LITHOGRAPH OPERATOR-C [Primary Care Provider] - Print Language: Lao Disposition Disposition: DC/Tx to Another Type of HCF What to do if you have Problems For any increased pain, shortness of breath, bleeding, nausea or vomiting, chestpain, or any unexpected problems, contact your Primary Care Provider. Call [facility] ([phone]) or report to the closest Emergency Room. Call 911 if necessary. 08/24/24820 <Electronically signed by Juancho Valle DO> Cosigner Signature (if applicable): CC: RUSS Caal ~ Signed [facility] Work Phone: 1(288) 569-595106-01-2025 Discharge summary [facility] Medical Records Department [address] [place] [address] Emergency Department Summary 08/24/24 MR#: [id number] Acct: [id number] Name: SOULEYMANE JOYCE Rep #:[id number] : 1940 83 From: Juancho Valle DO PCP: RUSS Hernandez Sta tus:REG ER Location: ED HPI History of Present Illness Chief Complaint: General Illness Narrative Narrative: Patient is a 83-year-old male past medical history of paroxysmal atrial fibrillation, hypothyroidism, BPH, hyperlipidemia who presented to the emerged part with a chief complaint of generalized not feeling well overall. Patient states that he has been feeling lousy for the last several days and notes that he followed up with his primary care physician last week and noted that they could not find any acute issues to correlate with his symptoms. He states that he also recently followed up with his chocolatier Dr. Morgan who took him off his statin, Plavix, niacin and he states that he does not agree with this. Patient also noted that his atenolol was cut in half he was on 50 mg twice dailyandhe was told to take it once a day in the morning. [facility] Medical History Bilateral leg ulcer Dependent edema Lymphedema Leg edema, right Leg edema, left Leg swelling Obstructive sleep apnea History of upper gastrointestinal hemorrhage History of myocardial infarction Obesity (BMI 30-39.9) Paroxysmal atrial fibrillation COVID-19 virus detected (03/21/21) Obstructive sleep apnea Obesity BPH (benign prostatic hyperplasia) Essential (primary) hypertension Hyperlipidemia 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 GERD (gastroesophageal reflux disease) Syncope and collapse Cardiac arrest (11/2015) Home Medications ?Medication ?Instructions ?Recorded ?Last Taken ?Type omega-3 fatty acids 1,000 mg 1,000 mg PO DAILY 1 Unknown History capsule (Fish Oil Concentrate) cinnamon bark 500 mg capsule 500 mg PO DAILY 12/08/21 Unknown History (Cinnamon) levothyroxine 25 mcg tablet 25 mcg PO DAILY 02/09/23 U nknown History losartan 100 mg tablet 100 mg PO DAILY #90 tabs Unknown Rx nitroglycerin 0.4 mg sublingual 0.4 mg sublingual Q5-1 5M PRN chest 02/19/23 Unknown Rx tablet pain #25 tabs cholecalciferol (vitamin D3) 50 50 mcg PO DAILY Unknown History mcg (2,000 unit) capsule furosemide 40 mg tablet 40 mg PO DAILY #90 tabs 03/26 06/17 Unknown Rx famotidine 20 mg tablet 20 mg PO BID #60 tabs Unknown Rx atenolol 50 mg tablet 50 mg PO QDAY #90 tabs 08/07 Unknown Rx Allergy/AdvReac Type Severity Reaction Status Date / Time No Known Allergies Allergy Unverified 08/07/24 14:34 Family History Father CAD (coronary artery disease) Heart disease Hypertension Myocardial infarction Brother CAD (coronary artery disease) Heart disease Hypertension Myocardial infarction Mother CAD (coronary artery disease) Heart disease Hypertension Myocardial infarction Other Diabetes Surgical History History of total right hip replacement History of coronary artery stent placement (12/07/15) History of right hip replacement (09/2013) History of hemorrhoidectomy (1972) Social History household members: spouse Smoking Status: Former smoker how long ago did patient quit smoking: Quit in his 30s, smoked since teen (~ 15- 20 years), < 1 ppd day. alcohol intake: former substance use type: does not use caffeine: Yes Type: tea Number of servings: 2 ROS ROS ED ROS Narrative Constitutional: Denies lightness, dizziness, fevers, chills Eyes: Denies change in vision double vision blurry vision Cardiovascular: Denies chest pain or palpitations Respiratory: Denies coughing wheezing shortness of breath Abdomen: Denies abdominal pain nausea vomit diarrhea : Denies urinary symptoms Neurological: Denies numbness, wheeze, tingling Musculoskeletal: Denies back pain Skin: Denies rashes or lesions EXAM Physical Exam Narrative Exam Narrative: General: Patient lying in bed rest comfortably did not appear to be acute distress Head: Atraumatic, normocephalic Eyes: PERRL bilaterally, EOMI bilaterally, no conjunctival injection noted Neck: Soft, supple, trachea midline Cardiovascular: Patient bradycardic with a regular rhythm Respiratory: Clear to auscultation bilaterally Abdomen: Soft, nondistended, tender to palpation Extremities: +4/5 strength of the bilateral upper and lower extremities, radial pulses +2/4 in bilateral extremities, no pedal edema on exam Neurological: Patient follow commands knew that he was at [facility] Skin: Warm, dry, intact no rashes or lesions noted Const Vital Signs: 08/24/24 03:53 08/24/24 03:55 08/24/24 04:25 Temperature 97.8 F Temperature Source Oral Pulse Rate 62 Respiratory Rate 18 Respiratory Effort Normal Non-Labored Respiratory Pattern Normal Blood Pressure 133/77 H Blood Pressure Mean 95 Pulse Ox 99 94 Oxygen Delivery Method Room Air Room Air 08/24/24 05:52 08/24/24 07:07 Temperature Temperature Source Pulse Rate 44 L 41 L Respiratory Rate 16 14 Respiratory Effort Respiratory Pattern Blood Pressure 105/54 L 107/72 Blood Pressure Mean 71 83 Pulse Ox 96 99 Oxygen Delivery Method Room Air MDM MDM MDM Narrative Medical decision making narrative: Patient is a 83-year-old male who presented to the emergency department the chief complaint of generalized fatigue and overall not feeling well. On the differential diagnose includes but not limited to cardiac arrhythmia, electrolyte abnormality, hypothyroidism. Once workup is obtained reviewed he w ill be reevaluated. Patient CBC reviewed showed no evidence leukocytosis white blood count normal at10.3, hemoglobin 13.2, platelet count was 138. Patient sodium was 144, potassium normal 3.8, creatinine was 1.42 however he has underlying chronic kidney disease this is around his baseline, magnesium level was 2.2, troponin was 90 with a delta troponin obtained 90. Patient's EKG reviewed showed atrial flutter with variable block at a rate of 50 bpm. Patient TSH normal 3.28, T4 and T3 were normal at 1.50 and 2.8 respectively. Patient's chest x-ray reviewedby myself and by radiology showed no acute cardiopulmonary processes. Discussed case with on-call chocolatier Dr. Marin and since the patient is feeling extremely weak fatigued and overall not well with these findings and we do not have electrophysiology to place a pacemaker he recommends transfer. Patient had previous stents done at [facility] will reach out to them for transfer. Discussed the case with chocolatier Dr. Newman who states that they will acceptthe patient for transfer. Transfer center said that the accepting physician wasDr. Rivas. Patient notified as well assignificant other bedside they are agreeable with plan all question concerns answered. Lab Data Labs: Laboratory Results - last 24 hr 08/24/24 08/24/24 04:13 06:11 WBC 10.3 RBC 4.08 L Hgb 13.2 Hct 39.9 L MCV 97.8 H MCH 32.4 H MCHC 33.1 RDW Std Deviation 51.7 H RDW Coeff of Maura 14.3 Plt Count 138 L MPV 10.9 Immature Gran % (Auto) 0.400 Neut % (Auto) 51.8 Lymph % (Auto) 35.7 Cherry % (Auto) 10.2 H Eos % (Auto) 1.5 Baso % (Auto) 0.4 Absolute Neuts (auto) 5.3 Absolute Lymphs (auto) 3.67 Nucleated RBC % 0 Sodium 144 Potassium 3.8 Chloride 106 Carbon Dioxide 22.9 Anion Gap 15 BUN 28 H Creatinine 1.42 H Estim Creat Clear Calc 47.01 L Est GFR (MDRD) Non-Af 49 L BUN/Creatinine Ratio 19.6 Glucose 138 H Calcium 9.4 Magnesium 2.2 Troponin T High Sens 90 H* Troponin T Hi Sens 2 Hr 90 H* TSH 3.280 Free T4 1.50 H Free T3 pg/dL 2.8 Radiography Diagnostic Testing: Clinical Impression(s) from Imaging Studies Chest X-Ray 08/24/24 04:30 IMPRESSION: No evidence of acute cardiopulmonary disease. Note of an age indeterminate [id number] vertebral body height loss, compression deformity upper lumbar spine what may be L1 or L2 on the lateral view, clinically correlate. Reading Location: [facility] Discharge Plan Triage Chief Complaint: General Illness ED Provider: Juancho Valle Dx/Rx/DC Orders Clinical Impression: Generalized weakness, Fatigue, Atrial flutter, Bradycardia, AV heart block Prescriptions: No Action omega-3 fatty acids [Fish Oil Concentrate] 1,000 mg capsule 1,000 mg PO DAILY cinnamon bark [Cinnamon] 500 mg capsule 500 mg PO DAILY levothyroxine 25 mcg tablet 25 mcg PO DAILY losartan 100 mg tablet 100 mg PO DAILY Qty: 90 3RF nitroglycerin 0.4 mg tablet, sublingual 0.4 mg SUBLINGUAL Q5-15M PRN (Reason: chest pain) Qty: 25 3RF cholecalciferol (vitamin D3) 50 mcg (2,000 unit) capsule 50 mcg PO DAILY furosemide 40 mg tablet 40 mg PO DAILY Qty: 90 3RF famotidine 20 mg tablet 20 mg PO BID Qty: 60 5RF atenolol 50 mg tablet 50 mg PO QDAY Qty: 90 3RF Primary Care Provider: Shanon Caal NP Referrals: Shanon Caal LITHOGRAPH OPERATOR, LITHOGRAPH OPERATOR-C [Primary Care Provider] - Print Language: Lao Disposition Disposition: DC/Tx to Another Type of HCF What to do if you have Problems For any increased pain, shortness of breath, bleeding, nausea or vomiting, chestpain, or any unexpected problems, contact your Primary Care Provider. Call [facility] ([phone]) or report tothe closest Emergency Room. Call 911 if necessary. 08/24/24 0821 Cosigner Signature (if applicable): CC: RUSS Caal ~ Signed [facility]06-01-2025 Radiology Diagnostic study note [facility] Imaging Services [address] [place], [place] [address] Chest PA and Lateral MR#: [id number] Acct: [id number] Name: SOULEYMANE JOYCE Rep #: [id number] : 1940 M 83 From: Can [place] MD PCP: RUSS Hernandez Status: PRE ER Study:Chest PA and Lateral Date of Exam: 08/24/24 Exam# [id number] Ordering Dr: Cristobal Valle DO PROCEDURE: CHEST PA AND LATERAL 08/24/2024 REASON FOR EXAM: WEAK TECHNIQUE: Frontal and lateral views of the chest. 2 frontals and 2 lateral images, 4 total images COMPARISON: 04/29/2022 FINDINGS: The lungs appear clear. No pleural effusion. The cardiac and mediastinal contours appear unchanged.Ectatic thoracic aorta again noted. Bilateral AC joint degenerative changes again seen. Note of an age indeterminate [id number] vertebral body height loss, compression deformity upper lumbar spine what may be L1 or L2 on the lateral view. RAD/Chest PA and Lateral IMPRESSION: No evidence of acute cardiopulmonary disease. Note of an age indeterminate [id number] vertebral body height loss, compression deformity upper lumbar spine what may be L1 or L2 on the lateral view, clinically correlate. Reading Location: [facility] CC: RUSS Caal; Dr. Juancho Valle DO ~ Commercial Driver: Signed [facility]05-15-2025 Evaluation note* Diagnosis Onset Date Resolution Status Admit Date Atherosclerosis of viejas coronary artery of viejas heart without angina chronic August 07, 2024 2 :27pm Edema chronic August 07, 2024 2:27pm Essential (primary) hypertension chr onic August 07, 2024 2:27pm Hyperlipidemia chronic August 07, 2024 2:27pm Paroxysmal atrial fibrillation chron ic August 07, 2024 2:27pm [facility] Work Phone: 1(948) 812-673404-17-2024 Progress note Author Last [facility] July 11, 2023 2:30pm Note Date/Time July 11, 2023 2:3 1pm [facility] [address] [place] [address] Progress Note - Wound Care 07/11/23 1414 MR#: [id number] Acct: [id number] Name: SOULEYMANE JOYCE Rep #:[id number] : 1940 82 From: Last WARD PCP: Shanon Caal, LITHOGRAPH OPERATORYari Sta tus:REG RCR Location: History of Present Illness Date of Service: 07/11/23 Chief Complaint: Bilateral lower extremity ulcerations, swelling, edema, and lymphedema History of Wound: This is an 82-year-old male who presents with a longstanding history of swelling, edema, and lymphedema in his lower extremities. The patient has recently developed ulcerations in both lower extremities. These ulcerations began as blisters. They were associated with severe swelling, edema, and lymphedema. It appears as though the patient's presenting symptoms and manifestations are related to his daily habits. The patient sleeps in a chair. He does so due to sleep apnea. He is not active. He spends a large part of each day sitting. He requires a cane for ambulation. He denies a history of thrombophlebitis. His relates that the swelling and edema in his lower extremities was minimized after a week in the intensive care unit for treatment of other problems. This was likely due to the patient's confinement to bed, with his legs elevated to heart level. Patient had blood work performedon May 17, 2023, with results as follows: White blood count 10.6, hemoglobin 11.8, hematocrit 37.4, platelets 169,000, iron 62, TIBC 316, [id number]. The patient has a history of pre-existing medical problems and prior procedures, which are listed below. Subjective Subjective Mr. Joyce is a 82-year-old male presenting for follow-up and evaluation of full-thickness ulceration to the left lower extremity. Patient has been compliant with wearing his multilayer compression bandages. He states that he has noticed great improvement with his bilateral leg swelling. He has does not have his compression stockings and will need a prescription. Denies trauma. Denies constitutional symptoms. No other pedal complaints at this time. Objective Data Objective Data Vital Signs: Vital Signs Temp Pulse Resp BP O2 Del Method 98.3 F 69 18 136/76 H Room Air 07/11/23 13:41 07/11/23 13:41 07/11/23 13:41 07/11/23 13:41 07/11/23 13:41 Oxygen Delivery Method Room Air Weight: 109.769 kg Body Mass Index (BMI) 39.0 Physical Exam Narrative Vascular: DP and PT pulse are palpable bilateral. CFT is brisk. +1 pitting edema appreciated bilateral extremity. Evidence of hemosiderin deposits appreciated bilateral lower extremity. Skin temperature great is warm to warm from proximal ankle to distal digit bilateral. No focal increase is appreciated. Neurological: Light touch and epicritic station is intact. Patient responds to painful stimuli. Dermatological: Full-thickness ulceration to bilateral lower extremity are now healed. +1 pitting edema appreciated bilateral extremity. Evidence of hemosiderin deposits to bilateral extremity. Musculoskeletal: No strength 5 and 5 bilaterally. No pain to palpation to all healed bilateral full-thickness ulceration.. No pain with calf compression. Debridement Note Debridement Note Post-Debridement Measurements and Additional Note: Post-Debridement Measurements/Treatment - Nurse 1 - General Ulcer Assessment Start: 06/27/23 13:38 Freq: Status: Active Protocol: YEYO Activity Type Activity Date Activity User E-sign Co-sign Detail Recorded Client Recorded Date Recorded By Document 06/27/23 13:38 KW Desktop 06/27/23 13:52 KW Document 07/03/23 15:24 RB Desktop 07/03/23 15:27 RB Document 07/11/23 13:41 Desktop 07/11/23 13:55 06/27/23 07/03/23 07/11/23 13:38 15:24 13:41 - Today's Visit Information Type of service Follow-up Visit Follow-up Visit Follow-up Visit (Physician/SALVAGE DIVER (Physician/SALVAGE DIVER (Physician/SALVAGE DIVER ) ) ) Arrival Mode Ambulatory,Cane Ambulatory,Cane Ambulatory,Cane Transfer Assistance None None Accompanied by Patient Identification Verified (Name & Yes Yes Yes ) Patient Requires Transmission-Based No Precautions Height and Weight Body Mass Index (BMI) 39.0 39.0 39.0 BMI Classification Obese Obese Obese Vital Signs Temperature (97.8 F-99.1 F) 96.7 F L 97.9 F 98.3 F Temperature Source Temporal Temporal Temporal Pulse Rate (60-100) 107 H 65 69 Pulse Location Monitor Monitor Monitor Respiratory Rate (12-18) 18 18 18 Respiratory rate source Observation Observation Observation Oxygen Delivery Method Room Air Room Air Blood Pressure (90/60-120/80) 146/99 H 143/62 H 136/76 H Blood Pressure Mean (mm Hg) 114 89 96 Source Monitor Monitor Monitor Position Semi-Fowlers Semi-Fowlers Sitting Blood Pressure Location Left Arm Left Arm Left Arm History Since Last Visit- (Skip if this is Patient's initial visit) Have you changed medications since your No No No last visit? Any new allergies or adverse reactions No No No Had a fall/change in ADL's that may No No No increase risk of falls Signs or symptoms of abuse and/or No No No neglect since last visit Have you been in the hospital since your No No last visit? Has dressing in place as prescribed Yes Yes Has compression in place as prescribed Yes Yes Has offloadiing in place as prescribed N/A No N/A Experienced any changes in pain level or No No No management Left Footwear Regular Shoe Regular Shoe Right Footwear Regular Shoe Regular Shoe Pain Scale: 0-10 Numeric Is Patient Pain Free? Yes Yes Yes WC - Nurse 1 - General Ulcer Measurement Start: 06/27/23 13:38 Freq: Status: Active Protocol: Activity Type Activity Date Activity User E-sign Co-sign Detail Recorded Client Recorded Date Recorded By Document 06/27/23 13:38 KW Desktop 06/27/23 13:52 KW Document 07/03/23 15:24 RB Desktop 07/03/23 15:27 RB Document 07/11/23 13:41 GM Desktop 07/11/23 13:55 06/27/23 07/03/23 07/11/23 13:38 15:24 13:41 Wound Center Nurse 1 #1 LLE Medial -Current Size (cm) - Length 0.1 -Current Size (cm) - Width 0.1 -Current Size (cm) - Depth 0.1 -Total Square Cm 0.01 -Photo Taken No -Exudate Amt Small -Exudate Type Serosanguineous -Wound Margin Distinct, Outline Attached -Granulation Amt Large (67-100%) -Granulation Quality Red -Texture (Julia-wound Skin Appearance) Assessed -Moisture (Julia-wound Skin Appearance) Assessed -Color (Julia-wound Skin Appearance) Assessed -Temperature (Julia-wound Skin No Abnormality Appearance) (Pt Warm) -Ulcer Cleansing Soap and Water -Foul Odor after Cleansing No -Anesthetic Used 4% Lidocaine Solution Lower Limb Edema Present Yes Right Calf (cm) 43.3 42.5 42 Right Ankle (cm) 29 27 27.5 Left Calf (cm) 42.5 41 40.5 Left Ankle (cm) 30.4 28.5 28.0 WC - Nurse 2 - General Ulcer CM Notes Start: 06/27/23 13:38 Freq: Status: Active Protocol: Activity Type Activity Date Activity User E-sign Co-sign Detail Recorded Client Recorded Date Recorded By Document 06/27/23 14:19 Laptop 06/27/23 14:20 Edit Result 06/27/23 14:19 RADSONE (1) Laptop 06/27/23 14:21 JF Document 07/11/23 14:13 JF Laptop 07/11/23 14:13 (1) #2 LLE Posterior - Time => 14:21 - Correct Patient => Yes - Correct Side, Site, Position => Yes - Correct Procedure => Yes - Procedure Performed => Yes - Type of Procedure => Debridement - Clinical Debridement => Subcutaneous - Tissue Removed => Subcutaneous - Post Debridement (cm) - Length => 0.8 - Post Debridement (cm) - Width => 1.0 - Post Debridement (cm) - Depth => 0.1 - Total Square (Post) (cm) => 0.80 - Area of Debridement (cm) - Length => 0.8 - Area of Debridement (cm) - Width => 1.0 - Total Square (Area) (cm) => 0.80 - Tunneling => No - Undermining/Tunneling => No - Circular Undermining => No - Wound/Ulcer Outcome => Not Healed - Ulcer Cleansing => Rinsed/Irrigated => with Saline - Foul Odor after Cleansing => No - Bioengineered Tissue => No - Bleeding Controlled with => Pressure - Treatment Response => Procedure => Tolerated Well - Offloading => No - Debridement - Subq, 1st 20sq cm => Yes 06/27/23 07/11/23 14:19 14:13 Wound Center Nurse 2 #2 LLE Posterior -Time 14:21 -Correct Patient Yes -Correct Side, Site, Position Yes -Correct Procedure Yes -Procedure Performed Yes -Type of Procedure Debridement -Clinical Debridement Subcutaneous -Tissue Removed Subcutaneous -Post Debridement (cm) - Length 0.8 -Post Debridement (cm) - Width 1.0 -Post Debridement (cm) - Depth 0.1 -Total Square (Post) (cm) 0.80 -Area of Debridement (cm) - Length 0.8 -Area of Debridement (cm) - Width 1.0 -Total Square (Area) (cm) 0.80 -Tunneling No -Undermining/Tunneling No -Circular Undermining No -Wound/Ulcer Outcome Not Healed -Ulcer Cleansing Rinsed/ Irrigated with Saline -Foul Odor after Cleansing No -Bioengineered Tissue No -Bleeding Controlled with Pressure -Treatment Response Procedure Tolerated Well -Offloading No -Debridement - Subq, 1st 20sq cm Yes #1 LLE Medial -Correct Patient No -Correct Side, Site, Position No -Correct Procedure No -Procedure Performed No -Post Debridement (cm) - Length 0 -Post Debridement (cm) - Width 0 -Post Debridement (cm) - Depth 0 -Total Square (Post) (cm) 0 -Area of Debridement (cm) - Length 0 -Area of Debridement (cm) - Width 0 -Total Square (Area) (cm) 0 -Wound/Ulcer Outcome Healed- Epithelialized Pain Scale: 0-10 Numeric Is Patient Pain Free? Yes Yes WC - Nurse 3 - General Ulcer D/C NN Start: 06/27/23 13:38 Freq: Status: Active Protocol: Activity Type Activity Date Activity User E-sign Co-sign Detail Recorded Client Recorded Date Recorded By Document 06/27/23 14:46 RB Desktop 06/27/23 14:47 RB Document 07/03/23 15:24 RB Desktop 07/03/23 15:27 RB 06/27/23 07/03/23 14:46 15:24 Wound Care Center Nurse 3 #2 LLE Posterior -Ulcer Cleansing Rinsed/ Wound Cleanser Irrigated with Saline -Other Dressing xeroform xeroform bilat -Multi-Layered Wrap Application Multi-Layer Multi-Layer Comp - Bilat ($ Comp - Bilat ($ ) ) Treatment Response Procedure Procedure Tolerated Well Tolerated Well Vital Signs Temperature (97.8 F-99.1 F) 97.9 F Temperature Source Temporal Pulse Rate (60-100) 65 Pulse Location Monitor Respiratory Rate (12-18) 18 Respiratory rate source Observation Blood Pressure (90/60-120/80) 143/62 H Blood Pressure Mean (mm Hg) 89 Source Monitor Position Semi-Fowlers Blood Pressure Location Left Arm Pain Scale: 0-10 Numeric Is Patient Pain Free? Yes Yes WC - Visit Discharge Discharge Condition Stable Stable Ambulatory Status Ambulatory Ambulatory,Cane Transportation Private Auto Private Auto Medication Reconcilliation completed & No No provided to patient/care provider Clinical Summary of Care Provided Yes Yes Assessment/Plan Assessment/Plan (1) Non-pressure chronic ulcer of other part of left lower leg with fat layer exposed: CODE(S): L97.822 - Non-pressure chronic ulcer of other part of left lower leg with fat layer exposed PLAN: Patient was examined and evaluated. All findings were discussed with the patient. All questions were answered to the patient's satisfaction. Patient's bilateral full-thickness ulcerations are now healed. The patient has been grateful for his care. The patient was placed in bilateral multilayer compression 3M dressings. Patient will keep these on for approximately 1 week. He will follow- up for a nursing visit at week [address] Camilo at week 2. Patient was given a prescription for compression stockings, 20 to 30 mmHg to be sized and fitted at [facility]. Patient's toenails 1 through 5 bilateral were debrided down to and including normal limits with a sterile double-action nail nipper without incident. Patient expressed relief after debridement. Follow-up at the wound care center with Dr. Camilo in 1 week. (2) Other specified peripheral vascular diseases: CODE(S): I73.89 - Other specified peripheral vascular diseases 07/11/23 1430 <Electronically signed by Last Camilo DPM> Cosigner Signature (if applicable): CC: ~ Signed [facility] Work Phone: 1(284) 774-706704-03-2024 Progress note Author Lsat [facility] June 27, 2023 2:50pm Note Date/Time June 27, 2023 2:50 pm [facility] [address] [place] [address] Progress Note - Wound Care 06/27/23 1448 MR#: [id number] Acct: [id number] Name: SOULEYMANE JOYCE Rep #:[id number] : 1940 82 From: Last Camilo D PM PCP: Shanon Caal, LITHOGRAPH OPERATORYari Sta tus:REG RCR Location: History of Present Illness Date of Service: 06/27/23 Chief Complaint: Bilateral lower extremity ulcerations, swelling, edema, and lymphedema History of Wound: This is an 82-year-old male who presents with a longstanding history of swelling, edema, and lymphedema in his lower extremities. The patient has recently developed ulcerations in both lower extremities. These ulcerations began as blisters. They were associated with severe swelling, edema, and lymphedema. It appears as though the patient's presenting symptoms and manifestations are related to his daily habits. The patient sleeps in a chair. He does so due to sleep apnea. He is not active. He spends a large part of each day sitting. He requires a cane for ambulation. He denies a history of thrombophlebitis. His relates that the swelling and edema in his lower extremities was minimized after a week in the intensive care unit for treatment of other problems. This was likely due to the patient's confinement to bed, with his legs elevated to heart level. Patient had blood work performedon May 17, 2023, with results as follows: White blood count 10.6, hemoglobin 11.8, hematocrit 37.4, platelets 169,000, iron 62, TIBC 316, [id number]. The patient has a history of pre-existing medical problems and prior procedures, which are listed below. Subjective Subjective Mr. Joyce is a 82-year-old male presenting for follow-up and evaluation of bilateral lower extremity ulcerations and swelling at the wound care center [facility]. Patient was seen by an outside provider. Patient is following up with Dr. Camilo for continued evaluation and treatment to the patient's bilateral lower extremity ulcerations and swelling. Patient is not a diabetic. Patient admits to improvement when being evaluated today. Patient does admit to stopping his Lasix because of improvement to his bilateral lower extremity. This was not authorized by a physician but by the patient. Denies trauma. Denies constitutional symptoms. Other pedal complaints at this time. Objective Data Objective Data Vital Signs: Vital Signs Temp Pulse Resp BP O2 Del Method 96.7 F L 107 H 18 146/99 H Room Air 06/27/23 13:38 06/27/23 13:38 06/27/23 13:38 06/27/23 13:38 06/27/23 13:38 Oxygen Delivery Method Room Air Weight: 109.769 kg Body Mass Index (BMI) 39.0 Physical Exam Narrative Vascular: DP and PT pulse are palpable. CFT is brisk. +1 pitting edema appreciated bilateral lower extremity. Evidence of hemosiderin deposits are appreciated bilateral lower extremity. Skin temperature great is warm to warm from proximal ankle to distal digits bilateral. No increase in focal warmth is appreciated. Neurological: Light touch and epicritic station is intact. Patient responds to painful stimuli. Dermatological: Full-thickness ulcerations appreciated to the bilateral lower extremity. The right lower extremity ulceration is now healed. Left lower extremity posterior ulceration measures 0.8 x 1.0 x 0.1 cm. Ulceration wound base is 100% granular nature. Evidence of serous drainage. +1 pitting edema isappreciated bilateral lower extremity. Evidence of hemosiderin deposits are appreciated. Excisional debridement down to and including subcutaneous tissue of the left lower extremity posterior full-thickness ulceration with a 5 mm dermal curette. Predebridement measurement is 0.7 x 0.9 x 0.1 cm. Postdebridement measurement is 0.8 x 1.0 x 0.1 cm. Musculoskeletal: No strength 5 and 5 bilaterally. Mild pain on palpation to bilateral full-thickness ulcerations. No pain with calf compression. Debridement Note Debridement Note Debridement Free Text: Excisional debridement down to and including subcutaneoustissue of the left lower extremity posterior full-thickness ulceration with a 5 mm dermal curette. Predebridement measurement is 0.7 x 0.9 x 0.1 cm. Postdebridement measurement is 0.8 x 1.0 x 0.1 cm. Post-Debridement Measurements and Additional Note: Post-Debridement Measurements/Treatment WC - Nurse 1 - General Ulcer Assessment Start: 06/27/23 13:38 Freq: Status: Active Protocol: RAMÓN.LOWEXT Activity Type Activity Date Activity User E-sign Co-sign Detail Recorded Client Recorded Date Recorded By Document 06/27/23 13:38 Biomass CHPktop 06/27/23 13:52 Opternative 06/27/23 13:38 WC - Today's Visit Information Type of service Follow-up Visit (Physician/SALVAGE DIVER ) Arrival Mode Ambulatory,Cane Accompanied by Patient Identification Verified (Name & Yes ) Height and Weight Body Mass Index (BMI) 39.0 BMI Classification Obese Vital Signs Temperature (97.8 F-99.1 F) 96.7 F L Temperature Source Temporal Pulse Rate (60-100) 107 H Pulse Location Monitor Respiratory Rate (12-18) 18 Respiratory rate source Observation Oxygen Delivery Method Room Air Blood Pressure (90/60-120/80) 146/99 H Blood Pressure Mean (mm Hg) 114 Source Monitor Position Semi-Fowlers Blood Pressure Location Left Arm History Since Last Visit- (Skip if this is Patient's initial visit) Have you changed medications since your No last visit? Any new allergies or adverse reactions No Had a fall/change in ADL's that may No increase risk of falls Signs or symptoms of abuse and/or No neglect since last visit Have you been in the hospital since your No last visit? Has dressing in place as prescribed Yes Has compression in place as prescribed Yes Has offloadiing in place as prescribed N/A Experienced any changes in pain level or No management Left Footwear Regular Shoe Right Footwear Regular Shoe Pain Scale: 0-10 Numeric Is Patient Pain Free? Yes - Nurse 1 - General Ulcer Measurement Start: 06/27/23 13:38 Freq: Status: Active Protocol: Activity Type Activity Date Activity User E-sign Co-sign Detail Recorded Client Recorded Date Recorded By Document 06/27/23 13:38 IAMINTOITop 06/27/23 13:52 Opternative 06/27/23 13:38 Wound Center Nurse 1 #1 LLE Medial -Current Size (cm) - Length 0.1 -Current Size (cm) - Width 0.1 -Current Size (cm) - Depth 0.1 -Total Square Cm 0.01 -Photo Taken No -Exudate Amt Small -Exudate Type Serosanguineous -Wound Margin Distinct, Outline Attached -Granulation Amt Large (67-100%) -Granulation Quality Red -Texture (Julia-wound Skin Appearance) Assessed -Moisture (Julia-wound Skin Appearance) Assessed -Color (Julia-wound Skin Appearance) Assessed -Temperature (Julia-wound Skin No Abnormality Appearance) (Pt Warm) -Ulcer Cleansing Soap and Water -Foul Odor after Cleansing No -Anesthetic Used 4% Lidocaine Solution Right Calf (cm) 43.3 Right Ankle (cm) 29 Left Calf (cm) 42.5 Left Ankle (cm) 30.4 WC - Nurse 2 - General Ulcer CM Notes Start: 06/27/23 13:38 Freq: Status: Active Protocol: Activity Type Activity Date Activity User E-sign Co-sign Detail Recorded Client Recorded Date Recorded By Document 06/27/23 14:19 RICARDO Laptop 06/27/23 14:20 RICARDO Edit Result 06/27/23 14:19 JF (1) Laptop 06/27/23 14:21 JF (1) #2 LLE Posterior - Time => 14:21 - Correct Patient => Yes - Correct Side, Site, Position => Yes - Correct Procedure => Yes - Procedure Performed => Yes - Type of Procedure => Debridement - Clinical Debridement => Subcutaneous - Tissue Removed => Subcutaneous - Post Debridement (cm) - Length => 0.8 - Post Debridement (cm) - Width => 1.0 - Post Debridement (cm) - Depth => 0.1 - Total Square (Post) (cm) => 0.80 - Area of Debridement (cm) - Length => 0.8 - Area of Debridement (cm) - Width => 1.0 - Total Square (Area) (cm) => 0.80 - Tunneling => No - Undermining/Tunneling => No - Circular Undermining => No - Wound/Ulcer Outcome => Not Healed - Ulcer Cleansing => Rinsed/Irrigated => with Saline - Foul Odor after Cleansing => No - Bioengineered Tissue => No - Bleeding Controlled with => Pressure - Treatment Response => Procedure => Tolerated Well - Offloading => No - Debridement - Subq, 1st 20sq cm => Yes 06/27/23 14:19 Wound Center Nurse 2 #1 LLE Medial -Correct Patient No -Correct Side, Site, Position No -Correct Procedure No -Procedure Performed No -Post Debridement (cm) - Length 0 -Post Debridement (cm) - Width 0 -Post Debridement (cm) - Depth 0 -Total Square (Post) (cm) 0 -Area of Debridement (cm) - Length 0 -Area of Debridement (cm) - Width 0 -Total Square (Area) (cm) 0 -Wound/Ulcer Outcome Healed- Epithelialized #2 LLE Posterior -Time 14:21 -Correct Patient Yes -Correct Side, Site, Position Yes -Correct Procedure Yes -Procedure Performed Yes -Type of Procedure Debridement -Clinical Debridement Subcutaneous -Tissue Removed Subcutaneous -Post Debridement (cm) - Length 0.8 -Post Debridement (cm) - Width 1.0 -Post Debridement (cm) - Depth 0.1 -Total Square (Post) (cm) 0.80 -Area of Debridement (cm) - Length 0.8 -Area of Debridement (cm) - Width 1.0 -Total Square (Area) (cm) 0.80 -Tunneling No -Undermining/Tunneling No -Circular Undermining No -Wound/Ulcer Outcome Not Healed -Ulcer Cleansing Rinsed/ Irrigated with Saline -Foul Odor after Cleansing No -Bioengineered Tissue No -Bleeding Controlled with Pressure -Treatment Response Procedure Tolerated Well -Offloading No -Debridement - Subq, 1st 20sq cm Yes Pain Scale: 0-10 Numeric Is Patient Pain Free? Yes - Nurse 3 - General Ulcer D/C NN Start: 06/27/23 13:38 Freq: Status: Active Protocol: Activity Type Activity Date Activity User E-sign Co-sign Detail Recorded Client Recorded Date Recorded By Document 06/27/23 14:46 Desktop 06/27/23 14:47 06/27/23 14:46 Wound Care Center Nurse 3 #2 LLE Posterior -Ulcer Cleansing Rinsed/ Irrigated with Saline -Other Dressing xeroform bilat -Multi-Layered Wrap Application Multi-Layer Comp - Bilat ($ ) Treatment Response Procedure Tolerated Well Pain Scale: 0-10 Numeric Is Patient Pain Free? Yes WC - Visit Discharge Discharge Condition Stable Ambulatory Status Ambulatory Transportation Private Auto Medication Reconcilliation completed & No provided to patient/care provider Clinical Summary of Care Provided Yes Assessment/Plan Assessment/Plan (1) Non-pressure chronic ulcer of other part of left lower leg with fat layer exposed: CODE(S): L97.822 - Non-pressure chronic ulcer of other part of left lower leg with fat layer exposed PLAN: Patient was examined and evaluated. All findings were discussed with the patient. All questions were answered to the patient's satisfaction. Excisional debridement down to and including subcutaneous tissue of the left lower extremity posterior full-thickness ulceration with a 5 mm dermal curette. Predebridement measurement is 0.7 x 0.9 x 0.1 cm. Postdebridement measurement is 0.8 x 1.0 x 0.1 cm. The left lower extremities were cleaned and patted dry. The patient was placed in bilateral 3M wraps. He was instructed keep them cleandry and intact. The patient will begin to and resume his Lasix. The patient will follow-up in 1 week for nursing visit and will bring his compression stockings for evaluation by nursing staff and then rewrapped with his3M wraps. Follow-up at the wound care center with Dr. Camilo in 2 week. (2) Other specified peripheral vascular diseases: CODE(S): I73.89 - Other specified peripheral vascular diseases 06/27/23 1450 <Electronically signed by Last Camilo DPM> Cosigner Signature (if applicable): CC: ~ Signed [facility] Work Phone: [phone] 935-837103-20-2024 Progress note Author Last Camilo [facility] June 13, 2023 8:36pm Note Date/Time June 13, 2023 8:3 6pm [facility] [address] [place] [address] Progress Note - Wound Care 06/13/232032 MR#: [id number] Acct: [id number] Name: ISIAHSOULEYMANE Max Rep #:[id number] : 1940 82 From: Last WARD PCP: RUSS Hernandez Sta tus:REG RCR Location: History of Present Illness Date of Service: 06/13/23 Chief Complaint: Bilateral lower extremity ulcerations, swelling, edema, and lymphedema History of Wound: This is an 82-year-old male who presents with a longstanding history of swelling, edema, and lymphedema in his lower extremities. The patient has recently developed ulcerations in both lower extremities. These ulcerations began as blisters. They were associated with severe swelling, edema, and lymphedema. It appears as though the patient's presenting symptoms and manifestations are related to his daily habits. The patient sleeps in a chair. He does so due to sleep apnea. He is not active. He spends a large part of each day sitting. He requires a cane for ambulation. He denies a history of thrombophlebitis. His relates that the swelling and edema in his lower extremities was minimized after a week in the intensive care unit for treatment of other problems. This was likely due to the patient's confinement to bed, with his legs elevated to heart level. Patient had blood work performedon May 17, 2023, with results as follows: White blood count 10.6, hemoglobin 11.8, hematocrit 37.4, platelets 169,000, iron 62, TIBC 316, [id number]. The patient has a history of pre-existing medical problems and prior procedures, which are listed below. Subjective Subjective Mr. Joyce is a 82-year-old male presenting for follow-up and evaluation of bilateral lower extremity ulcerations and swelling at the wound care center at [facility]. Patient was seen by an outside provider. Patient is following up with Dr. Camilo for continued evaluation and treatment to the patient's bilateral lower extremity ulcerations and swelling. Patient is not a diabetic. Patient admits to improvement when being evaluated today. Denies trauma. Denies constitutional symptoms. Other pedal complaints at this time. Objective Data Objective Data Vital Signs: Vital Signs Temp Pulse Resp BP O2 Del Method 96.2 F L 78 18 151/60 H Room Air 06/13/23 13:45 06/13/23 13:45 06/13/23 13:45 06/13/23 13:45 06/13/23 13:45 Oxygen Delivery Method Room Air Weight: 109.769 kg Body Mass Index (BMI) 39.0 Physical Exam Narrative Vascular: DP and PT pulse are palpable. CFT is brisk. +1 pitting edema appreciated bilateral lower extremity. Evidence of hemosiderin deposits are appreciated bilateral lower extremity. Skin temperature great is warm to warm from proximal ankle to distal digits bilateral. No increase in focal warmth is appreciated. Neurological: Light touch and epicritic station is intact. Patient responds to painful stimuli. Dermatological: Full-thickness ulcerations appreciated to the bilateral lower extremity. The right lower extremity ulceration is now healed. Left lower extremity ulceration measures 1.3 x 1.0 x 0.1 cm. All ulcerations wound base is100% granular nature. Evidence of serous drainage. +1 pitting edema is appreciated bilateral lower extremity. Evidence of hemosiderin deposits are appreciated. Excisional debridement down to and including subcutaneous tissue of the left lower extremity full-thickness ulceration with a 5 mm dermal curette. Predebridement measurement is 1.0 x 0.8 x 0.1 cm. Postdebridement measurement is 1.3 x 1.0 x 0.1 cm. Musculoskeletal: No strength 5 and 5 bilaterally. Mild pain on palpation to bilateral full-thickness ulcerations. No pain with calf compression. Debridement Note Debridement Note Debridement Free Text: Excisional debridement down to and including subcutaneoustissue of the left lower extremity full-thickness ulceration with a 5 mm dermal curette. Predebridement measurement is 1.0 x 0.8 x 0.1 cm. Postdebridement measurement is 1.3 x 1.0 x 0.1 cm. Post-Debridement Measurements and Additional Note: Post-Debridement Measurements/Treatment - Nurse 1 - General Ulcer Assessment Start: 05/25/23 11:43 Freq: Status: Active Protocol: .LOWSAYT Activity Type Activity Date Activity User E-sign Co-sign Detail Recorded Client Recorded Date Recorded By Document 05/30/23 14:43 KW Desktop 05/30/23 15:04 KW Document 06/01/23 11:21 KW Desktop 06/01/23 11:32 KW Document 06/06/23 15:10 KW Desktop 06/06/23 15:27 KW Document 06/11/23 14:07 DL Desktop 06/11/23 14:13 DL Document 06/13/23 13:45 DL Desktop 06/13/23 13:51 DL 05/30/23 06/01/23 06/06/23 14:43 11:21 15:10 - Today's Visit Information Type of service Follow-up Visit Nurse-only Follow-up Visit (Physician/SALVAGE DIVER Visit (Physician/SALVAGE DIVER ) ) Arrival Mode Ambulatory,Cane Ambulatory,Cane Transfer Assistance Accompanied by Patient Identification Verified (Name & Yes Yes Yes ) Patient Requires Transmission-Based Precautions Safety Precautions Height and Weight Body Mass Index (BMI) 39.0 39.0 39.0 BMI Classification Obese Obese Obese Vital Signs Temperature (97.8 F-99.1 F) 96.3 F L 97.2 F L Temperature Source Temporal Temporal Pulse Rate (60-100) 81 75 73 Pulse Location Monitor Monitor Monitor Respiratory Rate (12-18) 18 18 18 Respiratory rate source Observation Observation Observation Oxygen Delivery Method Room Air Room Air Room Air Blood Pressure (90/60-120/80) 144/64 H 122/53 H 163/71 H Blood Pressure Mean (mm Hg) 90 76 101 Source Monitor Monitor Monitor Position Supine Semi-Fowlers Semi-Fowlers Blood Pressure Location Left Forearm Left Arm Left Arm History Since Last Visit- (Skip if this is Patient's initial visit) Have you changed medications since your No No No last visit? Any new allergies or adverse reactions No No No Had a fall/change in ADL's that may No No No increase risk of falls Signs or symptoms of abuse and/or No No No neglect since last visit Have you been in the hospital since your No No No last visit? Has dressing in place as prescribed Yes Yes Yes Has compression in place as prescribed Yes Yes Yes Has offloadiing in place as prescribed N/A N/A N/A Experienced any changes in pain level or No No No management Left Footwear Regular Shoe Regular Shoe Regular Shoe Right Footwear Regular Shoe Regular Shoe Regular Shoe Pain Scale: 0-10 Numeric Is Patient Pain Free? Yes Yes Yes 06/11/23 06/13/23 14:07 13:45 WC - Today's Visit Information Type of service Nurse-only Follow-up Visit Visit (Physician/SALVAGE DIVER ) Arrival Mode Ambulatory,Cane Ambulatory,Cane Transfer Assistance None Accompanied by Patient Identification Verified (Name & Yes Yes ) Patient Requires Transmission-Based No Precautions Safety Precautions Fall Prevention Height and Weight Body Mass Index (BMI) 39.0 39.0 BMI Classification Obese Obese Vital Signs Temperature (97.8 F-99.1 F) 97.1 F L 96.2 F L Temperature Source Temporal Temporal Pulse Rate (60-100) 75 78 Pulse Location Monitor Monitor Respiratory Rate (12-18) 18 18 Respiratory rate source Observation Observation Oxygen Delivery Method Room Air Blood Pressure (90/60-120/80) 129/63 H 151/60 H Blood Pressure Mean (mm Hg) 85 90 Source Monitor Monitor Position Semi-Fowlers Blood Pressure Location Left Arm History Since Last Visit- (Skip if this is Patient's initial visit) Have you changed medications since your No No last visit? Any new allergies or adverse reactions No No Had a fall/change in ADL's that may No No increase risk of falls Signs or symptoms of abuse and/or No No neglect since last visit Have you been in the hospital since your No No last visit? Has dressing in place as prescribed Yes Yes Has compression in place as prescribed Yes Yes Has offloadiing in place as prescribed N/A N/A Experienced any changes in pain level or No No management Left Footwear Regular Shoe Right Footwear Regular Shoe Pain Scale: 0-10 Numeric Is Patient Pain Free? Yes Yes WC - Nurse 1 - General Ulcer Measurement Start: 05/25/23 11:43 Freq: Status: Active Protocol: Activity Type Activity Date Activity User E-sign Co-sign Detail Recorded Client Recorded Date Recorded By Document 05/30/23 14:43 KW Desktop 05/30/23 15:04 KW Document 06/01/23 11:21 KW Desktop 06/01/23 11:32 KW Document 06/06/23 15:10 KW Desktop 06/06/23 15:27 KW Document 06/11/23 14:07 DL Desktop 06/11/23 14:13 DL Document 06/13/23 13:45 DL Desktop 06/13/23 13:51 DL 05/30/23 06/01/23 06/06/23 14:43 11:21 15:10 Wound Center Nurse 1 #4 RLE Lateral -Current Size (cm) - Length 8.7 -Current Size (cm) - Width 4 -Current Size (cm) - Depth 0.2 -Total Square Cm 34.8 -Exudate Amt Small -Exudate Type Serosanguineous -Wound Margin Distinct, Outline Attached -Granulation Amt Large (67-100%) -Granulation Quality Red -Texture (Julia-wound Skin Appearance) Assessed -Moisture (Julia-wound Skin Appearance) Maceration -Color (Julia-wound Skin Appearance) Assessed, Erythema -Temperature (Julia-wound Skin No Abnormality Appearance) (Pt Warm) -Ulcer Cleansing Soap and Water -Foul Odor after Cleansing No -Anesthetic Used 4% Lidocaine Solution #3 RLE -Current Size (cm) - Length 3 3 -Current Size (cm) - Width 2.7 2 -Current Size (cm) - Depth 0.1 0.1 -Total Square Cm 8.1 6 -Exudate Amt Medium Small -Exudate Type Serosanguineous Serosanguineous -Wound Margin Distinct, Distinct, Outline Outline Attached Attached -Granulation Amt Small (1-33%) Large (67-100%) -Granulation Quality Red Lostant -Necrosis Amt Medium (34-66%) -Necrotic Tissue Type Adherent Slough -Structure Exposed -Texture (Julia-wound Skin Appearance) Assessed Assessed -Moisture (Julia-wound Skin Appearance) Assessed Assessed -Color (Julia-wound Skin Appearance) Assessed Assessed -Temperature (Julia-wound Skin No Abnormality No Abnormality Appearance) (Pt Warm) (Pt Warm) -Tenderness on Palpation (Julia-wound Skin Appearance) -Ulcer Cleansing Soap and Water Soap and Water -Foul Odor after Cleansing No -Anesthetic Used 4% Lidocaine 4% Lidocaine Solution Solution -Wound Comment(s) scabbing #2 LLE Posterior -Current Size (cm) - Length 2.2 -Current Size (cm) - Width 1 -Current Size (cm) - Depth 0.2 -Total Square Cm 2.2 -Exudate Amt Medium -Exudate Type Serosanguineous -Wound Margin Distinct, Outline Attached -Granulation Amt Large (67-100%) -Granulation Quality Lostant -Necrosis Amt Medium (34-66%) -Necrotic Tissue Type Adherent Slough -Texture (Julia-wound Skin Appearance) Assessed -Moisture (Julia-wound Skin Appearance) Assessed, Maceration -Color (Julia-wound Skin Appearance) Assessed, Erythema -Temperature (Julia-wound Skin No Abnormality Appearance) (Pt Warm) -Ulcer Cleansing Soap and Water -Anesthetic Used 4% Lidocaine Solution #1 LLE Medial -Current Size (cm) - Length 2.2 7.7 -Current Size (cm) - Width 2.5 1 -Current Size (cm) - Depth 0.1 0.1 -Total Square Cm 5.50 7.7 -Exudate Amt Small Small -Exudate Type Serosanguineous Serosanguineous -Wound Margin Distinct, Distinct, Outline Outline Attached Attached -Granulation Amt Large (67-100%) Large (67-100%) -Granulation Quality Red Lostant -Texture (Julia-wound Skin Appearance) Assessed Assessed -Moisture (Julia-wound Skin Appearance) Assessed Assessed -Color (Julia-wound Skin Appearance) Assessed, Assessed, Erythema Erythema -Temperature (Julia-wound Skin No Abnormality Appearance) (Pt Warm) -Tenderness on Palpation (Julia-wound No Skin Appearance) -Ulcer Cleansing Soap and Water Soap and Water -Foul Odor after Cleansing No -Anesthetic Used 4% Lidocaine 4% Lidocaine Solution Solution Lower Limb Edema Present Yes Right Calf (cm) 46 44 42.5 Right Ankle (cm) 30 28.6 27.5 Left Calf (cm) 43 43 41.5 Left Ankle (cm) 30 29 29.5 06/11/23 06/13/23 14:07 13:45 Wound Center Nurse 1 #4 RLE Lateral -Current Size (cm) - Length -Current Size (cm) - Width -Current Size (cm) - Depth -Total Square Cm -Exudate Amt -Exudate Type -Wound Margin -Granulation Amt -Granulation Quality -Texture (Julia-wound Skin Appearance) -Moisture (Julia-wound Skin Appearance) -Color (Julia-wound Skin Appearance) -Temperature (Julia-wound Skin Appearance) -Ulcer Cleansing -Foul Odor after Cleansing -Anesthetic Used #3 RLE -Current Size (cm) - Length -Current Size (cm) - Width -Current Size (cm) - Depth -Total Square Cm -Exudate Amt None Present -Exudate Type -Wound Margin Flat & Intact -Granulation Amt Large (67-100%) -Granulation Quality Lostant -Necrosis Amt None Present (0 %) -Necrotic Tissue Type -Structure Exposed N/A -Texture (Julia-wound Skin Appearance) Scarring -Moisture (Julia-wound Skin Appearance) Dry/Scaly -Color (Julia-wound Skin Appearance) No Abnormality -Temperature (Julia-wound Skin No Abnormality Appearance) (Pt Warm) -Tenderness on Palpation (Julia-wound No Skin Appearance) -Ulcer Cleansing Soap and Water -Foul Odor after Cleansing -Anesthetic Used Cetacaine -Wound Comment(s) #2 LLE Posterior -Current Size (cm) - Length -Current Size (cm) - Width -Current Size (cm) - Depth -Total Square Cm -Exudate Amt -Exudate Type -Wound Margin -Granulation Amt -Granulation Quality -Necrosis Amt -Necrotic Tissue Type -Texture (Ujlia-wound Skin Appearance) -Moisture (Julia-wound Skin Appearance) -Color (Julia-wound Skin Appearance) -Temperature (Julia-wound Skin Appearance) -Ulcer Cleansing -Anesthetic Used #1 LLE Medial -Current Size (cm) - Length -Current Size (cm) - Width -Current Size (cm) - Depth -Total Square Cm -Exudate Amt None Present -Exudate Type -Wound Margin Flat & Intact -Granulation Amt -Granulation Quality -Texture (Julia-wound Skin Appearance) Scarring -Moisture (Julia-wound Skin Appearance) No Abnormality, Dry/Scaly -Color (Julia-wound Skin Appearance) Assessed -Temperature (Julia-wound Skin Appearance) -Tenderness on Palpation (Julia-wound Skin Appearance) -Ulcer Cleansing -Foul Odor after Cleansing -Anesthetic Used Lower Limb Edema Present Right Calf (cm) 43 44 Right Ankle (cm) 28.8 28.5 Left Calf (cm) 42 43.6 Left Ankle (cm) 29.4 29.5 WC - Nurse 2 - General Ulcer CM Notes Start: 05/25/23 11:43 Freq: Status: Active Protocol: Activity Type Activity Date Activity User E-sign Co-sign Detail Recorded Client Recorded Date Recorded By Document 05/30/23 15:17 Desktop 05/30/23 15:22 Document 06/06/23 15:30 RADSONE Laptop 06/06/23 15:34 Document 06/13/23 14:20 RADSONE Laptop 06/13/23 14:21 05/30/23 06/06/23 06/13/23 15:17 15:30 14:20 Wound Center Nurse 2 #4 RLE Lateral -Time 15:17 -Correct Patient Yes -Correct Side, Site, Position Yes -Correct Procedure Yes -Procedure Performed Yes -Type of Procedure Debridement -Clinical Debridement Subcutaneous -Tissue Removed Subcutaneous -Tunneling No -Undermining/Tunneling No -Circular Undermining No -Wound/Ulcer Outcome Not Healed -Ulcer Cleansing Rinsed/ Irrigated with Saline -Foul Odor after Cleansing No -Bioengineered Tissue No -Bleeding Controlled with Pressure -Treatment Response Procedure Tolerated Well -Offloading No -Debridement - Subq, 1st 20sq cm No #3 RLE -Time 15:17 15:33 -Correct Patient Yes Yes No -Correct Side, Site, Position Yes Yes No -Correct Procedure Yes Yes No -Procedure Performed Yes Yes No -Type of Procedure Debridement Debridement -Clinical Debridement Subcutaneous Subcutaneous -Tissue Removed Subcutaneous Subcutaneous -Post Debridement (cm) - Length 7 2.5 0 -Post Debridement (cm) - Width 3.8 2.5 0 -Post Debridement (cm) - Depth 0.1 0.1 0 -Total Square (Post) (cm) 26.6 6.25 0 -Area of Debridement (cm) - Length 7 2.5 0 -Area of Debridement (cm) - Width 3.8 2.5 0 -Total Square (Area) (cm) 26.6 6.25 0 -Tunneling No No -Undermining/Tunneling No No -Circular Undermining No No -Wound/Ulcer Outcome Not Healed Not Healed Healed- Epithelialized -Ulcer Cleansing Rinsed/ Rinsed/ Irrigated with Irrigated with Saline Saline -Foul Odor after Cleansing No No -Bioengineered Tissue No No -Bleeding Controlled with Pressure Pressure -Treatment Response Procedure Procedure Tolerated Well Tolerated Well -Offloading No No -Debridement - Subq, 1st 20sq cm No No #2 LLE Posterior -Time 15:18 -Correct Patient Yes -Correct Side, Site, Position Yes -Correct Procedure Yes -Procedure Performed Yes -Type of Procedure Debridement -Clinical Debridement Subcutaneous -Tissue Removed Subcutaneous -Tunneling No -Undermining/Tunneling No -Circular Undermining No -Wound/Ulcer Outcome Not Healed -Ulcer Cleansing Rinsed/ Irrigated with Saline -Foul Odor after Cleansing No -Bioengineered Tissue No -Bleeding Controlled with Pressure -Treatment Response Procedure Tolerated Well -Offloading No -Debridement - Subq, 1st 20sq cm No #1 LLE Medial -Time 15:18 15:33 14:20 -Correct Patient Yes Yes Yes -Correct Side, Site, Position Yes Yes Yes -Correct Procedure Yes Yes Yes -Procedure Performed Yes Yes Yes -Type of Procedure Debridement Debridement Debridement -Clinical Debridement Subcutaneous Subcutaneous Subcutaneous -Tissue Removed Subcutaneous Subcutaneous Subcutaneous -Post Debridement (cm) - Length 10.0 2.4 1.3 -Post Debridement (cm) - Width 3.5 1.7 1.0 -Post Debridement (cm) - Depth 0.1 0.1 0.1 -Total Square (Post) (cm) 35.00 4.08 1.30 -Area of Debridement (cm) - Length 10 2.4 1.3 -Area of Debridement (cm) - Width 3.5 1.7 1.0 -Total Square (Area) (cm) 35.0 4.08 1.30 -Tunneling No No No -Undermining/Tunneling No No No -Circular Undermining No No No -Wound/Ulcer Outcome Not Healed Not Healed Not Healed -Ulcer Cleansing Rinsed/ Rinsed/ Rinsed/ Irrigated with Irrigated with Irrigated with Saline Saline Saline -Foul Odor after Cleansing No No No -Bioengineered Tissue No No No -Bleeding Controlled with Pressure Pressure Pressure -Treatment Response Procedure Procedure Procedure Tolerated Well Tolerated Well Tolerated Well -Offloading No No No -Debridement - Subq, 1st 20sq cm Yes Yes Yes -Debridement, SubQ, ea addt'l 20sq cm 3 or part thereof Pain Scale: 0-10 Numeric Is Patient Pain Free? Yes Yes Yes - Nurse 3 - General Ulcer D/C NN Start: 05/25/23 11:43 Freq: Status: Active Protocol: Activity Type Activity Date Activity User E-sign Co-sign Detail Recorded Client Recorded Date Recorded By Document 05/25/23 11:44 MT [id number] 05/25/23 11:58 MT Document 05/30/23 15:33 KW Desktop 05/30/23 15:35 KW Document 06/01/23 11:21 KW Desktop 06/01/23 11:32 KW Document 06/06/23 15:56 GM Desktop 06/06/23 15:57 GM Document 06/11/23 14:07 DL Desktop 06/11/23 14:13 DL Document 06/13/23 14:36 KW Desktop 06/13/23 14:37 KW 05/25/23 05/30/23 06/01/23 11:44 15:33 11:21 Wound Care Center Nurse 3 #4 RLE Lateral -Ulcer Cleansing Soap and Water -Primary Dressing Applied Promogran -Other Dressing adaptic -Promogran 3 #3 RLE -Ulcer Cleansing Soap and Water -Foul Odor after Cleansing -Primary Dressing Applied NonAdherent NonAdherent Contact Layer, Contact Layer Other -Other Dressing cast padding cast padding -Primary Dressing Covered/Secured with #2 LLE Posterior -Ulcer Cleansing Soap and Water -Primary Dressing Applied Optilok 8x12 -Optilok 8x12 3 #1 LLE Medial -Ulcer Cleansing -Foul Odor after Cleansing -Primary Dressing Applied NonAdherent NonAdherent Contact Layer, Contact Layer Other -Other Dressing casting pad cast padding -Primary Dressing Covered/Secured with BLE -Lotion applied to leg before compression wrap -Multi-Layered Wrap Application Unna Boot - Unna Boot - Bilateral ($) Bilateral ($) Right -Multi-Layered Wrap Application Multi-Layer Comp - Right ($ ) -Tubular Bandage -Size of Tubigrip Used -Size E ($) Left -Multi-Layered Wrap Application Multi-Layer Comp - Left ($) -Tubular Bandage -Size of Tubigrip Used -Size E ($) Treatment Response Vital Signs Temperature (97.8 F-99.1 F) 97.2 F L Temperature Source Temporal Pulse Rate (60-100) 75 Pulse Location Monitor Respiratory Rate (12-18) 18 Respiratory rate source Observation Oxygen Delivery Method Room Air Blood Pressure (90/60-120/80) 122/53 H Blood Pressure Mean (mm Hg) 76 Source Monitor Position Semi-Fowlers Blood Pressure Location Left Arm Pain Scale: 0-10 Numeric Is Patient Pain Free? Yes Yes Yes Teaching: Wound Center *Wound/Skin Impairment -Person Taught -Teaching Method -Response to teaching WC - Visit Discharge Discharge Condition Stable Stable Stable Ambulatory Status Ambulatory Cane Ambulatory, Walker Transportation Private Auto Private Auto Private Auto Medication Reconcilliation completed & No No No provided to patient/care provider Clinical Summary of Care Provided Yes Yes Yes Notes: nurse visit 06/06/23 06/11/23 06/13/23 15:56 14:07 14:36 Wound Care Center Nurse 3 #4 RLE Lateral -Ulcer Cleansing -Primary Dressing Applied -Other Dressing -Promogran #3 RLE -Ulcer Cleansing Not Cleansed Soap and Water -Foul Odor after Cleansing No No -Primary Dressing Applied NonAdherent NonAdherent Contact Layer Contact Layer -Other Dressing xeroform unna boot -Primary Dressing Covered/Secured with Dry Gauze & Roll Gauze, Secured with Tape #2 LLE Posterior -Ulcer Cleansing -Primary Dressing Applied -Optilok 8x12 #1 LLE Medial -Ulcer Cleansing Not Cleansed Soap and Water -Foul Odor after Cleansing No No -Primary Dressing Applied Other -Other Dressing unna boot xeroform -Primary Dressing Covered/Secured with Dry Gauze & Dry Gauze & Roll Gauze Roll Gauze, Secured with Tape BLE -Lotion applied to leg before No compression wrap -Multi-Layered Wrap Application Unna Boot - Unna Boot - Bilateral ($) Bilateral ($) Right -Multi-Layered Wrap Application -Tubular Bandage Single Layer -Size of Tubigrip Used Size E -Size E ($) 1 Left -Multi-Layered Wrap Application -Tubular Bandage Single Layer -Size of Tubigrip Used Size E -Size E ($) 1 Treatment Response Procedure Tolerated Well Vital Signs Temperature (97.8 F-99.1 F) 97.1 F L Temperature Source Temporal Pulse Rate (60-100) 75 Pulse Location Monitor Respiratory Rate (12-18) 18 Respiratory rate source Observation Oxygen Delivery Method Blood Pressure (90/60-120/80) 129/63 H Blood Pressure Mean (mm Hg) 85 Source Monitor Position Blood Pressure Location Pain Scale: 0-10 Numeric Is Patient Pain Free? Yes Yes Yes Teaching: Wound Center *Wound/Skin Impairment -Person Taught Patient -Teaching Method Discussion, Demonstration -Response to teaching Verbalize understanding WC - Visit Discharge Discharge Condition Stable Stable Stable Ambulatory Status Ambulatory Ambulatory,Cane Ambulatory,Cane Transportation Private Auto Private Auto Private Auto Medication Reconcilliation completed & Yes No provided to patient/care provider Clinical Summary of Care Provided Yes Yes Notes: Assessment/Plan Assessment/Plan (1) Non-pressure chronic ulcer of other part of left lower leg with fat layer exposed: CODE(S): L97.822 - Non-pressure chronic ulcer of other part of left lower leg with fat layer exposed PLAN: Patient was examined and evaluated. All findings were discussed with the patient. All questions were answered to the patient satisfaction. Excisional debridement down to and including subcutaneous tissue of the left lower extremity full-thickness ulceration with a 5 mm dermal curette. Predebridement measurement is 1.0 x 0.8 x 0.1 cm. Postdebridement measurement is 1.3 x 1.0 x 0.1 cm. Left lower extremity ulcer dressed with Xeroform followed by dry sterile dressing and a double layer Tubigrip. Patient will plan for pulse volume recordings and venous Dopplers on 06/14/2023. Once we have the patient's results we will begin treatment with 3M compression wraps followed by long-term CircAid wraps that the patient will need to purchaseprior to discharge from the wound care center. Patient was understanding of this. Patient will follow-up in 2 weeks. (2) Other specified peripheral vascular diseases: CODE(S): I73.89 - Other specified peripheral vascular diseases 06/13/232035 <Electronically signed by Last Camilo DPM> Cosigner Signature (if applicable): CC: ~ Signed [facility] Work Phone: [phone] 896-905903-13-2024 Progress note Author Last Camilo [facility] June 06, 2023 4:32pm Note Date/Time June 06, 2023 4:3 2pm [facility] [address] [place] [address] Progress Note - Wound Care 06/06/23 1629 MR#: [id number] Acct: [id number] Name: SOULEYMANE JOYCE Rep #:[id number] : 1940 82 From: Last WARD PCP: RUSS Hernandez Sta tus:REG RCR Location: History of Present Illness Date of Service: 06/06/23 Chief Complaint: Bilateral lower extremity ulcerations, swelling, edema, and lymphedema History of Wound: This is an 82-year-old male who presents with a longstanding history of swelling, edema, and lymphedema in his lower extremities. The patient has recently developed ulcerations in both lower extremities. These ulcerations began as blisters. They were associated with severe swelling, edema, and lymphedema. It appears as though the patient's presenting symptoms and manifestations are related to his daily habits. The patient sleeps in a chair. He does so due to sleep apnea. He is not active. He spends a large part of each day sitting. He requires a cane for ambulation. He denies a history of thrombophlebitis. His relates that the swelling and edema in his lower extremities was minimized after a week in the intensive care unit for treatment of other problems. This was likely due to the patient's confinement to bed, with his legs elevated to heart level. Patient had blood work performedon May 17, 2023, with results as follows: White blood count 10.6, hemoglobin 11.8, hematocrit 37.4, platelets 169,000, iron 62, TIBC 316, [id number]. The patient has a history of pre-existing medical problems and prior procedures, which are listed below. Subjective Subjective Mr. Joyce is a 82-year-old male presenting for follow-up and evaluation of bilateral lower extremity ulcerations and swelling at the wound care center at [facility]. Patient was seen by an outside provider. Patient is following up with Dr. Camilo for continued evaluation and treatment to the patient's bilateral lower extremity ulcerations and swelling. Patient is not a diabetic. Patient admits to improvement when being evaluated today. Denies trauma. Denies constitutional symptoms. Other pedal complaints at this time. Objective Data Objective Data Vital Signs: Vital Signs Temp Pulse Resp BP O2 Del Method 97.2 F L 73 18 163/71 H Room Air 06/01/23 11:21 06/06/23 15:10 06/06/23 15:10 06/06/23 15:10 06/06/23 15:10 Oxygen Delivery Method Room Air Weight: 109.769 kg Body Mass Index (BMI) 39.0 Physical Exam Narrative Vascular: DP and PT pulse are palpable. CFT is brisk. +1 pitting edema appreciated bilateral lower extremity. Evidence of hemosiderin deposits are appreciated bilateral lower extremity. Skin temperature great is warm to warm from proximal ankle to distal digits bilateral. No increase in focal warmth is appreciated. Neurological: Light touch and epicritic station is intact. Patient responds to painful stimuli. Dermatological: Full-thickness ulcerations appreciated to the bilateral lower extremity. The right lower extremity ulceration measures 2.5 x 2.5 x 0.1 cm. Left lower extremity ulceration measures 2.4 x 1.7 x 0.1 cm. All ulcerations wound base is 100% granular nature. Evidence of serous drainage. +1 pitting edema is appreciated bilateral lower extremity. Evidence of hemosiderin deposits are appreciated. Excisional debridement down to and including subcutaneous tissue of the right lower extremity full-thickness ulceration with a 5 mm dermal curette. Predebridement measurements are 2.3 x 2.3 x 0.1 cm. Postdebridement measurementis 2.5 x 2.5 x 0.1 cm. Excisional debridement down to and including subcutaneous tissue of the left lower extremity full-thickness ulceration with a 5 mm dermal curette. Predebridement measurement is 2.3 x 1.5 x 0.1 cm. Postdebridement measurement is 2.4 x 1.7 x 0.1 cm. Musculoskeletal: No strength 5 and 5 bilaterally. Mild pain on palpation to bilateral full-thickness ulcerations. No pain with calf compression. Debridement Note Debridement Note Debridement Free Text: Excisional debridement down to and including subcutaneoustissue of the right lower extremity full-thickness ulceration with a 5 mm dermalcurette. Predebridement measurements are 2.3 x 2.3 x 0.1 cm. Postdebridement measurement is 2.5 x 2.5 x 0.1 cm. Excisional debridement down to and including subcutaneous tissue of the left lower extremity full-thickness ulceration with a 5 mm dermal curette. Predebridement measurement is 2.3 x 1.5 x 0.1 cm. Postdebridement measurement is 2.4 x 1.7 x 0.1 cm. Post-Debridement Measurements and Additional Note: Post-Debridement Measurements/Treatment - Nurse 1 - General Ulcer Assessment Start: 05/25/23 11:43 Freq: Status: Active Protocol: RAMÓN.CHRISTINAT Activity Type Activity Date Activity User E-sign Co-sign Detail Recorded Client Recorded Date Recorded By Document 05/30/23 14:43 KW Desktop 05/30/23 15:04 KW Document 06/01/23 11:21 KW Desktop 06/01/23 11:32 KW Document 06/06/23 15:10 KW Desktop 06/06/23 15:27 KW 05/30/23 06/01/23 06/06/23 14:43 11:21 15:10 - Today's Visit Information Type of service Follow-up Visit Nurse-only Follow-up Visit (Physician/SALVAGE DIVER Visit (Physician/SALVAGE DIVER ) ) Arrival Mode Ambulatory,Cane Ambulatory,Cane Patient Identification Verified (Name & Yes Yes Yes ) Height and Weight Body Mass Index (BMI) 39.0 39.0 39.0 BMI Classification Obese Obese Obese Vital Signs Temperature (97.8 F-99.1 F) 96.3 F L 97.2 F L Temperature Source Temporal Temporal Pulse Rate (60-100) 81 75 73 Pulse Location Monitor Monitor Monitor Respiratory Rate (12-18) 18 18 18 Respiratory rate source Observation Observation Observation Oxygen Delivery Method Room Air Room Air Room Air Blood Pressure (90/60-120/80) 144/64 H 122/53 H 163/71 H Blood Pressure Mean (mm Hg) 90 76 101 Source Monitor Monitor Monitor Position Supine Semi-Fowlers Semi-Fowlers Blood Pressure Location Left Forearm Left Arm Left Arm History Since Last Visit- (Skip if this is Patient's initial visit) Have you changed medications since your No No No last visit? Any new allergies or adverse reactions No No No Had a fall/change in ADL's that may No No No increase risk of falls Signs or symptoms of abuse and/or No No No neglect since last visit Have you been in the hospital since your No No No last visit? Has dressing in place as prescribed Yes Yes Yes Has compression in place as prescribed Yes Yes Yes Has offloadiing in place as prescribed N/A N/A N/A Experienced any changes in pain level or No No No management Left Footwear Regular Shoe Regular Shoe Regular Shoe Right Footwear Regular Shoe Regular Shoe Regular Shoe Pain Scale: 0-10 Numeric Is Patient Pain Free? Yes Yes Yes WC - Nurse 1 - General Ulcer Measurement Start: 05/25/23 11:43 Freq: Status: Active Protocol: Activity Type Activity Date Activity User E-sign Co-sign Detail Recorded Client Recorded Date Recorded By Document 05/30/23 14:43 KW Desktop 05/30/23 15:04 KW Document 06/01/23 11:21 KW Desktop 06/01/23 11:32 KW Document 06/06/23 15:10 KW Desktop 06/06/23 15:27 KW 05/30/23 06/01/23 06/06/23 14:43 11:21 15:10 Wound Center Nurse 1 #4 RLE Lateral -Current Size (cm) - Length 8.7 -Current Size (cm) - Width 4 -Current Size (cm) - Depth 0.2 -Total Square Cm 34.8 -Exudate Amt Small -Exudate Type Serosanguineous -Wound Margin Distinct, Outline Attached -Granulation Amt Large (67-100%) -Granulation Quality Red -Texture (Julia-wound Skin Appearance) Assessed -Moisture (Julia-wound Skin Appearance) Maceration -Color (Julia-wound Skin Appearance) Assessed, Erythema -Temperature (Julia-wound Skin No Abnormality Appearance) (Pt Warm) -Ulcer Cleansing Soap and Water -Foul Odor after Cleansing No -Anesthetic Used 4% Lidocaine Solution #2 LLE Posterior -Current Size (cm) - Length 2.2 -Current Size (cm) - Width 1 -Current Size (cm) - Depth 0.2 -Total Square Cm 2.2 -Exudate Amt Medium -Exudate Type Serosanguineous -Wound Margin Distinct, Outline Attached -Granulation Amt Large (67-100%) -Granulation Quality Lostant -Necrosis Amt Medium (34-66%) -Necrotic Tissue Type Adherent Slough -Texture (Julia-wound Skin Appearance) Assessed -Moisture (Julia-wound Skin Appearance) Assessed, Maceration -Color (Julia-wound Skin Appearance) Assessed, Erythema -Temperature (Julia-wound Skin No Abnormality Appearance) (Pt Warm) -Ulcer Cleansing Soap and Water -Anesthetic Used 4% Lidocaine Solution #3 RLE -Current Size (cm) - Length 3 3 -Current Size (cm) - Width 2.7 2 -Current Size (cm) - Depth 0.1 0.1 -Total Square Cm 8.1 6 -Exudate Amt Medium Small -Exudate Type Serosanguineous Serosanguineous -Wound Margin Distinct, Distinct, Outline Outline Attached Attached -Granulation Amt Small (1-33%) Large (67-100%) -Granulation Quality Red Lostant -Necrosis Amt Medium (34-66%) -Necrotic Tissue Type Adherent Slough -Texture (Julia-wound Skin Appearance) Assessed Assessed -Moisture (Julia-wound Skin Appearance) Assessed Assessed -Color (Julia-wound Skin Appearance) Assessed Assessed -Temperature (Julia-wound Skin No Abnormality No Abnormality Appearance) (Pt Warm) (Pt Warm) -Ulcer Cleansing Soap and Water Soap and Water -Foul Odor after Cleansing No -Anesthetic Used 4% Lidocaine 4% Lidocaine Solution Solution -Wound Comment(s) scabbing #1 LLE Medial -Current Size (cm) - Length 2.2 7.7 -Current Size (cm) - Width 2.5 1 -Current Size (cm) - Depth 0.1 0.1 -Total Square Cm 5.50 7.7 -Exudate Amt Small Small -Exudate Type Serosanguineous Serosanguineous -Wound Margin Distinct, Distinct, Outline Outline Attached Attached -Granulation Amt Large (67-100%) Large (67-100%) -Granulation Quality Red Lostant -Texture (Julia-wound Skin Appearance) Assessed Assessed -Moisture (Julia-wound Skin Appearance) Assessed Assessed -Color (Julia-wound Skin Appearance) Assessed, Assessed, Erythema Erythema -Temperature (Julia-wound Skin No Abnormality Appearance) (Pt Warm) -Tenderness on Palpation (Julia-wound No Skin Appearance) -Ulcer Cleansing Soap and Water Soap and Water -Foul Odor after Cleansing No -Anesthetic Used 4% Lidocaine 4% Lidocaine Solution Solution Lower Limb Edema Present Yes Right Calf (cm) 46 44 42.5 Right Ankle (cm) 30 28.6 27.5 Left Calf (cm) 43 43 41.5 Left Ankle (cm) 30 29 29.5 WC - Nurse 2 - General Ulcer CM Notes Start: 05/25/23 11:43 Freq: Status: Active Protocol: Activity Type Activity Date Activity User E-sign Co-sign Detail Recorded Client Recorded Date Recorded By Document 05/30/23 15:17 Desktop 05/30/23 15:22 Document 06/06/23 15:30 Laptop 06/06/23 15:34 05/30/23 06/06/23 15:17 15:30 Wound Center Nurse 2 #4 RLE Lateral -Time 15:17 -Correct Patient Yes -Correct Side, Site, Position Yes -Correct Procedure Yes -Procedure Performed Yes -Type of Procedure Debridement -Clinical Debridement Subcutaneous -Tissue Removed Subcutaneous -Tunneling No -Undermining/Tunneling No -Circular Undermining No -Wound/Ulcer Outcome Not Healed -Ulcer Cleansing Rinsed/ Irrigated with Saline -Foul Odor after Cleansing No -Bioengineered Tissue No -Bleeding Controlled with Pressure -Treatment Response Procedure Tolerated Well -Offloading No -Debridement - Subq, 20sq cm No #2 LLE Posterior -Time 15:18 -Correct Patient Yes -Correct Side, Site, Position Yes -Correct Procedure Yes -Procedure Performed Yes -Type of Procedure Debridement -Clinical Debridement Subcutaneous -Tissue Removed Subcutaneous -Tunneling No -Undermining/Tunneling No -Circular Undermining No -Wound/Ulcer Outcome Not Healed -Ulcer Cleansing Rinsed/ Irrigated with Saline -Foul Odor after Cleansing No -Bioengineered Tissue No -Bleeding Controlled with Pressure -Treatment Response Procedure Tolerated Well -Offloading No -Debridement - Subq, 1st 20sq cm No #3 RLE -Time 15:17 15:33 -Correct Patient Yes Yes -Correct Side, Site, Position Yes Yes -Correct Procedure Yes Yes -Procedure Performed Yes Yes -Type of Procedure Debridement Debridement -Clinical Debridement Subcutaneous Subcutaneous -Tissue Removed Subcutaneous Subcutaneous -Post Debridement (cm) - Length 7 2.5 -Post Debridement (cm) - Width 3.8 2.5 -Post Debridement (cm) - Depth 0.1 0.1 -Total Square (Post) (cm) 26.6 6.25 -Area of Debridement (cm) - Length 7 2.5 -Area of Debridement (cm) - Width 3.8 2.5 -Total Square (Area) (cm) 26.6 6.25 -Tunneling No No -Undermining/Tunneling No No -Circular Undermining No No -Wound/Ulcer Outcome Not Healed Not Healed -Ulcer Cleansing Rinsed/ Rinsed/ Irrigated with Irrigated with Saline Saline -Foul Odor after Cleansing No No -Bioengineered Tissue No No -Bleeding Controlled with Pressure Pressure -Treatment Response Procedure Procedure Tolerated Well Tolerated Well -Offloading No No -Debridement - Subq, 20sq cm No No #1 LLE Medial -Time 15:18 15:33 -Correct Patient Yes Yes -Correct Side, Site, Position Yes Yes -Correct Procedure Yes Yes -Procedure Performed Yes Yes -Type of Procedure Debridement Debridement -Clinical Debridement Subcutaneous Subcutaneous -Tissue Removed Subcutaneous Subcutaneous -Post Debridement (cm) - Length 10.0 2.4 -Post Debridement (cm) - Width 3.5 1.7 -Post Debridement (cm) - Depth 0.1 0.1 -Total Square (Post) (cm) 35.00 4.08 -Area of Debridement (cm) - Length 10 2.4 -Area of Debridement (cm) - Width 3.5 1.7 -Total Square (Area) (cm) 35.0 4.08 -Tunneling No No -Undermining/Tunneling No No -Circular Undermining No No -Wound/Ulcer Outcome Not Healed Not Healed -Ulcer Cleansing Rinsed/ Rinsed/ Irrigated with Irrigated with Saline Saline -Foul Odor after Cleansing No No -Bioengineered Tissue No No -Bleeding Controlled with Pressure Pressure -Treatment Response Procedure Procedure Tolerated Well Tolerated Well -Offloading No No -Debridement - Subq, 1st 20sq cm Yes Yes -Debridement, SubQ, ea addt'l 20sq cm 3 or part thereof Pain Scale: 0-10 Numeric Is Patient Pain Free? Yes Yes WC - Nurse 3 - General Ulcer D/C NN Start: 05/25/23 11:43 Freq: Status: Active Protocol: Activity Type Activity Date Activity User E-sign Co-sign Detail Recorded Client Recorded Date Recorded By Document 05/25/23 11:44 MT [id number] 05/25/23 11:58 MT Document 05/30/23 15:33 KW Desktop 05/30/23 15:35 KW Document 06/01/23 11:21 KW Desktop 06/01/23 11:32 KW Document 06/06/23 15:56 GM Desktop 06/06/23 15:57 GM 05/25/23 05/30/23 06/01/23 11:44 15:33 11:21 Wound Care Center Nurse 3 #4 RLE Lateral -Ulcer Cleansing Soap and Water -Primary Dressing Applied Promogran -Other Dressing adaptic -Promogran 3 #2 LLE Posterior -Ulcer Cleansing Soap and Water -Primary Dressing Applied Optilok 8x12 -Optilok 8x12 3 #3 RLE -Ulcer Cleansing Soap and Water -Foul Odor after Cleansing -Primary Dressing Applied NonAdherent NonAdherent Contact Layer, Contact Layer Other -Other Dressing cast padding cast padding -Primary Dressing Covered/Secured with #1 LLE Medial -Ulcer Cleansing -Foul Odor after Cleansing -Primary Dressing Applied NonAdherent NonAdherent Contact Layer, Contact Layer Other -Other Dressing casting pad cast padding -Primary Dressing Covered/Secured with BLE -Lotion applied to leg before compression wrap -Multi-Layered Wrap Application Unna Boot - Unna Boot - Bilateral ($) Bilateral ($) Right -Multi-Layered Wrap Application Multi-Layer Comp - Right ($ ) Left -Multi-Layered Wrap Application Multi-Layer Comp - Left ($) Vital Signs Temperature (97.8 F-99.1 F) 97.2 F L Temperature Source Temporal Pulse Rate (60-100) 75 Pulse Location Monitor Respiratory Rate (12-18) 18 Respiratory rate source Observation Oxygen Delivery Method Room Air Blood Pressure (90/60-120/80) 122/53 H Blood Pressure Mean (mm Hg) 76 Source Monitor Position Semi-Fowlers Blood Pressure Location Left Arm Pain Scale: 0-10 Numeric Is Patient Pain Free? Yes Yes Yes Teaching: Wound Center *Wound/Skin Impairment -Person Taught -Teaching Method -Response to teaching WC - Visit Discharge Discharge Condition Stable Stable Stable Ambulatory Status Ambulatory Cane Ambulatory, Walker Transportation Private Auto Private Auto Private Auto Medication Reconcilliation completed & No No No provided to patient/care provider Clinical Summary of Care Provided Yes Yes Yes Notes: nurse visit 06/06/23 15:56 Wound Care Center Nurse 3 #4 RLE Lateral -Ulcer Cleansing -Primary Dressing Applied -Other Dressing -Promogran #2 LLE Posterior -Ulcer Cleansing -Primary Dressing Applied -Optilok 8x12 #3 RLE -Ulcer Cleansing Not Cleansed -Foul Odor after Cleansing No -Primary Dressing Applied NonAdherent Contact Layer -Other Dressing xeroform -Primary Dressing Covered/Secured with Dry Gauze & Roll Gauze, Secured with Tape #1 LLE Medial -Ulcer Cleansing Not Cleansed -Foul Odor after Cleansing No -Primary Dressing Applied -Other Dressing -Primary Dressing Covered/Secured with Dry Gauze & Roll Gauze BLE -Lotion applied to leg before No compression wrap -Multi-Layered Wrap Application Unna Boot - Bilateral ($) Right -Multi-Layered Wrap Application Left -Multi-Layered Wrap Application Vital Signs Temperature (97.8 F-99.1 F) Temperature Source Pulse Rate (60-100) Pulse Location Respiratory Rate (12-18) Respiratory rate source Oxygen Delivery Method Blood Pressure (90/60-120/80) Blood Pressure Mean (mm Hg) Source Position Blood Pressure Location Pain Scale: 0-10 Numeric Is Patient Pain Free? Yes Teaching: Wound Center *Wound/Skin Impairment -Person Taught Patient -Teaching Method Discussion, Demonstration -Response to teaching Verbalize understanding WC - Visit Discharge Discharge Condition Stable Ambulatory Status Ambulatory Transportation Private Auto Medication Reconcilliation completed & Yes provided to patient/care provider Clinical Summary of Care Provided Yes Notes: Assessment/Plan Assessment/Plan (1) Non-pressure chronic ulcer of other part of left lower leg with fat layer exposed: CODE(S): L97.822 - Non-pressure chronic ulcer of other part of left lower leg with fat layer exposed PLAN: Patient was examined and evaluated. All findings were discussed with the patient. All questions were answered to the patient's satisfaction. Excisional debridement down to and including subcutaneous tissue of the right lower extremity full-thickness ulceration with a 5 mm dermal curette. Predebridement measurements are 2.3 x 2.3 x 0.1 cm. Postdebridement measurementis 2.5 x 2.5 x 0.1 cm. Excisional debridement down to and including subcutaneous tissue of the left lower extremity full-thickness ulceration with a 5 mm dermal curette. Predebridement measurement is 2.3 x 1.5 x 0.1 cm. Postdebridement measurement is 2.4 x 1.7 x 0.1 cm. Patient was placed in multilayer compression bandage. He is to keep them clean dry and intact. Do not remove. Follow-up at the wound care center with Dr. Camilo in 1 week. (2) Non-pressure chronic ulcer of other part of right lower leg with fat layer exposed: CODE(S): L97.812 - Non-pressure chronic ulcer of other part of right lowerleg with fat layer exposed (3) Other specified peripheral vascular diseases: CODE(S): I73.89 - Other specified peripheral vascular diseases 06/06/23 1632 <Electronically signed by Last Camilo DPM> Cosigner Signature (if applicable): CC: ~ Signed [facility] Work Phone: [phone]) 356-178503-06-2024 Progress note Author Last Camilo [facility] May 30, 2023 4:38pm Note Date/Time May 30, 2023 4:38 pm [facility] [address] [place] [id number] Progress Note - Wound Care 05/30/23 1633 MR#: [id number] Acct: [id number] Name: SOULEYMANE JOYCE Rep #:[id number] : 1940 82 From: Last WARD PCP: RUSS Hernandez tus:REG RCR Location: History of Present Illness Date of Service: 05/30/23 Chief Complaint: Bilateral lower extremity ulcerations, swelling, edema, and lymphedema History of Wound: This is an 82-year-old male who presents with a longstanding history of swelling, edema, and lymphedema in his lower extremities. The patient has recently developed ulcerations in both lower extremities. These ulcerations began as blisters. They were associated with severe swelling, edema, and lymphedema. It appears as though the patient's presenting symptoms and manifestations are related to his daily habits. The patient sleeps in a chair. He does so due to sleep apnea. He is not active. He spends a large part of each day sitting. He requires a cane for ambulation. He denies a history of thrombophlebitis. His relates that the swelling and edema in his lower extremities was minimized after a week in the intensive care unit for treatment of other problems. This was likely due to the patient's confinement to bed, with his legs elevated to heart level. Patient had blood work performedon May 17, 2023, with results as follows: White blood count 10.6, hemoglobin 11.8, hematocrit 37.4, platelets 169,000, iron 62, TIBC 316, [id number]. The patient has a history of pre-existing medical problems and prior procedures, which are listed below. Subjective Subjective Mr. Joyce is a 82-year-old male presenting for follow-up and evaluation of bilateral lower extremity ulcerations and swelling at the wound care center at [facility]. Patient was seen by an outside provider. Patient is following up with Dr. Camilo for continued evaluation and treatment to the patient's bilateral lower extremity ulcerations and swelling. Patient is not a diabetic. Patient admits to improvement when being evaluated today. Denies trauma. Denies constitutional symptoms. Other pedal complaints at this time. Objective Data Objective Data Vital Signs: Vital Signs Temp Pulse Resp BP O2 Del Method 96.3 F L 81 18 144/64 H Room Air 05/30/23 14:43 05/30/23 14:43 05/30/23 14:43 05/30/23 14:43 05/30/23 14:43 Oxygen Delivery Method Room Air Weight: 109.769 kg Body Mass Index (BMI) 39.0 Physical Exam Narrative Vascular: DP and PT pulse are palpable. CFT is brisk. +1 pitting edema appreciated bilateral lower extremity. Evidence of hemosiderin deposits are appreciated bilateral lower extremity. Skin temperature great is warm to warm from proximal ankle to distal digits bilateral. No increase in focal warmth is appreciated. Neurological: Light touch and epicritic station is intact. Patient responds to painful stimuli. Dermatological: Full-thickness ulcerations appreciated to the bilateral lower extremity. The right lower extremity ulceration measures 7.0 x 3.8 x 0.1 cm. Left lower extremity ulceration measures 10.0 x 3.5 x 0.1 cm. All ulcerations wound base is 100% granular nature. Evidence of serous drainage. +1 pitting edema is appreciated bilateral lower extremity. Evidence of hemosiderin deposits are appreciated. Excisional debridement down to and including subcutaneous tissue of the right lower extremity full-thickness ulceration with a 5 mm dermal curette. Predebridement measurements are 6.8 x 3.5 x 0.1 cm. Postdebridement measurementis 7.0 x 3.8 x 0.1 cm. Excisional debridement down to and including subcutaneous tissue of the left lower extremity full-thickness ulceration with a 5 mm dermal curette. Predebridement measurement is 9.5 x 3.0 x 0.1 cm. Postdebridement measurement is 10.0 x 3.5 x 0.1 cm. Musculoskeletal: No strength 5 and 5 bilaterally. Mild pain on palpation to bilateral full-thickness ulcerations. No pain with calf compression. Debridement Note Debridement Note Debridement Free Text: Excisional debridement down to and including subcutaneoustissue of the right lower extremity full-thickness ulceration with a 5 mm dermalcurette. Predebridement measurements are 6.8 x 3.5 x 0.1 cm. Postdebridement measurement is 7.0 x 3.8 x 0.1 cm. Excisional debridement down to and including subcutaneous tissue of the left lower extremity full-thickness ulceration with a 5 mm dermal curette. Predebridement measurement is 9.5 x 3.0 x 0.1 cm. Postdebridement measurement is 10.0 x 3.5 x 0.1 cm. Post-Debridement Measurements and Additional Note: Post-Debridement Measurements/Treatment RAMÓN - Nurse 1 - General Ulcer Assessment Start: 05/25/23 11:43 Freq: Status: Active Protocol: YEYO Activity Type Activity Date Activity User E-sign Co-sign Detail Recorded Client Recorded Date Recorded By Document 05/30/23 14:43 Desktop 05/30/23 15:04 KW 05/30/23 14:43 - Today's Visit Information Type of service Follow-up Visit (Physician/SALVAGE DIVER ) Patient Identification Verified (Name & Yes ) Height and Weight Body Mass Index (BMI) 39.0 BMI Classification Obese Vital Signs Temperature (97.8 F-99.1 F) 96.3 F L Temperature Source Temporal Pulse Rate (60-100) 81 Pulse Location Monitor Respiratory Rate (12-18) 18 Respiratory rate source Observation Oxygen Delivery Method Room Air Blood Pressure (90/60-120/80) 144/64 H Blood Pressure Mean (mm Hg) 90 Source Monitor Position Supine Blood Pressure Location Left Forearm History Since Last Visit- (Skip if this is Patient's initial visit) Have you changed medications since your No last visit? Any new allergies or adverse reactions No Had a fall/change in ADL's that may No increase risk of falls Signs or symptoms of abuse and/or No neglect since last visit Have you been in the hospital since your No last visit? Has dressing in place as prescribed Yes Has compression in place as prescribed Yes Has offloadiing in place as prescribed N/A Experienced any changes in pain level or No management Left Footwear Regular Shoe Right Footwear Regular Shoe Pain Scale: 0-10 Numeric Is Patient Pain Free? Yes WC - Nurse 1 - General Ulcer Measurement Start: 05/25/23 11:43 Freq: Status: Active Protocol: Activity Type Activity Date Activity User E-sign Co-sign Detail Recorded Client Recorded Date Recorded By Document 05/30/23 14:43 KW Desktop 05/30/23 15:04 KW 05/30/23 14:43 Wound Center Nurse 1 #4 RLE Lateral -Current Size (cm) - Length 8.7 -Current Size (cm) - Width 4 -Current Size (cm) - Depth 0.2 -Total Square Cm 34.8 -Exudate Amt Small -Exudate Type Serosanguineous -Wound Margin Distinct, Outline Attached -Granulation Amt Large (67-100%) -Granulation Quality Red -Texture (Julia-wound Skin Appearance) Assessed -Moisture (Julia-wound Skin Appearance) Maceration -Color (Julia-wound Skin Appearance) Assessed, Erythema -Temperature (Julia-wound Skin No Abnormality Appearance) (Pt Warm) -Ulcer Cleansing Soap and Water -Foul Odor after Cleansing No -Anesthetic Used 4% Lidocaine Solution #2 LLE Posterior -Current Size (cm) - Length 2.2 -Current Size (cm) - Width 1 -Current Size (cm) - Depth 0.2 -Total Square Cm 2.2 -Exudate Amt Medium -Exudate Type Serosanguineous -Wound Margin Distinct, Outline Attached -Granulation Amt Large (67-100%) -Granulation Quality Lostant -Necrosis Amt Medium (34-66%) -Necrotic Tissue Type Adherent Slough -Texture (Julia-wound Skin Appearance) Assessed -Moisture (Julia-wound Skin Appearance) Assessed, Maceration -Color (Julia-wound Skin Appearance) Assessed, Erythema -Temperature (Julia-wound Skin No Abnormality Appearance) (Pt Warm) -Ulcer Cleansing Soap and Water -Anesthetic Used 4% Lidocaine Solution #3 RLE -Current Size (cm) - Length 3 -Current Size (cm) - Width 2.7 -Current Size (cm) - Depth 0.1 -Total Square Cm 8.1 -Exudate Amt Medium -Exudate Type Serosanguineous -Wound Margin Distinct, Outline Attached -Granulation Amt Small (1-33%) -Granulation Quality Red -Necrosis Amt Medium (34-66%) -Necrotic Tissue Type Adherent Slough -Texture (Julia-wound Skin Appearance) Assessed -Moisture (Julia-wound Skin Appearance) Assessed -Color (Julia-wound Skin Appearance) Assessed -Temperature (Julia-wound Skin No Abnormality Appearance) (Pt Warm) -Ulcer Cleansing Soap and Water -Anesthetic Used 4% Lidocaine Solution -Wound Comment(s) scabbing #1 LLE Medial -Current Size (cm) - Length 2.2 -Current Size (cm) - Width 2.5 -Current Size (cm) - Depth 0.1 -Total Square Cm 5.50 -Exudate Amt Small -Exudate Type Serosanguineous -Wound Margin Distinct, Outline Attached -Granulation Amt Large (67-100%) -Granulation Quality Red -Texture (Julia-wound Skin Appearance) Assessed -Moisture (Julia-wound Skin Appearance) Assessed -Color (Julia-wound Skin Appearance) Assessed, Erythema -Temperature (Julia-wound Skin No Abnormality Appearance) (Pt Warm) -Ulcer Cleansing Soap and Water -Anesthetic Used 4% Lidocaine Solution Right Calf (cm) 46 Right Ankle (cm) 30 Left Calf (cm) 43 Left Ankle (cm) 30 WC - Nurse 2 - General Ulcer CM Notes Start: 05/25/23 11:43 Freq: Status: Active Protocol: Activity Type Activity Date Activity User E-sign Co-sign Detail Recorded Client Recorded Date Recorded By Document 05/30/23 15:17 JF Desktop 05/30/23 15:22 JF 05/30/23 15:17 Wound Center Nurse 2 #4 RLE Lateral -Time 15:17 -Correct Patient Yes -Correct Side, Site, Position Yes -Correct Procedure Yes -Procedure Performed Yes -Type of Procedure Debridement -Clinical Debridement Subcutaneous -Tissue Removed Subcutaneous -Tunneling No -Undermining/Tunneling No -Circular Undermining No -Wound/Ulcer Outcome Not Healed -Ulcer Cleansing Rinsed/ Irrigated with Saline -Foul Odor after Cleansing No -Bioengineered Tissue No -Bleeding Controlled with Pressure -Treatment Response Procedure Tolerated Well -Offloading No -Debridement - Subq, 1st 20sq cm No #2 LLE Posterior -Time 15:18 -Correct Patient Yes -Correct Side, Site, Position Yes -Correct Procedure Yes -Procedure Performed Yes -Type of Procedure Debridement -Clinical Debridement Subcutaneous -Tissue Removed Subcutaneous -Tunneling No -Undermining/Tunneling No -Circular Undermining No -Wound/Ulcer Outcome Not Healed -Ulcer Cleansing Rinsed/ Irrigated with Saline -Foul Odor after Cleansing No -Bioengineered Tissue No -Bleeding Controlled with Pressure -Treatment Response Procedure Tolerated Well -Offloading No -Debridement - Subq, 20sq cm No #3 RLE -Time 15:17 -Correct Patient Yes -Correct Side, Site, Position Yes -Correct Procedure Yes -Procedure Performed Yes -Type of Procedure Debridement -Clinical Debridement Subcutaneous -Tissue Removed Subcutaneous -Post Debridement (cm) - Length 7 -Post Debridement (cm) - Width 3.8 -Post Debridement (cm) - Depth 0.1 -Total Square (Post) (cm) 26.6 -Area of Debridement (cm) - Length 7 -Area of Debridement (cm) - Width 3.8 -Total Square (Area) (cm) 26.6 -Tunneling No -Undermining/Tunneling No -Circular Undermining No -Wound/Ulcer Outcome Not Healed -Ulcer Cleansing Rinsed/ Irrigated with Saline -Foul Odor after Cleansing No -Bioengineered Tissue No -Bleeding Controlled with Pressure -Treatment Response Procedure Tolerated Well -Offloading No -Debridement - Subq, 1st 20sq cm No #1 LLE Medial -Time 15:18 -Correct Patient Yes -Correct Side, Site, Position Yes -Correct Procedure Yes -Procedure Performed Yes -Type of Procedure Debridement -Clinical Debridement Subcutaneous -Tissue Removed Subcutaneous -Post Debridement (cm) - Length 10.0 -Post Debridement (cm) - Width 3.5 -Post Debridement (cm) - Depth 0.1 -Total Square (Post) (cm) 35.00 -Area of Debridement (cm) - Length 10 -Area of Debridement (cm) - Width 3.5 -Total Square (Area) (cm) 35.0 -Tunneling No -Undermining/Tunneling No -Circular Undermining No -Wound/Ulcer Outcome Not Healed -Ulcer Cleansing Rinsed/ Irrigated with Saline -Foul Odor after Cleansing No -Bioengineered Tissue No -Bleeding Controlled with Pressure -Treatment Response Procedure Tolerated Well -Offloading No -Debridement - Subq, 1st 20sq cm Yes -Debridement, SubQ, ea addt'l 20sq cm 3 or part thereof Pain Scale: 0-10 Numeric Is Patient Pain Free? Yes WC - Nurse 3 - General Ulcer D/C NN Start: 05/25/23 11:43 Freq: Status: Active Protocol: Activity Type Activity Date Activity User E-sign Co-sign Detail Recorded Client Recorded Date Recorded By Document 05/25/23 11:44 NV [id number] 05/25/23 11:58 NV Document 05/30/23 15:33 KW Desktop 05/30/23 15:35 KW 05/25/23 05/30/23 11:44 15:33 Wound Care Center Nurse 3 #4 RLE Lateral -Ulcer Cleansing Soap and Water -Primary Dressing Applied Promogran -Other Dressing adaptic -Promogran 3 #2 LLE Posterior -Ulcer Cleansing Soap and Water -Primary Dressing Applied Optilok 8x12 -Optilok 8x12 3 #3 RLE -Primary Dressing Applied NonAdherent Contact Layer, Other -Other Dressing cast padding #1 LLE Medial -Primary Dressing Applied NonAdherent Contact Layer, Other -Other Dressing casting pad BLE -Multi-Layered Wrap Application Unna Boot - Bilateral ($) Right -Multi-Layered Wrap Application Multi-Layer Comp - Right ($ ) Left -Multi-Layered Wrap Application Multi-Layer Comp - Left ($) Pain Scale: 0-10 Numeric Is Patient Pain Free? Yes Yes WC - Visit Discharge Discharge Condition Stable Stable Ambulatory Status Ambulatory Cane Transportation Private Auto Private Auto Medication Reconcilliation completed & No No provided to patient/care provider Clinical Summary of Care Provided Yes Yes Notes: nurse visit Assessment/Plan Assessment/Plan (1) Non-pressure chronic ulcer of other part of right lower leg with fat layer exposed: CODE(S): L97.812 - Non-pressure chronic ulcer of other part of right lowerleg with fat layer exposed PLAN: Patient was examined and evaluated. All findings were discussed with the patient. All questions were answered to the patient's satisfaction. Excisional debridement down to and including subcutaneous tissue of the right lower extremity full-thickness ulceration with a 5 mm dermal curette. Predebridement measurements are 6.8 x 3.5 x 0.1 cm. Postdebridement measurementis 7.0 x 3.8 x 0.1 cm. Excisional debridement down to and including subcutaneous tissue of the left lower extremity full-thickness ulceration with a 5 mm dermal curette. Predebridement measurement is 9.5 x 3.0 x 0.1 cm. Postdebridement measurement is 10.0 x 3.5 x 0.1 cm. The patient's bilateral ulceration was dressed with Xeroform and a multilayer compression bandage was applied to the bilateral lower extremity. Patient and his were instructed to leave the dressing clean dry and intact. They were educated that if they notice strikethrough they are to call the wound care center and follow-up for a nurse visit for multilayer compression dressing change. Patient is understanding of this. We begin authorization for skin graft substitute after a total of 4 weeks of treatment. Patient was also given order for venous and arterial studies. Follow-up at the wound care center with Dr. Camilo in 1 week. (2) Non-pressure chronic ulcer of other part of left lower leg with fat layer exposed: CODE(S): L97.822 - Non-pressure chronic ulcer of other part of left lower leg with fat layer exposed (3) Other specified peripheral vascular diseases: CODE(S): I73.89 - Other specified peripheral vascular diseases 05/30/23 4380 <Electronically signed by Last Camilo DPM> Cosigner Signature (if applicable): CC: ~ Signed [facility] Work Phone: [phone] History and physical note Author Marcus Barrientos [facility] May 21, 2023 2:51pm Note Date/Time May 21, 2023 2:39pm [facility] [address] [place] [address] H&P Exam - Wound Care 05/21/23 1432 MR#: [id number] Acct: [id number] Name: SOULEYMANE JOYCE Rep #:[id number] : 1940 82 From: [place] PCP: RUSS Hernandez Sta tus:REG RCR Location: History of Present Illness Date of Service: 05/21/23 Chief Complaint: Bilateral lower extremity ulcerations, swelling, edema, and lymphedema History of Wound: This is an 82-year-old male who presents with a longstanding history of swelling, edema, and lymphedema in his lower extremities. The patient has recently developed ulcerations in both lower extremities. These ulcerations began as blisters. They were associated with severe swelling, edema, and lymphedema. It appears as though the patient's presenting symptoms and manifestations are related to his daily habits. The patient sleeps in a chair. He does so due to sleep apnea. He is not active. He spends a large part of each day sitting. He requires a cane for ambulation. He denies a history of thrombophlebitis. His relates that the swelling and edema in his lower extremities was minimized after a week in the intensive care unit for treatment of other problems. This was likely due to the patient's confinement to bed, with his legs elevated to heart level. Patient had blood work performedon May 17, 2023, with results as follows: White blood count 10.6, hemoglobin 11.8, hematocrit 37.4, platelets 169,000, iron 62, TIBC 316, [id number]. The patient has a history of pre-existing medical problems and prior procedures, which are listed below. [facility] Medical History 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 Bilateral leg ulcer BPH (benign prostatic hyperplasia) Cardiac arrest (11/2015) COVID-19 virus detected (03/21/21) Dependent edema Essential (primary) hypertension GERD (gastroesophageal reflux disease) History of myocardial infarction History of upper gastrointestinal hemorrhage Hyperlipidemia Leg edema, left Leg edema, right Leg swelling Lymphedema Obesity Obesity (BMI 30-39.9) Obstructive sleep apnea Obstructive sleep apnea Paroxysmal atrial fibrillation Syncope and collapse Home Medications omega-3 fatty acids 1,000 mg capsule (Fish Oil Concentrate) 1,000 mg PO DAILY 09/30/20 [History Last Taken Unknown] cinnamon bark 500 mg capsule (Cinnamon) 500 mg PO DAILY 12/08/21 [History Last Taken Unknown] niacin 500 mg tablet 500 mg PO DAILY 12/08/21 [History Last Taken Unknown] ferrous sulfate 325 mg (65 mg iron) tablet (FeroSul) 325 mg PO TIDCM #0 tabs 05/02/22 [Rx Last Taken Unknown] pantoprazole 40 mg tablet,delayed release 40 mg PO QAM #90 tabs 08/17/22 [Rx Last Taken Unknown] atenolol 50 mg tablet 50 mg PO BID 02/09/23 [History Last Taken Unknown] levothyroxine 25 mcg tablet 25 mcg PO DAILY 02/09/23 [History Last Taken Unknown] spironolactone 25 mg tablet 25 mg PO DAILY #90 tabs 02/12/23 [Rx Last Taken Unknown] atorvastatin 80 mg tablet 80 mg PO QDAY #90 tabs 02/19/23 [Rx Last Taken Unknown] clopidogrel 75 mg tablet 75 mg PO DAILY #90 tabs 02/19/23 [Rx Last Taken Unknown] losartan 100 mg tablet 100 mg PO DAILY #90 tabs 02/19/23 [Rx Last Taken Unknown] nitroglycerin 0.4 mg sublingual tablet 0.4 mg sublingual Q5-15M PRN chest pain #25 tabs 02/19/23 [Rx Last Taken Unknown] furosemide 40 mg tablet 40 mg PO DAILY #90 tabs 03/22/23 [Rx Last Taken Unknown] famotidine 20 mg tablet 20 mg PO BID #60 tabs 05/17/23 [Rx Last Taken Unknown] sucralfate 1 gram tablet 1 g PO QAC #30 tabs 05/17/23 [Rx Last Taken Unknown] Allergy/AdvReac Type Severity Reaction Status Date / Time amiodarone AdvReac Intermediate Dizzy and Verified 03/22/23 13:53 GI upset, SOB and cough Family History Father CAD (coronary artery disease) Heart disease Hypertension Myocardial infarction Brother CAD (coronary artery disease) Heart disease Hypertension Myocardial infarction Mother CAD (coronary artery disease) Heart disease Hypertension Myocardial infarction Other Diabetes Surgical History History of coronary artery stent placement (12/07/15) History of hemorrhoidectomy (1972) History of right hip replacement (09/2013) History of total right hip replacement Social History household members: spouse Smoking Status: Former smoker how long ago did patient quit smoking: Quit in his 30s, smoked since teen (~ 15- 20 years), < 1 ppd day. alcohol intake: former substance use type: does not use caffeine: Yes Type: tea Number of servings: 2 Physical Exam Const alert, oriented x3, no apparent distress and well nourished Constitutional Narrative: The patient is obese. His BMI is 39. General Appearance: cooperative, comfortable, well kempt and well developed Orientation / Consciousness: awake, oriented to person, oriented to place and oriented to time Exam Limitations: no limitations HEENT normocephalic and head/scalp atraumatic Head and Scalp: normal to inspection, normocephalic and atraumatic External Ear: external ears normal Eyes PERRL and EOMs intact bilaterally General Eye: normal appearance of both eyes Resp normal respiratory effort, normal air movement, no retractions and no use of accessory muscles Effort and Inspection: able to speak in complete sentences Extremity no calf tenderness General Extremity: Negative for clubbing or cyanosis Skin Wound Narrative: Severe swelling, edema, and lymphedema are noted in the patient's lower extremities bilaterally. Multiple excoriations and ulcerations are noted in thelower extremities bilaterally. With each, a moderate amount of bioburden and nonviable tissue is noted. Dimensions are documented elsewhere. There is no obvious sign of infection or cellulitis. Very slight erythema is noted in the gaiter areas bilaterally, appearing to be inflammatory rather than cellulitic. Neuro oriented x3, CN's II-XII intact bilaterally, moves all extremities and no focal motor deficits Sensorium / Orientation: awake, alert, oriented to person, oriented to place andoriented to time Psych Appearance: grossly normal and appropriate Attitude: calm Activity / Motor Behavior: appropriate eye contact Speech: normal speech Mood & Affect: euthymic mood Thought Process: normal thought process Thought Content: normal thought content Attention / Concentration: attention grossly intact Debridement Note Debridement Note Wound debrided: Multiple ulcerations of the right gaiter area Laterality: Right Type of Debridement: Excisional debridement Anesthesia Used: 5% Lidocaine Gel Depth: Down to and including healthy tissue and in the subcutaneous layer Percentage of wound debrided: 100 Instrument Used: 5mm curette Tissue Removed: Bioburden and nonviable tissue Severity: Fat Layer Exposed Amount of bleeding with debridement: Mild Bleeding Controlled with: Compression and gauze Patient tolerated procedure: Patient tolerated procedure well Additional Wound Wound debrided: Multiple ulcerations of the left gaiter area Laterality: Left Type of Debridement: Excisional debridement Anesthesia Used: 5% Lidocaine Gel Depth: Down to and including healthy tissue and in the subcutaneous layer Percentage of wound debrided: 100 Instrument Used: 5mm curette Severity: Fat Layer Exposed Amount of bleeding with debridement: Mild Bleeding Controlled with: Compression and gauze Patient tolerated procedure: Patient tolerated procedure well Assessment/Plan Assessment/Plan (1) Bilateral leg ulcer: CODE(S): L97.919 - Non-pressure chronic ulcer of unspecified part of rightlower leg with unspecified severity; L97.929 - Non-pressure chronic ulcer of unspecified part of left lower leg with unspecified severity QUALIFIERS: Non-pressure ulcer stage: with fat layer exposed Qualified Code(s): L97.912 - Non-pressure chronic ulcer of unspecified part of right lower leg with fat layer exposed; L97.922 - Non-pressure chronic ulcer of unspecified part of left lower leg with fat layer exposed (2) Lymphedema: CODE(S): I89.0 - Lymphedema, not elsewhere classified (3) Leg edema, right: CODE(S): R60.0 - Localized edema (4) Leg edema, left: CODE(S): R60.0 - Localized edema (5) Leg swelling: CODE(S): M79.89 - Other specified soft tissue disorders (6) Dependent edema: CODE(S): R60.9 - Edema, unspecified (7) GERD (gastroesophageal reflux disease): CODE(S): K21.9 - Gastro-esophageal reflux disease without esophagitis (8) Essential (primary) hypertension: CODE(S): I10 - Essential (primary) hypertension (9) Anemia: CODE(S): D64.9 - Anemia, unspecified (10) 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: CODE(S): I25.10 - Atherosclerotic heart disease of viejas coronary artery without angina pectoris (11) Obesity (BMI 30-39.9): CODE(S): E66.9 - Obesity, unspecified (12) History of myocardial infarction: CODE(S): I25.2 - Old myocardial infarction (13) History of upper gastrointestinal hemorrhage: CODE(S): Z87.19 - Personal history of other diseases of the digestive system (14) Obstructive sleep apnea: CODE(S): G47.33 - Obstructive sleep apnea (adult) (pediatric) (15) History of total right hip replacement: CODE(S): Z96.641 - Presence of right artificial hip joint PLAN: Plan This is an 82-year-old male who has slept in a chair chronically for a long period of time. He is not active. He sits for long periods of time each day. Ambulation is limited, and is assisted by a cane. Additionally, the patient is obese. Graduated compression stockings have been previously dispensed, but the patient has failed to comply with their use. A lengthy discussion has been undertaken with the patient and his regarding the appropriate measures for management. Leg elevation has been advised. His legs are to be elevated to heart level, or higher. This is to be during both daytime and nighttime hours. Prolonged idle sitting has been discouraged. Activity has been encouraged, though it is unlikely that the patient will enhance his activity level to any significant degree. We are to implement the use of Promogran topically to the ulcerations in both lower extremities. Compression is to be implemented by use of a 3M 2 layer compression wrap to each lower extremity. Initially, these are to be applied with only moderate compression, to minimize the possibility of congestive heart failure due to enhanced venous return. Ultimately, with subsequent reapplications of the wraps, compression will be enhanced. The compression wraps will be changed twice weekly. The patient will return in 1 week for reevaluation. The patient has been encouraged to optimize his nutritional intake. Total time: 48 minutes 05/21/23 1451 <Electronically signed by Marcus Barrientos MD> Cosigner Signature (if applicable): CC: ~ Signed [facility] Work Phone: [phone] Evaluation note* Diagnosis Onset Date Resolution Status [id number] chronic Essential (primary) hypertension chronic Hyperlipidemia chronic History of coronary artery stent placement November 242015 resolved [facility] Work Phone: Evaluation note* Diagnosis Onset Date Resolution Status [id number] chronic Essential (primary) hypertension chronic Hyperlipidemia chronic [facility] Work Phone: Evaluation note* Diagnosis Onset Date Resolution Status Acute kidney injury acute Anemia acute Gastrointestinal bleeding ac mike High anion gap metabolic acidosis acute [facility] Work Phone: evaluation note* Diagnosis Onset Date Resolution Status Anemia acute UTI (urinary tract infection) acute Essential (primary) hypertension chronic Paroxysmal atrial fibrillation chronic Acute kidney injury resolved Gastrointestinal bleeding re solved Hemorrhagic shock resolved High anion gap metabolic acidosis resolved History of coronary artery stent placement November 242015 resolved Leukocytosis resolved Need for intravenous access resolved NSVT (nonsustained ventricular tachycardia) resolved Anemia acute [id number] chronic Essential (primary) hypertension chronic Hyperlipidemia chronic Paroxysmal atrial fibrillation [facility] Work Phone: evaluation note* Diagnosis Onset Date Resolution Status Anemia acute [id number] chronic Essential (primary) hypertension chronic Hyperlipidemia chronic Paroxysmal atrial fibrillation chronic Anemia chronic Diarrhea chronic GERD (gastroesophageal reflux disease) chronic [id number] chronic Essential (primary) hypertension chronic Hyperlipidemia chronic Paroxysmal atrial fibrillation chronic [facility] Work Phone: Evaluation note* Diagnosis Onset Date Resolution Status Anemia chronic Diarrhea chronic GERD (gastroesophageal reflux disease) chronic [id number] chronic Essential (primary) hypertension chronic Hyperlipidemia chronic Paroxysmal atrial fibrillation chronic Anemia [facility] Work Phone: Evaluation note* Diagnosis Onset Date Resolution Status [id number] chronic Essential (primary) hypertension chronic Hyperlipidemia chronic Paroxysmal atrial fibrillation chronic Anemia chronic [facility] Work Phone: Evaluation note* Diagnosis Onset Date Resolution Status Edema acute [id number] chronic Essential (primary) hypertension chronic Hyperlipidemia chronic Paroxysmal atrial fibrillation chronic Edema acute [id number] chronic Essential (primary) hypertension chronic Hyperlipidemia chronic Paroxysmal atrial fibrillation chronic Edema acute [id number] chronic Essential (primary) hypertension chronic Hyperlipidemia chronic Paroxysmal atrial fibrillation chronic Anemia chronic GERD (gastroesophageal reflux disease) chronic Paroxysmal atrial fibrillation chronic Anemia acute Bilateral leg ulcer acute Dependent edema acute History of myocardial infarction acute History of total right hip replacement acute History of upper gastrointestinal hemorrhage acute Leg edema, left acute Leg edema, right acute Leg swelling acute Lymphedema acute Obesity (BMI 30-39.9) acute Obstructive sleep apnea acut e [id number] chronic Essential (primary) hypertension chronic GERD (gastroesophageal reflux disease) [facility] Work Phone: Evaluation note* Diagnosis Onset Date Resolution Status Edema acute [id number] chronic Essential (primary) hypertension chronic Hyperlipidemia chronic Paroxysmal atrial fibrillation chronic Anemia chronic GERD (gastroesophageal reflux disease) chronic Paroxysmal atrial fibrillation chronic Anemia acute Bilateral leg ulcer acute Dependent edema acute History of myocardial infarction acute History of total right hip replacement acute History of upper gastrointestinal hemorrhage acute Leg edema, left acute Leg edema, right acute Leg swelling acute Lymphedema acute Obesity (BMI 30-39.9) acute Obstructive sleep apnea acut e [id number] chronic Essential (primary) hypertension chronic GERD (gastroesophageal reflux disease) chronic Other specified peripheral vascular diseases acute [id number] chronic [id number] [facility] Work Phone: Evaluation note* Diagnosis Onset Date Resolution Status Anemia chronic GERD (gastroesophageal reflux disease) chronic Paroxysmal atrial fibrillation chronic Anemia acute Bilateral leg ulcer acute Dependent edema acute History of myocardial infarction acute History of total right hip replacement acute History of upper gastrointestinal hemorrhage acute Leg edema, left acute Leg edema, right acute Leg swelling acute Lymphedema acute Obesity (BMI 30-39.9) acute Obstructive sleep apnea acut e [id number] chronic Essential (primary) hypertension chronic GERD (gastroesophageal reflux disease) chronic Other specified peripheral vascular diseases acute [id number] chronic [id number] chronic Other specified peripheral vascular diseases acute [id number] [facility] Work Phone: Evaluation noteNo assessment information available [facility] Work Phone: Reason for referral (narrative)No reason for [facility] Summary Purpose Family History No Family History Records Found Relationship Condition Age at Onset Recorded Date/T nickie Not Specified Diabetes mellitus Unknown father Coronary artery disease Unknown brother Coronary artery disease Unknown Relationship Condition Age at Onset Recorded Date/T nickie Not Specified Diabetes mellitus Unknown father Coronary artery disease Unknown Cardiac disease Unknown Hypertension Unknown Myocardial infarction Unknown brother Coronary artery disease Unknown mother Coronary artery disease Unknown Advance Directives No Advanced Directives Records Found Advance Directive Response Recorded Date/ Time Advance Directives No November 11:11pm Living Will No December 06, 2015 11:11pm Power of Cane Cutter No November 11:11pm Advance Directive Response Recorded Date/ Time Advance Directives No November 10:11pm Living Will No April 24 5:34pm Power of Cane Cutter No April 24, 2022 5:34pm Advance Directive Response Recorded Date/ Time Advance Directives No November 11:11pm Living Will No April 24 11:20pm Power of Cane Cutter No April 24, 2022 11:20pm Advance Directive Response Recorded Date/ Time Advance Directives No November 10:11pm Living Will No April 24 10:20pm Power of Cane Cutter No April 24, 2022 10:20pm Advance Directive Response Recorded Date/ Time Advance Directives No November 11:11pm Advance Directive Response Recorded Date/ Time Living Will No April 24 11:20pm Do you have a Healthcare Power of Cane Cutter? No April 24, 2022 11:20pm Advance Directives No November 11:11pm Advance Directive Response Recorded Date/ Time Living Will No April 24 11:20pm Do you have a Healthcare Power of Cane Cutter? No April 24, 2022 11:20pm Do you have a Healthcare Power of Cane Cutter? No August 24, 2024 3:54am Advance Directives No November 11:11pm Chief Complaint and Reason for Visit Chief Complaint moved from 8 per p t. NEED ORDER Reason for Visit [id number] Essential (primary) hypertension Hyperlipidemia History of coronary artery stent placement Chief Complaint 6 M FU Reason for Visit [id number] Essential (primary) hypertension Hyperlipidemia Chief Complaint ACUTE GI BLEED, ACUT E BLOOD LOSS ANEMIA Reason for Visit Acute kidney injury Anemia Gastrointestinal bleeding High anion gap metabolic acidosis Chief Complaint ACUTE GI BLEED, ACUT E BLOOD LOSS ANEMIA ACUTE GI BLEED, ACUTE BLOOD LOSS ANEMIA ACUTE GI BLEED, ACUTE BLOOD LOSS ANEMIA EKG ACUTE GI BLEED, ACUTE BLOOD LOSS ANEMIA ACUTE GI BLEED, ACUTE BLOOD LOSS ANEMIA ACUTE GI BLEED, ACUTE BLOOD LOSS ANEMIA ACUTE GI BLEED, ACUTE BLOOD LOSS ANEMIA Atrial fibrillation ACUTE GI BLEED, ACUTE BLOOD LOSS ANEMIA ACUTE GI BLEED, ACUTE BLOOD LOSS ANEMIA ACUTE GI BLEED, ACUTE BLOOD LOSS ANEMIA ACUTE GI BLEED, ACUTE BLOOD LOSS ANEMIA ACUTE GI BLEED, ACUTE BLOOD LOSS ANEMIA Amb Documentation ACUTE GI BLEED, ACUTE BLOOD LOSS ANEMIA ACUTE GI BLEED, ACUTE BLOOD LOSS ANEMIA ACUTE GI BLEED, ACUTE BLOOD LOSS ANEMIA ACUTE GI BLEED, ACUTE BLOOD LOSS ANEMIA ACUTE GI BLEED, ACUTE BLOOD LOSS ANEMIA AM EKG ACUTE GI BLEED, ACUTE BLOOD LOSS ANEMIA ACUTE GI BLEED, ACUTE BLOOD LOSS ANEMIA ACUTE GI BLEED, ACUTE BLOOD LOSS ANEMIA LAB WORK LABWORK S/P [facility] Reason for Visit Anemia UTI (urinary tract infection) Essential (primary) hypertension Paroxysmal atrial fibrillation Acute kidney injury Gastrointestinal bleeding Hemorrhagic shock High anion gap metabolic acidosis History of coronary artery stent placement Leukocytosis Need for intravenous access NSVT (nonsustained ventricular tachycardia) Anemia [id number] Essential (primary) hypertension Hyperlipidemia Paroxysmal atrial fibrillation Chief Complaint S/P [facility] H FU EORDER 3 M FU Reason for Visit Anemia [id number] Essential (primary) hypertension Hyperlipidemia Paroxysmal atrial fibrillation Anemia Diarrhea GERD (gastroesophageal reflux disease) [id number] Essential (primary) hypertension Hyperlipidemia Paroxysmal atrial fibrillation Chief Complaint H FU EORDER 3 M FU 3 MO FU Reason for Visit Anemia Diarrhea GERD (gastroesophageal reflux disease) [id number] Essential (primary) hypertension Hyperlipidemia Paroxysmal atrial fibrillation Anemia Chief Complaint 3 M FU 3 MO FU Reason for Visit [id number] Essential (primary) hypertension Hyperlipidemia Paroxysmal atrial fibrillation Anemia Chief Complaint Bilateral Leg edema, leaking fluid 2 W FU EORDER 6 M FU 6 MO FU wound Reason for Visit Edema [id number] Essential (primary) hypertension Hyperlipidemia Paroxysmal atrial fibrillation Edema [id number] Essential (primary) hypertension Hyperlipidemia Paroxysmal atrial fibrillation Edema [id number] Essential (primary) hypertension Hyperlipidemia Paroxysmal atrial fibrillation Anemia GERD (gastroesophageal reflux disease) Paroxysmal atrial fibrillation Anemia Bilateral leg ulcer Dependent edema History of myocardial infarction History of total right hip replacement History of upper gastrointestinal hemorrhage Leg edema, left Leg edema, right Leg swelling Lymphedema Obesity (BMI 30-39.9) Obstructive sleep apnea [id number] Essential (primary) hypertension GERD (gastroesophageal reflux disease) Chief Complaint 6 M FU 6 MO FU wound wound Reason for Visit Edema [id number] Essential (primary) hypertension Hyperlipidemia Paroxysmal atrial fibrillation Anemia GERD (gastroesophageal reflux disease) Paroxysmal atrial fibrillation Anemia Bilateral leg ulcer Dependent edema History of myocardial infarction History of total right hip replacement History of upper gastrointestinal hemorrhage Leg edema, left Leg edema, right Leg swelling Lymphedema Obesity (BMI 30-39.9) Obstructive sleep apnea [id number] Essential (primary) hypertension GERD (gastroesophageal reflux disease) Other specified peripheral vascular diseases [id number] Chief Complaint 6 MO FU wound wound wound Reason for Visit Anemia GERD (gastroesophageal reflux disease) Paroxysmal atrial fibrillation Anemia Bilateral leg ulcer Dependent edema History of myocardial infarction History of total right hip replacement History of upper gastrointestinal hemorrhage Leg edema, left Leg edema, right Leg swelling Lymphedema Obesity (BMI 30-39.9) Obstructive sleep apnea [id number] Essential (primary) hypertension GERD (gastroesophageal reflux disease) Other specified peripheral vascular diseases [id number] Other specified peripheral vascular diseases [id number] Chief Complaint Admit Date 1 Y August 07, 2024 2:27p m Chief Complaint Admit Date 1 Y FU August 07, 2024 2:27p m general illness August 24, 2024 3:52a m Reason for Visit Admit Date Atherosclerosis of [place] co 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 DATE CREATED AUTHOR AUTHOR'S ORGANIZ ATION 08/27/2024 [facility] Goals (unrecognized section and content) Goals may be documented in a n alternate sectionGoals may be documented in an alternate sectionGoals may be documented in an alternate sectionGoals may be documented in an alternate sectionGoals may be documented in an alternate sectionGoals may be documented in an alternate sectionGoals may be documented in an alternate sectionGoals may be documented in an alternate sectionGoals may be documented in an alternate sectionGoals may be documented in an alternate sectionGoals may be documented in an alternate sectionGoals may be documented in an alternate sectionGoals may be documented in an alternate sectionGoals may be documented in an alternate sectionGoals may be documented in an alternate section Care Teams (unrecognized sec tion and content) Team Status: Active Member Role Status Dates Shanon Caal Family Provider Active Shanon Caal LITHOGRAPH OPERATOR, LITHOGRAPH OPERATOR-C Primary Care Provider Active Team Status: Inactive Member Role Status Dates Shanon Caal LITHOGRAPH OPERATOR, LITHOGRAPH OPERATOR-C Primary Care Provider, Attending Provider, Referring Provider Active Team Status: Active Member Role Status Dates Shanon Caal LITHOGRAPH OPERATOR, LITHOGRAPH OPERATOR-C Primary Care Provider Active Dr. Daniele Hammer , DO Emergency Provider Active Dr. Liberty Dan MD Admit Provider, Attending Prov ider Active Dr. Sonia Vega MD Other Provider Active Dr. Enrike Peterson MD Other Provider Active Team Status: Active Member Role Status Dates Shanon Caal LITHOGRAPH OPERATOR, LITHOGRAPH OPERATOR-C Primary Care Provider Active Dr. Daniele Hammer , DO Emergency Provider Active Dr. Liberty Dan MD Admit Provider, Attending Provider, Other Provider Active Dr. Sonia Vega MD Other Provider Active Dr. Enrike Peterson MD Other Provider Active Team Status: Active Member Role Status Dates Shanon Caal LITHOGRAPH OPERATOR, LITHOGRAPH OPERATOR-C Primary Care Provider Active Dr. Bernardo Major , DO Attending Provider Active Dr. Diann Choi , DO Referring Provider Active Team Status: Active Member Role Status Dates Shanon Caal LITHOGRAPH OPERATOR, LITHOGRAPH OPERATOR-C Primary Care Provider Active Dr. Daniele Hammer , DO Emergency Provider Active Dr. Liberty Dan MD Admit Provider, Referring Provider, Other Provider Active Dr. Sonia Vega MD Other Provider Active Dr. Enrike Peterson MD Attending Provider, Other Provid er Active Dr. Brandon Silva , DO Other Provider Active Team Status: Active Member Role Status Dates Shanon Caal LITHOGRAPH OPERATOR, LITHOGRAPH OPERATOR-C Primary Care Provider Active Dr. Daniele Hammer , DO Emergency Provider Active Dr. Liberty Dan MD Admit Provider, Other Provider Active Dr. Sonia Vega MD Other Provider Active Dr. Enrike Peterson MD Other Provider Active Dr. Brandon Silva , DO Attending Provider, Other Pro vider Active Team Status: Active Member Role Status Dates Shanon Caal LITHOGRAPH OPERATOR, LITHOGRAPH OPERATOR-C Primary Care Provider Active Dr. Daniele Hammer , DO Emergency Provider Active Dr. Liberty Dan MD Admit Provider, Other Provider Active Dr. Sonia Vega MD Other Provider Active Dr. Enrike Peterson MD Other Provider Active Dr. Brandon Silva , DO Other Provider Active Dr. Bernardo Major , DO Attending Provider Active Dr. Diann Choi , DO Referring Provider Active Team Status: Active Member Role Status Dates Shanon Caal LITHOGRAPH OPERATOR, LITHOGRAPH OPERATOR-C Primary Care Provider Active Dr. Daniele Hammer , DO Emergency Provider Active Dr. Liberty Dan MD Admit Provider, Other Provider Active Dr. Sonia Vega MD Attending Provider, Other Pro vider Active Dr. Enrike Peterson MD Other Provider Active Dr. Brandon Silva , DO Other Provider Active Dr. Diann Choi , DO Referring Provider Active Team Status: Active Member Role Status Dates Shanon Caal LITHOGRAPH OPERATOR, LITHOGRAPH OPERATOR-C Primary Care Provider Active Dr. Daniele Hammer , DO Emergency Provider Active Dr. Liberty Dan MD Admit Provider, Other Provider Active Dr. Sonia Vega MD Other Provider Active Dr. Enrike Peterson MD Attending Provider, Other Provid er Active Dr. Brandon Silva , DO Other Provider Active Team Status: Active Member Role Status Dates Shanon Caal LITHOGRAPH OPERATOR, LITHOGRAPH OPERATOR-C Primary Care Provider Active Dr. Papa Morgan MD Attending Provider Active Team Status: Active Member Role Status Dates Shanon Caal LITHOGRAPH OPERATOR, LITHOGRAPH OPERATOR-C Primary Care Provider Active Dr. Daniele Hammer , DO Emergency Provider Active Dr. Liberty Dan MD Admit Provider, Other Provider Active Dr. Brandon Silva , DO Attending Provider, Other Pro vider Active Dr. Sonia Vega MD Other Provider Active Dr. Enrike Peterson MD Other Provider Active Dr. Papa Morgan MD Other Provider Active Team Status: Active Member Role Status Dates Shanon Caal LITHOGRAPH OPERATOR, LITHOGRAPH OPERATOR-C Primary Care Provider Active Dr. Daniele Hammer , DO Emergency Provider Active Dr. Liberty Dan MD Admit Provider, Other Provider Active Dr. Brandon Sivla , DO Other Provider Active Dr. Sonia Vega MD Other Provider Active Dr. Enrike Peterson MD Attending Provider, Other Provid er Active Dr. Papa Morgan MD Other Provider Active Team Status: Active Member Role Status Dates Shanon Caal LITHOGRAPH OPERATOR, LITHOGRAPH OPERATOR-C Primary Care Provider Active Dr. Daniele Hammer , DO Emergency Provider Active Dr. Liberty Dan MD Admit Provider, Other Provider Active Dr. Brandon Silva , DO Other Provider Active Dr. Sonia Vega MD Other Provider Active Dr. Enrike Peterson MD Other Provider Active Dr. Papa Morgan MD Other Provider Active Dr. Bernardo Major , DO Attending Provider Active Dr. Diann Choi , DO Referring Provider Active Team Status: Active Member Role Status Dates Shanon Caal LITHOGRAPH OPERATOR, LITHOGRAPH OPERATOR-C Primary Care Provider Active Evaristo Suresh LITHOGRAPH OPERATOR, LITHOGRAPH OPERATOR-C Attending Provider Active Team Status: Active Member Role Status Dates Shanon Caal LITHOGRAPH OPERATOR, LITHOGRAPH OPERATOR-C Primary Care Provider Active Dr. Daniele Hammer , DO Emergency Provider Active Dr. Liberty Dan MD Admit Provider, Other Provider Active Dr. Brandon Silva , DO Other Provider Active Dr. Sonia Vega MD Other Provider Active Dr. Enrike Peterson MD Other Provider Active Dr. Papa Morgan MD Attending Provider, Other Provide r Active Team Status: Active Member Role Status Dates Shanon Caal LITHOGRAPH OPERATOR, LITHOGRAPH OPERATOR-C Primary Care Provider Active Dr. Daniele Hammer , DO Emergency Provider Active Dr. Liberty Dan MD Admit Provider, Other Provider Active Dr. Sonia Vega MD Other Provider Active Dr. Enrike Peterson MD Other Provider Active Dr. Papa Morgan MD Other Provider Active Dr. Diann Choi , DO Attending Provider, Other Provide r Active Dr. Brandon Silva , DO Other Provider Active Team Status: Active Member Role Status Dates Shanon Caal LITHOGRAPH OPERATOR, LITHOGRAPH OPERATOR-C Primary Care Provider Active Dr. Daniele Hammer , DO Emergency Provider Active Dr. Liberty Dan MD Admit Provider, Other Provider Active Dr. Sonia Vega MD Other Provider Active Dr. Enrike Peterson MD Other Provider Active Dr. Papa Morgan MD Other Provider Active Dr. Diann Choi , DO Referring Provider, Other Provide r Active Dr. Brandon Silva , DO Other Provider Active Dr. Bernardo Major , DO Attending Provider Active Team Status: Active Member Role Status Dates Shanon Caal LITHOGRAPH OPERATOR, LITHOGRAPH OPERATOR-C Primary Care Provider Active Dr. Daniele Hammer , DO Emergency Provider Active Dr. Liberty Dan MD Admit Provider, Other Provider Active Dr. Sonia Vega MD Other Provider Active Dr. Enrike Peterson MD Other Provider Active Dr. Papa Morgan MD Other Provider Active Dr. Diann Choi , DO Attending Provider, Other Provide r Active Dr. Brandon Silva , DO Other Provider Active Dr. Souleymane Stearns MD Other Provider Active Team Status: Active Member Role Status Dates Shanon Caal NP, LITHOGRAPH OPERATOR-C Primary Care Provider Active Dr. Daniele Hammer , DO Emergency Provider Active Dr. Liberty Dan MD Admit Provider, Other Provider Active Dr. Sonia Vega MD Other Provider Active Dr. Enrike Peterson MD Other Provider Active Dr. Papa Morgan MD Other Provider Active Dr. Diann Choi , DO Referring Provider, Other Provide r Active Dr. Brandon Silva , DO Other Provider Active Dr. Souleymane Stearns MD Other Provider Active Dr. Bernardo Major , DO Attending Provider Active Team Status: Active Member Role Status Dates Shanon Caal NP, LITHOGRAPH OPERATOR-C Primary Care Provider Active Dr. Angelia Mack MD Attending Provider Activ e Dr. Liberty Dan MD Referring Provider Active Team Status: Active Member Role Status Dates Shanon Braden Faulk LITHOGRAPH OPERATOR, LITHOGRAPH OPERATOR-C Primary Care Provider Active Dr. Angelia Mack MD Attending Provider Activ e Dr. Enrike Peterson MD Referring Provider Active Team Status: Active Member Role Status Dates Shanon Caal LITHOGRAPH OPERATOR, LITHOGRAPH OPERATOR-C Primary Care Provider Active Dr. Papa Morgan MD Attending Provider, Referring Pro vider Active Team Status: Inactive Member Role Status Dates Shanon Caal LITHOGRAPH OPERATOR, LITHOGRAPH OPERATOR-C Primary Care Provider, Referring Provider Active Bette Lebron PA, PA Attending Provider Active Team Status: Inactive Member Role Status Dates Shanon Caal LITHOGRAPH OPERATOR, LITHOGRAPH OPERATOR-C Primary Care Provider Active Dr. Daniele Hammer DO Emergency Provider Active Dr. Liberty Dan MD Admit Provider, Other Provider Active Dr. Sonia Vega MD Other Provider Active Dr. Enrike Peterson MD Other Provider Active Dr. Papa Morgan MD Other Provider Active Dr. Diann Choi DO Attending Provider Active Dr. Brandon Silva DO Other Provider Active Dr. Souleymane Stearns MD Other Provider Active Team Status: Active Member Role Status Dates Shanon Caal LITHOGRAPH OPERATOR, LITHOGRAPH OPERATOR-C Primary Care Provider Active Shankar MOCTEZUMA Attending Provider Active Team Status: Inactive Member Role Status Dates Shanon Caal LITHOGRAPH OPERATOR, LITHOGRAPH OPERATOR-C Primary Care Provider Active Bette Lebron PA, PA Attending Provider, Referr ing Provider Active Team Status: Inactive Member Role Status Dates Shanon Caal LITHOGRAPH OPERATOR, LITHOGRAPH OPERATOR-C Primary Care Provider, Referring Provider Active Vanessa Varghese LITHOGRAPH OPERATOR, LITHOGRAPH OPERATOR-C Attending Provider Active Team Status: Inactive Member Role Status Dates Shanon Caal LITHOGRAPH OPERATOR, LITHOGRAPH OPERATOR-C Primary Care Provider, Attending Provider Active Team Status: Inactive Member Role Status Dates Shanon Caal LITHOGRAPH OPERATOR, LITHOGRAPH OPERATOR-C Primary Care Provider Active Vanessa Varghese LITHOGRAPH OPERATOR, LITHOGRAPH OPERATOR-C Attending Provider, Referrin g Provider Active Team Status: Inactive Member Role Status Dates Shanon Caal LITHOGRAPH OPERATOR, LITHOGRAPH OPERATOR-C Primary Care Provider Active Vanessa Varghese LITHOGRAPH OPERATOR, LITHOGRAPH OPERATOR-C Attending Provider Active Team Status: Inactive Member Role Status Dates Shanon Caal LITHOGRAPH OPERATOR, LITHOGRAPH OPERATOR-C Primary Care Provider, Referring Provider Active Dr. Bernardo Major DO Attending Provider Active Team Status: Inactive Member Role Status Dates Shanon Caal LITHOGRAPH OPERATOR, LITHOGRAPH OPERATOR-C Primary Care Provider, Referring Provider Active Evaristo Suresh LITHOGRAPH OPERATOR, LITHOGRAPH OPERATOR-C Attending Provider Active Team Status: Inactive Member Role Status Dates Shanon Caal LITHOGRAPH OPERATOR, LITHOGRAPH OPERATOR-C Primary Care Provider Active Evaristo Suresh LITHOGRAPH OPERATOR, LITHOGRAPH OPERATOR-C Attending Provider, Referring Pro vider Active Team Status: Inactive Member Role Status Dates Shanon Caal LITHOGRAPH OPERATOR, LITHOGRAPH OPERATOR-C Primary Care Provider Active Dr. Bernardo Major , Attending Provider, Referring Provider Active Team Status: Inactive Member Role Status Dates Shanon Caal LITHOGRAPH OPERATOR, LITHOGRAPH OPERATOR-C Primary Care Provider Active Dr. Bernardo Major DO Referring Provider Active Dr. Last Camilo DPM Attending Provider Active Team Status: Active Member Role Status Dates Shanon Caal LITHOGRAPH OPERATOR, LITHOGRAPH OPERATOR-C Primary Care Provider Active Dr. Bernardo Major DO Referring Provider Active Dr. Last Camilo DPM Attending Provider Active Team Status: Active Member Role Status Dates Shanon Caal LITHOGRAPH OPERATOR, LITHOGRAPH OPERATOR-C Primary Care Provider Active Team Status: Inactive Member Role Status Dates Shanon Caal LITHOGRAPH OPERATOR, LITHOGRAPH OPERATOR-C Primary Care Provider Active Start: July 14, 2024 End: July 14, 2024 Shanon Caal LITHOGRAPH OPERATOR, LITHOGRAPH OPERATOR-C Attending Provider Ac tive Start: July 14, 2024 End: July 14, 2024 Shanon Caal LITHOGRAPH OPERATOR, LITHOGRAPH OPERATOR-C Referring Provider Ac tive Start: July 14, 2024 End: July 14, 2024 Team Status: Active Member Role Status Dates Shanon Caal LITHOGRAPH OPERATOR, LITHOGRAPH OPERATOR-C Primary Care Provider Active Start: July 15, 2024 Shanon Caal LITHOGRAPH OPERATOR, LITHOGRAPH OPERATOR-C Attending Provider Ac tive Start: July 15, 2024 Shanon Caal LITHOGRAPH OPERATOR, LITHOGRAPH OPERATOR-C Referring Provider Ac tive Start: July 15, 2024 Team Status: Inactive Member Role Status Dates Shanon Caal LITHOGRAPH OPERATOR, LITHOGRAPH OPERATOR-C Primary Care Provider Active Start: July 15, 2024 End: July 15, 2024 Shanon Caal LITHOGRAPH OPERATOR, LITHOGRAPH OPERATOR-C Attending Provider Ac tive Start: July 15, 2024 End: July 15, 2024 Shanon Caal LITHOGRAPH OPERATOR, LITHOGRAPH OPERATOR-C Referring Provider Ac tive Start: July 15, 2024 End: July 15, 2024 Team Status: Inactive Member Role Status Dates Shanon Caal LITHOGRAPH OPERATOR, LITHOGRAPH OPERATOR-C Primary Care Provider Active Start: August 07, 2024 End: August 07, 2024 Shanon Caal NP, LITHOGRAPH OPERATOR-C Referring Provider Ac tive Start: August 07, 2024 End: August 07, 2024 Dr. Papa Morgan MD Attending Provider Active S tart: August 07, 2024 End: August 07, 2024 Team Status: Inactive Member Role Status Dates Shanon Caal LITHOGRAPH OPERATOR, LITHOGRAPH OPERATOR-C Primary Care Provider Active Start: August 24, 2024 End: August 24, 2024 Dr. Juancho Valle , DO Emergency Provider Active Start: August 24, 2024 End: August 24, 2024 FOR RECORDS PERTAINING TO PATIENTS WHO ARE [...] BE BASED ON THE PRIMARY CLINICAL RECORDS. [employer] [facility]. provides no warranty or guarantee of the accuracy or completeness of information in this document.
--- NOTE | 2024-09-03 07:27 | RAD_ITS ---
PROCEDURE: CHEST PA AND LATERAL 09/03/2024 REASON FOR EXAM: GENERAL MALAISE Weakness. Chills. TECHNIQUE: Frontal and lateral views of the chest. COMPARISON: Prior study dated August 24, 2024. FINDINGS: Hardware: EKG electrodes are seen. Heart: Mild cardiomegaly. Mediastinum: Tortuosity of the descending thoracic aorta. Lungs: Stable pleural-parenchymal changes at the left lung base suggestive of scarring. Bones: Degenerative changes are identified within the thoracic spine. RAD/Chest PA and Lateral IMPRESSION: Stable pleural-parenchymal changes at the left lung base suggestive of scarring . Reading Location: [facility]
--- NOTE | 2024-09-03 07:27 | EKG12_ITS ---
Test Reason : Blood Pressure : */* mmHG Vent. Rate : 66 BPM Atrial Rate : * BPM P-R Int : * ms QRS Dur : 88 ms QT Int : 418 ms P-R-T Axes : * 26 72 degrees QTcB Int : 438 ms Atrial fibrillation with premature ventricular or aberrantly conducted complexes Abnormal ECG Confirmed by Honorio Santiago ([id number]), news video editor FREDERICK QUINTANILLA ([id number]) on 09/04/2024 6:53:22 AM Referred By: Confirmed By: Honorio Santiago
--- NOTE | 2024-09-03 07:32 | ED.VIS.CHEST ---
HPI History of Present Illness Chief Complaint: Palpitations Narrative Narrative: Chief complaint and HPI: General Malaise. History taken by patient as well as medical record. 83-year-old male with past medical history of proximal atrial fibs, hypothyroidism, HLD, HTN presents for evaluation of general malaise. Patient was seen in our emergency department for same complaint on 08/24/2024. Patient had a workup that was relatively unremarkable. He had an EKG that showed atrial flutter with variable block at a rate of 50 bpm. Patient was discussed with operating room scheduler to recommended the patient to being transferred for EP for possible pacemaker. Patient states that he was transferred to [facility] where he is monitored for several days. States that he was placed on Eliquis and ultimately discharged home. Patient states his symptoms have not improved. Denies any fever, chills, shortness of breath, chest pain abdominal pain, nausea, vomiting, dysuria. Review of systems: See HPI Medications: As listed on the chart Allergies: As listed on the chart PFSH: Per chart Vital signs: As listed on the chart. Reviewed. Physical exam: Gen: A&O x3, NAD Head: Normocephalic, atraumatic Eyes: No sclera icterus, conjunctiva clear ENT: Moist mucous membranes Neck: Trachea midline, No JVD CV: Regular rate, irregular rhythm, no murmurs, minimal bilateral pitting peripheral edema Resp: Lungs CTA BL, no w/r/c GI: Abd soft, non-distended, non-tender, no r/r/g Musc: Full ROM, no deformity Skin: Warm, dry Neuro: Alert, oriented, grossly intact, sensation intact Psych: Cooperative, appropriate mood and affect [facility] Medical History (Updated 09/03/24 @ 10:[address] 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 GERD (gastroesophageal reflux disease) Syncope and collapse Cardiac arrest (11/2015) Home Medications ?Medication ?Instructions ?Recorded ?Last Taken ?Type cinnamon bark 500 mg capsule 500 mg PO DAILY 12/08/21 Unknown History (Cinnamon) levothyroxine 25 mcg tablet 25 mcg PO DAILY 02/09/23 Unknown History nitroglycerin 0.4 mg sublingual 0.4 mg sublingual Q5-15M PRN chest 02/19/23 Unknown Rx tablet pain #25 tabs cholecalciferol (vitamin D3) 50 50 mcg PO DAILY 07/26/23 Unknown History mcg (2,000 unit) capsule furosemide 40 mg tablet 40 mg PO DAILY #90 tabs 04/07/24 Unknown Rx famotidine 20 mg tablet 20 mg PO BID #60 tabs 07/10/24 Unknown Rx apixaban 5 mg tablet (Eliquis) 5 mg PO BID 09/03/24 Unknown History atorvastatin 80 mg tablet 80 mg PO QHS 09/03/24 Unknown History clopidogrel 75 mg tablet 75 mg PO DAILY 09/03/24 Unknown History omega 1-lab-rhb-fish oil 1,200 mg 1 cap PO BID 09/03/24 Unknown History (144 mg-216 mg) capsule (Fish Oil) Allergy/AdvReac Type Severity Reaction Status Date / Time No Known Allergies Allergy Verified 09/03/24 06:17 Family History Father CAD (coronary artery disease) Heart disease Hypertension Myocardial infarction Brother CAD (coronary artery disease) Heart disease Hypertension Myocardial infarction Mother CAD (coronary artery disease) Heart disease Hypertension Myocardial infarction Other Diabetes Surgical History History of total right hip replacement History of coronary artery stent placement (12/07/15) History of right hip replacement (09/2013) History of hemorrhoidectomy (1972) Social History household members: spouse Smoking Status: Former smoker how long ago did patient quit smoking: Quit in his 30s, smoked since teen (~ 15-20 years), < 1 ppd day. alcohol intake: former substance use type: does not use caffeine: Yes Type: tea Number of servings: 2 EXAM Physical Exam Const Vital Signs: 09/03/24 06:17 09/03/24 06:20 09/03/24 06:25 Temperature 97.6 F L 97.6 F L Temperature Source Oral Oral Pulse Rate 89 89 Respiratory Rate 19 H 19 H Respiratory Effort Normal Blood Pressure 159/81 H 159/81 H Blood Pressure Mean 107 107 Pulse Ox 98 98 Oxygen Delivery Method Room Air Room Air 09/03/24 06:39 09/03/24 07:17 09/03/24 08:00 Temperature Temperature Source Pulse Rate 79 61 61 Respiratory Rate 16 14 14 Respiratory Effort Blood Pressure 135/70 H 140/63 H 146/62 H Blood Pressure Mean 91 88 90 Pulse Ox 97 99 99 Oxygen Delivery Method 09/03/24 09:00 09/03/24 10:00 Temperature Temperature Source Pulse Rate 63 63 Respiratory Rate 14 14 Respiratory Effort Blood Pressure 140/63 H 142/64 H Blood Pressure Mean 88 90 Pulse Ox 99 99 Oxygen Delivery Method MDM MDM MDM Narrative Medical decision making narrative: 83-year-old male with past medical history of proximal atrial fibrillation, hypothyroidism, HLD, HTN presents for evaluation of general malaise. Seen our emergency department on 08/24/2024 for same complaint. Differential diagnosis includes but is not limited to symptomatic atrial fibrillation, hypothyroidism, electrolyte abnormality, REMY, UTI, ACS. Laboratory workup ordered including chest x-ray. CBC without leukocytosis or anemia. Patient has baseline thrombocytopenia. INR unremarkable. CMP without significant electrolyte abnormality. Patient has baseline renal insufficiency. Mild AST transaminitis at 43. Patient not having any abdominal pain. Magnesium mildly elevated at 2.3. Troponin 96 and 89. Previous troponin on 08/24 was 90. Suspect this is probably the patient's baseline. Patient not endorsing any chest pain. TSH unremarkable. UA shows mild pyuria without bacteria. Patient not endorsing any UTI symptoms. Will get urine culture. At this point in time, no ear etiology to explain the patient's symptoms. BNP elevated 2236. Patient is on Lasix. Not overtly fluid overloaded on physical exam or chest x-ray. Will hold off on additional Lasix at this time. His vitals have remained stable here in the emergency department except for some mild hypertension. No clear etiology for patient's symptoms at this time. Given the elevation of his troponins and BNP with previous concern for need of pacemaker, I did speak with cardiology. Patient was discussed with Dr. Santiago. Agrees that troponin elevation is likely his baseline. BNP likely elevated due to his chronic atrial fibrillation. No change in medicines at this time. Follow-up with cardiology. Patient and are updated of all the results and the plan for discharge home. Recommend following up with PCP as well as cardiology. Return back to the ED if symptoms change or worsen. Patient confirmed understanding of the plan. EKG: Interpreted by me/EM physician: EKG shows atrial fibrillation with PVCs. No acute ischemic changes. Heart rate 66. Diagnostic: Interpreted by me/EM physician: Chest x-ray shows mild cardiology and chronic lung changes seen on previous chest x-rays. No pneumonia, large effusion, pneumothorax. Per radiology stable pleural-parenchymal changes at the left lung base suggestive of scarring. Impression: 1. General Malaise 2. History of atrial fibrillation 3. Chronic renal insufficiency 4. Chronic thrombocytopenia Lab Data Labs: Laboratory Results - last 24 hr 09/03/24 09/03/24 09/03/24 06:24 08:14 09:00 WBC 10.2 RBC 4.03 L Hgb 13.1 Hct 39.1 L MCV 97.0 H MCH 32.5 H MCHC 33.5 RDW Std Deviation 51.5 H RDW Coeff of Maura 14.6 Plt Count 148 L MPV 11.6 Immature Gran % (Auto) 0.500 Neut % (Auto) 54.3 Lymph % (Auto) 34.7 [place] % (Auto) 8.9 Eos % (Auto) 1.1 Baso % (Auto) 0.5 Absolute Neuts (auto) 5.6 Absolute Lymphs (auto) 3.55 Nucleated RBC % 0 PT 17.1 H INR 1.4 APTT 39.5 H Sodium 140 Potassium 4.5 Chloride 102 Carbon Dioxide 22.2 Anion Gap 16 H BUN 19 Creatinine 1.37 H Estim Creat Clear Calc 48.96 L Est GFR (MDRD) Non-Af 51 L BUN/Creatinine Ratio 13.9 Glucose 130 H Calcium 9.6 Magnesium 2.3 H Total Bilirubin 0.67 AST 43 H ALT 18 Alkaline Phosphatase 81 Troponin T High Sens 96 H* D Troponin T Hi Sens 2 Hr 89 H* NT pro BNP II 2236 H Total Protein 7.5 Albumin 4.1 Globulin 3.5 Albumin/Globulin Ratio 1.2 TSH 1.880 Free T4 1.50 H Urine Color Yellow Urine Clarity Clear Urine pH 6.0 Ur Specific [place] 1.015 Urine Protein 15 H Urine Glucose (UA) Normal Urine Ketones Negative Urine Occult Blood 10 H Urine Nitrite Negative Urine Bilirubin Negative Urine Urobilinogen Normal Ur Leukocyte Esterase 100 H Urine RBC 0-5 SEEN Urine WBC 5-10 SEEN Ur Squamous Epith Cells 0-5 SEEN Urine Bacteria 0 SEEN Urine Mucus 0 SEEN Radiography Diagnostic Testing: Clinical Impression(s) from Imaging Studies Chest X-Ray 09/03/24 07:27 IMPRESSION: Stable pleural-parenchymal changes at the left lung base suggestive of scarring. Reading Location: [place] [id number] Discharge Plan Triage Chief Complaint: Palpitations ED Provider: Jaime Munoz Dx/Rx/DC Orders Clinical Impression: Malaise and fatigue Instructions: ED Weakness Uncertain Cause Prescriptions: No Action cinnamon bark [Cinnamon] 500 mg capsule 500 mg PO DAILY levothyroxine 25 mcg tablet 25 mcg PO DAILY nitroglycerin 0.4 mg tablet, sublingual 0.4 mg SUBLINGUAL Q5-15M PRN (Reason: chest pain) Qty: 25 3RF cholecalciferol (vitamin D3) 50 mcg (2,000 unit) capsule 50 mcg PO DAILY atorvastatin 80 mg tablet 80 mg PO QHS clopidogrel 75 mg tablet 75 mg PO DAILY Eliquis 5 mg tablet 5 mg PO BID omega 2-bgw-mqg-fish oil [Fish Oil] 1,200 (144-216) mg capsule 1 cap PO BID furosemide 40 mg tablet 40 mg PO DAILY Qty: 90 3RF famotidine 20 mg tablet 20 mg PO BID Qty: 60 5RF Primary Care Provider: Rjaesh Caal NP Referrals: Papa Morgan MD [Med Staff - Active Staff] - 3-5 Days Rajesh Caal NP, [employer] [employer] [Primary Care Provider] - 3-5 Days Activity Restrictions/Additional Instructions: Follow-up with primary care physician and cardiology. At this point in time, no clear reason for your symptoms. Return back to the ED if symptoms change or worsen. Print Language: Khmer Disposition Disposition: Home, Self Care
[2024-09-03 07:53] LABS: Absolute Lymphocyte Count 3.55 X10^3/uL (0.83-4.51); Absolute Neutrophil Count 5.6 X10^3/uL (2.0-7.7); Basophil# 0.05 X10^3/uL; Basophil% 0.5 % (0-1); Eosinophil# 0.11 X10^3/uL; Eosinophils% 1.1 % (0-5); Hematocrit 39.1 % (40-54); Hemoglobin 13.1 g/dL (13.0-16.5); Lymphocyte # 3.55 X10^3/ul (0.83-4.51); Lymphocyte % 34.7 % (19-41); Mean Corp Hgb Conc 33.5 g/dL (32-36); Mean Corpuscular Hgb 32.5 pg (27.0-32.0); Mean Platelet Vol. 11.6 fl (6.2-12.0); Monocyte# 0.91 X10^3/uL; Monocyte% 8.9 % (0-10); NRBC Flagged by Analyzer 0 % (0-5); Neutrophil # 5.55 X10^3/uL (2.7-7.7); Neutrophil % 54.3 % (47-70); Platelet Count 148 K/mm3 (150-450); RBC Distribution Width CV 14.6 % (11.6-14.6); RBC Distribution Width SD 51.5 fl (35.1-43.9); Red Blood Count 4.03 M/mm3 (4.6-6.2); White Blood Count 10.2 K/mm3 (4.4-11.0)
[2024-09-03 08:03] LABS: International Normalized Ratio 1.4; Prothrombin Time (Protime)PT. 17.1 SECONDS (11.7-14.9)
[2024-09-03 08:05] LABS: Partial Thromboplast Time 39.5 Seconds (24.1-36.2)
[2024-09-03 08:35] LABS: Bacteria 0 SEEN /hpf (None Seen); Mucous, Urine 0 SEEN /hpf (<or=2+)
[2024-09-03 08:48] LABS: Color, Urine Yellow (Yellow); Glucose, Dipstick Normal (Normal); Ketone-Dipstick Negative (Negative); Leukocyte Esterase-Dipstick 100 /ul (Negative); Nitrite-Dipstick Negative (Negative); Occult Blood-Urine 10 /ul (Negative); Protein-Dipstick 15 mg/dl (Negative); Specific Gravity, Urine 1.015 (1.002-1.030); Urine Bilirubin Dipstick Negative (Negative); Urine Clarity Clear (Clear); Urine Urobilinogen Normal (Normal)
[2024-09-03 08:57] LABS: Red Blood Cells-Urine 0-5 SEEN /hpf (0-5); Squamous Epithelial Cells - UA 0-5 SEEN /hpf (0-5); White Blood Cells 5-10 SEEN /hpf (0-5)
[2024-09-03 09:24] LABS: Magnesium 2.3 mg/dL (1.5-2.2)
[2024-09-03 09:32] LABS: ALB/GLOB Ratio 1.2 RATIO (0.9-2.4); AST(SGOT) 43 U/L (<=37); Alanine Aminotransfer ALT/SGPT 18 U/L (<=46); Albumin, Serum 4.1 g/dL (3.4-4.8); Alkaline Phosphatase 81 U/L (40-129); Anion Gap 16 (5-15); BUN 19 mg/dL (4-19); BUN/Creat Ratio 13.9 RATIO (10-20); Calcium,Total 9.6 mg/dL (7.6-11.0); Carbon Dioxide 22.2 mmol/L (21.0-32.0); Chloride 102 mmol/L (98-108); Creatinine, Serum 1.37 mg/dL (0.70-1.20); EST Glomerular Filtration Rate 51 (>60); Estimated Creatinine Clearance 48.96 ml/min (50-250); Globulin 3.5 g/dL (2.2-4.2); Glucose 130 mg/dL (70-99); Potassium 4.5 mmol/L (3.3-5.1); Pro- Brain NATRIURETIC PEPTIDE 2236 pg/mL (<=1800); Protein, Total 7.5 g/dL (5.9-8.4); Sodium Level 140 mmol/L (133-145); Total Bilirubin 0.67 mg/dL (0.00-1.30); Troponin T High Sensitivity 96 ng/L (<=22)
[2024-09-03 09:34] LABS: Troponin T High Sens 2 HR 89 ng/L (<=22)
== END 2024-09-03 11:22 | disposition home or self-care (01) ==
PROVIDERS: Emergency Provider Surgery; PCP Nurse Practitioner Family; Visit Provider Surgery
DX: I48.0 Paroxysmal atrial fibrillation (principal); R53.81 Other malaise; R53.83 Other fatigue; D69.6 Thrombocytopenia, unspecified; I12.9 Hypertensive chronic kidney disease with stage 1 through stage 4 chronic kidney disease, or unspecified chronic kidney disease; N18.9 Chronic kidney disease, unspecified; I25.10 Atherosclerotic heart disease of native coronary artery without angina pectoris; Z95.5 Presence of coronary angioplasty implant and graft; Z79.01 Long term (current) use of anticoagulants; Z79.02 Long term (current) use of antithrombotics/antiplatelets; Z79.899 Other long term (current) drug therapy; Z86.16 Personal history of COVID-19; Z86.74 Personal history of sudden cardiac arrest; Z87.891 Personal history of nicotine dependence
CPT/HCPCS: 71046; 80053; 81001; 83735; 83880; 84439; 84443; 84484; 85025; 85610; 85730; 87086; 87088; 87631; 93005; 99283

== ENCOUNTER → 2024-09-16 | Outpatient (CLI) | payer MEDICARE, SELFPAY | END | disposition home or self-care (01) | LOC: PSN 12:41 | PROVIDERS: PCP Nurse Practitioner Family; Referring Provider Physician Assistant Medical; Visit Provider Physician Assistant Medical | DX: I48.0 Paroxysmal atrial fibrillation (principal) | CPT/HCPCS: 93225; 93226 ==

== ENCOUNTER → 2025-01-13 | Outpatient (CLI) | payer MEDICARE, SELFPAY ==
[2025-01-13 10:48] LABS: Hematocrit 36.4 % (40-54); Hemoglobin 11.8 g/dL (13.0-16.5); Mean Corp Hgb Conc 32.4 g/dL (32-36); Mean Corpuscular Volume 93.8 fL (80-94); Mean Platelet Vol. 11.0 fl (6.2-12.0); Platelet Count 130 K/mm3 (150-450); RBC Distribution Width CV 15.5 % (11.6-14.6); RBC Distribution Width SD 53.1 fl (35.1-43.9); Red Blood Count 3.88 M/mm3 (4.6-6.2); White Blood Count 7.2 K/mm3 (4.4-11.0)
[2025-01-13 11:16] LABS: Creatinine, Urine (random) 105.00 mg/dL (39.00-259.00); Microalbumin,Random Urine 25.7 mg/L (<20 mg/L)
[2025-01-13 11:31] LABS: AST(SGOT) 27 U/L (<=37); Alanine Aminotransfer ALT/SGPT 12 U/L (<=46); Albumin, Serum 3.9 g/dL (3.4-4.8); Alkaline Phosphatase 88 U/L (40-129); Anion Gap 11 (5-15); BUN 19 mg/dL (4-19); BUN/Creat Ratio 16.9 RATIO (10-20); Calcium,Total 9.5 mg/dL (7.6-11.0); Carbon Dioxide 26.8 mmol/L (21.0-32.0); Chloride 104 mmol/L (98-108); Cholesterol 90 mg/dL (<=200); Globulin 3.5 g/dL (2.2-4.2); Glucose 111 mg/dL (70-99); Low Density Lipoprotein Calc. 44 mg/dL; Potassium 3.9 mmol/L (3.3-5.1); Pro- Brain NATRIURETIC PEPTIDE 2943 pg/mL (<=1800); Triglycerides 61 mg/dL; Very Low Density Lipoprotein 12 mg/dL (5-40); Vitamin D,25 Hydroxy 41.1 ng/mL (30-100); cholesterol:hdl ratio screen 2.77
[2025-01-13 13:44] LABS: PTHIN 44 pg/mL (11-61)
== END | disposition home or self-care (01) ==
LOC: LAB 09:46
PROVIDERS: PCP Nurse Practitioner Family; Referring Provider Nurse Practitioner Family; Visit Provider Nurse Practitioner Family
DX: I13.0 Hypertensive heart and chronic kidney disease with heart failure and stage 1 through stage 4 chronic kidney disease, or unspecified chronic kidney disease (principal); I50.9 Heart failure, unspecified; N18.30 Chronic kidney disease, stage 3 unspecified; E55.9 Vitamin D deficiency, unspecified; E03.9 Hypothyroidism, unspecified; R73.01 Impaired fasting glucose; E78.5 Hyperlipidemia, unspecified
CPT/HCPCS: 36415; 80053; 80061; 82043; 82306; 82570; 83036; 83880; 83970; 84439; 84443; 85027